=== PATIENT | female | born 1945 | race Caucasian/White ===

== ENCOUNTER → 2018-02-01 07:01 | Outpatient (CLI) | payer MEDICARE, OTHER, SELFPAY ==
[2018-02-01 10:20] LABS: Cholesterol 220 mg/dL (200); High Density Lipoprotein 70 mg/dL; Triglycerides 97 mg/dL; Very Low Density Lipoprotein 19 mg/dL (5-40)
== END ==
PROVIDERS: Family Provider Family Medicine; PCP Family Medicine; Visit Provider Family Medicine
DX: E78.00 Pure hypercholesterolemia, unspecified (principal)
CPT/HCPCS: 36415; 80061

== ENCOUNTER → 2018-08-23 06:25 | Outpatient (CLI) | payer MEDICARE, OTHER, SELFPAY ==
[2018-03-16 11:08] VITALS: BMI 22.2
[2018-08-23 07:42] LABS: Microalbumin,Random Urine 32.2 mg/L (NO RANGE EST.); Microalbumin:Creatinine Ratio 49.6 mg/g CRE (<30 mg/g CRE)
[2018-08-23 07:59] LABS: ALB/GLOB Ratio 1.3 RATIO (0.9-2.4); AST(SGOT) 38 U/L (15-37); Alanine Aminotransfer ALT/SGPT 45 U/L (13-56); Alkaline Phosphatase 91 U/L (45-117); Anion Gap 9 (5-15); BUN 19 mg/dL (7-18); BUN/Creat Ratio 15.1 RATIO (10-20); Calcium,Total 8.8 mg/dL (8.5-10.1); Chloride 106 mmol/L (98-107); Cholesterol 242 mg/dL (200); Creatinine, Serum 1.26 mg/dL (0.55-1.02); EST Glomerular Filtration Rate 44 mL/min (>60); Est Glom Filt Rate - Afr Amer 54 mL/min (>60); Glucose 103 mg/dL (74-106); High Density Lipoprotein 71 mg/dL; Potassium 4.5 mmol/L (3.5-5.1); Sodium Level 141 mmol/L (136-145); Thyroid Stim Hormone (TSH) 6.06 uIU/mL (0.358-3.74); Triglycerides 123 mg/dL; Very Low Density Lipoprotein 25 mg/dL (5-40)
--- OUTSIDE RECORDS SUMMARY | 2018-10-18 11:29 | XMS RPT_ITS ---
:1945 Author Organization OHIP Care Team Providers Name Role Phone Tatiana Xiao Attending Unavailable Daniel, Cesar Primary Care Unavailable Cesar Sanchez Attending Unavailable Daniel, Cesar Referring Unavailable Sanchez, Cesar Primary Care Unavailable Erick Anderson Attending Unavailable Sanchez, Cesar Referring Unavailable Daniel, Cesar Primary Care Unavailable Daniel, Cesar Attending Unavailable Sanchez, Cesar Referring Unavailable Sanchez, Cesar Primary Care Unavailable Kameron Game[employer] Consult[employer] Unavailable PROBLEMS PROBLEMS DATE TYPE CONDITION / CODE ATTENDING STATUS SOURCE 08/23/2018 Unknown I10 - Essential Daniel, Cesar Active [facility] ([facility]) [facility] hypertension / Hospital I10(ICD-10) Repository 02/01/2018 Unknown 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 mg/dL Normal UR CREAT 64.90 LAB L502.0500 NO RANGE EST. mg/L Normal 32.2 MICROALBUMIN ,UR LAB L502.0600 <30 mg/g CRE mg/g CRE High 49.6 MALB:CREAT Performed By: #### L502.0250 #### [facility] [address] [place], [address] COMPREHENSIVE METABOLIC Collected: 08/23/2018 Status: F Source: [facility] 6:30 AM [facility] REPOSITORY TYPE CODE TESTS RESULT OUT OF RANGE REFERENCE UNITS LAB L501.0100 74-106 mg/dL Normal GLU 103 Result Comment: Fasting Glucose result from 100 to 125 mg/dL suggests IMPAIRED HOMEOSTASIS per A.D.A. criteria. Please note revised GLUCOSE reference range effective 2017. LAB L501.1000 7-18 mg/dL High BUN 19 LAB L501.1100 0.55-1.02 mg/dL High CREAT,SERUM 1.26 Result Comment: The validity of the calculated GFR AND GFRAA in patients over 70 years has not been determined. Clinical correlation is essential. LAB L501.1110 >60 mL/min Low EST GFR 44 Result Comment: Non- GFR Calc LAB L501.1115 >60 mL/min Low EST GFR - AA 54 Result Comment: GFR Calc LAB L501.1300 10-20 RATIO Normal BUN/CRE 15.1 LAB L501.1500 6.4-8.2 g/dL T Normal PROT 7.0 LAB L501.1800 3.2-5.0 g/dL Normal ALB 4.0 LAB L501.1950 2.2-4.2 g/dL Normal GLOB 3.0 LAB L501.2000 0.9-2.4 RATIO Normal A/G 1.3 LAB L501.2200 8.5-10.1 mg/dL CA Normal 8.8 LAB L501.4100 15-37 U/L High AST 38 LAB L501.4305 45-117 U/L Normal ALK P 91 LAB L501.4405 13-56 U/L Normal ALT 45 LAB L501.4600 0.20-1.00 mg/dL T Normal BILI 0.50 LAB L501.5300 136-145 mmol/L NA Normal 141 LAB L501.5600 3.5-5.1 mmol/L K Normal 4.5 LAB L501.5900 98-107 mmol/L CL Normal 106 LAB L501.6100 21.0-32.0 mmol/L Normal CO2 26.0 LAB L501.6200 5-15 Normal GAP 9 Performed By: #### L500.4050, L500.4100, L501.9520 #### [facility] [address] [place], [place], [id number] LIPID PROFILE Collected: 08/23/2018 Status: F Source: [facility] 6:30 AM [facility] REPOSITORY TYPE CODE TESTS RESULT OUT OF RANGE REFERENCE UNITS LAB L501.4900 200 mg/dL High CHOL 242 Result Comment: <200 mg/dL Desirable 200-240 mg/dL Borderline >240 mg/dL High Risk LAB L501.5000 mg/dL Normal TRIG 123 Result Comment: The drugs N-Acetylcysteine and Metamizole may falsely depress this assay. Serum Triglycerides Reference Interval Normal <150 mg/dL Borderline high 150 - 199 mg/dL High 200 - 499 mg/dL Very High > or = 500 mg/dL LAB L501.6400 mg/dL Normal HDL 71 Result Comment: The drugs N-Acetylcysteine and Metamizole may falsely depress this assay. Reference Range HDL <40 mg/dL Low HDL Cholesterol HDL >or= 60 mg/dL High HDL Cholesterol LAB L501.6500 0-130 mg/dL High LDL 146 LAB L501.6600 5-40 mg/dL Normal VLDL 25 Performed By: #### L500.4050, L500.4100, L501.9520 #### [facility] [address] [place], [place], [id number] THYROID STIM HORMONE Collected: 08/23/2018 Status: F Source: ELOY (TSH) 6:30 AM [facility] REPOSITORY TYPE CODE TESTS RESULT OUT OF RANGE REFERENCE UNITS LAB L501.9520 0.358-3.74 uIU/mL High TSH 6.06 Performed By: #### L500.4050, L500.4100, L501.9520 #### [facility] [address] [place], [place], [id number] URGENT CARE VISIT Observed: 03/16/2018 Status: F Source: [facility] REPORT 12:03 PM [facility] REPOSITORY [facility] [place] [address] OFFICE VISIT Date of Service: 03/16/18 MR#: [id number] Acct: [id number] Name: BERRY BLUM Rep #: [id number] : 1945 Provider: Erick COOK Age/Sex: 72/F Location: [facility] Status: Signed Intake Vital Signs03/16/18 Height 5 ft 6 in 03/16/18 Weight: 138 lb 03/16/18 Body Mass Index (BMI) 22.2 03/16/18 Blood Pressure 118/72 Intake Visit Reasons: Cough 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 [Ecotrin] 81 mg PO DAILY@0800 05/27/16 [History Confirmed 03/16/18] Biotin 20,000 mcg PO DAILY 05/27/16 [History Confirmed 03/16/18] Calcium/D3/Mag Ox/Ag Service Manager/Arash/Zn [Caltrate+D3 Plus Mineral Minis] 1 ea PO DAILY 05/27/16 [History Confirmed 03/16/18] Cholecalciferol (VIT D3) [Vitamin D3] 1,000 unit PO DAILY 05/27/16 [History Confirmed 03/16/18] Flavoring Agent [Cinnamon] 3.7 ml MC DAILY 05/27/16 [History Confirmed 03/16/18] Metoprolol Tartrate 50 mg PO DAILY 05/27/16 [History Confirmed 03/16/18] Multivit-Min/Iron/Folic/Lutein [Centrum Silver Women Tablet] 1 ea PO DAILY 05/27/16 [History Confirmed 03/16/18] Tacoma-3 Fatty Acids [Tacoma-3] 1,000 mg PO DAILY 05/27/16 [History Confirmed 03/16/18] Ubidecarenone [Coq10] 200 mg PO DAILY 05/27/16 [History Confirmed 03/16/18] Vitamin B Complex/Folic Acid [Sm Vitamin B Complex Tablet] 0.4 mg PO DAILY 05/27/16 [History Confirmed 03/16/18] benzonatate 200 mg capsule 200 mg PO TID PRN #20 cap 03/16/18 [Rx Confirmed 03/16/18] [facility] Medical History Arthritis (Acute) History of cancer (Acute) neck/back pain (Acute) Hypertension (Chronic) Social History Smoking Status: Never smoker alcohol intake: current alcohol intake frequency: 0-2 drinks per day Alcohol type: wine HPI HPI Chief Complaint: Cough Details: BERRY BLUM, is a 72 F who presents to the office today for initial evaluation cough 3 days. Patient has no complaints fever, chills, sweats, rash, chest pain/shortness of breath. Patient is a non-smoker noting her had had similar symptoms 2 days ago which resolved without medical intervention for him. Patient notes no other associated symptoms and no other alleviating or aggravating factors. ROS Const Constitutional: No excessive sweating, abnormal sleep pattern, chills, fever(s), night sweats or body ache Eyes Eyes: No change in vision ENT ENT: No abnormal hearing, ear pain, ear discharge, ear pressure, hearing loss, post nasal drip or sinus pressure Resp Respiratory: Positive for cough; no chest congestion or shortness of breath Cardio Cardiology: No excessive sweating, chest pain at rest, chest pain with exertion, shortness of breath, dyspnea on exertion, irregular heart rhythm, generalized swelling or leg pain with exertion Gastro GI: No abdominal pain, change in stool character or change in bowel habits Musc Musculoskeletal: No joint pain, back pain or limited range of motion Skin Skin: No rash Neuro Neurology: No abnormal hearing, abnormal speech or abnormal movements Psych Psychiatric: No abnormal sleep pattern Endo Endocrine: No excessive sweating Exam Const General: cooperative, healthy appearing, no acute distress, comfortable Nutritional Appearance: average body habitus Orientation: alert, awake, oriented x3 HENMT Head: normal to inspection Ears: hearing grossly normal bilaterally, external ears normal, TM's normal bilaterally, EAC's normal Nose: external nose normal, nares normal, septum normal, no nasal discharge Face and sinus: normal facial exam, face symmetric, sinuses nontender Mouth: tongue normal, lip normal, oropharynx normal, oral mucosae normal Teeth and gingiva: dentition normal, gingiva normal Throat: uvula midline, tonsils normal, posterior oropharynx normal, no postnasal drainage Eyes General: appearance normal, both eyes and all related structures Neck Neck: normal visual inspection, full ROM, no lymphadenopathy, no meningeal signs, supple Neck mass: No Thyroid: thyroid normal Lymphatic: no lymphadenopathy noted Chest Chest palpation AND inspection: normal inspection of the chest Resp Effort AND Inspection: normal respiratory effort, able to speak in complete sentences, symmetric chest movement, no cough (No unsolicited cough appreciated during today's exam) Auscultation: Bilateral: Clear to Auscultation Cardio Palpation: normal PMI Rate: regular rate Rhythm: regular rhythm Heart Sounds: S1 normal, S2 normal, no gallops, no murmurs, no rubs Pulses: radial pulses present GI Inspection: normal to inspection Palpation: soft Skin General: no rashes or lesions noted Neuro General: alert, awake, oriented x3, gait normal Cognition: normal cognition Speech: speech normal Gait: normal gait Motor: muscle tone normal throughout Sensory Exam: no sensory deficits noted Psych Appearance: grossly normal Mental Status: mental status grossly normal Mood: congruent mood Affect: normal affect Speech and Movement: speech and movement normal Attitude: cooperative Thought Process: normal Thought Content: normal Judgment: judgment good Assessment AND Plan Problems 1. Bronchitis J40 Plan Benzonatate as needed as prescribed today. Clear fluids, rest, Tylenol as needed for symptomatic relief. Avoid smoke exposure. Follow-up with PCP in 5 7 days should symptoms not improved, sooner should symptoms worsen or any other concerns develop. Patient states acknowledging understanding all the above. This note was generated with [employer] dictation software. It may contain incorrect words, spelling, and punctuation that were not noted in checking the note before signing. Medications New: Coding Level of Care Code Off vis,est,level 3 Diagnoses Bronchitis J40 03/16/18 1203 <Electronically signed by Erick COOK> Date Erick COOK Cosigner Signature: Date (if applicable) CC: LIPID PROFILE Collected: 02/01/2018 Status: F Source: [facility] 7:06 AM [facility] REPOSITORY TYPE CODE TESTS RESULT OUT OF RANGE REFERENCE UNITS LAB L501.4900 200 mg/dL High CHOL 220 Result Comment: <200 mg/dL Desirable 200-240 mg/dL Borderline >240 mg/dL High Risk LAB L501.5000 mg/dL Normal TRIG 97 Result Comment: The drugs N-Acetylcysteine and Metamizole may falsely depress this assay. Serum Triglycerides Reference Interval Normal <150 mg/dL Borderline high 150 - 199 mg/dL High 200 - 499 mg/dL Very High > or = 500 mg/dL LAB L501.6400 mg/dL Normal HDL 70 Result Comment: The drugs N-Acetylcysteine and Metamizole may falsely depress this assay. Reference Range HDL <40 mg/dL Low HDL Cholesterol HDL >or= 60 mg/dL High HDL Cholesterol LAB L501.6500 0-130 mg/dL High LDL 131 LAB L501.6600 5-40 mg/dL Normal VLDL 19 Performed By: #### L500.4100 #### [facility] [address] [place], [address] LT BRST UNILAT KIRBY Observed: 10/12/2017 Status: F Source: [facility] ADD ON 8:23 AM [facility] REPOSITORY [facility] Services [address] [place] [address] Lt Brst Unilat Kirby Add On MR#: [id number] Acct: [id number] Name: BERRY BLUM Rep #: [id number] : 1945 F 72 From: Jaya Durand MD PCP: Cesar Sanchez MD Status: REG CLI Study: Lt Brst Unilat Kirby Add On Date of Exam: 10/12/17 Exam# [id number] Ordering Dr: Tatiana Xiao MD MAMMOGRAPHY - UNILATERAL SCREENING: LEFT BREAST REASON FOR EXAM: Female, 72 years old. Routine annual screening examination (unilateral). PERTINENT HISTORY: Personal history of breast cancer. Prior right mastectomy. TECHNIQUE: Digital unilateral breast kirby (3D mammographic acquisition) in the CC and MLO projections. 2-D mediolateral oblique (MLO) and craniocaudad (CC) views of both breasts were obtained. CAD: Full Field Digital Mammography with Computer Added Detection was performed. COMPARISON: Comparison is made with prior study dated September 23, 2016 and August 18, 2015. FINDINGS: Breast Composition: There are scattered areas of fibroglandular density. There are no dominant masses or suspicious calcifications. No other significant abnormalities are identified. There has been no significant change since the prior study. HPBI/Lt Brst Unilat Kirby Add On IMPRESSION: Stable unilateral screening mammogram. Yearly follow-up mammogram recommended. (A) ASSESSMENT CATEGORY: BIRADS Category 1: Negative. A letter regarding these results will be sent to the patient by the facility within 30 days. Approximately 10% of breast cancers are not detected by mammography. A normal mammogram should not delay biopsy of a clinically suspicious abnormality. [id number] Electronically Signed: Jaya Durand MD at 10:39 EST Tel [phone], Service support , CC: Tatiana Xiao MD; Cesar Sanchez MD Digital Asset Coordinator: Signed UNILABEL LT SCRN Observed: 10/12/2017 Status: F Source: [facility] W/BABITA 8:23 AM [facility] REPOSITORY [facility] Imaging Services [address] [place] [address] UNILAT LT SCRN W/CAD MR#: [id number] Acct: [id number] Name: BERRY BLUM Rep #: [id number] : 1945 F 72 From: Jaya Durand MD PCP: Cesar Sanchez MD Status: REG CLI Study: UNILAT LT SCRN W/CAD Date of Exam: 10/12/17 Exam# [id number] Ordering Dr: Tatiana Xiao MD MAMMOGRAPHY - UNILATERAL SCREENING: LEFT BREAST REASON FOR EXAM: Female, 72 years old. Routine annual screening examination (unilateral). PERTINENT HISTORY: Personal history of breast cancer. Prior right mastectomy. TECHNIQUE: Digital unilateral breast kirby (3D mammographic acquisition) in the CC and MLO projections. 2-D mediolateral oblique (MLO) and craniocaudad (CC) views of both breasts were obtained. CAD: Full Field Digital Mammography with Computer Added Detection was performed. COMPARISON: Comparison is made with prior study dated September 23, 2016 and August 18, 2015. FINDINGS: Breast Composition: There are scattered areas of fibroglandular density. There are no dominant masses or suspicious calcifications. No other significant abnormalities are identified. There has been no significant change since the prior study. [facility] SCRN W/CAD IMPRESSION: Stable unilateral screening mammogram. Yearly follow-up mammogram recommended. (A) ASSESSMENT CATEGORY: BIRADS Category 1: Negative. A letter regarding these results will be sent to the patient by the facility within 30 days. Approximately 10% of breast cancers are not detected by mammography. A normal mammogram should not delay biopsy of a clinically suspicious abnormality. [id number] Electronically Signed: Jaya Durand MD at 10:39 EST Tel [phone], Service support , CC: Tatiana Xiao MD; Cesar Sanchez MD Digital Asset Coordinator: Signed ALLERGIES ALLERGIES DATE TYPE / CODE NAME / CODE REACTION SEVERITY SOURCE 03/16/2018 Drug bupropion Hives [facility] [place] [facility] Allergy/416 HCl/[id number](R Hospital 616949(SNOM XNORM) Repository ED CT) ENCOUNTERS ENCOUNTERS ADMIT/DISCHARGE ACCOUNT ADMITTING ENCOUNTER LOCATION SOURCE NUMBER CLASS 08/23/2018 [id number] Ambulatory [place] [facility] ing:LAB Repository 03/16/2018/ [id number] Ambulatory BMSBuilding:B [place] [facility] 1 [place] Hospital Repository 02/01/2018 [id number] Ambulatory [place] 8 [facility] ing:MTLAB Repository 10/12/2017 [id number] Ambulatory [place] 0 [facility] ing:BI Repository PAYERS PAYERS ENCOUNTER GUARANTOR PAYER SUBSCRIBER SOURCE 08/23/2018 BERRY A Primary BERRY A [place] [id number] Insurance:MEDICARE WATSONDOB: Formerly [facility] SHIMA PART A BPolicy [place]: [id number] Repository [address]Rye: (330) Date:2018-08-23 [phone] () 08/23/2018 Secondary BERRY A [place] Insurance:HUMANA WATSONDOB: Formerly [facility] [id number] Hospital Number: Repository [id number] Date:[id number] [address] [place] [address]ZA: 08/23/2018 Tertiary NOT GIVENUNK [place] Insurance:SELF PAY [facility] Number: Effective Repository Date:2018-08-23 03/16/2018 BERRY A Primary BERRY A [place] [id number] Insurance:MEDICARE WATSONDOB: Formerly [facility] SHIMA PART A BPolicy Number: [id number] [id number] Repository [address]Gyr: (330) Date:2018-03-16 [phone] () 03/16/2018 Secondary BERRY A [place] Insurance:HUMANA WATSONDOB: [facility]ly [facility] [id number] Hospital Number: Repository [id number] Date:0577-22-08CT [address] [place] [id number]: 03/16/2018 Tertiary NOT GIVENUNK [place] Insurance:SELF PAY [facility] Number: Effective Repository Date:2018-03-16 02/01/2018 Berry A Primary Berry A [facility] [id number] Insurance:MEDICARE WatsonDOB: Community Shima PART A BPolicy Number: [id number] [id number] Repository [address]Nqr: Date:2018-02-01 ~33 0-2 (HP) 02/01/2018 Secondary Berry A [place] Insurance:HUMANA WatsonDOB: [facility]ly [facility] [id number] Hospital Number: Repository [id number] Date:[id number] [address] [address]AG: 02/01/2018 Tertiary NOT GIVENUNK [facility] Insurance:SELF PAY [facility] Number: Effective Repository Date:2018-02-01 10/12/2017 Berry A Primary Berry A [facility] [id number] Insurance:MEDICARE WatsonDOB: Community Shima PART A BPolicy Number: [id number] [id number] Repository [address]Nyd: Date:2017-09-06 ~33 0-2 (HP) 10/12/2017 Secondary Berry A [facility] Insurance:HUMANA WatsonDOB: [facility] [id number] Hospital Number: Repository [id number] Date:[id number] [address] [address]VA: 10/12/2017 Tertiary NOT GIVENUNK [facility] Insurance:SELF PAY [facility] Number: Effective Repository Date:2017-09-06
== END ==
PROVIDERS: Family Provider Family Medicine; PCP Family Medicine; Referring Provider Family Medicine; Visit Provider Family Medicine
DX: I10 Essential (primary) hypertension (principal); E78.00 Pure hypercholesterolemia, unspecified
CPT/HCPCS: 36415; 80053; 80061; 82043; 82570; 84443

== ENCOUNTER → 2018-10-26 09:19 | Outpatient (CLI) | payer MEDICARE, OTHER, SELFPAY ==
--- NOTE | 2018-10-26 09:24 | BI_ITS ---
MAMMOGRAPHY - UNILATERAL DIAGNOSTIC: LEFT BREAST REASON FOR EXAM: Female, 73 years old. Prior right mastectomy and reconstruction. PERTINENT HISTORY: Personal history of breast cancer. TECHNIQUE: Digital unilateral breast montse (3D mammographic acquisition) in the CC and MLO projections. 2-D mediolateral oblique (MLO) and craniocaudad (CC) views of both breasts were obtained. CAD: Full Field Digital Mammography with Computer Added Detection was performed. COMPARISON: Comparison is made with prior study dated October 12, 2017 and September 23, 2016. FINDINGS: Breast Composition: There are scattered areas of fibroglandular density. There are no dominant masses or suspicious calcifications. No other significant abnormalities are identified. There has been no significant change since the prior study. BI/UNILAT LT SCRN W/CAD IMPRESSION: Stable unilateral diagnostic mammogram. One year follow-up mammogram recommended. (A) ASSESSMENT CATEGORY: BIRADS Category 1: Negative. A letter regarding these results will be sent to the patient by the facility within 30 days. Approximately 10% of breast cancers are not detected by mammography. A normal mammogram should not delay biopsy of a clinically suspicious abnormality. Electronically Signed: Jaya Durand MD at 10:59 EST , Service support ,
--- NOTE | 2018-10-26 09:26 | BD_ITS ---
STUDY: DUAL ENERGY X-RAY ABSORPTIOMETRY / DXA REASON FOR EXAM: Female, 73 years old. The patient is postmenopausal. Loss of height. History of breast cancer. TECHNIQUE: Bone Mineral Density (BMD) measurements of lumbar spine and bilateral hips were obtained. COMPARISON: None. FINDINGS: Lumbar Spine (L1-L4): g/cm2 (1.526) / T-score (3.0) / Z-score (4.7) Findings are suggestive of normal bone density with a low fracture risk. Left Femur Total: g/cm2 (1.098) / T-score (0.7) / Z-score (2.3) Left Femoral Neck: g/cm2 (0.981) / T-score (-0.4) / Z-score (1.4) Right Femur Total: g/cm2 (1.115) / T-score (0.9) / Z-score (2.5) Right Femoral Neck: g/cm2 (1.0-4) / T-score (-0.1) / Z-score (1.7) BD/Dexa Bone Density Study IMPRESSION: The patient is considered normal as outlined below according to World [place] Organization (WHO) criteria with a low fracture risk. Reference Information: The T-score is the number of standard deviations above or below the standard which is normal for young adults at their peak bone mineral density. The World Health Organization (WHO) interprets the T-scores as follows: Above -1 Normal bone density Between -1 and -2.5 Osteopenia Equal to / or below -2.5 Osteoporosis As a practical clinical guideline, osteopenia may be graded as follows: Mild -1 through -1.5 Moderate -1.6 through -2.0 Severe -2.1 through -2.4 The Z-score is the number of standard deviations above or below age-matched controls. A Z-score of less than -1.5 would be considered abnormal. References: 1. NIH Osteoporosis and Related Bone Diseases http://www.osteo.org 2. International Society for Clinical Densitometry http://www.iscd.org 3. National Osteoporosis Foundation http://www.nof.org Electronically Signed: Jaya Durand MD at 15:37 EST , Service support ,
== END ==
PROVIDERS: Family Provider Family Medicine; PCP Family Medicine; Referring Provider Obstetrics & Gynecology; Visit Provider Obstetrics & Gynecology
DX: Z12.31 Encounter for screening mammogram for malignant neoplasm of breast (principal); Z13.820 Encounter for screening for osteoporosis; Z78.0 Asymptomatic menopausal state; Z85.3 Personal history of malignant neoplasm of breast
CPT/HCPCS: 77061; 77063; 77067; 77080; G0279

== ENCOUNTER → 2019-02-02 | Outpatient (CLI) | payer MEDICARE, OTHER, SELFPAY ==
[2019-02-02 08:08] LABS: ALB/GLOB Ratio 1.4 RATIO (0.9-2.4); AST(SGOT) 36 U/L (15-37); Alanine Aminotransfer ALT/SGPT 43 U/L (13-56); Albumin, Serum 3.9 g/dL (3.2-5.0); Alkaline Phosphatase 74 U/L (45-117); Anion Gap 6 (5-15); BUN 17 mg/dL (7-18); BUN/Creat Ratio 14.5 RATIO (10-20); Calcium,Total 8.5 mg/dL (8.5-10.1); Chloride 109 mmol/L (98-107); Cholesterol 241 mg/dL (200); Creatinine, Serum 1.17 mg/dL (0.55-1.02); EST Glomerular Filtration Rate 48 mL/min (>60); Est Glom Filt Rate - Afr Amer 58 mL/min (>60); Globulin 2.7 g/dL (2.2-4.2); Glucose 94 mg/dL (74-106); High Density Lipoprotein 65 mg/dL; Potassium 4.2 mmol/L (3.5-5.1); Protein, Total 6.6 g/dL (6.4-8.2); Sodium Level 142 mmol/L (136-145); T4 Free Direct 0.91 ng/dL (0.76-1.46); Thyroid Stim Hormone (TSH) 2.62 uIU/mL (0.358-3.74); Triglycerides 130 mg/dL; Very Low Density Lipoprotein 26 mg/dL (5-40)
== END | disposition home or self-care (01) ==
LOC: LAB 06:08
PROVIDERS: Family Provider Family Medicine; PCP Family Medicine; Referring Provider Family Medicine; Visit Provider Family Medicine
DX: I10 Essential (primary) hypertension (principal); R79.89 Other specified abnormal findings of blood chemistry; E78.5 Hyperlipidemia, unspecified; E03.9 Hypothyroidism, unspecified
CPT/HCPCS: 36415; 80053; 80061; 84439; 84443; 84481

== ENCOUNTER → 2019-06-05 13:45 | Outpatient (CLI) | payer MEDICARE, OTHER, SELFPAY ==
[2019-06-05 13:20] VITALS: BMI 25.4
--- NOTE | 2019-06-05 13:46 | CT_ITS ---
STUDY: LOW DOSE CT LUNG CANCER SCREENING REASON FOR EXAM: Female, 73 years old. Former smoker. Quit in 2005. 1 pack per day for 40 years. History of right breast carcinoma with mastectomy. RADIATION DOSAGE (If Supplied By Facility): CTDIvol = ( 1.70 ) mGy, DLP = ( 55.94 ) mGycm TECHNIQUE: No contrast was administered. Low dose technique was utilized (average mAS-38 and kVp 120). 1.25 mm axial source images with a slice interval of 1.25-mm were reconstructed in lung windows. 2.5 mm axial source images with a slice interval of 2.5-mm were reconstructed in lung windows. 5.0 mm axial source images with a slice interval of 5.0-mm were reconstructed in soft tissue windows. Nodule measured using lung windows on PACS and/or independent workstation with automated measurement of minimum and maximum diameter. Nodule measurement reported as average diameter rounded to the nearest whole number. Growth is defined as an increase ins size of greater than 1.5 mm. COMPARISON: None. Prior right mastectomy with right breast prosthesis. NODULES: No suspicious nodules seen. Emphysema: Emphysematous changes more prominent in the upper lobes. Findings suggestive scarring in the anterior aspect of the lingular segment of the left lower lobe. Aorta: Atherosclerotic calcification plaques. Coronary arteries: Coronary artery calcification. Mediastinal nodes: Unremarkable. Other chest and abdominal findings: Degenerative changes of the thoracic spine. CT/Low Dose CT Lung Screening IMPRESSION: Lung-RADS category 2 - Continue annual screening with LDCT in 12 months. IMPORTANT NOTES FOR USE: ACR Lung-RADS Version 1.0 Assessment Categories Release Date: January 21, 2014 Category: Coded 0-4 bases on nodule(s) with highest degree of suspicion. Negative screen is defined as categories 1 and 2; a positive screen is defined as categories 3 and 4. Category 3 and 4A nodules that are unchanged on interval CT should be coded as category 2, and individuals returned to screening in 12 months. Category 4X: Category 3 or 4 nodules with additional imaging findings that increase the suspicion of lung cancer, such as spiculation, GGN that doubles in size in 1 year, enlarged lymph notes, etc. Category Modifiers: S (significant finding unrelated to lung cancer) and C (prior history of treated lung cancer) may be added to the 0-4 Lung-RADS Electronically Signed: Jaya Durand, at 14:43 EDT , Service support ,
== END ==
PROVIDERS: Family Provider Family Medicine; PCP Family Medicine; Referring Provider Nurse Practitioner Family; Visit Provider Nurse Practitioner Family
DX: Z12.2 Encounter for screening for malignant neoplasm of respiratory organs (principal); Z87.891 Personal history of nicotine dependence
CPT/HCPCS: G0297

== ENCOUNTER → 2019-10-31 06:50 | Outpatient (CLI) | payer MEDICARE, OTHER, SELFPAY ==
[2019-06-05 13:20] VITALS: BMI 25.4
[2019-10-31 07:59] LABS: ALB/GLOB Ratio 1.4 RATIO (0.9-2.4); AST(SGOT) 23 U/L (15-37); Alanine Aminotransfer ALT/SGPT 34 U/L (13-56); Albumin, Serum 3.9 g/dL (3.2-5.0); Alkaline Phosphatase 68 U/L (45-117); Anion Gap 4 (5-15); BUN 16 mg/dL (7-18); BUN/Creat Ratio 13.1 RATIO (10-20); Calcium,Total 9.3 mg/dL (8.5-10.1); Chloride 107 mmol/L (98-107); Cholesterol 247 mg/dL (200); Creatinine, Serum 1.22 mg/dL (0.55-1.02); EST Glomerular Filtration Rate 46 mL/min (>60); Est Glom Filt Rate - Afr Amer 55 mL/min (>60); Globulin 2.7 g/dL (2.2-4.2); Glucose 90 mg/dL (74-106); High Density Lipoprotein 77 mg/dL; Potassium 3.9 mmol/L (3.5-5.1); Protein, Total 6.6 g/dL (6.4-8.2); Sodium Level 142 mmol/L (136-145); Triglycerides 192 mg/dL; Very Low Density Lipoprotein 38 mg/dL (5-40)
[2019-10-31 08:11] LABS: Microalbumin,Random Urine 29.1 mg/L (NO RANGE EST.); Microalbumin:Creatinine Ratio 43.2 mg/g CRE (<30 mg/g CRE)
== END ==
PROVIDERS: PCP Family Medicine; Referring Provider Family Medicine; Visit Provider Family Medicine
DX: I10 Essential (primary) hypertension (principal); E78.00 Pure hypercholesterolemia, unspecified
CPT/HCPCS: 36415; 80053; 80061; 82043; 82570

== ENCOUNTER → 2019-11-08 07:30 | Outpatient (CLI) | payer MEDICARE, OTHER, SELFPAY ==
[2019-06-05 13:20] VITALS: BMI 25.4
--- NOTE | 2019-11-08 07:34 | BI_ITS ---
MAMMOGRAPHY - UNILATERAL SCREENING: LEFT BREAST REASON FOR EXAM: Female, 74 years old. Routine annual screening examination (unilateral). PERTINENT HISTORY: Personal history of breast cancer. Prior right mastectomy and right breast reconstruction. TECHNIQUE: Digital unilateral breast waleska (3D mammographic acquisition) in the CC and MLO projections. 2-D mediolateral oblique (MLO) and craniocaudad (CC) views of both breasts were obtained. CAD: Full Field Digital Mammography with Computer Added Detection was performed. COMPARISON: Comparison is made with prior mammogram dated October 26, 2018 and October 12, 2017. FINDINGS: Breast Composition: There are scattered areas of fibroglandular density. There are no dominant masses or suspicious calcifications. Stable benign-appearing small left axillary lymph nodes. No other significant abnormalities are identified. There has been no significant change since the prior study. BI/SCREEN MAMM (CAD) W/WALESKA UNI L IMPRESSION: Stable unilateral screening mammogram. Yearly follow-up mammogram recommended. (A) ASSESSMENT CATEGORY: BIRADS Category 2: Benign. A letter regarding these results will be sent to the patient by the facility within 30 days. Approximately 10% of breast cancers are not detected by mammography. A normal mammogram should not delay biopsy of a clinically suspicious abnormality. [id number] Electronically Signed: Jaya Durand, at 8:51 EST , Service support ,
== END ==
PROVIDERS: PCP Family Medicine; Referring Provider Family Medicine; Visit Provider Family Medicine
DX: Z12.31 Encounter for screening mammogram for malignant neoplasm of breast (principal); Z85.3 Personal history of malignant neoplasm of breast
CPT/HCPCS: 77063; 77067

== ENCOUNTER → 2020-04-10 09:08 | Outpatient (CLI) | payer MEDICARE, OTHER, SELFPAY ==
[2019-06-05 13:20] VITALS: BMI 25.4
[2020-04-10 10:43] LABS: BUN 12 mg/dL (7-18); Creatinine, Serum 1.07 mg/dL (0.55-1.02); Glucose 98 mg/dL (74-106)
[2020-04-10 10:44] LABS: Anion Gap 6 (5-15); BUN/Creat Ratio 11.2 RATIO (10-20); Calcium,Total 9.1 mg/dL (8.5-10.1); Chloride 108 mmol/L (98-107); EST Glomerular Filtration Rate 53 mL/min (>60); Est Glom Filt Rate - Afr Amer 64 mL/min (>60); Potassium 4.6 mmol/L (3.5-5.1); Sodium Level 141 mmol/L (136-145)
[2020-04-10 13:28] LABS: Microalbumin,Random Urine 10.3 mg/L (NO RANGE EST.); Microalbumin:Creatinine Ratio 59.5 mg/g CRE (<30 mg/g CRE)
== END ==
PROVIDERS: PCP Family Medicine; Referring Provider Family Medicine; Visit Provider Family Medicine
DX: I10 Essential (primary) hypertension (principal)
CPT/HCPCS: 36415; 80048; 82043; 82570

== ENCOUNTER → 2020-06-05 06:02 | Outpatient (CLI) | payer MEDICARE, OTHER, SELFPAY ==
[2020-06-04 08:52] VITALS: BMI 25.2
[2020-06-05 08:22] LABS: AST(SGOT) 31 U/L (15-37); Alanine Aminotransfer ALT/SGPT 35 U/L (13-56); Albumin, Serum 3.8 g/dL (3.2-5.0); Alkaline Phosphatase 95 U/L (45-117); Bilirubin, Direct 0.15 mg/dL (0.00-0.30); Cholesterol 239 mg/dL (200); Globulin 2.8 g/dL (2.2-4.2); High Density Lipoprotein 58 mg/dL; Protein, Total 6.6 g/dL (6.4-8.2); Triglycerides 206 mg/dL; Very Low Density Lipoprotein 41 mg/dL (5-40)
== END ==
PROVIDERS: PCP Family Medicine; Referring Provider Internal Medicine Cardiovascular Disease; Visit Provider Internal Medicine Cardiovascular Disease
DX: E78.5 Hyperlipidemia, unspecified (principal); R07.89 Other chest pain
CPT/HCPCS: 36415; 80061; 80076

== ENCOUNTER → 2020-06-17 12:19 | Outpatient (CLI) | payer MEDICARE, OTHER, SELFPAY ==
[2019-06-05 13:20] VITALS: BMI 25.4
[2020-06-04 08:52] VITALS: BMI 25.2
--- NOTE | 2020-06-17 12:20 | CT_ITS ---
STUDY: LOW DOSE CT LUNG CANCER SCREENING REASON FOR EXAM: Female, 74 years old. LUNG CANCER SCREENING 40 PACK YEAR HISTORY RADIATION DOSAGE (If Supplied By Facility): CTDIvol = ( 3.02 ) mGy, DLP = ( 109.10 ) mGycm TECHNIQUE: No contrast was administered. Low dose technique was utilized (average mAS-38 and kVp 120). 1.25 mm axial source images with a slice interval of 1.25-mm were reconstructed in lung windows. 2.5 mm axial source images with a slice interval of 2.5-mm were reconstructed in lung windows. 5.0 mm axial source images with a slice interval of 5.0-mm were reconstructed in soft tissue windows. Nodule measured using lung windows on PACS and/or independent workstation with automated measurement of minimum and maximum diameter. Nodule measurement reported as average diameter rounded to the nearest whole number. Growth is defined as an increase ins size of greater than 1.5 mm. COMPARISON: Comparison is made with prior study dated 06/05/2019. Prior right mastectomy and breast prosthesis. NODULES: No suspicious nodules are seen. Emphysema: Stable emphysematous changes more prominent in the upper lobes. Mild scarring in the anterior aspect of the lingular segment of the left upper lobe. Aorta: Atherosclerotic plaque formation of the aortic arch. Coronary arteries: Coronary artery calcification. Heart: Unremarkable Pulmonary artery: Unremarkable Mediastinal nodes: Small mediastinal lymph nodes. Other chest and abdominal findings: CT/Low Dose CT Lung Screening IMPRESSION: Lung-RADS category 2 - Continue annual screening with LDCT in 12 months. IMPORTANT NOTES FOR USE: ACR Lung-RADS Version 1.0 Assessment Categories Release Date: January 21, 2014 Category: Coded 0-4 bases on nodule(s) with highest degree of suspicion. Negative screen is defined as categories 1 and 2; a positive screen is defined as categories 3 and 4. Category 3 and 4A nodules that are unchanged on interval CT should be coded as category 2, and individuals returned to screening in 12 months. Category 4X: Category 3 or 4 nodules with additional imaging findings that increase the suspicion of lung cancer, such as spiculation, GGN that doubles in size in 1 year, enlarged lymph notes, etc. Category Modifiers: S (significant finding unrelated to lung cancer) and C (prior history of treated lung cancer) may be added to the 0-4 Lung-RADS Electronically Signed: Jaya Durand, at 12:58 EDT , Service support ,
== END ==
PROVIDERS: PCP Family Medicine; Referring Provider Nurse Practitioner Family; Visit Provider Nurse Practitioner Family
DX: Z12.2 Encounter for screening for malignant neoplasm of respiratory organs (principal); Z87.891 Personal history of nicotine dependence
CPT/HCPCS: G0297

== ENCOUNTER → 2020-06-23 06:46 | Outpatient (CLI) | payer MEDICARE, OTHER, SELFPAY ==
[2020-06-04 08:52] VITALS: BMI 25.2
--- NOTE | 2020-06-23 06:47 | ECHOCS_ITS ---
Reason For Study: Murmur Procedure This was a 2D Doppler, Color Flow transthoracic echocardiogram. Contrast injection was performed. Exam performed in department. Left Ventricle Normal LV size. Left ventricular systolic function is normal. The estimated ejection fraction is 65 %. Stage 1 diastolic dysfunction. No regional wall motion abnormalities noted. Right Ventricle Normal RV size. Normal systolic function. Atria Normal left atrium. Normal right atrium. Mitral Valve Normal mitral valve. Mild (1+) mitral valve insufficiency. Tricuspid Valve Normal tricuspid valve. Mild (1+) tricuspid valve insufficiency. Pulmonary artery systolic pressure is 30 mmHg. Aortic Valve Trisinus/trileaflet aortic valve. Mild focal aortic valve calcification. Mild aortic stenosis. Pulmonic Valve Normal pulmonic valve. Great Vessels Calcified aortic root. The pulmonary artery is normal size. Normal inferior vena cava. Pericardium/Pleural No pericardial effusion. Medication Diluted definity 3ml given slow IV push to enhance endocardial definition. MMode/2D Measurements & Calculations LVIDd: 4.9 cm IVSd: 0.96 cm LVOT diam: 2.1 cm LVIDs: 2.9 cm LVPWd: 0.97 cm RVDd: 2.8 cm FS: 40.5 % LVOT area: 3.4 cm2 Ao root diam: 3.1 cm LAV(MOD-bp): 41.6 ml LA A4 area: 16.7 cm2 LAV(MOD-bp) Indexed: 23.7 ml/m2 LAV(MOD-sp2): 42.2 ml LAV(MOD-sp4): 38.5 ml LA dimension(2D): 4.4 cm RA A4 area: 11.7 cm2 Doppler Measurements & Calculations MV E max angel: 55.1 cm/sec Lat Peak E' Angel: 5.4 cm/sec Med Peak E' Angel: 2.8 cm/sec MV A max angel: 85.7 cm/sec E/E' lat: 10.3 E/E' med: 19.9 MV E/A: 0.64 Ao V2 max: 144.9 cm/sec LV V1 max: 78.5 cm/sec PA V2 max: 66.7 cm/sec Ao max P.4 mmHg LV V1 max P.5 mmHg Ao V2 mean: 104.4 cm/sec Ao mean P.8 mmHg Ao V2 VTI: 33.3 cm CINDY(V,D): 1.8 cm2 TR max angel: 254.1 cm/sec TR max P.8 mmHg Interpretation Summary Normal LV size. Left ventricular systolic function is normal. The estimated ejection fraction is 65 %. Stage 1 diastolic dysfunction. Contrast injection was performed. Ordering Physician: Kameron Gamez Referring Physician: Cesar Sanchez Performed By: Maya Logan, RDCS, RVT
--- NOTE | 2020-06-23 18:19 | STRESSREP ---
Stress Test Report Exercise myocardial perfusion stress test. 74-year-old lady with a history of incomplete right bundle branch block hypertension and hyperlipidemia. Stress protocol: Resting EKG demonstrates normal sinus rhythm with a rate of 55 bpm right bundle branch block is noted. Resting blood pressure is 114/70 mmHg. The patient exercised according to the regular Miguel protocol for a total duration of 9 minutes. The maximum heart rate attained was 141 bpm which was 96% of maximum predicted heart rate the maximum workload was 10.1 metabolic equivalents. At rest there were no ST or T wave changes noted to suggest ischemia. At peak exercise upsloping ST changes noted less than 1 mm. The above did not meet the criteria for ischemia. No clinical angina was noted the test was terminated due to the target heart rate being achieved as well as dyspnea. The peak blood pressure was 156/72 mmHg with a rate-pressure product of 21,600. Myocardial perfusion protocol. 10.9 mCi of technetium 99m sestamibi was injected at rest. The patient exercised according to regular Miguel protocol for 9 minutes at peak exercise 32.6 mCi of technetium 99m sestamibi was injected stress images were obtained stress and rest images were reconstructed and compared in the short axis vertical long horizontal long axis. Gated images were also obtained. Perfusion SPECT analysis: Review of the stress images demonstrate normal uptake of tracer noted in all areas of the myocardium the resting images similar demonstrate normal uptake of tracer noted in all areas of the myocardium. No areas of reversibility are noted suggest ischemia no previous infarct is noted. Gated SPECT analysis: The gated ejection fraction is noted to be 86%. Conclusion: Exercise myocardial perfusion stress test with no evidence of ischemia noted at a high workload. No clinical angina noted. Preserved ejection fraction.
== END ==
PROVIDERS: PCP Family Medicine; Referring Provider Internal Medicine Cardiovascular Disease; Visit Provider Internal Medicine Cardiovascular Disease
DX: R07.89 Other chest pain (principal)
CPT/HCPCS: 78452; 93017; 93306; A9500; Q9957; A4216; C8929

== ENCOUNTER → 2020-11-10 07:02 | Outpatient (CLI) | payer MEDICARE, OTHER, SELFPAY ==
[2020-06-04 08:52] VITALS: BMI 25.2
--- NOTE | 2020-11-10 07:05 | BI_ITS ---
MAMMOGRAPHY - UNILATERAL SCREENING: LEFT BREAST REASON FOR EXAM: Female, 75 years old. Routine annual screening examination (unilateral). PERTINENT HISTORY: Personal history of breast cancer. Prior right mastectomy. TECHNIQUE: Digital unilateral breast waleska (3D mammographic acquisition) in the CC and MLO projections. 2-D mediolateral oblique (MLO) and craniocaudad (CC) views of both breasts were obtained. CAD: Full Field Digital Mammography with Computer Added Detection was performed. COMPARISON: Comparison is made with prior study dated 11/08/2019 and 10/26/2018. FINDINGS: Breast Composition: There are scattered areas of fibroglandular density. There are no dominant masses or suspicious calcifications. Stable small benign-appearing left axillary lymph nodes. No other significant abnormalities are identified. There has been no significant change since the prior study. BI/SCREEN MAMM (CAD) W/WALESKA UNI L IMPRESSION: Stable unilateral screening mammogram. Yearly follow-up mammogram recommended. (A) ASSESSMENT CATEGORY: BIRADS Category 2: Benign. A letter regarding these results will be sent to the patient by the facility within 30 days. Approximately 10% of breast cancers are not detected by mammography. A normal mammogram should not delay biopsy of a clinically suspicious abnormality. [id number] Electronically Signed: Jaya Durand MD at 8:50 EST , Service support ,
== END ==
PROVIDERS: PCP Family Medicine; Referring Provider Student in an Organized Health Care Education/Training Program; Visit Provider Student in an Organized Health Care Education/Training Program
DX: Z12.31 Encounter for screening mammogram for malignant neoplasm of breast (principal); Z85.3 Personal history of malignant neoplasm of breast
CPT/HCPCS: 77063; 77067

== ENCOUNTER 2020-11-19 12:29 | Outpatient (RCR) | payer MEDICARE, OTHER, SELFPAY ==
[2020-06-04 08:52] VITALS: BMI 25.2
== END 2020-11-19 23:59 ==
LOC: IMMUN 12:29
PROVIDERS: PCP Family Medicine; Referring Provider Family Medicine; Visit Provider Family Medicine
DX: Z23 Encounter for immunization (principal)
CPT/HCPCS: 0011A; 0012A; 91301

== ENCOUNTER → 2021-05-12 06:34 | Outpatient (CLI) | payer MEDICARE, OTHER, SELFPAY ==
[2020-06-04 08:52] VITALS: BMI 25.2
[2021-05-12 07:50] LABS: Microalbumin,Random Urine 29.9 mg/L (NO RANGE EST.); Microalbumin:Creatinine Ratio 48.3 mg/g CRE (<30 mg/g CRE)
[2021-05-12 08:05] LABS: Anion Gap 7 (5-15); BUN 18 mg/dL (7-18); BUN/Creat Ratio 16.2 RATIO (10-20); Calcium,Total 8.9 mg/dL (8.5-10.1); Chloride 106 mmol/L (98-107); Cholesterol 263 mg/dL (200); Creatinine, Serum 1.11 mg/dL (0.55-1.02); EST Glomerular Filtration Rate 51 mL/min (>60); Est Glom Filt Rate - Afr Amer 62 mL/min (>60); Glucose 100 mg/dL (74-106); High Density Lipoprotein 66 mg/dL; Sodium Level 140 mmol/L (136-145); Thyroid Stim Hormone (TSH) 3.96 uIU/mL (0.358-3.74); Triglycerides 245 mg/dL; Very Low Density Lipoprotein 49 mg/dL (5-40)
== END ==
PROVIDERS: PCP Family Medicine; Referring Provider Family Medicine; Visit Provider Family Medicine
DX: E78.00 Pure hypercholesterolemia, unspecified (principal); I10 Essential (primary) hypertension; R79.89 Other specified abnormal findings of blood chemistry
CPT/HCPCS: 36415; 80048; 80061; 82043; 82570; 84439; 84443

== ENCOUNTER → 2021-07-22 07:07 | Outpatient (CLI) | payer MEDICARE, OTHER, SELFPAY ==
[2021-07-22 10:31] LABS: Cholesterol 235 mg/dL (200); Free T3 2.8 pg/mL (2.18-3.98); High Density Lipoprotein 61 mg/dL; T4 Free Direct 0.98 ng/dL (0.76-1.46); Thyroid Stim Hormone (TSH) 2.02 uIU/mL (0.358-3.74); Triglycerides 163 mg/dL; Very Low Density Lipoprotein 33 mg/dL (5-40)
== END ==
PROVIDERS: PCP Family Medicine; Referring Provider Family Medicine; Visit Provider Family Medicine
DX: E78.00 Pure hypercholesterolemia, unspecified (principal); R79.89 Other specified abnormal findings of blood chemistry
CPT/HCPCS: 36415; 80061; 84439; 84443; 84481

== ENCOUNTER 2021-11-12 08:16 | Outpatient (CLI) | payer MEDICARE, OTHER, SELFPAY ==
--- NOTE | 2021-11-12 08:17 | BI_ITS ---
MAMMOGRAPHY - UNILATERAL SCREENING: LEFT BREAST REASON FOR EXAM: Female, 76 years old. Routine annual screening examination (unilateral). PERTINENT HISTORY: Personal history of breast cancer. Prior right mastectomy with a reconstructive surgery. TECHNIQUE: Digital unilateral breast waleska (3D mammographic acquisition) in the CC and MLO projections. 2-D mediolateral oblique (MLO) and craniocaudad (CC) views of both breasts were obtained. CAD: Full Field Digital Mammography with Computer Added Detection was performed. COMPARISON: Comparison is made with prior study dated 11/10/2020 and 11/08/2019. FINDINGS: Breast Composition: There are scattered areas of fibroglandular density. There are no dominant masses or suspicious calcifications. Stable small benign-appearing left axillary lymph nodes. No other significant abnormalities are identified. There has been no significant change since the prior study. BI/SCREEN MAMM (CAD) W/WALESKA UNI L IMPRESSION: Stable unilateral screening mammogram. Yearly follow-up mammogram recommended. (A) ASSESSMENT CATEGORY: BIRADS Category 3: Probably Benign - Short-Interval Follow-up Suggested. A letter regarding these results will be sent to the patient by the facility within 30 days. Approximately 10% of breast cancers are not detected by mammography. A normal mammogram should not delay biopsy of a clinically suspicious abnormality. [id number] Electronically Signed: Jaya Durand MD at 9:54 EST ,
== END 2021-11-12 23:59 | disposition home or self-care (01) ==
LOC: OPBI 08:16
PROVIDERS: PCP Family Medicine; Referring Provider Nurse Practitioner Family; Visit Provider Nurse Practitioner Family
DX: Z12.31 Encounter for screening mammogram for malignant neoplasm of breast (principal); Z85.3 Personal history of malignant neoplasm of breast; Z90.11 Acquired absence of right breast and nipple
CPT/HCPCS: 77063; 77067

== ENCOUNTER → 2022-05-24 | Outpatient (CLI) | payer MEDICARE, OTHER, SELFPAY ==
[2022-05-24 10:18] LABS: Mucous, Urine 0 SEEN /hpf (<or=2+); Red Blood Cells-Urine 0 SEEN /hpf (0-5); Squamous Epithelial Cells - UA 0 SEEN /hpf (5-10)
[2022-05-24 12:24] LABS: Vitamin D,25 Hydroxy 108.4 ng/mL
[2022-05-24 12:26] LABS: Color, Urine Yellow (Yellow); Glucose, Dipstick Normal (Normal); Ketone-Dipstick Negative (Negative); Leukocyte Esterase-Dipstick 500 /ul (Negative); Nitrite-Dipstick Negative (Negative); Occult Blood-Urine Negative /ul (Negative); Protein-Dipstick Negative (Negative); Urine Bilirubin Dipstick Negative (Negative); Urine Clarity Clear (Clear); Urine Urobilinogen Normal (Normal)
[2022-05-24 12:31] LABS: ALB/GLOB Ratio 1.1 RATIO (0.9-2.4); Albumin, Serum 3.8 g/dL (3.2-5.0); BUN 17 mg/dL (7-18); BUN/Creat Ratio 18.1 RATIO (10-20); Creatinine, Serum 0.94 mg/dL (0.55-1.02); EST Glomerular Filtration Rate 62 mL/min (>60); Est Glom Filt Rate - Afr Amer 75 mL/min (>60); Globulin 3.4 g/dL (2.2-4.2); Glucose 94 mg/dL (74-106); Protein, Total 7.2 g/dL (6.4-8.2)
[2022-05-24 12:32] LABS: AST(SGOT) 29 U/L (15-37); Alanine Aminotransfer ALT/SGPT 30 U/L (13-56); Alkaline Phosphatase 99 U/L (45-117); Anion Gap 6 (5-15); Calcium,Total 9.3 mg/dL (8.5-10.1); Chloride 106 mmol/L (98-107); Cholesterol 256 mg/dL (200); High Density Lipoprotein 74 mg/dL; Potassium 4.4 mmol/L (3.5-5.1); Sodium Level 141 mmol/L (136-145); T4 Free Direct 1.19 ng/dL (0.76-1.46); Triglycerides 99 mg/dL; Very Low Density Lipoprotein 20 mg/dL (5-40)
[2022-05-24 12:33] LABS: Microalbumin,Random Urine 16.5 mg/L (NO RANGE EST.); Microalbumin:Creatinine Ratio 107.8 mg/g CRE (<30 mg/g CRE)
[2022-05-24 12:44] LABS: Bacteria 1+ /hpf (None Seen); White Blood Cells 50-100 SEEN /hpf (0-5)
== END | disposition home or self-care (01) ==
PROVIDERS: PCP Family Medicine; Referring Provider Family Medicine; Visit Provider Family Medicine
DX: N18.31 Chronic kidney disease, stage 3a (principal); E03.9 Hypothyroidism, unspecified; E78.00 Pure hypercholesterolemia, unspecified
CPT/HCPCS: 36415; 80053; 80061; 81001; 82043; 82306; 82570; 84439; 84443; 87077; 87086; 87088; 87186

== ENCOUNTER → 2022-11-15 | Outpatient (CLI) | payer MEDICARE, OTHER, SELFPAY ==
--- NOTE | 2022-11-15 09:04 | BI_ITS ---
MAMMOGRAPHY - UNILATERAL SCREENING: LEFT BREAST REASON FOR EXAM: Female, 77 years old. Routine annual screening examination (unilateral). PERTINENT HISTORY: Personal history of breast cancer. Prior right mastectomy. TECHNIQUE: Digital unilateral breast waleska (3D mammographic acquisition) in the CC and MLO projections. 2-D mediolateral oblique (MLO) and craniocaudad (CC) views of both breasts were obtained. CAD: Full Field Digital Mammography with Computer Added Detection was performed. COMPARISON: Comparison is made with prior study dated 11/12/2021 and 11/10/2020. FINDINGS: Breast Composition: There are scattered areas of fibroglandular density. There are no dominant masses or suspicious calcifications. No other significant abnormalities are identified. There has been no significant change since the prior study. BI/SCREEN MAMM (CAD) W/WALESKA UNI L IMPRESSION: Stable unilateral screening mammogram. Yearly follow-up mammogram recommended. (A) ASSESSMENT CATEGORY: BIRADS Category 1: Negative. A letter regarding these results will be sent to the patient by the facility within 30 days. Approximately 10% of breast cancers are not detected by mammography. A normal mammogram should not delay biopsy of a clinically suspicious abnormality. [id number] Electronically Signed: Jaya Durand MD at 13:09 EST ,
== END | disposition home or self-care (01) ==
LOC: OPBI 09:04
PROVIDERS: PCP Family Medicine; Referring Provider Family Medicine; Visit Provider Family Medicine
DX: Z12.31 Encounter for screening mammogram for malignant neoplasm of breast (principal)
CPT/HCPCS: 77063; 77067

== ENCOUNTER → 2023-06-27 | Outpatient (CLI) | payer MEDICARE, OTHER, SELFPAY ==
[2023-06-27 08:33] LABS: Absolute Lymphocyte Count 1.06 X10^3/uL (0.83-4.51); Absolute Neutrophil Count 3.7 X10^3/uL (2.0-7.7); Basophil# 0.03 X10^3/uL; Basophil% 0.5 % (0-1); Eosinophil# 0.26 X10^3/uL; Eosinophils% 4.6 % (0-5); Hematocrit 42.4 % (37-47); Hemoglobin 13.6 g/dL (12.0-15.0); Lymphocyte # 1.06 X10^3/ul (0.83-4.51); Lymphocyte % 18.9 % (19-41); Mean Corp Hgb Conc 32.1 g/dL (32-36); Mean Corpuscular Hgb 32.8 pg (27.0-32.0); Mean Corpuscular Volume 102.2 fL (81-99); Mean Platelet Vol. 9.4 fl (6.2-12.0); Monocyte# 0.51 X10^3/uL; Monocyte% 9.1 % (0-10); NRBC Flagged by Analyzer 0 % (0-5); Neutrophil # 3.74 X10^3/uL (2.7-7.7); Neutrophil % 66.7 % (47-70); Platelet Count 222 K/mm3 (150-450); RBC Distribution Width CV 12.3 % (11.6-14.6); RBC Distribution Width SD 46.5 fl (35.1-43.9); Red Blood Count 4.15 M/mm3 (4.2-5.4); White Blood Count 5.6 K/mm3 (4.4-11.0)
[2023-06-27 08:59] LABS: Microalbumin:Creatinine Ratio 193.3 mg/g CRE (<30 mg/g CRE)
[2023-06-27 09:18] LABS: ALB/GLOB Ratio 1.3 RATIO (0.9-2.4); AST(SGOT) 27 U/L (15-37); Alanine Aminotransfer ALT/SGPT 37 U/L (13-56); Albumin, Serum 3.7 g/dL (3.2-5.0); Alkaline Phosphatase 90 U/L (45-117); Anion Gap 6 (5-15); BUN 16 mg/dL (7-18); BUN/Creat Ratio 15.8 RATIO (10-20); Calcium,Total 8.3 mg/dL (8.5-10.1); Chloride 109 mmol/L (98-107); Creatinine, Serum 1.01 mg/dL (0.55-1.02); EST Glomerular Filtration Rate 56 mL/min (>60); Est Glom Filt Rate - Afr Amer 68 mL/min (>60); Globulin 2.8 g/dL (2.2-4.2); Glucose 102 mg/dL (74-106); Potassium 3.7 mmol/L (3.5-5.1); Protein, Total 6.5 g/dL (6.4-8.2); Sodium Level 141 mmol/L (136-145); Thyroid Stim Hormone (TSH) 4.01 uIU/mL (0.358-3.74)
== END | disposition home or self-care (01) ==
LOC: LAB 07:39
PROVIDERS: PCP Family Medicine; Referring Provider Family Medicine; Visit Provider Family Medicine
DX: I12.9 Hypertensive chronic kidney disease with stage 1 through stage 4 chronic kidney disease, or unspecified chronic kidney disease (principal); N18.2 Chronic kidney disease, stage 2 (mild); R79.89 Other specified abnormal findings of blood chemistry; E03.9 Hypothyroidism, unspecified
CPT/HCPCS: 36415; 80053; 82043; 82570; 84443; 85025

== ENCOUNTER → 2023-07-13 | Outpatient (CLI) | payer MEDICARE, OTHER, SELFPAY ==
--- NOTE | 2023-07-13 10:39 | ECHOCS_ITS ---
Reason For Study: AORTIC STENOSIS Procedure This was a 2D Doppler, Color Flow transthoracic echocardiogram. Contrast injection was performed. Exam performed in department. Left Ventricle Normal LV size. Left ventricular systolic function is normal. The estimated ejection fraction is 65 %. Stage 1 diastolic dysfunction. No regional wall motion abnormalities noted. Right Ventricle Normal RV size. Normal systolic function. Atria Normal left atrium. Normal right atrium. Tricuspid Valve Normal tricuspid valve. Aortic Valve Trisinus/trileaflet aortic valve. Mild focal aortic valve calcification. Peak aortic valve gradient 20 mmHg. Mean aortic valve gradient 12 mmHg. Pulmonic Valve The pulmonic valve is not well visualized. Great Vessels Normal aortic root. The pulmonary artery is normal size. Normal inferior vena cava. Pericardium/Pleural No pericardial effusion. Medication 22 gauge I.V. with prn adaptor inserted into left arm. Diluted definity 3ml given slow IV push to enhance endocardial definition. MMode/2D Measurements & Calculations LVIDd: 4.5 cm IVSd: 1.1 cm LVOT diam: 2.0 cm LVIDs: 2.7 cm LVPWd: 0.74 cm LVOT area: 3.2 cm2 RVDd: 2.8 cm FS: 40.6 % Ao root diam: 3.4 cm LAV(MOD-bp): 35.6 ml LVAd ap4: 23.7 cm2 LAV(MOD-bp) Indexed: 20.7 ml/m2 LVLd ap4: 7.0 cm LAV(MOD-sp2): 33.1 ml EDV(MOD-sp4): 65.1 ml LAV(MOD-sp4): 37.0 ml EDV(sp4-el): 67.9 ml LVAs ap4: 12.3 cm2 LVLs ap4: 5.5 cm ESV(MOD-sp4): 22.4 ml ESV(sp4-el): 23.3 ml EF(MOD-sp4): 65.5 % EF(sp4-el): 65.7 % LVAd ap2: 23.3 cm2 SV(MOD-sp4): 42.7 ml SV(MOD-sp2): 43.2 ml LVLd ap2: 7.3 cm EDV(MOD-sp2): 61.4 ml EDV(sp2-el): 63.1 ml LVAs ap2: 11.0 cm2 LVLs ap2: 5.4 cm ESV(MOD-sp2): 18.3 ml ESV(sp2-el): 18.9 ml EF(MOD-sp2): 70.2 % SV(sp4-el): 44.6 ml LA dimension(2D): 4.3 cm LA A4 area: 15.6 cm2 RA A4 area: 13.0 cm2 TAPSE: 1.9 cm Time Measurements MV dec time: 0.26 sec Doppler Measurements & Calculations MV E max angel: 68.9 cm/sec Lat Peak E' Angel: 7.2 cm/sec Med Peak E' Angel: 5.7 cm/sec MV A max angel: 106.0 cm/sec E/E' lat: 9.6 E/E' med: 12.1 MV E/A: 0.65 Ao V2 max: 221.4 cm/sec LV V1 max: 78.8 cm/sec MV dec slope: 267.7 cm/sec2 Ao max P.6 mmHg LV V1 max P.5 mmHg Ao V2 mean: 163.8 cm/sec LV V1 mean P.2 mmHg Ao mean P.7 mmHg LV V1 mean: 51.3 cm/sec Ao V2 VTI: 54.0 cm LV V1 VTI: 18.0 cm AV (velocity ratio): 0.33 CINDY(I,D): 1.1 cm2 CINDY(V,D): 1.1 cm2 SV(LVOT): 57.4 ml PA V2 max: 79.1 cm/sec PA max PG (full): 1.6 mmHg ECHO/Echo Complete W/ Contrast Interpretation Summary Normal LV size. Left ventricular systolic function is normal. The estimated ejection fraction is 65 %. Stage 1 diastolic dysfunction. Mild focal aortic valve calcification. Mean aortic valve gradient 12 mmHg. Ordering Physician: Cesar Sanchez Referring Physician: Cesar Sanchez Performed By: Linda Reese RDCS
== END | disposition home or self-care (01) ==
LOC: CVS 10:37
PROVIDERS: PCP Family Medicine; Referring Provider Family Medicine; Visit Provider Family Medicine
DX: I35.0 Nonrheumatic aortic (valve) stenosis (principal)
CPT/HCPCS: 93306; Q9957; A4216; C8929

== ENCOUNTER → 2024-02-15 | Outpatient (CLI) | payer MEDICARE, OTHER, SELFPAY ==
--- NOTE | 2024-02-15 07:42 | BI_ITS ---
MAMMOGRAPHY - UNILATERAL SCREENING: LEFT BREAST REASON FOR EXAM: Female, 78 years old. Routine annual screening examination (unilateral). PERTINENT HISTORY: Non-contributory. TECHNIQUE: Digital examination. Mediolateral oblique (MLO) and craniocaudad (CC) views of the breast were obtained. CAD: CAD was performed on this study. COMPARISON: 11/15/2022 FINDINGS: Breast Composition: There are scattered areas of fibroglandular density. There are no dominant masses or suspicious calcifications. No other significant abnormalities are identified. BI/SCREEN MAMM (CAD) W/WALESKA UNI L IMPRESSION: Stable left screening mammogram. ASSESSMENT CATEGORY: BIRADS Category 1: Negative. A letter regarding these results will be sent to the patient by the facility within 30 days. FOLLOW UP RECOMMENDATION: Yearly follow up mammogram recommended. (A) [id number] Approximately 10% of breast cancers are not detected by mammography. A normal mammogram should not delay biopsy of a clinically suspicious abnormality. [id number] Electronically Signed: Kennedy Reynoso MD at 9:51 EDT ,
== END | disposition home or self-care (01) ==
LOC: OPBI 07:41
PROVIDERS: PCP Family Medicine; Referring Provider Family Medicine; Visit Provider Family Medicine
DX: Z12.31 Encounter for screening mammogram for malignant neoplasm of breast (principal); Z85.3 Personal history of malignant neoplasm of breast
CPT/HCPCS: 77063; 77067

== ENCOUNTER 2024-03-09 16:47 | Emergency (ER) | payer MEDICARE, OTHER, SELFPAY ==
[2024-03-09 16:49] VITALS: BP 144/77; PULSE 61; RESP 18; TEMP 36.1; O2SAT 92; BMI 25.8
--- NOTE | 2024-03-09 16:59 | CT_ITS ---
We are attempting to reach an attending provider to discuss findings. An addendum with communication details will be sent when the communication is complete. INDICATION: trauma EXAMINATION: CT BRAIN - CT Head or Brain W/O Contrast Injection TECHNIQUE: Multiple axial images were obtained of the head without intravenous contrast. A radiation dose optimization technique was used for this scan. IV Contrast dosage and agent: None. COMPARISON: None FINDINGS: BRAIN PARENCHYMA: Right posterior parietal 3 mm subdural hematoma with minimal effacement of adjacent sulci. No midline shift. No evidence of acute infarct. No intracranial mass or mass effect. Mild periventricular and subcortical white matter hypodense chronic small vessel white matter ischemic change. There is preservation of the peace/white matter interface. Posterior fossa structures are unremarkable. Carotid and vertebral atherosclerosis. CSF SPACES: Cerebral volume appropriate for age. No hydrocephalus. Basal cisterns are patent. CALVARIUM, SKULL BASE, PARANASAL SINUSES AND MASTOID AIR CELLS: Large right parietal subcutaneous scalp hematoma spanning approximately 1.8 x 6.8 cm. Small left posterior lateral frontal temporal scalp hematoma and laceration. No evidence of calvarial fracture. Mild scattered paransal sinus mucoperisteal thickening. Mastoid air cells are clear. ORBITS: Both globes, extraocular muscles, optic nerves and retrobulbar fat appear unremarkable. ASPECTS Score for Acute Strokes: 10 CT/Brain/Head without Contrast IMPRESSION: Right parietal subdural hematoma 3 mm in thickness with minimal localized mass effect Right parietal superficial scalp hematoma without evidence of underlying fracture. Also left frontotemporal small scalp laceration and hematoma. Mild scattered sinus disease. Electronically Signed: Jigar Torres MD at 17:57 EDT ,
--- NOTE | 2024-03-09 16:59 | CT_ITS ---
INDICATION: trauma EXAMINATION: CT CERVICAL SPINE - CT Spine Cervical W/O Contrast Injection TECHNIQUE: Helically acquired images were obtained of the cervical spine. 2D reformatted images were reviewed. A radiation dose optimization technique was used for this scan. IV Contrast dosage and agent: None. COMPARISON: None. FINDINGS: VERTEBRAE: No fracture or acute compression deformity. No discrete lytic or blastic abnormality. Normal alignment. Normal craniocervical junction and cervicothoracic junction. Mid cervical anterolateral bridging osteophytes. Bulky C4-C5 posterior bridging osteophyte causing moderate spinal stenosis. Diffuse facet arthropathy most prominent left C3-C4 and right C4-C5 and C7-T1. DISCS and SPINAL CANAL: Mild diffuse disc height loss most prominent in the lower cervical spine with C5-C6 bulky posterior bridging osteophyte causing moderate spinal canal and neural foraminal stenosis and C6-C7 small posterior disc osteophyte complex causing mild spinal canal and neural foraminal narrowing.. No critical stenosis. NECK SOFT TISSUES: No prevertebral soft tissue swelling. There is no cervical adenopathy. LUNG APICES: Mild bilateral apical interstitial edema.. CT/Spine Cervical without Contras IMPRESSION: No evidence of acute cervical spinal fracture or spondylolisthesis. Moderate spondylosis with bulky posterior bridging osteophytes at C5-C6 causing up to moderate spinal canal and neural foraminal stenosis. Electronically Signed: Jigar Torres MD at 18:07 EDT ,
--- NOTE | 2024-03-09 17:03 | EDS_ITS ---
HPI History of Present Illness Chief Complaint: Syncope Informant: patient and EMS Narrative Narrative: Patient presents after a fall with head injury. EMS report states the patient had gotten up from a nap, taken a few steps, and then had a syncopal event falling to the floor. Patient does not remember what happened. She complains of a headache. She denies being on a blood thinner. [facility] Medical History Right bundle branch block (RBBB) GERD (gastroesophageal reflux disease) Cancer of right breast Hyperlipidemia Arthritis Essential (primary) hypertension Home Medications ?Medication ?Instructions ?Recorded ?Last Taken ?Type metoprolol tartrate 50 mg tablet 50 mg PO DAILY 05/27/16 05/27/16 History mksyojnd-bfqr-azac 8 mg-folic 400 1 ea PO DAILY 05/27/16 Unknown History mcg-K 50 mcg-lutein 300 mcg tablet omega-3 fatty acids 1,000 mg 1,000 mg PO DAILY 05/27/16 Unknown History capsule vitamin B complex-folic acid 0.4 0.4 mg PO DAILY 05/27/16 Unknown History mg tablet benzonatate 200 mg capsule 200 mg PO TID PRN cough #20 caps 03/16/18 Unknown Rx atorvastatin 40 mg tablet 40 mg PO QHS 06/03/20 Unknown History famotidine-Ca carb-mag hydrox 10 1 tab PO DAILY 06/03/20 Unknown History mg-800 mg-165 mg chewable tablet (Pepcid Complete) antiarthritic combination no.2 900 mg PO 06/04/20 Unknown History mg tablet (glucosamine-chondroitin) cholecalciferol (vitamin D3) 25 5,000 unit PO DAILY 06/10/21 Unknown History mcg (1,000 unit) tablet levothyroxine 25 mcg tablet 50 mcg PO DAILY 06/10/21 Unknown History Allergy/AdvReac Type Severity Reaction Status Date / Time bupropion HCl (From Zyban) Allergy Severe Hives Verified 03/09/24 16:49 bupropion (From Zyban) Allergy Hives Verified 03/09/24 16:49 shellfish derived Allergy hives Verified 03/09/24 16:49 acetaminophen (From Vicodin) AdvReac N/V Verified 03/09/24 16:49 hydrocodone (From Vicodin) AdvReac N/V Verified 03/09/24 16:49 hydromorphone AdvReac constipatio Verified 03/09/24 16:49 n Family History Brother , age 49 Cancer lung Surgical History History of breast reconstruction H/O section History of appendectomy History of mastectomy Social History Smoking Status: Former smoker quit date: 09/26/04 pack-years: 40 Tobacco: How many years used: 40 how long ago did patient quit smokin years ago second hand exposure: Yes alcohol intake: current alcohol intake frequency: 0-2 drinks per day Alcohol type: wine ROS ROS ED Constitutional Constitutional ED: Denies chills or fever(s) Eyes Eyes: Denies discharge from eye(s) ENT ENT ED: Denies discharge from eye(s), rhinorrhea or sore throat Cardiovascular Cardiovascular: Denies chest pain or palpitations Respiratory/Chest Respiratory/Chest: Denies cough or dyspnea Gastrointestinal Gastrointestinal: Denies abdominal pain, nausea or vomiting Musculoskeletal Musculoskeletal: Denies back pain, extremity pain or neck pain Integumentary Denies Abrasions or rash Neurologic Neurologic: Reports headache(s); Denies weakness Psychiatric Psychiatric: Denies anxiety or depression Allergic/Immunologic Allergic/Immunologic ED: Denies lip swelling or urticaria EXAM Physical Exam Const Vital Signs: 03/09/24 16:49 03/09/24 16:54 Temperature 96.9 F L Temperature Source Temporal Pulse Rate 61 Respiratory Rate 18 Respiratory Pattern Normal Blood Pressure 144/77 H Blood Pressure Mean 99 Pulse Ox 92 Oxygen Delivery Method Room Air Positive well nourished and well developed General Appearance ED: well developed HEENT Reports moist mucous membranes Eyes EOMs intact bilaterally Chest Wall inspection of chest normal and palpation of chest normal Resp normal respiratory effort and clear to auscultation bilaterally Cardio regular rate and regular rhythm GI non-tender Palpation: soft Extremity normal to inspection Neuro Neuro Narrative: Patient alert does not remember details of what happened. No focal neurologic deficit. Psych Mood & Affect: anxious and tearful MDM MDM MDM Narrative Medical decision making narrative: IV line established by EMS. Lab work will be sent. Patient sent for CT imaging of the head and C-spine. Lab Data Attestation: I reviewed the patient's lab results. Labs: Laboratory Results - last 24 hr 03/09/24 16:36 WBC 5.5 RBC 4.11 L Hgb 13.7 Hct 41.2 MCV 100.2 H MCH 33.3 H MCHC 33.3 RDW Std Deviation 46.7 H RDW Coeff of Toyin 12.5 Plt Count 228 MPV 9.3 Immature Gran % (Auto) 0.000 Neut % (Auto) 48.7 Lymph % (Auto) 31.5 [place] % (Auto) 14.3 H Eos % (Auto) 4.2 Baso % (Auto) 1.3 H Absolute Neuts (auto) 2.7 Absolute Lymphs (auto) 1.72 Nucleated RBC % 0 PT 14.2 INR 1.1 APTT 24.6 Sodium 142 Potassium 3.7 Chloride 107 Carbon Dioxide 22.0 Anion Gap 13 BUN 14 Creatinine 0.94 Estim Creat Clear Calc 48.54 Est GFR (MDRD) Af Amer 74 Est GFR (MDRD) Non-Af 61 BUN/Creatinine Ratio 14.8 Glucose 96 Calcium 9.1 Radiography Diagnostic Testing: Clinical Impression(s) from Imaging Studies Brain CT 03/09/24 16:59 IMPRESSION: Right parietal subdural hematoma 3 mm in thickness with minimal localized mass effect Right parietal superficial scalp hematoma without evidence of underlying fracture. Also left frontotemporal small scalp laceration and hematoma. Mild scattered sinus disease. Electronically Signed: Jigar Torres MD at 17:57 EDT Reading Location ID and State: [facility] / [place] Tel , Service support , Cervical Spine CT 03/09/24 16:59 IMPRESSION: No evidence of acute cervical spinal fracture or spondylolisthesis. Moderate spondylosis with bulky posterior bridging osteophytes at C5-C6 causing up to moderate spinal canal and neural foraminal stenosis. Electronically Signed: Jigar Torres MD at 18:07 EDT , Chest X-Ray 03/09/24 17:20 IMPRESSION: No radiographic evidence of acute cardiopulmonary disease. Electronically Signed: Jigar Torres MD at 17:58 EDT , EKG Initial EKG: Attestation: I personally reviewed and interpreted this EKG as follows: Interpretation: Sinus Rhythm (Sinus at 61 with right bundle branch block. No acute ischemia.) Treatment and Re-Evaluation :: CBC was a white count of 5.5 with a hemoglobin of 13.7. Chemistry studies unremarkable. Coags are normal. CT scan of the head reveals a right posterior parietal subdural hematoma 3 mm in thickness with minimal localized mass effect. Right parietal superficial scalp hematoma without evidence of underlying fracture is noted. There is also a left frontotemporal small scalp laceration and hematoma. CT the C-spine reveals no evidence of acute spinal fracture or spondylolisthesis. On repeat evaluation is now at bedside. He verifies that the patient had been napping in her chair. She stood up and looked at him, took a few steps, and then passed out falling backwards and striking her head. She does not remember any of the events. Patient is cleared from the c-collar. Test results are discussed with them. Patient will be transferred to a trauma center for further evaluation and observation. Discharge Plan Triage Chief Complaint: Syncope ED Provider: Alma Villanueva Dx/Rx/DC Orders Clinical Impression: Subdural hemorrhage, Hematoma of scalp, Fall, Syncope Prescriptions: No Action benzonatate 200 mg capsule 200 mg PO TID PRN (Reason: cough) Qty: 20 0RF glucosamine-chondroitin 900 mg tablet PO atorvastatin 40 mg tablet 40 mg PO QHS Pepcid Complete 10-800-165 mg tablet,chewable 1 tab PO DAILY levothyroxine 25 mcg tablet 50 mcg PO DAILY Patient Comments: TAKE 1 TABLET BY MOUTH DAILY omega-3 fatty acids 1,000 MG capsule 1,000 mg PO DAILY Patient Comments: supplement metoprolol tartrate 50 MG tablet 50 mg PO DAILY Patient Comments: heart/blood pressure vitamin B complex-folic acid 0.4 MG tablet 0.4 mg PO DAILY Patient Comments: supplement ulmmptxc-aik-jcar-FA-vit K-lut 1 EACH tablet 1 ea PO DAILY cholecalciferol (vitamin D3) 25 mcg (1,000 unit) tablet 5,000 unit PO DAILY Patient Comments: supplement Primary Care Provider: Cesar Sanchez Referrals: Cesar Sanchez MD [Primary Care Provider] - Print Language: Bermudian Disposition Disposition: Acute Care Hospital Discharge Location: [facility]
[2024-03-09 17:15] LABS: Absolute Lymphocyte Count 1.72 X10^3/uL (0.83-4.51); Absolute Neutrophil Count 2.7 X10^3/uL (2.0-7.7); Basophil# 0.07 X10^3/uL; Basophil% 1.3 % (0-1); Eosinophil# 0.23 X10^3/uL; Eosinophils% 4.2 % (0-5); Hematocrit 41.2 % (37-47); Hemoglobin 13.7 g/dL (12.0-15.0); Lymphocyte # 1.72 X10^3/ul (0.83-4.51); Lymphocyte % 31.5 % (19-41); Mean Corp Hgb Conc 33.3 g/dL (32-36); Mean Corpuscular Hgb 33.3 pg (27.0-32.0); Mean Corpuscular Volume 100.2 fL (81-99); Mean Platelet Vol. 9.3 fl (6.2-12.0); Monocyte# 0.78 X10^3/uL; Monocyte% 14.3 % (0-10); NRBC Flagged by Analyzer 0 % (0-5); Neutrophil # 2.66 X10^3/uL (2.7-7.7); Neutrophil % 48.7 % (47-70); Platelet Count 228 K/mm3 (150-450); RBC Distribution Width CV 12.5 % (11.6-14.6); RBC Distribution Width SD 46.7 fl (35.1-43.9); Red Blood Count 4.11 M/mm3 (4.2-5.4); White Blood Count 5.5 K/mm3 (4.4-11.0)
[2024-03-09] MEDS: Lidocaine 1% /Epi 1:100 (20ml) 20 ML Vial INFILT (17:20)
--- NOTE | 2024-03-09 17:20 | RAD_ITS ---
INDICATION: fall EXAMINATION/TECHNIQUE: X-RAY - XR Chest 1 View COMPARISON: None. FINDINGS: LINES/DEVICES: None. LUNGS: No consolidation, edema or effusion. No pneumothorax. MEDIASTINUM AND CARDIOVASCULAR STRUCTURES: Cardiac silhouette not enlarged. Aortic atherosclerosis. BONES AND SOFT TISSUES: Unremarkable. RAD/Chest 1 View (Portable) IMPRESSION: No radiographic evidence of acute cardiopulmonary disease. Electronically Signed: Jigar Torres MD at 17:58 EDT ,
[2024-03-09 17:25] LABS: International Normalized Ratio 1.1; Partial Thromboplast Time 24.6 Seconds (24.1-36.2); Prothrombin Time (Protime)PT. 14.2 SECONDS (11.7-14.9)
[2024-03-09 17:37] LABS: Anion Gap 13 (5-15); BUN 14 mg/dL (7-18); BUN/Creat Ratio 14.8 RATIO (10-20); Calcium,Total 9.1 mg/dL (8.5-10.1); Chloride 107 mmol/L (98-107); Creatinine, Serum 0.94 mg/dL (0.55-1.02); EST Glomerular Filtration Rate 61 mL/min (>60); Est Glom Filt Rate - Afr Amer 74 mL/min (>60); Estimated Creatinine Clearance 48.54 ml/min; Glucose 96 mg/dL (74-106); Potassium 3.7 mmol/L (3.5-5.1); Sodium Level 142 mmol/L (136-145)
--- NOTE | 2024-03-09 18:20 | EKG12_ITS ---
Test Reason : TRANSFER EKG Blood Pressure : / mmHG Vent. Rate : 061 BPM Atrial Rate : 061 BPM P-R Int : 182 ms QRS Dur : 120 ms QT Int : 452 ms P-R-T Axes : 010 059 039 degrees QTc Int : 455 ms Normal sinus rhythm Right bundle branch block Septal infarct . age undetermined Abnormal ECG Confirmed by ASHANTI GARVEY, KUSH ([id number]), restaurant expeditor JENNIFER AGUSTIN ([id number]) on 03/12/2024 9:46:37 AM Referred By: Confirmed By:KIANA BURRELL MD
--- NOTE | 2024-03-09 18:20 | NURSING ---
CALLED [facility] FOR TRANSFER.
[2024-03-09 18:45] VITALS: BP 152/78; PULSE 64; O2SAT 92
[2024-03-09 19:07] VITALS: BP 139/68; PULSE 64; RESP 20; TEMP 36.4; O2SAT 92
== END 2024-03-09 19:12 | disposition short-term general hospital (02) ==
PROVIDERS: Emergency Provider Emergency Medicine; PCP Family Medicine; Visit Provider Emergency Medicine
DX: I62.00 Nontraumatic subdural hemorrhage, unspecified (principal); Z87.891 Personal history of nicotine dependence; R55 Syncope and collapse; W18.30XA Fall on same level, unspecified, initial encounter; E78.5 Hyperlipidemia, unspecified; I10 Essential (primary) hypertension; Z79.899 Other long term (current) drug therapy; M19.90 Unspecified osteoarthritis, unspecified site; K21.9 Gastro-esophageal reflux disease without esophagitis; Z85.3 Personal history of malignant neoplasm of breast; Z90.49 Acquired absence of other specified parts of digestive tract; Z90.10 Acquired absence of unspecified breast and nipple
CPT/HCPCS: 70450; 71045; 72125; 80048; 85025; 85610; 85730; 93005; 99284; A4216

== ENCOUNTER → 2024-03-14 | Outpatient (CLI) | payer MEDICARE, OTHER, SELFPAY ==
[2024-03-14 08:38] LABS: ALB/GLOB Ratio 0.9 RATIO (0.9-2.4); AST(SGOT) 22 U/L (15-37); Alanine Aminotransfer ALT/SGPT 27 U/L (13-56); Albumin, Serum 3.3 g/dL (3.2-5.0); Alkaline Phosphatase 89 U/L (45-117); Anion Gap 3 (5-15); BUN 13 mg/dL (7-18); BUN/Creat Ratio 12.3 RATIO (10-20); Calcium,Total 9.1 mg/dL (8.5-10.1); Chloride 106 mmol/L (98-107); Cholesterol 225 mg/dL (200); Creatinine, Serum 1.06 mg/dL (0.55-1.02); EST Glomerular Filtration Rate 53 mL/min (>60); Est Glom Filt Rate - Afr Amer 64 mL/min (>60); Globulin 3.5 g/dL (2.2-4.2); Glucose 105 mg/dL (74-106); High Density Lipoprotein 62 mg/dL; Potassium 4.1 mmol/L (3.5-5.1); Protein, Total 6.8 g/dL (6.4-8.2); Sodium Level 137 mmol/L (136-145); T4 Free Direct 1.01 ng/dL (0.76-1.46); Thyroid Stim Hormone (TSH) 7.57 uIU/mL (0.358-3.74); Triglycerides 146 mg/dL; Very Low Density Lipoprotein 29 mg/dL (5-40)
[2024-03-14 08:50] LABS: Microalbumin,Random Urine 12.1 mg/L (NO RANGE EST.); Microalbumin:Creatinine Ratio 21.5 mg/g CRE (<30 mg/g CRE)
== END | disposition home or self-care (01) ==
LOC: LAB 07:17
PROVIDERS: PCP Family Medicine; Referring Provider Internal Medicine Cardiovascular Disease; Visit Provider Family Medicine
DX: I10 Essential (primary) hypertension (principal); E78.00 Pure hypercholesterolemia, unspecified; E03.9 Hypothyroidism, unspecified
CPT/HCPCS: 36415; 80053; 80061; 82043; 82570; 84439; 84443

== ENCOUNTER 2024-03-20 10:08 | Day surgery (SDC) | payer MEDICARE, OTHER, SELFPAY ==
[2024-03-19 10:33] VITALS: BMI 25.0
--- NOTE | 2024-03-20 12:18 | CL.IE_ITS ---
Patient: BERRY BLUM Study Date: 03/20/2024 Performing: Kameron Gamez MD : 1945 Age: 78 Gender: female PROCEDURES PERFORMED [id number])INSERTION OF LOOP RECORDER INDICATIONS Syncope PROCEDURE DETAILS The patient was brought to the Catheterization Lab in the postabsorptive nonsedated state. Informed consent was obtained prior to the procedure. Local anesthetic was given subcutaneously to the left subclavian region with Lidocaine 2%. Incision was made to the left upper chest. ICM Loop Recorder was inserted. Instrument, sponge, and needle counts were noted to be normal. The patient tolerated the procedure well. Estimated Blood Loss: < 10 mls IMPLANTED / EX-PLANTED DEVICES IMPLANTED DEVICE(S): ICM Loop Recorder - Physiological Chemist: [employer], Model # JOT DX , Serial # [id number] DEVICE PARAMETERS CONCLUSIONS / RECOMMENDATIONS Device Conclusions: Successful implantation of a patient activated loop recorder. Device Recommendations: Follow up with Primary Care Physician PROCEDURE MEDICATIONS Versed 1 mg IV Oxygen: 2 L/min via nasal cannula Antibiotic given in appropriate timeframe. Ancef 2 Gm IV @ 03/20/2024 11:59:08 Signed By Kameron Gamez MD On 03/20/2024 12:17:49 Kameron Gamez MD
== END 2024-03-20 13:20 | disposition home or self-care (01) ==
PROVIDERS: PCP Family Medicine; Visit Provider Internal Medicine Cardiovascular Disease
DX: Z45.09 Encounter for adjustment and management of other cardiac device (principal); R55 Syncope and collapse; I10 Essential (primary) hypertension; Z79.899 Other long term (current) drug therapy; Z79.890 Hormone replacement therapy; K21.9 Gastro-esophageal reflux disease without esophagitis; E78.5 Hyperlipidemia, unspecified; Z79.891 Long term (current) use of opiate analgesic; I45.10 Unspecified right bundle-branch block; I35.0 Nonrheumatic aortic (valve) stenosis
CPT/HCPCS: 33285; 99152; J7040

== ENCOUNTER → 2024-04-02 | Outpatient (CLI) | payer MEDICARE, OTHER, SELFPAY ==
--- NOTE | 2024-04-02 12:41 | ECHOCS_ITS ---
Reason For Study: SYNCOPE Procedure This was a 2D Doppler, Color Flow transthoracic echocardiogram. The study was technically difficult. Contrast injection was performed. Exam performed in department. Left Ventricle Normal LV size. Left ventricular systolic function is normal. The left ventricular ejection fraction is 55 %. Stage 1 diastolic dysfunction. No regional wall motion abnormalities noted. Right Ventricle Normal RV size. Normal systolic function. Atria Normal left atrium. Normal right atrium. Mitral Valve Normal mitral valve. Tricuspid Valve Normal tricuspid valve. Aortic Valve Mild focal aortic valve calcification. Peak aortic valve gradient 27 mmHg. Mean aortic valve gradient 17 mmHg. Mild aortic stenosis. Pulmonic Valve Normal pulmonic valve. Great Vessels Normal aortic root. The pulmonary artery is normal size. Normal inferior vena cava. Pericardium/Pleural No pericardial effusion. Medication 22 gauge I.V. with prn adaptor inserted into left arm. Diluted definity 2ml given slow IV push to enhance endocardial definition. MMode/2D Measurements & Calculations LVIDd: 4.3 cm IVSd: 1.2 cm LVOT diam: 2.0 cm LVIDs: 2.2 cm LVPWd: 0.94 cm RVDd: 3.8 cm FS: 48.2 % LVOT area: 3.2 cm2 Ao root diam: 3.2 cm LAV(MOD-bp): 37.1 ml LVAd ap4: 24.8 cm2 LAV(MOD-bp) Indexed: 21.4 ml/m2 LVLd ap4: 7.8 cm LAV(MOD-sp2): 41.5 ml EDV(MOD-sp4): 63.6 ml LAV(MOD-sp4): 31.7 ml EDV(sp4-el): 66.9 ml LVAs ap4: 15.5 cm2 LVLs ap4: 6.6 cm ESV(MOD-sp4): 30.0 ml ESV(sp4-el): 30.9 ml EF(MOD-sp4): 52.8 % EF(sp4-el): 53.7 % LVAd ap2: 23.2 cm2 SV(MOD-sp4): 33.6 ml SV(MOD-sp2): 38.7 ml LVLd ap2: 6.9 cm EDV(MOD-sp2): 62.9 ml EDV(sp2-el): 66.6 ml LVAs ap2: 13.2 cm2 LVLs ap2: 6.1 cm ESV(MOD-sp2): 24.2 ml ESV(sp2-el): 24.4 ml EF(MOD-sp2): 61.5 % SV(sp4-el): 35.9 ml LA dimension(2D): 4.1 cm LA A4 area: 14.0 cm2 RA A4 area: 10.4 cm2 TAPSE: 1.8 cm Time Measurements MV dec time: 0.26 sec Doppler Measurements & Calculations MV E max angel: 71.1 cm/sec Lat Peak E' Angel: 7.3 cm/sec Med Peak E' Angel: 6.3 cm/sec MV A max angel: 103.4 cm/sec E/E' lat: 9.7 E/E' med: 11.3 MV E/A: 0.69 Ao V2 max: 260.4 cm/sec LV V1 max: 105.3 cm/sec MV dec slope: 270.4 cm/sec2 Ao max P.1 mmHg LV V1 max P.4 mmHg Ao V2 mean: 199.7 cm/sec LV V1 mean P.8 mmHg Ao mean P.0 mmHg LV V1 mean: 81.4 cm/sec Ao V2 VTI: 59.3 cm LV V1 VTI: 22.8 cm AV (velocity ratio): 0.38 CINDY(I,D): 1.2 cm2 CINDY(V,D): 1.3 cm2 SV(LVOT): 73.2 ml PA V2 max: 76.9 cm/sec PA max PG (full): 0.89 mmHg ECHO/Echo Complete W/ Contrast Interpretation Summary Normal LV size. Left ventricular systolic function is normal. The left ventricular ejection fraction is 55 %. Stage 1 diastolic dysfunction. Contrast injection was performed. Ordering Physician: Kameron Gamez Referring Physician: Cesar Sanchez MD Performed By: Linda Daley RDCS
== END | disposition home or self-care (01) ==
LOC: CVS 12:38
PROVIDERS: PCP Family Medicine; Referring Provider Internal Medicine Cardiovascular Disease; Visit Provider Internal Medicine Cardiovascular Disease
DX: I35.0 Nonrheumatic aortic (valve) stenosis (principal)
CPT/HCPCS: 93306; Q9957; A4216; C8929

== ENCOUNTER → 2024-08-06 | Outpatient (CLI) | payer MEDICARE, OTHER, SELFPAY ==
[2024-08-06 10:12] LABS: Absolute Lymphocyte Count 1.24 X10^3/uL (0.83-4.51); Absolute Neutrophil Count 3.4 X10^3/uL (2.0-7.7); Basophil# 0.05 X10^3/uL; Basophil% 0.9 % (0-1); Eosinophil# 0.18 X10^3/uL; Eosinophils% 3.3 % (0-5); Hematocrit 44.6 % (37-47); Lymphocyte # 1.24 X10^3/ul (0.83-4.51); Lymphocyte % 22.9 % (19-41); Mean Corp Hgb Conc 31.4 g/dL (32-36); Mean Corpuscular Hgb 31.3 pg (27.0-32.0); Mean Corpuscular Volume 99.8 fL (81-99); Mean Platelet Vol. 9.8 fl (6.2-12.0); Monocyte# 0.56 X10^3/uL; Monocyte% 10.4 % (0-10); NRBC Flagged by Analyzer 0 % (0-5); Neutrophil # 3.35 X10^3/uL (2.7-7.7); Neutrophil % 61.9 % (47-70); Platelet Count 243 K/mm3 (150-450); RBC Distribution Width CV 12.8 % (11.6-14.6); RBC Distribution Width SD 47.2 fl (35.1-43.9); Red Blood Count 4.47 M/mm3 (4.2-5.4); White Blood Count 5.4 K/mm3 (4.4-11.0)
[2024-08-06 10:36] LABS: ALB/GLOB Ratio 1.1 RATIO (0.9-2.4); AST(SGOT) 31 U/L (15-37); Alanine Aminotransfer ALT/SGPT 41 U/L (13-56); Albumin, Serum 3.7 g/dL (3.2-5.0); Alkaline Phosphatase 91 U/L (45-117); Anion Gap 8 (5-15); BUN 16 mg/dL (7-18); BUN/Creat Ratio 15.2 RATIO (10-20); Calcium,Total 9.2 mg/dL (8.5-10.1); Chloride 105 mmol/L (98-107); Creatinine, Serum 1.05 mg/dL (0.55-1.02); EST Glomerular Filtration Rate 54 mL/min (>60); Est Glom Filt Rate - Afr Amer 65 mL/min (>60); Globulin 3.3 g/dL (2.2-4.2); Glucose 99 mg/dL (74-106); Potassium 4.1 mmol/L (3.5-5.1); Sodium Level 139 mmol/L (136-145); T4 Free Direct 0.96 ng/dL (0.76-1.46)
== END | disposition home or self-care (01) ==
LOC: MFPLAB 08:35
PROVIDERS: PCP Family Medicine; Visit Provider Family Medicine
DX: I12.9 Hypertensive chronic kidney disease with stage 1 through stage 4 chronic kidney disease, or unspecified chronic kidney disease (principal); N18.2 Chronic kidney disease, stage 2 (mild); E03.9 Hypothyroidism, unspecified
CPT/HCPCS: 36415; 80053; 84439; 84443; 85025

== ENCOUNTER → 2025-02-05 | Outpatient (CLI) | payer MEDICARE, OTHER, SELFPAY ==
[2025-02-05 07:30] LABS: Mucous, Urine 0 SEEN /hpf (<or=2+)
[2025-02-05 07:42] LABS: Color, Urine Yellow (Yellow); Glucose, Dipstick Normal (Normal); Ketone-Dipstick Negative (Negative); Leukocyte Esterase-Dipstick 500 /ul (Negative); Nitrite-Dipstick Positive (Negative); Occult Blood-Urine 50 /ul (Negative); Protein-Dipstick 30 mg/dl (Negative); Urine Bilirubin Dipstick Negative (Negative); Urine Clarity Cloudy (Clear); Urine Urobilinogen Normal (Normal); Urine pH 6.5 (5.0 - 8.0)
[2025-02-05 07:50] LABS: Bacteria 3+ /hpf (None Seen); Red Blood Cells-Urine 0-5 SEEN /hpf (0-5); Squamous Epithelial Cells - UA 0-5 SEEN /hpf (5-10); White Blood Cells 50-100 SEEN /hpf (0-5)
[2025-02-05 08:24] LABS: ALB/GLOB Ratio 1.8 RATIO (0.9-2.4); AST(SGOT) 27 U/L (<=31); Alanine Aminotransfer ALT/SGPT 23 U/L (<=34); Albumin, Serum 4.2 g/dL (3.4-4.8); Alkaline Phosphatase 80 U/L (35-104); Anion Gap 11 (5-15); BUN 17 mg/dL (4-19); BUN/Creat Ratio 15.8 RATIO (10-20); Calcium,Total 9.2 mg/dL (7.6-11.0); Carbon Dioxide 23.9 mmol/L (21.0-32.0); Chloride 106 mmol/L (98-108); Cholesterol 246 mg/dL (<=200); Creatinine, Serum 1.06 mg/dL (0.70-1.20); EST Glomerular Filtration Rate 53 (>60); Globulin 2.4 g/dL (2.2-4.2); Glucose 96 mg/dL (70-99); High Density Lipoprotein 65 mg/dL; Low Density Lipoprotein Calc. 156 mg/dL; Potassium 4.2 mmol/L (3.3-5.1); Protein, Total 6.6 g/dL (5.9-8.4); Sodium Level 141 mmol/L (133-145); Thyroid Stim Hormone (TSH) 0.902 uIU/mL (0.300-4.200); Total Bilirubin 0.72 mg/dL (0.00-1.30); Triglycerides 121 mg/dL; Very Low Density Lipoprotein 24 mg/dL (5-40); cholesterol:hdl ratio screen 3.76
[2025-02-05 08:45] LABS: Microalbumin,Random Urine 22.4 mg/L (NO RANGE EST.)
== END | disposition home or self-care (01) ==
LOC: LAB 06:19
PROVIDERS: PCP Family Medicine; Referring Provider Family Medicine; Visit Provider Family Medicine
DX: I10 Essential (primary) hypertension (principal); E03.9 Hypothyroidism, unspecified; E78.00 Pure hypercholesterolemia, unspecified; R82.71 Bacteriuria
CPT/HCPCS: 36415; 80053; 80061; 81001; 82043; 82570; 84443; 87077; 87086; 87088; 87186

== ENCOUNTER → 2025-02-15 | Outpatient (CLI) | payer MEDICARE, OTHER, SELFPAY ==
--- NOTE | 2025-02-15 08:16 | BI_ITS ---
EXAM: SCRN MAMM (CAD)W/WALESKA BILAT 02/15/2025 CLINICAL HISTORY: F, Age 79 y/o , SCREENING TECHNIQUE: Left screening digital breast tomosynthesis with 2D and 3D images. Computer aided detection. COMPARISON: Prior exam(s) dated 02/15/2024, 11/15/2022. FINDINGS: TISSUE DENSITY: The breast tissue is composed of scattered area of fibroglandular density. Left breast mammographic Findings: There is an irregular high density mass in the upper-outer left breast at middle depth. BI/SCRN MAMM (CAD)W/WALESKA BILAT IMPRESSION: The irregular mass in the upper outer left breast requires further evaluation. Recommend diagnostic ultrasound of the left breast and left axilla. Left Breast: BIRADS 0 Incomplete: Need additional imaging evaluation and/or pr ior mammograms for comparison.. OVERALL FINAL ASSESSMENT: BIRADS 0 Incomplete: Need additional imaging evaluati on and/or prior mammograms for comparison.. RECOMMENDATION: Ultrasound. A letter with findings and recommendations will be mailed to the patient. Reading Location: [id number]
== END | disposition home or self-care (01) ==
LOC: OPBI 08:15
PROVIDERS: PCP Family Medicine; Referring Provider Family Medicine; Visit Provider Family Medicine
DX: Z12.31 Encounter for screening mammogram for malignant neoplasm of breast (principal)
CPT/HCPCS: 77063; 77067

== ENCOUNTER → 2025-02-20 | Outpatient (CLI) | payer MEDICARE, OTHER, SELFPAY ==
--- NOTE | 2025-02-20 13:47 | US_ITS ---
PROCEDURE: BREAST COMPLETE UNILATERAL 02/20/2025 REASON FOR EXAM: 79-year-old female recalled for screening for a left breast mass on examination of 02/15/2025. Personal history of right breast cancer status post mastectomy in 1983 with reconstruction and implant. COMPARISON: 02/15/2025, 02/15/2024, 11/15/2022 TECHNIQUE: Targeted left breast ultrasound. FINDINGS: ULTRASOUND: Ultrasound was targeted to the left breast. Follow-up examination performed for the irregular left breast mass in the upper- outer quadrant on examination of 02/15/2025. On the present examination, there is an irregular hypoechoic mass in the left breast at 1 o'clock 6 cm from the nipple measuring 0.9 x 0.8 x 0.5 cm. There is vascular flow seen adjacent to the mass. The remainder of the left breast was imaged demonstrating no additional suspicious sonographic findings. There is no left axillary lymphadenopathy. US/Breast Complete Unilateral IMPRESSION: Suspicious left breast mass at 1 o'clock 6 cm from the nipple requires further evaluation. Recommend tissue sampling with ultrasound-guided core needle biopsy. BI-RADS 5: HIGHLY SUGGESTIVE OF MALIGNANCY. Reading Location: [id number]
== END | disposition home or self-care (01) ==
LOC: OPUS 13:45
PROVIDERS: PCP Family Medicine; Referring Provider Family Medicine; Visit Provider Family Medicine
DX: N63.21 Unspecified lump in the left breast, upper outer quadrant (principal)
CPT/HCPCS: 76641

== ENCOUNTER → 2025-03-06 | Outpatient (CLI) | payer MEDICARE, OTHER, SELFPAY ==
--- NOTE | 2025-03-06 15:15 | BRBX_PTH ---
PATIENT: BERRY BLUM LOC: [facility] U#:[id number] AGE/SX: 79/F ROOM: RE03/06/[address]: Dr. Rufina Godinez MD : 1945 BED: DIS: 03/06/2025 SPEC #: [id number] RECD: 03/06/25 16:01 STATUS: FAIZA REQ #: [id number] HARRISON: 03/06/25 15:[address]: Rufina Godinez DEPT: SURGICAL PATHOLOGY RECD BY: Herb Babcock ENTERED: 03/07/25 11:50 SP TYPE: BREAST BX OTHR DR: Dr. Cesar Sanchez MD Tissues: A - Left breast, NOS Procedures: Immunohistochemical Stains Surgery Specimen Level IV IHC Stain ADDITIONAL HEADER OPERATION: Left breast biopsy PRE-OP DIAGNOSIS: Left breast biopsy, BIRAD5 TISSUE SUBMITTED: A- Left breast mass tissue, 1o'clock, 6cm from nipple Ischemic Time: 1 minute Fixation Time: 28 hours, 15 minutes MICROSCOPIC DIAGNOSIS A. Breast, left, 1 o'clock, 6CMFN, core biopsy: * Invasive lobular carcinoma, Grade 2 (tubule 3, nuclear 2, mitosis 1). * At least 0.8 cm. * Focal LCIS (lobular carcinoma in situ). * ER: positive (100%, strong intensity) * [place]: negative * [id number]: pending, to be reported in an addendum. * Note: IHC for E-cadherin, CK5/6, and p40 support the histologic impression. MICROSCOPIC DESCRIPTION Slides are reviewed. All matched controls reacted appropriately. These tests were developed and their performance characteristics determined by [facility]. They may not have been cleared or approved by the U.S. Food and Drug Administration. The FDA has determined that such clearance or approval is not necessary.? The above immunohistochemical/dualISH?markers are ordered and reviewed by the Pathologist. GROSS DESCRIPTION A. Received in formalin labeled with the patient's name and date of . Designated as L breast biopsy are 2 pelaez tissue cores, 1.2 cm and 1.9 cm in length by 0.1 cm in diameter. Entirely submitted in 1 cassette. Cold ischemic time: 1 minute Formalin fixation time: 28 hours, 15 minutes [facility] 03/07/2025 CPT:[id number] ADDENDUM ADDENDUM ADDENDUM ADDENDUM ADDENDUM 03/15/2025 09:26 ADDENDUM 03/15/2025 09:26 ADDENDUM 03/15/2025 09:26 ADDENDUM 03/15/2025 09:26 ADDENDUM 03/15/2025 09:26 ADDENDUM 03/27/2025 08:48 This addendum is to report the results of the IHC for HER2: [id number]: equivocal (2+) [id number]: pending, to be reported in a subsequent addendum This addendum is added to incorporate an outside pathology consultation report. The case was examined at [facility] (#[id number]) and the following diagnosis was rendered. A. Left breast, 1o'clock, 6cm from nipple, core biopsy: Her2 Score: Negative HER2 SCORE REPORT - A1: HER2 SCORE: NEGATIVE HER2 / CEP17 RATIO: 0.8 HER2 COPY NUMBER / CELL: 1.9 Please see complete above mentioned consultation report in EMR
== END | disposition home or self-care (01) ==
LOC: LABSPEC 16:07
PROVIDERS: PCP Family Medicine; Referring Provider Surgery; Visit Provider Surgery
DX: N63.20 Unspecified lump in the left breast, unspecified quadrant (principal)

== ENCOUNTER 2025-03-18 10:26 | Day surgery (SDC) | payer MEDICARE, OTHER, SELFPAY ==
--- NOTE | 2025-02-28 13:33 | PCM.HP.BLA ---
History and Physical Date of Admission: 03/18/25 This is a pleasant 79-year-old lady who presents to the cardiac pharmaceutical laboratory technician for a loop recorder explant. She was previously seen for concerns of falling. This is the third episode of a significant fall with a head injury that she has had in a year. She was sitting down and got up and then appeared to be a little confused and had a significant fall. She actually injured her neck and her head she underwent a CAT scan which did not demonstrate any significant abnormality. As you know she does have a history of hypertension, mild aortic stenosis, with her last echocardiogram performed in June 2023 demonstrating ejection fraction of 65% and a mean aortic valve gradient of 12 mmHg. She also has a chronic right bundle branch block. She has complained of some dizziness when she gets up quickly from the seated position and as you know she has had a history of remote right breast mastectomy 1984. From a cardiac standpoint, the patient is doing well. She denies any palpitations, chest pain, pressure or heaviness. She denies SOB, Orthopnea, and PND. She does not have bleeding issues; no blood in urine, stool or nosebleeds. She denies any decrease in energy level, myalgias, or claudication. She does not have edema, or sudden weight gain. She denies dizziness, lightheadedness, syncopal or near syncopal episodes, and headaches. Intake Vital Signs See EMR Allergies See EMR Medications See EMR [facility] Medical History Laceration of left middle finger Status post placement of implantable loop recorder Syncope and collapse Chest tightness Non-rheumatic aortic stenosis Subdural hemorrhage Hematoma of scalp Fall Syncope Right bundle branch block (RBBB) GERD (gastroesophageal reflux disease) Cancer of right breast Hyperlipidemia Arthritis Essential (primary) hypertension Surgical History History of breast reconstruction H/O section History of appendectomy History of mastectomy Family History Brother , age 49 Cancer lung Social History Smoking Status: Former smoker quit date: 09/26/04 pack-years: 40 Tobacco: How many years used: 40 how long ago did patient quit smokin years ago second hand exposure: Yes alcohol intake: current alcohol intake frequency: 0-2 drinks per day Alcohol type: wine ROS Const Const: Negative for fatigue, weakness, fever(s), headache(s), chills, frequent falls, weight gain or weight loss Eyes Eyes: Negative for blind spots, loss of peripheral vision, transient loss of vision, blurry vision, change in vision, double vision, floaters or tunnel vision ENT ENT: Negative for headache(s), dizziness, Nosebleed/epistaxis, balance problems or neck pain Cardio Chest Pain: No Palpitations: No Edema: None Muscle aches with walking: None Resp Respiratory: Negative for SOB with activity, SOB at rest or SOB orthopnea\SOB lying down GI GI: Negative nausea, vomiting, heartburn, bloating, vomiting blood/hematemesis, bright, red blood in stools or black,tarry stools Musc Musc: Negative for muscle aches/ myalgia, muscle weakness, joint pain or balance problems Neuro Neuro: Negative for dizziness, lightheadedness, near syncope, syncope, orthostatic symptoms, frequent falls, headache(s), weakness, blurry vision or double vision Timoteo Hematologic/Lymphatic: Negative for easy bleeding or easy bruising Endo Endo: Negative for fatigue Cardiology Exam Const Appearance: cooperative, healthy appearing, no acute distress, well developed and well groomed Nutritional Appearance: average body habitus and well nourished Orientation: alert, awake and oriented x3 Head Head: normal to inspection, normocephalic and atraumatic Ears: hearing grossly normal bilaterally and external ears normal Nose: external nose normal and nares normal Face and Sinus: face symmetric Eyes General: appearance normal, both eyes and all related structures Eyelids: eyelids normal Conjunctivae: conjunctivae normal Pupils: PERRL, normal by confrontation and accommodation normal EOM: EOM intact bilaterally Neck Neck: normal visual inspection, trachea midline and no JVD JVD: +5 Carotids: normal carotid upstroke and bounding pulses Chest Chest inspection: normal inspection of the chest, symmetric chest movement and normal respiratory effort Auscultation: Bilateral: Clear to Auscultation Cardio Palpation: normal PMI Rate: regular rate Rhythm: regular rhythm Heart sounds: S1 normal, S2 normal, murmur and normal, physiologic split S2; Negative rub or gallop Murmur: Grade 2/6, soft and EMMANUEL loudest primary aortic area GI GI: normal to inspection and soft Neuro General: patient alert, patient awake, patient oriented x3, gait normal, moves all extremities and no focal sensory deficit Skin Skin: no rashes or lesions noted Extremities Pulses: Normal: Right Posterior Tibial Pulse, Left Posterior Tibial Pulse, Right Radial Pulse and Left Radial Pulse Lower Extremity Edema: None: Bilateral Musculoskel Musculoskeletal: No joint tenderness Psych Psychological: normal affect Supplemental Info Supplemental Information Echocardiogram 04/02/2024: Interpretation Summary Normal LV size. Left ventricular systolic function is normal. The left ventricular ejection fraction is 55 %. Stage 1 diastolic dysfunction. Contrast injection was performed. Echocardiogram 07/13/23 Interpretation Summary Normal LV size. Left ventricular systolic function is normal. The estimated ejection fraction is 65 %. Stage 1 diastolic dysfunction. Mild focal aortic valve calcification. Mean aortic valve gradient 12 mmHg. Echocardiogram 06/23/2020: Normal LV size. Left ventricular systolic function is normal. The estimated ejection fraction is 65 %. Stage 1 diastolic dysfunction. Contrast injection was performed. Stress Test 06/23/2020: Conclusion: Exercise myocardial perfusion stress test with no evidence of ischemia noted at a high workload. No clinical angina noted. Preserved ejection fraction. Assessment and Plan Assessment and Plan (1) Status post placement of implantable loop recorder: Status: Acute Comment: Pfeiffer ILR implanted [facility] on 03/20/24 Plan: Patient was recently diagnosed with breast cancer, and will be undergoing a mastectomy. She would like to have her loop recorder explanted prior to this.
[2025-03-15 09:14] VITALS: BMI 25.0
--- NOTE | 2025-05-06 09:45 | CL.IE_ITS ---
Patient: BERRY BLUM Study Date: 03/18/2025 Performing: Kameron Gamez MD : 1945 Age: 79 Gender: female PROCEDURES PERFORMED [id number])REMOVAL OF LOOP RECORDER INDICATIONS Syncope PROCEDURE DETAILS The patient was brought to the Catheterization Lab in the postabsorptive nonsedated state. Informed consent was obtained prior to the procedure. Local anesthetic was given subcutaneously to the left upper chest area with Lidocaine 2%. Incision was made to the left upper chest. ICM Loop Recorder was removed. Steri-strips applied to Lt chest area. The patient tolerated the procedure well. Estimated Blood Loss: 10 ml's IMPLANTED / EX-PLANTED DEVICES DEVICE PARAMETERS CONCLUSIONS / RECOMMENDATIONS Device Conclusions: Successful removal of a patient activated loop recorder. Device Recommendations: Follow up with Primary Care Physician PROCEDURE MEDICATIONS Versed 1 mg IV Antibiotic given in appropriate timeframe. Ancef 2 Gm IV @ 03/18/2025 12:43:48 Signed By Kameron Gamez MD On 03/18/2025 13:21:19 Kameron Gamez MD
== END 2025-03-18 14:20 | disposition home or self-care (01) ==
PROVIDERS: PCP Family Medicine; Referring Provider Internal Medicine Cardiovascular Disease; Visit Provider Internal Medicine Cardiovascular Disease
DX: Z45.09 Encounter for adjustment and management of other cardiac device (principal); R55 Syncope and collapse; I45.10 Unspecified right bundle-branch block; I10 Essential (primary) hypertension; R29.6 Repeated falls; Z79.899 Other long term (current) drug therapy; Z87.891 Personal history of nicotine dependence
CPT/HCPCS: 33286; 99152

== ENCOUNTER 2025-04-10 06:59 | Day surgery (SDC) | payer MEDICARE, OTHER, SELFPAY ==
--- NOTE | 2025-04-02 09:15 | EKG12_ITS ---
Test Reason : PREOP Blood Pressure : */* mmHG Vent. Rate : 58 BPM Atrial Rate : 58 BPM P-R Int : 194 ms QRS Dur : 114 ms QT Int : 450 ms P-R-T Axes : 17 74 49 degrees QTcB Int : 441 ms Sinus bradycardia Incomplete right bundle branch block Septal infarct (cited on or before 27-May-2016) Abnormal ECG Confirmed by ADDISON GARVEY, ABI ([id number]), science editor MEMO ROSE ([id number]) on 04/03/2025 7:12:04 AM Referred By: Rufina Godinez Confirmed By: ABI JAIME MD
--- NOTE | 2025-04-02 22:08 | PAT.ANE_ITS ---
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 When Was Last Pacemaker Check QUESTION #4 FULL TEXT: You/Your Family Experience fever (hyperthermia) with Anesthesia Last Oral Intake Last Oral intake: Last Oral Intake NPO since Meds taken in AM with sips of water? 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 Female Yes 03/27/25 14:44 HX of Motion Sickness Yes 03/27/25 14:44 HX of N/V After Surgery Yes 03/27/25 14:44 Non-Smoker Yes 03/27/25 14:44 Duration of Surgery greater Yes 03/27/25 14:44 than 60 minutes Number of Risk Factors 5 03/27/25 14:44 PONV Score Severe Risk 03/27/25 14:44 Height & Weight Height & Weight: Anesthesia: Height & Weight Height 5 ft 4 in 03/22/25 08:11 Respiratory Assessment Respiratory Assessment - concrete stone finishing supervisor: Respiratory Tract Infection Hx - concrete stone finishing supervisor Hx Respiratory Tract Infection No 03/27/25 14:44 STOP Sleep Apnea STOP Sleep Apnea - concrete stone finishing supervisor: STOP Sleep Apnea - concrete stone finishing supervisor Hx Hypertension Yes: CONTROLLED ON MED 03/27/25 14:44 Hx Sleep Apnea No 03/27/25 14:44 CPAP No 03/27/25 14:44 BIPAP Do you snore loudly (louder No 03/27/25 14:44 than talking or can be heard Do you often feel tired/ No 03/27/25 14:44 fatigued/ sleepy during daytime? Has anyone observed you stop No 03/27/25 14:44 breathing during sleep? STOP Results Negative 03/27/25 14:44 QUESTION #5 FULL TEXT : Do you snore loudly (louder than talking or can be heard through closed doors)? 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 Specify any problems Hx of Preganancy in last 3 No 03/27/25 14:44 Months Nurse Filling Out Transfusion VCHRISTIN 03/27/25 14:44 & Questions: Date: 03/27/25 03/27/25 14:44 Time: 14:50 03/27/25 14:44 Patient unable to answer at this time (ie. 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: /Reproductive Hx- concrete stone finishing supervisor Hx Now No 03/27/25 14:44 Gestational Age (in weeks): EDC: Hx Hx Para Hx Section SAB No 03/27/25 14:44 PFSH Medical History Wears hearing aid Wears glasses Post-menopausal Cancer Alcohol use Thyroid disease High cholesterol Injury of back Injury of head and neck Syncope Gastric reflux Former smoker History of echocardiogram History of stress test Cardiology follow-up encounter Laceration of left middle finger Status post placement of implantable loop recorder Syncope and collapse Syncope Fall Hematoma of scalp Subdural hemorrhage Non-rheumatic aortic stenosis Chest tightness Right bundle branch block (RBBB) GERD (gastroesophageal reflux disease) Cancer of right breast Hyperlipidemia Arthritis Essential (primary) hypertension Home Medications ?Medication ?Instructions ?Recorded ?Last Taken ?Type iiscwcmm-cqak-frnb 8 mg-folic 400 1 ea PO DAILY SUPPLE MENT 05/27/16 03/20/24 History mcg-K 50 mcg-lutein 300 mcg tablet benzonatate 200 mg capsule 200 mg PO TID PRN cough #20 caps 03/16/18 Unknown Rx atorvastatin 40 mg tablet 40 mg PO QHS CHOLESTEROL #90 tabs 07/12/24 Unknown Rx famotidine-Ca carb-mag hydrox 10 1 tab PO DAILY PRN in digestion 07/12/24 Unknown History mg-800 mg-165 mg chewable tablet (Pepcid Complete) metoprolol succinate 25 mg 25 mg PO DAILY BP #90 tabs 07/12/24 03/18/25 Rx tablet,extended release 24 hr (Toprol XL) melatonin 10 mg capsule 20 mg PO HS PRN insomnia 08/20 Unknown History levothyroxine 75 mcg tablet 75 mcg PO DAILY THYROID Unknown History Allergy/AdvReac Type Severity Reaction Status Date / Time bupropion HCl (From Zyban) Allergy Severe Hives Verified 03/28/25 09:52 red dye Allergy Mild Itching Verified 03/28/25 09:52 bupropion (From Zyban) Allergy Hives Verified 03/28/25 09:52 acetaminophen (From Vicodin) AdvReac N/V Verified 03/28/25 09:52 hydrocodone (From Vicodin) AdvReac N/V Verified 03/28/25 09:52 hydromorphone AdvReac constipatio Verified 03/28/25 09:52 n Family History Brother , age 49 Cancer lung Surgical History Hx of neck surgery History of breast reconstruction H/O section History of appendectomy History of mastectomy Social History Smoking Status: Former smoker quit date: 09/26/04 pack-years: 40 Tobacco: How many years used: 40 how long ago did patient quit smokin years ago second hand exposure: Yes alcohol intake: current alcohol intake frequency: 0-2 drinks per day Alcohol type: wine Audit: Pertinent Findings Pertinent Findings EKG Perinent findings: 03/09/2024. Normal sinus rhythm. Right bundle branch block. Septal infarct, age undetermined. Stress test pertinent findings: 06/23/2020 EF of 86%. No areas of reversibility noted to suggest ischemia. No previous infarct. Echo (EF%) pertinent findings: 04/02/24. EF of 55%. Mild aortic stenosis. Consult pertinent findings: 07/12/2024. Vincent THORPE. 1. Syncope?inactive-patient has a history of syncope. Denies any recent symptoms. 2. Nonrheumatic aortic stenosis?acute-mild on most recent echo 04/02/2024. Stable at this time. Continue to monitor. 3. Hypertension?chronic?controlled. 4. Loop recorder?implanted. Continue to monitor with regularly scheduled interrogations. Recommendation Anesthesia Recommendation Anesthesia recommendation: OPTIMIZED for anesthesia (Mild aortic stenosis. Avoid high heart rates and low blood pressure. Phenylephrine is drug of choice.)
[2025-04-10] VITALS (20 sets, daily range): BP systolic 127–172; BP diastolic 57–100; PULSE 55–87; RESP 12–17; TEMP 36.2–37.1; O2SAT 84–99; BMI 25.2; BMI 26.0
--- NOTE | 2025-04-10 07:17 | HP.PCM.SX_ITS ---
HPI - General HPI Narrative HPI from clinic, 07 March 2025: The patient is a 79-year-old female presenting with a suspicious lump in the left breast. Previous medical history reveals a mastectomy on the right breast due to cancer approximately 40 years ago, followed by reconstruction using silicone implants, which eventually ruptured. This rupture was confirmed much later through MRI after several attempts to receive a diagnosis. Currently, the patient has undergone a biopsy for a potential malignancy on the left side. She had a mammogram and ultrasound, and a biopsy was performed to determine the nature of the lump. The patient has opted for surgical management over chemotherapy or radiation if malignancy is confirmed, emphasizing her preference following her previous experiences with breast surgery. Attestation: Documentation on this patient encounter was supported using ambient scribe technology/ voice AI technology. The patient consented to recording for the purpose of documenting the encounter. Provider reviewed content of the generated note prior to signature. 13 March 2025: The patient is a 79-year-old female presenting with a suspicious lump in the left breast. Previous medical history reveals a mastectomy on the right breast due to cancer approximately 40 years ago, followed by reconstruction using silicone implants, which eventually ruptured. This rupture was confirmed much later through MRI after several attempts to receive a diagnosis. Currently, the patient has undergone a biopsy for a potential malignancy on the left side. She had a mammogram and ultrasound, and a biopsy was performed to determine the nature of the lump. The patient has opted for surgical management over chemotherapy or radiation if malignancy is confirmed, emphasizing her preference following her previous experiences with breast surgery. Side of Diagnosis: Left Prior Breast Surgery: R mastectomy (Skin Sparing) with submuscular silicone implant Bra Size: C Desired Bra Size: Same as right Attestation: Documentation on this patient encounter was supported using ambient scribe technology/ voice AI technology. The patient consented to recording for the purpose of documenting the encounter. Provider reviewed content of the generated note prior to signature. Current Encounter, 28 March 2025: Patient is here today for to further discuss breast reconstruction options and get more questions answered. The patient discussed the possibility of placing the implant above or below the muscle, with considerations for matching the right side, which is below the muscle. The benefits of submuscular placement include additional protection and less visibility of the implant's top, which can be camouflaged with fat grafting if necessary. Patient would like to have the tissue lockstitch waistline joiner placed above the muscle after our discussion. The surgical plan includes the possibility of using a tissue lockstitch waistline joiner initially, with the option to delay implant placement if the surgical site does not appear optimal post-mastectomy. The patient is informed about the potential need for multiple procedures, including the use of FlexHD to stabilize the implant and the process of expanding the tissue lockstitch waistline joiner with air initially, followed by fluid Current Encounter (DATE OF SURGERY H&P UPDATE): I saw and examined the patient this morning in pre-operative holding. We discussed risks and benefits of today's surgery and they would like to proceed. NO CHANGE in health history since last seen and evaluated. Ready to proceed with surgery. FORMERLY [facility], [facility] Medical History Wears hearing aid Wears glasses Post-menopausal Cancer Alcohol use Thyroid disease High cholesterol Injury of back Injury of head and neck Syncope Gastric reflux Former smoker History of echocardiogram History of stress test Cardiology follow-up encounter Laceration of left middle finger Status post placement of implantable loop recorder Syncope and collapse Syncope Fall Hematoma of scalp Subdural hemorrhage Non-rheumatic aortic stenosis Chest tightness Right bundle branch block (RBBB) GERD (gastroesophageal reflux disease) Cancer of right breast Hyperlipidemia Arthritis Essential (primary) hypertension Home Medications ?Medication ?Instructions ?Recorded ?Last Taken ?Type axghxjke-rjoc-[id number] 8 mg-folic 400 1 ea PO DAILY SUPPLE MENT 05/27/16 03/20/24 History mcg-K 50 mcg-lutein 300 mcg tablet benzonatate 200 mg capsule 200 mg PO TID PRN cough #20 caps 03/16/18 Unknown Rx atorvastatin 40 mg tablet 40 mg PO QHS CHOLESTEROL #90 tabs 07/12/24 Unknown Rx famotidine-Ca carb-mag hydrox 10 1 tab PO DAILY PRN in digestion 07/12/24 Unknown History mg-800 mg-165 mg chewable tablet (Pepcid Complete) metoprolol succinate 25 mg 25 mg PO DAILY BP #90 tabs 07/12/24 03/18/25 Rx tablet,extended release 24 hr (Toprol XL) melatonin 10 mg capsule 20 mg PO HS PRN insomnia 08/20 Unknown History levothyroxine 75 mcg tablet 75 mcg PO DAILY THYROID Unknown History Allergy/AdvReac Type Severity Reaction Status Date / Time bupropion HCl (From [employer]) Allergy Severe Hives Verified 03/28/25 09:52 red dye Allergy Mild Itching Verified 03/28/25 09:52 bupropion (From Zyban) Allergy Hives Verified 03/28/25 09:52 acetaminophen (From Vicodin) AdvReac N/V Verified 03/28/25 09:52 hydrocodone (From Vicodin) AdvReac N/V Verified 03/28/25 09:52 hydromorphone AdvReac constipatio Verified 03/28/25 09:52 n Family History Brother , age 49 Cancer lung Surgical History Hx of neck surgery History of breast reconstruction H/O section History of appendectomy History of mastectomy Social History Smoking Status: Former smoker quit date: 09/26/04 pack-years: 40 Tobacco: How many years used: 40 how long ago did patient quit smokin years ago second hand exposure: Yes alcohol intake: current alcohol intake frequency: 0-2 drinks per day Alcohol type: wine Physical Exam Narrative EXAM: A&O x3, NAD Breast Exam: Left breast with biopsy site in the lateral aspect Axillary Lymphadenopathy: No Scars: Mastectomy scar in the right breast (transverse). Implant is under the muscle on the right side (animation deformity). Note: measurements are in centimeters SN to NIPPLE:? L: 21? ? ?R: No nipple IMF to NIPPLE: ? ? ? L: 7 ? ? R: No nipple WIDTH: ? L: 14.5 ? ? R: 14.5 IMF is the same on both sides but there is significant asymmetry with the right implant sitting IN the chest wall and grade 2 ptosis on the left Assessment & Plan Assessment/Plan (1) Invasive lobular carcinoma of breast in female: (2) Left breast mass: PLAN: Plan This is a 79-year-old year-old female with invasive lobular carcinoma, left breast. The patient is a candidate for implant-based breast reconstruction with tissue lockstitch waistline joiner followed by exchange for silicone implant (patient desires silicone as she has a silicone on the other side) and possible use of acellular dermal matrix, use of acellular dermal matrix (ADM) is used as an off-label device and can potentially increase postoperative complications (discussed infection, seroma, failure to incorporate, and other ADM complications). Furthermore we discussed subpectoral placement of the tissue lockstitch waistline joiner to match the contralateral breast, but patient wants above muscle for pain considerations. Will plan for prepectoral. I talked her about multistage surgery with exchange of the tissue lockstitch waistline joiner once it is at the appropriate size for approximately 3 months. An extensive discussion was undertaken with the patient detailing the risks, luca efits and alternatives to implant-based breast reconstruction. We talked about surveillance of the implant and how she needs to have surveillance of the right side at some point (although does not feel ruptured on my exam, and she has normal grade 1 capsule). The effects of radiation on breast reconstruction, should that become a necessary part of her treatment, were discussed.? The patient verbalized understanding of these risks.? All questions were fully answered.?? Mrs. Abad was given supplemental information on breast reconstruction.? I have advised her to contact me at any time and/or return to see me with further questions she may have regarding breast reconstruction. Photographs have been taken and will be sent to the insurance company as necessary. The tissue lockstitch waistline joiner will initially be filled with air, followed by fluid expansion in subsequent visits to gradually prepare for the permanent implant. This phased approach is intended to minimize complications and ensure optimal outcomes. I talked to the patient extensively about the risks of surgery, including bleeding, infection, damage to surrounding structures, poor scaring, surgical site dehiscence and wound formation, need for wound care, need for repeat operations, implant infection/need for removal, fluid collections/infection risks from the off-label use of ADM (The use of FlexHD is planned to stabilize the implant and ensure proper positioning), failure to obtain the desired result, DVT/PE, and the risks of anesthesia including , including stroke (from low blood pressure/ischemia or clot). The benefits and alternatives of this surgery were also discussed. INTERVAL H&P PLAN, DATE OF SURGERY: We will proceed with surgery today. Discussed with patient and she would like to go prepectoral (not under the muscle). Plastic surgery will be available as needed for reconstruction (skin sparing mastectomy followed by tissue lockstitch waistline joiner placement, but PREPECTORAL with ADM wrap)
[2025-04-10] MEDS: Lactated Ringers 1,000 ML 15 ML IV (07:43)
--- NOTE | 2025-04-10 08:05 | NM_ITS ---
PROCEDURE: LYMPH NODE INJECTION ONLY 04/10/2025 REASON FOR EXAM: LEFT BREAST CANCER TECHNIQUE: LYMPH NODE INJECTION ONLY 555 uCi of Tilmanocept was injected subdermally 1 cm above the left nipple for sentinel node imaging. RADIOPHARMACEUTICAL DOSE: 555 uCi COMPARISON: None FINDINGS: None NM/Lymph Node Injection Only IMPRESSION: Successful injection of 555 uCi of Tilmanocept injected subdermally for sentine l node imaging. Reading Location: [place] [id number]
--- NOTE | 2025-04-10 08:41 | PCM.HP.BLA ---
History and Physical Date of Admission: 04/10/25 Date of Service: 03/22/25 MR#: [id number] Acct: [id number] Name: BERRY BLUM Rep #: [id number] : 1945 Provider: Dr. Rufina Godinez MD Age/Sex: 79/F Location: [facility] Status: Signed Intake Vital Signs 03/15/2509:19 03/18/2511:00 03/22/2508:11 Height 5 ft 4 in 5 ft 4 in 5 ft 4 in Weight: 145 lb BMI 24.9 BP 147/85 H Blood Pressure Location Rt brachial Position Sitting Respiration 18 Pulse 52 L Pulse Source Monitor Temp 97.6 F L Temp Source Temporal Pulse Oximetry (%) 98 Oxygen Delivery Method room air Intake Visit Reasons: DISCUSS MASECTOMY COMBO WITH DR PHILIP Chief Complaint: discuss masectomy combo with Dr. Philip Is patient in pain?: No Allergies bupropion HCl (From Zyban) Allergy (Severe, Verified 03/22/25 08:12) Hivesred dye Allergy (Mild, Verified 03/22/25 08:12) Itchingbupropion (From Zyban) Allergy (Verified 03/22/25 08:12) Hivesacetaminophen (From Vicodin) Adverse Reaction (Verified 03/22/25 08:12) N/Vhydrocodone (From Vicodin) Adverse Reaction (Verified 03/22/25 08:12) N/Vhydromorphone Adverse Reaction (Verified 03/22/25 08:12) constipation Medications ?Medication ?Instructions ?Recorded ?Confirmed ?Type kzhglmhe-uxba-joie 8 mg-folic 400 1 ea PO DAILY 05/27/16 03/22/25 History mcg-K 50 mcg-lutein 300 mcg tablet omega-3 fatty acids 1,000 mg 1,000 mg PO DAILY 05/27/16 03/22/25 History capsule benzonatate 200 mg capsule 200 mg PO TID PRN cough #20 caps 03/16/18 03/22/25 Rx antiarthritic combination no.2 900 mg PO 06/04/20 03/22/25 History mg tablet (glucosamine-chondroitin) atorvastatin 40 mg tablet 40 mg PO QHS #90 tabs 07/12/24 03/22/25 Rx famotidine-Ca carb-mag hydrox 10 1 tab PO DAILY PRN indigestion 07/12/24 03/22/25 History mg-800 mg-165 mg chewable tablet (Pepcid Complete) metoprolol succinate 25 mg 25 mg PO DAILY #90 tabs 07/12/24 03/22/25 Rx tablet,extended release 24 hr (Toprol XL) coconut oil 1,000 mg capsule mg PO 03/06/25 03/22/25 History levothyroxine 25 mcg tablet 75 mcg PO DAILY 03/06/25 03/22/25 History melatonin 10 mg capsule 10 mg PO HS PRN insomnia 03/06/25 03/22/25 History Have you fallen in the past year?: No PFSH Medical History Laceration of left middle finger Status post placement of implantable loop recorder Syncope and collapse Chest tightness Non-rheumatic aortic stenosis Subdural hemorrhage Hematoma of scalp Fall Syncope Right bundle branch block (RBBB) GERD (gastroesophageal reflux disease) Cancer of right breast Hyperlipidemia Arthritis Essential (primary) hypertension Surgical History History of breast reconstruction H/O section History of appendectomy History of mastectomy Family History Brother , age 49 Cancer lung Social History Smoking Status: Former smoker quit date: 09/26/04 pack-years: 40 Tobacco: How many years used: 40 how long ago did patient quit smokin years ago second hand exposure: Yes alcohol intake: current alcohol intake frequency: 0-2 drinks per day Alcohol type: wine HPI HPI HPI: 79-year-old female presents to discuss treatment for left invasive lobular carcinoma. Patient previously had right mastectomy due to breast cancer. Patient is interested in having mastectomy with reconstruction. Patient and markers were ER positive AL negative, HER2 equivocal FISH pending. Patient is already seeing Dr. Murrieta. ROS General General: Yes breast cancer; No weight change, appetite, fatigue, colon cancer or weakness HEENT HEENT: No difficulty swallowing, eye injury, eye surgery, swollen glands or hoarseness Endo Endocrine: No thyroid disease, diabetes mellitus, thyroid cancer, Hair loss, heat intolerance or cold intolerance Skin Skin: No rash or changing moles Breast Breast: No left breast lump, right breast lump, nipple discharge, breast pain, abnormal mammogram, abnormal US or breast enlargement Musc Musculoskeletal: No back problems, arthritis, rheumatoid arthritis, gout or joint pain Cardio Cardiovascular: No murmur, pacemaker, heart disease, atrial fibrillation, high blood pressure, heart attack, heart stent, palpitations, shortness of breath with exertion or chest pain Psych Psychiatric: No depression, anxiety or hearing voices Resp Respiratory: No shortness of breath, No sleep apnea, No cough, No COPD, No asthma, No emphysema and No wheezing Gastro Gastrointestinal: No abdominal pain, No nausea or vomiting, No diarrhea, No constipation, No blood in stool, Yes acid reflux, Yes hemorrhoids, No ulcers, No gallbladder problem and No black,tarry stools Timoteo Hematologic: No blood thinners, No blood disorders, No bleeding, No anemia and No blood clots Neuro Neurologic: No system reviewed and no additional complaints, except as documented, No as per HPI, No abnormal gait, No abnormal hearing, No abnormal movements, No abnormal speech, No behavioral changes, No burning sensations, No confusion, No convulsions, No disequilibrium, No dizziness, No localized weakness, No frequent falls, No headache(s), No lack of coordination, No loss of vision, No memory loss, No numbness, No other visual disturbances, No radicular pain, No restless legs, No sensory deficit, No syncope, No tingling, No tremor(s), No weakness and No other Exam Const General: cooperative, healthy appearing and no acute distress [facility] Head: normal to inspection Chest Other: Breast inspection: Right mastectomy incision well-healed, previous biopsy incision healing well ecchymosis resolving?incision with Steri-Strips from removal loop recorder?left breast Resp Effort & Inspection: normal respiratory effort Cardio Rate: regular rate GI Inspection: non-distended Palpation: soft Skin General: no rashes or lesions noted Neuro General: patient oriented x3 Extrem General: no clubbing, cyanosis or edema Psych Affect: normal affect Assessment and Plan Assessment and Plan (1) Invasive lobular carcinoma of breast in female: Status: Acute Comment: Left Plan I have given the patient options for initial surgical treatment. Options are the following: lumpectomy followed by radiation therapy vs. mastectomy vs. mastectomy followed by immediate reconstruction. I have described the procedures to the patient. I have described the advantages and disadvantages of the options, but I have told the patient that among the options, the survival rate for breast cancer is the same. I have told the patient that with all the surgeries that a sentinel lymph node biopsy is required. I have described the procedure of sentinel lymph node biopsy to the patient. I have told the patient that if the biopsy is positive for metastatic disease, then a full axillary lymph node dissection is typically required however due to your age would likely not perform full axillary lymph node dissection. Currently clinically she is negative in the axilla. I have told the patient that adjuvant chemotherapy will be required should the lymph nodes reveal metastatic disease. Also, a full lymph node dissection will increase the risk for lymphedema, especially if there are 4 or more lymph nodes positive for metastatic disease and radiation to the axilla is also required. I have told the patient the risks of surgery, including but not limited to: infection, bleeding, scar tissue, seroma and persistent seroma, lymph leak, injury to any blood vessels, injury to any nerves (particularly the long thoracic, the thoracodorsal, and the second intercostal brachial and the resultant sequelae), lymphedema, cosmetic deformity, dysesthesias, wound infections, further surgery (especially if margins are not clear), complications of anesthesia, etc. the patient understands. Planning for left mastectomy, reconstruction with Dr. Philip, sentinel lymph node biopsy with nuclear tracer and blue dye. I have answered all the patient?s questions at this point to her satisfaction and she has no further questions. Rufina Godinez M.D. Pager: [phone] [facility] [address] [place] [address], [address] [place] [address] Office: [phone] Coding Level of Care Code Off vis,est,level 4 Diagnoses Invasive lobular carcinoma of breast in female C50.919 Clinical Quality Measures Falls Risk Screening/Assistive Devices Have you fallen in the past year?: No 03/25/25 0845 <Electronically signed by Rufian Godinez MD> Date Rufina Godinez MD
--- NOTE | 2025-04-10 08:47 | PCM.PRE.AN2 ---
ASA Classification* ASA Classification ASA Classification: 2 Assessment & Plan Anesthesia* Anesthesia Assessment Anesthesia Assessment: Discussed sedation and/or anesthesia options, risks, benefits, and alternatives with patient/parents/legal guardian/POA. Questions invited. The patient/parents/legal guardian/POA seems to understand and agrees to proceed with anesthesia plan. Reviewed the physical assessment, medical history, allergy history and patient home medications list prior to surgery/procedure/anesthetic and documented any changes. Performed airway and anesthesia risk assessments. Anesthesia Type Anesthesia Type: General (discussed GA with ETT. Discussed possibility of injury to teeth, gums, lips, PONV, CA, CVA, post-op ventilation.) History Source History Obtained from:: Patient and Chart Anesthesia Focused Assessment* Temperature: 98 F Pulse Rate: 55 Blood Pressure: 135/57 Respiratory Rate: 16 Pulse Ox: 97 Oxygen Delivery Method: Room Air Airway Assessment Mouth opens: >3 cm Mallampati Score: II Teeth Condition: Intact Labs Anesthesia Preop lab: CBC WBC 5.4 K/mm3 (4.4-11.0) 08/06/24 08:35 08/06/24 RBC 4.47 M/mm3 (4.2-5.4) 08/06/24 08:35 08/06/24 Hgb 14.0 g/dL (12.0-15.0) 08/06/24 08:35 08/06/24 Hct 44.6 % (37-47) 08/06/24 08:35 08/06/24 Plt Count 243 K/mm3 (150-450) 08/06/24 08:35 08/06/24 CHEMISTRY Potassium 4.2 mmol/L (3.3-5.1) 02/05/25 06:30 02/05/25 Sodium 141 mmol/L (133-145) 02/05/25 06:30 02/05/25 BUN 17 mg/dL (4-19) 02/05/25 06:30 02/05/25 Creatinine 1.06 mg/dL (0.70-1.20) 02/05/25 06:30 02/05/25 Glucose 96 mg/dL (70-99) 02/05/25 06:30 02/05/25 TSH 0.902 uIU/mL (0.300-4.200) 02/05/25 06:30 02/05/25 COAG PT 14.2 SECONDS (11.7-14.9) 03/09/24 16:36 03/09/24 Pre-Assessment Diagnosis/Proposed Procedure Planned Operative Procedure(s): (L) Left Mastectomy w/SLN bx, blue dye & radiotracer - COMBO CASE WITH SISKA (L) LEFT BREAST TISSUE AIRBORNE SENSOR SPECIALIST PLACEMENT SUB MUSCULAR WITH ACELLULAR DERMAL MATRIX. 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 When Was Last Pacemaker Check QUESTION #4 FULL TEXT: You/Your Family Experience fever (hyperthermia) with Anesthesia Any additional information?: Yes Any Problems With Anesthesia: Yes (PONV) Cholinesterase deficiency: No You/your family experience fever (hyperthermia) with anesthesia: No Last Oral Intake Last Oral intake: Last Oral Intake NPO since 04:00 04/10/25 07:33 Meds taken in AM with sips of Yes 04/10/25 07:33 water? 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 Female Yes 03/27/25 14:44 HX of Motion Sickness Yes 03/27/25 14:44 HX of N/V After Surgery Yes 03/27/25 14:44 Non-Smoker Yes 03/27/25 14:44 Duration of Surgery greater Yes 03/27/25 14:44 than 60 minutes Number of Risk Factors 5 03/27/25 14:44 PONV Score Severe Risk 03/27/25 14:44 Height & Weight Height & Weight: Anesthesia: Height & Weight Height 5 ft 4 in 04/10/25 07:33 Weight: 66.678 kg 04/10/25 07:33 Body Mass Index (BMI) 25.2 04/10/25 07:33 Respiratory Assessment Respiratory Assessment - sweet goods machine operator: Respiratory Tract Infection Hx - sweet goods machine operator Hx Respiratory Tract Infection No 03/27/25 14:44 STOP Sleep Apnea STOP Sleep Apnea - sweet goods machine operator: STOP Sleep Apnea - sweet goods machine operator Hx Hypertension Yes: CONTROLLED ON MED 03/27/25 14:44 Hx Sleep Apnea No 03/27/25 14:44 CPAP No 03/27/25 14:44 BIPAP Do you snore loudly (louder No 03/27/25 14:44 than talking or can be heard Do you often feel tired/ No 03/27/25 14:44 fatigued/ sleepy during daytime? Has anyone observed you stop No 03/27/25 14:44 breathing during sleep? STOP Results Negative 03/27/25 14:44 QUESTION #5 FULL TEXT : Do you snore loudly (louder than talking or can be heard through closed doors)? 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 Specify any problems Hx of Preganancy in last 3 No 03/27/25 14:44 Months Nurse Filling Out Transfusion VCHRISTIN 03/27/25 14:44 & Questions: Date: 03/27/25 03/27/25 14:44 Time: 14:50 03/27/25 14:44 Patient unable to answer at this time (ie. confused, unrespo /Reproduction History /Reproductive History - sweet goods machine operator: /Reproductive Hx- sweet goods machine operator Hx Now No 03/27/25 14:44 Gestational Age (in weeks): EDC: Hx Hx Para Hx Section SAB No 03/27/25 14:44 Active Medications Active Medications: Current Medications Generic Name Dose Route Start Last Admin Trade Name Freq PRN Reason Stop Dose Admin Cefazolin Sodium 2 gm/ Sodium 110 mls @ 200 mls/hr 04/10/25 09:00 Chloride IV 04/10/25 09:32 INTRAOP ONE Lactated Ringer's 1,000 mls @ 15 mls/hr 04/10/25 07:15 04/10/25 07:43 IV 15 mls/hr .Q48H JOYCELYN Administration PFSH Medical History Wears hearing aid Wears glasses Post-menopausal Cancer Alcohol use Thyroid disease High cholesterol Injury of back Injury of head and neck Syncope Gastric reflux Former smoker History of echocardiogram History of stress test Cardiology follow-up encounter Laceration of left middle finger Status post placement of implantable loop recorder Syncope and collapse Syncope Fall Hematoma of scalp Subdural hemorrhage Non-rheumatic aortic stenosis Chest tightness Right bundle branch block (RBBB) GERD (gastroesophageal reflux disease) Cancer of right breast Hyperlipidemia Arthritis Essential (primary) hypertension Home Medications ?Medication ?Instructions ?Recorded ?Last Taken ?Type frfcvfir-gzao-rrko 8 mg-folic 400 1 ea PO DAILY SUPPLEMENT 05/27/16 03/20/24 History mcg-K 50 mcg-lutein 300 mcg tablet benzonatate 200 mg capsule 200 mg PO TID PRN cough #20 caps 03/16/18 04/03/25 Rx atorvastatin 40 mg tablet 40 mg PO QHS CHOLESTEROL #90 tabs 07/12/24 04/09/25 Rx famotidine-Ca carb-mag hydrox 10 1 tab PO DAILY PRN indigestion 07/12/24 04/08/25 History mg-800 mg-165 mg chewable tablet (Pepcid Complete) metoprolol succinate 25 mg 25 mg PO DAILY BP #90 tabs 07/12/24 04/10/25 04:00 Rx tablet,extended release 24 hr (Toprol XL) melatonin 10 mg capsule 20 mg PO HS PRN insomnia 03/06/25 Unknown History levothyroxine 75 mcg tablet 75 mcg PO DAILY THYROID 03/27/25 04/10/25 History cephalexin 500 mg capsule 500 mg PO Q8H 2 weeks #42 caps 04/10/25 Unknown Rx Allergy/AdvReac Type Severity Reaction Status Date / Time bupropion HCl (From Zyban) Allergy Severe Hives Verified 04/10/25 07:26 red dye Allergy Mild Itching Verified 04/10/25 07:26 bupropion (From Zyban) Allergy Hives Verified 04/10/25 07:26 hydrocodone (From Vicodin) AdvReac N/V Verified 04/10/25 07:26 hydromorphone AdvReac constipatio Verified 04/10/25 07:26 n Family History Brother , age 49 Cancer lung Surgical History Hx of neck surgery History of breast reconstruction H/O section History of appendectomy History of mastectomy Social History Smoking Status: Former smoker quit date: 09/26/04 pack-years: 40 Tobacco: How many years used: 40 how long ago did patient quit smokin years ago second hand exposure: Yes alcohol intake: current alcohol intake frequency: 0-2 drinks per day Alcohol type: wine Review of Systems (Anesthesia) ROS Narrative System reviewed and no additional complaints, except as documented. Physical Exam Const alert and oriented x3 HEENT dentition normal
--- NOTE | 2025-04-10 09:00 | BREAST_PTH ---
PATIENT: BERRY BLUM [place] [facility] [id number] AGE/SX: 79/F ROOM: RE04/10/[address]: Dr. Rufina Godinez MD : 1945 BED: DIS: 04/11/2025 SPEC #: [id number] RECD: 04/10/25 10:54 STATUS: FAIZA REZoë #: [id number] HARRISON: 04/10/25 09:[address]: Rufina Godinez DEPT: SURGICAL PATHOLOGY RECD BY: Herb Babcock ENTERED: 04/10/25 12:07 SP TYPE: BREAST OTHR DR: Dr. Cesar Sanchez MD Tissues: A - LYMPH NODE BIOPSY B - Left breast, NOS Procedures: Frozen Section (charge) Immunohistochemical Stains Surgery Specimen Level IV IHC Stain ADDITIONAL HEADER OPERATION: Left mastectomy with sentinel lymph node biopsy, blue dye and radiotracer PRE-OP DIAGNOSIS: Invasive lobular carcinoma of breast in female, left breast mass TISSUE SUBMITTED: A- Left sentinel lymph nodes, B- Left breast tissue *long stitch- middle lateral margin, short stitch- superior margin* FROZEN SECTION DIAGNOSIS A. Left breast, sentinel lymph nodes, biopsy: Atypical cells defer to permanent sections. MS/mr 04/10/2025 MICROSCOPIC DIAGNOSIS A. Lymph nodes, sentinel, left, biopsy: - Three sentinel lymph nodes negative for metastasis (0/3). - IHC for panKeratin supports the histologic impression. B. Breast, left, mastectomy: - Invasive lobular carcinoma Grade 2 (tubule 3, nuclear 2, mitosis 1), 0.9 cm, surgical margins free, pT1b,pN0. - Focal ductal carcinoma in situ (DCIS), low nuclear grade, surgical margins free. - ER: positive (100%, strong intensity) - SD: negative - [id number]: negative (score 0) - Biopsy site changes, focal organizing fat necrosis. SYNOPTIC REPORT FOR INVASIVE BREAST CARCINOMA Specimen (P=partial, M=mastectomy):?M Laterality (R=right, L=left):?L Focality (U=unifocal, M=multifocal):?U Tumor size (cm):?0.9 cm Histologic type:?invasive lobular Histologic grade:?2 ??? Tubule score (1-3):?3 ??? Nuclear score (1-3):?2 ??? Mitotic score (1-3):?1 Skin, nipple epidermis, skeletal muscle (I=involved, N=negative, NA=not applicable):?N Lymphovascular invasion (E=extensive, F=focal, N=not identified):?N Margins of main specimen (P=positive, N=negative):?N Distance to closest margin of main specimen (mm):?2.5 mm Designation of closest margin of main specimen:?superior Designation of other margins of main specimen </=1 mm:?NA Re-resection margin status (P=positive, N=negative, NA=not applicable):?NA ? DCIS (P=present, N=not identified):?P ?? Nuclear grade:?low ?? Comedo necrosis (P=present, N=not identified):?N ?? Extensive intraductal component (P=present, N=not identified):?N ?? Margins of main specimen (P=positive, N=negative):?N ?? Distance to closest margin of main specimen (mm):?4 mm ?? Designation of closest margin of main specimen:?superior ?? Designation of other margins of main specimen </=2 mm:?NA ?? Longest span </= 2 mm to margin of main specimen (mm):?NA ?? Re-resection margin status (P=positive, N=negative, NA=not applicable):?NA ? Regional lymph nodes: ?? Total number of lymph nodes:?3 ?? Number of sentinel lymph nodes:?3 ?? Number with macrometastases:?0 ?? Number with micrometastases:?0 ?? Number with isolated tumor cells:?0 ?? Size of largest lakshmi metastasis (mm):?NA ?? Size of extranodal extension (mm) (N=not identified):?NA ? Estrogen receptor:?positive (100%, strong intensity) Progesterone receptor:?negative HER2 IHC:?negative HER2 FISH:?NA Specimen in which ER/SD/HER2 performed:?[id number] pTNM:?pT1b pN0 Additional findings:?Biopsy site changes, focal organizing fat necrosis. Comment:?A radiograph of the breast specimen was performed to assist in the sectioning of the specimen and the image was reviewed and correlated with the histological findings. ? The above synoptic report complies, in slightly modified form, with the guidelines of the [employer] and the Association of Directors of Anatomic and Surgical Pathology for the reporting of cancer specimens MICROSCOPIC DESCRIPTION Slides are reviewed. GROSS DESCRIPTION A. Received fresh for frozen section diagnosis labeled with the patient's name and date of . Designated as left sentinel nodes frozen are 3 intact lymph nodes ranging from 0.4 x 0.3 x 0.3 cm to 1.7 x 0.7 x 2 smaller lymph nodes have blue dye discoloration. Each lymph node is sectioned and entirely submitted for frozen section diagnosis and subsequently cassettes A1-A3 for permanent sections. Frozen section diagnosis: Atypical cells defer to permanent sections. Dr. Placido Moreno at [facility] consulted via [employer]. Frozen section TAT: 27 minutes/ 3 FS = 9 minutes each. B. Received in formalin labeled with the patient's name and date of . Designated as left breast tissue is a 286 g mastectomy specimen measuring 16.5 x 14.4 x 6.5 cm (SI/ML/AP). The specimen is surfaced by a 7.6 x 2.4 cm pelaez skin ellipse. The skin is grossly unremarkable. There is a central nipple and areola, 1.0 cm and 2.8 cm, respectively. The nipple is not inverted. An axillary tail is not present. Muscle is not present on the posterior aspect. Blue dye is present throughout the specimen. There is a short suture designated as superior, and a long suture designated as middle lateral. The specimen is inked as follows: Superior: BlueInferior: Green Posterior: BlackMedial: YellowLateral: Wells The specimen is serially sectioned into 12 levels revealing a 0.9 x 0.9 x 0.7 cm pelaez-white indurated mass in slice #9, within the upper outer quadrant located approximately 6.0 cm from the nipple. A ribbon biopsy clip is present within the mass. The mass is located the following distances from:Superior: <0.3 cmInferior: 3.7 cmPosterior: 1.3 cmLateral: 1.4 cmMedial: >7.0 cmSkin: 3.3 cm No additional lesions are grossly identified. The remaining cut surfaces are fibrofatty (95% fatty, 5% fibrotic]. Ship Design Teacher sections are submitted as follows: B1: Nipple and areolaB2: Levels #3 and #4, upper inner quadrantB3: Levels #4 and #5, lower inner quadrantB4: Levels #9 and #11, lower outer quadrantB5: Level #9, mass to superiorB6: Level #9, mass to superior, posteriorB7: Level #9, mass with biopsy site, 2 superior, posteriorB8: Level #10, lateralB9: Level #11, upper outer quadrant Cold ischemic time <1 minuteFormalin fixation time: 31 hours, 50 minutes PR 04/11/2025 CPT:[id number]
[2025-04-10] MEDS: 0.9% Normal Saline (Pres. free 10 ML Vial (10:14)
--- NOTE | 2025-04-10 11:42 | OP.PCM_ITS ---
Oncology: Sorin Requirements . Oncology surgical intervention performed: [place] Node Biopsy for Breast Cancer performed [place] Node Bx - Breast Cancer: Synoptic Portion: Element Response Options Operation performed with curative intent. Yes Tracer(s) used to identify sentinel nodes in the upfront surgery (non- neoadjuvant) setting (select all that apply). Dye; Radioactive tracer Tracer(s) used to identify sentinel nodes in the neoadjuvant setting (select all that apply).N/A All nodes (colored or non-colored) present at the end of a dye-filled lymphatic channel were removed. Yes All significantly radioactive nodes were removed. Yes All palpably suspicious nodes were removed. N/A Biopsy-proven positive nodes marked with clips prior to chemotherapy were identified and removed. N/A. Operative Report (Standard) Operative Information Date of Procedure: 04/10/25 Pre-Operative Diagnosis: Invasive lobular carcinoma left breast Post-Operative Diagnosis: Same Surgery/Procedure Performed: Left skin sparing mastectomy, sentinel lymph node biopsy Lymphoseek and methylene blue administrative program specialist: Yes Glass Cutter: Damion Soler Tasks completed by assistant professor sculpture: Opening & closing and Retracting Type of Anesthesia: General/Supplemental RN Documented Start/Stop Times: Operation Date: 04/10/25 09:00 Case Time Into Pre-Op 04/10/25 07:02 Out of Pre-Op 04/10/25 09:55 Anesthesia Start 04/10/25 09:56 Into Room 04/10/25 09:56 Procedure Start 04/10/25 10:29 Procedure End 04/10/25 13:36 Anesthesia End 04/10/25 13:48 Out of Room 04/10/25 13:48 Into Recovery 04/10/25 13:50 Procedure Start Time: 10:29 Procedure Stop Time: 11:50 (My portion of the surgery) Select all DRAINS/GRAFTS/IMPLANTS that apply: Drains Drain details: Please see Dr. Philip's operative report Special Medications: Ancef 2 g IV x 1 Estimated Blood Loss: 10 cc Specimen collected: Yes Description of specimen(s) removed: Left axillary sentinel nodes, left mastectomy Description of surgery: In AC the breast tissue was injected with Lymphoseek. 30 minutes later the patient was taken to the operating room and general anesthesia was induced. 6 cc of methylene blue blue dye was injected in the 4 quadrants periareolar along with 10 cc of normal saline. This was massaged gently for 5 minutes. The left breast and axilla were prepped and draped in usual sterile fashion. A timeout was completed verifying correct patient, procedure, site, positioning, special equipment prior to beginning procedure. Handheld gamma probe was used to identify the location of the hottest spot in the axilla. Prior to the incision, the counts were 25. The incision was made a nd the hot and blue nodes were identified. The probe was placed in contact with the node in the 10 count was 1604 and 1838. The bed of the node measured 20 counts. No additional blue or hot nodes were detected. Frozen stated there were some atypical cells present but unable to tell more on frozen. Skin sparing incision was made that encompassed the nipple areolar complex transversely across the breast. Flaps are raised in the avascular plane between the flap and the breast tissue from the clavicle superiorly, the sternum medially, the anterior rectus sheath inferiorly, and posterolateral border of the pectoralis major muscle laterally. Hemostasis was achieved in the flaps. Next, the breast tissue and underlying pectoralis fascia were excised from the pectoralis major muscle, progressing from medial to laterally. At the lateral border of the pectoralis major muscle, the breast tissue was swung laterally and the lateral pedicle identified with the breast tissue gave way to the fat of the axilla. The lateral pedicle was incised and the specimen removed and oriented for pathology. The wound was irrigated and hemostasis was achieved. The axillary incision was closed with interrupted 3-0 Vicryl to the simultaneously followed by a subcuticular layer of 4-0 Monocryl and Dermabond. Please see Dr. Philip's operative report for the reminder of the procedure. Surgical Findings: Benton lymph node frozen showed some atypical cells unable to delineate further on frozen Complications Complications: No
--- NOTE | 2025-04-10 13:58 | PCM.POST.ANE ---
Anesthesia: Postop Eval I Current Vital Signs Temperature: 97.6 F Pulse Rate: 69 Blood Pressure: 163/90 Respiratory Rate: 16 Pulse Ox: 96 Oxygen Delivery Method: Nasal Cannula Oxygen Flow Rate (L/min): 4 Assessment Airway patent: Yes Spontaneous unlabored respirations: Yes Mental status: Awake and Calm nausea: No Vomiting: No Anesthesia Complication: No Fluid Hydration Crystalloid volume administer (ml): 1,200 Total IV fluid infused: 1,200 Progress Note Anesthesia document: Postop Eval 1 completed: Yes
--- NOTE | 2025-04-10 15:21 | SUR.PHASEI ---
family update via legal administrative secretary, 20 minutes ago
--- NOTE | 2025-04-10 16:04 | POSTOPAN2_ITS ---
Anesthesia Postop Eval I Sum Postop Eval Completion status Anesthesia document: Postop Eval 1 completed: Yes Anesthesia Postop Eval I Summary Anesthesia Postop Eval I Summary: Anesthesia Postop Eval I: Assessment Summary Airway patent Yes 04/10/25 13:59 [email or web address] Spontaneous unlabored Yes 04/10/25 13:59 [email or web address] respirations Mental status Awake,Calm 04/10/25 13:59 [email or web address] nausea No 04/10/25 13:59 [email or web address] Vomiting No 04/10/25 13:59 [email or web address] Anesthesia Postop Eval I: Fluid Summary Crystalloid volume administer 1,200 04/10/25 13:59 [email or web address] (ml) Colloids volume administered ( ml) Blood Product volume administered (ml) Total IV fluid infused 1,200 04/10/25 13:59 [email or web address] Anesthesia Postop Eval I: Summary Notes Anesthesia Complication No 04/10/25 13:59 [email or web address] Anesthesia Complication Comment: Post-operative progress note Anesthesia: Postop Eval II Evaluation Mental status: Awake and Calm Pain Level: 3 nausea: No Vomiting: No Complications Anesthesia Complication: No
--- NOTE | 2025-04-10 16:04 | PCM.POSTANE2 ---
Anesthesia Postop Eval I Sum Postop Eval Completion status Anesthesia document: Postop Eval 1 completed: Yes Anesthesia Postop Eval I Summary Anesthesia Postop Eval I Summary: Anesthesia Postop Eval I: Assessment Summary Airway patent Yes 04/10/25 13:59 [email or web address] Spontaneous unlabored Yes 04/10/25 13:59 [email or web address] [email or web address] respirations Mental status Awake,Calm 04/10/25 13:59 [email or web address] [email or web address] nausea No 04/10/25 13:59 [email or web address] [email or web address] Vomiting No 04/10/25 13:59 [email or web address] Anesthesia Postop Eval I: Fluid Summary Crystalloid volume administer 1,200 04/10/25 13:59 [email or web address] (ml) Colloids volume administered ( ml) Blood Product volume administered (ml) Total IV fluid infused 1,200 04/10/25 13:59 [email or web address] Anesthesia Postop Eval I: Summary Notes Anesthesia Complication No 04/10/25 13:59 [email or web address] Anesthesia Complication Comment: Post-operative progress note Anesthesia: Postop Eval II Evaluation Mental status: Awake and Calm Pain Level: 3 nausea: No Vomiting: No Complications Anesthesia Complication: No
--- NOTE | 2025-04-10 16:27 | OP.PCM_ITS ---
Operative Report (Standard) Operative Information Date of Procedure: 04/10/25 Pre-Operative Diagnosis: Left breast cancer Post-Operative Diagnosis: Same Surgery/Procedure Performed: 1) Intraoperative assessment of mastectomy flaps with SPY (CPT: 95340) 2) Prepectoral placement of left breast tissue analyst geochemical prospecting with acellular dermal matrix (CPT: 98248) 3) Use of acellular dermal matrix (Flex HD) to reinforce/stabilize tissue analyst geochemical prospecting in the breast pocket (CPT: 95942) loan officer assistant: Yes Data Management Engineer: Damion Soler Tasks completed by occupational therapist assistant: Retracting Type of Anesthesia: General RN Documented Start/Stop Times: Operation Date: 04/10/25 09:00 Case Time Into Pre-Op 04/10/25 07:02 Out of Pre-Op 04/10/25 09:55 Anesthesia Start 04/10/25 09:56 Into Room 04/10/25 09:56 Procedure Start 04/10/25 10:29 Procedure End 04/10/25 13:36 Anesthesia End 04/10/25 13:48 Out of Room 04/10/25 13:48 Into Recovery 04/10/25 13:50 Out of Recovery 04/10/25 16:05 Procedure Start Time: 01:00 Procedure Stop Time: 13:36 Select all DRAINS/GRAFTS/IMPLANTS that apply: Drains (2 drains) Drain details: one 19 Filipino and one 15 Filipino Miguel A drain tunneled out medially and laterally , Tissue (Acellular dermal matrix) Tissue details: Flex HD pliable PRE-L-21 x 24 cm, expiration 01/01/2028, serial #[id number], products code [id number] and Implanted device (Tissue analyst geochemical prospecting) Implanted device details: [place] CPX 4+ s mooth medium height, 13.5 cm base width, 550 cc (inflated with 150 cc of air). Lot [id number], serial #[id number], expiration date June. Estimated Blood Loss: 20 cc Specimen collected: No Description of surgery: Indications: Patient is a delightful 79-year-old female with left breast cancer here for skin sparing mastectomy. Discussed risks, benefits, and alternatives, to reconstruction and she elected to proceed with reconstruction using ADM and tissue analyst geochemical prospecting. Procedure details: Patient was correctly identified in preoperative holding and I marked the IMF and the breast mound. She was taken back to the operating room where the mastectomy portion of the procedure was performed by Dr. Godinez. Please see her separate dictation for her portion of the case. The notes were apparently clinically negative (sentinel nodes), and there was no plan for axillary dissection. Plastic surgery was called in the room. The breast cavity was irrigated with Irrisept and the chest wall was reprepped and draped with new drapes. A timeout was performed. Hemostasis was obtained with Bovie electrocautery and the left breast pocket. We then injected 3 cc of indocyanine green and the flaps were assessed with fluorescence angiography using the SPY machine. There was a small area on the inferior flap immediately adjacent to the mastectomy incision that measured approximately 1 x 4 cm which was excised full-thickness with a curved Gross scissor as there was concern that this area had poor perfusion. Otherwise the rest of the mastectomy flaps had excellent perfusion and were of adequate thickness. Attention was then turned to reconstruction with a tissue analyst geochemical prospecting. The tissue analyst geochemical prospecting was wrapped with the above-noted ADM circumferentially (edges of the ADM were sutured together with 3-0 Vicryl suture) and washed with Irrisept. The breast cavity was then irrigated again and washed with Irrisept. With new gloves the tissue analyst geochemical prospecting and ADM were placed in the left breast pocket in the prepectoral plane. The medial 9:00 and inferior 6:00 suture tabs were then sutured to the chest wall with 2-0 PDS. We are happy with the placement at this point. The tissue analyst geochemical prospecting was further reinforced with suturing the ADM medially to the chest with interrupted PDS sutures in a 12:00 suture with an interrupted PDS suture to stabilize the tissue analyst geochemical prospecting and ADM in place. Two drains were then placed, one 15 Filipino drain medially and one 19 Filipino drain laterally. 3-0 Vicryl deep sutures were then placed to approximate the soft tissues over the implant followed by 3-0 Monocryl deep dermal sutures and 3-0 Monocryl running subcuticular sutures. Prineo tape was applied. The drains were holding suction at the end of the case. Patient tolerated the procedure well. Counts were correct at the end of the case. She was awakened and taken to the PACU in stable condition. Surgical Findings: Healthy mastectomy flaps except for very small portion (1 x 4 cm) of the inferior mastectomy flap immediately adjacent to the incision site which was excised full-thickness. Complications Complications: No Admit VTE Documentation VTE Mechan Device Prophylaxis: SCD's
[2025-04-10] MEDS: Lactated Ringers 1,000 ML 80 ML IV (16:45)
[2025-04-10] MEDS: Cefazolin 2 GM in 0.9% Normal Saline (100mL Bag) 100 ML IV ×2 (18:21→23:46)
[2025-04-11] VITALS (18 sets, daily range): BP systolic 133–157; BP diastolic 77–90; PULSE 82–95; RESP 17–19; TEMP 36.8–36.9; O2SAT 84–98
[2025-04-11] MEDS: Lactated Ringers 1,000 ML 80 ML IV (01:23)
[2025-04-11] MEDS: Cefazolin 2 GM in 0.9% Normal Saline (100mL Bag) 100 ML IV ×2 (05:31→14:43)
[2025-04-11 05:58] LABS: Hematocrit 37.8 % (37-47); Hemoglobin 12.4 g/dL (12.0-15.0); Immature Granulocytes Count 0.020 X10^3/uL (0.0-0.0); Mean Corp Hgb Conc 32.8 g/dL (32-36); Mean Corpuscular Volume 99.5 fL (81-99); Mean Platelet Vol. 9.5 fl (6.2-12.0); NRBC Flagged by Analyzer 0 % (0-5); Platelet Count 199 K/mm3 (150-450); RBC Distribution Width CV 13.0 % (11.6-14.6); RBC Distribution Width SD 46.8 fl (35.1-43.9); Red Blood Count 3.80 M/mm3 (4.2-5.4); White Blood Count 7.4 K/mm3 (4.4-11.0)
--- NOTE | 2025-04-11 06:42 | PN.SURG_ITS ---
Subjective Subjective Patient evaluated resting comfortably in bed. She denies any nausea, vomiting. She notes minimal amount of incisional discomfort. She denies wearing oxygen at home. She notes this happened previously following another surgery. Objective Data Objective Data Vital Signs: Vital Signs Temp Pulse Resp BP Pulse Ox O2 Del Method O2 Flow Rate 98.2 F 95 18 142/90 H 97 Nasal Cannula 3 04/11/25 05:19 04/11/25 05:19 04/11/25 05:19 04/11/25 05:19 04/11/25 06:07 04/11/25 06:07 04/11/25 06:07 Oxygen Flow Rate (L/min) 3 Oxygen Delivery Method Nasal Cannula Weight: 151 lb 14.368 oz Body Mass Index (BMI) 26.0 Intake & Output: Intake and Output for Last 24 Hours 04/09/25 04/10/25 04/11/25 23:59 23:59 23:59 Intake Total 365.5 / 365.5 910.67 / 910.67 Output Total 200 / 200 40 / 40 Balance 165.5 / 165.5 870.67 / 870.67 Lab / Micro Data 04/11/25 05:40 Labs: Laboratory Results - last 24 hr 04/11/25 05:40: WBC 7.4, RBC 3.80 L, Hgb 12.4, Hct 37.8, MCV 99.5 H, MCH 32.6 H, MCHC 32.8, RDW Std Deviation 46.8 H, RDW Coeff of Toyin 13.0, Plt Count 199, MPV 9.5, Immature Gran % (Auto) 0.300, Neut % (Auto) 73.3 H, Lymph % (Auto) 18.0 L, [place] % (Auto) 7.3, Eos % (Auto) 0.8, Baso % (Auto) 0.3, Absolute Neuts (auto) 5.4, Absolute Lymphs (auto) 1.33, Nucleated RBC % 0 Radiography Diagnostic Testing: Radiology Impression [place] Node 04/10/25 08:05 IMPRESSION: Successful injection of 555 uCi of Tilmanocept injected subdermally for sentinel node imaging. [facility] Chest Chest Narrative: Left chest- incision c/d/i. No erythema or infection noted. FADIA drains intact. Post-operative bra in place. Assessment & Plan Assessment/Plan (1) Invasive lobular carcinoma of breast in female: PLAN: I am following this patient in conjunction with Dr. Godinez. She will independently evaluate this patient. Discussed home-going instructions with the patient No lifting greater than 5 pounds Nursing will demonstrate drain care prior to discharge Continue to wean patient off of oxygen Ordered oxycodone to try inpatient. Will plan to send home on a small prescription if tolerate. Patient will follow-up with Dr. Godinez next Tuesday at 2:30pm Plan for discharge later today Charges/Coding Visit Charges Inpatient E&M: 94555 Subs Hosp L1 (post-op; no charge)
--- NOTE | 2025-04-11 06:47 | PCM.PN.SRG ---
Subjective Subjective Pain controlled. Desaturation overnight while sleeping but able to do 1500 with IS this morning on rounds. Objective Data Objective Data Vital Signs: Vital Signs Temp Pulse Resp BP Pulse Ox O2 Del Method O2 Flow Rate 98.2 F 95 18 142/90 H 97 Nasal Cannula 3 04/11/25 05:19 04/11/25 05:19 04/11/25 05:19 04/11/25 05:19 04/11/25 06:07 04/11/25 06:07 04/11/25 06:07 Oxygen Flow Rate (L/min) 3 Oxygen Delivery Method Nasal Cannula Weight: 151 lb 14.368 oz Body Mass Index (BMI) 26.0 Intake & Output: Intake and Output for Last 24 Hours 04/09/25 04/10/25 04/11/25 23:59 23:59 23:59 Intake Total 365.5 / 365.5 1210.67 / 1210.67 Output Total 200 / 200 40 / 40 Balance 165.5 / 165.5 1170.67 / 1170.67 Lab / Micro Data 04/11/25 05:40 Labs: Laboratory Results - last 24 hr 04/11/25 05:40: WBC 7.4, RBC 3.80 L, Hgb 12.4, Hct 37.8, MCV 99.5 H, MCH 32.6 H, MCHC 32.8, RDW Std Deviation 46.8 H, RDW Coeff of Toyin 13.0, Plt Count 199, MPV 9.5, Immature Gran % (Auto) 0.300, Neut % (Auto) 73.3 H, Lymph % (Auto) 18.0 L, [place] % (Auto) 7.3, Eos % (Auto) 0.8, Baso % (Auto) 0.3, Absolute Neuts (auto) 5.4, Absolute Lymphs (auto) 1.33, Nucleated RBC % 0 Radiography Diagnostic Testing: Radiology Impression [place] Node 04/10/25 08:05 IMPRESSION: Successful injection of 555 uCi of Tilmanocept injected subdermally for sentinel node imaging. Reading Location: [facility] Physical Exam Narrative CHEST: LEFT: No bleeding, mastectomy flaps healthy/viable. Drains SS. No hematoma. Const alert and oriented x3 General Appearance: cooperative Resp normal respiratory effort Resp Narrative: 1500 on IS Extremity normal to inspection Extremity Narrative: SCDs on and activated Assessment & Plan Assessment/Plan (1) Invasive lobular carcinoma of breast in female: PLAN: Expected course Drain care teaching before discharge (discussed with nursing) F/u with me on , 18 April 2025 Antibiotics while drains in place (I ordered 2 weeks of Keflex) Charges/Coding Procedures Integumentary [id number]: [id number] Global Visit
--- NOTE | 2025-04-11 07:21 | DCINST_ITS ---
Discharge Instructions DC O2, CPAP, BIPAP needs Home O2 Discharge instructions: No Dressing / Incision Discharge Activity: May Not Drive (5 days) and May Shower Lifting Restrictions: No lifting greater than 5 pounds Dressing / Incision Call your doctor if your incision/area has: Continuous Slow Oozing, Sudden Increased Bleeding, Increased Pain/ Swelling, Increased Redness, Foul Smelling Discharge and Swelling at the incision site Call your doctor if you observe: Fever of 101 or Higher Suture Line Care: Avoid Pulling/Pushing and Avoid Pinching/Bending Cleanse incision/area with: Soap & Water Follow Up Care Please Follow Up With: Rufina Godinez MD When: April 17 at 2:30 pm. Contact our office at [phone], option #4 for a nurse Test Results: Test results from this visit will be discussed in further detail at your follow- up appointment, if applicable. Discharge Plan Admission Primary Reason for Your Visit: S/p left breast mastectomy with sentinel lymph biopsy and skin sparing Attending Provider: Rufina Godinez Primary Care Provider: Cesar Sanchez Consulting Providers: Giacomo Philip Instructions Additional Instructions / Restrictions: Breast tissue occupational hygienist placement Instructions for My Care at Home or Healthcare Facility The following instructions will help you know what to expect in the days following surgery. These are general instructions. Your surgeon and therapist may give you special instructions, which vary to some degree based on your specific procedure -- follow those as directed. Do not, however, hesitate to call if you have any questions or concerns. Splint Care/Dressing Care/Wound Care * Dressings - You may have a dressing over the operative site. * If the dressing feels too tight after you get home, it is ok to gently pull on the dressing to stretch it out/loosen it. * Do not put pressure over the breast incision site. Wear a loose bra with padding, no rubbing on the incision * Avoid smoking or other tobacco products. Smoking tobacco impairs wound healing and increases the risks of post-operative complications. * Tape over your incisions (if present) will fall off on its own ? Activities * For the first 4 weeks after surgery, try to balance your activity, allowing time for rest. * Avoid lifting, pushing, or pulling anything over 5 pounds. * Do not drive or operate heavy machinery within 24 hrs of surgery or while taking narcotic pain medication.? Pain Control/Medications * If you received an anesthetic block, your hand or arm may be numb for several hours. You will be discharged to home with medications, including an oral pain medication (analgesic). Rest and elevation are still one of the most important factors for pain control. Take your pain medication as needed, but do not wait for the pain to become out of control. * For severe pain, you may take prescription pain medication as directed, but please note that this may also contain Tylenol (e.g. Percocet). Do not take more than 4000mg of Tylenol (acetaminophen) from all sources daily.? * Pain medication may cause some lethargy, nausea, and or constipation. You should not drive/operate dangerous machinery while taking these medications. If these or other symptoms become significantly problematic, please your surgeon's office. * If prescribed oral antibiotics (Keflex, Clindamycin, or others), please take prescription for full duration as instructed. You should not have any pills remaining once completed (refills are written for your convenience should the course need to be extended, but generally they are not required). Diet (what I can eat): Resume normal diet Follow up * You will be seen (most likely) 1 to 2 weeks after surgery depending on the procedure. Follow-up appointment reminders:? (A list of any scheduled appointments is at the end of this document)? At your earliest convenience, please call [phone] to confirm/schedule a follow-up appointment with me in clinic. When to call your surgeon: * If any signs of surgical site infection develop: redness, pus, pain, increased swelling or foul odor at the incision site, fever, cold and clammy skin, or confusion. * Consistent temperature above 101?F (38.3?C). * The affected area gets swollen or much more painful. * You have excessive bleeding from surgical site (soaking through). If you experience difficulty breathing and/or shortness of breath, seek immediate medical attention. If experiencing any of the above complications or if you have any questions, call [phone] Drain Care:? A drain has been placed during surgery in order to prevent the accumulation of fluids beneath your skin. The drain decreases the chance of infection and helps in the healing process. The nursing staff will instruct you and your family on the care and recording of drainage. ? * You may shower with them. Let soap and water run down over drains, rinse and pat dry with clean towel. Reinforce with gauze or ABD pad around drain site if leaking occurs around the drain; this is not unusual.?Hold drains in your hand or attach to lanyard (or string) around your neck with safety pin so they do not hang from your body (the tension on your skin may cause them to be pulled out) while your are showering. * The drains are attached to you with suture. If your drain(s) falls out accidentally, place a clean piece of gauze over the drain site with tape and discard your drain.? * If your drain bulb loses suction or your drain has migrated out from the drain site, do not attempt to push the drain back into your skin. Cover the area with dry gauze. You may be asked by your surgeon to place a piece of semi occlusive dressing (tegaderm) over the drain site to keep the site clean and drain in place until you are seen in the office.? * When you are wearing clothes, attach drains to your clothes in a place where there is minimal/no tension on the insertion site to your skin.? * You should empty the drainage and record the output at least 2 times per day, or when the drainage fills the bulb almost longterm. Please keep daily amounts of drainage separate for each drain for a 24-hour period (for example drain #1 put out 40 mL for 24 hours).? * Strip your drains daily as shown to you by your nurse prior to discharge to avoid them from becoming clogged:? * Wash your hands. * Strip tubing three times a day (more often if there are a lot of blood clots). * Grasp tubing close to body with one hand and pull toward body. With other hand grasp tubing below the first hand. Using an alcohol swab, pinch tubing tightly, sliding fingers down tubing, away from body. * Repeat 2 or 3 times. Be sure drainage is flowing into bulbs. * Measure the drainage in the bulb by either using the calibrations on the bulb or by emptying the Bulb into small measuring container 3 times a day (more often if there is a lot of drainage or they feel heavy) Open small lid on top of bulb. Pour drainage into container. Squeeze bulb and hold while replacing small lid. Bulb should be collapsed to be effective. Pin bulb to clothing so the weight will not pull on the insertion site. * Measure drainage and record amount each time you empty the bulbs. Hold container at eye level to read the numbers on the side of the container. Read the numbers in the ml column. Record amount of drainage on chart. * Record your drain output daily and bring this record with you to your next follow up appointment. Drains will typically be removed in the clinic when output is less than 30 mL/24 hours per drain over 2 consecutive days. For drain removal appointment, please call your doctors office directly to schedule.? Location: Drain #1 Drain #2 Drain #3 Drain #4 AM Noon PM AM Noon PM AM Noon PM AM Noon PM Date: Total (daily) AM Noon PM AM Noon PM AM Noon PM AM Noon PM Date: Total (daily) AM Noon PM AM Noon PM AM Noon PM AM Noon PM Date: Total (daily) AM Noon PM AM Noon PM AM Noon PM AM Noon PM Date: Total (daily) AM Noon PM AM Noon PM AM Noon PM AM Noon PM Date: Total (daily) AM Noon PM AM Noon PM AM Noon PM AM Noon PM Date: Total (daily) AM Noon PM AM Noon PM AM Noon PM AM Noon PM Date: Total (daily) AM Noon PM AM Noon PM AM Noon PM AM Noon PM Date: Total (daily) AM Noon PM AM Noon PM AM Noon PM AM Noon PM Date: Total (daily) 0 AM Noon PM AM Noon PM AM Noon PM AM Noon PM Date: Total (daily) AM Noon PM AM Noon PM AM Noon PM AM Noon PM Date: Total (daily) AM Noon PM AM Noon PM AM Noon PM AM Noon PM Date: Total (daily) AM Noon PM AM Noon PM AM Noon PM AM Noon PM Date: Total (daily) AM Noon PM AM Noon PM AM Noon PM AM Noon PM Date: Total (daily) AM Noon PM AM Noon PM AM Noon PM AM Noon PM Date: Total (daily) Discharge Orders/Prescriptions Prescriptions: New cephalexin 500 mg capsule 500 mg PO Q8H 14 Days Qty: 42 0RF acetaminophen 325 mg Tablet 650 mg PO Q6H PRN PRN (Reason: Pain Score 1-10) Qty: 0 0RF oxycodone 5 mg Tablet 5 mg PO Q6H PRN PRN (Reason: Pain Score 1-10) 3 Days Qty: 10 0RF docusate sodium [Colace] 100 mg capsule 100 mg PO BID Qty: 10 0RF Continued benzonatate 200 mg capsule 200 mg PO TID PRN (Reason: cough) Qty: 20 0RF Pepcid Complete 10-800-165 mg tablet,chewable 1 tab PO DAILY PRN (Reason: indigestion) metoprolol succinate [Toprol XL] 25 mg tablet extended release 24 hr 25 mg PO DAILY Qty: 90 3RF atorvastatin 40 mg tablet 40 mg PO QHS Qty: 90 3RF melatonin 10 mg capsule 20 mg PO HS PRN (Reason: insomnia) [id number]-[id number]-[id number]-FA-vit K-lut 1 EACH tablet 1 ea PO DAILY levothyroxine 75 mcg tablet 75 mcg PO DAILY Other Ambulatory Orders: 12 Lead EKG (Routine) Timeframe: [id number] Location: None Selected Ordered By: Dr. Rufina Godinez Referrals / Follow Up: Cesar Sanchez MD [Primary Care Provider] - Rufina Godinez MD [Med Staff - Active Staff] - 04/17/25 2:30 pm Disposition Disposition (needs filled in before D/C Order can be placed): Home, Self Care
[2025-04-11] MEDS: Metoprolol(XL)Succ 25 MG Tablet PO (08:32)
[2025-04-11] MEDS: 0.9% Normal Saline (250mL Bag) 250 ML 15 ML IV (14:52)
--- NOTE | 2025-04-11 14:54 | CASEMGMT ---
Addendum entered by Reinier Bear 04/11/25 15:32: Pt has a pulse ox @ home. She is aware to wear O2 @ 2 L/M @ rest and 4 L/M w/exertion. Pt denies having any discharge concerns/needs. She is aware to f/u with PCP in 1 week re: O2 and aware of change w/ f/u appt w/Dr Godinez. Cristopher Rowe liaison, in room at this time and will go over further home O2 instructions. Original Note: ASHLEY MO NOTE: Pt to be discharged home today. Home O2 amb testing has been completed and pt qualifies for home O2. Script obtained from [facility]. ASHLEY MO to room. Pt sitting on edge of bed. She is aware she will need home O2. Discussed DME companies and she chose [employer]. Script sent to [facility] via [employer]. Elena SIERRA RN, CM
--- NOTE | 2025-04-11 15:35 | CASEMGMT ---
Met with patient to complete LORA form. LORA form and its content were verbally explained and patient's questions were answered to the best of my ability.? Patient voiced understanding and signed LORA form.? Patient provided a copy of signed LORA form and original placed in patient's chart.? Patient had no further questions. Lizzette Levin, Discharge Planning Asst
== END 2025-04-11 17:00 | disposition home or self-care (01) ==
LOC: SDC 07:00 → AC 07:00 → SDC 13:57 → MS3 04-11 06:40
PROVIDERS: Surgery Plastic and Reconstructive Surgery; PCP Family Medicine; Referring Provider Surgery; Visit Provider Surgery
PROC: (CPT 19307; principal; 2025-04-10 08:40)
PROC: (CPT 15777; 2025-04-10 08:40)
DX: C50.412 Malignant neoplasm of upper-outer quadrant of left female breast (principal); I10 Essential (primary) hypertension; Z17.0 Estrogen receptor positive status [ER+]; Z90.11 Acquired absence of right breast and nipple; Z79.899 Other long term (current) drug therapy; Z87.891 Personal history of nicotine dependence
CPT/HCPCS: 15777; 15860; 19357; 19303; 38525; 38792; 85025; 88305; 88331; 88341; 88342; 93005; 94668; A4648; A9520; J2405

== ENCOUNTER → 2025-04-19 | Outpatient (CLI) | payer MEDICARE, OTHER, SELFPAY ==
[2025-04-19 09:58] LABS: Hematocrit 40.7 % (37-47); Hemoglobin 13.1 g/dL (12.0-15.0); Immature Granulocytes Count 0.020 X10^3/uL (0.0-0.0); Mean Corp Hgb Conc 32.2 g/dL (32-36); Mean Corpuscular Volume 102.5 fL (81-99); Mean Platelet Vol. 9.4 fl (6.2-12.0); NRBC Flagged by Analyzer 0 % (0-5); Platelet Count 261 K/mm3 (150-450); RBC Distribution Width CV 12.9 % (11.6-14.6); RBC Distribution Width SD 49.1 fl (35.1-43.9); Red Blood Count 3.97 M/mm3 (4.2-5.4); White Blood Count 5.8 K/mm3 (4.4-11.0)
[2025-04-19 13:37] LABS: AST(SGOT) 26 U/L (<=31); Alanine Aminotransfer ALT/SGPT 18 U/L (<=34); Albumin, Serum 4.0 g/dL (3.4-4.8); Alkaline Phosphatase 86 U/L (35-104); Anion Gap 10 (5-15); BUN 17 mg/dL (4-19); BUN/Creat Ratio 15.3 RATIO (10-20); Calcium,Total 9.1 mg/dL (7.6-11.0); Carbon Dioxide 25.9 mmol/L (21.0-32.0); Chloride 106 mmol/L (98-108); Globulin 2.5 g/dL (2.2-4.2); Glucose 99 mg/dL (70-99); Potassium 4.5 mmol/L (3.3-5.1)
[2025-04-19 13:59] LABS: Free T3 2.3 pg/mL (2.18-3.98)
== END | disposition home or self-care (01) ==
LOC: MFPLAB 09:16
PROVIDERS: PCP Family Medicine; Referring Provider Family Medicine; Visit Provider Family Medicine
DX: E03.9 Hypothyroidism, unspecified (principal); M79.89 Other specified soft tissue disorders
CPT/HCPCS: 36415; 80053; 84439; 84443; 84481; 85025

== ENCOUNTER 2025-04-23 08:40 | Outpatient (CLI) | payer MEDICARE, OTHER, SELFPAY ==
[2025-04-23 10:39] LABS: Vitamin B12 693 pg/mL (180-914)
--- OUTSIDE RECORDS SUMMARY | 2025-04-23 10:59 | XMS RPT_ITS | CCD ---
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 Aria Sanchez Primary Care Provider Dr. Kameron Gamez Attending Provider Aria Sanchez MD Primary Care Provider [phone] RADHA MOSLEY Referring Unavailable ARIA SANCHEZ Primary Care Unavailable ARIA SANCHEZ Primary Care Unavailable ARIS MARIN Referring Unavailable RADHA MOSLEY Attending Unavailable ARIA SANCHEZ Primary Care Unavailable ARIS MARIN Referring Unavailable RADHA MOSLEY Attending Unavailable ARIA SANCHEZ Primary Care Unavailable Dr. Aria Sanchez MD Primary Care Provider Dr. Kameron Gamze MD Attending Provider Dr. Aria Sanchez MD Attending Provider [phone] Aria Sanchez MD Referring Provider [phone] Kamilah Barrow Referring Provider Unavailable Kamilah Barrow Other Provider Unavailable Dr. Rufina Godinez MD Attending Provider Dr. Rufina Godinez MD Referring Provider Dr. Giacomo Philip MD Attending Provider Dr. Kameron Gamez MD Referring Provider Dr. Giacomo Philip MD Other Provider Dr. Rufina Godinez MD Other Provider Dr. Rufina Godinez MD Admit Provider Yajaira Landrum PA-C Attending Provider Dr. Shelli Piper MD Attending Provider Theo GARVEY, Dr. Godwin Referring Provider Sanchez, Aria Primary Care Unavailable Franco, [place] Attending Unavailable Robotham, Rufina Referring Unavailable Robotham, Rufina Attending Unavailable Sanchez, Aria Primary Care Unavailable Sanchez, Aria Primary Care Unavailable Sanchez, Aria Attending Unavailable Sanchez, Aria Primary Care Unavailable Sanchez, Aria Referring Unavailable Erick Anderson Attending Unavailable Siska, Giacomo Attending Unavailable Robotham, Rufina Referring Unavailable Robotham, Rufina Consulting Unavailable Sanchez, Aria Primary Care Unavailable Robotham, Rufina Referring Unavailable Robotham, Rufina Consulting Unavailable Robotham, Rufina Attending Unavailable Sanchez, Aria Primary Care Unavailable Siska, Giacomo Attending Unavailable Sanchez, Aria Referring Unavailable Sanchez, Aria Primary Care Unavailable Siska, Giacomo Attending Unavailable Sanchez, Aria Referring Unavailable Sanchez, Aria Primary Care Unavailable Sanchez, Aria Primary Care Unavailable Sanchez, Aria Referring Unavailable Sanchez, Aria Attending Unavailable Sanchez, Aria Referring Unavailable Sanchez, Aria Attending Unavailable Sanchez, Aria Primary Care Unavailable Sanchez, Aria Attending Unavailable Sanchez, Aria Referring Unavailable Sanchez, Aria Primary Care Unavailable Siska, Giacomo Attending Unavailable Sanchez, Aria Referring Unavailable Sanchez, Aria Primary Care Unavailable Sanchez, Aria Primary Care Unavailable Sanchez, Aria Referring Unavailable Vincent BRITTON, Alka Attending Unavailable Siska, Giacomo Attending Unavailable Siska, Giacomo Consulting Unavailable Robotham, Rufina Referring Unavailable Robotham, Rufina Admitting Unavailable Sanchez, Aria Primary Care Unavailable Robotham, Rufina Consulting Unavailable Yajaira Monet Attending Unavailable Kamilah Barrow Consulting Unavailable Kamilah Barrow Referring Unavailable Franco, Kameron Attending Unavailable Sanchez, Aria Primary Care Unavailable Sanchez, Aria Primary Care Unavailable Tato Venegas Referring Unavailable Franco, [place] Attending Unavailable Sanchez, Aria Primary Care Unavailable Franco, Kameron Attending Unavailable Siska, Giacomo Consulting Unavailable Robotham, Rufina Referring Unavailable Robotham, Rufina Admitting Unavailable Robotham, Rufina Attending Unavailable Sanchez, Aria Primary Care Unavailable Siska, Giacomo Attending Unavailable Sanchez, Aria Primary Care Unavailable Sanchez, Aria Referring Unavailable Sanchez, Aria Primary Care Unavailable Franco, Kameron Attending Unavailable Robotham, Rufina Attending Unavailable Sanchez, Aria Primary Care Unavailable Sanchez, Aria Referring Unavailable Franco, [place] Attending Unavailable Franco, [place] Referring Unavailable Sanchez, Aria Primary Care Unavailable Sanchez, Aria Primary Care Unavailable Franco, Kameron Attending Unavailable Rufina Godinez Attending Unavailable Sanchez, Aria Referring Unavailable Sanchez, Aria Primary Care Unavailable Sanchez, Aria Primary Care Unavailable Sanchez, Aria Referring Unavailable Sanchez, Aria Attending Unavailable Sanchez, Aria Primary Care Unavailable Franco, [place] Attending Unavailable Sanchez, Aria Primary Care Unavailable Rico Martinez Attending Unavailable Sanchez, Aria Referring Unavailable Allergies Allergy Classification Reported Allergen(s) Allergy Type Date of Onset Reaction(s) Facility (14 sources) Acetaminophen Drug Allergy 06-10-20 N/V [facility] (17 sources) buPROPion; Translations: [bupropion HCl] Drug Allergy 06-10-20 [facility] Comment on above: [facility] (16 sources) buPROPion Drug Allergy 06-10-20 [facility] (16 sources) HYDROcodone Drug Allergy 06-10-20 N/V [facility] (16 sources) HYDROmorphone Drug Allergy 06-10-20 Drug-induced constipation with proper administration [facility] (3 sources) Shellfish Allergy to substance 06-10-20 [facility] (7 sources) buPROPion; Translations: [BUPROPION (SMOKING DETER)] Drug Allergy 05-25-20 05 [facility] (18 sources) Contrast media; Translations: [RED DYE] Propensity to adverse reactions 05-25-20 05 Itching [facility] Work Phone: (7 sources) hydroCHLOROthiaz shaila; Translations: [HYDROCHLOROTHIA ZIDE] Drug Allergy 11-07-19 09 [facility] Work Phone: (4 sources) Shellfish; Translations: [SHELLFISH] Food Allergy 10-03-19 08 [facility] (1 source) Acetaminophen Drug Allergy 03-28-20 25 [facility] (1 source) buPROPion Drug Allergy 04-10-20 25 [facility] (1 source) HYDROcodone Drug Allergy 04-10-20 25 [facility] (1 source) HYDROmorphone Drug Allergy 04-10-20 [facility] Medications Current Medications Medication Drug Class(es) Dates Sig (Normalized) Sig (Original) acetaminophen 325 mg oral tablet (5 sources) Start: 04-11-2025 take 2 tablets by mouth every six hours as needed for pain Acetaminophen 325 mg Tablet Active 650 mg PO EVERY 6 HOURS NEEDED as needed for Pain Score 1-10 0 0 April 11, 2025 12:00am Start: 03-12-2024 End: 04-12-2024 take 3 tablets by mouth four times daily acetaminophen (TYLENOL) 325 mg tablet Take 3 tablets by mouth four times daily. 0 03/12/2024 04/12/2024 Discontinued atorvastatin 40 mg oral tablet (20 sources) HMG-CoA Reductase Inhibitor Start: 06-03-2020 End: 07-12-2024 take 1 tablet by mouth at bedtime Atorvastatin 40 mg tablet Active 40 mg PO AT BEDTIME 90 3 July 12, 2024 11:45am CHOLESTEROL benzonatate 200 mg oral capsule (20 sources) Non-narcotic Antitussive Start: 03-16-2018 take 1 capsule by mouth three times daily as needed for cough Benzonatate 200 mg capsule Active 200 mg PO THREE TIMES A DAY as needed for cough 20 0 March 16, 2018 12:00am calcium carbonate 800 mg / famotidine 10 mg / magnesium hydroxide 165 mg chewable tablet (20 sources) Histamine-2 Receptor Antagonist Start: 06-03-2020 End: 07-12-2024 Famotidine-Ca Carb-Mag Hydrox (Pepcid Complete) 10-800-165 mg tablet,chewable Active 1 {tbl} PO DAILY as needed for indigestion July 12, 2024 11:44am CENTRUM SILVER TAB (5 sources) Start: 07-07-2005 CENTRUM SILVER TAB Take one(1) tablet daily. 0 07/07/2005 Active cephalexin 500 mg oral capsule (2 sources) Cephalosporin Antibacterial Start: 04-10-2025 take 1 capsule by mouth every eight hours Cephalexin 500 mg capsule Active 500 mg PO Q8H 42 14 0 April 10, 2025 12:00am docusate sodium 100 mg oral capsule (2 sources) Start: 04-11-2025 take 1 capsule by mouth twice daily Docusate Sodium (Colace) 100 mg capsule Active 100 mg PO TWICE A DAY 10 0 April 11, 2025 12:00am famotidine/Ca carb/mag hydrox (PEPCID COMPLETE ORAL) (5 sources) take 1 tablet by mouth at bedtime as needed for gastroesophageal reflux disease famotidine/Ca carb/mag hydrox (PEPCID COMPLETE ORAL) Take 1 tablet by mouth at bedtime as needed (heartburn). 0 Active KRILL OIL ORAL (5 sources) take 1 capsule by mouth once daily at bedtime KRILL OIL ORAL Take 1 capsule by mouth daily at bedtime. 0 Active levothyroxine sodium 0.075 mg oral tablet (20 sources) l-Thyroxine Start: 03-27-2025 take 1 tablet by mouth once daily Levothyroxine 75 mcg tablet Active 75 ug PO DAILY March 27, 2025 12:00am THYROID Start: 03-06-2025 End: 03-27-2025 take 3 tablets by mouth once daily Levothyroxine 25 mcg tablet Discontinued 75 ug PO DAILY March 06, 2025 2:57pm March 27, 2025 2:24pm Start: 06-10-2021 End: 03-06-2025 take 2 tablets by mouth once daily Levothyroxine 25 mcg tablet Discontinued 50 ug PO DAILY June 10, 2021 11:06am March 06, 2025 2:57pm Start: 06-10-2021 take 50 ug by mouth once daily Levothyroxine Active 50 MCG PO DAILY June 10, 2021 11:06am Start: 06-03-2020 End: 06-10-2021 take 1 tablet by mouth once daily Levothyroxine 25 mcg tablet Discontinued 25 ug PO DAILY June 03, 2020 12:00am June 10, 2021 11:07am take 1 capsule by mo ut once daily before breakfast levothyroxine 25 mcg cap Take 25 mcg by mouth daily before breakfast. 0 Active melatonin 10 mg oral capsule (20 sources) Start: 03-06-2025 take 2 capsules by mouth at bedtime as needed Melatonin 10 mg capsule Active 20 mg PO BEDTIME as needed for insomnia March 06, 2025 12:00am Start: 03-06-2025 take 1 capsule by mo uth at bedtime as needed Melatonin 10 mg capsule Active 10 mg PO BEDTIME as needed for insomnia March 06, 2025 12:00am Start: 06-03-2020 End: 06-10-2021 Melatonin 5 mg capsule Disco ntinued mg PO June 03, 2020 12:00am June 10, 2021 11:07am Start: 06-03-2020 End: 06-10-2021 Melatonin Discontinued MG PO June 03, 2020 12:00am June 10, 2021 11:07am MELATONIN ORAL T sadie by mouth. 0 Active 24 hr metoprolol succinate 25 mg extended release oral tablet (20 sources) beta-Adrenergic Ana Start: 03-14-2024 End: 07-12-2024 take 1 tablet by mouth once daily Metoprolol Succinate (Toprol Xl) 25 mg tablet extended release 24 hr Active 25 mg PO DAILY 90 July 12, 2024 11:45am BP Start: 05-27-2016 End: 03-14-2024 take 1 tablet by mouth once daily Metoprolol Tartrate 50 MG tablet Discontinued 50 mg PO DAILY May 27, 2016 12:00am March 14, 2024 2:23pm Start: 12-07-2011 End: 03-14-2024 take 1 tablet by mouth once daily Metoprolol Succinate 50 mg tablet extended release 24 hr Discontinued 50 mg PO daily March 14, 2024 12:00am March 14, 2024 3:13pm Wocbnnsi-Bts-Idey-Fa-Lutein (2 sources) Start: 05-27-2016 Qymydtol-Gcn-M vyb-Gc-Rlmlzn Active 1 EACH PO DAILY May 26, 2016 11:00pm Start: 05-27-2016 Lusnaqad-Web-V lmb-Ux-Lsxcwz Active 1 EACH PO DAILY May 27, 2016 12:00am Wsphdbrc-Blq-Itdn-Fa-Vit K-Lut (1 source) Start: 05-27-2016 Msapxwvl-Vyr-Wkqn-Fa-Vit K-Lut Active 1 EACH PO DAILY May 27, 2016 12:00am Ujkmtbkl-Nnc-Lmhh-Fa-Vit K-Lut 1 EACH tablet (13 sources) Start: 05-27-2016 take 1 tablet by mouth once daily Dxaofvhr-Yzv-Ephv-Fa-Vit K-Lut 1 EACH tablet Active 1 NMA PO DAILY May 27, 2016 12:00am SUPPLEMENT Start: 05-27-2016 take 1 tablet by shaneka th once daily Dnvnvwkl-Uyq-Yqon-Fa-Vit K-Lut 1 EACH tablet Active 1 NMA PO DAILY May 27, 2016 12:00am Rowley-3 Fatty Acids (3 sources) Start: 05-27-2016 take 1000 mg by mout h once daily Rowley-3 Fatty Acids Active 1000 MG PO DAILY May 26, 2016 11:00pm Start: 05-27-2016 take 1000 mg by mouth once gi ly Rowley-3 Fatty Acids Active 1000 MG PO DAILY May 27, 2016 12:00am traMADol hydrochloride 50 mg oral tablet (2 sources) Opioid Agonist Start: 04-11-2025 take 1 tablet by mouth every eight hours as needed for pain Tramadol 50 mg tablet Active 50 mg PO Q8H as needed for pain 10 3 0 April 11, 2025 12:00am Vitamin B Complex-Folic Acid (3 sources) Start: 05-27-2016 take 0.4 mg by mouth once daily Vitamin B Complex-Folic Acid Active 0.4 MG PO DAILY May 26, 2016 11:00pm Start: 05-27-2016 take 0.4 mg by mouth once daily Vitamin B Complex-Folic Acid Active 0.4 MG PO DAILY May 27, 2016 12:00am Completed/Discontinued Medications Medication Drug Class(es) Dates Sig (Normalized) Sig (Original) Antiarthritic Combination No.2 (Glucosamine-Chondroi tin) 900 mg tablet (16 sources) Start: 06-04-2020 End: 03-27-2025 Antiarthritic Combination No.2 (Glucosamine-Chondro itin) 900 mg tablet Discontinued mg PO June 04, 2020 12:00am March 27, 2025 2:26pm Start: 06-04-2020 Antiarthritic Combination No.2 (Glucosamine-Chondroitin) 900 mg tablet Active mg PO June 04, 2020 12:00am Start: 06-04-2020 Antiarthritic Combination No.2 (Glucosamine-Chondroitin) 900 mg tablet Active MG PO June 03, 2020 11:00pm Start: 06-04-2020 Antiarthritic Combination No.2 (Glucosamine-Chondroitin) 900 mg tablet Active MG PO June 04, 2020 12:00am aspirin 81 mg delayed release oral tablet (16 sources) Platelet Aggregation Inhibitor, Nonsteroidal Anti-inflammatory Drug Start: 05-27-2016 End: 06-03-2020 take 1 tablet by mouth once daily Aspirin 81 MG tablet Discontinued 81 mg PO DAILY@0800 May 27, 2016 12:00am June 03, 2020 8:50pm biotin 10 mg oral capsule (16 sources) Start: 05-27-2016 End: 06-05-2019 take 2 capsules by mouth once daily Biotin 10,000 MCG capsule Discontinued 46359 ug PO DAILY May 27, 2016 12:00am June 05, 2019 1:08pm Start: 05-27-2016 End: 06-05-2019 take 83966 ug by mouth once daily Biotin Discontinued 71729 MCG PO DAILY May 27, 2016 12:00am June 05, 2019 1:08pm Ca Carb-D3-Mag Qi-Azu-Shil-Z n (3 sources) Start: 05-27-2016 End: 06-05-2019 Ca Carb-D3-Mag Hw-Iqq-Urmy-Z n Discontinued 1 EACH PO DAILY May 26, 2016 11:00pm June 05, 2019 12:08pm Start: 05-27-2016 End: 06-05-2019 Ca Carb-D3-Mag Lj-Lpb-Buvm-Z n Discontinued 1 EACH PO DAILY May 27, 2016 12:00am June 05, 2019 1:08pm Ca Carb-D3-Mag Br-Sbm-Jdic-Zn 1 EACH tablet (13 sources) Start: 05-27-2016 End: 06-05-2019 take 1 tablet by mouth once daily Ca Carb-D3-Mag Xd-Akr-Ejcb-Zn 1 EACH tablet Discontinued 1 NMA PO DAILY May 27, 2016 12:00am June 05, 2019 1:08pm calcium carbonate 1500 mg / cholecalciferol 200 unt oral tablet (3 sources) Vitamin D Start: 05-13-2010 End: 04-12-2024 calcium carbonate/vitamin d3(CALCIUM 600 + D(3) 600 MG (1,500)-200 UNIT TAB) Take one(1) tablet twice daily. 0 05/13/2010 04/12/2024 Discontinued cartilage/collagen II/hyaluron (MOVE FREE ULTRA ORAL) (3 sources) End: 04-12-2024 take 1 capsule by mouth once daily cartilage/collagen II/hyaluron (MOVE FREE ULTRA ORAL) Take 1 capsule by mouth once daily. 0 04/12/2024 Discontinued take 1 capsule by mouth once gi ly cartilage/collagen II/hyaluron (MOVE FREE ULTRA ORAL) Take 1 capsule by mouth once daily. 0 Active cholecalciferol 0.025 mg oral tablet (20 sources) Vitamin D Start: 06-10-2021 End: 03-14-2024 take 1 tablet by mouth once daily Cholecalciferol (Vitamin D3) 25 mcg (1,000 unit) tablet Discontinued 5000 U PO DAILY June 10, 2021 11:06am March 14, 2024 2:24pm Start: 05-27-2016 End: 06-10-2021 take 1 tablet by mouth once daily Cholecalciferol (Vitamin D3) 1,000 UNIT tablet Discontinued 1000 U PO DAILY May 27, 2016 12:00am June 10, 2021 11:07am coconut oil 1000 mg oral capsule (10 sources) Start: 03-06-2025 End: 03-27-2025 Coconut Oil 1,000 mg capsule Discontinued mg PO March 06, 2025 12:00am March 27, 2025 2:26pm estradiol 0.1 mg/ml vaginal cream (3 sources) Estrogen Start: 10-29-2011 End: 04-12-2024 estradiol (ESTRACE) 0.01 % (0.1 mg/g) VAGINAL vaginal cream Indications: Postmenopausal atrophic vaginitis Use 1 g vaginally. at bedtime 1-3times weekly 3 Tube 3 10/29/2011 04/12/2024 Discontinued Flavoring Agent (Bulk) (3 sources) Start: 05-27-2016 End: 06-05-2019 Flavoring Agent (Bulk) Discontinued 3.7 ML MC DAILY May 26, 2016 11:00pm June 05, 2019 12:09pm Start: 05-27-2016 End: 06-05-2019 Flavoring Agent (Bulk) Disco ntinued 3.7 ML MC DAILY May 27, 2016 12:00am June 05, 2019 1:09pm Flavoring Agent (Bulk) 3.7 ML oil (13 sources) Start: 05-27-2016 End: 06-05-2019 Flavoring Agent (Bulk) 3.7 ML oil Discontinued 3.7 mL MC DAILY May 27, 2016 12:00am June 05, 2019 1:09pm levETIRAcetam 500 mg oral tablet (3 sources) Start: 03-12-2024 End: 04-12-2024 take 1 tablet by mouth twice daily levETIRAcetam (KEPPRA) 500 mg tablet Take 1 tablet by mouth two times a day for 8 doses. 8 tablet 0 03/12/2024 04/12/2024 Discontinued Rowley-3 Fatty Acids 1,000 MG capsule (13 sources) Start: 05-27-2016 End: 03-27-2025 take 1 capsule by mouth once daily Rowley-3 Fatty Acids 1,000 MG capsule Discontinued 1000 mg PO DAILY May 27, 2016 12:00am March 27, 2025 2:27pm Start: 05-27-2016 take 1 capsule by [facility] once daily Rowley-3 Fatty Acids 1,000 MG capsule Active 1000 mg PO DAILY May 27, 2016 12:00am Prevagen (16 sources) Start: 06-04-2020 End: 06-10-2021 Prevagen Discontinued PO GI LY 0 June 04, 2020 12:00am June 10, 2021 11:07am Start: 06-04-2020 End: 06-10-2021 Prevagen Discontinued PO GI LY June 03, 2020 11:00pm June 10, 2021 10:07am Start: 06-04-2020 End: 06-10-2021 Prevagen Discontinued PO GI LY June 04, 2020 12:00am June 10, 2021 11:07am rosuvastatin calcium 40 mg oral tablet (19 sources) HMG-CoA Reductase Inhibitor Start: 09-02-2014 End: 06-03-2020 take 2 tablets by mouth once daily Rosuvastatin 40 MG tablet Discontinued 80 mg PO DAILY September 02, 2014 1:00am June 03, 2020 8:49pm Start: 09-02-2014 End: 06-03-2020 take 80 mg by mouth once daily Rosuvastatin Discontinu ed 80 MG PO DAILY September 02, 2014 1:00am June 03, 2020 8:49pm Start: 12-07-2011 End: 04-12-2024 take 1 tablet by mouth once daily rosuvastatin (CRESTOR) 20 mg ORAL tablet Indications: Other and unspecified hyperlipidemia Take 1 tablet by mouth once daily. 0 12/07/2011 04/12/2024 Discontinued ubidecarenone 50 mg chewable tablet (16 sources) Start: 05-27-2016 End: 06-05-2019 take 10 tablets by mouth once daily Coenzyme Q10 50 MG tablet,chewable Discontinued 200 mg PO DAILY May 27, 2016 12:00am June 05, 2019 1:08pm Vitamin B Complex (3 sources) Start: 05-13-2010 End: 04-12-2024 vitamin b complex(B COMPLEX 1 TAB) Take one(1) tablet daily. 0 05/13/2010 04/12/2024 Discontinued Start: 05-13-2010 vitamin b comp louisa(B COMPLEX 1 TAB) Take one(1) tablet daily. 0 05/13/2010 Active Vitamin B Complex-Folic Acid 0.4 MG tablet (13 sources) Start: 05-27-2016 End: 03-14-2024 take 1 tablet by mouth once daily Vitamin B Complex-Folic Acid 0.4 MG tablet Discontinued 0.4 mg PO DAILY May 27, 2016 12:00am March 14, 2024 2:24pm Problems Active Problems Problem Classification Problem Date Documented Da te Episodic/Chronic Acquired foot deformities (5 sources) Acquired hallux malleus; Translations: [Other hammer toe(s) (acquired), unspecified foot] Onset: 09-10-2008 09-10-2008 Chronic Acute cerebrovascular disease (20 sources) Hematoma of subdural space of neuraxis; Translations: [Subdural hematoma] Onset: 03-09-2024 03-11-2024 Chronic Anxiety disorders (5 sources) Generalized anxiety disorder; Translations: [Generalized anxiety disorder] 06-10-2009 Chronic Cancer of breast (20 sources) Malignant tumor of breast ; Translations: [Malignant neoplasm of unspecified site of right female breast] Onset: 09-26-1983 06-04-2020 Chronic Comment on above: 1985 mastectomy Left Chronic obstructive pulmonary disease and bronchiectasis (16 sources) Bronchitis; Translations: [Bronchitis, not specified as acute or chronic] 06-03-2020 Episodic Conduction disorders (17 sources) Right bundle branch block; Translations: [Unspecified right bundle-branch block] Onset: 03-25-2025 06-03-2020 Chronic Disorders of lipid metabolism (20 sources) Hyperlipidemia; Translations: [Hyperlipidemia, unspecified] 06-03-2020 Chronic E Codes: Fall (18 sources) Fall; Translations: [Unspecified fall, initial encounter] Onset: 03-11-2024 03-11-2024 Episodic E Codes: Fall (1 source) Fall Onset: 03-09-2024 Essential hypertension (20 sources) Essential hypertension; Translations: [Essential (primary) hypertension] Onset: 02-08-2025 Resolved: 11-07-2008 06-03-2020 Chronic Comment on above: CONTROLLED ON MED Heart valve disorders (20 sources) Aortic stenosis, non-rheumatic ; Translations: [Nonrheumatic aortic (valve) stenosis] 06-10-2021 Chronic Hypertension with complications and secondary hypertension (1 source) Hypertensive chronic kidney disease with stage 1 through stage 4 chronic kidney disease, or unspecified chronic kidney disease; Translations: [Hypertensive chronic kidney disease with stage 1 through stage 4 chronic kidney disease, or unspecified chronic kidney disease] Onset: 09-03-2024 Chronic Nonmalignant breast conditions (20 sources) Breast lump; Translations: [Unspecified lump in the left breast, unspecified quadrant] Onset: 02-26-2025 03-07-2025 Episodic Nonspecific chest pain (20 sources) Tight chest; Translations: [Other chest pain] 06-04-2020 Episodic Open wounds of extremities (13 sources) Laceration of left middle finger; Translations: [Laceration without foreign body of left middle finger without damage to nail, initial encounter] 05-01-2024 Episodic Other bone disease and musculoskeletal deformities (16 sources) Somatic dysfunction of rib; Translations: [Segmental and somatic dysfunction of rib cage] 06-03-2020 Episodic Other circulatory disease (20 sources) History of cardiovascular surgery; Translations: [Presence of other cardiac implants and grafts] 03-21-2024 Chronic Comment on above: Pfeiffer ILR implanted [facility] on 03/20/24 Pfeiffer ILR implanted [facility] on 03/20/24, REMOVED 03/18/2025 Other circulatory disease (1 source) Presence of other cardiac implants and grafts; Translations: [Presence of other cardiac implants and grafts] Onset: 03-07-2025 Chronic Other connective tissue disease (1 source) Other specified soft tissue disorders; Translations: [Other specified soft tissue disorders] Onset: 04-19-2025 Episodic Other screening for suspected conditions (not mental disorders or infectious disease) (6 sources) Liver function tests abnormal; Translations: [Abnormal results of liver function studies] Onset: 02-19-2025 Resolved: 11-07-2008 11-07-2008 Episodic Residual codes; unclassified (10 sources) Insomnia; Translations: [Insomnia, unspecified] Onset: 06-10-2009 06-10-2009 Episodic Superficial injury; contusion (13 sources) Hematoma of scalp; Translations: [Contusion of scalp, initial encounter] 03-17-2024 Episodic Syncope (20 sources) Syncope; Translations: [Syncope and collapse] 03-17-2024 Episodic Thyroid disorders (5 sources) Hypothyroidism; Translations: [Hypothyroidism, unspecified] Onset: 03-28-2024 03-28-2024 Chronic Unclassified (1 source) SDH (subdural hematoma) (HCC); Translations: [SDH (subdural hematoma) (HCC)] Onset: 04-09-2024 Urinary tract infections (5 sources) Acute cystitis; Translations: [Acute cystitis without hematuria] Onset: 03-11-2024 03-11-2024 Episodic Past or Other Problems Problem Classification Problem Date Documented Date Episodic/Chronic Diabetes mellitus without complication (5 sources) Impaired fasting glycemia; Translations: [Impaired fasting glucose] Onset: 06-10-2009 06-10-2009 Episodic Other congenital anomalies (5 sources) Congenital anomaly of skin; Translations: [Other specified congenital malformations of skin] Onset: 09-10-2008 Resolved: 06-10-2009 06-10-2009 Chronic Other lower respiratory disease (5 sources) Respiratory auscultation finding; Translations: [Unspecified abnormalities of breathing] Onset: 06-14-2009 06-14-2009 Episodic Results Test Name Value Interpretation Reference Range Facility CBC W/Diff, Automatedon 03-27 Absolute Lymph 1.19 X10 3/uL Normal 0.83-4.51 [facility] Comment on above: Order Comment: Order Date: 04/19/25Order Info: [id number] - CBCD Performed By: #### L [id number], [id number], [id number], [id number], [id number] ####[facility] [id number] [facility], [address] Absolute Neut 3.7 X10 3/uL Normal 2.0-7.7 [facility] Comment on above: Order Comment: Order Date: 04/19/25Order Info: [id number] - CBCD Performed By: #### L [id number], [id number], [id number], [id number], [id number] ####[facility] [facility] [address] [place], [address] Basophils/100 WBC (Bld) 0.9 % Normal 0-1 [facility] Comment on above: Order Comment: Order Date: 04/19/25Order Info: 0184-1 - CBCD Performed By: #### L 501.27725, L501.9520, L506.0400, L500.4050, L100.0100 ####[facility] [address] [place], [address] Eosinophils/100 WBC (Bld) 2.8 % Normal 0-5 [facility] Comment on above: Order Comment: Order Date: 04/19/25Order Info: 0184-1 - CBCD Performed By: #### L 501.64234, L501.9520, L506.0400, L500.4050, L100.0100 ####[facility] [address] [place], [address] Erythrocyte distribution width (RBC) [Ratio] 12.9 % Normal 11.6-14.6 [facility] Comment on above: Order Comment: Order Date: 04/19/25Order Info: 0184-1 - CBCD Performed By: #### L 501.14280, L501.9520, L506.0400, L500.4050, L100.0100 ####[facility] [address] [place], [address] Hematocrit (Bld) [Volume fraction] 40.7 % Normal 37-47 [facility] Comment on above: Order Comment: Order Date: 04/19/25Order Info: 0184-1 - CBCD Performed By: #### L 501.80710, L501.9520, L506.0400, L500.4050, L100.0100 ####[facility] [address] [place], [address] Hemoglobin (Bld) [Mass/Vol] 13.1 g/dL Normal 12.0-15.0 [facility] Comment on above: Order Comment: Order Date: 04/19/25Order Info: 0184-1 - CBCD Performed By: #### L 501.54733, L501.9520, L506.0400, L500.4050, L100.0100 ####[facility] [address] [place], [address] IG% 0.300 Normal 0.0-0.9 [facility] Comment on above: Order Comment: Order Date: 04/19/25Order Info: 0184-1 - CBCD Result Comment: IG% - Immature Granulocytes (promyelocytes, myelocytes and metamyelocytes) > 1% indicates that a LEFT SHIFT is Present. Performed By: #### L 501.33260, L501.9520, L506.0400, L500.4050, L100.0100 ####[facility] [address] [place], [address] Lymphocytes/100 WBC (Bld) 20.6 % Normal 19-41 [facility] Comment on above: Order Comment: Order Date: 04/19/25Order Info: 0184- - CBCD Performed By: #### L 501.71824, L501.9520, L506.0400, L500.4050, L100.0100 ####[facility] [address] [place], [address] MCH (RBC) [Entitic mass] 33.0 pg High 27.0-32.0 [facility] Comment on above: Order Comment: Order Date: 04/19/25Order Info: 0184-1 - CBCD Performed By: #### L 501.36008, L501.9520, L506.0400, L500.4050, L100.0100 ####[facility] [address] [place], [address] MCHC (RBC) [Mass/Vol] 32.2 g/dL Normal 32-36 [facility] Comment on above: Order Comment: Order Date: 04/19/25Order Info: 0184-1 - CBCD Performed By: #### L 501.02030, L501.9520, L506.0400, L500.4050, L100.0100 ####[facility] [address] [place], [address] MCV (RBC) [Entitic vol] 102.5 fL High 81-99 [facility] Comment on above: Order Comment: Order Date: 04/19/25Order Info: 0184-1 - CBCD Performed By: #### L 501.26903, L501.9520, L506.0400, L500.4050, L100.0100 ####[facility] [address] [place], [address] Monocytes/100 WBC (Bld) 11.6 % High 0-10 [facility] Comment on above: Order Comment: Order Date: 04/19/25Order Info: 018- - CBCD Performed By: #### L 501.42200, L501.9520, L506.0400, L500.4050, L100.0100 ####[facility] [address] [place], [address] Neutrophils/100 WBC (Bld) 63.8 % Normal 47-70 [facility] Comment on above: Order Comment: Order Date: 04/19/25Order Info: 018- - CBCD Performed By: #### L 501.32369, L501.9520, L506.0400, L500.4050, L100.0100 ####[facility] [address] [place], [address] Nucleated RBC (Bld) [#/Vol] 0 10*3/uL Normal 0-5 [facility] Comment on above: Order Comment: Order Date: 04/19/25Order Info: 018-1 - CBCD Performed By: #### L 501.02141, L501.9520, L506.0400, L500.4050, L100.0100 ####[facility] [address] [place], [address] Platelet mean volume (Bld) [Entitic vol] 9.4 fL Normal 6.2-12.0 [facility] Comment on above: Order Comment: Order Date: 04/19/25Order Info: 0184-1 - CBCD Performed By: #### L 501.74534, L501.9520, L506.0400, L500.4050, L100.0100 ####[facility] [address] [place], [address] Platelets (Bld) [#/Vol] 261 10*3/uL Normal 150-450 [facility] Comment on above: Order Comment: Order Date: 04/19/25Order Info: 018- - CBCD Performed By: #### L 501.20245, L501.9520, L506.0400, L500.4050, L100.0100 ####[facility] [address] [place], [address] RBC (Bld) [#/Vol] 3.97 10*6/uL Low 4.2-5.4 [facility] Comment on above: Order Comment: Order Date: 04/19/25Order Info: 0184- - CBCD Performed By: #### L 501.24515, L501.9520, L506.0400, L500.4050, L100.0100 ####[facility] [address] [place], [address] RDW SD 49.1 fl High 35.1-43.9 [facility] Comment on above: Order Comment: Order Date: 04/19/25Order Info: 0184-1 - CBCD Performed By: #### L 501.04436, L501.9520, L506.0400, L500.4050, L100.0100 ####[facility] [address] [place], [address] WBC (Bld) [#/Vol] 5.8 10*3/uL Normal 4.4-11.0 [facility] Comment on above: Order Comment: Order Date: 04/19/25Order Info: 0184-1 - CBCD Performed By: #### L 501.23701, L501.9520, L506.0400, L500.4050, L100.0100 ####[facility] [address] [place], [address] Comprehensive Metabolic Prof ilon 04-19-2025 Albumin [Mass/Vol] 4.0 g/dL Normal 3.4-4.8 [facility] Comment on above: Order Comment: Order Date: 04/19/25Order Info: 0786-1 - CMPOrder Info: 3051-0 - C6IUacqx Info: 3016-3 - TSHOrder Info: 3024-7 - T4F Performed By: #### L 501.64751, L501.9520, L506.0400, L500.4050, L100.0100 ####[facility] [address] [place], [address] Albumin/Globulin [Mass ratio] 1.6 {ratio} Normal 0.9-2.4 [facility] Comment on above: Order Comment: Order Date: 04/19/25Order Info: 0786-1 - CMPOrder Info: 3051-0 - E8JRavkj Info: 3016-3 - TSHOrder Info: 3024-7 - T4F Performed By: #### L 501.73554, L501.9520, L506.0400, L500.4050, L100.0100 ####[facility] [address] [place], [address] ALK PHOS 86 U/L Normal 35-104 [facility] Comment on above: Order Comment: Order Date: 04/19/25Order Info: 0786-1 - CMPOrder Info: 3051-0 - R0ZWcynp Info: 3016-3 - TSHOrder Info: 3024-7 - T4F Performed By: #### L 501.63998, L501.9520, L506.0400, L500.4050, L100.0100 ####[facility] [address] [place], [address] ALT [Catalytic activity/Vol] 18 U/L Normal <=34 [facility] Comment on above: Order Comment: Order Date: 04/19/25Order Info: 0786-1 - CMPOrder Info: 3051-0 - U8EGjegh Info: 3016-3 - TSHOrder Info: 3024-7 - T4F Performed By: #### L 501.48961, L501.9520, L506.0400, L500.4050, L100.0100 ####[facility] [address] [place], [address] AST [Catalytic activity/Vol] 26 U/L Normal <=31 [facility] Comment on above: Order Comment: Order Date: 04/19/25Order Info: 0786-1 - CMPOrder Info: 3051-0 - J4VHotme Info: 3016-3 - TSHOrder Info: 3024-7 - T4F Performed By: #### L 501.04465, L501.9520, L506.0400, L500.4050, L100.0100 ####[facility] [address] [place], [address] Bilirubin [Mass/Vol] 0.51 mg/dL Normal 0.00-1.30 [facility] Comment on above: Order Comment: Order Date: 04/19/25Order Info: 0786-1 - CMPOrder Info: 3051-0 - Y5HQdyku Info: 3016-3 - TSHOrder Info: 3024-7 - T4F Performed By: #### L 501.48283, L501.9520, L506.0400, L500.4050, L100.0100 ####[facility] [address] [place], [address] BUN/CRE 15.3 RATIO Normal 10-20 [facility] Comment on above: Order Comment: Order Date: 04/19/25Order Info: 0786-1 - CMPOrder Info: 3051-0 - W1CVxxbu Info: 3016-3 - TSHOrder Info: 3024-7 - T4F Performed By: #### L 501.40168, L501.9520, L506.0400, L500.4050, L100.0100 ####[facility] [address] [place], [address] Calcium [Mass/Vol] 9.1 mg/dL Normal 7.6-11.0 [facility] Comment on above: Order Comment: Order Date: 04/19/25Order Info: 86-1 - CMPOrder Info: 3050-0 - R8QStqlw Info: 3016-3 - TSHOrder Info: 3024-7 - T4F Performed By: #### L 501.85397, L501.9520, L506.0400, L500.4050, L100.0100 ####[facility] [address] [place], [address] Chloride [Moles/Vol] 106 mmol/L Normal 98-108 [facility] Comment on above: Order Comment: Order Date: 04/19/25Order Info: 785-1 - CMPOrder Info: 0 - Q4DTpjhn Info: 63 - TSHOrder Info: 3024-7 - T4F Performed By: #### L 501.44424, L501.9520, L506.0400, L500.4050, L100.0100 ####[facility] [address] [place], [address] CO2 [Moles/Vol] 25.9 mmol/L Normal 21.0-32.0 [facility] Comment on above: Order Comment: Order Date: 04/19/25Order Info: 0786-1 - CMPOrder Info: 3051-0 - J6FWizcx Info: 3016-3 - TSHOrder Info: 3024-7 - T4F Performed By: #### L 501.38921, L501.9520, L506.0400, L500.4050, L100.0100 ####[facility] [address] [place], [address] Creatinine [Mass/Vol] 1.09 mg/dL Normal 0.70-1.20 [facility] Comment on above: Order Comment: Order Date: 04/19/25Order Info: 0786-1 - CMPOrder Info: 3051-0 - L1IBrrzx Info: 3016-3 - TSHOrder Info: 3024-7 - T4F Performed By: #### L 501.17616, L501.9520, L506.0400, L500.4050, L100.0100 ####[facility] [address] [place], [address] GAP 10 Normal 5-15 [facility] Comment on above: Order Comment: Order Date: 04/19/25Order Info: 07 - CMPOrder Info: 0 - J1SEhvac Info: 63 - TSHOrder Info: 30247 - T4F Performed By: #### L 501.33278, L501.9520, L506.0400, L500.4050, L100.0100 ####[facility] [address] [place], [address] GFR/1.73 sq M.predicted among non-blacks MDRD (S/P/Bld) [Vol rate/Area] 52 mL/min/{1.73_m2} Low >60 [facility] Comment on above: Order Comment: Order Date: 04/19/25Order Info: 0786-1 - CMPOrder Info: 3051-0 - V2RGzoqr Info: 3016-3 - TSHOrder Info: 3024-7 - T4F Result Comment: mL/m in/1.73m2 CKD-EPI Creatinine Equation (2020) Performed By: #### L 501.90440, L501.9520, L506.0400, L500.4050, L100.0100 ####[facility] [address] [place], [address] Globulin (S) [Mass/Vol] 2.5 g/dL Normal 2.2-4.2 [facility] Comment on above: Order Comment: Order Date: 04/19/25Order Info: 0786-1 - CMPOrder Info: 3051-0 - W8ECopdp Info: 3016-3 - TSHOrder Info: 3024-7 - T4F Performed By: #### L 501.75871, L501.9520, L506.0400, L500.4050, L100.0100 ####[facility] [address] [place], [address] Glucose [Mass/Vol] 99 mg/dL Normal 70-99 [facility] Comment on above: Order Comment: Order Date: 04/19/25Order Info: 86-1 - CMPOrder Info: 3051-0 - X8HItqsf Info: 3016-3 - TSHOrder Info: 3024-7 - T4F Performed By: #### L 501.44307, L501.9520, L506.0400, L500.4050, L100.0100 ####[facility] [address] [place], [address] Potassium [Moles/Vol] 4.5 mmol/L Normal 3.3-5.1 [facility] Comment on above: Order Comment: Order Date: 04/19/25Order Info: 0786-1 - CMPOrder Info: 3051-0 - P1NTjexx Info: 3016-3 - TSHOrder Info: 3024-7 - T4F Performed By: #### L 501.27697, L501.9520, L506.0400, L500.4050, L100.0100 ####[facility] [address] [place], [address] Sodium [Moles/Vol] 142 mmol/L Normal 133-145 [facility] Comment on above: Order Comment: Order Date: 04/19/25Order Info: 0786-1 - CMPOrder Info: 3051-0 - S2TPfkwa Info: 3016-3 - TSHOrder Info: 3024-7 - T4F Performed By: #### L 501.43516, L501.9520, L506.0400, L500.4050, L100.0100 ####[facility] [address] [place], [address] T PROT 6.5 g/dL Normal 5.9-8.4 [facility] Comment on above: Order Comment: Order Date: 04/19/25Order Info: 0786-1 - CMPOrder Info: 3051-0 - R9VEmpvm Info: 3016-3 - TSHOrder Info: 3024-7 - T4F Performed By: #### L 501.42855, L501.9520, L506.0400, L500.4050, L100.0100 ####[facility] [address] [place], [address] Urea nitrogen [Mass/Vol] 17 mg/dL Normal 4-19 [facility] Comment on above: Order Comment: Order Date: 04/19/25Order Info: 785-1 - CMPOrder Info: 3051-0 - V8LSavtp Info: 3016-3 - TSHOrder Info: 3024-7 - T4F Performed By: #### L 501.45764, L501.9520, L506.0400, L500.4050, L100.0100 ####[facility] [address] [place], [address] Free T3on 04-19-2025 Free T3 [Mass/Vol] 2.3 pg/mL Normal 2.18-3.98 [facility] Comment on above: Order Comment: Order Date: 04/19/25Order Info: 0786-1 - CMPOrder Info: 3051-0 - B6KWbyni Info: 3016-3 - TSHOrder Info: 3024-7 - T4F Performed By: #### L 501.82911, L501.9520, L506.0400, L500.4050, L100.0100 ####[facility] [address] [place], [place], [address] T4 Free Directon 04-19-2025 T4 FREE DIRECT 1.50 ng/dL High 0.76-1.46 [facility] Comment on above: Order Comment: Order Date: 04/19/25Order Info: 0786-1 - CMPOrder Info: 3051-0 - S2TBlimw Info: 3016-3 - TSHOrder Info: 3024-7 - T4F Performed By: #### L 501.24284, L501.9520, L506.0400, L500.4050, L100.0100 ####[facility] [address] [place], [place], [address] Thyroid Stim Hormone (TSH)on 04-19-2025 TSH 1.450 uIU/mL Normal 0.300-4.200 [facility] Comment on above: Order Comment: Order Date: 04/19/25Order Info: 0786-1 - CMPOrder Info: 3051-0 - H1CFzdud Info: 3016-3 - TSHOrder Info: 3024-7 - T4F Performed By: #### L 501.67958, L501.9520, L506.0400, L500.4050, L100.0100 ####[facility] [address] [place], [place], [address] Plastic Surgery Visit Report on 04-18-2025 Plastic Surgery Visit Report [facility] Plastic Reconstructive Surgery [address] [place] [address] OFFICE VISIT Date of Service: 04/18/25 MR#: [id number] Acct: [id number] Name: BERRY ABAD JOVANA Rep #: [id number] : 1945 Provider: Dr. Giacomo Philip MD Age/Sex: 79/F Location: [facility] Status: Signed Intake Vital Signs 04/10/25 16:39 Height 5 ft 4 in Intake Visit Reasons: POST OP Chief Complaint: post op Accompanied by: Is patient in pain?: No Allergies bupropion HCl (From Zyban) Allergy (Severe, Verified 04/10/25 07:26) Hives red dye Allergy (Mild, Verified 04/10/25 07:26) Itching bupropion (From Zyban) Allergy (Verified 04/10/25 07:26) Hives hydrocodone (From Vicodin) Adverse Reaction (Verified 04/10/25 07:26) N/V hydromorphone Adverse Reaction (Verified 04/10/25 07:26) constipation Medications ???Medication ???Instructions ???Recorded ???Confirmed ???Type ogclqufu-cyjc-ossb 8 mg-folic 400 1 ea PO DAILY SUPPLEMENT 05/27/16 04/18/25 History mcg-K 50 mcg-lutein 300 mcg tablet benzonatate 200 mg capsule 200 mg PO TID PRN cough #20 caps 0 03/16/18 04/18/25 Rx atorvastatin 40 mg tablet 40 mg PO QHS CHOLESTEROL #90 tabs 07/12/24 04/18/25 Rx famotidine-Ca carb-mag hydrox 10 1 tab PO DAILY PRN indigestion 04/18/25 History mg-800 mg-165 mg chewable tablet (Pepcid Complete) metoprolol succinate 25 mg 25 mg PO DAILY BP #90 tabs 4 04/18/25 Rx tablet,extended release 24 hr (Toprol XL) melatonin 10 mg capsule 20 mg PO HS PRN insomnia 03/06/25 04/18/25 History levothyroxine 75 mcg tablet 75 mcg PO DAILY THYROID 03/27/25 0 04/18/25 History cephalexin 500 mg capsule 500 mg PO Q8H 2 weeks #42 caps 04/18/25 Rx acetaminophen 325 mg tablet 650 mg (2 x 325 mg) PO Q6H PRN PRN 04/11/25 04/18/25 Rx Pain Score 1-10 #0 tabs docusate sodium 100 mg capsule 100 mg PO BID #10 caps 04/11/25 Rx (Colace) tramadol 50 mg tablet 50 mg PO Q8H PRN pain 3 days #10 0 04/11/25 04/18/25 Rx tabs Have you fallen in the past year?: No Nurse's Note: pt here for post op, pt is concerned with swelling in legs/feet since surgery Subjective Details: Operative Information Date of Procedure: 04/10/25 Pre-Operative Diagnosis: Left breast cancer Post-Operative Diagnosis: Same Surgery/Procedure Performed: 1) Intraoperative assessment of mastectomy flaps with SPY (CPT: 75142) 2) Prepectoral placement of left breast tissue mechanical estimator with acellular dermal matrix (CPT: 55920) 3) Use of acellular dermal matrix (Flex HD) to reinforce/stabilize tissue mechanical estimator in the breast pocket (CPT: 24086) Current encounter, 18 April 2025: Patient doing well overall. She has taken excellent care of the drains. Medial drain ready for removal today. No fevers chills or drainage. She has also been taking her antibiotic. Pain contr olled. Objective Details: Female head transfer clerk present during my exam Left breast mound examined Jewel Diameter Gauger in correct place, no lateral displacement. Skin flaps are warm and viable, no signs of tissue necrosis or loss. Minimal bruising. Drains are serous. Coding Level of Care Code Global Post Op Diagnoses Status post mastectomy Z90.10 [facility] Medical History Wears hearing aid Wears glasses Post-menopausal Cancer Alcohol use Thyroid disease High cholesterol Injury of back Injury of head and neck Syncope Gastric reflux Former smoker History of echocardiogram History of stress test Cardiology follow-up encounter Laceration of left middle finger Status post placement of implantable loop recorder Syncope and collapse Syncope Fall Hematoma of scalp Subdural hemorrhage Non-rheumatic aortic stenosis Chest tightness Right bundle branch block (RBBB) GERD (gastroesophageal reflux disease) Cancer of right breast Hyperlipidemia Arthritis Essential (primary) hypertension Surgical History Hx of neck surgery History of breast reconstruction H/O section History of appendectomy History of mastectomy Family History Brother , age 49 Cancer lung Social History Smoking Status: Former smoker quit date: 09/26/04 pack-years: 40 Tobacco: How many years used: 40 how long ago did patient quit smokin years ago second hand exposure: Yes alcohol intake: current alcohol intake frequency: 0-2 drinks per day Alcohol type: wine Assessment and Plan (No Qualifiers) Assessment and Plan (1) Status post mastectomy: Status: Acute Plan: Patient currently with left breast [place] CPX 4+ (more content not included)... Normal [facility] Absolute lymphocyte countOrd ered By: [facility] on 04-11-2025 Lymphocytes Auto (Unsp spec) [#/Vol] 1.33 10*3/uL 0.83-4.51 [facility] Absolute neutrophil countOrd ered By: [facility] on 04-11-2025 Neutrophils (Bld) [#/Vol] 5.4 10*3/uL 2.0-7.7 [facility] Automated lymphocyte count a s percentage of total leukocytesOrdered By: [facility] on 04-11-2025 Lymphocytes/100 WBC Auto (Unsp spec) 18.0 % Low 19-41 [facility] Basophil percentageOrdered B y: [facility] on 04-11-2025 Basophils/100 WBC (Bld) 0.3 % 0-1 [facility] CBC W/Diff, Automatedon 03-26 Absolute Lymph 1.33 X10 3/uL Normal 0.83-4.51 [facility] Comment on above: Performed By: #### L 100.0100 ####[facility] [address] [place], [address] Absolute Neut 5.4 X10 3/uL Normal 2.0-7.7 [facility] Comment on above: Performed By: #### L 100.0100 ####[facility] [address] [place], [address] Basophils/100 WBC (Bld) 0.3 % Normal 0-1 [facility] Comment on above: Performed By: #### L 100.0100 ####[facility] [address] [place], [address] Eosinophils/100 WBC (Bld) 0.8 % Normal 0-5 [facility] Comment on above: Performed By: #### L 100.0100 ####[facility] [address] [place], [address] Erythrocyte distribution width (RBC) [Ratio] 13.0 % Normal 11.6-14.6 [facility] Comment on above: Performed By: #### L 100.0100 ####[facility] [address] [place], [address] Hematocrit (Bld) [Volume fraction] 37.8 % Normal 37-47 [facility] Comment on above: Performed By: #### L 100.0100 ####[facility] [address] [place], [address] Hemoglobin (Bld) [Mass/Vol] 12.4 g/dL Normal 12.0-15.0 [facility] Comment on above: Performed By: #### L 100.0100 ####[facility] [address] [place], [address] IG% 0.300 Normal 0.0-0.9 [facility] Comment on above: Result Comment: IG% - Immature Granulocytes (promyelocytes, myelocytes and metamyelocytes) > 1% indicates that a LEFT SHIFT is Present. Performed By: #### L 100.0100 ####[facility] [address] [place], [address] Lymphocytes/100 WBC (Bld) 18.0 % Low 19-41 [facility] Comment on above: Performed By: #### L 100.0100 ####[facility] [address] [place], [address] MCH (RBC) [Entitic mass] 32.6 pg High 27.0-32.0 [facility] Comment on above: Performed By: #### L 100.0100 ####[facility] [address] [place], [address] MCHC (RBC) [Mass/Vol] 32.8 g/dL Normal 32-36 [facility] Comment on above: Performed By: #### L 100.0100 ####[facility] [address] [place], [address] MCV (RBC) [Entitic vol] 99.5 fL High 81-99 [facility] Comment on above: Performed By: #### L 100.0100 ####[facility] [address] [place], [address] Monocytes/100 WBC (Bld) 7.3 % Normal 0-10 [facility] Comment on above: Performed By: #### L 100.0100 ####[facility] [address] [place], [address] Neutrophils/100 WBC (Bld) 73.3 % High 47-70 [facility] Comment on above: Performed By: #### L 100.0100 ####[facility] [address] [place], [address] Nucleated RBC (Bld) [#/Vol] 0 10*3/uL Normal 0-5 [facility] Comment on above: Performed By: #### L 100.0100 ####[facility] [address] [place], [address] Platelet mean volume (Bld) [Entitic vol] 9.5 fL Normal 6.2-12.0 [facility] Comment on above: Performed By: #### L 100.0100 ####[facility] [address] [place], [address] Platelets (Bld) [#/Vol] 199 10*3/uL Normal 150-450 [facility] Comment on above: Performed By: #### L 100.0100 ####[facility] [address] [place], [address] RBC (Bld) [#/Vol] 3.80 10*6/uL Low 4.2-5.4 [facility] Comment on above: Performed By: #### L 100.0100 ####[facility] [address] [place], [address] RDW SD 46.8 fl High 35.1-43.9 [facility] Comment on above: Performed By: #### L 100.0100 ####[facility] [address] [place], [address] WBC (Bld) [#/Vol] 7.4 10*3/uL Normal 4.4-11.0 [facility] Comment on above: Performed By: #### L 100.0100 ####[facility] [id number] [place], [address] Discharge Instructionon 03-26 Discharge Instruction [facility] Medical Records Department [address] [place] [address] Instructions for Home/Discharge Instructions 04/11/25 0721 MR#: [id number] Acct: [id number] Name: BERRY ABAD JOVANA Rep #: [id number] : 1945 79 From: Yajaira COOK PA-C PCP: Dr. Aria Sanchez MD [place] [facility] Inst[place] DC O2, CPAP, BIPAP needs Home O2 Discharge instructions: No Dressing / Incision Discharge Activity: May Not Drive (5 days) and May Shower Lifting Restrictions: No lifting greater than 5 pounds Dressing / Incision Call your doctor if your incision/area has: Continuous Slow Oozing, Sudden Increased Bleeding, Increased Pain/ Swelling, Increased Redness, Foul Smelling Discharge and Swelling at the incision site Call your doctor if you observe: Fever of 101 or Higher Suture Line Care: Avoid Pulling/Pushing and Avoid Pinching/Bending Cleanse incision/area with: Soap Water Follow Up Care Please Follow Up With: Rufina Godinez MD When: April 17 at 2:30 pm. Contact our office at [phone], option #4 for a nurse Test Results: Test results from this visit will be discussed in further detail at your follow-up appointment, if applicable. Discharge Plan Admission Primary Reason for Your Visit: S/p left breast mastectomy with sentinel lymph biopsy and skin sparing Attending Provider: Rufina Godinez Primary Care Provider: Aria Sanchez Consulting Providers: Giacomo Philip Instructions Additional Instructions / Restrictions: Breast tissue mechanical estimator placement Instructions for My Care at Home or Healthcare Facility The following instructions will help you know what to expect in the days following surgery. These are general instructions. Your surgeon and therapist may give you special instructions, which vary to some degree based on your specific procedure -- follow those as directed. Do not, however, hesitate to call if you have any questions or concerns. Splint Care/Dressing Care/Wound Care * Dressings - You may have a dressing over the operative site. * If the dressing feels too tight after you get home, it is ok to gently pull on the dressing to stretch it out/loosen it. * Do not put pressure over the breast incision site. Wear a loose bra with padding, no rubbing on the incision * Avoid smoking or other tobacco products. Smoking tobacco impairs wound healing and increases the risks of post-operative complications. * Tape over your incisions (if present) will fall off on its own ??? Activities * For the first 4 weeks after surgery, try to balance your activity, allowing time for rest. * Avoid lifting, pushing, or pulling anything over 5 pounds. * Do not drive or operate heavy machinery within 24 hrs of surgery or while taking narcotic pain medication.??? Pain Control/Medications * If you received an anesthetic block, your hand or arm may be numb for several hours. You will be discharged to home with medications, including an oral pain medication (analgesic). Rest and elevation are still one of the most important factors for pain control. Take your pain medication as needed, but do not wait for the pain to become out of control. * For severe pain, you may take prescription pain medication as directed, but please note that this may also contain Tylenol (e.g. Percocet). Do not take more than 4000mg of Tylenol (acetaminophen) from all sources daily.??? * Pain medication may cause some lethargy, nausea, and or constipation. You should not drive/operate dangerous machinery while taking these medications. If these or other symptoms become significantly problematic, please your surgeon's office. * If prescribed oral antibiotics (Keflex, Clindamycin, or others), please take prescription for full duration as instructed. You should not have any pills remaining once completed (refills are written for your convenience should the course need to be extended, but generally they are not required). Diet (what I can eat): Resume normal diet Follow up * You will be seen (most likely) 1 to 2 weeks after surgery depending on the procedure. Follow-up appointment reminders:??? (A list of any scheduled appointments is at the end of this document)??? At your earliest convenience, please call [phone] to confirm/schedule a follow-up appointment with me in clinic. When to call your surgeon: * If any signs of surgical site infection develop: redness, pus, pain, increased swelling or foul odor at the incision site, fever, cold and clammy skin, or confusion. * Consistent temperature above 101???F (38.3???C). * The affected area gets swollen or much more painful. * You have excessive bleeding from surgical site (soaking through). If you experience difficulty breathing and/or shortness of breath, seek immediate medical attention. If experiencing any of the above complic (more content not included)... Normal [facility] Eosinophil percentageOrdered By: [facility] on 04-11-2025 Eosinophils/100 WBC (Bld) 0.8 % 0-5 [facility] Erythrocyte distribution wid th ratioOrdered By: [facility] 04-11-2025 Erythrocyte distribution width (RBC) [Ratio] 13.0 % 11.6-14.6 [facility] Erythrocyte distribution wid th standard deviationOrdered By: [facility] 04-11-2025 Erythrocyte distribution width (RBC) [Ratio] 46.8 fl High 35.1-43.9 [facility] Hematocrit Auto (Bld) [Volum e fraction]Ordered By: [facility] 04-11-2025 Hematocrit (Bld) [Volume fraction] 37.8 % 37-47 [facility] Hemoglobin measurementOrdere d By: [facility] on 04-11-2025 Hemoglobin (Bld) [Mass/Vol] 12.4 g/dL 12.0-15.0 [facility] Immature granulocytes/100 WB C Auto (Bld)Ordered By: [facility] 04-11-2025 Immature granulocytes/100 WBC (Bld) 0.300 % 0.0-0.9 [facility] Comment on above: IG% - Immature Granu locytes (promyelocytes, myelocytes and metamyelocytes) > 1% indicates that a LEFT SHIFT is Present. MCV (mean corpuscular volume ) determinationOrdered By: Rufina Godinez on 04-11-2025 MCV (RBC) [Entitic vol] 99.5 fL High 81-99 [facility] Mean corpuscular hemoglobin (MCH) determinationOrdered By: Rufina Godinez on 04-11-2025 MCH (RBC) [Entitic mass] 32.6 pg High 27.0-32.0 [facility] Mean corpuscular hemoglobin concentration (MCHC) determinationOrdered By: Rufinadionne Godinez on 04-11-2025 MCHC (RBC) [Mass/Vol] 32.8 g/dL 32-36 [facility] Mean platelet volume determi nationOrdered By: Rufina Godinez on 04-11-2025 Platelet mean volume (Bld) [Entitic vol] 9.5 fL 6.2-12.0 [facility] Monocyte percentageOrdered B y: Rufina Godinez on 04-11-2025 Monocytes/100 WBC (Bld) 7.3 % 0-10 [facility] Neutrophil percentageOrdered By: Rufinadionne Godinez on 04-11-2025 Neutrophils/100 WBC (Bld) 73.3 % High 47-70 [facility] Nucleated red blood cell per centageOrdered By: Rufinadionne Godinez on 04-11-2025 Nucleated RBC/100 WBC (Bld) [Ratio] 0 % 0-5 [facility] Platelet countOrdered By: Gurinder Godinez on 04-11-2025 Platelets (Bld) [#/Vol] 199 10*3/uL 150-450 [facility] RBC Auto (Bld) [#/Vol]Ordere d By: Rufina Godinez on 04-11-2025 RBC (Bld) [#/Vol] 3.80 10*6/uL Low 4.2-5.4 [facility] White blood cell (WBC) count Ordered By: Rufina Godinez on 04-11-2025 WBC (Bld) [#/Vol] 7.4 10*3/uL 4.4-11.0 [facility] Frozen Section (charge)on Frozen Section (charge) ----- -------- Patient Age/Sex Location Account Attending Physician -------- BERRY ABAD 79/F [facility] [id number]. Rufina Godinez MD -------- Specimen: [id number] Received: 04/10/25 Status: FAIZA Hatfield Num: [id number] Spec Type: BREAST Subm Dr: Dr. Rufina Godinez MD HEADER OPERATION: Left mastectomy with sentinel lymph node biopsy, blue dye and radiotracer PRE-OP DIAGNOSIS: Invasive lobular carcinoma of breast in female, left breast mass TISSUE SUBMITTED: A- Left sentinel lymph nodes, B- Left breast tissue *long stitch- middle lateral margin, short stitch- superior margin* -------- FROZEN SECTION DIAGNOSIS A. Left breast, sentinel lymph nodes, biopsy: Atypical cells defer to permanent sections. MS/mr 04/10/2025 MICROSCOPIC DIAGNOSIS A. Lymph nodes, sentinel, left, biopsy: - Three sentinel lymph nodes negative for metastasis (0/3). - IHC for panKeratin supports the histologic impression. B. Breast, left, mastectomy: - Invasive lobular carcinoma Grade 2 (tubule 3, nuclear 2, mitosis 1), 0.9 cm, surgical margins free, pT1b,pN0. - Focal ductal carcinoma in situ (DCIS), low nuclear grade, surgical margins free. - ER: positive (100%, strong intensity) - NV: negative - GMU4APU: negative (score 0) - Biopsy site changes, focal organizing fat necrosis. SYNOPTIC REPORT FOR INVASIVE BREAST CARCINOMA Specimen (P=partial, M=mastectomy):???M Laterality (R=right, L=left):???L Focality (U=unifocal, M=multifocal):???U Tumor size (cm):???0.9 cm Histologic type:???invasive lobular Histologic grade:???2 ? Tubule score (1-3):???3 ? Nuclear score (1-3):???2 ? Mitotic score (1-3):???1 Skin, nipple epidermis, skeletal muscle (I=involved, N=negative, NA=not applicable):???N Lymphovascular invasion (E=extensive, F=focal, N=not identified):???N Margins of main specimen (P=positive, N=negative):???N Distance to closest margin of main specimen (mm):???2.5 mm Designation of closest margin of main specimen:???superior Designation of other margins of main specimen Re-resection margin status (P=positive, N=negative, NA=not applicable):???NA ??? DCIS (P=present, N=not identified):???P -------- Patient Age/Sex Location Account Attending Physician -------- BERRY ABAD 79/F [facility] [id number]. Rufina Godinez MD -------- ? Nuclear grade:???low ? Comedo necrosis (P=present, N=not identified):???N ? Extensive intraductal component (P=present, N=not identified):???N ? Margins of main specimen (P=positive, N=negative):???N ? Distance to closest margin of main specimen (mm):???4 mm ? Designation of closest margin of main specimen:???superior ? Designation of other margins of main specimen ? Longest span ? Re-resection margin status (P=positive, N=negative, NA=not applicable):???NA ??? Regional lymph nodes: ? Total number of lymph nodes:???3 ? Number of sentinel lymph nodes:???3 ? Number with macrometastases:???0 ? Number with micrometastases:???0 ? Number with isolated tumor cells:???0 ? Size of largest lakshmi metastasis (mm):???NA ? Size of extranodal extension (mm) (N=not identified):???NA ??? Estrogen receptor:???positive (100%, strong intensity) Progesterone receptor:???negative HER2 IHC:???negative HER2 FISH:???NA Specimen in which ER/NV/HER2 performed:???[id number] pTNM:???pT1b pN0 Additional findings:???Biopsy site changes, focal organizing fat necrosis. Comment:???A radiograph of the breast specimen was performed to assist in the sectioning of the specimen and the image was reviewed and correlated with the histological findings. ??? The above synoptic report complies, in slightly modified form, with the guidelines of the [employer] and the Association of Directors of Anatomic and Surgical Pathology for the reporting of cancer specimens MICROSCOPIC DESCRIPTION Slides are reviewed. GROSS DESCRIPTION A. Received fresh for frozen section diagnosis labeled with the patient's name and date of . Designated as left sentinel nodes frozen are 3 intact lymph nodes ranging from 0.4 x 0.3 x 0.3 cm to 1.7 x 0.7 x 2 smaller lymph nodes have blue dye discoloration. Each lymph node is sectioned and entirely submitted for frozen secti (more content not included)... Normal [facility] Comment on above: Performed By: #### P FSC ####[facility] [id number] [place], [place], [address] H AND P Exam - Surgicalon H&P Exam - Surgical [facility] Medical Records Department [address] [place] [address] H P Exam - Surgical 04/10/25 0717 MR#: [id number] Acct: [id number] Name: ABADBERRY JOVANA Rep #: [id number] : 1945 79 From: Giacomo Philip MD PCP: Dr. Aria Sanchez MD Status:[place] [facility] [place]: [place] [address] HPI - General HPI Narrative HPI from clinic, 07 March 2025: The patient is a 79-year-old female presenting with a suspicious lump in the left breast. Previous medical history reveals a mastectomy on the right breast due to cancer approximately 40 years ago, followed by reconstruction using silicone implants, which eventually ruptured. This rupture was confirmed much later through MRI after several attempts to receive a diagnosis. Currently, the patient has undergone a biopsy for a potential malignancy on the left side. She had a mammogram and ultrasound, and a biopsy was performed to determine the nature of the lump. The patient has opted for surgical management over chemotherapy or radiation if malignancy is confirmed, emphasizing her preference following her previous experiences with breast surgery. Attestation: Documentation on this patient encounter was supported using ambient scribe technology/ voice AI technology. The patient consented to recording for the purpose of documenting the encounter. Provider reviewed content of the generated note prior to signature. 13 March 2025: The patient is a 79-year-old female presenting with a suspicious lump in the left breast. Previous medical history reveals a mastectomy on the right breast due to cancer approximately 40 years ago, followed by reconstruction using silicone implants, which eventually ruptured. This rupture was confirmed much later through MRI after several attempts to receive a diagnosis. Currently, the patient has undergone a biopsy for a potential malignancy on the left side. She had a mammogram and ultrasound, and a biopsy was performed to determine the nature of the lump. The patient has opted for surgical management over chemotherapy or radiation if malignancy is confirmed, emphasizing her preference following her previous experiences with breast surgery. Side of Diagnosis: Left Prior Breast Surgery: R mastectomy (Skin Sparing) with submuscular silicone implant Bra Size: C Desired Bra Size: Same as right Attestation: Documentation on this patient encounter was supported using ambient scribe technology/ voice AI technology. The patient consented to recording for the purpose of documenting the encounter. Provider reviewed content of the generated note prior to signature. Current Encounter, 28 March 2025: Patient is here today for to further discuss breast reconstruction options and get more questions answered. The patient discussed the possibility of placing the implant above or below the muscle, with considerations for matching the right side, which is below the muscle. The benefits of submuscular placement include additional protection and less visibility of the implant's top, which can be camouflaged with fat grafting if necessary. Patient would like to have the tissue mechanical estimator placed above the muscle after our discussion. The surgical plan includes the possibility of using a tissue mechanical estimator initially, with the option to delay implant placement if the surgical site does not appear optimal post-mastectomy. The patient is informed about the potential need for multiple procedures, including the use of FlexHD to stabilize the implant and the process of expanding the tissue mechanical estimator with air initially, followed by fluid Current Encounter (DATE OF SURGERY H P UPDATE): I saw and examined the patient this morning in pre- operative holding. We discussed risks and benefits of today's surgery and they would like to proceed. NO CHANGE in health history since last seen and evaluated. Ready to proceed with surgery. [facility] Medical History Wears hearing aid Wears glasses Post-menopausal Cancer Alcohol use Thyroid disease High cholesterol Injury of back Injury of head and neck Syncope Gastric reflux Former smoker History of echocardiogram History of stress test Cardiology follow-up encounter Laceration of left middle finger Status post placement of implantable loop recorder Syncope and collapse Syncope Fall Hematoma of scalp Subdural hemorrhage Non-rheumatic aortic stenosis Chest tightness Right bundle branch block (RBBB) GERD (gastroesophageal reflux disease) Cancer of right breast Hyperlipidemia Arthritis Essential (primary) hypertension Home Medications ???Medication ???Instructions ???Recorded ???Last Taken ???Type wartxbcs-enyv-nwxc 8 mg-folic 400 1 ea PO DAILY SUPPLEMENT 05/27/16 03/20/24 History mcg-K 50 mcg-lutein 300 mcg tablet benzonatate 200 mg c (more content not included)... Normal [facility] Lymph Node Injection Onlyon 04-10-2025 Lymph Node Injection Only [facility] Imaging Services [address] [place] [address] Lymph Node Injection Only MR#: [id number] Acct: [id number] Name: BERRY ABAD JOVANA Rep #: [id number] : 1945 F 79 From: Jaya gunn MD PCP: Dr. Aria Sanchez MD Status: [facility] Study: Lymph Node Injection Only Date of Exam: Exam# [id number] Ordering Dr: Yajaira Landrum PROCEDURE: LYMPH NODE INJECTION ONLY 04/10/2025 REASON FOR EXAM: LEFT BREAST CANCER TECHNIQUE: LYMPH NODE INJECTION ONLY 555 uCi of Tilmanocept was injected subdermally 1 cm above the left nipple for sentinel node imaging. RADIOPHARMACEUTICAL DOSE: 555 uCi COMPARISON: None FINDINGS: None NM/Lymph Node Injection Only IMPRESSION: Successful injection of 555 uCi of Tilmanocept injected subdermally for sentinel node imaging. Reading Location: [place] [address] CC: BERTIN Landrum; Dr. Aria Sanchez MD; Dr. Rufina Godinez MD Industrial Machine Assembler: Signed [facility] MR/POSTOP.[facility] 04-10-2025 MR/POSTOP.[facility] Medical Records Department [address] [place] [address] Anesthesia Postop Eval I 04/10/25 1358 MR#: [id number] Acct: [id number] Name: BERRY ABAD JOVANA Rep #: [id number] : 1945 79 From: Aranza Cabrera CRNA PCP: Dr. Aria Sanchez MD Status:ADM GORDY Y Race: C [place] [facility] [id number] Anesthesia: Postop Eval I Current Vital Signs Temperature: 97.6 F Pulse Rate: 69 Blood Pressure: 163/90 Respiratory Rate: 16 Pulse Ox: 96 Oxygen Delivery Method: Nasal Cannula Oxygen Flow Rate (L/min): 4 Assessment Airway patent: Yes Spontaneous unlabored respirations: Yes Mental status: Awake and Calm nausea: No Vomiting: No Anesthesia Complication: No Fluid Hydration Crystalloid volume administer (ml): 1,200 Total IV fluid infused: 1,200 Progress Note Anesthesia document: Postop Eval 1 completed: Yes 04/10/25 1359 Date Aranza Cabrera DIRECTOR OF BUSINESS SYSTEMS Cosigner Signature: Date CC: Signed Normal [facility] MR/GVMNQVEL0yo 04-10-2025 MR/POSTOPAN2 [facility] Medical Records Department [address] [place] [address] Anesthesia Postop Eval II 04/10/25 1604 MR#: [id number] Acct: [id number] Name: BERRY ABAD JOVANA Rep #: [id number] : 1945 79 From: Rafita Rios MD PCP: Dr. Aria Sanchez MD Status:ADM GORDY Y Race: C Location: [place] [address] Anesthesia Postop Eval I Sum Postop Eval Completion status Anesthesia document: Postop Eval 1 completed: Yes Anesthesia Postop Eval I Summary Anesthesia Postop Eval I Summary: Anesthesia Postop Eval I: Assessment Summary Airway patent Yes 04/10/25 13:59 DIRECTOR OF BUSINESS SYSTEMS.JDEF Spontaneous unlabored Yes 04/10/25 13:59 DIRECTOR OF BUSINESS SYSTEMS.JDEF respirations Mental status Awake,Calm 04/10/25 13:59 DIRECTOR OF BUSINESS SYSTEMS.JDEF nausea No 04/10/25 13:59 DIRECTOR OF BUSINESS SYSTEMS.JDEF Vomiting No 04/10/25 13:59 DIRECTOR OF BUSINESS SYSTEMS.JDEF Anesthesia Postop Eval I: Fluid Summary Crystalloid volume administer 1,200 04/10/25 13:59 DIRECTOR OF BUSINESS SYSTEMS.JDEF (ml) Colloids volume administered ( ml) Blood Product volume administered (ml) Total IV fluid infused 1,200 04/10/25 13:59 DIRECTOR OF BUSINESS SYSTEMS.JDEF Anesthesia Postop Eval I: Summary Notes Anesthesia Complication No 04/10/25 13:59 DIRECTOR OF BUSINESS SYSTEMS.JDEF Anesthesia Complication Comment: Post-operative progress note Anesthesia: Postop Eval II Evaluation Mental status: Awake and Calm Pain Level: 3 nausea: No Vomiting: No Complications Anesthesia Complication: No 04/10/25 160 Date Rafita Rios MD Cosigner Signature: Date CC: Signed Normal [facility] Operative Reporton Operative Report [facility] Medical Records Department [address] [place] [address] Operative Report 04/10/25 1627 MR#: [id number] Acct: [id number] Name: BERRY ABAD JOVANA Rep #: [id number] : 1945 79 From: Giacomo Philip MD PCP: Dr. Aria Sanchez MD Status:ADM GORDY Location: [place] [address] Operative Report (Standard) Operative Information Date of Procedure: 04/10/25 Pre-Operative Diagnosis: Left breast cancer Post-Operative Diagnosis: Same Surgery/Procedure Performed: 1) Intraoperative assessment of mastectomy flaps with SPY (CPT: 01611) 2) Prepectoral placement of left breast tissue mechanical estimator with acellular dermal matrix (CPT: 65633) 3) Use of acellular dermal matrix (Flex HD) to reinforce/stabilize tissue mechanical estimator in the breast pocket (CPT: 88389) post manager: Yes [employer] Cable Tool Operator: Damion Soler Tasks completed by speech pathologist assistant: Retracting Type of Anesthesia: General RN Documented Start/Stop Times: Operation Date: 04/10/25 09:00 Case Time Into Pre-Op 04/10/25 07:02 Out of Pre-Op 04/10/25 09:55 Anesthesia Start 04/10/25 09:56 Into Room 04/10/25 09:56 Procedure Start 04/10/25 10:29 Procedure End 04/10/25 13:36 Anesthesia End 04/10/25 13:48 Out of Room 04/10/25 13:48 Into Recovery 04/10/25 13:50 Out of Recovery 04/10/25 16:05 Procedure Start Time: 01:00 Procedure Stop Time: 13:36 Select all DRAINS/GRAFTS/IMPLANT S that apply: Drains (2 drains) Drain details: one 19 Malian and one 15 Malian Miguel A drain tunneled out medially and laterally , Tissue (Acellular dermal matrix) Tissue details: Flex HD pliable PRE-L-21 x 24 cm, expiration 01/01/2028, serial #[id number], products code [id number] and Implanted device (Tissue mechanical estimator) Implanted device details: [place] CPX 4+ smooth medium height, 13.5 cm base width, 550 cc (inflated with 150 cc of air). Lot [id number], serial #[id number], expiration date June. Estimated Blood Loss: 20 cc Specimen collected: No Description of surgery: Indications: Patient is a delightful 79-year-old female with left breast cancer here for skin sparing mastectomy. Discussed risks, benefits, and alternatives, to reconstruction and she elected to proceed with reconstruction using ADM and tissue mechanical estimator. Procedure details: Patient was correctly identified in preoperative holding and I marked the IMF and the breast mound. She was taken back to the operating room where the mastectomy portion of the procedure was performed by Dr. Godinez. Please see her separate dictation for her portion of the case. The notes were apparently clinically negative (sentinel nodes), and there was no plan for axillary dissection. Plastic surgery was called in the room. The breast cavity was irrigated with Irrisept and the chest wall was reprepped and draped with new drapes. A timeout was performed. Hemostasis was obtained with Bovie electrocautery and the left breast pocket. We then injected 3 cc of indocyanine green and the flaps were assessed with fluorescence angiography using the SPY machine. There was a small area on the inferior flap immediately adjacent to the mastectomy incision that measured approximately 1 x 4 cm which was excised full-thickness with a curved Gross scissor as there was concern that this area had poor perfusion. Otherwise the rest of the mastectomy flaps had excellent perfusion and were of adequate thickness. Attention was then turned to reconstruction with a tissue mechanical estimator. The tissue mechanical estimator was wrapped with the above-noted ADM circumferentially (edges of the ADM were sutured together with 3-0 Vicryl suture) and washed with Irrisept. The breast cavity was then irrigated again and washed with Irrisept. With new gloves the tissue mechanical estimator and ADM were placed in the left breast pocket in the prepectoral plane. The medial 9:00 and inferior 6:00 suture tabs were then sutured to the chest wall with 2-0 PDS. We are happy with the placement at this point. The tissue mechanical estimator was further reinforced with suturing the ADM medially to the chest with interrupted PDS sutures in a 12:00 suture with an interrupted PDS suture to stabilize the tissue mechanical estimator and ADM in place. Two drains were then placed, one 15 Malian drain medially and one 19 Malian drain laterally. 3-0 Vicryl deep sutures were then placed to approximate the soft tissues over the implant followed by 3- 0 Monocryl deep dermal sutures and 3-0 Monocryl running subcuticular sutures. Prineo tape was applied. The drains were holding suction at the end of the case. Patient tolerated the procedure well. Counts were correct at the end of the case. She was awakened and taken to the PACU in stable condition. Surgical Findings: Healthy mastectomy flaps except for very small portion (1 x 4 cm) of the inferior mastectomy flap immediately adjacent to the incision site which was excised full-thick (more content not included)... Normal [facility] Operative Report [facility] Medical Records Department [address] [place] [address] Operative Report 04/10/25 1142 MR#: [id number] Acct: [id number] Name: BERRY ABAD JOVANA Rep #: [id number] : 1945 79 From: Rufina Godinez MD PCP: Dr. Aria Sanchez MD Status:ADM GORDY [place] [facility] [id number] Oncology: Sorin Requirements . Oncology surgical intervention performed: Hayward Node Biopsy for Breast Cancer performed Hayward Node Bx - Breast Cancer: Synoptic Portion: Element Response Options Operation performed with curative intent. Yes Tracer(s) used to identify sentinel nodes in the upfront surgery (non-neoadjuvant) setting (select all that apply). Dye; Radioactive tracer Tracer(s) used to identify sentinel nodes in the neoadjuvant setting (select all that apply).N/A All nodes (colored or non-colored) present at the end of a dye-filled lymphatic channel were removed. Yes All significantly radioactive nodes were removed. Yes All palpably suspicious nodes were removed. N/A Biopsy-proven positive nodes marked with clips prior to chemotherapy were identified and removed. N/A. Operative Report (Standard) Operative Information Date of Procedure: 04/10/25 Pre-Operative Diagnosis: Invasive lobular carcinoma left breast Post-Operative Diagnosis: Same Surgery/Procedure Performed: Left skin sparing mastectomy, sentinel lymph node biopsy Lymphoseek and methylene blue post manager: Yes [employer] Tool Operator: Damion Soler Tasks completed by speech pathologist assistant: Opening closing and Retracting Type of Anesthesia: General/Supplemental RN Documented Start/Stop Times: Operation Date: 04/10/25 09:00 Case Time Into Pre-Op 04/10/25 07:02 Out of Pre-Op 04/10/25 09:55 Anesthesia Start 04/10/25 09:56 Into Room 04/10/25 09:56 Procedure Start 04/10/25 10:29 Procedure End 04/10/25 13:36 Anesthesia End 04/10/25 13:48 Out of Room 04/10/25 13:48 Into Recovery 04/10/25 13:50 Procedure Start Time: 10:29 Procedure Stop Time: 11:50 (My portion of the surgery) Select all DRAINS/GRAFTS/IMPLANT S that apply: Drains Drain details: Please see Dr. Philip's operative report Special Medications: Ancef 2 g IV x 1 Estimated Blood Loss: 10 cc Specimen collected: Yes Description of specimen(s) removed: Left axillary sentinel nodes, left mastectomy Description of surgery: In AC the breast tissue was injected with Lymphoseek. 30 minutes later the patient was taken to the operating room and general anesthesia was induced. 6 cc of methylene blue blue dye was injected in the 4 quadrants periareolar along with 10 cc of normal saline. This was massaged gently for 5 minutes. The left breast and axilla were prepped and draped in usual sterile fashion. A timeout was completed verifying correct patient, procedure, site, positioning, special equipment prior to beginning procedure. Handheld gamma probe was used to identify the location of the hottest spot in the axilla. Prior to the incision, the counts were 25. The incision was made and the hot and blue nodes were identified. The probe was placed in contact with the node in the 10 count was 1604 and 1838. The bed of the node measured 20 counts. No additional blue or hot nodes were detected. Frozen stated there were some atypical cells present but unable to tell more on frozen. Skin sparing incision was made that encompassed the nipple areolar complex transversely across the breast. Flaps are raised in the avascular plane between the flap and the breast tissue from the clavicle superiorly, the sternum medially, the anterior rectus sheath inferiorly, and posterolateral border of the pectoralis major muscle laterally. Hemostasis was achieved in the flaps. Next, the breast tissue and underlying pectoralis fascia were excised from the pectoralis major muscle, progressing from medial to laterally. At the lateral border of the pectoralis major muscle, the breast tissue was swung laterally and the lateral pedicle identified with the breast tissue gave way to the fat of the axilla. The lateral pedicle was incised and the specimen removed and oriented for pathology. The wound was irrigated and hemostasis was achieved. The axillary incision was closed with interrupted 3-0 Vicryl to the simultaneously followed by a subcuticular layer of 4-0 Monocryl and Dermabond. Please see Dr. Philip's operative report for the reminder of the procedure. Surgical Findings: Hayward lymph node frozen showed some atypical cells unable to delineate further on frozen Complications Complications: No 04/10/25 1428 Cosigner Signature (if applicable): CC: Dr. Aria Sanchez MD; Dr. Giacomo Philip MD; Dr. Rufina Godinez MD Signed Normal [facility] Electrocardiogram reportOrde red By: Kameron Gamez on 04-03-2025 EKG study [facility] Cardiovascular Services [address] [place] [address] 12 Lead EKG 04/02/25 0921 MR#: [id number] Acct: [id number] Name: BERRY ABAD JOVANA Rep #:[id number] : 1945 79 From: Kameron Gamez MD Attending Dr: Dr. Rufina Godinez MD Status: PRE SDC Ordering Dr: Rufina Godinez MD Date: 04/02/25 [place] [facility] [place] F C Admitted: Test Reason : PREOP Blood Pressure : */* mmHG Vent. Rate : 58 BPM Atrial Rate : 58 BPM P-R Int : 194 ms QRS Dur : 114 ms QT Int : 450 ms P-R-T Axes : 17 74 49 degrees QTcB Int : 441 ms Sinus bradycardia Incomplete right bundle branch block Septal infarct (cited on or before 27-May-2016) Abnormal ECG Confirmed by KAMERON GAMEZ MD ([id number]), order editor MEMO ROSE ([id number]) on 04/03/2025 7:12:04 AM Referred By: Rufina Godinez Confirmed By: KAMERON GAMEZ MD 04/03/25711 Date _ Kameron Gamez MD CC: Dr. Aria Sanchez MD; Dr. Rufina Godinez MD ~ Signed [facility] Work Phone: 12 Lead EKGon 04-02-2025 12 Lead EKG [facility] Cardiovascular Services [address] [place] [address] 12 Lead EKG 04/02/25 09 MR#: [id number] Acct: [id number] Name: BERRY ABAD JOVANA Rep #: [id number] : 1945 79 From: Kameron Gamez MD Attending Dr: Dr. Rufina Goidnez MD Status: P RE SDC Ordering Dr: Rufina Godinez MD Date: 04/02/25 [place] [facility] [place] F C Admitted: Test Reason : PREOP Blood Pressure : */* mmHG Vent. Rate : 58 BPM Atrial Rate : 58 BPM P-R Int : 194 ms QRS Dur : 114 ms QT Int : 450 ms P-R-T Axes : 17 74 49 degrees QTcB Int : 441 ms Sinus bradycardia Incomplete right bundle branch block Septal infarct (cited on or before 27-May-2016) Abnormal ECG Confirmed by FRANCO GARVEY, KAMERON ([id number]), order editor MEMO ROSE ([id number]) on 04/03/2025 7:12:04 AM Referred By: Rufina Godinez Confirmed By: KAMERON GAMEZ MD 04/03/25711 Date Kameron Gamez MD CC: Dr. Aria Sanchez MD; Dr. Rufina Godinez MD Signed [facility] MR/PATDelfina 04-02-2025 MR/PAT.[facility] Medical Records Department [address] [facility] [place] [address] PAT - Anesthesia 04/02/252207 MR#: [id number] Acct: [id number] Name: BERRY ABAD Rep #: [id number] : 1945 79 From: Tato Venegas MD PCP: Dr. Aria Sanchez MD Status:PRE [facility] [place] Race: C [place] [facility] [place]-Assessment Diagnosis/Proposed Procedure Planned Operative Procedure(s): (L) Left Mastectomy w/SLN bx, blue dye radiotracer - COMBO CASE WITH SISKA (L) LEFT BREAST TISSUE PV INSTALLER TECH PLACEMENT SUB MUSCULAR WITH ACELLULAR DERMAL MATRIX. 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 When Was Last Pacemaker Check QUESTION #4 FULL TEXT: You/Your Family Experience fever (hyperthermia) with Anesthesia Last Oral Intake Last Oral intake: Last Oral Intake NPO since Meds taken in AM with sips of water? Meds patient instructed to take am of surgery PONV PONV - collective bargaining specialist: PONV - collective bargaining specialist Female Yes 03/27/25 14:44 HX of Motion Sickness Yes 03/27/25 14:44 HX of N/V After Surgery Yes 03/27/25 14:44 Non-Smoker Yes 03/27/25 14:44 Duration of Surgery greater Yes 03/27/25 14:44 than 60 minutes Number of Risk Factors 5 03/27/25 14:44 PONV Score Severe Risk 03/27/25 14:44 Height Weight Height Weight: Anesthesia: Height Weight Height 5 ft 4 in 03/22/25 08:11 Respiratory Assessment Respiratory Assessment - collective bargaining specialist: Respiratory Tract Infection Hx - collective bargaining specialist Hx Respiratory Tract Infection No 03/27/25 14:44 STOP Sleep Apnea STOP Sleep Apnea - collective bargaining specialist: STOP Sleep Apnea - collective bargaining specialist Hx Hypertension Yes: CONTROLLED ON MED 03/27/25 14:44 Hx Sleep Apnea No 03/27/25 14:44 CPAP No 03/27/25 14:44 BIPAP Do you snore loudly (louder No 03/27/25 14:44 than talking or can be heard Do you often feel tired/ No 03/27/25 14:44 fatigued/ sleepy during daytime? Has anyone observed you stop No 03/27/25 14:44 breathing during sleep? STOP Results Negative 03/27/25 14:44 QUESTION #5 FULL TEXT : Do you snore loudly (louder than talking or can be heard through closed doors)? Tobacco Use History Tobacco Use History - collective bargaining specialist: Tobacco Use History - collective bargaining specialist Tobacco Use Smoking Status Former smoker 03/27/25 14:44 Hx Tobacco Use No 03/27/25 14:44 Years Smoking Packs Smoked per Day Smoking Cessation Date was No - quit smoking greater 03/27/25 14:44 within the last 15 years than 15 years ago Hx Smoking Cessation Date Hx Smoking Cessation No 03/27/25 14:44 Counseling Hematologic Medial History Hematologic Hx - collective bargaining specialist: Hematologic Medical Hx - funder Hx of Blood Transfusion No 03/27/25 14:44 Hx of Transfusion in last 3 No 03/27/25 14:44 Months Date of Last Transfusion (if within last 3 months) Ever experience any problems No 03/27/25 14:44 with transfusion(s)? Specify any problems Hx of Preganancy in last 3 No 03/27/25 14:44 Months Nurse Filling Out Transfusion VCHRISTIN 03/27/25 14:44 Questions: Date: 03/27/25 03/27/25 14:44 Time: 14:50 03/27/25 14:44 Patient unable to answer at this time (ie. confused, unrespo /Reproductio n History /Reproductiv e History - collective bargaining specialist: /Reproductiv e Hx- collective bargaining specialist Hx Now No 03/27/25 14:44 Gestational Age (in weeks): EDC: Hx Hx Para Hx Section SAB No 03/27/25 14:44 PFSH Medical History Wears hearing aid Wears glasses Post-menopausal Cancer Alcohol use Thyroid disease High cholesterol Injury of back Injury of head and neck Syncope Gastric reflux Former smoker History of echocardiogram History of stress test Cardiology follow-up encounter Laceration of left middle finger Status post placement of implantable loop recorder Syncope and collapse Syncope Fall Hematoma of scalp Subdural hemorrhage Non-rheumatic aortic stenosis Chest tightness Right bundle branch block (RBBB) GERD (gastroesophageal reflux disease) Cancer of right breast Hyperlipidemia Arthritis Essential (primary) hypertension Home Med (more content not included)... Normal [facility] Plastic Surgery Visit Report on 03-28-2025 Plastic Surgery Visit Report [facility] Plastic Reconstructive Surgery [address], [address] [place] [address] OFFICE VISIT Date of Service: 03/28/25 MR#: [id number] Acct: [id number] Name: BERRY ABAD Rep #: [id number] : 1945 Provider: Dr. Giacomo Philip MD Age/Sex: 79/F Location: [facility] Status: Signed Intake Vital Signs 03/18/25 11:00 03/22/25 08:11 03/28/25 09:53 Height 5 ft 4 in 5 ft 4 in Weight: 145 lb BMI 24.9 BP 147/85 H 123/79 H Blood Pressure Location Rt brachial Rt brachial Position Sitting Sitting Respiration 18 18 Pulse 52 L 86 Pulse Source Monitor Monitor Temp 97.6 F L Temp Source Temporal Pulse Oximetry (%) 98 90 Oxygen Delivery Method room air room air Intake Visit Reasons: FOLLOW UP Chief Complaint: Surgery questions Is patient in pain?: No Allergies bupropion HCl (From Zyban) Allergy (Severe, Verified 03/28/25 09:52) Hives red dye Allergy (Mild, Verified 03/28/25 09:52) Itching bupropion (From Zyban) Allergy (Verified 03/28/25 09:52) Hives acetaminophen (From Vicodin) Adverse Reaction (Verified 03/28/25 09:52) N/V hydrocodone (From Vicodin) Adverse Reaction (Verified 03/28/25 09:52) N/V hydromorphone Adverse Reaction (Verified 03/28/25 09:52) constipation Medications ???Medication ???Instructions ???Recorded ???Confirmed ???Type emhmrmze-wtgo-wpim 8 mg-folic 400 1 ea PO DAILY SUPPLEMENT 05/27/16 03/28/25 History mcg-K 50 mcg-lutein 300 mcg tablet benzonatate 200 mg capsule 200 mg PO TID PRN cough #20 caps 0 03/16/18 03/28/25 Rx atorvastatin 40 mg tablet 40 mg PO QHS CHOLESTEROL #90 tabs 07/12/24 03/28/25 Rx famotidine-Ca carb-mag hydrox 10 1 tab PO DAILY PRN indigestion 03/28/25 History mg-800 mg-165 mg chewable tablet (Pepcid Complete) metoprolol succinate 25 mg 25 mg PO DAILY BP #90 tabs 4 03/28/25 Rx tablet,extended release 24 hr (Toprol XL) melatonin 10 mg capsule 20 mg PO HS PRN insomnia 03/06/25 03/28/25 History levothyroxine 75 mcg tablet 75 mcg PO DAILY THYROID 03/27/25 0 03/28/25 History Have you fallen in the past year?: No PFSH Medical History Wears hearing aid Wears glasses Post-menopausal Cancer Alcohol use Thyroid disease High cholesterol Injury of back Injury of head and neck Syncope Gastric reflux Former smoker History of echocardiogram History of stress test Cardiology follow-up encounter Laceration of left middle finger Status post placement of implantable loop recorder Syncope and collapse Syncope Fall Hematoma of scalp Subdural hemorrhage Non-rheumatic aortic stenosis Chest tightness Right bundle branch block (RBBB) GERD (gastroesophageal reflux disease) Cancer of right breast Hyperlipidemia Arthritis Essential (primary) hypertension Surgical History Hx of neck surgery History of breast reconstruction H/O section History of appendectomy History of mastectomy Family History Brother , age 49 Cancer lung Social History Smoking Status: Former smoker quit date: 09/26/04 pack-years: 40 Tobacco: How many years used: 40 how long ago did patient quit smokin years ago second hand exposure: Yes alcohol intake: current alcohol intake frequency: 0-2 drinks per day Alcohol type: wine HPI FOLLOW UP Details: HPI from clinic, 07 March 2025: The patient is a 79-year-old female presenting with a suspicious lump in the left breast. Previous medical history reveals a mastectomy on the right breast due to cancer approximately 40 years ago, followed by reconstruction using silicone implants, which eventually ruptured. This rupture was confirmed much later through MRI after several attempts to receive a diagnosis. Currently, the patient has undergone a biopsy for a potential malignancy on the left side. She had a mammogram and ultrasound, and a biopsy was performed to determine the nature of the lump. The patient has opted for surgical management over chemotherapy or radiation if malignancy is confirmed, emphasizing her preference following her previous experiences with breast surgery. Attestation: Documentation on this patient encounter was supported using ambient scribe technology/ voice AI technology. The patient consented to recording for the purpose of documenting the encounter. Provider reviewed content of the generated note prior to signature. 13 March 2025: The patient is a 79-year-old female presenting with a suspicious lump in the left breast. Previous medical history reveals a mastectomy on the right breast due to cancer approximately 40 years (more content not included)... Normal [facility] Surgery Visit Reporton 03-22 Surgery Visit Report [facility] [address] [facility] [place] [address] OFFICE VISIT Date of Service: 03/22/25 MR#: [id number] Acct: [id number] Name: BERRY ABAD JOVANA Rep #: [id number] : 1945 Provider: Dr. Rufian valenzuela MD Age/Sex: 79/F Location: [facility] Status: Signed Intake Vital Signs 03/15/25 09:19 03/18/25 11:00 03/22/25 08:11 Height 5 ft 4 in 5 ft 4 in 5 ft 4 in Weight: 145 lb BMI 24.9 BP 147/85 H Blood Pressure Location Rt brachial Position Sitting Respiration 18 Pulse 52 L Pulse Source Monitor Temp 97.6 F L Temp Source Temporal Pulse Oximetry (%) 98 Oxygen Delivery Method room air Intake Visit Reasons: DISCUSS MASECTOMY COMBO WITH DR PHILIP Chief Complaint: discuss masectomy combo with Dr. Philip Is patient in pain?: No Allergies bupropion HCl (From Zyban) Allergy (Severe, Verified 03/22/25 08:12) Hives red dye Allergy (Mild, Verified 03/22/25 08:12) Itching bupropion (From Zyban) Allergy (Verified 03/22/25 08:12) Hives acetaminophen (From Vicodin) Adverse Reaction (Verified 03/22/25 08:12) N/V hydrocodone (From Vicodin) Adverse Reaction (Verified 03/22/25 08:12) N/V hydromorphone Adverse Reaction (Verified 03/22/25 08:12) constipation Medications ???Medication ???Instructions ???Recorded ???Confirmed ???Type bcwsjnbw-ddhm-hmga 8 mg-folic 400 1 ea PO DAILY 05/27/16 03/22/25 H istory mcg-K 50 mcg-lutein 300 mcg tablet omega-3 fatty acids 1,000 mg 1,000 mg PO DAILY 05/27/16 5 History capsule benzonatate 200 mg capsule 200 mg PO TID PRN cough #20 caps 0 03/16/18 03/22/25 Rx antiarthritic combination no.2 900 mg PO 06/04/20 03/22/25 History mg tablet (glucosamine-chondroi tin) atorvastatin 40 mg tablet 40 mg PO QHS #90 tabs 07/12/24 Rx famotidine-Ca carb-mag hydrox 10 1 tab PO DAILY PRN indigestion 03/22/25 History mg-800 mg-165 mg chewable tablet (Pepcid Complete) metoprolol succinate 25 mg 25 mg PO DAILY #90 tabs 07/12/24 0 03/22/25 Rx tablet,extended release 24 hr (Toprol XL) coconut oil 1,000 mg capsule mg PO 03/06/25 03/22/25 History levothyroxine 25 mcg tablet 75 mcg PO DAILY 03/06/25 03/22/25 History melatonin 10 mg capsule 10 mg PO HS PRN insomnia 03/06/25 03/22/25 History Have you fallen in the past year?: No PFSH Medical History Laceration of left middle finger Status post placement of implantable loop recorder Syncope and collapse Chest tightness Non-rheumatic aortic stenosis Subdural hemorrhage Hematoma of scalp Fall Syncope Right bundle branch block (RBBB) GERD (gastroesophageal reflux disease) Cancer of right breast Hyperlipidemia Arthritis Essential (primary) hypertension Surgical History History of breast reconstruction H/O section History of appendectomy History of mastectomy Family History Brother , age 49 Cancer lung Social History Smoking Status: Former smoker quit date: 09/26/04 pack-years: 40 Tobacco: How many years used: 40 how long ago did patient quit smokin years ago second hand exposure: Yes alcohol intake: current alcohol intake frequency: 0-2 drinks per day Alcohol type: wine HPI HPI HPI: 79-year-old female presents to discuss treatment for left invasive lobular carcinoma. Patient previously had right mastectomy due to breast cancer. Patient is interested in having mastectomy with reconstruction. Patient and markers were ER positive NV negative, HER2 equivocal FISH pending. Patient is already seeing Dr. Murrieta. ROS General General: Yes breast cancer; No weight change, appetite, fatigue, colon cancer or weakness HEENT HEENT: No difficulty swallowing, eye injury, eye surgery, swollen glands or hoarseness Endo Endocrine: No thyroid disease, diabetes mellitus, thyroid cancer, Hair loss, heat intolerance or cold intolerance Skin Skin: No rash or changing moles Breast Breast: No left breast lump, right breast lump, nipple discharge, breast pain, abnormal mammogram, abnormal US or breast enlargement Musc Musculoskeletal: No back problems, arthritis, rheumatoid arthritis, gout or joint pain Cardio Cardiovascular: No murmur, pacemaker, heart disease, atrial fibrillation, high blood pressure, heart attack, heart stent, palpitations, shortness of breath with exertion or chest pain Psych Psychiatric: No depression, anxiety or hearing voices Resp Respiratory: No shortness of breath, No sleep apnea, No cough, No COPD, No asthma, No emphysema and No wheezing Derek (more content not included)... Normal [facility] SURG PATH REQUESTon 03-18-20 Case Report Normal [facility] Comment on above: Result Comment: Surg ical Pathology Report Case: [id number] Authorizing Provider: Bertha Bo MD Collected: 03/18/2025 03:02 PM Ordering Location[facility] Received: 03/18/2025 03:03 PM [place] Pathologist: Apolinar Jack MD, PhD Specimen: SURG PATH, Outside Unstained Slides; HER2, FISH testing; Breast, Left, 1 O'clocks, 6 CMFN, Core Biopsy Performed By: #### S URGP #### [facility] (DEFAULT) [address] [address] Gross Description [facility] Comment on above: Result Comment: The following material(s) are received from [facility], [address] [place] [address], with an identifying surgical pathology report: 1 H&E slide(s) and 2 unstained slides marked A1, labeled [id number]. Material with be returned upon completion of review. Grosser for this case was: Guadalupe Nick Performed By: #### S URGP #### [facility] (DEFAULT) [address] [address] Microscopic Description Tissue was asses sed by a molecular pathologist to select areas for analysis and to correlate immunostaining with histology. No morphologic assessment was requested. [facility] Comment on above: Performed By: #### S URGP #### [facility] (DEFAULT) [address] [address] [address] [facility] Comment on above: Result Comment: Outs shaila Slides: [id number] (03/06/2025) A. Breast, Left, 1 o'clock, 6CMFN, Core Biopsy: HER2 FISH: Negative (see FISH report for details) at 0859 EDT Performed By: #### S URGP #### [facility] (DEFAULT) [address] [address] Professional Interpretation Performed at: [facility] Comment on above: Result Comment: [facility] For Immediate Release to Patient's [facility]? Yes [address] [facility] [address] [place], [place] [address] Performed By: #### S URGP #### [facility] (DEFAULT) [address] [address] Microalb:Creat Ratio,Random URon 03-15-2025 MALB:CREAT 32.0 mg/g CRE Normal [facility] Comment on above: Result Comment: AMENDED REPORT 03/15/25 9564 MALB:CREAT previously reported as: 320.0 mg/g CRE Performed By: #### L [id number] #### [facility] [address] [place], [place], [address] Plastic Surgery Visit Report on 03-13-2025 Plastic Surgery Visit Report [facility] Plastic Reconstructive Surgery [address] [place] [address] OFFICE VISIT Date of Service: 03/13/25 MR#: [id number] Acct: [id number] Name: BERRY ABAD Rep #: [id number] : 1945 Provider: Dr. Giacomo Philip MD Age/Sex: 79/F [facility] Status: Signed with Addenda ADDENDUM by Dr. Giacomo Philip MD on 03/13/25 at 1553 Assessment and Plan (No Qualifiers) Assessment and Plan (1) Left breast mass: Status: Acute Plan: Discussed risks of ALCL and squamous cell cancers from the breast implants. Also discussed risks of breast implant illness 03/13/25 1553 Date Giacomo Philip MD cc: * Signed Intake Vital Signs 03/06/25 14:56 03/13/25 14:32 Height 5 ft 4 in Weight: 148 lb BMI 25.4 BP 162/89 H 130/78 H Blood Pressure Location Lt brachial Lt brachial Position Sitting Sitting Respiration 16 18 Pulse 68 Pulse Source Monitor Pulse Oximetry (%) 97 Oxygen Delivery Method room air Intake Visit Reasons: FOLLOW UP Chief Complaint: L breast mass Is patient in pain?: No Allergies bupropion HCl (From Zyban) Allergy (Severe, Verified 03/13/25 14:31) Hives red dye Allergy (Mild, Verified 03/13/25 14:31) Itching bupropion (From Zyban) Allergy (Verified 03/13/25 14:31) Hives acetaminophen (From Vicodin) Adverse Reaction (Verified 03/13/25 14:31) N/V hydrocodone (From Vicodin) Adverse Reaction (Verified 03/13/25 14:31) N/V hydromorphone Adverse Reaction (Verified 03/13/25 14:31) constipation Medications ???Medication ???Instructions ???Recorded ???Confirmed ???Type vqphioei-mvur-rtdu 8 mg-folic 400 1 ea PO DAILY 05/27/16 03/13/25 H istory mcg-K 50 mcg-lutein 300 mcg tablet omega-3 fatty acids 1,000 mg 1,000 mg PO DAILY 05/27/16 5 History capsule benzonatate 200 mg capsule 200 mg PO TID PRN cough #20 caps 0 03/16/18 03/13/25 Rx antiarthritic combination no.2 900 mg PO 06/04/20 03/13/25 History mg tablet (glucosamine-chondroi tin) atorvastatin 40 mg tablet 40 mg PO QHS #90 tabs 07/12/24 Rx famotidine-Ca carb-mag hydrox 10 1 tab PO DAILY PRN 07/12/24 History mg-800 mg-165 mg chewable tablet (Pepcid Complete) metoprolol succinate 25 mg 25 mg PO DAILY #90 tabs 07/12/24 0 03/13/25 Rx tablet,extended release 24 hr (Toprol XL) coconut oil 1,000 mg capsule mg PO 03/06/25 03/13/25 History levothyroxine 25 mcg tablet 75 mcg PO DAILY 03/06/25 03/13/25 History melatonin 10 mg capsule 10 mg PO HS PRN 03/06/25 03/13/25 History Have you fallen in the past year?: No PFSH Medical History Laceration of left middle finger Status post placement of implantable loop recorder Syncope and collapse Chest tightness Non-rheumatic aortic stenosis Subdural hemorrhage Hematoma of scalp Fall Syncope Right bundle branch block (RBBB) GERD (gastroesophageal reflux disease) Cancer of right breast Hyperlipidemia Arthritis Essential (primary) hypertension Surgical History History of breast reconstruction H/O section History of appendectomy History of mastectomy Family History Brother , age 49 Cancer lung Social History Smoking Status: Former smoker quit date: 09/26/04 pack-years: 40 Tobacco: How many years used: 40 how long ago did patient quit smokin years ago second hand exposure: Yes alcohol intake: current alcohol intake frequency: 0-2 drinks per day Alcohol type: wine HPI FOLLOW UP Details: HPI from clinic, 07 March 2025: The patient is a 79-year-old female presenting with a suspicious lump in the left breast. Previous medical history reveals a mastectomy on the right breast due to cancer approximately 40 years ago, followed by reconstruction using silicone implants, which eventually ruptured. This rupture was confirmed much later through MRI after several attempts to receive a diagnosis. Currently, the patient has undergone a biopsy for a potential malignancy on the left side. She had a mammogram and ultrasound, and a biopsy was performed to determine the nature of the lump. The patient has opted for surgical management over chemotherapy or radiation if malignancy is confirmed, emphasizing her preference following her previous experiences with breast surgery. Attestation: Documentation on this patient encounter was supported using ambient scribe technology/ voice AI technology. The patient consented to recording for the purpose of documenting the encounter. Provider reviewed (more content not included)... Normal [facility] Plastic Surgery Visit Report on 03-07-2025 Plastic Surgery Visit Report [facility] Plastic Reconstructive Surgery [address] [facility], [address] [place] [address] OFFICE VISIT Date of Service: 03/07/25 MR#: [id number] Acct: [id number] Name: BERRY ABAD JOVANA Rep #: [id number] : 1945 Provider: Dr. Giacomo Philip MD Age/Sex: 79/F Location: [facility] Status: Signed Intake Vital Signs 07/12/24 11:30 03/06/25 14:56 Height 5 ft 4 in 5 ft 4 in Intake Visit Reasons: L BREAST MASS Chief Complaint: L breast mass Allergies bupropion HCl (From Zyban) Allergy (Severe, Verified 03/07/25 14:59) Hives red dye Allergy (Mild, Verified 03/07/25 14:59) Itching bupropion (From Zyban) Allergy (Verified 03/07/25 14:59) Hives acetaminophen (From Vicodin) Adverse Reaction (Verified 03/07/25 14:59) N/V hydrocodone (From Vicodin) Adverse Reaction (Verified 03/07/25 14:59) N/V hydromorphone Adverse Reaction (Verified 03/07/25 14:59) constipation Medications ???Medication ???Instructions ???Recorded ???Confirmed ???Type cwqcvrwy-sihl-dmnc 8 mg-folic 400 1 ea PO DAILY 05/27/16 03/07/25 H istory mcg-K 50 mcg-lutein 300 mcg tablet omega-3 fatty acids 1,000 mg 1,000 mg PO DAILY 05/27/16 5 History capsule benzonatate 200 mg capsule 200 mg PO TID PRN cough #20 caps 0 03/16/18 03/07/25 Rx antiarthritic combination no.2 900 mg PO 06/04/20 03/07/25 History mg tablet (glucosamine-chondroi tin) atorvastatin 40 mg tablet 40 mg PO QHS #90 tabs 07/12/2409/19 Rx famotidine-Ca carb-mag hydrox 10 1 tab PO DAILY PRN 07/12/24 History mg-800 mg-165 mg chewable tablet (Pepcid Complete) metoprolol succinate 25 mg 25 mg PO DAILY #90 tabs 07/12/24 0 03/07/25 Rx tablet,extended release 24 hr (Toprol XL) coconut oil 1,000 mg capsule mg PO 03/06/25 03/07/25 History levothyroxine 25 mcg tablet 75 mcg PO DAILY 03/06/25 03/07/25 History melatonin 10 mg capsule 10 mg PO HS PRN 03/06/25 03/07/25 History Have you fallen in the past year?: No PFSH Medical History Laceration of left middle finger Status post placement of implantable loop recorder Syncope and collapse Chest tightness Non-rheumatic aortic stenosis Subdural hemorrhage Hematoma of scalp Fall Syncope Right bundle branch block (RBBB) GERD (gastroesophageal reflux disease) Cancer of right breast Hyperlipidemia Arthritis Essential (primary) hypertension Surgical History History of breast reconstruction H/O section History of appendectomy History of mastectomy Family History Brother , age 49 Cancer lung Social History Smoking Status: Former smoker quit date: 09/26/04 pack-years: 40 Tobacco: How many years used: 40 how long ago did patient quit smokin years ago second hand exposure: Yes alcohol intake: current alcohol intake frequency: 0-2 drinks per day Alcohol type: wine HPI L BREAST MASS Details: The patient is a 79-year-old female presenting with a suspicious lump in the left breast. Previous medical history reveals a mastectomy on the right breast due to cancer approximately 40 years ago, followed by reconstruction using silicone implants, which eventually ruptured. This rupture was confirmed much later through MRI after several attempts to receive a diagnosis. Currently, the patient has undergone a biopsy for a potential malignancy on the left side. She had a mammogram and ultrasound, and a biopsy was performed to determine the nature of the lump. The patient has opted for surgical management over chemotherapy or radiation if malignancy is confirmed, emphasizing her preference following her previous experiences with breast surgery. Attestation: Documentation on this patient encounter was supported using ambient scribe technology/ voice AI technology. The patient consented to recording for the purpose of documenting the encounter. Shandra hadley reviewed content of the generated note prior to signature. ROS Details - Breast: Reports presence of suspicious lump in left breast. - Hematologic/Lymphatic : Denies history of bleeding or clotting disorders. General General: Yes good health; No fatigue, fever(s) or weight loss HENMT HENMT: Yes rhinitis Endo Endocrine: No thyroid disease, polydipsia, heat intolerance, cold intolerance, hepatitis or excessive urine Skin Skin: No Bleeding, bruising, changing moles or suspicious lesion Musc Musculoskeletal: Yes back pain; No joint pain, joint stiffness, muscle weakness, osteoarthritis or Muscle aches/ myalgia Neuro Neurological: No headache(s), No lightheadedness and No numbness Cardio Cardiovascular: No ches (more content not included)... Normal [facility] Surgery Visit Reporton 03-06 Surgery Visit Report [facility] [address] [place] [address] OFFICE VISIT Date of Service: 03/06/25 MR#: [id number] Acct: [id number] Name: BERRY ABAD Rep #: [id number] : 1945 Provider: Dr. Rufina valenzuela MD Age/Sex: 79/F Location: [facility] Status: Signed Intake Vital Signs 07/12/24 11:30 03/06/25 14:56 Height 5 ft 4 in 5 ft 4 in Weight: 148 lb BMI 25.4 BP 162/89 H Blood Pressure Location Lt brachial Position Sitting Respiration 16 Intake Visit Reasons: BIRADS 5 Chief Complaint: birads 5 left Consumer Safety Inspector Required: No Is patient in pain?: No Allergies bupropion HCl (From Zyban) Allergy (Severe, Verified 03/06/25 14:56) Hives red dye Allergy (Mild, Verified 03/06/25 14:58) Itching bupropion (From Zyban) Allergy (Verified 03/06/25 14:56) Hives acetaminophen (From Vicodin) Adverse Reaction (Verified 03/06/25 14:56) N/V hydrocodone (From Vicodin) Adverse Reaction (Verified 03/06/25 14:56) N/V hydromorphone Adverse Reaction (Verified 03/06/25 14:56) constipation Medications ???Medication ???Instructions ???Recorded ???Confirmed ???Type lgtxsyrq-pfhw-eztq 8 mg-folic 400 1 ea PO DAILY 05/27/16 03/06/25 H istory mcg-K 50 mcg-lutein 300 mcg tablet omega-3 fatty acids 1,000 mg 1,000 mg PO DAILY 05/27/16 5 History capsule benzonatate 200 mg capsule 200 mg PO TID PRN cough #20 caps 0 03/16/18 03/06/25 Rx antiarthritic combination no.2 900 mg PO 06/04/20 03/06/25 History mg tablet (glucosamine-chondroi tin) atorvastatin 40 mg tablet 40 mg PO QHS #90 tabs 07/12/2408/20 Rx famotidine-Ca carb-mag hydrox 10 1 tab PO DAILY PRN 07/12/24 History mg-800 mg-165 mg chewable tablet (Pepcid Complete) metoprolol succinate 25 mg 25 mg PO DAILY #90 tabs 07/12/24 0 03/06/25 Rx tablet,extended release 24 hr (Toprol XL) coconut oil 1,000 mg capsule mg PO 03/06/25 03/06/25 History levothyroxine 25 mcg tablet 75 mcg PO DAILY 03/06/25 03/06/25 History melatonin 10 mg capsule 10 mg PO HS PRN 03/06/25 03/06/25 History Have you fallen in the past year?: No PFSH Medical History Laceration of left middle finger Status post placement of implantable loop recorder Syncope and collapse Chest tightness Non-rheumatic aortic stenosis Subdural hemorrhage Hematoma of scalp Fall Syncope Right bundle branch block (RBBB) GERD (gastroesophageal reflux disease) Cancer of right breast Hyperlipidemia Arthritis Essential (primary) hypertension Surgical History History of breast reconstruction H/O section History of appendectomy History of mastectomy Family History Brother , age 49 Cancer lung Social History Smoking Status: Former smoker quit date: 09/26/04 pack-years: 40 Tobacco: How many years used: 40 how long ago did patient quit smokin years ago second hand exposure: Yes alcohol intake: current alcohol intake frequency: 0-2 drinks per day Alcohol type: wine HPI HPI HPI: 79-year-old female presents due to abnormal mammogram and ultrasound. Irregular hypoechoic mass left breast 1:00 6 cm from the nipple with vascular flow adjacent given a BI-RADS 5. Patient does have past past medical history for right breast cancer. Patient did undergo a mastectomy and reconstruction at that time patient also had a rupture of the implants and did have reconstruction again at [facility]. Patient denies any breast pain or lumps in her breast or trauma to her breast. Age at menses 13, age of of first child 19, no family history of breast cancer other than herself. Previous breast biopsies 1. ROS General General: Yes breast cancer; No weight change, appetite, fatigue, colon cancer or weakness HEENT HEENT: No difficulty swallowing, eye injury, eye surgery, swollen glands or hoarseness Endo Endocrine: No thyroid disease, diabetes mellitus, thyroid cancer, Hair loss, heat intolerance or cold intolerance Skin Skin: No rash or changing moles Breast Breast: No left breast lump, right breast lump, nipple discharge, breast pain, abnormal mammogram, abnormal US or breast enlargement Musc Musculoskeletal: No back problems, arthritis, rheumatoid arthritis, gout or joint pain Cardio Cardiovascular: No murmur, pacemaker, heart disease, atrial fibrillation, high blood pressure, heart attack, heart stent, palpitations, shortness of breath with exertion or chest pain Psych Psychiatric: No depression, anxiety or hearing voices Resp Respiratory: No shortness of breath, No sleep apnea, No cough, No COPD, No asthma, No (more content not included)... Normal [facility] Breast Complete Unilateralon 02-20-2025 Breast Complete Unilateral [facility] [address] [place] [address] Breast Complete Unilateral MR#: [id number] Acct: [id number] Name: BERRY ABAD JOVANA Rep #: [id number] : 1945 F 79 From: Allison Wilson MD PCP: Dr. Aria Sanchez MD Status: [facility] Study: Breast Complete Unilateral Date of Exam: 02/20 Exam# [id number] Ordering Dr: Aria Sanchez MD PROCEDURE: BREAST COMPLETE UNILATERAL 02/20/2025 REASON FOR EXAM: 79-year-old female recalled for screening for a left breast mass on examination of 02/15/2025. Personal history of right breast cancer status post mastectomy in 1983 with reconstruction and implant. COMPARISON: 02/15/2025, 02/15/2024, 11/15/2022 TECHNIQUE: Targeted left breast ultrasound. FINDINGS: ULTRASOUND: Ultrasound was targeted to the left breast. Follow-up examination performed for the irregular left breast mass in the upper-outer quadrant on examination of 02/15/2025. On the present examination, there is an irregular hypoechoic mass in the left breast at 1 o'clock 6 cm from the nipple measuring 0.9 x 0.8 x 0.5 cm. There is vascular flow seen adjacent to the mass. The remainder of the left breast was imaged demonstrating no additional suspicious sonographic findings. There is no left axillary lymphadenopathy. US/Breast Complete Unilateral IMPRESSION: Suspicious left breast mass at 1 o'clock 6 cm from the nipple requires further evaluation. Recommend tissue sampling with ultrasound-guided core needle biopsy. BI-RADS 5: HIGHLY SUGGESTIVE OF MALIGNANCY. Reading Location: [facility] CC: Dr. Aria Sanchez MD Industrial Machine Assembler: Signed Normal [facility] Breast imaging reportOrdered By: Allison Wilson on 02-15-2025 Study report [facility] Services [address] [place], [place] [address] SCRN MAMM (CAD)W/WALESKA BILAT MR#: [id number] Acct: [id number] Name: BERRY ABAD JOVANA Rep #: [id number] : 1945 F 79 From: Kirsten Wilson MD PCP: Dr. Aria Sanchez MD Status: REG [facility] Study:SCRN MAMM (CAD)W/WALESKA BILAT Date of Exa m: 02/15/25 Exam# [id number] Ordering Dr: Jaylon Sanchez MD EXAM: SCRN MAMM (CAD)W/WALESKA BILAT 02/15/2025 CLINICAL HISTORY: F, Age 79 y/o , SCREENING TECHNIQUE: Left screening digital breast tomosynthesis with 2D and 3D images. Computer aided detection. COMPARISON: Prior exam(s) dated 02/15/2024, 11/15/2022. FINDINGS: TISSUE DENSITY: The breast tissue is composed of scattered area of fibroglandular density. Left breast mammographic Findings: There is an irregular high density mass in the upper-outer left breast at middledepth. BI/SCRN MAMM (CAD)W/WALESKA BILAT IMPRESSION: The irregular mass in the upper outer left breast requires further evaluation. Recommend diagnostic ultrasound of the left breast and left axilla. Left Breast: BIRADS 0 Incomplete: Need additional imaging evaluation and/or prior mammograms for comparison.. OVERALL FINAL ASSESSMENT: BIRADS 0 Incomplete: Need additional imaging evaluation and/or prior mammograms for comparison.. RECOMMENDATION: Ultrasound. A letter with findings and recommendations will be mailed to the patient. Reading Location: [facility] CC: Dr. Aria Sanchez MD ~ Industrial Machine Assembler: Signed [facility] SCRN MAMM (CAD)W/WALESKA BILATo n 02-15-2025 SCRN MAMM (CAD)W/WALESKA BILAT [facility] Services [address] [place] [id number] SCRN MAMM (CAD)W/WALESKA BILAT MR#: [id number] Acct: [id number] Name: BERRY ABAD JOVANA Rep #: [id number] : 1945 F 79 From: Allison Wilson MD PCP: Dr. Aria Sanchez MD Status: REG [facility] Study: SCRN MAMM (CAD)W/WALESKA BILAT Date of Exam: 01/25 12/18 Exam# [id number] Ordering Dr: Aria Sanchez MD EXAM: SCRN MAMM (CAD)W/WALESKA BILAT 02/15/2025 CLINICAL HISTORY: F, Age 79 y/o , SCREENING TECHNIQUE: Left screening digital breast tomosynthesis with 2D and 3D images. Computer aided detection. COMPARISON: Prior exam(s) dated 02/15/2024, 11/15/2022. FINDINGS: TISSUE DENSITY: The breast tissue is composed of scattered area of fibroglandular density. Left breast mammographic Findings: There is an irregular high density mass in the upper-outer left breast at middle depth. BI/SCRN MAMM (CAD)W/WALESKA BILAT IMPRESSION: The irregular mass in the upper outer left breast requires further evaluation. Recommend diagnostic ultrasound of the left breast and left axilla. Left Breast: BIRADS 0 Incomplete: Need additional imaging evaluation and/or prior mammograms for comparison.. OVERALL FINAL ASSESSMENT: BIRADS 0 Incomplete: Need additional imaging evaluation and/or prior mammograms for comparison.. RECOMMENDATION: Ultrasound. A letter with findings and recommendations will be mailed to the patient. Reading Location: [facility] CC: Dr. Aria Sanchez MD Industrial Machine Assembler: Signed Normal [facility] Urine Cultureon 02-07-2025 [facility] Order Date: 02/04/25 Order Info: 630-4 - CUUR Urine Culture Urine Culture Urine Culture Escherichia coli [place] Count 80,000-100,000 Escherichia coli: REACTION Ampicillin Islt CLIFFORD <=2 Ampicillin+Sulbac Islt CLIFFORD <=2 S Cefepime Islt CLIFFORD <=0.12 S cefTRIAXone Islt CLIFFORD <=0.25 S Ciprofloxacin Islt CLIFFORD <=0.06 S B-Lactamase Extended Susc Islt NEG Gentamicin Islt CLIFFORD <=1 S levoFLOXacin Islt CLIFFORD <=0.12 S Meropenem Islt CLIFFORD <=0.25 S Pip+Tazo Islt CLIFFORD <=4 S TMP SMX Islt CLIFFORD <=20 S Normal [facility] Comment on above: Performed By: #### L 400.0001, M100.2200, L500.4100, L500.4050, L501.9520 ####[facility] [address] [place], [place], [address] Anion gap in Serum or Plasma Ordered By: Aria Sanchez on 02-05-2025 Anion gap [Moles/Vol] 11 mmol/L 02-07 [facility] BUN/creatinine ratioOrdered By: Aria Sanchez on 02-05-2025 Urea nitrogen/Creatinine [Mass ratio] 15.8 mg/mg 07-15 [facility] Bilirubin Test strip Ql (U)O rdered By: Aria Sanchez on 02-05-2025 Bilirubin Ql (U) Negative Negative [facility] Bilirubin, totalOrdered By: Aria Sanchez on 02-05-2025 Bilirubin [Mass/Vol] 0.72 mg/dL 0.00-1.30 [facility] Calculated very low density lipoprotein (VLDL) cholesterol measurementOrdered By: Aria Sanchez on 02-05-2025 Calculated very low density lipoprotein (VLDL) cholesterol measurement 24 mg/dL 5-40 [facility] Carbon dioxide, total [Moles /volume] in Central venous bloodOrdered By: Aria Sanchez on 02-05-2025 CO2 [Moles/Vol] 23.9 mmol/L 21.0-32.0 [facility] Chloride assayOrdered By: Jaylon Sanchez on 02-05-2025 Chloride [Moles/Vol] 106 mmol/L 98-108 [facility] Comprehensive Metabolic Prof ilon 02-05-2025 Albumin [Mass/Vol] 4.2 g/dL Normal 3.4-4.8 [facility] Comment on above: Order Comment: Order Date: 02/04/25 Order Info: [id number] - CMP Order Info: [id number] - LIPID Order Info: [id number] - TSH Performed By: #### L 400.0001, M100.2200, L500.4100, L500.4050, L501.9520 #### [facility] [address] [place], [address] Albumin/Globulin [Mass ratio] 1.8 {ratio} Normal 0.9-2.4 [facility] Comment on above: Order Comment: Order Date: 02/04/25 Order Info: [id number] - CMP Order Info: [id number] - LIPID Order Info: [id number] - TSH Performed By: #### L 400.0001, M100.2200, L500.4100, L500.4050, L501.9520 #### [facility] [address] [facility], [address] ALK PHOS 80 U/L Normal 35-104 [facility] Comment on above: Order Comment: Order Date: 02/04/25 Order Info: [id number] - CMP Order Info: [id number] - LIPID Order Info: [id number] - TSH Performed By: #### L 400.0001, M100.2200, L500.4100, L500.4050, L501.9520 #### [facility] [address] [place], [address] ALT [Catalytic activity/Vol] 23 U/L Normal <=34 [facility] Comment on above: Order Comment: Order Date: 02/04/25 Order Info: [id number]- - CMP Order Info: [id number] - LIPID Order Info: 3 - TSH Performed By: #### L 400.0001, M100.2200, L500.4100, L500.4050, L501.9520 #### [facility] [address] [place], [address] AST [Catalytic activity/Vol] 27 U/L Normal <=31 [facility] Comment on above: Order Comment: Order Date: 02/04/25 Order Info: 07 - CMP Order Info: [id number] - LIPID Order Info: [id number] - TSH Performed By: #### L 400.0001, M100.2200, L500.4100, L500.4050, L501.9520 #### [facility] [address] [place], [address] Bilirubin [Mass/Vol] 0.72 mg/dL Normal 0.00-1.30 [facility] Comment on above: Order Comment: Order Date: 02/04/25 Order Info: [id number] - CMP Order Info: [id number] - LIPID Order Info: [id number] - TSH Performed By: #### L 400.0001, M100.2200, L500.4100, L500.4050, L501.9520 #### [facility] [address] [place], [address] BUN/CRE 15.8 RATIO Normal 10-20 [facility] Comment on above: Order Comment: Order Date: 02/04/25 Order Info: [id number] - CMP Order Info: [id number] - LIPID Order Info: 3 - TSH Performed By: #### L 400.0001, M100.2200, L500.4100, L500.4050, L501.9520 #### [facility] [address] [place], [address] Calcium [Mass/Vol] 9.2 mg/dL Normal 7.6-11.0 [facility] Comment on above: Order Comment: Order Date: 02/04/25 Order Info: [id number] - CMP Order Info: - LIPID Order Info: 3 - TSH Performed By: #### L 400.0001, M100.2200, L500.4100, L500.4050, L501.9520 #### [facility] [address] [place], [address] Chloride [Moles/Vol] 106 mmol/L Normal 98-108 [facility] Comment on above: Order Comment: Order Date: 02/04/25 Order Info: [id number] - CMP Order Info: - LIPID Order Info: 3 - TSH Performed By: #### L 400.0001, M100.2200, L500.4100, L500.4050, [id number] #### [facility] [address] [place], [address] CO2 [Moles/Vol] 23.9 mmol/L Normal 21.0-32.0 [facility] Comment on above: Order Comment: Order Date: 02/04/25 Order Info: [id number] - CMP Order Info: [id number] - LIPID Order Info: 3 - TSH Performed By: #### L 400.0001, M100.2200, L500.4100, L500.4050, [id number] #### [facility] [address] [place], [address] Creatinine [Mass/Vol] 1.06 mg/dL Normal 0.70-1.20 [facility] Comment on above: Order Comment: Order Date: 02/04/25 Order Info: [id number] - CMP Order Info: - LIPID Order Info: [id number] - TSH Performed By: #### L 400.0001, M100.2200, L500.4100, L500.4050, [id number] #### [facility] [address] [place], [address] GAP 11 Normal 5-15 [facility] Comment on above: Order Comment: Order Date: 02/04/25 Order Info: [id number]- - CMP Order Info: - LIPID Order Info: [id number] - TSH Performed By: #### L 400.0001, M100.2200, L500.4100, L500.4050, [id number] #### [facility] [address] [place], [address] GFR/1.73 sq M.predicted among non-blacks MDRD (S/P/Bld) [Vol rate/Area] 53 mL/min/{1.73_m2} Low >60 [facility] Comment on above: Order Comment: Order Date: 02/04/25 Order Info: [id number] - CMP Order Info: - LIPID Order Info: 3 - TSH Result Comment: mL/m in/1.73m2 CKD-EPI Creatinine Equation (2020) Performed By: #### L 400.0001, M100.2200, L500.4100, L500.4050, [id number] #### [facility] [address] [place], [address] Globulin (S) [Mass/Vol] 2.4 g/dL Normal 2.2-4.2 [facility] Comment on above: Order Comment: Order Date: 02/04/25 Order Info: [id number] - CMP Order Info: [id number] - LIPID Order Info: [id number] - TSH Performed By: #### L 400.0001, M100.2200, L500.4100, L500.4050, [id number] #### [facility] [address] [place], [address] Glucose [Mass/Vol] 96 mg/dL Normal 70-99 [facility] Comment on above: Order Comment: Order Date: 02/04/25 Order Info: [id number]- - CMP Order Info: [id number] - LIPID Order Info: 3 - TSH Performed By: #### L 400.0001, M100.2200, L500.4100, L500.4050, [id number] #### [facility] [address] [place], [address] Potassium [Moles/Vol] 4.2 mmol/L Normal 3.3-5.1 [facility] Comment on above: Order Comment: Order Date: 02/04/25 Order Info: [id number] - CMP Order Info: [id number] - LIPID Order Info: [id number] - TSH Performed By: #### L 400.0001, M100.2200, L500.4100, L500.4050, [id number] #### [facility] [address] [place], [address] Sodium [Moles/Vol] 141 mmol/L Normal 133-145 [facility] Comment on above: Order Comment: Order Date: 02/04/25 Order Info: [id number] - CMP Order Info: [id number] - LIPID Order Info: [id number] - TSH Performed By: #### L 400.0001, M100.2200, L500.4100, L500.4050, [id number] #### [facility] [address] [place], [address] T PROT 6.6 g/dL Normal 5.9-8.4 [facility] Comment on above: Order Comment: Order Date: 02/04/25 Order Info: [id number]- - CMP Order Info: [id number] - LIPID Order Info: 3 - TSH Performed By: #### L 400.0001, M100.2200, L500.4100, L500.4050, [id number] #### [facility] [address] [place], [address] Urea nitrogen [Mass/Vol] 17 mg/dL Normal 4-19 [facility] Comment on above: Order Comment: Order Date: 02/04/25 Order Info: [id number] - CMP Order Info: [id number] - LIPID Order Info: [id number] - TSH Performed By: #### L 400.0001, M100.2200, L500.4100, L500.4050, [id number] #### [facility] [address] [place], [place], [address] Glomerular filtration rate ( GFR) estimation/1.73 sq m using serum, plasma, or whole bOrdered By: Aria Sanchez on 02-05-2025 GFR/1.73 sq M.predicted among non-blacks MDRD (S/P/Bld) [Vol rate/Area] 53 mL/min/{1.73_m2} Low >60 [facility] Comment on above: mL/min/1.73m2 CKD-EP I Creatinine Equation (2020) Ketones Test strip Ql (U)Ord ered By: Aria Sanchez on 02-05-2025 Ketones Ql (U) Negative Negative [facility] LDL calc ser/plasOrdered By: Aria Sanchez on 02-05-2025 Cholesterol in LDL [Mass/Vol] 156 mg/dL [facility] Comment on above: Qgsfrpjejh=964-309 m g/dL & Higher Inda=683 mg/dL or greater Laboratory - Chemistry and C hemistry - challengeOrdered By: Aria Sanchez on 02-05-2025 AST [Catalytic activity/Vol] 27 U/L <32 [facility] Lipid Profileon 02-05-2025 CHOL:HDL 3.76 Normal [facility] Comment on above: Order Comment: Order Date: 02/04/25 Order Info: [id number] - CMP Order Info: [id number] - LIPID Order Info: [id number] - TSH Performed By: #### L 400.0001, M100.2200, L500.4100, L500.4050, [id number] #### [facility] [address] [place], [place], [address] Cholesterol [Mass/Vol] 246 mg/dL High <=[address] [facility] Comment on above: Order Comment: Order Date: 02/04/25 Order Info: [id number]- - CMP Order Info: [id number] - LIPID Order Info: 3 - TSH Result Comment: Chol esterol level, Desirable <200 mg/dL Borderline high cholesterol 200-239 mg/dL High cholesterol >=240 mg/dL Recommendations of the NCEP Adult Treatment Panel for the following risk-cutoff thresholds for the [place] population. Performed By: #### L 400.0001, M100.2200, L500.4100, L500.4050, [id number] #### [facility] [address] [place], [address] Cholesterol in HDL [Mass/Vol] 65 mg/dL Normal [facility] Comment on above: Order Comment: Order Date: 02/04/25 Order Info: 0786 - CMP Order Info: [id number] - LIPID Order Info: [id number] - TSH Result Comment: Sandra onal Cholesterol Education Program (NCEP) guidelines: <40 mg/dL: Low HDL-cholesterol (major risk factor for CHD) >= 60 mg/dL: High HDL-cholesterol (negative risk factor for CHD) HDL-cholesterol is affected by a number of factors, e.g. smoking, exercise, hormones, sex and age. Performed By: #### L 400.0001, M100.2200, L500.4100, L500.4050, L501.9520 #### [facility] [address] [place], [place], [address] Cholesterol in LDL [Mass/Vol] 156 mg/dL Normal [facility] Comment on above: Order Comment: Order Date: 02/04/25 Order Info: [id number] - CMP Order Info: [id number] - LIPID Order Info: 3 - TSH Result Comment: Bord nabmfc=202-016 mg/dL Higher Zmpz=197 mg/dL or greater Performed By: #### L 400.0001, M100.2200, L500.4100, L500.4050, L501.9520 #### [facility] [address] [place], [address] Cholesterol in VLDL [Mass/Vol] 24 mg/dL Normal 5-40 [facility] Comment on above: Order Comment: Order Date: 02/04/25 Order Info: [id number] - CMP Order Info: [id number] - LIPID Order Info: [id number] - TSH Performed By: #### L 400.0001, M100.2200, L500.4100, L500.4050, [id number] #### [facility] [address] [place] [place], [address] Triglyceride [Mass/Vol] 121 mg/dL Normal [facility] Comment on above: Order Comment: Order Date: 02/04/25 Order Info: [id number] - CMP Order Info: [id number] - LIPID Order Info: [id number] - TSH Result Comment: The drugs N-Acetylcysteine and Metamizole may falsely depress this assay. Normal range: <150 mg/dL Borderline High: 150-199 mg/dL High: 200-499 mg/dL Very High: >500 mg/dL Performed By: #### L 400.0001, M100.2200, L500.4100, L500.4050, L501.9520 #### [facility] [address] [place] [place], [address] Microscopic analysis of urin e for red blood cells (RBC)Ordered By: Aria Sanchez on 02-05-2025 Microscopic analysis of urine for red blood cells (RBC) 0-5 SEEN /hpf 0-5 [facility] Mucus LM Ql (Urine sed)Order ed By: Aria Sanchez on 02-05-2025 Mucus Ql (Urine sed) 0 SEEN /hpf [facility] Nitrite Test strip Ql (U)Ord ered By: Aria Sanchez on 02-05-2025 Nitrite Ql (U) Positive High Negative [facility] Potassium measurement (mass/ volume)Ordered By: Aria Sanchez on 02-05-2025 Potassium (Unsp spec) [Mass/Vol] 4.2 mmol/L 3.3-5.1 [facility] Protein Test strip Ql (U)Ord ered By: Aria Sanchez on 02-05-2025 Protein Ql (U) 30 mg/dl High Negative [facility] Random urine creatinine moncho urement (mass/volume)Ordered By: Aria Sanchez on 02-05-2025 Creatinine Unsp time (U) [Mass/Vol] 70.00 mg/dL 28.00-217.00 [facility] Screening total cholesterol/ high density lipoprotein (HDL) cholesterol ratioOrdered By: Aria Sanchez on 02-05-2025 Cholesterol.total/Choles terol in HDL [Mass ratio] 3.76 {ratio} [facility] Serum creatinine measurement (mass/volume)Ordered By: Aria Sanchez on 02-05-2025 Creatinine [Mass/Vol] 1.06 mg/dL 0.70-1.20 [facility] Serum globulin measurementOr dered By: Aria Sanchez on 02-05-2025 Globulin (S) [Mass/Vol] 2.4 g/dL 2.2-4.2 [facility] Serum glucose measurement (m ass/volume)Ordered By: Aria Sanchez on 02-05-2025 Glucose [Mass/Vol] 96 mg/dL 70-99 [facility] Serum or plasma alanine kirby otransferase (ALT) measurementOrdered By: Aria Sanchez on 02-05-2025 ALT [Catalytic activity/Vol] 23 U/L <35 [facility] Serum or plasma albumin moncho urement (mass/volume)Ordered By: Aria Sanchez on 02-05-2025 Albumin [Mass/Vol] 4.2 g/dL 3.4-4.8 [facility] Serum or plasma albumin/glob ulin mass ratioOrdered By: Aria Sanchez on 02-05-2025 Albumin/Globulin [Mass ratio] 1.8 {ratio} 0.9-2.4 [facility] Serum or plasma alkaline sandie sphatase measurementOrdered By: Aria Sanchez on 02-05-2025 ALP [Catalytic activity/Vol] 80 U/L 35-104 [facility] Serum or plasma calcium moncho urement (mass/volume)Ordered By: Aria Sanchez on 02-05-2025 Calcium [Mass/Vol] 9.2 mg/dL 7.6-11.0 [facility] Serum or plasma cholesterol in HDL measurement (mass/volume)Ordered By: Aria Sanchez on 02-05-2025 Cholesterol in HDL [Mass/Vol] 65 mg/dL >40 [facility] Comment on above: National Cholesterol Education Program (NCEP) guidelines:<40 mg/dL: Low HDL-cholesterol (major risk factor for CHD)>= 60 mg/dL: High HDL-cholesterol (negative risk factor for CHD)HDL-cholesterol is affected by a number of factors, e.g. smoking, exercise, hormones, sex and age. Serum or plasma cholesterol measurement (mass/volume)Ordered By: Aria Sanchez on 02-05-2025 Cholesterol [Mass/Vol] 246 mg/dL High <[address] [facility] Comment on above: Cholesterol level, D esirable <200 mg/dLBorderline high cholesterol 200-239 mg/dLHigh cholesterol >=240 mg/dLRecommendations of the NCEP Adult Treatment Panel for the following risk-cutoff thresholds for the [place] population. Serum or plasma urea nitroge n measurement (mass/volume)Ordered By: Aria Sanchez on 02-05-2025 Urea nitrogen [Mass/Vol] 17 mg/dL 4-19 [facility] Sodium levelOrdered By: Aria Sanchez on 02-05-2025 Sodium [Moles/Vol] 141 mmol/L 133-145 [facility] Squamous epithelial cells de tection in urine sediment by light microscopyOrdered By: Aria Sanchez on 02-05-2025 Epithelial cells.squamous LM Ql (Urine sed) 0-5 SEEN /hpf 5-10 [facility] TSH DL <= 0.005 mIU/L QnOrde red By: Aria Sanchez on 02-05-2025 TSH Qn 0.902 uIU/mL 0.300-4.200 [facility] Thyroid Stim Hormone (TSH)on 02-05-2025 TSH 0.902 uIU/mL Normal 0.300-4.200 [facility] Comment on above: Order Comment: Order Date: 02/04/25Order Info: [id number] - CMPOrder Info: [id number] - LIPIDOrder Info: [id number] - TSH Performed By: #### L 400.0001, M100.2200, L500.4100, L500.4050, L501.9520 ####[facility] [address] [place], [address] Total proteinOrdered By: Maria T Sanchez on 02-05-2025 Protein [Mass/Vol] 6.6 g/dL 5.9-8.4 [facility] Triglycerides measurementOrd ered By: Aria Sanchez on 02-05-2025 Triglyceride [Mass/Vol] 121 mg/dL <199 [facility] Comment on above: The drugs N-Acetylcy steine and Metamizole may falsely depress this assay. Normal range: <150 mg/dLBorderline High: 150-199 mg/dLHigh: 200-499 mg/dLVery High: >500 mg/dL Urinalysis, Completeon 02-05 BACTERIA 3+ /hpf Normal None Seen [facility] Comment on above: Order Comment: Order Date: 02/04/25 Order Info: [id number] [facility] RN BURN TO SPECIFY Performed By: #### L 400.0001, M100.2200, L500.4100, L500.4050, L501.9520 #### [facility] [address] [place], [address] EPI,SQUAMOUS 0-5 SEEN Normal 5-10 [facility] Comment on above: Order Comment: Order Date: 02/04/25 Order Info: [id number] [facility] RN BURN TO SPECIFY Performed By: #### L 400.0001, M100.2200, L500.4100, L500.4050, L501.9520 #### [facility] [address] [place], [address] RBC 0-5 SEEN Normal 0-5 [facility] Comment on above: Order Comment: Order Date: 02/04/25 Order Info: [id number] [facility] RN BURN TO SPECIFY Performed By: #### L 400.0001, M100.2200, L500.4100, L500.4050, L501.9520 #### [facility] [address] [place], [address] WBC 50-100 SEEN Normal 0-5 [facility] Comment on above: Order Comment: Order Date: 02/04/25 Order Info: [id number] - [facility] RN BURN TO SPECIFY Performed By: #### L 400.0001, M100.2200, L500.4100, L500.4050, L501.9520 #### [facility] [address] [place], [address] Mucus Ql (Urine sed) 0 SEEN Normal [facility] Comment on above: Order Comment: Order Date: 02/04/25 Order Info: [id number] - UAC RN BURN TO SPECIFY Performed By: #### L 400.0001, M100.2200, L500.4100, L500.4050, L501.9520 #### [facility] [address] [place], [place], [address] Urine albumin measurement [facility] detection limit of 20 mg/L or less (mass/volume)Ordered By: Aria Sanchez on 02-05-2025 Albumin DL <= 20 mg/L (U) [Mass/Vol] 22.4 mg/L NO RANGE EST. [facility] Urine clarityOrdered By: Maria T Sanchez on 02-05-2025 Clarity (U) Cloudy Clear [facility] Urine color determinationOrd ered By: Aria Sanchez on 02-05-2025 Color (U) Yellow Yellow [facility] Urine cultureOrdered By: Maria T Sanchez on 02-05-2025 Bacteria identified Cx Nom (U) Escherichia coli Abnormal [facility] Urine glucose detectionOrder ed By: Aria Sanchez on 02-05-2025 Glucose Ql (U) Normal mg/dl Normal [facility] Urine leukocyte esterase det ection by dipstickOrdered By: Aria Sanchez on 02-05-2025 Leukocyte esterase Test strip Ql (U) 500 /ul High Negative [facility] Urine pHOrdered By: Aria rodriguez on 02-05-2025 pH (U) 6.5 [pH] 5.0 - 8.0 [facility] Urine sediment bacteria coun t by microscopy (number/high power field)Ordered By: Aria Sanchez on 02-05-2025 Bacteria LM.HPF (Urine sed) [#/Area] 3 /[HPF] None Seen [facility] Urine specific gravity measu rementOrdered By: Aria Sanchez on 02-05-2025 Specific gravity (U) [Rel density] 1.010 1.002-1.030 [facility] Urine urobilinogen measureme ntOrdered By: Aria Sanchez on 02-05-2025 Urobilinogen Ql (U) Normal mg/dl Normal [facility] White blood cell countOrdere d By: Aria Sanchez on 02-05-2025 White blood cell count 50-100 SEEN /hpf 0-5 [facility] CBC W/Diff, Automatedon 07-27 Absolute Lymph 1.24 X10 3/uL Normal 0.83-4.51 [facility] Comment on above: Performed By: #### L 500.4050, L506.0400, L100.0100, L501.9520 ####[facility] [address] [place], [address] Absolute Neut 3.4 X10 3/uL Normal 2.0-7.7 [facility] Comment on above: Performed By: #### L 500.4050, L506.0400, L100.0100, L501.9520 ####[facility] [address] [place], [address] Basophils/100 WBC (Bld) 0.9 % Normal 0-1 [facility] Comment on above: Performed By: #### L 500.4050, L506.0400, L100.0100, L501.9520 ####[facility] [address] [place], [address] Eosinophils/100 WBC (Bld) 3.3 % Normal 0-5 [facility] Comment on above: Performed By: #### L 500.4050, L506.0400, L100.0100, L501.9520 ####[facility] [address] [place], [address] Erythrocyte distribution width (RBC) [Ratio] 12.8 % Normal 11.6-14.6 [facility] Comment on above: Performed By: #### L 500.4050, L506.0400, L100.0100, L501.9520 ####[facility] [address] [place], [address] Hematocrit (Bld) [Volume fraction] 44.6 % Normal 37-47 [facility] Comment on above: Performed By: #### L 500.4050, L506.0400, L100.0100, L501.9520 ####[facility] [address] [place], [address] Hemoglobin (Bld) [Mass/Vol] 14.0 g/dL Normal 12.0-15.0 [facility] Comment on above: Performed By: #### L 500.4050, L506.0400, L100.0100, L501.9520 ####[facility] [address] [place], [address] IG% 0.600 Normal 0.0-0.9 [facility] Comment on above: Result Comment: IG% - Immature Granulocytes (promyelocytes, myelocytes and metamyelocytes) > 1% indicates that a LEFT SHIFT is Present. Performed By: #### L 500.4050, L506.0400, L100.0100, L501.9520 ####[facility] [address] [place], [address] Lymphocytes/100 WBC (Bld) 22.9 % Normal 19-41 [facility] Comment on above: Performed By: #### L 500.4050, L506.0400, L100.0100, L501.9520 ####[facility] [address] [place], [address] MCH (RBC) [Entitic mass] 31.3 pg Normal 27.0-32.0 [facility] Comment on above: Performed By: #### L 500.4050, L506.0400, L100.0100, L501.9520 ####[facility] [address] [place], [address] MCHC (RBC) [Mass/Vol] 31.4 g/dL Low 32-36 [facility] Comment on above: Performed By: #### L 500.4050, L506.0400, L100.0100, L501.9520 ####[facility] [address] [place], [address] MCV (RBC) [Entitic vol] 99.8 fL High 81-99 [facility] Comment on above: Performed By: #### L 500.4050, L506.0400, L100.0100, L501.9520 ####[facility] [address] [place], [address] Monocytes/100 WBC (Bld) 10.4 % High 0-10 [facility] Comment on above: Performed By: #### L 500.4050, L506.0400, L100.0100, L501.9520 ####[facility] [address] [place], [address] Neutrophils/100 WBC (Bld) 61.9 % Normal 47-70 [facility] Comment on above: Performed By: #### L 500.4050, L506.0400, L100.0100, [id number] ####[facility] [address] [place], [address] Nucleated RBC (Bld) [#/Vol] 0 10*3/uL Normal 0-5 [facility] Comment on above: Performed By: #### L 500.4050, L506.0400, L100.0100, L501.9520 ####[facility] [address] [place], [address] Platelet mean volume (Bld) [Entitic vol] 9.8 fL Normal 6.2-12.0 [facility] Comment on above: Performed By: #### L 500.4050, L506.0400, L100.0100, L501.9520 ####[facility] [address] [place], [address] Platelets (Bld) [#/Vol] 243 10*3/uL Normal 150-450 [facility] Comment on above: Performed By: #### L 500.4050, L506.0400, L100.0100, [id number] ####[facility] [address] [place], [address] RBC (Bld) [#/Vol] 4.47 10*6/uL Normal 4.2-5.4 [facility] Comment on above: Performed By: #### L 500.4050, L506.0400, L100.0100, [id number] ####[facility] [address] [place], [address] RDW SD 47.2 fl High 35.1-43.9 [facility] Comment on above: Performed By: #### L 500.4050, L506.0400, L100.0100, [id number] ####[facility] [address] [place], [address] WBC (Bld) [#/Vol] 5.4 10*3/uL Normal 4.4-11.0 [facility] Comment on above: Performed By: #### L 500.4050, L506.0400, L100.0100, L501.9520 ####[facility] [address] [place], [address] [facility] Albumin [Mass/Vol] 3.7 g/dL Normal 3.2-5.0 [facility] Comment on above: Performed By: #### L 500.4050, L506.0400, L100.0100, [id number] ####[facility] [address] [place], [address] Albumin/Globulin [Mass ratio] 1.1 {ratio} Normal 0.9-2.4 [facility] Comment on above: Performed By: #### L 500.4050, L506.0400, L100.0100, [id number] ####[facility] [address] [place], [address] ALK P 91 U/L Normal 45-117 [facility] Comment on above: Performed By: #### L 500.4050, L506.0400, L100.0100, [id number] ####[facility] [address] [place], [address] ALT [Catalytic activity/Vol] 41 U/L Normal 13-56 [facility] Comment on above: Performed By: #### L 500.4050, L506.0400, L100.0100, [id number] ####[facility] [address] [place], [address] AST [Catalytic activity/Vol] 31 U/L Normal 15-37 [facility] Comment on above: Performed By: #### L 500.4050, L506.0400, L100.0100, [id number] ####[facility] [address] [place], [address] Bilirubin [Mass/Vol] 1.00 mg/dL Normal 0.20-1.00 [facility] Comment on above: Result Comment: For patients on eltrombopag therapy, use of Dimension Winside TBIL is not recommended. Performed By: #### L 500.4050, L506.0400, L100.0100, [id number] ####[facility] [address] [place], [address] BUN/CRE 15.2 RATIO Normal 10-20 [facility] Comment on above: Performed By: #### L 500.4050, L506.0400, L100.0100, [id number] ####[facility] [address] [place], [address] CA,Total 9.2 mg/dL Normal 8.5-10.1 [facility] Comment on above: Performed By: #### L 500.4050, L506.0400, L100.0100, [id number] ####[facility] [address] [place], [address] Chloride [Moles/Vol] 105 mmol/L Normal 98-107 [facility] Comment on above: Performed By: #### L 500.4050, L506.0400, L100.0100, [id number] ####[facility] [address] [place], [address] CO2 [Moles/Vol] 26.0 mmol/L Normal 21.0-32.0 [facility] Comment on above: Performed By: #### L 500.4050, L506.0400, L100.0100, [id number] ####[facility] [address] [place], [address] Creatinine [Mass/Vol] 1.05 mg/dL High 0.55-1.02 [facility] Comment on above: Result Comment: The validity of the calculated GFR GFRAA in patients over 70 years has not been determined. Clinical correlation is essential. Performed By: #### L 500.4050, L506.0400, L100.0100, L501.9520 ####[facility] [address] [place], [address] EST GFR - AA 65 mL/min Normal >60 [facility] Comment on above: Result Comment: Afri can Beninese GFR Calc Performed By: #### L 500.4050, L506.0400, L100.0100, L501.9520 ####[facility] [address] [place], [address] GAP 8 Normal 5-15 [facility] Comment on above: Performed By: #### L 500.4050, L506.0400, L100.0100, L501.9520 ####[facility] [address] [place], [address] GFR/1.73 sq M.predicted among non-blacks MDRD (S/P/Bld) [Vol rate/Area] 54 mL/min/{1.73_m2} Low >60 [facility] Comment on above: Result Comment: Non- GFR Calc Performed By: #### L 500.4050, L506.0400, L100.0100, L501.9520 ####[facility] [address] [place], [address] Globulin (S) [Mass/Vol] 3.3 g/dL Normal 2.2-4.2 [facility] Comment on above: Performed By: #### L 500.4050, L506.0400, L100.0100, L501.9520 ####[facility] [address] [place], [address] Glucose [Mass/Vol] 99 mg/dL Normal 74-106 [facility] Comment on above: Performed By: #### L 500.4050, L506.0400, L100.0100, L501.9520 ####[facility] [address] [place], [address] Potassium [Moles/Vol] 4.1 mmol/L Normal 3.5-5.1 [facility] Comment on above: Performed By: #### L 500.4050, L506.0400, L100.0100, L501.9520 ####[facility] [address] [place], [address] Sodium [Moles/Vol] 139 mmol/L Normal 136-145 [facility] Comment on above: Performed By: #### L 500.4050, L506.0400, L100.0100, L501.9520 ####[facility] [address] [place], [address] T PROT 7.0 g/dL Normal 6.4-8.2 [facility] Comment on above: Performed By: #### L 500.4050, L506.0400, L100.0100, L501.9520 ####[facility] [address] [place], [address] Urea nitrogen [Mass/Vol] 16 mg/dL Normal 7-18 [facility] Comment on above: Performed By: #### L 500.4050, L506.0400, L100.0100, L501.9520 ####[facility] [address] [place], [address] T4 Free Directon 08-06-2024 T4 FREE DIRECT 0.96 ng/dL Normal 0.76-1.46 [facility] Comment on above: Performed By: #### L 500.4050, L506.0400, L100.0100, L501.9520 ####[facility] [address] [place], [address] Thyroid Stim Hormone (TSH)on 08-06-2024 TSH 1.840 uIU/mL Normal 0.358-3.740 [facility] Comment on above: Performed By: #### L 500.4050, L506.0400, L100.0100, L501.9520 ####[facility] [address] [place], [address] Cardiology Visit Reporton Cardiology Visit Report [facility] [address] [place] [address] OFFICE VISIT Date of Service: 07/12/24 MR#: [id number] Acct: [id number] Name: BERRY ABAD Rep #: [id number] : 1945 Provider: ILA Sanchez rts Age/Sex: 78/F Location: [facility] Status: Signed HPI HPI History of Present Illness Details: This is a pleasant 78-year-old lady that presents to the office today for a cardiovascular outpatient visit. She was last seen here over 3 years ago. Her major concern at this time is that her says that she has been having falls. This is the third episode of a significant fall with a head injury that she has had in a year. She was sitting down and got up and then appeared to be a little confused and had a significant fall. She actually injured her neck and her head she underwent a CAT scan which did not demonstrate any significant abnormality. As you know she does have a history of hypertension, mild aortic stenosis, with her last echocardiogram performed in June 2023 demonstrating ejection fraction of 65% and a mean aortic valve gradient of 12 mmHg. She also has a chronic right bundle branch block. She has complained of some dizziness when she gets up quickly from the seated position and as you know she has had a history of remote right breast mastectomy 1984. From a cardiac standpoint, the patient is doing well. She denies any palpitations, chest pain, pressure or heaviness. She denies SOB, Orthopnea, and PND. She does not have bleeding issues; no blood in urine, stool or nosebleeds. She denies any decrease in energy level, myalgias, or claudication. She does not have edema, or sudden weight gain. She denies dizziness, lightheadedness, syncopal or near syncopal episodes, and headaches. Intake Vital Signs 03/14/24 14:16 05/10/24 10:41 07/12/24 11:30 Height 5 ft 5 in 5 ft 4 in 5 ft 4 in Weight: 146 lb BMI 25.0 BP 119/71 Blood Pressure Location Lt brachial Position Sitting Respiration 18 Pulse 59 L Pulse Source Monitor Pulse Oximetry (%) 95 Intake Visit Reasons: 4 M FU Consumer Safety Inspector Required: No Is patient in pain?: No Allergies bupropion HCl (From Zyban) Allergy (Severe, Verified 07/12/24 11:44) Hives bupropion (From Zyban) Allergy (Verified 07/12/24 11:44) Hives acetaminophen (From Vicodin) Adverse Reaction (Verified 07/12/24 11:44) N/V hydrocodone (From Vicodin) Adverse Reaction (Verified 07/12/24 11:44) N/V hydromorphone Adverse Reaction (Verified 07/12/24 11:44) constipation Medications ???Medication ???Instructions ???Recorded ???Confirmed ???Type nejfpdip-sbxe-wffl 8 mg-folic 400 1 ea PO DAILY 05/27/16 07/12/24 History mcg-K 50 mcg-lutein 300 mcg tablet omega-3 fatty acids 1,000 mg 1,000 mg PO DAILY 05/27/16 07/12/24 History capsule benzonatate 200 mg capsule 200 mg PO TID PRN cough #20 caps 03/16/18 07/12/24 Rx antiarthritic combination no.2 900 mg PO 06/04/20 07/12/24 History mg tablet (glucosamine-chondroi tin) levothyroxine 25 mcg tablet 50 mcg PO DAILY 06/10/21 07/12/24 History atorvastatin 40 mg tablet 40 mg PO QHS #90 tabs 07/12/24 07/12/24 Rx famotidine-Ca carb-mag hydrox 10 1 tab PO DAILY PRN 07/12/24 07/12/24 History mg-800 mg-165 mg chewable tablet (Pepcid Complete) metoprolol succinate 25 mg 25 mg PO DAILY #90 tabs 07/12/24 07/12/24 Rx tablet,extended release 24 hr (Toprol XL) Have you fallen in the past year?: No PFSH Medical History Laceration of left middle finger Status post placement of implantable loop recorder Syncope and collapse Chest tightness Non-rheumatic aortic stenosis Subdural hemorrhage Hematoma of scalp Fall Syncope Right bundle branch block (RBBB) GERD (gastroesophageal reflux disease) Cancer of right breast Hyperlipidemia Arthritis Essential (primary) hypertension Surgical History History of breast reconstruction H/O section History of appendectomy History of mastectomy Family History Brother , age 49 Cancer lung Social History Smoking Status: Former smoker quit date: 09/26/04 pack-years: 40 Tobacco: How many years used: 40 how long ago did patient quit smokin years ago second hand exposure: Yes alcohol intake: current alcohol intake frequency: 0-2 drinks per day Alcohol type: wine ROS Const Const: Negative for fatigue, weakness, fever(s), headache(s), chills, frequent falls, weight gain or weight loss Eyes Eyes: Negative for blind spots, loss of peripheral vision, transient loss of vision, blurry vision, change in v (more content not included)... Normal [facility] Urgent Care Visit Reporton 0 05-10-2024 Urgent Care Visit Report [facility] [address], [address] [place] [address] OFFICE VISIT Date of Service: 05/10/24 MR#: [id number] Acct: [id number] Name: BERRY ABAD JOVANA Rep #: [id number] : 1945 Provider: JOEY Alvarado Age/Sex: 78/F Location: [facility] Status: Signed Intake Vital Signs 05/01/24 12:02 05/10/24 10:41 Height 5 ft 4 in 5 ft 4 in Weight: 145 lb BMI 24.9 BP 148/78 H Blood Pressure Location Lt brachial Position Sitting Respiration 16 Pulse 71 Pulse Source Monitor Temp 97.6 F L Temp Source Temporal Pulse Oximetry (%) 97 Oxygen Delivery Method room air Intake Visit Reasons: SUTURE REMOVAL Chief Complaint: LT MIDDLE FINGER LACERATION Allergies bupropion HCl (From Zyban) Allergy (Severe, Verified 05/01/24 12:04) Hives bupropion (From Zyban) Allergy (Verified 05/01/24 12:04) Hives acetaminophen (From Vicodin) Adverse Reaction (Verified 05/01/24 12:04) N/V hydrocodone (From Vicodin) Adverse Reaction (Verified 05/01/24 12:04) N/V hydromorphone Adverse Reaction (Verified 05/01/24 12:04) constipation Have you fallen in the past year?: No [facility] Medical History (Updated 05/01/24 @ 13:40 by Erick COOK, PA) Laceration of left middle finger Status post placement of implantable loop recorder Syncope and collapse Chest tightness Non-rheumatic aortic stenosis Subdural hemorrhage Hematoma of scalp Fall Syncope Right bundle branch block (RBBB) GERD (gastroesophageal reflux disease) Cancer of right breast Hyperlipidemia Arthritis Essential (primary) hypertension Surgical History History of breast reconstruction H/O section History of appendectomy History of mastectomy Family History Brother , age 49 Cancer lung Social History Smoking Status: Former smoker quit date: 09/26/04 pack-years: 40 Tobacco: How many years used: 40 how long ago did patient quit smokin years ago second hand exposure: Yes alcohol intake: current alcohol intake frequency: 0-2 drinks per day Alcohol type: wine HPI HPI Chief Complaint: LT MIDDLE FINGER LACERATION Details: BERRY ABAD, is a 78 F who presents to the office today for suture removal. Patient had sutures placed 9 days ago to the left middle finger with no complications. ROS Const Constitutional: No other (As above) Exam Const General: cooperative, healthy appearing and no acute distress Orientation: alert and awake Resp Effort Inspection: normal respiratory effort and able to speak in complete sentences Cardio Rate: regular rate Pulses: radial pulses present Skin General: no rashes or lesions noted Trauma: laceration (All sutures removed without complication.) Extrem General: normal to inspection Coding Level of Care Code Off vis,est,level 2 Diagnoses Laceration of left middle finger S61.213A Assessment and Plan Assessment and Plan (1) Laceration of left middle finger: Status: Acute Plan: Sutures removed without complication. Patient advised ongoing wound management. Advised of potential red flags and when appropriate to report to the ED. Patient verbalized understanding and agreement with all the above. Clinical Quality Measures Falls Risk Screening/Assistive Devices Have you fallen in the past year?: No 05/10/24 1145 Date Rico COOK Cosigner Signature: Date (if applicable) CC: Normal [facility] CT BRAIN WO IVCONon 05-07-[address] BRAIN WO IVCON * * *Final Report* * * DATE OF EXAM: May 07 2024 11:22AM [facility] 0504 - CT BRAIN WO IVCON / PROCEDURE REASON: Subdural hematoma (HCC) * * * * Physician Interpretation * * * * EXAMINATION: CT BRAIN WO IVCON CLINICAL HISTORY: Subdural hematoma TECHNIQUE: Serial axial images without IV contrast were obtained from the vertex to the foramen magnum. MQ: CTBWO_3 CT Radiation dose: Integrated Dose-Length Product (DLP) for this visit = 719 mGy*cm CT Dose Reduction Employed: Automated exposure control(AEC) and iterative recon COMPARISON: CT brain 04/07/2024. RESULT: Localizer images: No significant findings. Post-operative change: None. Acute change: No evidence of an acute infarct or other acute parenchymal process. Hemorrhage: No evidence of acute intracranial hemorrhage. Almost complete interval resolution of previously noted right convexity subdural hematoma other than minimal residual chronic subdural hematoma versus dural thickening measuring up to 3 mm along the right convexity, as seen on image 94 series 5. ECASS hemorrhagic transformation score: Not Applicable Mass Lesion / Mass Effect: There is no evidence of an intracranial mass or extraaxial fluid collection. No significant mass effect. Chronic change: Scattered patchy foci of low attenuation are present within supratentorial white matter which is a nonspecific finding but likely represents mild microvascular ischemia. Parenchyma: There is mild generalized volume loss. The brain parenchyma is otherwise within normal limits for age. Ventricles: Ventricular enlargement concordant with the degree of parenchymal volume loss. Paranasal sinuses and skull base: Atherosclerotic calcifications noted in the bilateral carotid siphons. The visualized paranasal sinuses are grossly clear. The skull base and imaged soft tissues are unremarkable. Small right parietal scalp infiltration again noted and unchanged. IMPRESSION: Almost complete interval resolution of the right convexity subdural hematoma with minimal residual as described. No significant mass effect. No new acute intracranial hemorrhage. Industrial Machine Assembler: [facility] Transcribe Date/Time: May 07 2024 11:46A Dictated by : KIRSTEN LUGO MD This examination was interpreted and the report reviewed and electronically signed by: KIRSTEN LUGO MD on May 07 2024 11:50AM EST [id number] Normal [facility] CT Head WO contraston 2023 IMPRESSION: Almost complete interval resolution of the right convexity subdural hematoma with minimal residual as described. No significant mass effect. No new acute intracranial hemorrhage. Industrial Machine Assembler: [facility] Transcribe Date/Time: May 07 2024 11:46A Dictated by : KIRSTEN LUGO MD This examination was interpreted and the report reviewed and electronically signed by: KIRSTEN LUGO MD on May 07 2024 11:50AM [facility] DIVISION OF RADIOLOGY * * *Final Report* * * DATE OF EXAM: May 07 2024 11:22AM [facility] 0504 - CT BRAIN WO IVCON / PROCEDURE REASON: Subdural hematoma (HCC) * * * * Physician Interpretation * * * * EXAMINATION: CT BRAIN WO IVCON CLINICAL HISTORY: Subdural hematoma TECHNIQUE: Serial axial images without IV contrast were obtained from the vertex to the foramen magnum. MQ: CTBWO_3 CT Radiation dose: Integrated Dose-Length Product (DLP) for this visit = 719 mGy*cm CT Dose Reduction Employed: Automated exposure control(AEC) and iterative recon COMPARISON: CT brain 04/07/2024. RESULT: Localizer images: No significant findings. Post-operative change: None. Acute change: No evidence of an acute infarct or other acute parenchymal process. Hemorrhage: No evidence of acute intracranial hemorrhage. Almost complete interval resolution of previously noted right convexity subdural hematoma other than minimal residual chronic subdural hematoma versus dural thickening measuring up to 3 mm along the right convexity, as seen on image 94 series 5. ECASS hemorrhagic transformation score: Not Applicable Mass Lesion / Mass Effect: There is no evidence of an intracranial mass or extraaxial fluid collection. No significant mass effect. Chronic change: Scattered patchy foci of low attenuation are present within supratentorial white matter which is a nonspecific finding but likely represents mild microvascular ischemia. Parenchyma: There is mild generalized volume loss. The brain parenchyma is otherwise within normal limits for age. Ventricles: Ventricular enlargement concordant with the degree of parenchymal volume loss. Paranasal sinuses and skull base: Atherosclerotic calcifications noted in the bilateral carotid siphons. The visualized paranasal sinuses are grossly clear. The skull base and imaged soft tissues are unremarkable. Small right parietal scalp infiltration again noted and unchanged. DIVISION OF RADIOLOGY Provider, [facility] - 05/07/2024 * * *Final Report* * * DATE OF EXAM: May 07 2024 11:22AM [facility] 0504 - CT BRAIN WO IVCON / PROCEDURE REASON: Subdural hematoma (HCC) * * * * Physician Interpretation * * * * EXAMINATION: CT BRAIN WO IVCON CLINICAL HISTORY: Subdural hematoma TECHNIQUE: Serial axial images without IV contrast were obtained from the vertex to the foramen magnum. MQ: CTBWO_3 CT Radiation dose: Integrated Dose-Length Product (DLP) for this visit = 719 mGy*cm CT Dose Reduction Employed: Automated exposure control(AEC) and iterative recon COMPARISON: CT brain 04/07/2024. RESULT: Localizer images: No significant findings. Post-operative change: None. Acute change: No evidence of an acute infarct or other acute parenchymal process. Hemorrhage: No evidence of acute intracranial hemorrhage. Almost complete interval resolution of previously noted right convexity subdural hematoma other than minimal residual chronic subdural hematoma versus dural thickening measuring up to 3 mm along the right convexity, as seen on image 94 series 5. ECASS hemorrhagic transformation score: Not Applicable Mass Lesion / Mass Effect: There is no evidence of an intracranial mass or extraaxial fluid collection. No significant mass effect. Chronic change: Scattered patchy foci of low attenuation are present within supratentorial white matter which is a nonspecific finding but likely represents mild microvascular ischemia. Parenchyma: There is mild generalized volume loss. The brain parenchyma is otherwise within normal limits for age. Ventricles: Ventricular enlargement concordant with the degree of parenchymal volume loss. Paranasal sinuses and skull base: Atherosclerotic calcifications noted in the bilateral carotid siphons. The visualized paranasal sinuses are grossly clear. The skull base and imaged soft tissues are unremarkable. Small right parietal scalp infiltration again noted and unchanged. IMPRESSION IMPRESSION: Almost complete interval resolution of the right convexity subdural hematoma with minimal residual as described. No significant mass effect. No new acute intracranial hemorrhage. Industrial Machine Assembler: [facility] Transcribe Date/Time: May 07 2024 11:46A Dictated by : KIRSTEN LUGO MD This examination was interpreted and the report reviewed and electronically signed by: KIRSTEN LUGO MD on May 07 2024 11:50AM EST [facility] Radiology Study observation (narrative) [place] ocasio [facility] CT Head WO contrastOrdered B y: [facility] Provider on 05-07-2024 [facility] Urgent Care Visit Reporton 0 05-01-2024 Urgent Care Visit Report [facility] [address], [address] [place] [address] OFFICE VISIT Date of Service: 05/01/24 MR#: [id number] Acct: [id number] Name: BERRY ABAD Rep #: [id number] : 1945 Provider: JOEY Schuler Age/Sex: 78/F Location: [facility] Status: Signed Intake Vital Signs 03/20/24 10:27 05/01/24 12:02 Height 5 ft 5 in 5 ft 4 in Weight: 150 lb 145 lb BMI 24.9 BP 148/78 H Blood Pressure Location Lt brachial Position Sitting Respiration 16 Pulse 71 Pulse Source Monitor Temp 97.6 F L Temp Source Temporal Pulse Oximetry (%) 97 Oxygen Delivery Method room air Intake Visit Reasons: L MIDDLE FINGER/LACERATION Chief Complaint: LT MIDDLE FINGER LACERATION Consumer Safety Inspector Required: No Accompanied by: Self Is patient in pain?: Yes Allergies bupropion HCl (From Zyban) Allergy (Severe, Verified 05/01/24 12:04) Hives bupropion (From Zyban) Allergy (Verified 05/01/24 12:04) Hives acetaminophen (From Vicodin) Adverse Reaction (Verified 05/01/24 12:04) N/V hydrocodone (From Vicodin) Adverse Reaction (Verified 05/01/24 12:04) N/V hydromorphone Adverse Reaction (Verified 05/01/24 12:04) constipation Medications ???Medication ???Instructions ???Recorded ???Confirmed ???Type oujqvrwu-tlcq-cqmu 8 mg-folic 400 1 ea PO DAILY 05/27/16 05/01/24 History mcg-K 50 mcg-lutein 300 mcg tablet omega-3 fatty acids 1,000 mg 1,000 mg PO DAILY 05/27/16 05/01/24 History capsule benzonatate 200 mg capsule 200 mg PO TID PRN cough #20 caps 03/16/18 05/01/24 Rx atorvastatin 40 mg tablet 40 mg PO QHS 06/03/20 05/01/24 History famotidine-Ca carb-mag hydrox 10 1 tab PO DAILY 06/03/20 05/01/24 History mg-800 mg-165 mg chewable tablet (Pepcid Complete) antiarthritic combination no.2 900 mg PO 06/04/20 05/01/24 History mg tablet (glucosamine-chondroi tin) levothyroxine 25 mcg tablet 50 mcg PO DAILY 06/10/21 05/01/24 History metoprolol succinate 25 mg 25 mg PO DAILY #90 tabs 03/14/24 05/01/24 Rx tablet,extended release 24 hr (Toprol XL) Have you fallen in the past year?: No PFS Medical History (Updated 05/01/24 @ 13:40 by Erick COOK, PA) Laceration of left middle finger Status post placement of implantable loop recorder Syncope and collapse Chest tightness Non-rheumatic aortic stenosis Subdural hemorrhage Hematoma of scalp Fall Syncope Right bundle branch block (RBBB) GERD (gastroesophageal reflux disease) Cancer of right breast Hyperlipidemia Arthritis Essential (primary) hypertension Surgical History History of breast reconstruction H/O section History of appendectomy History of mastectomy Family History Brother , age 49 Cancer lung Social History Smoking Status: Former smoker quit date: 09/26/04 pack-years: 40 Tobacco: How many years used: 40 how long ago did patient quit smokin years ago second hand exposure: Yes alcohol intake: current alcohol intake frequency: 0-2 drinks per day Alcohol type: wine HPI HPI Chief Complaint: LT MIDDLE FINGER LACERATION Details: BERRY ABAD, is a 78 F who presents to the office today for LMF [place] DP V shaped laceration of approximately 1.5 cm in length, states she cut with scissors in her kitchen while preparing food by accident. Event occurred immediately prior to arrival here at the clinic today. Qshjt-npow-sdsrjmen. H send C. Last Td 2021. Localized pressure has been applied since the time of the injury though persistent bleeding remains. No loss of sensation or strength or function at injury site or distal to. No other associated symptoms and no other alleviating/aggravati ng factors. ROS Const Constitutional: No other (As above) Exam Const General: cooperative, healthy appearing and no acute distress Orientation: alert and awake Resp Effort Inspection: normal respiratory effort and able to speak in complete sentences Cardio Rate: regular rate Pulses: radial pulses present Skin General: no rashes or lesions noted Trauma: laceration (LMF [place] DP V shaped laceration of 1.5 cm; see procedure) Neuro General: patient alert and patient awake Cognition: normal cognition Speech: speech normal Extrem General: normal to inspection Psych Appearance: grossly normal Mental Status: mental status grossly normal Mood: congruent mood Affect: normal affect Speech and Movement: speech and movement normal Attitude: cooperative Office Procedures Laceration Repair Procedure performed by: Erick Anderson Explained risks and benefits to parent: Yes Informed consent given: Yes Consent sign (more content not included)... Normal [facility] 04-12-2024 [facility] Office Visit ([facility]) BERRY ABAD ([id number]) 1945 F Date Time Provider Department 04/12/24 11:30 AM RADHA MOSLEY During your visit today, we recorded the following information about you: Pulse Respiration Blood pressure Weight 67/minute 16/minute 130/81 66.5 kg Height 1.651 m Radha Mosley APRN.CNP 04/12/2024 12:34 PM Signed NEUROSURGERY FOLLOW UP OFFICE NOTE Radha Mosley APRN.CNP Date of visit: April 12, 2024 Patient Name: Ms.Patricia Abad Date of : 1945 Current Age: [age] year old Sex: female MRN/E# [id number] Last Office Visit: Hospital follow-up CHIEF COMPLAINT: Patient presents with: Established Patient HPI: The patient presents for a hospital follow up with imaging (CT B) for evaluation. This is a 78-year-old female with a PMHx of HTN and breast CA who was seen for consult at [facility] on 03/09/[address] Bagley. She presented as a trauma transfer after a ground-level fall with imaging showing a right parietal SDH with no MLS. She denied any LOC but reported being amnesic to the event. No neurosurgical intervention was indicated. She was monitored in the ICU with frequent neurochecks and serial imaging. She was placed on a short course of Keppra. Once imaging stabilized no surgical intervention was ultimately warranted. Recommendation was to follow-up in [address] and to hold all blood thinning medications. Today she states she is doing well and denies any specific complaints or concerns. Following discharge from the hospital she was having episodes of numbness to the left middle finger and hand but this has resolved over the past 2 weeks. She presents for image review, evaluation and plan of care. SYMPTOMS: None PREVIOUS CONSERVATIVE TREATMENTS: Keppra -Short course PREVIOUS SURGERY: None SURGICAL RISK: Smoker: Former -quit 09/26/2001 Diabetic: No Anticoagulants / Antiplatelets: No Occupation: Retired PAIN EVALUATION No data found in the last 1 encounters. PAST MEDICAL HISTORY Diagnosis Date Essential hypertension, benign Generalized anxiety disorder Anxiety, Generalized Insomnia, unspecified Malignant neoplasm of breast (female), unspecified site 1983 Breast cancer, right breast Other and unspecified hyperlipidemia on Crestor PAST SURGICAL HISTORY Procedure Laterality Date APPENDECTOMY AGE 16 BREAST RECONSTRUCTION DELIVERY ONLY 1964, 1965, 1966 , low cervical COLONOSCOPY FLX DX W/COLLJ SPEC WHEN PFRMD 11/2004 Colonoscopy - repeat in 10 years. EXCISION GANGLION WRIST DORSAL/VOLAR PRIMARY right wrist MASTECTOMY 1988 RIGHT BREAST PAST SURGICAL HISTORY OF tumor removed buttock PAST SURGICAL HISTORY OF 11/27/08 reconstruction right breast - at [facility] - Dr. Henry Gandhi TONSILLECTOMY PRIMARY/SECONDARY FAMILY HISTORY Problem Relation Age of Onset Heart Father age 77 Heart Paternal Aunt CVA Cancer Brother LUNG (smoker) other (HYPERLIPIDEMIA [Other]) Mother Alzheimer's Disease Mother age 54 - age 77 COPD Sister ALLERGIES Allergen Reactions Hctz [Hydrochloroth* NOT ALLERGIC - but got hypokalemia enough to cause irregular heart rate (per Dr. Gamez) Red Dye Zyban [Bupropion (S* Current Outpatient Medications Medication Sig Dispense Refill atorvastatin (LIPITOR) 40 mg tablet Take 40 mg by mouth daily at bedtime. levothyroxine 25 mcg cap Take 25 mcg by mouth daily before breakfast. Benzonatate 200 mg capsule Take 200 mg by mouth as needed for cough. KRILL OIL ORAL Take 1 capsule by mouth daily at bedtime. famotidine/Ca carb/mag hydrox (PEPCID COMPLETE ORAL) Take 1 tablet by mouth at bedtime as needed (heartburn). MELATONIN ORAL Take by mouth. metoprolol succinate XL, long acting, (TOPROL XL) 50 mg ORAL 24 hr tablet Take 1 tablet by mouth once daily. 0 CENTRUM SILVER TAB Take one(1) tablet daily. 0 No current facility-administered medications for this visit. REVIEW OF SYSTEMS: Review of Systems Constitutional: Negative for chills, diaphoresis (Negative for night sweats.) and fever. HENT: Negative for ear discharge and rhinorrhea. Eyes: Negative for discharge. Respiratory: Negative for cough, shortness of breath and wheezing. Cardiovascular: Negative for chest pain, palpitations and leg swelling. Gastrointestinal: Negative for constipation, diarrhea, nausea and vomiting. Endocrine: Negative for cold intolerance and heat intolerance. Genitourinary: Negative for frequency. Negative for urinary incontinence and urinary retention. Musculoskeletal: Negative for back pain, joint swelling, myalgias and neck pain. Skin: Negative for rash (Negative for hives and skin lesions.). Allergic/Immunologic: Negative for environmental allergies and food allergies. Negative for contact allergy, seasonal allergies. Neurological: Negative for (more content not included)... Normal [facility] CT BRAIN WO IVCONon 04-09-20 CT BRAIN WO IVCON * * *Final Report* * * DATE OF EXAM: Apr 09 2024 10:19AM [facility] 0504 - CT BRAIN WO IVCON / PROCEDURE REASON: SDH (subdural hematoma) (HCC) * * * * Physician Interpretation * * * * EXAMINATION: CT BRAIN WO IVCON CLINICAL HISTORY: Subdural hematoma. TECHNIQUE: Serial axial images without IV contrast were obtained from the vertex to the foramen magnum. MQ: CTBWO_3 CT Radiation dose: Integrated Dose-Length Product (DLP) for this visit = 719 mGy*cm CT Dose Reduction Employed: Automated exposure control(AEC) and iterative recon COMPARISON: 03/11/2024 RESULT: Localizer images: None provided Post-operative change: None. Acute change: No evidence of recurrent acute intracranial process. Hemorrhage: No evidence of recurrent acute intracranial hemorrhage. ECASS hemorrhagic transformation score: Not Applicable Mass Lesion / Mass Effect: There has been interval decrease in attenuation, and extent and caliber of the small extra-axial fluid collection overlying the right cerebral convexity since the prior study suggesting partial interval resorption and evolution of the previously noted acute subdural hemorrhage. Currently, a small residual extra-axial fluid collection of CSF attenuation overlies the right frontal convexity suggesting small chronic subdural hematoma measuring approximately 5 mm in thickness. This residual fluid collection causes only mild mass effect on the underlying parenchyma and mild compression of the right lateral ventricle. Chronic change: Minimal patchy low-attenuation is noted in the supratentorial periventricular white matter which is nonspecific but likely represents minimal chronic microvascular ischemia in view of the patient's chronologic age. Parenchyma: There is no significant volume loss. The brain parenchyma is otherwise within normal limits for age. Ventricles: Residual mild compression of the right lateral ventricle. The lateral third and fourth ventricles are otherwise stable in size and configuration. Paranasal sinuses and skull base: Interval resolution of subcutaneous hemorrhage in the right parieto-occipital and left frontoparietal regions. No evidence of prior calvarial or skull base fracture. IMPRESSION: Interval evolution and reduction in size and extent of the acute subdural hemorrhage overlying the right cerebral convexity since 03/11/2024 with small residual chronic component overlying the right frontal convexity causing only mild mass effect on the underlying parenchyma as outlined above. 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 Transcribe Date/Time: Apr 09 2024 11:57A Dictated by : ANIBAL ROGEL MD This examination was interpreted and the report reviewed and electronically signed by: NAIBAL ROGEL MD on Apr 09 2024 12:04PM EST [id number] Normal [facility] CT Head WO contraston 2023 IMPRESSION: Interval evolution and reduction in size and extent of the acute subdural hemorrhage overlying the right cerebral convexity since 03/11/2024 with small residual chronic component overlying the right frontal convexity causing only mild mass effect on the underlying parenchyma as outlined above. Industrial Machine Assembler: ANGEL Transcribe Date/Time: Apr 09 2024 11:57A Dictated by : ANIBAL ROGEL MD This examination was interpreted and the report reviewed and electronically signed by: ANIBAL ROGEL MD on Apr 09 2024 12:04PM [facility] DIVISION OF RADIOLOGY * * *Final Report* * * DATE OF EXAM: Apr 09 2024 10:19AM [facility] 0504 - CT BRAIN WO IVCON / PROCEDURE REASON: SDH (subdural hematoma) (HCC) * * * * Physician Interpretation * * * * EXAMINATION: CT BRAIN WO IVCON CLINICAL HISTORY: Subdural hematoma. TECHNIQUE: Serial axial images without IV contrast were obtained from the vertex to the foramen magnum. MQ: CTBWO_3 CT Radiation dose: Integrated Dose-Length Product (DLP) for this visit = 719 mGy*cm CT Dose Reduction Employed: Automated exposure control(AEC) and iterative recon COMPARISON: 03/11/2024 RESULT: Localizer images: None provided Post-operative change: None. Acute change: No evidence of recurrent acute intracranial process. Hemorrhage: No evidence of recurrent acute intracranial hemorrhage. ECASS hemorrhagic transformation score: Not Applicable Mass Lesion / Mass Effect: There has been interval decrease in attenuation, and extent and caliber of the small extra-axial fluid collection overlying the right cerebral convexity since the prior study suggesting partial interval resorption and evolution of the previously noted acute subdural hemorrhage. Currently, a small residual extra-axial fluid collection of CSF attenuation overlies the right frontal convexity suggesting small chronic subdural hematoma measuring approximately 5 mm in thickness. This residual fluid collection causes only mild mass effect on the underlying parenchyma and mild compression of the right lateral ventricle. Chronic change: Minimal patchy low-attenuation is noted in the supratentorial periventricular white matter which is nonspecific but likely represents minimal chronic microvascular ischemia in view of the patient's chronologic age. Parenchyma: There is no significant volume loss. The brain parenchyma is otherwise within normal limits for age. Ventricles: Residual mild compression of the right lateral ventricle. The lateral third and fourth ventricles are otherwise stable in size and configuration. Paranasal sinuses and skull base: Interval resolution of subcutaneous hemorrhage in the right parieto-occipital and left frontoparietal regions. No evidence of prior calvarial or skull base fracture. DIVISION OF RADIOLOGY Provider, [facility] - 04/09/2024 * * *Final Report* * * DATE OF EXAM: Apr 09 2024 10:19AM [facility] 0504 - CT BRAIN WO IVCON / PROCEDURE REASON: SDH (subdural hematoma) (HCC) * * * * Physician Interpretation * * * * EXAMINATION: CT BRAIN WO IVCON CLINICAL HISTORY: Subdural hematoma. TECHNIQUE: Serial axial images without IV contrast were obtained from the vertex to the foramen magnum. MQ: CTBWO_3 CT Radiation dose: Integrated Dose-Length Product (DLP) for this visit = 719 mGy*cm CT Dose Reduction Employed: Automated exposure control(AEC) and iterative recon COMPARISON: 03/11/2024 RESULT: Localizer images: None provided Post-operative change: None. Acute change: No evidence of recurrent acute intracranial process. Hemorrhage: No evidence of recurrent acute intracranial hemorrhage. ECASS hemorrhagic transformation score: Not Applicable Mass Lesion / Mass Effect: There has been interval decrease in attenuation, and extent and caliber of the small extra-axial fluid collection overlying the right cerebral convexity since the prior study suggesting partial interval resorption and evolution of the previously noted acute subdural hemorrhage. Currently, a small residual extra-axial fluid collection of CSF attenuation overlies the right frontal convexity suggesting small chronic subdural hematoma measuring approximately 5 mm in thickness. This residual fluid collection causes only mild mass effect on the underlying parenchyma and mild compression of the right lateral ventricle. Chronic change: Minimal patchy low-attenuation is noted in the supratentorial periventricular white matter which is nonspecific but likely represents minimal chronic microvascular ischemia in view of the patient's chronologic age. Parenchyma: There is no significant volume loss. The brain parenchyma is otherwise within normal limits for age. Ventricles: Residual mild compression of the right lateral ventricle. The lateral third and fourth ventricles are otherwise stable in size and configuration. Paranasal sinuses and skull base: Interval resolution of subcutaneous hemorrhage in the right parieto-occipital and left frontoparietal regions. No evidence of prior calvarial or skull base fracture. IMPRESSION IMPRESSION: Interval evolution and reduction in size and extent of the acute subdural hemorrhage overlying the right cerebral convexity since 03/11/2024 with small residual chronic component overlying the right frontal convexity causing only mild mass effect on the underlying parenchyma as outlined above. Industrial Machine Assembler: ANGEL Transcribe Date/Time: Apr 09 2024 11:57A Dictated by : ANIBAL ROGEL MD This examination was interpreted and the report reviewed and electronically signed by: ANIBAL ROGEL MD on Apr 09 2024 12:04PM EST [facility] Radiology Study observation (narrative) [facility] Head WO contrastOrdered B y: [facility] Provider on 04-09-2024 [facility] Basic metabolic 2000 panelon 03-12-2024 Anion gap [Moles/Vol] 10 mmol/L Normal 8-15 [facility] Comment on above: Order Comment: Speci men Type: BLOOD SPECIMEN Ordering Facility: [facility] Address: [address] [place] [address] Performed By: #### 2 4321-2 #### [facility] CLIA [id number] [address] [place] [address] [place] Calcium [Mass/Vol] 8.7 mg/dL Normal 8.5-10.2 [facility] Comment on above: Order Comment: Speci men Type: BLOOD SPECIMEN Ordering Facility: [facility] Address: [address] [place] [address] Performed By: #### 2 4321-2 #### [facility] CLIA [id number] [address] [place] [address] [place] Chloride [Moles/Vol] 105 mmol/L Normal 98-107 [facility] Comment on above: Order Comment: Speci men Type: BLOOD SPECIMEN Ordering Facility: [facility] Address: [address] [place] [address] Performed By: #### 2 4321-2 #### [facility] CLIA [id number] [address] [place] [address] [place] CO2 [Moles/Vol] 25 mmol/L Normal 22-30 [facility] Comment on above: Order Comment: Speci men Type: BLOOD SPECIMEN Ordering Facility: [facility] Address: [address] [place] [address] Performed By: #### 2 4321-2 #### [facility] CLIA [id number] [address] STATES OF [facility] Creatinine [Mass/Vol] 0.85 mg/dL Normal 0.58-0.96 [facility] Comment on above: Order Comment: Bob pitt Type: BLOOD SPECIMEN Ordering Facility: [facility] Address: [address] [place] [address] Performed By: #### 2 4321-2 #### [facility] CLIA [id number] [address] Creatinine and Glomerular filtration rate.predicted panel (S/P/Bld) 70 mL/min/1.73m??? Normal >=60 [facility] Comment on above: Order Comment: Bob pitt Type: BLOOD SPECIMEN Ordering Facility: [facility] Address: [address] [place] [address] Result Comment: Nelia mated Glomerular Filtration Rate (eGFR) is calculated using the 2020 CKD-EPI creatinine equation. This equation utilizes serum creatinine, sex, and age as parameters. The creatinine assay has traceable calibration to isotope dilution-mass spectrometry. Refer to KDIGO guidelines for clinical interpretation. In patients with unstable renal function, e.g. those with acute kidney injury, the eGFR may not accurately reflect actual GFR. Performed By: #### 2 4321-2 #### [facility] CLIA [id number] [address] OF [facility] Glucose [Mass/Vol] 136 mg/dL High 74-99 [facility] Comment on above: Order Comment: Bob pitt Type: BLOOD SPECIMEN Ordering Facility: [facility] Address: [address] [place] [address] Result Comment: The [place] Diabetes Association (ADA) provides guidance for cutoff values for fasting glucose and random glucose. The ADA defines fasting as no caloric intake for at least 8 hours. Fasting plasma glucose results between 100 to 125 mg/dL indicate increased risk for diabetes (prediabetes). Fasting plasma glucose results greater than or equal to 126 mg/dL meet the criteria for diagnosis of diabetes. In the absence of unequivocal hyperglycemia, results should be confirmed by repeat testing. In a patient with classic symptoms of hyperglycemia or hyperglycemic crisis, random plasma glucose results greater than or equal to 200 mg/dL meet the criteria for diagnosis of diabetes. Reference: Standards of Medical Care in Diabetes 2016, [place] Diabetes Association. Diabetes Care. 2016.39(Suppl 1). Performed By: #### 2 4321-2 #### [facility] CLIA [id number] [address] Potassium [Moles/Vol] 4.1 mmol/L Normal 3.7-5.1 [facility] Comment on above: Order Comment: Nadinei men Type: BLOOD SPECIMEN Ordering Facility: [facility] Address: [address] [place] [address] Performed By: #### 2 4321-2 #### [facility] CLIA [id number] [address] Sodium [Moles/Vol] 140 mmol/L Normal 136-144 [facility] Comment on above: Order Comment: Bob pitt Type: BLOOD SPECIMEN Ordering Facility: [facility] Address: [address] [place] [address] Performed By: #### 2 4321-2 #### [facility] CLIA [id number] [address] Urea nitrogen [Mass/Vol] 10 mg/dL Normal 7-21 [facility] Comment on above: Order Comment: Nadinei men Type: BLOOD SPECIMEN Ordering Facility: [facility] Address: [address] [place] [address] Performed By: #### 2 4321-2 #### [facility] CLIA [id number] [address] OF [facility] CASE MANAGEMon 03-12-2024 CASE MANAGEM HNO ID: [id number] Author: ANNE TAYLOR LSW Service: ? Author Type: Bus Person Type: Care Mgt Progress Note Filed: 03/12/2024 12:25 Note Text: CARE MANAGEMENT PROGRESS NOTE SERVICE DATE: 03/12/2024 SERVICE TIME: 12:25 PM LOS: 2 days IMM Follow Up Copy Given: Yes Copy given to:: Patient Method: In Person Verbal confirmation SIGNATURE: NAINA Pagan PATIENT NAME: Berry Abad DATE: March 12, 2024 TIME: 12:25 PM PAGER/CONTACT #: [phone] [facility] CASE MGT INIT Sharifa 2023 CASE MGT INIT YUKO HNO ID: [id number] Author: ANNE TAYLOR LSW Service: ? Author Type: Bus Person Type: Care Mgt Initial Assessment Filed: 03/12/2024 12:25 Note Text: CARE MANAGEMENT: ASSESSMENT AND DISCHARGE PLAN SERVICE DATE: March 12, 2024 SERVICE TIME: 12:16 PM PCP: Aria Sanchez MD Primary Contact: Extended Emergency Contact Information Primary Emergency Contact: DAVIAN ABAD Address: [address] [place] [address] Relation: Spouse Admission Status: Inpatient Insurance Provider: MEDICARE A AND B Discharge Planning requested by: Per Department Practice Potential Transition Plans Home Advance Directives Current Advance Directive: Health Care Power of Hydro Station Supervisor In Chart: No Current Living Arrangements and Support Lives with: Spouse/significant other Type of Residence: Private Residence (House) Support: Family members, Spouse/significant other How do you manage to accomplish the following: Independent: Ambulation;Bathe/Show er;Dress;Meals/Meal Prep;Going to the bathroom;Medication Management;Transporta tion to appointments/communit y Current Services/Equipment Current Post-Acute Service(s): None Discharge Planning Patient Goal(s): Be able to go home, General wellness, Less pain [place] of Choice Explained: [place] of Choice Given: No Reason Not Given: No placements necessary Are you interested in bedside delivery of your medications? No Discharge Planning Participant(s): Patient Patient/Family Comments: Caregiver Assessment: Caregiver is ready, willing and able to meet the patient's needs as recommended by the inter-professional team: No Caregiver needed Transport at Discharge: Transportation Arrangements: Car Date of Trip: 03/12/24 Destination: Home Needs Prior to Discharge: Needs Prior to Discharge: None;Ready for Discharge Post-Acute Discharge Plan: Reviewed chart and met with the Pt at bedside. Pt is from home with spouse. She is independent at baseline. She does not use any DME and drives. Pt denies any involvement with any supports or services. +PCP, +RX, -DME PT/OT eval completed and Pt is home self care. She is at or near her baseline. Pt is in agreement that she is ready for dc. She is anticipated to dc home self care today. There are no dc concerns. Spouse to transport home. Trauma assessment completed (see below). Pt denies any psychosocial concerns. She denies any ETOH hx or current issues. She drinks 1-2 glasses of wine with dinner. She states she can go without but enjoys this with her dinner. Declined any need or desire for resources. TRAUMA ASSESSMENT- ALCOHOL USE HISTORY: 1. Consumption Screening Female 4 or more drinks in one session:No More than 1 drink per day:No More than 7 drinks per week:No 2. Have you ever felt you should cut down on your drinking? No 3. Have people annoyed you by criticizing your drinking? No 4. Have you ever felt bad or guilty about drinking? No 5. 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 No 6. CAGE Screening? Yes 7. If patient has a positive screen CAGE or Consumption, what is their total number of drinks per day? 1-2 glasses of wine with dinner most nights 8. Date of last alcohol use: 03/09/2024 ALCOHOL/DRUG HISTORY: Alcohol Has drinking/drug use affected your work performance? Not Applicable Has drinking/drug use caused you to miss work? Not Applicable Has drinking/drug use affected your relationships? No Has drinking/drug use affected your health? No Has drinking/drug use had legal consequences? No Do you have a history of substance abuse treatment? No MENTAL HEALTH HISTORY: Do you have a history of mental health issues? No Have you ever had any behavioral problems/anger management issues? No PSYCHOSOCIAL ASSESSMENT: Current living situation: lives with spouse Social supports: spouse and family Do you have a family history of alcohol/drug use? No Do you have a family history of mental health issues? No Significant childhood events (trauma, abuse, neglect)? No Current or past history of abuse/neglect? No Cultural beliefs related to alcohol/drug use? No Self care issues? No Difficulty communicating with others? No Financial difficulties? No Currently employed? No Student? No Past or present ? No PLAN/RECOMMENDATIONS: Patient Education: Blood alcohol level and/or toxicology screen upon admission Recommended/Reviewed Abstinence for the following: Motivation to seek treatment at this time: Low Barriers to seeking treatment: No barriers identified Treatment Referral: none Other Referrals: none Pt will dc home self care today. There are no transitional care needs at this time. Spouse to transport home. SIGNATURE: NAINA Pagan PATIENT NAME: Berry Aabd DATE: March 12, 2024 TIME: 12:16 PM CONTACT #: [phone] Normal [facility] CBC panel Auto (Bld)on 03-12 Erythrocyte distribution width (RBC) [Ratio] 12.9 % Normal 11.5-15.0 [facility] Comment on above: Order Comment: Speci yoandy Type: BLOOD SPECIMEN Ordering Facility: [facility] Address: [address] [place] [address] Performed By: #### 2 4321-2 #### [facility] CLIA [id number] [address] [place] [address] [place] [facility] Hematocrit (Bld) [Volume fraction] 36.3 % Normal 36.0-46.0 [facility] Comment on above: Order Comment: Bob pitt Type: BLOOD SPECIMEN Ordering Facility: [facility] Address: [address] [place] [address] Performed By: #### 2 4321-2 #### [facility] CLIA [id number] [address] [place] Hemoglobin (Bld) [Mass/Vol] 11.4 g/dL Low 11.5-15.5 [facility] Comment on above: Order Comment: Speci men Type: BLOOD SPECIMEN Ordering Facility: [facility] Address: [address] [place] [address] Performed By: #### 2 4321-2 #### [facility] CLIA [id number] [address] [place] MCH (RBC) [Entitic mass] 32.9 pg Normal 26.0-34.0 [facility] Comment on above: Order Comment: Speci men Type: BLOOD SPECIMEN Ordering Facility: [facility] Address: [address] [place] [address] Performed By: #### 2 4321-2 #### [facility] CLIA [id number] [address] MCHC (RBC) [Mass/Vol] 31.4 g/dL Normal 30.5-36.0 [facility] Comment on above: Order Comment: Speci men Type: BLOOD SPECIMEN Ordering Facility: [facility] Address: [address] [place] [address] Performed By: #### 2 4321-2 #### [facility] CLIA [id number] [address] MCV (RBC) [Entitic vol] 104.9 fL High 80.0-100.0 [facility] Comment on above: Order Comment: Speci men Type: BLOOD SPECIMEN Ordering Facility: [facility] Address: [address] [place] [address] Performed By: #### 2 4321-2 #### [facility] CLIA [id number] [address] Nucleated RBC (Bld) [#/Vol] 10*3/uL Normal <0.01 [facility] Comment on above: Order Comment: Speci men Type: BLOOD SPECIMEN Ordering Facility: [facility] Address: [address] [place] [address] Performed By: #### 2 4321-2 #### [facility] CLIA [id number] [address] Platelet mean volume (Bld) [Entitic vol] 9.6 fL Normal 9.0-12.7 [facility] Comment on above: Order Comment: Speci men Type: BLOOD SPECIMEN Ordering Facility: [facility] Address: [address] [place] [address] Performed By: #### 2 4321-2 #### [facility] CLIA [id number] [address] [place] Platelets (Bld) [#/Vol] 188 10*3/uL Normal 150-400 [facility] Comment on above: Order Comment: Speceric men Type: BLOOD SPECIMEN Ordering Facility: [facility] Address: [address] [place] [address] Performed By: #### 2 4321-2 #### [facility] CLIA [id number] [address] OF [facility] RBC (Bld) [#/Vol] 3.46 10*6/uL Low 3.90-5.20 [facility] Comment on above: Order Comment: Speci men Type: BLOOD SPECIMEN Ordering Facility: [facility] Address: [address] [place] [address] Performed By: #### 2 4321-2 #### [facility] CLIA [id number] [address] WBC (Bld) [#/Vol] 7.37 10*3/uL Normal 3.70-11.00 [facility] Comment on above: Order Comment: Nadinei men Type: BLOOD SPECIMEN Ordering Facility: [facility] Address: [address] [place] [address] Performed By: #### 2 4321-2 #### [facility] CLIA [id number] [address] CNDSon 03-12-2024 CNDS HNO ID: [id number] Author: CORINNE MENDOZA MD Service: General Surgery Author Type: Nurse Practitioner Type: Discharge Summary Filed: 03/12/2024 19:16 Note Text: Attestation signed by Corinne Mendoza MD at 03/12/2024 7:16 PM Attending Note I discussed with resident. The patient was not examined by the attending. I reviewed the resident's note. I agree with the resident's assessment and plan unless otherwise noted. Signature: Corinne Mendoza MD Date: 03/12/2024. Time: 7:16 PM DISCHARGE SUMMARY PATIENT NAME: Berry Abad Code Status: Full Code Highest Readmission Risk Score: 10 The 30 day readmissions risk score is derived from an internally validated risk model which evaluates patient level characteristics, utilization history, medication orders and lab results up until the day of discharge. Patients with a score of 40 or above are considered highest risk for readmission. Specific patient level drivers will be listed at the bottom of the summary. Admission Information Admission Information ADMIT DATE: 03/09/2024 DISCHARGE DATE: 03/12/2024 MY DOCTORS AND MEDICAL TEAM: My Main Hospital Doctor: John Bailey MD Primary Care Provider: Aria Sanchez MD My Medical Team Members: Treatment Team: Attending Provider: John Bailey MD MY CONDITION AT DISCHARGE: Stable REASON I WAS IN THE HOSPITAL: Evaluation and treatment of injuries sustained following a fall SUMMARY OF WHAT HAPPENED WHILE I WAS IN THE HOSPITAL: Berry Abad is a 78-year old female who presented to [place] ED following a ground level fall on 03/09/24. Patient reported felling dizzy and lightheaded before the incident. +Head strike, +loss of consciousness. Imaging obtained and showed: 1. Right parietal subdural hematoma 3 mm in thickness with minimal localized mass effect 2. Right parietal superficial scalp hematoma 3. Left frontotemporal small scalp laceration and hematoma Given the above findings, patient was transferred to [facility] for further trauma evaluation and admitted to the SICU for close neurologic monitoring. Neurosurgery was consulted. Repeat CT brain showed increased size of the right cerebral convexity SDH, measuring approximately [address] was obtained and showed stable appearance of brain. Neurosurgery recommended prophylactic Keppra x 7 days (end date: 03/16) and to hold Aspirin. Incidentally, patient with +UA for WBCs and leuks. Patient was initiated on empiric Ceftriaxone. UC showed E. Coli that was sensitive to Ceftriaxone. Patient received a 3-day course of antibiotics for acute uncomplicated cystitis. PT/OT evaluated patient and recommended home with self-care. On 03/12, patient was evaluated by trauma surgery and deemed medically stable to discharge home. Patient is to follow-up with neurosurgery in 1 month with repeat imaging. She is also to follow-up with the TBI clinic. OTHER PROBLEMS/DIAGNOSIS: Principal Problem: Subdural hematoma (HCC) Active Problems: Fall Acute cystitis without hematuria Resolved Problems: * No resolved hospital problems. * OPERATIONS PERFORMED WHILE IN THE HOSPITAL: None IMPORTANT TEST/PROCEDURES: No procedures performed TEST RESULTS NOT AVAILABLE AT THIS TIME: No pending results Discharge Disposition Discharge Disposition: Home With Self Care Activity When You Leave the Hospital May bathe and shower No prolonged bedrest, longer than 8 hours in a 24 hour period Diet Instructions Avoid Alcohol Drink 6 to 8 glasses of fluids per day Resume your pre-hospital diet For Pain When You Leave the Hospital Use acetaminophen (Tylenol) as recommended on the bottle Call Your Doctor If There is an unusual odor from the wound area You have a severe headache You have difficulty urinating or pain when urinating You have lightheadedness, fainting, or confusion You have pain and swelling in your legs, especially if it is only on one side and not the other You have pain with urination, cloudy urine or foul smelling urine You have persistent nausea/vomiting over 24 hours You have persistent or heavy bleeding You have redness, swelling, pus or drainage from the wound You have swollen glands or cold and clammy skin Your temperature is greater than 101F Follow Up Appointments Follow-Up Appointment Please obtain repeat CT brain prior to outpatient visit When: In 4 weeks Patient/Parents to call for appointment?: Scheduled Radha Mosley APRN.COLLEGE TUTOR [phone] [facility] [address] PCP Requested Referral Follow-Up Appointment When: In 2 weeks Patient/Parents to call for appointment?: Yes Aria Sanchez MD [phone] [facility] [address] [facility] [address] PCP Req (more content not included)... Normal [facility] 03-12-2024 CNPN Telephone (NTBIBA) BERRY ABAD ([id number]) 1945 F Date Time Provider Department 03/12/24 LINDY GRAYSON During your visit today, we recorded the following information about you: Anibal Marin 03/12/2024 2:53 PM Signed Called patient, left detailed message regarding possibly scheduling an eval with our tbi clinic. Awaiting callback. Anibal Marin 03/13/2024 11:06 AM Signed Patient called back. She declined to schedule with TBI. Allergies As of Date: 03/12/2024 Noted Allergy Reaction SHELLFISH 10/03/2007 4 - Hives Comments: Has had some shellfish with out any reaction. HCTZ (HYDROCHLOROTHIAZIDE) 11/07/2008 Comments: NOT ALLERGIC - but got hypokalemia enough to cause irregular heart rate (per Dr. Gamez) RED DYE 05/25/2005 ZYBAN (BUPROPION (SMOKING DETER)) 05/25/2005 Date Reviewed: 03/10/2024 Reviewed by: Martha Harmon, RN - Fully Assessed Reason for Visit: Appointment [186] Prescriptions as of 03/13/2024 - acetaminophen (TYLENOL) 325 mg tablet Take 3 tablets by mouth four times daily. - levETIRAcetam (KEPPRA) 500 mg tablet Take 1 tablet by mouth two times a day for 8 doses. - atorvastatin (LIPITOR) 40 mg tablet Take 40 mg by mouth daily at bedtime. - levothyroxine 25 mcg cap Take 25 mcg by mouth daily before breakfast. - Benzonatate 200 mg capsule Take 200 mg by mouth as needed for cough. - KRILL OIL ORAL Take 1 capsule by mouth daily at bedtime. - famotidine/Ca carb/mag hydrox (PEPCID COMPLETE ORAL) Take 1 tablet by mouth at bedtime as needed (heartburn). - cartilage/collagen II/hyaluron (MOVE FREE ULTRA ORAL) Take 1 capsule by mouth once daily. - MELATONIN ORAL Take by mouth. - rosuvastatin (CRESTOR) 20 mg ORAL tablet Take 1 tablet by mouth once daily. - metoprolol succinate XL, long acting, (TOPROL XL) 50 mg ORAL 24 hr tablet Take 1 tablet by mouth once daily. - estradiol (ESTRACE) 0.01 % (0.1 mg/g) VAGINAL vaginal cream Use 1 g vaginally. at bedtime 1-3times weekly - calcium carbonate/vitamin d3(CALCIUM 600 + D(3) 600 MG (1,500)-200 UNIT TAB) Take one(1) tablet twice daily. - vitamin b complex(B COMPLEX 1 TAB) Take one(1) tablet daily. - CENTRUM SILVER TAB Take one(1) tablet daily. 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 06/10/2009 OTHER HAMMER TOE [M20.40] 09/10/2008 Essential Hypertension, Benign [I10] Routine general medical examination at [facility]*06/10/2009 06/19/2012 Class: Chronic Routine gynecological examination [Z01.419] 06/10/2009 06/19/2012 Class: Chronic Insomnia [G47.00] 06/10/2009 Impaired Fasting Glucose [R73.01] 06/10/2009 Breathing Sounds, Abnormal [R06.9] 06/14/2009 Subdural hematoma (HCC) [S06.5XAA] 03/09/2024 Fall [W19.XXXA] 03/11/2024 Acute cystitis without hematuria [N30.00] 03/11/2024 Encounter Status:Closed by ANIBAL MARIN on 03/12/24 Normal [facility] THERAPY NTon 03-12-2024 THERAPY NT HNO ID: [id number] Author: JOHN BRUNER, SHANNON Service: Physical Therapy Author Type: Physical Therapist Type: Therapy (PT/OT/Speech/Resp) Filed: 03/12/2024 11:55 Note Text: Physical Therapy Evaluation Summary SERVICE DATE: 03/12/2024 SERVICE TIME: 1102 to 1117 ROOM: [id number] PT 6 Clicks Score: 22 DISCHARGE RECOMMENDATIONS Home Recommended Discharge Disposition Comments: No ongoing PT needs. Recommend home ASSESSMENT Response to Therapy Interventions: Good Participation in Activities Patient mobilizing safely. No impairments that require ongoing PT. PRECAUTIONS Fall Risk CURRENT HOSPITAL COURSE 78 y/o female presented to hospital on 03/09/2024 post fall at home. Transfer from [place] with R parietal subdural hematoma, R parietal superficial scalp hematoma, L frontotemporal laceration and hematoma. Pt with UTI and +ETOH. Relevant Past Medical History: HTN HOME LIVING Patient Lives With: Spouse Assistance Available: Part-Time Entry To Home: Stairs Number Of Stairs Into Home: 3 Number Of Stairs To Bed/Bath: 0 Tub/Shower Type: walk in shower Laundry: on main floor Equipment Owned: (none) PRIOR FUNCTIONAL LEVEL Within Functional Limits Pt reports that she was independent with functional mobility without use of device. Reports independence with ADls and IADls SUBJECTIVE willing to participate THERAPY DIAGNOSIS General symptoms and signs-other TREATMENT INTERVENTIONS Evaluation Skilled Treatment Time (minutes): 15 $ Evaluation-Low (84127) Billed Units: 1 unit TRAINING AND EDUCATION PROVIDED Benefits of In-Hospital Mobility THERAPEUTIC SKILLS USED Assessment of Tolerance Including Vitals Response to Activity, Cuing Verbal, Movement Facilitation FUNCTIONAL STATUS Bed Mobility Rolling: Independent Supine To Sit: Independent Sit to Supine: Independent Scooting: Independent Transfers Sit To Stand: Contact Guard Assistance Stand To Sit: Contact Guard Assistance Bed to Chair Gait Contact Guard Assistance Gait Device: None Gait Distance (feet): 400' Stairs Contact Guard Assistance Stairs Device: Rail Number of Stairs: 4 Range of Motion: WFL Strength: WFL PLAN PT Frequency: Discontinue Therapy Services Reasons Therapy Services Discontinued: No skilled needs, Independent in all functional mobility SIGNATURE: John Bruner PT PATIENT NAME: Berry Abad DATE: March 12, 2024 TIME: 11:55 AM Normal [facility] THERAPY NT HNO ID: [id number] Author: FARIHA SANTIAGO OTR/L Service: Occupational Therapy Author Type: Occupational Therapist Type: Therapy (PT/OT/Speech/Resp) Filed: 03/12/2024 11:59 Note Text: Occupational Therapy Evaluation Summary SERVICE DATE: 03/12/2024 SERVICE TIME: 1000 to 1033 ROOM: [id number] OT 6 Clicks Score: 19 DISCHARGE RECOMMENDATIONS Home Recommended Discharge Disposition Comments: Pt on track to reach OT goals by dc. Recommnending home with assist from family as needed. Anticipated Discharge Needs: Physical Assist at Home Physical Assist at Home for: Cleaning, Meals, Laundry, Transportation, Shopping Recommended Discharge Equipment: Shower Chair ASSESSMENT Response to Therapy Interventions: Good Participation in Activities, Low Activity Tolerance Ms. Abad was seen today for an occupational therapy evaluation. Pt AxOx3 throughout. Slightly impulsive with mild safety impairments. Provided handout and education on brain breaks. Appropriate for home going with assist from family as needed with IADls. PRECAUTIONS Fall Risk CURRENT HOSPITAL COURSE 78 y/o female presented to hospital on 03/09/2024 post fall at home. Transfer from [place] with R parietal subdural hematoma, R parietal superficial scalp hematoma, L frontotemporal laceration and hematoma. Pt with UTI and +ETOH. Relevant Past Medical History: HTN HOME LIVING Patient Lives With: Spouse Assistance Available: Part-Time Entry To Home: Stairs Number Of Stairs Into Home: 3 Number Of Stairs To Bed/Bath: 0 Tub/Shower Type: walk in shower Laundry: on main floor Equipment Owned: (none) PRIOR FUNCTIONAL LEVEL Within Functional Limits Pt reports that she was independent with functional mobility without use of device. Reports independence with ADls and IADls Baseline Cognition: Oriented to self, Oriented to place, Oriented to time, Oriented to situation SUBJECTIVE Pt pleasant and agreeable to OT evaluation COGNITION Orientation Deficits: (Axox3) Responsiveness: Awake, Alert Follows Commands: 2-step Commands, Cueing Needed Cueing to Follow Commands: Minimum Executive Function Deficits: Safety Awareness Clock Draw Test: 2-Normal (03/12/24) Word Recall: 2-recalled words (03/12/24) Mini Cog Score: 4 (03/12/24) Facilitated completion of the Mini-Cog during session. The Mini-Cog is a quick screening for early dementia detection. The assessment is made up of two portions including a 3-item word recall and a clock drawing portion. Scoring is based on the 3-word recall (3 points) and the accuracy of clock drawing (2 points). A total score of 3, 4, or 5 indicates lower likelihood of dementia but does not rule out some degree of cognitive impairment. Patient scored a 4/5 at this date. Following screening, occupational therapist reviewed assessment with patient. THERAPY DIAGNOSIS Reduced mobility-other, Decreased activities of daily living (ADL), Muscle Weakness (generalized), Unsteadiness on feet, General symptoms and signs-other, Signs and Symptoms Involving Cognitive Functions and Awareness TREATMENT INTERVENTIONS Evaluation, Self Nursing Home Management (05130) Timed Code Treatment (minutes): 18 Skilled Treatment Time (minutes): 33 $ Evaluation - Moderate (64300) Billed Units: 1 unit Self Nursing Home Management (08138) Treatment Minutes: 18 $ Self Nursing Home Management (04539) Billed Units: 1 unit TRAINING AND EDUCATION PROVIDED Activity Adaptation/Compensato ry Strategies, Assistive Device Use, Bed Mobility, Command Following, Energy Conservation, Functional Mobility Involving ADLs, Grooming Tasks, Insight into Deficits, Life Roles/Routines/Habits , Lower Extremity Dressing, Role of Occupational Therapy, Sitting Balance to Improve [place] with ADLs/Self-Care, Standing Balance to Improve [place] with ADLs/Self-Care, Transfer - Sit to Stand, Toileting , Upper Extremity Dressing, Upper Extremity Bathing THERAPEUTIC SKILLS USED Activity Dosing, Assessment of Tolerance Including Vitals Response to Activity, Cues for Sequencing/Proper Technique for Activity, Cuing Tactile, Cuing Verbal, Physical Assist, Therapeutic Use of Self FUNCTIONAL STATUS Activities of Daily Living Assist Level Additional Information Feeding Set Up Grooming Contact Guard Assistance Facilitated hair washing at sink side. Completed in sitting with head over sink due to slight dizziness. Education provided to pt on energy conservation and brain breaks to maximize ease and safety with ADLs. Extended time needed with ADLs. Bathing Upper Body Minimal Assistance Bathing Lower Body Minimal Assistance Dressing Upper Body Contact Guard Assistance Dressing Lower Body Minimal Assistance Facilitated education to pt on lower body dressing techniques to maximize ease, independence, and safety with ADL. Provided demonstration on figure-4 lower body dressing technique to maximize ease with dressing and prev (more content not included)... Normal [facility] ALLIED HEALTHon 03-11-2024 ALLIED HEALTH HNO ID: [id number] Author: LIEN RAMIRES RT(R) Service: Radiology Author Type: Technologist Type: Allied Health Filed: 03/11/2024 07:28 Note Text: Radiology Service Progress Note PATIENT NAME: Berry Abad DATE OF SERVICE: March 11, 2024 TIME: 7:28 AM PATIENT IDENTITY VERIFICATION COMPLETED USING TWO (2) IDENTIFIERS: Name and Date of confirmed by patient verbally and Name and Date of confirmed by identification band. FALL SCREENING: Has the patient had 2 falls in the last year or 1 fall with injury or currently using an Ambulatory Assistive Device (Walker, Cane, Wheelchair, Crutches, etc.)? Inpatient: Screened on floor PATIENT GENDER DATA: Female. status: : No status: NO. PATIENT RELEVANT IMPLANT DATA REVIEWED: Not Applicable PATIENT PRESENTS WITH AN IMPLANTABLE OR ATTACHED MEDICAL STAFF DIRECTOR: No RADIOLOGY DEPARTMENT: CT; Exam(s) Completed: Brain PERIPHERAL IV DATA: Not applicable SIGNED BY: RT Kaelyn(R) March 11, 2024 7:28 AM Normal [facility] Basic metabolic 2000 panelon 03-11-2024 Anion gap [Moles/Vol] 9 mmol/L Normal 8-15 [facility] Comment on above: Order Comment: Bob pitt Type: BLOOD SPECIMEN Ordering Facility: [facility] Address: [address] [place] [address] Performed By: #### 2 4321-2 #### [facility] CLIA [id number] 1 [place] [address] [place] Calcium [Mass/Vol] 8.7 mg/dL Normal 8.5-10.2 [facility] Comment on above: Order Comment: Bob pitt Type: BLOOD SPECIMEN Ordering Facility: [facility] Address: [address] [place] [address] Performed By: #### 2 4321-2 #### [facility] CLIA [id number] 1 [place] [address] [place] Chloride [Moles/Vol] 106 mmol/L Normal 98-107 [facility] Comment on above: Order Comment: Bob pitt Type: BLOOD SPECIMEN Ordering Facility: [facility] Address: [facility] [place] [address] Performed By: #### 2 4321-2 #### [facility] CLIA [id number] [address] [place] CO2 [Moles/Vol] 25 mmol/L Normal 22-30 [facility] Comment on above: Order Comment: Speci men Type: BLOOD SPECIMEN Ordering Facility: [facility] Address: [address] [place] [address] Performed By: #### 2 4321-2 #### [facility] CLIA [id number] [address] [place] Creatinine [Mass/Vol] 0.98 mg/dL High 0.58-0.96 [facility] Comment on above: Order Comment: Speci men Type: BLOOD SPECIMEN Ordering Facility: [facility] Address: [address] [place] [address] Performed By: #### 2 4321-2 #### [facility] CLIA [id number] [address] Creatinine and Glomerular filtration rate.predicted panel (S/P/Bld) 59 mL/min/1.73m??? Low >=60 [facility] Comment on above: Order Comment: Speci men Type: BLOOD SPECIMEN Ordering Facility: [facility] Address: [address] [place] [address] Result Comment: Nelia mated Glomerular Filtration Rate (eGFR) is calculated using the 2020 CKD-EPI creatinine equation. This equation utilizes serum creatinine, sex, and age as parameters. The creatinine assay has traceable calibration to isotope dilution-mass spectrometry. Refer to KDIGO guidelines for clinical interpretation. In patients with unstable renal function, e.g. those with acute kidney injury, the eGFR may not accurately reflect actual GFR. Performed By: #### 2 4321-2 #### [facility] CLIA [id number] [address] [place] Glucose [Mass/Vol] 116 mg/dL High 74-99 [facility] Comment on above: Order Comment: Speci men Type: BLOOD SPECIMEN Ordering Facility: [facility] Address: [address] [place] [address] Result Comment: The [place] Diabetes Association (ADA) provides guidance for cutoff values for fasting glucose and random glucose. The ADA defines fasting as no caloric intake for at least 8 hours. Fasting plasma glucose results between 100 to 125 mg/dL indicate increased risk for diabetes (prediabetes). Fasting plasma glucose results greater than or equal to 126 mg/dL meet the criteria for diagnosis of diabetes. In the absence of unequivocal hyperglycemia, results should be confirmed by repeat testing. In a patient with classic symptoms of hyperglycemia or hyperglycemic crisis, random plasma glucose results greater than or equal to 200 mg/dL meet the criteria for diagnosis of diabetes. Reference: Standards of Medical Care in Diabetes 2016, [place] [employer] Association. Diabetes Care. 2016.39(Suppl 1). Performed By: #### 2 4321-2 #### [facility] CLIA [id number] [address] [place] Potassium [Moles/Vol] 3.9 mmol/L Normal 3.7-5.1 [facility] Comment on above: Order Comment: Bob pitt Type: BLOOD SPECIMEN Ordering Facility: [facility] Address: [address] [place] [address] Performed By: #### 2 4321-2 #### [facility] CLIA [id number] [address] [place] [facility] Sodium [Moles/Vol] 140 mmol/L Normal 136-144 [facility] Comment on above: Order Comment: Bob pitt Type: BLOOD SPECIMEN Ordering Facility: [facility] Address: [address] [place] [address] Performed By: #### 2 4321-2 #### [facility] CLIA [id number] [address] [place] [facility] Urea nitrogen [Mass/Vol] 11 mg/dL Normal 7-21 [facility] Comment on above: Order Comment: Bob pitt Type: BLOOD SPECIMEN Ordering Facility: [facility] Address: [address] [place] [address] Performed By: #### 2 4321-2 #### [facility] CLIA [id number] [address] [place] CBC panel Auto (Bld)on 03-11 Erythrocyte distribution width (RBC) [Ratio] 12.7 % Normal 11.5-15.0 [facility] Comment on above: Order Comment: Speci men Type: BLOOD SPECIMEN Ordering Facility: [facility] Address: [address] [place] [address] Performed By: #### 2 4321-2 #### [facility] CLIA [id number] [address] OF [facility] Hematocrit (Bld) [Volume fraction] 36.1 % Normal 36.0-46.0 [facility] Comment on above: Order Comment: Speci men Type: BLOOD SPECIMEN Ordering Facility: [facility] Address: [address] [place] [address] Performed By: #### 2 4321-2 #### [facility] CLIA [id number] [address] OF [facility] Hemoglobin (Bld) [Mass/Vol] 11.8 g/dL Normal 11.5-15.5 [facility] Comment on above: Order Comment: Speci men Type: BLOOD SPECIMEN Ordering Facility: [facility] Address: [address] [place] [address] Performed By: #### 2 4321-2 #### [facility] CLIA [id number] [address] OF [facility] MCH (RBC) [Entitic mass] 33.8 pg Normal 26.0-34.0 [facility] Comment on above: Order Comment: Speci men Type: BLOOD SPECIMEN Ordering Facility: [facility] Address: [address] [place] [address] Performed By: #### 2 4321-2 #### [facility] CLIA [id number] [address] [place] MCHC (RBC) [Mass/Vol] 32.7 g/dL Normal 30.5-36.0 [facility] Comment on above: Order Comment: Speci men Type: BLOOD SPECIMEN Ordering Facility: [facility] Address: [address] [place] [address] Performed By: #### 2 4321-2 #### [facility] CLIA [id number] [address] OF [place] MCV (RBC) [Entitic vol] 103.4 fL High 80.0-100.0 [facility] Comment on above: Order Comment: Speci men Type: BLOOD SPECIMEN Ordering Facility: [facility] Address: [address] [place] [address] Performed By: #### 2 4321-2 #### [facility] CLIA [id number] [address] Nucleated RBC (Bld) [#/Vol] 10*3/uL Normal <0.01 [facility] Comment on above: Order Comment: Speci men Type: BLOOD SPECIMEN Ordering Facility: [facility] Address: [address] [place] [address] Performed By: #### 2 4321-2 #### [facility] CLIA [id number] [address] Platelet mean volume (Bld) [Entitic vol] 9.4 fL Normal 9.0-12.7 [facility] Comment on above: Order Comment: Speci men Type: BLOOD SPECIMEN Ordering Facility: [facility] Address: [address] [place] [address] Performed By: #### 2 4321-2 #### [facility] CLIA [id number] [address] Platelets (Bld) [#/Vol] 170 10*3/uL Normal 150-400 [facility] Comment on above: Order Comment: Speci men Type: BLOOD SPECIMEN Ordering Facility: [facility] Address: [address] [place] [address] Performed By: #### 2 4321-2 #### [facility] CLIA [id number] [address] RBC (Bld) [#/Vol] 3.49 10*6/uL Low 3.90-5.20 [facility] Comment on above: Order Comment: Speci men Type: BLOOD SPECIMEN Ordering Facility: [facility] Address: [facility] [place] [address] Performed By: #### 2 4321-2 #### [facility] CLIA [id number] [address] OF [facility] WBC (Bld) [#/Vol] 6.03 10*3/uL Normal 3.70-11.00 [facility] Comment on above: Order Comment: Speci men Type: BLOOD SPECIMEN Ordering Facility: [facility] Address: [address] [place] [id number] Performed By: #### 2 4321-2 #### [facility] CLIA [id number] [address] BRAIN WO IVCONon 03-11-[address] BRAIN WO IVCON * * *Final Report* * * DATE OF EXAM: Mar 11 2024 7:27AM [facility] 0504 - CT BRAIN WO IVCON / PROCEDURE REASON: Subdural hematoma * * * * Physician Interpretation * * * * EXAMINATION: CT BRAIN WO IVCON HISTORY: Subdural hematoma TECHNIQUE: CT head without contrast. M: [id number]_3 CT Dose-Length Product (DLP): 757 mGy*cm CT Dose Reduction Employed: Iterative recon COMPARISON: CT brain 03/10/2024 RESULT: No significant change in right cerebral convexity hyperdense subdural hematoma measuring 11-12 mm maximal thickness. Underlying right cerebral mass effect without significant midline shift. Stable remaining brain without new acute findings. Unchanged scalp hematomas in the right parietal and left frontotemporal regions. IMPRESSION: Similar right cerebral convexity subdural hematoma. Associated mass effect without midline shift. No new acute findings. 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 Transcribe Date/Time: Mar 11 2024 7:31A Dictated by : ABELINO CHAN MD This examination was interpreted and the report reviewed and electronically signed by: ABELINO CHAN MD on Mar 11 2024 7:38AM EST [id number] Normal [facility] NURSING PROGon 03-11-2024 NURSING PROG HNO ID: [id number] Author: MERRY SUTHERLAND RN Service: Nursing Author Type: Registered Nurse Type: Nursing Progress Note Filed: 03/11/2024 09:56 Note Text: This RN spot checked Pt's O2 and Pt was sitting at 86-87% on RA. Pt denied SOB and is comfortably resting. This RN placed Pt on 2L and Pt quickly recovered to 93%. Care plan continues. Normal [facility] THERAPY NTon 03-11-2024 THERAPY NT HNO ID: [id number] Author: MABEL BARR CCC-MELTER HELPER Service: Speech/Swallow Author Type: Speech Language Pathologist Type: Therapy (PT/OT/Speech/Resp) Filed: 03/11/2024 15:18 Note Text: Speech Therapy Speech Evaluation SERVICE DATE: 03/11/2024 SERVICE TIME: 1440 to 1500 ROOM: [place] [address] IMPRESSION: Functional communication without limitations in: Speech, Language, Cognition Recommended Discharge Disposition: Home Current Hospital Course: 03/09 CT brain with increased size of right cerebral convexity subdural hematoma measuring .9cm. Rehabilitation Precautions: Cognitive Linguistics Deficits Reason for Speech Therapy Consult: ground level fall, hit back of head Relevant Past Medical History: HTN Response to Therapy Interventions: Good Participation in activities Subjective: The patient is awake, talking in full sentences and able to participate. Current Status Oral Hygiene: Clear, moist oral cavity Dentition: Retains Natural Dentition Current Feeding Method: Oral Current Diet Textures: Thin Liquids IDDSI Level 0 Current Level Of Communication: Verbal Oral Motor Exam: Within Functional Limits Cognition Cognitive Status: Within Functional Limits For Current Session The Cognitive Log (Cog-Log) is designed to be a quick quantitative measure of cognition status for use at the bedside with rehabilitation inpatients. It is intended for individuals who have achieved consistent accurate orientation, such as measured by the Orientation Log (O-Log). The Cog-Log can be used to document cognitive progress on a daily basis. All items are scored from 0 to 3 for a total possible score of 30. 3 = correct spontaneous response 2 = correct upon logical cueing (e.g., That was yesterday, so today must be...) 1 = correct upon multiple choice or phonemic cueing 0 = incorrect despite cueing, inappropriate response, or unable to respond Stimulus Response/Score Date 3 Time 11/26 Name of Hospital 11/26 Repeat Address 11/26 20-1 11/26 Months Reversed 11/26 30 Seconds 11/26 [facility] 11/26 Go/No-Go 11/26 Address Recall 11/26 Total Speech/Voice/Language Speech Production: Within Functional Limits Expressive and Receptive Language: Auditory Comprehension Deficits: 1-Step Commands - (%): 100 2-Step Commands - (%): 100 Personal Yes/No Questions - (%): 100 Picture Identification - (%): 100 Simple Yes/No Questions - (%): 100 Verbal Expression Deficits: Answers ?wh? questions - (%): 100 Automatic Speech - (%): 100 Confrontational Naming - (%): 100 Conversational Speech - (%): 100 Expressing Basic Needs/Wants - (%): 100 Reading Comprehension Deficits: Sentence (%): 100 No further Speech Therapy indicated at this time Patient will be discontinued from speech therapy when no further skilled needs are identified in this setting. PLAN: ST Frequency: Discontinue Therapy Services Reasons Inpatient Therapy Services Discontinued: No skilled needs Plan of Care Developed with: Patient, Nurse TREATMENT INTERVENTIONS: Therapy Diagnosis: No Skilled Need Interventions Provided: Speech Language Eval (97290) $ Speech Language Eval (56757) Billed Units: 1 unit Training and Education Provided in: Cognitive Linguistic Strategies, Expressive Language Skills The following therapeutic skills were used:: Education on role of discipline / importance of activity, Verbal cuing, Instruction in self-monitoring / self-assessment Skilled Treatment Time (minutes): 20 Home Environment Prior Functional Level: Within Functional Limits Patient Lives With: Spouse Prior Swallowing Function/Diet Textures: Regular Consistency, Thin Liquids IDDSI Level 0 Please see discipline specific clinical documentation flowsheet for complete details for this therapy evaluation/treatment. SIGNATURE: Mabel Barr CCC-MELTER HELPER PATIENT NAME: Berry Abad DATE: March 11, 2024 TIME: 3:09 PM Normal [facility] 25(OH)D3 [facility] 2023 25-hydroxyvitamin D3 [Mass/Vol] 43.9 ng/mL Normal >=30.0 [facility] Comment on above: Order Comment: Speci men Type: BLOOD SPECIMENOrdering Facility: [facility] Address: [address] [place] [address] Result Comment: Clas sification of 25 [place] Vitamin D status: Deficiency: <= 20.0 ng/ml. Insufficiency: 21.0-29.0 ng/ml. Sufficiency: >= 30.0 ng/ml. Performed By: #### 1 989-3 ####[facility] [id number] [place] [address] [place] ALLIED HEALTHon 03-10-2024 ALLIED HEALTH HNO ID: [id number] Author: EMMY SAM RT(R) Service: Radiology Author Type: Technologist Type: Allied Health Filed: 03/10/2024 00:06 Note Text: Radiology Service Progress Note PATIENT NAME: Berry Abad DATE OF SERVICE: March 10, 2024 TIME: 12:05 AM PATIENT IDENTITY VERIFICATION COMPLETED USING TWO (2) IDENTIFIERS: Name and Date of confirmed by patient verbally and Name and Date of confirmed by identification band. FALL SCREENING: Has the patient had 2 falls in the last year or 1 fall with injury or currently using an Ambulatory Assistive Device (Walker, Cane, Wheelchair, Crutches, etc.)? Emergency Room Patient: Screened in ED PATIENT GENDER DATA: Female. status: : No status: NO. PATIENT RELEVANT IMPLANT DATA REVIEWED: Not Applicable PATIENT PRESENTS WITH AN IMPLANTABLE OR ATTACHED MEDICAL STAFF DIRECTOR: No RADIOLOGY DEPARTMENT: CT; Exam(s) Completed: Brain PERIPHERAL IV DATA: Not applicable SIGNED BY: RT Eva(R) March 10, 2024 12:05 AM Normal [facility] Basic metabolic 2000 panelon 03-10-2024 Anion gap [Moles/Vol] 10 mmol/L Normal 8-15 [facility] Comment on above: Order Comment: Speci men Type: BLOOD SPECIMENOrdering Facility: [facility] Address: [address] [place] [address] Performed By: #### 2 4321-2, 16242-6, 2777-1 ####[facility] [id number] [address] [place] Calcium [Mass/Vol] 8.5 mg/dL Normal 8.5-10.2 [facility] Comment on above: Order Comment: Speci men Type: BLOOD SPECIMENOrdering Facility: [facility] Address: [address] [place] [id number] Performed By: #### 2 4321-2, , 2776-09 ####[facility] [id number] [place] [address] [place] Chloride [Moles/Vol] 106 mmol/L Normal 98-107 [facility] Comment on above: Order Comment: Speci men Type: BLOOD SPECIMENOrdering Facility: [facility] Address: [address] [place] [address] Performed By: #### 2 4321-2, , 2776-09 ####[facility] [id number] [place] [id number] [place] CO2 [Moles/Vol] 24 mmol/L Normal 22-30 [facility] Comment on above: Order Comment: Speci men Type: BLOOD SPECIMENOrdering Facility: [facility] Address: [address] [place] [address] Performed By: #### 2 4321-2, , 2776-09 ####[facility] [id number] [place] [address] [place] Creatinine [Mass/Vol] 0.91 mg/dL Normal 0.58-0.96 [facility] Comment on above: Order Comment: Speci men Type: BLOOD SPECIMENOrdering Facility: [facility] Address: [address] [place] [address] Performed By: #### 2 4321-2, , 2776-09 ####[facility] [id number] [address] Creatinine and Glomerular filtration rate.predicted panel (S/P/Bld) 65 mL/min/1.73m??? Normal >=60 [facility] Comment on above: Order Comment: Speci men Type: BLOOD SPECIMENOrdering Facility: [facility] Address: [address] [place] [address] Result Comment: Nelia mated Glomerular Filtration Rate (eGFR) is calculated using the 2020 CKD-EPI creatinine equation. This equation utilizes serum creatinine, sex, and age as parameters. The creatinine assay has traceable calibration to isotope dilution-mass spectrometry. Refer to KDIGO guidelines for clinical interpretation. In patients with unstable renal function, e.g. those with acute kidney injury, the eGFR may not accurately reflect actual GFR. Performed By: #### 2 4321-2, , 2776-09 ####[facility]ORY[facility]IA [id number] [place] [address] [place] Glucose [Mass/Vol] 113 mg/dL High 74-99 [facility] Comment on above: Order Comment: Bob pitt Type: BLOOD SPECIMENOrdering Facility: [facility] Address: [address] [place] [address] Result Comment: The [place] Diabetes Association (ADA) provides guidance for cutoff values for fasting glucose and random glucose. The ADA defines fasting as no caloric intake for at least 8 hours. Fasting plasma glucose results between 100 to 125 mg/dL indicate increased risk for diabetes (prediabetes). Fasting plasma glucose results greater than or equal to 126 mg/dL meet the criteria for diagnosis of diabetes. In the absence of unequivocal hyperglycemia, results should be confirmed by repeat testing. In a patient with classic symptoms of hyperglycemia or hyperglycemic crisis, random plasma glucose results greater than or equal to 200 mg/dL meet the criteria for diagnosis of diabetes. Reference: Standards of Medical Care in Diabetes 2016, [place] Diabetes Association. Diabetes Care. 2016.39(Suppl 1). Performed By: #### 2 4321-2, , 2776-09 ####[facility]ORY[facility] [id number] [place] [address] [place] Potassium [Moles/Vol] 4.4 mmol/L Normal 3.7-5.1 [facility] Comment on above: Order Comment: Bob pitt Type: BLOOD SPECIMENOrdering Facility: [facility] Address: [address] [place] [address] Performed By: #### 2 4321-2, , 2776-09 ####[facility]ORYCLIA [id number] [place] [address] [place] Sodium [Moles/Vol] 140 mmol/L Normal 136-144 [facility] Comment on above: Order Comment: Speci men Type: BLOOD SPECIMENOrdering Facility: [facility] Address: [address] [place] [address] Performed By: #### 2 4321-2, , 2776-09 ####[facility]ORYCLIA [id number] [address] STATES OF [facility] Urea nitrogen [Mass/Vol] 12 mg/dL Normal 7-21 [facility] Comment on above: Order Comment: Speci men Type: BLOOD SPECIMENOrdering Facility: [facility] Address: [address] [place] [address] Performed By: #### 2 4321-2, , 2776-09 ####[facility]ORYCLIA [id number] [address] STATES OF [facility] CBC panel Auto (Bld)on 03-10 Erythrocyte distribution width (RBC) [Ratio] 12.9 % Normal 11.5-15.0 [facility] Comment on above: Order Comment: Speci men Type: BLOOD SPECIMEN Order[facility] Facility: [facility] Address: [address] [place] [address] Performed By: #### 2 4321-2 #### [facility] CLIA [id number] [address] STATES OF [facility] Hematocrit (Bld) [Volume fraction] 38.4 % Normal 36.0-46.0 [facility] Comment on above: Order Comment: Speci men Type: BLOOD SPECIMEN [facility]: [facility] Address: [address] [place] [address] Performed By: #### 2 4321-2 #### [facility] CLIA [id number] [address] STATES OF [facility] Hemoglobin (Bld) [Mass/Vol] 12.6 g/dL Normal 11.5-15.5 [facility] Comment on above: Order Comment: Speci men Type: BLOOD SPECIMEN [facility]: [facility] Address: [address] [place] [address] Performed By: #### 2 4321-2 #### [facility] CLIA [id number] [address] MCH (RBC) [Entitic mass] 33.2 pg Normal 26.0-34.0 [facility] Comment on above: Order Comment: Speci men Type: BLOOD SPECIMEN [facility] Address: [address] [place] [address] Performed By: #### 2 4321-2 #### [facility] CLIA [id number] [address] MCHC (RBC) [Mass/Vol] 32.8 g/dL Normal 30.5-36.0 [facility] Comment on above: Order Comment: Speci men Type: BLOOD SPECIMEN [facility]: [facility] Address: [address] [place] [address] Performed By: #### 2 4321-2 #### [facility] CLIA [id number] [address] MCV (RBC) [Entitic vol] 101.1 fL High 80.0-100.0 [facility] Comment on above: Order Comment: Speci men Type: BLOOD SPECIMEN [facility] Facility: [facility] Address: [address] [place] [address] Performed By: #### 2 4321-2 #### [facility] CLIA [id number] [address] Nucleated RBC (Bld) [#/Vol] 10*3/uL Normal <0.01 [facility] Comment on above: Order Comment: Speci men Type: BLOOD SPECIMEN [facility] Address: [address] [place] [address] Performed By: #### 2 4321-2 #### [facility] CLIA [id number] [address] [place] Platelet mean volume (Bld) [Entitic vol] 9.3 fL Normal 9.0-12.7 [facility] Comment on above: Order Comment: Speci men Type: BLOOD SPECIMEN [facility] Address: [address] [place] [address] Performed By: #### 2 4321-2 #### [facility] CLIA [id number] [address] Platelets (Bld) [#/Vol] 198 10*3/uL Normal 150-400 [facility] Comment on above: Order Comment: Speci men Type: BLOOD SPECIMEN [facility] Address: [address] [place] [address] Performed By: #### 2 4321-2 #### [facility] CLIA [id number] [address] RBC (Bld) [#/Vol] 3.80 10*6/uL Low 3.90-5.20 [facility] Comment on above: Order Comment: Speci men Type: BLOOD SPECIMEN [facility] Address: [address] [place] [address] Performed By: #### 2 4321-2 #### [facility] CLIA [id number] [address] WBC (Bld) [#/Vol] 6.56 10*3/uL Normal 3.70-11.00 [facility] Comment on above: Order Comment: Speci men Type: BLOOD SPECIMEN [facility] Address: [address] [place] [address] Performed By: #### 2 4321-2 #### [facility] CLIA [id number] [address] CONSULTon 03-10-2024 CONSULT HNO ID: [id number] Author: JOHN BAILEY MD Service: General Surgery Author Type: Resident Type: Consults Filed: 03/10/2024 10:47 Note Text: Attestation signed by John Bailey MD at 03/10/2024 10:47 AM (Updated) SURGICAL CRITICAL CARE STAFF: John Bailey MD I saw and evaluated this patient on March 10, 2024 . I have conducted an independent examination and verified the physical exam findings of the resident and or medical student as documented. Any corrections or additional notes were made as needed. I personally reviewed the laboratory results, and supervised subsequent laboratory order sets, and personally interpreted radiographic images. This was an aggregate 30 minute CRITICAL CARE encounter requiring my full attention to the evaluation and management of this critically ill patient. This time does NOT include that spent performing or supervising any procedures or teaching. DAILY ICU CHECKLIST: The following items were reviewed and are addressed in the plan of care above: *Need for Restraints. *Need for Zacarias Catheter. *Need for Central Access Devices. *Daily Sedation Holiday. *VTE Prophylaxis. *Plan of Care discussed with Patient/Family *Reviewed and or revised goals of care on rounds with patient and or patient retention representative. This included discussion relating to any of the following: code status, desire for life-sustaining treatments, palliative care, or any changes to medical proxy. John Bailey MD Departments of General Surgery Section of Trauma, Surgery Critical Care, and Acute Care Surgery Pager: [phone] March 10, 2024 Surgical Intensive Care Unit Consult Note SERVICE DATE: 03/10/2024 SERVICE TIME: 1:23 AM REASON FOR CONSULT: Subdural hematoma REQUESTING PHYSICIAN: Trauma team Subjective 78 year old female with past medical history of hypertension presented as a trauma transfer from [facility] following a ground-level fall. Patient states that her and her were watching TV this afternoon when she went to stand out of her chair and the next thing she remembers is being in an ambulance. Per her , as patient stood up she fell backwards striking her head. No postictal state. Patient has never had anything like this happen in the past. Denies any nausea vomiting or vision changes prior to the episode, no new bowel or bladder incontinence, history of seizures migraines or intracranial pathology. Patient is not on any blood thinners. At [place], patient underwent a CT scan of her head that was remarkable for a right parietal subdural hematoma measuring 3 mm with no midline shift as well as a right parietal superficial scalp hematoma and left frontal temporal small scalp abrasion. Patient also underwent a CT scan of her neck as well as chest and pelvics x-rays: All were negative for any traumatic pathology. She was seen by neurosurgery and a repeat CT head was done at midnight on 03/10. Compared to her prior CT, there appeared to be an increased size of the right cerebral convexity that now measured 0.9 cm still without midline shift. Due to the work for subdural hemorrhage, both trauma and SICU were consulted for management. FUNCTIONAL STATUS: Independent PAST MEDICAL HISTORY Diagnosis Date Essential hypertension, benign Generalized anxiety disorder Anxiety, Generalized Insomnia, unspecified Malignant neoplasm of breast (female), unspecified site 1983 Breast cancer, right breast Other and unspecified hyperlipidemia on Crestor PAST SURGICAL HISTORY Procedure Laterality Date APPENDECTOMY AGE 16 BREAST RECONSTRUCTION DELIVERY ONLY 1964, 1965, 1966 , low cervical COLONOSCOPY FLX DX W/COLLJ SPEC WHEN PFRMD 11/2004 Colonoscopy - repeat in 10 years. EXCISION GANGLION WRIST DORSAL/VOLAR PRIMARY right wrist MASTECTOMY 1988 RIGHT BREAST PAST SURGICAL HISTORY OF tumor removed buttock PAST SURGICAL HISTORY OF 11/27/08 reconstruction right breast - at [facility] - Dr. Henry Gandhi TONSILLECTOMY PRIMARY/SECONDARY FAMILY HISTORY Problem Relation Age of Onset Heart Father age 77 Heart Paternal Aunt CVA Cancer Brother LUNG (smoker) other (HYPERLIPIDEMIA [Other]) Mother Alzheimer's Disease Mother age 54 - age 77 COPD Sister Social History Tobacco Use Smoking status: Former Packs/day: 0.50 Years: 40.00 Additional pack years: 0.00 Total pack years: 20.00 Types: Cigarettes Quit date: 09/26/2001 Years since quittin.4 Smokeless tobacco: Never Substance Use Topics Alcohol use: Yes Comment: Occasionally Drug use: No (Not in a hospital admission) Current Facility-Administered Medications Medication Dose Route Frequency NaCl 0.9% iv flush bag 20 mL INTR (more content not included)... Normal [facility] CT BRAIN WO IVCONon 03-10-[address] BRAIN WO IVCON * * *Final Report* * * DATE OF EXAM: Mar 10 2024 6:04AM [facility] 0504 - CT BRAIN WO IVCON / PROCEDURE REASON: Subdural hematoma * * * * Physician Interpretation * * * * EXAMINATION: CT BRAIN WO IVCON CLINICAL HISTORY: Follow-up hemorrhage TECHNIQUE: Serial axial images without IV contrast were obtained from the vertex to the foramen magnum. MQ: CTBWO_3 CT Radiation dose: Integrated Dose-Length Product (DLP) for this visit = 833 mGy*cm CT Dose Reduction Employed: Iterative recon COMPARISON: 03/10/2024 RESULT: Localizer images: Post-operative change: None. Acute change: No evidence of an acute infarct or other acute parenchymal process. Hemorrhage: Unchanged size, appearance, and maximum transverse measurement of right convexity subdural hemorrhage again measuring approximately 1.2 cm on image 24 series 2 and 7 mm on image 14 series 2. Associated mass effect again with negligible midline shift is unchanged. Otherwise, no new hemorrhage that was not present on comparison Mass Lesion / Mass Effect: As discussed Chronic change: Unchanged Parenchyma: Similar appearance of generalized volume loss. The brain parenchyma is otherwise within normal limits for age. Ventricles: Ventricular enlargement concordant with the degree of parenchymal volume loss. Paranasal sinuses and skull base: The visualized paranasal sinuses are grossly clear. The skull base and imaged soft tissues are unremarkable. Extracranial scalp hemorrhage is also overall similar in appearance to comparison IMPRESSION: Unchanged size, appearance, and maximum transverse measurement of right convexity subdural hemorrhage with no new hemorrhage that was not present on comparison exam. Associated mass effect and negligible midline shift is also unchanged. 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 Transcribe Date/Time: Mar 10 2024 6:09A Dictated by : BRIGID WHITTEN MD This examination was interpreted and the report reviewed and electronically signed by: BRIGID WHITTEN MD on Mar 10 2024 6:14AM EST [id number] N Normal [facility] CT BRAIN WO IVCON * * *Final Report* * * DATE OF EXAM: Mar 10 2024 12:07AM [facility] 0504 - CT BRAIN WO IVCON / PROCEDURE REASON: Subdural hematoma * * * * Physician Interpretation * * * * EXAMINATION: CT BRAIN WO IVCON CLINICAL HISTORY: Subdural hematoma TECHNIQUE: Serial axial images without IV contrast were obtained from the vertex to the foramen magnum. MQ: CTBWO_3 CT Radiation dose: Integrated Dose-Length Product (DLP) for this visit = 811 mGy*cm CT Dose Reduction Employed: Iterative recon COMPARISON: 03/09/[address] RESULT: Localizer images: Unremarkable Post-operative change: None. Acute change: No evidence of an acute infarct or other acute parenchymal process. Hemorrhage: Interval increased thickness of the right cerebral convexity subdural hematoma, largest component measuring approximately 0.9 cm in maximal thickness, previously 2 mm. Slight increased sulcal effacement. Minimal effacement of the right lateral ventricle. No midline shift. Chronic change: None apparent. Parenchyma: There is no significant volume loss. The brain parenchyma is otherwise within normal limits for age. Ventricles: The ventricles are within normal limits of size and configuration for age. Paranasal sinuses and skull base: Increased size of the right temporal occipital and parietal scalp hematomas. No calvarial abnormality. IMPRESSION: When compared to the prior head CT, increased size of the right cerebral convexity subdural hematoma, now measuring approximately 0.9 cm in maximal thickness near the vertex. There is minimal effacement of underlying sulci and minimal effacement of the right lateral ventricle. No midline shift. The right scalp hematoma is similarly increased in size. URGENT RESULTS Acuity: Urgent Communication: Communicated with Dr Barber on 03/10/2024 12:49 AM via verbal communication. --END OF FINDING-- Industrial Machine Assembler: ANGEL Transcribe Date/Time: Mar 10 2024 12:44A Dictated by : HO CHONG MD This examination was interpreted and the report reviewed and electronically signed by: HO CHONG MD on Mar 10 2024 12:51AM EST [id number] N Normal [facility] Calcium.ionized [Moles/Vol]o n 03-10-2024 Calcium.ionized (BldV) [Mass/Vol] 1.12 mmol/L Normal 1.08-1.30 [facility] Comment on above: Order Comment: Speci men Type: BLOOD SPECIMEN Ordering Facility: [facility] Address: [address] [facility], [place] [address] Performed By: #### 2 4321-2 #### [facility] CLIA [id number] [address] Calcium.ionized adjusted to pH 7.4 (Bld) [Moles/Vol] 1.09 mmol/L Normal 1.08-1.30 [facility] Comment on above: Order Comment: Speci men Type: BLOOD SPECIMEN Ordering Facility: [facility] Address: [address] [place] [address] Performed By: #### 2 4321-2 #### [facility] CLIA [id number] [address] ED NOTEon 03-10-2024 ED NOTE HNO ID: [id number] Author: JOVANA MENDEZ RN Service: ? Author Type: Registered Nurse Type: ED Notes Filed: 03/10/2024 17:09 Note Text: Report called to RN. [facility] ED NOTE HNO ID: [id number] Author: JOVANA MENDEZ RN Service: ? Author Type: Registered Nurse Type: ED Notes Filed: 03/10/2024 17:09 Note Text: [facility] ED NOTE HNO ID: [id number] Author: RUFINA MARTINEZ Tech Service: Abstract Author Type: Senior Director Type: ED Notes Filed: 03/10/2024 16:30 Note Text: Pt assisted off the bedpan. Fresh linens applied to the bed. Call-light within reach. [facility] ED NOTE HNO ID: [id number] Author: RUFINA MARTINEZ Tech Service: Abstract Author Type: Senior Director Type: ED Notes Filed: 03/10/2024 16:13 Note Text: Pt assisted on bedpan. Pt states she will use the call-light when finished. [facility] ED NOTE HNO ID: [id number] Author: JOVANA MENDEZ RN Service: ? Author Type: Registered Nurse Type: ED Notes Filed: 03/10/2024 16:00 Note Text: Attempt x1, no answer from RN after 3 minutes on hold. [facility] ED NOTE HNO ID: [id number] Author: JOVANA MENDEZ, RN Service: ? Author Type: Registered Nurse Type: ED Notes Filed: 03/10/2024 12:15 Note Text: Pt able to swallow sips of water. Pt sat up and given pill cup, asked if she was sitting up enough pt replied yes. Pt took all 3 tylenol pills at once and only able to swallow one pill and coughed up the rest. Pt no longer coughing and states she does not feel anything is stuck in her throat. Dr. Spence at bedside and notified. [facility] ED NOTE HNO ID: [id number] Author: ZOILA MCKENNA RN Service: Emergency Medicine Author Type: Registered Nurse Type: ED Notes Filed: 03/10/2024 09:18 Note Text: Neuro surgery Longenecker at bedside at this time. Pt BP 95/36 (55). Discussed with neuro that this RN will be holding the metoprolol. [facility] ED NOTE HNO ID: [id number] Author: ZOILA MCKENNA RN Service: Emergency Medicine Author Type: Registered Nurse Type: ED Notes Filed: 03/10/2024 09:12 Note Text: Dr. Caputo messaged at this time concerning order for metoprolol, pt BP 106/46 (63). Awaiting response at this time. [facility] ED NOTE HNO ID: [id number] Author: ZOILA MCKENNA RN Service: Emergency Medicine Author Type: Registered Nurse Type: ED Notes Filed: 03/10/2024 07:27 Note Text: Dr. Caputo responded at this time that MAP of 66 is acceptable. This RN will continue to monitor pt. [facility] ED NOTE HNO ID: [id number] Author: ZOILA MCKENNA RN Service: Emergency Medicine Author Type: Registered Nurse Type: ED Notes Filed: 03/10/2024 07:15 Note Text: Dr. Caputo messaged at this time concerning pt drop in BP. Awaiting response at this time. [facility] ED NOTE HNO ID: [id number] Author: AUDELIA HEBERT RN Service: Emergency Medicine Author Type: Registered Nurse Type: ED Notes Filed: 03/10/2024 06:32 Note Text: Neuro surg notified about pt nausea that is new this morning. No new orders at this time. Normal [facility] ED NOTE HNO ID: [id number] Author: AUDELIA HEBERT RN Service: Emergency Medicine Author Type: Registered Nurse Type: ED Notes Filed: 03/10/2024 06:19 Note Text: On return to room pt crying stating she feels like she can not urinate and it hurts. Bladder scan 200cc. Pt vomited on CT table as well. No other neuro deficits noted. NICU paged Normal [facility] ED NOTE HNO ID: [id number] Author: AUDELIA HEBERT RN Service: Emergency Medicine Author Type: Registered Nurse Type: ED Notes Filed: 03/10/2024 02:32 Note Text: Per ICU pt okay to drink sips of water with pills Normal [facility] HISTORY PHYSICALon HISTORY PHYSICAL HNO ID: [id number] Author: RIKI SPENCE MD Service: General Surgery Author Type: Resident Type: H&P Filed: 03/28/2024 17:27 Note Text: Attestation signed by Riki Spence MD at 03/28/2024 5:27 PM Trauma Attending Note I have personally seen and evaluated this patient and participated in the epstein components of this encounter. I discussed the management of this case with the surgery resident team and independently confirmed the findings and plan of care as documented either attached or in their separate note from today. Any corrections or additional notes are made as needed. I evaluated the patient on March 10, 2024 and 1030 am. Assessment and Plan: Berry Abad is a 78 year old female evaluated following a Level 3 activation for ground level fall The patient was evaluated according to ATLS protocols. Injuries and diagnoses are notable for: GLF SDH Admit to ICU, SICU consult, Neurosurgery consult, Keppra, interval CT head, serial exams. Syncope evaluation- EKG, troponin, possible ECHO and/or carotid eval. Will need PT/OT evaluation. Resume statin HTN- metoprolol Hypothyroidism, continue synthroid. Riki Spence MD Delayed entry TRAUMA SURGERY HANDP [facility] ARRIVAL DATE: 03/09/2024 ARRIVAL TIME: Evening CATEGORY: Level 3 consult INJURY DATE: 03/09/2024 INJURY TIME: Afternoon Subjective 78 year old female with past medical history of hypertension presented as a trauma transfer from [facility] following a ground-level fall. Patient states that her and her were watching TV this afternoon when she went to stand out of her chair and the next thing she remembers is being in an ambulance. Per her , as patient stood up she fell backwards striking her head. No postictal state. Patient has never had anything like this happen in the past. Denies any nausea vomiting or vision changes prior to the episode, no new bowel or bladder incontinence, history of seizures migraines or intracranial pathology. Patient is not on any blood thinners. At [place], patient underwent a CT scan of her head that was remarkable for a right parietal subdural hematoma measuring 3 mm with no midline shift as well as a right parietal superficial scalp hematoma and left frontal temporal small scalp abrasion. Patient also underwent a CT scan of her neck as well as chest and pelvics x-rays: All were negative for any traumatic pathology. She was seen by neurosurgery and a repeat CT head was done at midnight on 03/10. Compared to her prior CT, there appeared to be an increased size of the right cerebral convexity that now measured 0.9 cm still without midline shift. Due to the work for subdural hemorrhage, both trauma and SICU were consulted for management HPI/CHIEF COMPLAINT: Ground-level fall BRIEF DESCRIPTION OF INJURIES: Right-sided subdural hematoma, bilateral small superficial scalp hematomas, left scalp abrasion LAST FLUIDS/MEAL: N/A CODE STATUS: Not discussed ALLERGIES Allergen Reactions Shellfish Hives Has had some shellfish with out any reaction. Hctz [Hydrochloroth* NOT ALLERGIC - but got hypokalemia enough to cause irregular heart rate (per Dr. Gamez) Red Dye Zyban [Bupropion (S* (Not in a hospital admission) DATE OF LAST TETANUS: N/A Immunization History Administered Date(s) Administered COVID-19 original vaccine, full dose, monovalent (MODERNA) 11/19/2020 12/17/2020 08/02/2021 12/28/2021 COVID-19 vaccine, age 12+ yr, 2022- season (MODERNA) 09/07/2023 COVID-19 vaccine, age 12+ yr, bivalent (MODERNA) 06/16/2022 TD Adult 06/30/2007 influenza vaccine, unspecified formulation 07/27/2007 PAST MEDICAL HISTORY Diagnosis Date Essential hypertension, benign Generalized anxiety disorder Anxiety, Generalized Insomnia, unspecified Malignant neoplasm of breast (female), unspecified site 1983 Breast cancer, right breast Other and unspecified hyperlipidemia on Crestor PAST SURGICAL HISTORY Procedure Laterality Date APPENDECTOMY AGE 16 BREAST RECONSTRUCTION DELIVERY ONLY 1964, 1965, 1966 , low cervical COLONOSCOPY FLX DX W/COLLJ SPEC WHEN PFRMD 11/2004 Colonoscopy - repeat in 10 years. EXCISION GANGLION WRIST DORSAL/VOLAR PRIMARY right wrist MASTECTOMY 1988 RIGHT BREAST PAST SURGICAL HISTORY OF tumor removed buttock PAST SURGICAL HISTORY OF 11/27/08 reconstruction right breast - at [facility] - Dr. Henry Gandhi TONSILLECTOMY PRIMARY/SECONDARY Social History Tobacco Use Smoking status: Former Packs/day: 0.50 Years: 40.00 Additional pack years: 0.00 Total pack years: 20.00 Types: Cigarettes Quit date: 09/26/2001 Years since quittin.4 Smokeless tobacco: Never Substance Use Topics Alcohol use: Yes (more content not included)... Normal [facility] Magnesium SerPl-mCncon 03-10 Magnesium [Mass/Vol] 2.1 mg/dL Normal 1.7-2.3 [facility] Comment on above: Order Comment: Speci men Type: BLOOD SPECIMENOrdering Facility: [facility] Address: [address] [place] [address] Performed By: #### 2 4321-1, 25784-9, 2776-09 ####[facility] [id number] [place] [address] [place] Phosphate SerPl-mCncon 03-10 Phosphate [Mass/Vol] 3.4 mg/dL Normal 2.7-4.8 [facility] Comment on above: Order Comment: Speci men Type: BLOOD SPECIMENOrdering Facility: [facility] Address: [address] [place] [address] Performed By: #### 2 4321-2, 23152-3, 27703-26 ####[facility] [id number] [address] OF [place] STAPHYLOCOCCUS AUREUS AND MR SA SCREEN, PCR, NASALon 03-10-2024 S. aureus and MRSA panel KARLI+probe (Nose) Not detected Normal Not Detected [facility] Comment on above: Order Comment: Speci men Type: SWABOrdering Facility: [facility] Address: [address] [place] [address] Performed By: #### S APCR ####[facility] [id number] [address] [place] TOXICOLOGY SCREEN, ROUTINE U RINEon 03-10-2024 Amphetamines Confirm (U) [Mass/Vol] Negative Normal Negative [facility] Comment on above: Order Comment: Speci men Type: URINE SPECIMENOrdering Facility: [facility] Address: [address] [place] [address] Result Comment: Cuto ff threshold at 1000 ng/mL. Performed By: #### U TOX2 ####[facility] [id number] [address] [place] BARBITURATES, URINE Negative Normal Negative [facility] Comment on above: Order Comment: Speci men Type: URINE SPECIMENOrdering Facility: [facility] Address: [address] [place] [address] Result Comment: Cuto ff threshold at 200 ng/mL. Performed By: #### U TOX2 ####[facility] [id number] [place] [address] [place] BENZODIAZEPINES, UR Negative Normal Negative [facility] Comment on above: Order Comment: Speci men Type: URINE SPECIMENOrdering Facility: [facility] Address: [address] [place] [address] Result Comment: Cuto ff threshold at 200 ng/mL. Performed By: #### U TOX2 ####[facility]IA [id number] [address] [place] Cannabinoids Screen Ql (U) Negative Normal Negative [facility] Comment on above: Order Comment: Speci men Type: URINE SPECIMENOrdering Facility: [facility] Address: [address] [place] [address] Result Comment: Cuto ff threshold at 50 ng/mL. Performed By: #### U TOX2 ####[facility] [id number] [address] [place] Cocaine Ql (U) Negative Normal Negative [facility] Comment on above: Order Comment: Speci men Type: URINE SPECIMENOrdering Facility: [facility] Address: [address] [place] [address] Result Comment: Cuto ff threshold at 300 ng/mL. Performed By: #### U TOX2 ####[facility] [id number] [place] [address] [place] Ethanol (U) [Mass/Vol] 77 mg/dL High <11 [facility] Comment on above: Order Comment: Speci men Type: URINE SPECIMENOrdering Facility: [facility] Address: [address] [place] [address] Performed By: #### U TOX2 ####[facility]ORYCLIA [id number] [place] [address] [facility] [place] Opiates Screen Ql (U) Negative Normal Negative [facility] Comment on above: Order Comment: Speci men Type: URINE SPECIMENOrdering Facility: [facility] Address: [address] [place] [address] Result Comment: Cuto ff threshold at 300 ng/mL. Performed By: #### U TOX2 ####[facility]ORY[facility]IA [id number] [address] oxyCODONE cutoff Screen (U) [Mass/Vol] Negative Normal Negative [facility] Comment on above: Order Comment: Speci men Type: URINE SPECIMENOrdering Facility: [facility] Address: [address] [place] [address] Result Comment: Cuto ff threshold at 100 ng/mL. Performed By: #### U TOX2 ####[facility] [id number] [address] Phencyclidine Ql (U) Negative Normal Negative [facility] Comment on above: Order Comment: Speci men Type: URINE SPECIMENOrdering Facility: [facility] Address: [address] [place] [address] Result Comment: Cuto ff threshold at 25 ng/mL. Performed By: #### U TOX2 ####[facility]ORYCLIA [id number] [address] ALLIED HEALTHon 03-09-2024 ALLIED HEALTH HNO ID: [id number] Author: LAMONT CURTIS Tech Service: Radiology Author Type: Senior Director Type: Allied Health Filed: 03/09/2024 22:07 Note Text: Radiology Service Progress Note PATIENT NAME: Berry Abad DATE OF SERVICE: March 09, 2024 TIME: 10:07 PM PATIENT IDENTITY VERIFICATION COMPLETED USING TWO (2) IDENTIFIERS: Name and Date of confirmed by patient verbally and Name and Date of confirmed by identification band. FALL SCREENING: Has the patient had 2 falls in the last year or 1 fall with injury or currently using an Ambulatory Assistive Device (Walker, Cane, Wheelchair, Crutches, etc.)? Emergency Room Patient: Screened in ED PATIENT GENDER DATA: Female. status: : No status: NO. PATIENT RELEVANT IMPLANT DATA REVIEWED: Not Applicable PATIENT PRESENTS WITH AN IMPLANTABLE OR ATTACHED MEDICAL STAFF DIRECTOR: No RADIOLOGY DEPARTMENT: CT; Exam(s) Completed: Brain PERIPHERAL IV DATA: Not applicable SIGNED BY: Melissa Ramirez March 09, 2024 10:07 PM Normal [facility] CBC panel Auto (Bld)on 03-09 Erythrocyte distribution width (RBC) [Ratio] 12.6 % Normal 11.5-15.0 [facility] Comment on above: Order Comment: Speci men Type: BLOOD SPECIMEN [facility] Facility: [facility] Address: [address] [place] [address] Performed By: #### 2 4321-2 #### [facility] CLIA [id number] [address] STATES OF [facility] Hematocrit (Bld) [Volume fraction] 42.3 % Normal 36.0-46.0 [facility] Comment on above: Order Comment: Speci men Type: BLOOD SPECIMEN Ordering Facility: [facility] Address: [address] [place] [address] Performed By: #### 2 4321-2 #### [facility] CLIA [id number] [address] OF [facility] Hemoglobin (Bld) [Mass/Vol] 14.1 g/dL Normal 11.5-15.5 [facility] Comment on above: Order Comment: Speci men Type: BLOOD SPECIMEN Ordering Facility: [facility] Address: [address] [place] [address] Performed By: #### 2 4321-2 #### [facility] CLIA [id number] [address] STATES OF [facility] MCH (RBC) [Entitic mass] 33.7 pg Normal 26.0-34.0 [facility] Comment on above: Order Comment: Speci men Type: BLOOD SPECIMEN [facility] Address: [address] [place] [address] Performed By: #### 2 4321-2 #### [facility] CLIA [id number] [address] [place] MCHC (RBC) [Mass/Vol] 33.3 g/dL Normal 30.5-36.0 [facility] Comment on above: Order Comment: Speci men Type: BLOOD SPECIMEN Order[facility] Address: [address] [place], [place] [address] Performed By: #### 2 4321-2 #### [facility] CLIA [id number] [address] MCV (RBC) [Entitic vol] 101.0 fL High 80.0-100.0 [facility] Comment on above: Order Comment: Speci men Type: BLOOD SPECIMEN [facility] Facility: [facility] Address: [address] [place] [address] Performed By: #### 2 4321-2 #### [facility] CLIA [id number] [address] Nucleated RBC (Bld) [#/Vol] 10*3/uL Normal <0.01 [facility] Comment on above: Order Comment: Speci men Type: BLOOD SPECIMEN [facility] Address: [address] [place] [address] Performed By: #### 2 4321-2 #### [facility] CLIA [id number] [address] Platelet mean volume (Bld) [Entitic vol] 9.9 fL Normal 9.0-12.7 [facility] Comment on above: Order Comment: Speci men Type: BLOOD SPECIMEN Order[facility] Facility: [facility] Address: [address] [place] [address] Performed By: #### 2 4321-2 #### [facility] CLIA [id number] [address] Platelets (Bld) [#/Vol] 245 10*3/uL Normal 150-400 [facility] Comment on above: Order Comment: Speci men Type: BLOOD SPECIMEN [facility] Address: [address] [place] [address] Performed By: #### 2 4321-2 #### [facility] CLIA [id number] [address] [place] RBC (Bld) [#/Vol] 4.19 10*6/uL Normal 3.90-5.20 [facility] Comment on above: Order Comment: Speci men Type: BLOOD SPECIMEN [facility]: [facility] Address: [address] [place] [address] Performed By: #### 2 4321-2 #### [facility] CLIA [id number] [address] WBC (Bld) [#/Vol] 10.54 10*3/uL Normal 3.70-11.00 [facility] Comment on above: Order Comment: Speci men Type: BLOOD SPECIMEN [facility] Address: [address] [place] [address] Performed By: #### 2 4321-2 #### [facility] CLIA [id number] [address] CONFIRM BLOOD TYPEon 024 ABO O Normal [facility] Comment on above: Order Comment: Speci men Type: BLOOD SPECIMEN [facility] Address: [address] [place] [address] Performed By: #### C ONABO #### [facility] CLIA [id number] [address] Rh Nom (Bld) Positive Normal [facility] Comment on above: Order Comment: Speci men Type: BLOOD SPECIMEN [facility] Address: [address] [place] [address] Performed By: #### C ONABO #### [facility] CLIA [id number] [address] [place] [address] CONSULTon 03-09-2024 CONSULT HNO ID: [id number] Author: NANNETTE DE LEON PA-C Service: Neurosurgery Author Type: Physician Manual Equipment Mechanic Type: Consults Filed: 03/09/2024 20:50 Note Text: Attestation signed by Monty Bagley MD at 03/09/2024 9:06 PM HANDP reviewed, and I agree with the above. 78F with a R parietal SDH after a fall. Large scalp hematoma / laceration s/p repair. Keppra x7 days. Repeat CT brain later tonight for stability. No neurosurgical intervention anticipated at this time. Monty Bagley MD CONSULT: NEUROSURGERY SERVICE SERVICE DATE: 03/09/2024 SERVICE TIME: 2016 REASON FOR CONSULT: Trauma, Right parietal SDH REQUESTING PHYSICIAN: Dr. Silva PRIMARY CARE PHYSICIAN: No primary care provider on file. Consultation requested by Dr. Silva for an opinion regarding SDH. My final recommendations will be communicated back to the requesting physician by way of shared Medical record or letter to requesting physician via US mail. Trauma Level: 3 Mechanism: Fall I was present at the bedside for in-person evaluation of the patient at 2020, being contacted at 2012 HISTORY OF PRESENT ILLNESS: Subjective Ms. Abad is a 78 year old female with PMHx significant for HTN, who presents for trauma transfer from [facility] after GLF, found to have right parietal SDH with no MLS. Per report given by ER patient did not lose consciousness after witnessed GLF by . Per patient, she reports being amnesic to events when she started to nap in living room chair when was watching TV to when she was in ambulance. Currently reports right posterior headache. Denies N/V, numbness/tingling, weakness, changes in vision/hearing, new episodes of bowel/bladder incontinence, fever/chills, hx of seizures/migraines, chest pain/SOB, and abdominal pain. Antiplatelet/Anticoag ulants: No Past Medical History: PAST MEDICAL HISTORY Diagnosis Date Essential hypertension, benign Generalized anxiety disorder Anxiety, Generalized Insomnia, unspecified Malignant neoplasm of breast (female), unspecified site 1984 Breast cancer, right breast Other and unspecified hyperlipidemia on Crestor Past Surgical History: PAST SURGICAL HISTORY Procedure Laterality Date APPENDECTOMY AGE 16 BREAST RECONSTRUCTION DELIVERY ONLY 1965, 1966, 1966 , low cervical COLONOSCOPY FLX DX W/COLLJ SPEC WHEN PFRMD 11/2004 Colonoscopy - repeat in 10 years. EXCISION GANGLION WRIST DORSAL/VOLAR PRIMARY right wrist MASTECTOMY 1988 RIGHT BREAST PAST SURGICAL HISTORY OF tumor removed buttock PAST SURGICAL HISTORY OF 11/27/08 reconstruction right breast - at [facility] - Dr. Henry Gandhi TONSILLECTOMY PRIMARY/SECONDARY Family History: FAMILY HISTORY Problem Relation Age of Onset Heart Father age 77 Heart Paternal Aunt CVA Cancer Brother LUNG (smoker) other (HYPERLIPIDEMIA [Other]) Mother Alzheimer's Disease Mother age 54 - age 77 COPD Sister Social History: Social History Tobacco Use Smoking status: Former Packs/day: 0.50 Years: 40.00 Additional pack years: 0.00 Total pack years: 20.00 Types: Cigarettes Quit date: 09/26/2001 Years since quittin.4 Smokeless tobacco: Never Substance Use Topics Alcohol use: Yes Comment: Occasionally Drug use: No COMPLETE REVIEW OF SYSTEMS: Constitutional: Denies fatigue, fever/chills Eyes: Denies vision changes, diplopia, pain Ears: Denies hearing changes, tinnitus, vertigo Cardiovascular: Denies chest pain, palpitations Respiratory: Denies cough, wheezing, dyspnea GI: Denies dysphagia, gastric reflux, nausea, vomiting, change in bowel or bladder habits : Denies incontinence, urinary infections Musculoskeletal: Denies joint pain, muscle pain, limitation of movement, stiffness, weakness Integumentary: Denies rashes, color changes in skin or nails Neurological: See HPI Psychiatric: Denies anxiety, depression, suicidal ideation, hallucinations Endocrine: Denies heat/cold intolerance, polyuria, polyphagia, polydipsia, diaphoresis Heme/Lymph: Denies easy bruising or bleeding, history of blood transfusions and reactions Allergy/Immune: Denies fatigue, fever/chills, malaise, night sweats, recent weight changes Objective MEDS: (Not in a hospital admission) No current facility-administered medications for this encounter. Allergies As of Date: 03/09/2024 Allergen Noted Reaction SHELLFISH 10/03/2007 Hives HCTZ [HYDROCHLOROTHIAZIDE] 11/07/2008 RED DYE 05/25/2005 ZYBAN [BUPROPION (SMOKING DETER)] 05/25/2005 Fully Assessed 06/19/2012 ALLERGIES: ALLERGIES Allergen Reactions Shellfish Hives Has had some shellfish with out any reaction. Hctz [Hydrochloroth* NOT ALLERGIC - but got hypokalemia enough to cause irregular he (more content not included)... Normal [facility] Comprehensive metabolic 2000 panelon 03-09-2024 Albumin [Mass/Vol] 4.3 g/dL Normal 3.9-4.9 [facility] Comment on above: Order Comment: Speci men Type: BLOOD SPECIMENOrdering Facility: [facility] Address: [address] [place] [address] Performed By: #### 2 4323-8, 3040-3 ####[facility]ORATORYCLIA [id number] [place] [address] [place] ALP [Catalytic activity/Vol] 86 U/L Normal 34-123 [facility] Comment on above: Order Comment: Speci men Type: BLOOD SPECIMENOrdering Facility: [facility] Address: [address] [place] [address] Performed By: #### 2 4323-8, 3040-3 ####[facility]ORATORYCLIA [id number] [place] [address] [place] ALT With P-5'-P [Catalytic activity/Vol] 28 U/L Normal 7-38 [facility] Comment on above: Order Comment: Speci men Type: BLOOD SPECIMENOrdering Facility: [facility] Address: [address] [place] [address] Performed By: #### 2 4323-8, 3040-3 ####[facility]ATORYCLIA [id number] [place] [address] [place] Anion gap [Moles/Vol] 11 mmol/L Normal 8-15 [facility] Comment on above: Order Comment: Speci men Type: BLOOD SPECIMENOrdering Facility: [facility] Address: [address] [place] [address] Performed By: #### 2 4323-8, 3040-3 ####[facility]ORATORYCLIA [id number] [place] [address] [place] AST With P-5'-P [Catalytic activity/Vol] 33 U/L Normal 13-35 [facility] Comment on above: Order Comment: Speci men Type: BLOOD SPECIMENOrdering Facility: [facility] Address: [address] [place] [address] Performed By: #### 2 4323-8, 3040-3 ####[facility]ORATORYCLIA [id number] [place] [address] [place] Bilirubin [Mass/Vol] 0.4 mg/dL Normal 0.2-1.3 [facility] Comment on above: Order Comment: Speci men Type: BLOOD SPECIMENOrdering Facility: [facility] Address: [address] [place] [address] Performed By: #### 2 4323-8, 0-3 ####[facility]ATORYCLIA [id number] [place] [address] [place] Calcium [Mass/Vol] 9.1 mg/dL Normal 8.5-10.2 [facility] Comment on above: Order Comment: Speci men Type: BLOOD SPECIMENOrdering Facility: [facility] Address: [address] [place] [address] Performed By: #### 2 4323-8, 3040-3 ####[facility]ORATORYCLIA [id number] [place] [address] [place] Chloride [Moles/Vol] 104 mmol/L Normal 98-107 [facility] Comment on above: Order Comment: Speci men Type: BLOOD SPECIMENOrdering Facility: [facility] Address: [address] [place] [address] Performed By: #### 2 4323-8, 3040-3 ####[facility]ATORYCLIA [id number] [place] [address] [place] CO2 [Moles/Vol] 24 mmol/L Normal 22-30 [facility] Comment on above: Order Comment: Speci men Type: BLOOD SPECIMENOrdering Facility: [facility] Address: [address] [place] [address] Performed By: #### 2 4323-8, 3040-3 ####[facility]IA [id number] [place] [id number] [place] [facility] Creatinine [Mass/Vol] 0.94 mg/dL Normal 0.58-0.96 [facility] Comment on above: Order Comment: Speci men Type: BLOOD SPECIMENOrdering Facility: [facility] Address: [address] [place] [address] Performed By: #### 2 4323-8, 3040-3 ####[facility] LABORATORYCLIA [id number] [place] [id number] [facility] Creatinine and Glomerular filtration rate.predicted panel (S/P/Bld) 62 mL/min/1.73m??? Normal >=60 [facility] Comment on above: Order Comment: Speci men Type: BLOOD SPECIMENOrdering Facility: [facility] Address: [address] [place] [address] Result Comment: Nelia mated Glomerular Filtration Rate (eGFR) is calculated using the 2020 CKD-EPI creatinine equation. This equation utilizes serum creatinine, sex, and age as parameters. The creatinine assay has traceable calibration to isotope dilution-mass spectrometry. Refer to KDIGO guidelines for clinical interpretation. In patients with unstable renal function, e.g. those with acute kidney injury, the eGFR may not accurately reflect actual GFR. Performed By: #### 2 4323-8, 3040-3 ####[facility] [id number] [place] [id number] [place] Glucose [Mass/Vol] 99 mg/dL Normal 74-99 [facility] Comment on above: Order Comment: Speci men Type: BLOOD SPECIMENOrdering Facility: [facility] Address: [address] [place] [address] Result Comment: The [place] Diabetes Association (ADA) provides guidance for cutoff values for fasting glucose and random glucose. The ADA defines fasting as no caloric intake for at least 8 hours. Fasting plasma glucose results between 100 to 125 mg/dL indicate increased risk for diabetes (prediabetes). Fasting plasma glucose results greater than or equal to 126 mg/dL meet the criteria for diagnosis of diabetes. In the absence of unequivocal hyperglycemia, results should be confirmed by repeat testing. In a patient with classic symptoms of hyperglycemia or hyperglycemic crisis, random plasma glucose results greater than or equal to 200 mg/dL meet the criteria for diagnosis of diabetes. Reference: Standards of Medical Care in Diabetes 2016, [place] [employer]. Diabetes Care. 2016.39(Suppl 1). Performed By: #### 2 4323-8, 0-3 ####[facility] LABORATORYCLIA [id number] [place] [address] [place] Potassium [Moles/Vol] 4.2 mmol/L Normal 3.7-5.1 [facility] Comment on above: Order Comment: Nadinei men Type: BLOOD SPECIMENOrdering Facility: [facility] Address: [address] [place] [address] Performed By: #### 2 43238, 3039-3 ####[facility]ORATORYCLIA [id number] [place] [address] [place] Protein [Mass/Vol] 6.5 g/dL Normal 6.3-8.0 [facility] Comment on above: Order Comment: Nadinei men Type: BLOOD SPECIMENOrdering Facility: [facility] Address: [address] [place] [address] Performed By: #### 2 4323-8, 0-3 ####[facility]ORATORYCLIA [id number] [place] [address] [place] Sodium [Moles/Vol] 139 mmol/L Normal 136-144 [facility] Comment on above: Order Comment: Speci men Type: BLOOD SPECIMENOrdering Facility: [facility] Address: [address] [place] [address] Performed By: #### 2 4323-8, 0-3 ####[facility]ORATORYCLIA [id number] [place] [address] [place] Urea nitrogen [Mass/Vol] 11 mg/dL Normal 7-21 [facility] Comment on above: Order Comment: Speci men Type: BLOOD SPECIMENOrdering Facility: [facility] Address: [address] [place] [address] Performed By: #### 2 4323-8, 3040-3 ####[facility]ORATORYCLIA [id number] [place] [address] [place] ECG COMPLETEon 03-09-2024 ECG COMPLETE Ventricular Rate : 6 4 BPM Atrial Rate : 64 BPM P-R Interval : 212 ms QRS Duration : 114 ms Q-T Interval : 452 ms QTC Calculation(Bazett) : 466 ms Calculated P [place] : 41 degrees Calculated R [place] : 40 degrees Calculated T [place] : 25 degrees SINUS RHYTHM WITH 1ST DEGREE A-V BLOCK LOW VOLTAGE QRS INCOMPLETE RIGHT BUNDLE BRANCH BLOCK SEPTAL INFARCT , AGE UNDETERMINED ST & T WAVE ABNORMALITY, CONSIDER ANTERIOR ISCHEMIA ABNORMAL ECG NO PREVIOUS ECGS AVAILABLE Confirmed by MD LAUREN ERICK ([id number]) on 10/28/2024 5:29:35 AM NAME : BERRY ABAD PID : [id number] : 1945 Gender : Female Race : ORD : [id number] Procedure Date : Mar 09 2024 21:32:39 Edit Date : Oct 28 2024 05:29:36 Diagnosis: SINUS RHYTHM WITH 1ST DEGREE A-V BLOCK LOW VOLTAGE QRS INCOMPLETE RIGHT BUNDLE BRANCH BLOCK SEPTAL INFARCT , AGE UNDETERMINED ST & T WAVE ABNORMALITY, CONSIDER ANTERIOR ISCHEMIA ABNORMAL ECG NO PREVIOUS ECGS AVAILABLE Confirmed by MD LAUREN ERICK ([id number]) on 10/28/2024 5:29:35 AM Test Reason : Chest Pain Location : 4 : [facility] EM Overread By : MD LAUREN ERICK Edited By : MD LAUREN ERICK Referred By : , Acquired by : SHIN TORRES [facility] ED NOTEon 03-09-2024 ED NOTE HNO ID: [id number] Author: AUDELIA HEBERT RN Service: Emergency Medicine Author Type: Registered Nurse Type: ED Notes Filed: 03/09/2024 21:26 Note Text: CT notified patient is ready for scans. Normal [facility] ED NOTE HNO ID: [id number] Author: AUDELIA HEBERT RN Service: Emergency Medicine Author Type: Registered Nurse Type: ED Notes Filed: 03/09/2024 21:24 Note Text: Pt 88% on RA. Pt placed on 2LNC. ER Resident made aware Normal [facility] ED NOTE HNO ID: [id number] Author: AUDELIA HEBERT RN Service: Emergency Medicine Author Type: Registered Nurse Type: ED Notes Filed: 03/09/2024 21:21 Note Text: Pt asking for pain medication. ER Resident made aware Normal [facility] ED NOTE HNO ID: [id number] Author: AUDELIA HEBERT RN Service: Emergency Medicine Author Type: Registered Nurse Type: ED Notes Filed: 03/09/2024 21:01 Note Text: Guaze and kerlex dressing placed on pt head Normal [facility] ED NOTE HNO ID: [id number] Author: AUDELIA HEBERT RN Service: Emergency Medicine Author Type: Registered Nurse Type: ED Notes Filed: 03/09/2024 20:24 Note Text: Neuro surg at bedside Normal [facility] ED PROV NOTEon 03-09-2024 ED PROV NOTE HNO ID: [id number] Author: ZOILA SILVA DO Service: Emergency Medicine Author Type: Physician Type: ED Provider Notes Filed: 03/09/2024 20:37 Note Text: TEACHING ATTESTATION: I personally saw and examined the patient. I reviewed the resident?s note. I agree with the resident?s assessment and plan unless otherwise noted. A 78-year-old female transferred from [facility] secondary to a fall after having a syncopal episode at home and fell back and struck her head. Patient was transferred to [facility] secondary to a subdural hemorrhage. Patient is awake and talking. She states she may have fell asleep in the chair and got up to to the kitchen and passed out in the kitchen. She did strike her head on cabinets. She presents with hematoma and abrasion to the left parietal scalp. No definite laceration. Patient also has hematoma to the right posterior occipital region. No active bleeding from the right posterior occipital wound. No focal neurologic deficits. We will add labs to evaluate for syncope as well as EKG if these were not done at [place]. Both trauma and neurosurgery will evaluate. Patient seen with Dr. Barber, physician, please see her note for full history and physical exam. I agree with the above without significant change. ZOILA SHEIKH 03/09/242036 Normal [facility] ED PROV NOTE HNO ID: [id number] Author: ZOILA SILVA DO Service: Emergency Medicine Author Type: Physician Type: ED Provider Notes Filed: 03/27/2024 07:36 Note Text: ED Provider Note Patient Name: Berry Abad : 1945 SERVICE DATE: 03/09/24 History Patient presents with: Fall: Transfer from [facility] for subdural hematoma after a witnessed fall by her . Pt stood and then fell and hit head with +LOC. No blood thinners. Lac on back of head. C spine cleared at [facility]. Pt does not remember incident but is A/Ox4 on arrival. 78-year-old female presents to the emergency department via EMS as transfer from [facility] for evaluation of subdural hematoma. Patient had a witnessed fall earlier today which was ground-level. She did hit her head with LOC. States that she felt dizzy and lightheaded before this episode. Patient is not currently on blood thinners. Does take daily aspirin but did not take it today. Initially had a small abrasion in the back of her head. Her C-spine was cleared at [facility]. Upon arrival, patient complains of a headache but denies dizziness, lightheadedness, palpitations, shortness of breath, chest pain, abdominal pain. She is alert and oriented in the emergency department. Of note, patient not currently on blood thinners. PAST MEDICAL HISTORY Diagnosis Date Essential hypertension, benign Generalized anxiety disorder Anxiety, Generalized Insomnia, unspecified Malignant neoplasm of breast (female), unspecified site 1983 Breast cancer, right breast Other and unspecified hyperlipidemia on Crestor PAST SURGICAL HISTORY Procedure Laterality Date APPENDECTOMY AGE 16 BREAST RECONSTRUCTION DELIVERY ONLY 1965, 1966, 1966 , low cervical COLONOSCOPY FLX DX W/COLLJ SPEC WHEN PFRMD 11/2004 Colonoscopy - repeat in 10 years. EXCISION GANGLION WRIST DORSAL/VOLAR PRIMARY right wrist MASTECTOMY 1988 RIGHT BREAST PAST SURGICAL HISTORY OF tumor removed buttock PAST SURGICAL HISTORY OF 11/27/08 reconstruction right breast - at [facility] - Dr. Henry Gandhi TONSILLECTOMY PRIMARY/SECONDARY FAMILY HISTORY Problem Relation Age of Onset Heart Father age 77 Heart Paternal Aunt CVA Cancer Brother LUNG (smoker) other (HYPERLIPIDEMIA [Other]) Mother Alzheimer's Disease Mother age 54 - age 77 COPD Sister Social History Tobacco Use Smoking status: Former Packs/day: 0.50 Years: 40.00 Additional pack years: 0.00 Total pack years: 20.00 Types: Cigarettes Quit date: 09/26/2001 Years since quittin.4 Smokeless tobacco: Never Substance and Sexual Activity Alcohol use: Yes Comment: Occasionally Drug use: No Sexual activity: Yes Partners: Male Comment: Postmenopausal ALLERGIES Allergen Reactions Shellfish Hives Has had some shellfish with out any reaction. Hctz [Hydrochloroth* NOT ALLERGIC - but got hypokalemia enough to cause irregular heart rate (per Dr. Gamez) Red Dye Zyban [Bupropion (S* Review of Systems Eyes: Negative for visual disturbance. Respiratory: Negative for chest tightness and shortness of breath. Cardiovascular: Negative for chest pain and palpitations. Gastrointestinal: Negative for abdominal pain, nausea and vomiting. Neurological: Positive for headaches. Negative for dizziness and light-headedness. All other systems reviewed and are negative. Physical Exam Vitals [03/09/242009] BP Pulse Temp Temp src Resp SpO2 Weight Height 160/80 66 36.9 ?C (98.5 ?F) Oral 20 (!) 92 % 73.3 kg (161 lb 11.2 oz) -- Physical Exam Vitals and nursing note reviewed. HENT: Head: Comments: Abrasion noted to the occipital region of the head. Mouth/Throat: Mouth: Mucous membranes are moist. Pharynx: Oropharynx is clear. Eyes: Extraocular Movements: Extraocular movements intact. Conjunctiva/sclera: Conjunctivae normal. Pupils: Pupils are equal, round, and reactive to light. Cardiovascular: Rate and Rhythm: Normal rate and regular rhythm. Pulses: Normal pulses. Heart sounds: Normal heart sounds. Pulmonary: Effort: Pulmonary effort is normal. Breath sounds: Normal breath sounds. Abdominal: General: Abdomen is flat. Bowel sounds are normal. Palpations: Abdomen is soft. Tenderness: There is no abdominal tenderness. Musculoskeletal: General: No swelling. Skin: General: Skin is warm and dry. Capillary Refill: Capillary refill takes less than 2 seconds. Neurological: Mental Status: She is alert and oriented to person, place, and time. Cranial Nerves: No cranial nerve deficit. Sensory: No sensory deficit. Motor: No weakness. Coordination: Coordination normal. Gait: Gait normal. Deep Tendon Reflexes: Reflexes normal. Diagnostic Testing ED Labs Ordered and Reviewed - No data to display Procedures ED Course / Clinical Impression Clinical Impressions as of 03/10/24 0054 Subdural hematoma (HCC) MDM / Dis (more content not included)... Normal [facility] Ethanol SerPl-mCncon 024 Ethanol [Mass/Vol] 61 mg/dL High <11 [facility] Comment on above: Order Comment: Bob pitt Type: BLOOD SPECIMEN [facility] Address: [address] [place] [address] Performed By: #### 2 4321-2 #### [employer] [facility] CLIA [id number] [address] [place] [address] [place] HIGH SENSITIVITY TROPONIN T (INITIAL)on 03-09-2024 Troponin T.cardiac High sensitivity method [Mass/Vol] 7 ng/L Normal <12 [facility] Comment on above: Order Comment: Bob pitt Type: BLOOD SPECIMEN [facility] Address: [address] [place] [address] Result Comment: When assessing risk for acute coronary syndromes: In patients undergoing blood draw greater than or equal to 2 hours from symptom onset, with history of very low to moderate risk and non-ischemic ECG, an initial hs-Troponin T less than 12 ng/L AND a 1 hour delta hs-Troponin T less than 3 ng/L should be considered very low risk for 30 day MACE. Performed By: #### 2 4321-2 #### [facility] CLIA [id number] [address] [place] [address] [place] HIGH SENSITIVITY TROPONIN T (SECOND)on 03-09-2024 Troponin T.cardiac High sensitivity method [Mass/Vol] 8 ng/L Normal <12 [facility] Comment on above: Order Comment: Bob pitt Type: BLOOD SPECIMEN [facility] Address: [address] [place] [address] Result Comment: When assessing risk for acute coronary syndromes: In patients undergoing blood draw greater than or equal to 2 hours from symptom onset, with history of very low to moderate risk and non-ischemic ECG, an initial hs-Troponin T less than 12 ng/L AND a 1 hour delta hs-Troponin T less than 3 ng/L should be considered very low risk for 30 day MACE. Performed By: #### 2 4321-2 #### [facility] CLIA [id number] [address] STATES OF [facility] Lipase SerPl-cCncon 03-09-20 24 Lipase [Catalytic activity/Vol] 43 U/L Normal 16-61 [facility] Comment on above: Order Comment: Bob pitt Type: BLOOD SPECIMENOrdering Facility: [facility] Address: [address] [place] [address] Performed By: #### 2 4323-8, 3040-3 ####[facility]ORATORYCLIA [id number] [address] OF [facility] PT panel Coag (PPP)on 2023 INR Coag (PPP) [Relative time] 1.0 {INR} Normal 0.9-1.3 [facility] Comment on above: Order Comment: Bob pitt Type: BLOOD SPECIMENOrdering Facility: [facility] Address: [address] [place] [address] Result Comment: Brandy min K Antagonist (VKA) Therapeutic Range: INR 2 to 3 (Target INR of 2.5) Note: For patients treated with VKA drugs, such as warfarin, the [place] [employer] 2012 Guideline recommends a therapeutic INR range of 2 to 3 (target INR of 2.5). This recommendation includes high-risk patients with antiphospholipid syndrome with previous arterial or venous thromboembolism, current-generation mechanical or bioprosthetic aortic heart valve replacement. Note: Patients with mechanical aortic valve replacement and additional risk factors for thromboembolic events (atrial fibrillation, previous thromboembolism, LV dysfunction, hypercoagulable conditions) or an older generation mechanical AVR (i.e., ball in-Cage) or any mechanical MVR should have a INR therapeutic range of 2.5 to 3.5 (target INR of 3). Sarai LARSEN, et al. Chest 2012, 141:7S-47S Lizy RA, et al. JACC 2017, 70: 252-289 Performed By: #### 3 4528-0, 41065-1 ####[facility]ORYCLIA [id number] [address] PT Coag (PPP) [Time] 10.3 s Normal 9.7-13.0 [facility] Comment on above: Order Comment: Speci men Type: BLOOD SPECIMENOrdering Facility: [facility] Address: [address] [place] [address] Performed By: #### 3 4528-0, 75280-8 ####[facility]ORY[facility] [id number] [address] TYPE + SCREENon 03-09-2024 ABO O Normal [facility] Comment on above: Order Comment: Speci men Type: BLOOD SPECIMEN [facility] Address: [address] [place] [address] Performed By: #### T SCR #### [facility] CLIA [id number] [address] HISTORICAL AB SCR STATUS Negative [facility] Comment on above: Order Comment: Speci men Type: BLOOD SPECIMEN [facility] Address: [address] [place] [address] Performed By: #### T SCR #### [facility] CLIA [id number] [address] Rh Nom (Bld) Positive Normal [facility] Comment on above: Order Comment: Speci men Type: BLOOD SPECIMEN [facility] Address: [address] [place] [address] Performed By: #### T SCR #### [facility] CLIA [id number] [address] TYPE AND SCREEN EXPIRATION 03/12/2024 23:59 Normal [facility] Comment on above: Order Comment: Speci men Type: BLOOD SPECIMEN [facility] Address: [address] [place] [address] Performed By: #### T SCR #### [facility] CLIA [id number] 1 [place] [address] [place] Urinalysis complete pnl Uron 03-09-2024 Urinalysis complete panel (U) COLOR: Light Yellow CLARITY: Turbid GLUCOSE, URINE: Negative BILIRUBIN, URINE: Negative KETONES, URINE: Negative SPECIFIC GRAVITY, UR: 1.007 HEMOGLOBIN/BLOOD, UR: Negative PH, URINE: 6.0 PROTEIN, URINE: Negative UROBILINOGEN: Normal NITRITES: Negative LEUKEST: 500 Roxanne/uL WBC, URINE: >25 /HPF RBC, URINE: 3-5 /HPF BACTERIA: Moderate NON-SQUAMOUS EPITHELIAL CELLS: Few ORGANISM ID: 1 >=100,000 CFU/ml Escherichia coli ORGANISM ID: 2 <10,000 CFU/ml Proteus species Insignificant colony count. No further workup. ORGANISM ID: 1 (ESCHERICHIA COLI) ------ ANTIBIOTIC INTERPRETATION CLIFFORD STATUS REFERENCE RANGE ------ Ampicillin S <=4 F Susceptible <=8 , Intermediate >8 , Resistant >16 Cefazolin S 2 F Susceptible 0-16 , Intermediate <0 or >16 , Resistant >16 For uncomplicated urinary tract infections, cefazolin results can be used to predict susceptibility or resistance to cephalexin. Ceftriaxone S <=1 F Susceptible <=1 , Intermediate >1 , Resistant >=4 Cefepime S <=1 F Susceptible <=2 , Susceptible-Dose Dependent >2 , Resistant >=16 Ertapenem S <=0.25 F Susceptible <=0.5 , Intermediate >.5 , Resistant >1 Meropenem S <=0.5 F Susceptible <=1 , Intermediate >1 , Resistant >2 Aztreonam S <=2 F Susceptible <=4 , Intermediate >4 , Resistant >=16 Ampicillin/Sulbact S 2 F Piperacillin/Tazobac S <=2 F Gentamicin S <=2 F Susceptible <=4 , Intermediate >4 , Resistant >8 Trimeth sulfameth S <=0.5 F Ciprofloxacin S <=0.25 F Susceptible <0.5 , Intermediate >=.5 , Resistant >=1 Nitrofurantoin S <=16 F Susceptible <=32 , Intermediate >32 , Resistant >64 Abnormal [facility] Comment on above: Order Comment: Speci men Type: URINE SPECIMENOrdering Facility: [facility] Address: [address] [place] [address] Performed By: #### 2 4356-8 ####[facility] LABORATORYCLIA [id number] [place], [place] [id number] [place] [address] [place] XR CHEST 1V FRONTALon 2023 XR CHEST 1V FRONTAL * * *Final Report* * * DATE OF EXAM: Mar 09 2024 9:22PM [id number] - XR CHEST 1V FRONTAL / PROCEDURE REASON: Other * * * * Physician Interpretation * * * * EXAMINATION: CHEST RADIOGRAPH (SINGLE VIEW AP OR PA) CLINICAL HISTORY: Other, trauma MQ: [id number] Comparison: Chest x-ray 06/14/2009 RESULT: Lines, tubes, and devices: None. Lungs and pleura: No consolidation. No pleural effusion or pneumothorax. Cardiomediastinal silhouette: Stable cardiomediastinal silhouette. Other: No displaced fracture. IMPRESSION: No acute radiographic abnormality. 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 Transcribe Date/Time: Mar 09 2024 9:50P Dictated by : PEMA TRACEY MD This examination was interpreted and the report reviewed and electronically signed by: PEMA TRACEY MD on Mar 09 2024 9:50PM EST [id number] N Normal [facility] XR PELVIS 1V APon 03-09-2024 XR PELVIS 1V AP * * *Final Report* * * DATE OF EXAM: Mar 09 2024 9:20PM [id number] - XR PELVIS 1V AP / PROCEDURE REASON: Pelvic trauma * * * * Physician Interpretation * * * * EXAMINATION: XR PELVIS 1V AP CLINICAL HISTORY: Pelvic trauma Technique: XR PELVIS 1V AP -- 1 views on 2 images Comparison: None RESULT: There is no acute fracture or malalignment. The pelvic ring is intact. The included bowel gas pattern is unremarkable. IMPRESSION: No acute abnormality. 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 Transcribe Date/Time: Mar 09 2024 9:48P Dictated by : PEMA TRACEY MD This examination was interpreted and the report reviewed and electronically signed by: PEMA TRACEY MD on Mar 09 2024 9:49PM EST [id number] N Normal [facility] aPTT PPPon 03-09-2024 aPTT Coag (PPP) [Time] 26.0 s Normal 23.0-32.4 [facility] Comment on above: Order Comment: Speci men Type: BLOOD SPECIMEN [facility] Address: [address] [place] [address] Performed By: #### 2 4321-2 #### [facility] CLIA [id number] [address] STATES OF [facility] Absolute lymphocyte countOrd ered By: Aria Sanchez on 06-27-2023 Lymphocytes Auto (Unsp spec) [#/Vol] 1.06 10*3/uL 0.83-4.51 [facility] Basophil percentageOrdered B y: Ariaaba Sanchez on 06-27-2023 Basophils/100 WBC (Bld) 0.5 % 0-1 [facility] Bilirubin [Mass/Vol] 0.70 mg/dL 0.20-1.00 [facility] Comment on above: For patients on eltr ombopag therapy, use of Dimension Winside TBIL is not recommended. Chloride [Moles/Vol] 109 mmol/L 98-107 [facility] Eosinophils/100 WBC (Bld) 4.6 % 0-5 [facility] Glucose [Mass/Vol] 102 mg/dL 74-106 [facility] Comment on above: Fasting Glucose resu lt from 100 to 125 mg/dL suggests IMPAIRED HOMEOSTASIS per A.D.A. criteria. Neutrophils (Bld) [#/Vol] 3.7 10*3/uL 2.0-7.7 [facility] Neutrophils/100 WBC (Bld) 66.7 % 47-70 [facility] Potassium [Moles/Vol] 3.7 mmol/L 3.5-5.1 [facility] Protein [Mass/Vol] 6.5 g/dL 6.4-8.2 [facility] Sodium [Moles/Vol] 141 mmol/L 136-145 [facility] WBC (Bld) [#/Vol] 5.6 10*3/uL 4.4-11.0 [facility] Blood erythrocytes count (nu mber/volume)Ordered By: Aria Sanchez on 06-27-2023 RBC (Bld) [#/Vol] 4.15 10*6/uL 4.2-5.4 [facility] Blood hemoglobin measurement (mass/volume)Ordered By: Aria Sanchez on 06-27-2023 Hemoglobin (Bld) [Mass/Vol] 13.6 g/dL 12.0-15.0 [facility] Blood lymphocytes/100 leukoc ytesOrdered By: Aria Sanchez on 06-27-2023 Lymphocytes/100 WBC (Bld) 18.9 % 19-41 [facility] Blood monocytes/100 leukocyt esOrdered By: Aria Sanchez on 06-27-2023 Monocytes/100 WBC (Bld) 9.1 % 0-10 [facility] Blood platelet mean volumeOr dered By: Aria Sanchez on 06-27-2023 Platelet mean volume (Bld) [Entitic vol] 9.4 fL 6.2-12.0 [facility] Determination of erythrocyte mean corpuscular volume (MCV)Ordered By: Aria Sanchez on 06-27-2023 MCV (RBC) [Entitic vol] 102.2 fL 81-99 [facility] Hematocrit Auto (Bld) [Volum e fraction]Ordered By: Aria Sanchez on 06-27-2023 Hematocrit (Bld) [Volume fraction] 42.4 % 37-47 [facility] Laboratory - Chemistry and C hemistry - challengeOrdered By: Aria Sanchez on 06-27-2023 ALP [Catalytic activity/Vol] 90 U/L 45-117 [facility] ALT [Catalytic activity/Vol] 37 U/L 13-56 [facility] CO2 [Moles/Vol] 26.0 mmol/L 21.0-32.0 [facility] Globulin (S) [Mass/Vol] 2.8 g/dL 2.2-4.2 [facility] Urea nitrogen/Creatinine [Mass ratio] 15.8 mg/mg 10-20 [facility] - Hematology and Cell countsOrdered By: Aria Sanchez on 06-27-2023 Erythrocyte distribution width (RBC) [Entitic vol] 46.5 fL 35.1-43.9 [facility] Erythrocyte distribution width (RBC) [Ratio] 12.3 % 11.6-14.6 [facility] Immature granulocytes/100 WBC (Bld) 0.200 % 0.0-0.9 [facility] Comment on above: IG% - Immature Granu locytes (promyelocytes, myelocytes and metamyelocytes) > 1% indicates that a LEFT SHIFT is Present. MCH (RBC) [Entitic mass] 32.8 pg 27.0-32.0 [facility] Nucleated RBC/100 WBC (Bld) [Ratio] 0 % 0-5 [facility] MCHC Auto (RBC) [Mass/Vol]Or dered By: Aria Sanchez on 06-27-2023 MCHC (RBC) [Mass/Vol] 32.1 g/dL 32-36 [facility] No Panel InformationOrdered By: Aria Sanchez on 06-27-2023 Estimated GFR (MDRD) Amer 68 mL/min >60 [facility] Comment on above: GFR Calc Estimated GFR (MDRD) Non-Af Amer 56 mL/min >60 [facility] Comment on above: Non- GFR Calc Thyroid Stimulating Hormone (TSH) 4.01 uIU/mL 0.358-3.74 [facility] Urine Microalbumin/Creatinine Ratio 193.3 mg/g CRE <30 [facility] Platelets bldOrdered By: Maria T Sanchez on 06-27-2023 Platelets (Bld) [#/Vol] 222 10*3/uL 150-450 [facility] Serum or plasma albumin moncho urement (mass/volume)Ordered By: Aria Sanchez on 06-27-2023 Albumin [Mass/Vol] 3.7 g/dL 3.2-5.0 [facility] Serum or plasma albumin/glob ulin mass ratioOrdered By: Aria Sanchez on 06-27-2023 Albumin/Globulin [Mass ratio] 1.3 {ratio} 0.9-2.4 [facility] Serum or plasma calcium moncho urement (mass/volume)Ordered By: Aria Sanchez on 06-27-2023 Calcium [Mass/Vol] 8.3 mg/dL 8.5-10.1 [facility] Serum or plasma creatinine m easurement (mass/volume)Ordered By: Aria Sanchez on 06-27-2023 Creatinine [Mass/Vol] 1.01 mg/dL 0.55-1.02 [facility] Comment on above: The validity of the calculated GFR & GFRAA in patients over 70 years has not been determined. Clinical correlation is essential. Serum or plasma urea nitroge n measurement (mass/volume)Ordered By: Aria Sanchez on 06-27-2023 Urea nitrogen [Mass/Vol] 16 mg/dL 7-18 [facility] Thin prep Papanicolaou smear with manual screeningOrdered By: Aria Sanchez on 06-27-2023 Thin prep Papanicolaou smear with manual screening 27 U/L 15-37 [facility] Thin prep Papanicolaou smear with manual screening 6 5-15 [facility] Thin prep Papanicolaou smear with manual screening 150.0 mg/L NO RANGE EST. [facility] Urine creatinine measurement (mass/volume)Ordered By: Aria Sanchez on 06-27-2023 Creatinine (U) [Mass/Vol] 77.60 mg/dL NO RANGE EST. [facility] Basophil percentageon 2021 Basophil percentage 50-100 SEEN /hpf 0-5 [facility] Work Phone: Bilirubin [Mass/Vol] 0.60 mg/dL 0.20-1.00 [facility] Work Phone: Comment on above: For patients on eltr ombopag therapy, use of Dimension Winside TBIL is not recommended. Chloride [Moles/Vol] 106 mmol/L 98-107 [facility] Work Phone: Cholesterol [Mass/Vol] 256 mg/dL <200 [facility] Work Phone: Comment on above: <200 mg/dL Desirable 200-240 mg/dL Borderline >240 mg/dL High Risk Glucose [Mass/Vol] 94 mg/dL 74-106 [facility] Work Phone: Potassium [Moles/Vol] 4.4 mmol/L 3.5-5.1 [facility] Work Phone: Protein [Mass/Vol] 7.2 g/dL 6.4-8.2 [facility] Work Phone: Sodium [Moles/Vol] 141 mmol/L 136-145 [facility] Work Phone: Triglyceride [Mass/Vol] 99 mg/dL <199 [facility] Work Phone: Comment on above: The drugs N-Acetylcy steine and Metamizole may falsely depress this assay.Serum Triglycerides Reference Interval Normal <150 mg/dL Borderline high 150 - 199 mg/dL High 200 - 499 mg/dL Very High > or = 500 mg/dL Bilirubin Test strip Ql (U)o n 05-24-2022 Bilirubin Ql (U) Negative Negative [facility] Work Phone: Ketones Test strip Ql (U)on 05-24-2022 Ketones Ql (U) Negative Negative [facility] Work Phone: Laboratory - Chemistry and C hemistry - challengeon 05-24-2022 ALP [Catalytic activity/Vol] 99 U/L 45-117 [facility] Work Phone: ALT [Catalytic activity/Vol] 30 U/L 13-56 [facility] Work Phone: CO2 [Moles/Vol] 29.0 mmol/L 21.0-32.0 [facility] Work Phone: Free T4 [Mass/Vol] 1.19 ng/dL 0.76-1.46 [facility] Work Phone: Globulin (S) [Mass/Vol] 3.4 g/dL 2.2-4.2 [facility] Work Phone: Urea nitrogen/Creatinine [Mass ratio] 18.1 mg/mg 10-20 [facility] Work Phone: Mucus LM Ql (Urine sed)on Mucus Ql (Urine sed) 0 SEEN /hpf [facility] Work Phone: Nitrite Test strip Ql (U)on 05-24-2022 Nitrite Ql (U) Negative Negative [facility] Work Phone: No Panel Informationon 05-24 Estimated GFR (MDRD) Amer 75 mL/min >60 [facility] Work Phone: Comment on above: GFR Calc Estimated GFR (MDRD) Non-Af Amer 62 mL/min >60 [facility] Work Phone: Comment on above: Non- GFR Calc Thyroid Stimulating Hormone (TSH) 1.50 uIU/mL 0.358-3.74 [facility] Work Phone: Urine Microalbumin/Creatinine Ratio 107.8 mg/g CRE <30 [facility] Work Phone: Vitamin D 25-Hydroxy 108.4 ng/mL [facility] Work Phone: Comment on above: Vitamin D 25(OH) Sta tus Range Deficiency <20 ng/mL (50nmol/L) Insufficiency 20 - 30 ng/mL (50 - 75 nmol/L) Sufficiency 30 - 100 ng/mL (75 - 250 nmol/L) Toxicity >100 ng/mL (>250 nmol/L)Evidence suggests that patients undergoing fluorescein dye angiography can retain small amounts of fluorescein in the body for up to 48 to 72 hours post-treatment. In the cases of patients with renal insufficiency, retention could be much longer. Samples containing fluorescein can produce falsely elevated values when tested with the [employer] Wattioaur Vitamin D assay. With fluorescein interference, observed Vitamin D values can be as high as >150 ng/mL (>375 nmol/L). Samples should be resubmitted post fluorescein clearance to ensure there is no interference with Vitamin D test results. Protein Test strip Ql (U)on 05-24-2022 Protein Ql (U) Negative Negative [facility] Work Phone: Serum or plasma albumin moncho urement (mass/volume)on 05-24-2022 Albumin [Mass/Vol] 3.8 g/dL 3.2-5.0 [facility] Work Phone: Serum or plasma albumin/glob ulin mass ratioon 05-24-2022 Albumin/Globulin [Mass ratio] 1.1 {ratio} 0.9-2.4 [facility] Work Phone: Serum or plasma calcium moncho urement (mass/volume)on 05-24-2022 Calcium [Mass/Vol] 9.3 mg/dL 8.5-10.1 [facility] Work Phone: Serum or plasma cholesterol in HDL measurement (mass/volume)on 05-24-2022 Cholesterol in HDL [Mass/Vol] 74 mg/dL >40 [facility] Work Phone: Comment on above: The drugs N-Acetylcy steine and Metamizole may falsely depress this assay. Reference Range HDL <40 mg/dL Low HDL Cholesterol HDL >or= 60 mg/dL High HDL Cholesterol Serum or plasma cholesterol in VLDL measurement (mass/volume)on 05-24-2022 Cholesterol in VLDL [Mass/Vol] 20 mg/dL 5-40 [facility] Work Phone: Serum or plasma creatinine m easurement (mass/volume)on 05-24-2022 Creatinine [Mass/Vol] 0.94 mg/dL 0.55-1.02 [facility] Work Phone: Comment on above: The validity of the calculated GFR & GFRAA in patients over 70 years has not been determined. Clinical correlation is essential. Serum or plasma low density lipoprotein (LDL) cholesterol measurement (mass/volume)on 05-24-2022 Cholesterol in LDL [Mass/Vol] 162 mg/dL 0-130 [facility] Work Phone: Serum or plasma urea nitroge n measurement (mass/volume)on 05-24-2022 Urea nitrogen [Mass/Vol] 17 mg/dL 7-18 [facility] Work Phone: Squamous epithelial cells de tection in urine sediment by light microscopyon 05-24-2022 Epithelial cells.squamous LM Ql (Urine sed) 0 SEEN /hpf 5-10 [facility] Work Phone: Thin prep Papanicolaou smear with manual screeningon 05-24-2022 Thin prep Papanicolaou smear with manual screening 29 U/L 15-37 [facility] Work Phone: Thin prep Papanicolaou smear with manual screening 6 5-15 [facility] Work Phone: Thin prep Papanicolaou smear with manual screening 16.5 mg/L NO RANGE EST. [facility] Work Phone: Urine blood detectionon 04-27 RBC Ql (U) Negative Negative [facility] Work Phone: RBC Ql (U) 0 SEEN /hpf 0-5 [facility] Work Phone: Urine clarityon 05-24-2022 Clarity (U) Clear Clear [facility] Work Phone: Urine color determinationon 05-24-2022 Color (U) Yellow Yellow [facility] Work Phone: Urine creatinine measurement (mass/volume)on 05-24-2022 Creatinine (U) [Mass/Vol] 15.30 mg/dL NO RANGE EST. [facility] Work Phone: Urine glucose detectionon Glucose Ql (U) Normal mg/dl Normal [facility] Work Phone: Urine leukocyte esterase det ection by dipstickon 05-24-2022 Leukocyte esterase Test strip Ql (U) 500 /ul Negative [facility] Work Phone: Urine pHon 05-24-2022 pH (U) 6.0 [pH] 5.0 - 8.0 [facility] Work Phone: Urine sediment bacteria coun t by microscopy (number/high power field)on 05-24-2022 Bacteria LM.HPF (Urine sed) [#/Area] 1 /[HPF] None Seen [facility] Work Phone: Urine specific gravity measu rementon 05-24-2022 Specific gravity (U) [Rel density] 1.010 1.002-1.030 [facility] Work Phone: Urobilinogen Auto test strip Ql (U)on 05-24-2022 Urobilinogen Ql (U) Normal mg/dl Normal [facility] Work Phone: Culture, urine Bacteria identified Cx Nom (U) Escherichia coli [facility] Work Phone: Vital Signs Date Time Vital Sign Value Performing Clinician Faci lity 04-11-2025 14:53-0400 Body temperature 98.2 [degF] Dr. Aria Sanchez MD Work Phone: [facility] 04-11-2025 14:53-0400 Diastolic blood pressure 85 mm[Hg] Dr. Aria Sanchez MD Work Phone: [facility] 04-11-2025 14:53-0400 Heart rate 82 /min Dr. Aria Sanchez MD Work Phone: [facility] 04-11-2025 14:53-0400 Inhaled oxygen flow rate 2 L/min Dr. Aria Sanchez MD Work Phone: [facility] 04-11-2025 14:53-0400 Respiratory rate 19 /min Dr. Aria Sanchez MD Work Phone: [facility] 04-11-2025 14:53-0400 SaO2% (BldA) [Mass fraction] 91 % Dr. Aria Sanchez MD Work Phone: [facility] 04-11-2025 14:53-0400 Systolic blood pressure 157 mm[Hg] Dr. Aria Sanchez MD Work Phone: [facility] 04-10-2025 16:39-0400 Body height 162.[address] Aria Sanchez MD Work Phone: 5(741)[phone] [place] [address] 04-10-2025 16:39-0400 Body mass index (BMI) [Ratio] 26 kg/m2 Dr. Aria Sanchez MD Work Phone: 1(350)385-957276 [address] 04-10-2025 16:39-0400 Body weight 68.[address] Aria Sanchez MD Work Phone: 2(996)[phone] [place] [address] 03-28-2025 09:53-0400 Diastolic blood pressure 79 mm[Hg] Dr. Aria Sanchez MD Work Phone: 6(455)475-906152 [place] [address] 03-28-2025 09:53-0400 Heart rate 86 /min Dr. Aria Sanchez MD Work Phone: 2(568)329-295652 [place] [address] 03-28-2025 09:53-0400 Respiratory rate 18 /min Dr. Aria Sanchez MD Work Phone: 3(729)[phone] [place] [address] 03-28-2025 09:53-0400 SaO2% (BldA) [Mass fraction] 90 % Dr. Aria Sanchez MD Work Phone: 2(237)[phone] [place] [address] 03-28-2025 09:53-0400 Systolic blood pressure 123 mm[Hg] Dr. Aria Sanchez MD Work Phone: 9(007)879-643576 [address] 03-22-2025 08:11-0400 Body height 162.[address] Aria Sanchez MD Work Phone: 7(185)751-091076 [address] 03-22-2025 08:11-0400 Body mass index (BMI) [Ratio] 24.9 kg/m2 Dr. Aria Sanchez MD Work Phone: 4(980)908-179076 [address] 03-22-2025 08:11-0400 Body temperature 97.6 [degF] Dr. Aria Sanchez MD Work Phone: 3(115)[phone] [address] 03-22-2025 08:11-0400 Body weight 65.[address] Aria Sanchez MD Work Phone: 1(438)[phone] [place] [address] 03-22-2025 08:11-0400 Diastolic blood pressure 85 mm[Hg] Dr. Aria Sanchez MD Work Phone: 0(416)925-954247 [place] [address] 03-22-2025 08:11-0400 Heart rate 52 /min Dr. Aria Sanchez MD Work Phone: 7(415)[phone] [place] [address] 03-22-2025 08:11-0400 Respiratory rate 18 /min Dr. Aria Sanchez MD Work Phone: 7(157)866-345952 [place] [address] 03-22-2025 08:11-0400 SaO2% (BldA) [Mass fraction] 98 % Dr. Aria Sanchez MD Work Phone: 4(879)[phone] [place] [address] 03-22-2025 08:11-0400 Systolic blood pressure 147 mm[Hg] Dr. Aria Sanchez MD Work Phone: 3(561)[phone] [place] [address] 03-18-2025 11:00-0400 Body height 162.[address] Aria Sanchez MD Work Phone: 2(047)[phone] [place] [address] 03-18-2025 11:00-0400 Body weight 66.[address] Aria Sanchez MD Work Phone: 4(752)[phone] [place] [address] 03-15-2025 09:14-0400 Body mass index (BMI) [Ratio] 25 kg/m2 Dr. Aria Sanchez MD Work Phone: 3(119)[phone] [place] [address] 03-13-2025 14:32-0400 Diastolic blood pressure 78 mm[Hg] Dr. Aria Sanchez MD Work Phone: 1(846)[phone] [place] [address] 03-13-2025 14:32-0400 Heart rate 68 /min Dr. Aria Sanchez MD Work Phone: 8(485)[phone] [place] [address] 03-13-2025 14:32-0400 Respiratory rate 18 /min Dr. Aria Sanchez MD Work Phone: 1(935)[phone] [place] [address] 03-13-2025 14:32-0400 SaO2% (BldA) [Mass fraction] 97 % Dr. Aria Sanchez MD Work Phone: 9(156)[phone] [place] [address] 03-13-2025 14:32-0400 Systolic blood pressure 130 mm[Hg] Dr. Aria Sanchez MD Work Phone: [facility] 03-06-2025 14:56-0400 Body height 162.[address] Aria Sanchez MD Work Phone: [facility] 03-06-2025 14:56-0400 Body mass index (BMI) [Ratio] 25.4 kg/m2 Dr. Aria Sanchez MD Work Phone: [facility] 03-06-2025 14:56-0400 Body weight 67.[address] Aria Sanchez MD Work Phone: [facility] 03-06-2025 14:56-0400 Diastolic blood pressure 89 mm[Hg] Dr. Aria Sanchez MD Work Phone: [facility] 03-06-2025 14:56-0400 Respiratory rate 16 /min Dr. Aria Sanchez MD Work Phone: [facility] 03-06-2025 14:56-0400 Systolic blood pressure 162 mm[Hg] Dr. Aria Sanchez MD Work Phone: [facility] 04-12-2024 11:52-0400 Body height 165.1 cm Radha Fegatelli [employer] Work Phone: [facility] 04-12-2024 11:52-0400 Body mass index (BMI) [Ratio] 24.4 kg/m2 Radha Fegatelli [employer] Work Phone: [facility] 04-12-2024 11:52-0400 Body weight 66.5 kg Radha Fegatelli [employer] Work Phone: [facility] 04-12-2024 11:52-0400 Diastolic blood pressure 81 mm[Hg] Radha Fegatelli [employer] Work Phone: [facility] 04-12-2024 11:52-0400 Heart rate 67 /min Radha Fegatelli [employer] Work Phone: [facility] 07-18-2024 11:52-0400 Respiratory rate 16 /min Radha Nguyenariel [employer] Work Phone: [facility] 04-12-2024 11:52-0400 SaO2% (BldA) [Mass fraction] 96 % Radha Mosley [employer] Work Phone: [facility] 04-12-2024 11:52-0400 Systolic blood pressure 130 mm[Hg] Radha Nguyenariel [employer] Work Phone: [facility] Encounters Encounter Date Encounter Type Care Provider Facility Start: 04-19-2025 ambulatory Aria La Motte Facility:[facility] Start: 04-18-2025 End: 04-18-[address] Giacomo Philip MD -[facility] Work Phone: Start: 04-18-2025 End: 04-18-[address] Aria Sanchez MD Work Phone: -[facility] Start: 04-11-2025 Non-patient / Non-visit Dr. Giacomo landry MD -[facility] Start: 04-10-2025 ambulatory Giacomo Philip Facility:[facility] Start: 04-10-2025 ambulatory Rufina Decker y:VEE Start: 04-10-2025 Non-patient / Non-visit Dr. Gurinder Godinez MD -[facility] Start: 04-10-2025 Non-patient / Non-visit Dr. Giacomo landry MD -[facility] Start: 04-10-2025 End: 04-11-2025 Admission to same day surgery center Dr. Rufina Godinez MD -[facility] Start: 04-10-2025 End: 04-11-[address] Aria Sanchez MD Work Phone: [facility] Start: 04-02-2025 End: 04-02-2025 ambulatory Aria Sanchez Facility:[facility] Start: 04-02-2025 End: 04-02-2025 Non-patient / Non-visit Dr. Kameron Gamez MD -[facility] roup Work Phone: Start: 03-28-2025 End: 03-28-[address] Giacomo Philip MD -[facility] Work Phone: Start: 03-28-2025 End: 03-28-[address] Aria Sanchez MD Work Phone: -[facility] Start: 03-26-2025 Non-patient / Non-visit Dr. Shelli young MD -[facility] Work Phone: Start: 03-22-2025 End: 03-22-[address] Rufina Godinez MD -[facility] Work Phone: Start: 03-22-2025 End: 03-22-[address] Aria Sanchez MD Work Phone: [facility] Work Phone: Start: 03-18-2025 End: 03-18-2025 Admission to same day surgery center Dr. Kameron Gamez MD -Certified Nutritionist/Special Procedures Work Phone: Start: 03-18-2025 End: 03-18-[address] Aria Sanchez MD Work Phone: [facility] Work Phone: Start: 03-13-2025 End: 03-13-[address] Aria Sanchez MD Work Phone: [facility] Work Phone: Start: 03-13-2025 End: 03-13-[address] Giacomo Philip MD -[facility] Work Phone: Start: 03-07-2025 End: 03-07-[address] Giacomo Philip MD -[facility] Work Phone: Start: 03-07-2025 End: 03-07-[address] Aria Sanchez MD Work Phone: [facility] Work Phone: Start: 03-06-2025 End: 03-06-[address] Aria Sanchez MD Work Phone: [facility] Work Phone: Start: 03-06-2025 End: 03-06-[address] Rufina Godinez MD -Laboratory Specimen Work Phone: Start: 03-06-2025 End: 03-06-[address] Rufina Godinez MD -[facility] Work Phone: Start: 03-06-2025 End: 03-06-[address] Aria Sanchez MD Work Phone: [facility] Work Phone: Start: 03-06-2025 End: 03-06-2025 ambulatory Rufina Godinez Facility:[facility] Start: 03-01-2025 End: 03-01-[address] Aria Sanchez MD Work Phone: -[facility] Start: 03-01-2025 End: 03-01-[address] Kameron Gamez MD -[facility] Work Phone: Start: 02-28-2025 ambulatory [facility] Facility: [facility] Start: 02-28-2025 Non-patient / Non-visit Dr. Kell GARVEY -[facility] Start: 02-20-2025 End: 02-20-[address] Aria Sanchez MD Work Phone: [facility] Work Phone: Start: 02-20-2025 End: 02-20-[address] Aria Sanchez MD -[facility] Work Phone: Start: 02-20-2025 End: 02-20-2025 ambulatory Aria Sanchez Facility:[facility] Start: 02-15-2025 End: 02-15-[address] Aria Sanchez MD Work Phone: [facility] Work Phone: Start: 02-15-2025 End: 02-15-[address] Aria Sanchez MD -Outpatient Breast Imaging Work Phone: Start: 02-15-2025 End: 02-15-2025 ambulatory Aria Sanchez Facility:[facility] Start: 02-05-2025 End: 02-05-[address] Aria Sanchez MD Work Phone: [facility] Work Phone: Start: 02-05-2025 End: 02-05-[address] Aria Sanchez MD -Laboratory Work Phone: Start: 02-05-2025 End: 02-05-2025 ambulatory Aria Sanchez Facility:[facility] Start: 12-19-2024 End: 12-19-2024 ambulatory Aria Sanchez Facility[place] Start: 12-19-2024 End: 12-19-[address] Kameron Gamez MD -[facility] Work Phone: Start: 09-20-2024 End: 09-20-2024 ambulatory Aria Sanchez Facility:[facility] Start: 08-06-2024 End: 08-06-2024 ambulatory Aria Sanchez Facility:[facility] Start: 07-12-2024 End: 07-12-2024 ambulatory Aria Sanchez Facility:[facility] Start: 06-22-2024 End: 06-22-2024 ambulatory Aria Sanchez Facility:[facility] Start: 05-21-2024 End: 05-21-2024 ambulatory Aria Sanchez Facility:[facility] Start: 05-10-2024 End: 05-10-2024 ambulatory RADHA MOSLEY [place] [place] Start: 05-10-2024 End: 05-10-2024 Patient encounter procedure Radha Mosley [employer] Work Phone: [facility] Comment on above: Subdural hematoma (H CC) (Primary Dx) Start: 05-10-2024 End: 05-10-2024 Telemedicine consultation with patient Radha Crumsukhdeep [employer]OTELLON.COLLEGE TUTOR Work Phone: [facility] Start: 05-10-2024 End: 05-10-2024 ambulatory Aria Sanchez Facility:[facility] Start: 05-07-2024 End: 05-07-2024 [facility] Start: 05-07-2024 End: 05-07-2024 Subsequent hospital visit by physician [facility] Wstr (I-Stat) Work Phone: [facility] Comment on above: Subdural hematoma (H CC) [S06.5XAA] Start: 05-01-2024 End: 05-01-2024 ambulatory Aria Sanchez Facility:[facility] Start: 04-12-2024 End: 04-12-2024 Patient encounter procedure Radha Mosley ABENA Work Phone: [facility] Comment on above: Subdural hematoma (H CC) (Primary Dx) Start: 04-12-2024 End: 04-12-2024 [facility] [place] Start: 04-09-2024 End: 04-09-2024 ambulatory ARIA SANCHEZ Facility:[facility] Start: 04-09-2024 End: 04-09-2024 Subsequent hospital visit by physician [facility] (I-Stat) Work Phone: [facility] Comment on above: SDH (subdural hemato ma) (HCC) [S06.5XAA] Start: 03-12-2024 Telephone encounter Lindy bauer PhD Work Phone: Neurology Comment on above: Appointment Start: 03-09-2024 Emergency department patient visit RADHAMAYTE MOSLEY Facility:[facility] Start: 07-13-2023 Non-patient / Non-visit Dr. Jaylon Sanchez Work Phone: [facility] Start: 07-13-2023 End: 07-13-[address] Aria Sanchez Work Phone: [facility] Work Phone: Start: 07-13-2023 End: 07-13-[address] Aria Sanchez Work Phone: [facility]-Cardiovascular Services Work Phone: Start: 06-27-2023 End: 06-27-[address] Aria Sanchez Work Phone: [facility]-Laboratory Work Phone: Start: 11-15-2022 End: 11-15-2022 ambulatory [facility] Work Phone: Start: 11-15-2022 End: 11-15-2022 Patient encounter procedure [facility]-Outpatient Breast Imaging Start: 05-24-2022 End: 05-24-2022 ambulatory [facility] Work Phone: Start: 05-24-2022 End: 05-24-2022 Patient encounter procedure [facility]-Laboratory, [place] Start: 06-10-2009 End: 06-19-2012 Patient encounter status Lindy Grayson PhD Work Phone: [facility] Procedures Date Procedure Procedure Detail Performing Clinician Start: 04-10-2025 Insertion of prosthe sis for breast Dr. Aria Sanchez MD Work Phone: Start: 04-10-[address] Aria Sanchez MD Work Phone: Start: 04-10-2025 Radionuclide sentine l lymph node study Dr. Aria Sanchez MD Work Phone: Start: 02-15-2025 Screening mammography eJd Sanchez MD Work Phone: Start: 02-05-[address] Aria Sanchez MD Work Phone: Start: 02-05-2025 Urine microalbumin/creatinine ratio measurement Dr. Aria Sanchez MD Work Phone: Comment on above: Previous reported re sult: 320.0 mg/g CREEdited by: SHYLA on 03/15/25:0950 AMENDED REPORT 03/15/25 0950 MALB:CREAT previously reported as: 320.0 mg/g CRE Start: 02-05-2025 Urnls dip stick/tabl et reagent auto microscopy Dr. Aria Sanchez MD Work Phone: Start: 05-07-2024 Ct head/brain w/o co ntrast material Radha Mosley [employer] Work Phone: Start: 04-09-2024 Ct head/brain w/o co ntrast material Aris Marin [employer]LE[employer]OR Work Phone: Start: 03-09-2024 Antibody screen RADHA KWONG Comment on above: Order Comment: Speci men Type: BLOOD SPECIMEN Ordering Facility: [facility] Address: [address] [place] [address] Performed By: #### T SCR #### [facility] CLIA [id number] [address] Start: 11-15-2022 Screening mammograph y of left breast Urine culture Plan of Treatment Date Care Activity Detail Author Start: 10-28-2032 Urine microalbumin profile DTaP,Tdap,Td Vaccine (2 - Td or Tdap) [facility] Start: 03-12-2027 Diabetes Screening Diabetes Screening [facility] Start: 04-11-2025 Patient discharge [facility] Start: 04-11-2025 Referral to service [facility] Start: 04-10-2025 End: 04-10-2025 Following clinical pathway protocol [facility] Start: 04-10-2025 Oxygen therapy [facility] Start: 04-10-2025 Catheterization of vein [facility] Start: 04-10-2025 Consultation [facility] Start: 04-10-2025 Incentive spirometry [facility] Start: 04-10-2025 Maintenance of drainage tube [facility] Start: 04-10-2025 Measuring intake and output [facility] Start: 04-10-2025 Notification of physician [facility] Start: 04-10-2025 Vital signs measurements [facility] Start: 04-10-2025 [facility] Start: 04-10-2025 Ambulation without limitation [facility] Start: 04-10-2025 Admission procedure [facility] Start: 03-19-2025 Patient discharge [facility] Start: 05-27-2024 Influenza vaccination Influenza Vaccine (#1) [facility] Start: 05-10-2024 End: 05-10-2024 Patient encounter procedure 05/10/2024 3:30 PM EDT [facility] [address] [place] [id number] Radha Mosley, [employer]OR [address] [place] [address] phone visit call [phone] CT 05/07 [facility] Comment on above: phone visit call [phone] CT 05/07 Start: 05-07-2024 End: 05-07-2024 Patient encounter procedure 05/07/2024 11:00 AM EDT Appointment [facility] [address] [place], [place] [id number] CT BRAIN WO IVCON [facility] Comment on above: CT BRAIN WO IVCON Start: 04-12-2024 End: 04-12-2024 Patient encounter procedure [facility] Comment on above: 4 week hosp f/u SDH - 4 week hosp f/ u Start: 04-09-2024 End: 04-09-2024 Patient encounter procedure 04/09/2024 10:00 AM EDT Appointment [facility] [address] [place] [address] SDH (subdural hematoma) (HCC) [S06.5XAA] [facility] Comment on above: SDH (subdural hematoma) (HCC) [S06.5XAA] Start: 01-07-2024 Covid-19 Vaccine ( season) Covid-19 Vaccine () [facility] Start: 09-26-2023 Advance Directive Discussion Advance Directive Discussion [facility] Start: 09-26-2023 Behavioral Health Screening Behavioral Health Screening [facility] Start: 1963 Annual PCP Team Chronic Disease Visit Annual PCP Team Chronic Disease Visit [facility] Start: 1963 BP Controlled (<130/80) BP Controlled (<130/80) [facility] Start: 1963 Depression Screening Depression Screening [facility] End: 05-12-2025 CT Head WO contrast CT BRAIN WO IVCON Radiology Routine Subdural hematoma (HCC) 1 Occurrences starting 04/12/2024 until 05/12/2025 [facility] Work Phone: Comment on above: 1 Occurrences starting 04/12/2024 until 05/12/2025 Electrocardiographic procedure [facility] Patient referral [facility] Work Phone: Immunizations Immunization Date Immunization Notes Care Provider Fa cility 06-11-2023 influenza virus vaccine, unspecified formulation Ct (I-Stat) Work Phone: [facility] 12-17-2020 Covid (Moderna) [facility] 11-19-2020 Covid (Moderna) [facility] 07-27-2007 influenza virus vaccine, unspecified formulation Lindy Grayson PhD Work Phone: [facility] Work Phone: 06-30-2007 tetanus and diphther ia toxoids, adsorbed, preservative free, for adult use (2 Lf of tetanus toxoid and 2 Lf of diphtheria toxoid) Lindy Grayson PhD Work Phone: [facility] Work Phone: Payers Date Payer Category Payer Self-pay [id number] 2021 Unknown MMO MMO MEDICARE SUPPLEMENT [id number] 2021-Present [phone] [address] [place] [address] Indemnity [id number] 2021 Unknown [id number] 2019 Medicare [id number] 2015 Private Health Insurance [id number] 2010 Medicare MEDICARE MEDICAR E A AND B [id number] 2010-Present [phone] [facility] [address] [place] [address] Medicare [id number] 2010 Medicare [id number] Unknown [id number] 2.16.840.1.311465.3.579.2. 462 Unknown [id number] 2.16.840.1.109141.3.579.2. 462 Unknown [id number] 2.16.840.1.900132.3.579.2. 462 Unknown [id number] 2.16.840.1.495813.3.579.2. 462 Unknown [id number] 2.16.840.1.617763.3.579.2. 462 Unknown [id number] 2.16.840.1.747870.3.579.2. 462 Unknown [id number] 2.16.840.1.185701.3.579.2. 462 Unknown [id number] 2.16.840.1.149126.3.579.2. 462 Unknown [id number] 2.16.840.1.019970.3.579.2. 462 Unknown [id number] 2.16.840.1.018583.3.579.2. 462 Unknown [id number] 2.16.840.1.119085.3.579.2. 462 Unknown [id number] 2.16.840.1.313676.3.579.2. 462 Unknown [id number] 2.16.840.1.704546.3.579.2. 462 Unknown [id number] 2.16.840.1.225829.3.579.2. 462 Unknown [id number] 2.16.840.1.878617.3.579.2. 462 Unknown [id number] 2.16.840.1.679055.3.579.2. 462 Unknown [id number] 2.16.840.1.468190.3.579.2. 462 Unknown [id number] 2.16.840.1.093952.3.579.2. 462 Unknown [id number] 2.16.840.1.307162.3.579.2. 462 Unknown [id number] 2.16.840.1.278525.3.579.2. 462 Unknown [id number] 2.16.840.1.082131.3.579.2. 462 Unknown [id number] 2.16840.1.117321.3.579.2. 462 Unknown [id number] 2.840.1.193636.3.579.2. 462 Unknown [id number] 2.16840.1.150955.3.579.2. 462 Unknown [id number] 2.16.840.1.049911.3.579.2. 462 Unknown [id number] 2.16.840.1.180362.3.579.2. 462 Unknown [id number] 2.16840.1.881015.3.579.2. 462 Unknown [id number] 2.16840.1.593475.3.579.2. 462 Unknown [id number] 2.16840.1.601264.3.579.2. 462 Unknown [id number] 2.840.1.533690.3.579.2. 462 Social History Date Type Detail Facility Start: 06-10-2021 End: 06-10-2021 Tobacco smoking status LAIS Unknown if ever smoked [facility] Start: 1945 Sex Assigned At Female [facility] Start: 06-19-2012 End: 07-02-2025 Tobacco smoking status NHIS Ex-smoker [facility] Work Phone: End: 09-26-2001 History of tobacco use Current smoker [facility] End: 09-26-2001 History of tobacco use Cigarette Smoker [facility] Start: 06-19-2012 End: 03-10-2024 Cigarettes smoked current (pack per day) - Reported 0.5 [facility] Start: 06-19-2012 End: 04-12-2024 Tobacco use and exposure Smokeless tobacco non-user [facility] Start: 05-10-2022 End: 05-10-2024 Alcohol intake Current drinker of alcohol (finding) [facility] Start: 03-10-2024 End: 03-12-2024 [facility] xaitmentities [facility] Has the [employer], or water [employer] threatened to shut off services in your home in past 12Mo No [facility] (I/We) worried whemichael er (my/our) food would run out before (I/we) got money to buy more. Never true [facility] In the past 12 month s, has lack of transportation kept you from medical appointments or from getting medications? No [facility] Start: 1945 Sex Assigned At Not on file [facility] NEGATED: Highlighted row Not [facility] Medical Equipment Procedure Code Equipment Code Equipment Origin al Text Equipment Identifier Dates Modified radical mastectomy with axillary lymph node dissection SUTURE,LIGA CLIP MED [id number] FDA Start: 04-10-2025 Modified radical mastectomy with axillary lymph node dissection SUTURE,LIGA CLIP SM LT-100 FDA Start: 04-10-2025 Modified radical mastectomy with axillary lymph node dissection SUTURE,LIGA CLIP SM LT-100 FDA Start: 04-10-2025 ([id number]) Implantable card iac monitor ()[id number] FDA Start: 03-20-2024 550cc tisue expa nder ([id number]) FDA Start: 04-10-2025 flex hd ([id number]) FDA Start: 04-10-2025 Goals Date Patient Goal Desired Activity /State Functional Status Date Assessment Result Facility 04-11-2025 Functional status Chair [facility] Work Phone: Mental Status Date Assessment Result Facility 04-11-2025 Cognitive function Level Of Cons ciousness Awake;Alert;Appropriate;Follow s Commands [facility] Work Phone: 04-10-2025 Cognitive function Voice/Name [facility] Work Phone: Clinical Notes 03-10-2024 to 04-11-2025 Note Date & Type Note Facility 04-11-2025 Discharge summary Note Date/Time April 11, 2025 2:56pm [facility] Medical Records Department [address] [place] [address] Instructions for Home/Discharge Instructions 04/11/25 0721 MR#: [id number] Acct: [id number] Name: BERRY ABAD Rep #:[id number] : 1945 79 From: Yajaira COOK PA-C PCP: Dr. Aria Sanchez MD Status:REG WYC Discharge Instructions DC O2, CPAP, BIPAP needs Home O2 Discharge instructions: No Dressing / Incision Discharge Activity: May Not Drive (5 days) and May Shower Lifting Restrictions: No lifting greater than 5 pounds Dressing / Incision Call your doctor if your incision/area has: Continuous Slow Oozing, Sudden Increased Bleeding, Increased Pain/ Swelling, Increased Redness, Foul Smelling Discharge and Swelling at the incision site Call your doctor if you observe: Fever of 101 or Higher Suture Line Care: Avoid Pulling/Pushing and Avoid Pinching/Bending Cleanse incision/area with: Soap & Water Follow Up Care Please Follow Up With: Rufina Godinez MD When: April 17 at 2:30 pm. Contact our office at [phone], option #4 for a nurse Test Results: Test results from this visit will be discussed in further detail at your follow-up appointment, if applicable. Discharge Plan Admission Primary Reason for Your Visit: S/p left breast mastectomy with sentinel lymph biopsy and skin sparing Attending Provider: Rufina Godinez Primary Care Provider: Aria Sanchez Consulting Providers: Giacomo Philip Instructions Additional Instructions / Restrictions: Breast tissue mechanical estimator placement Instructions for My Care at Home or Healthcare Facility The following instructions will help you know what to expect in the days following surgery. These are general instructions. Your surgeon and therapist may give you special instructions, which vary to some degree based on your specific procedure -- follow those as directed. Do not, however, hesitate to call if you have any questions or concerns. Splint Care/Dressing Care/Wound Care * Dressings - You may have a dressing over the operative site. * If the dressing feels too tight after you get home, it is ok to gently pull on the dressing to stretch it out/loosen it. * Do not put pressure over the breast incision site. Wear a loose bra with pa dding, no rubbing on the incision * Avoid smoking or other tobacco products. Smoking tobacco impairs wound healing and increases the risks of post-operative complications. * Tape over your incisions (if present) will fall off on its own ? Activities * For the first 4 weeks after surgery, try to balance your activity, allowing time for rest. * Avoid lifting, pushing, or pulling anything over 5 pounds. * Do not drive or operate heavy machinery within 24 hrs of surgery or while taking narcotic pain medication.? Pain Control/Medications * If you received an anesthetic block, your hand or arm may be numb for several hours. You will be discharged to home with medications, including an oral pain medication (analgesic). Rest and elevation are still one of the most important factors for pain control. Take your pain medication as needed, but do not wait for the pain to become out of control. * For severe pain, you may take prescription pain medication as directed, but please note that this may also contain Tylenol (e.g. Percocet). Do not take more than 4000mg of Tylenol (acetaminophen) from all sources daily.? * Pain medication may cause some lethargy, nausea, and or constipation. You should not drive/operate dangerous machinery while taking these medications. If these or other symptoms become significantly problematic, please your surgeon's office. * If prescribed oral antibiotics (Keflex, Clindamycin, or others), please take prescription for full duration as instructed. You should not have any pills remaining once completed (refills are written for your convenience should the course need to be extended, but generally they are not required). Diet (what I can eat): Resume normal diet Follow up * You will be seen (most likely) 1 to 2 weeks after surgery depending on the procedure. Follow-up appointment reminders:? (A list of any scheduled appointments is at the end of this document)? At your earliest convenience, please call [phone] to confirm/schedule a follow-up appointment with me in clinic. When to call your surgeon: * If any signs of surgical site infection develop: redness, pus, pain, increased swelling or foul odor at the incision site, fever, cold and clammy skin, or confusion. * Consistent temperature above 101?F (38.3?C). * The affected area gets swollen or much more painful. * You have excessive bleeding from surgical site (soaking through). If you experience difficulty breathing and/or shortness of breath, seek immediate medical attention. If experiencing any of the above complications or if you have any questions, call [phone] Drain Care:? A drain has been placed during surgery in order to prevent the accumulation of fluids beneath your skin. The drain decreases the chance of infection and helps in the healing process. The nursing staff will instruct you and your family on the care and recording of drainage. ? * You may shower with them. Let soap and water run down over drains, rinse and pat dry with clean towel. Reinforce with gauze or ABD pad around drain site if leaking occurs around the drain; this is not unusual.?Hold drains in your hand or attach to lanyard (or string) around your neck with safety pin so they do not hang from your body (the tension on your skin may cause them to be pulled out) while your are showering. * The drains are attached to you with suture. If your drain(s) falls out accidentally, place a clean piece of gauze over the drain site with tape and discard your drain.? * If your drain bulb loses suction or your drain has migrated out from the drain site, do not attempt to push the drain back into your skin. Cover the area with dry gauze. You may be asked by your surgeon to place a piece of semi occlusive dressing (tegaderm) over the drain site to keep the site clean and drain in place until you are seen in the office.? * When you are wearing clothes, attach drains to your clothes in a place where there is minimal/no tension on the insertion site to your skin.? * You should empty the drainage and record the output at least 2 times per day, or when the drainage fills the bulb almost intermediate. Please keep daily amounts of drainage separate for each drain for a 24-hour period (for example drain #1 put out 40 mL for 24 hours).? * Strip your drains daily as shown to you by your nurse prior to discharge to avoid them from becoming clogged:? * Wash your hands. * Strip tubing three times a day (more often if there are a lot of blood clots). * Grasp tubing close to body with one hand and pull toward body. With other hand grasp tubing below the first hand. Using an alcohol swab, pinch tubing tightly, sliding fingers down tubing, away from body. * Repeat 2 or 3 times. Be sure drainage is flowing into bulbs. * Measure the drainage in the bulb by either using the calibrations on the bulb or by emptying the Bulb into small measuring container 3 times a day (more often if there is a lot of drainage or they feel heavy) Open small lid on top of bulb. Pour drainage into container. Squeeze bulb and hold while replacing small lid. Bulb should be collapsed to be effective. Pin bulb to clothing so the weight will not pull on the insertion site. * Measure drainage and record amount each time you empty the bulbs. Hold container at eye level to read the numbers on the side of the container. Read the numbers in the ml column. Record amount of drainage on chart. * Record your drain output daily and bring this record with you to your next follow up appointment. Drains will typically be removed in the clinic when output is less than 30 mL/24 hours per drain over 2 consecutive days. For drain removal appointment, please call your doctors office directly to schedule.? Location: Drain #1 Drain #2 Drain #3 Drain #4 AM Noon PM AM Noon PM AM Noon PM AM Noon PM Date: Total (daily) AM Noon PM AM Noon PM AM Noon PM AM Noon PM Date: Total (daily) AM Noon PM AM Noon PM AM Noon PM AM Noon PM Date: Total (daily) AM Noon PM AM Noon PM AM Noon PM AM Noon PM Date: Total (daily) AM Noon PM AM Noon PM AM Noon PM AM Noon PM Date: Total (daily) 0 AM Noon PM AM Noon PM AM Noon PM AM Noon PM Date: Total (daily) AM Noon PM AM Noon PM AM Noon PM AM Noon PM Date: Total (daily) AM Noon PM AM Noon PM AM Noon PM AM Noon PM Date: Total (daily) AM Noon PM AM Noon PM AM Noon PM AM Noon PM Date: Total (daily) AM Noon PM AM Noon PM AM Noon PM AM Noon PM Date: Total (daily) AM Noon PM AM Noon PM AM Noon PM AM Noon PM Date: Total (daily) AM Noon PM AM Noon PM AM Noon PM AM Noon PM Date: Total (daily) AM Noon PM AM Noon PM AM Noon PM AM Noon PM Date: Total (daily) AM Noon PM AM Noon PM AM Noon PM AM Noon PM Date: Total (daily) AM Noon PM AM Noon PM AM Noon PM AM Noon PM Date: Total (daily) Discharge Orders/Prescriptions Prescriptions: New cephalexin 500 mg capsule 500 mg PO Q8H 14 Days Qty: 42 0RF acetaminophen 325 mg Tablet 650 mg PO Q6H PRN PRN (Reason: Pain Score 1-10) Qty: 0 0RF oxycodone 5 mg Tablet 5 mg PO Q6H PRN PRN (Reason: Pain Score 1-10) 3 Days Qty: 10 0RF docusate sodium [Colace] 100 mg capsule 100 mg PO BID Qty: 10 0RF Continued benzonatate 200 mg capsule 200 mg PO TID PRN (Reason: cough) Qty: 20 0RF Pepcid Complete 10-800-165 mg tablet,chewable 1 tab PO DAILY PRN (Reason: indigestion) metoprolol succinate [Toprol XL] 25 mg tablet extended release 24 hr 25 mg PO DAILY Qty: 90 3RF atorvastatin 40 mg tablet 40 mg PO QHS Qty: 90 3RF melatonin 10 mg capsule 20 mg PO HS PRN (Reason: insomnia) flhkvfye-ijn-lcws-FA-vit K-lut 1 EACH tablet 1 ea PO DAILY levothyroxine 75 mcg tablet 75 mcg PO DAILY Other Ambulatory Orders: 12 Lead EKG (Routine) Timeframe: 20250402 Location: None Selected Ordered By: Dr. Rufina Godinez Referrals / Follow Up: Aria Sanchez MD [Primary Care Provider] - Rufina Godinez MD [Med Staff - Active Staff] - 04/17/25 2:30 pm Disposition Disposition (needs filled in before D/C Order can be placed): Home, Self Care 04/11/25 07<Electronically signed by Yajaira COOK PA-C>Yajaira COOK PA-C CC: Dr. Aria Sanchez MD; Dr. Giacomo Philip MD ~ Signed ADDENDUM by BERTIN Landrum on 04/11/[address] Godinez's appointment changed to follow-up in 2 weeks on April 24 at 1:30 pm. Please contact our office to reschedule if you are unable to attend this appointment or need to change the date. Our office number is [phone], option #2 to schedule/change an appointment or option #4 to speak to a nurse. 04/11/25 0746<Electronically signed by Yajaira COOK PA-C>Yajaira Landrum PA-C cc: Dr. Aria Sanchez MD; Dr. Giacomo Philip MD ~* Signed ADDENDUM by BERTIN Landrum on 04/11/25 at 1455 Patient qualifies for home oxygen. She completed walking and resting home oxygenqualification and was unable to maintain an oxygen level of 90% or above on roomair. Patient was 93% on 2 liters of oxygen at rest. She was 94% on 4 liters of oxygen with ambulation. Patient will be discharged on home oxygen. Appropriate documentation and testing have been completed. Patient will need to follow-up with her PCP within 1 week to be evaluated prior to discontinuation of her oxygen. 04/11/251454<Electronically signed by Yajaira COOK PA-C>Yajaira Landrum PA-C cc: Dr. Aria Sanchez MD; Dr. Giacomo Philip MD ~* Signed [facility] Work Phone: 1(128) 669-748707-17-2025 Progress note Author Yajaira Landrum [facility] Note Date/Time April 11, 2025 2:55 pm [facility] Medical Records Department [address] [place] [address] Progress Note - Surgery 04/11/25 0642 MR#: [id number] Acct: [id number] Name: BERRY ABAD Rep #:[id number] : 1945 79 From: Yajaira COOK PA-C PCP: Dr. Aria Sanchez MD [place] [facility] [place] MS3 CB054-9 Subjective Subjective Patient evaluated resting comfortably in bed. She denies any nausea, vomiting. She notes minimal amount of incisional discomfort. She denies wearing oxygen at home. She notes this happened previously following another surgery. Objective Data Objective Data Vital Signs: Vital Signs Temp Pulse Resp BP Pulse Ox O2 Del Method O2 Flow Rate 98.2 F 95 18 142/90 H 97 Nasal Cannula 3 04/11/25 05:19 04/11/25 05:19 04/11/25 05:19 04/11/25 05:19 04/11/25 06:07 04/11/25 06:07 04/11/25 06:07 Oxygen Flow Rate (L/min) 3 Oxygen Delivery Method Nasal Cannula Weight: 151 lb 14.368 oz Body Mass Index (BMI) 26.0 Intake & Output: Intake and Output for Last 24 Hours 04/09/25 04/10/25 04/11/25 23:59 23:59 23:59 Intake Total 365.5 / 365.5 910.67 / 910.67 Output Total 200 / 200 40 / 40 Balance 165.5 / 165.5 870.67 / 870.67 Lab / Micro Data 04/11/25 05:40 Labs: Laboratory Results - last 24 hr 04/11/25 05:40: WBC 7.4, RBC 3.80 L, Hgb 12.4, Hct 37.8, MCV 99.5 H, MCH 32.6 H,MCHC 32.8, RDW Std Deviation 46.8 H, RDW Coeff of Toyin 13.0, Plt Count 199, MPV 9.5, Immature Gran % (Auto) 0.300, Neut % (Auto) 73.3 H, Lymph % (Auto) 18.0 L, Ware % (Auto) 7.3, Eos % (Auto) 0.8, Baso % (Auto) 0.3, Absolute Neuts (auto) 5.4, Absolute Lymphs (auto) 1.33, Nucleated RBC % 0 Radiography Diagnostic Testing: Radiology Impression [place] Node 04/10/25 08:05 IMPRESSION: Successful injection of 555 uCi of Tilmanocept injected subdermally for sentinelnode imaging. Reading Location: [facility] Physical Exam Chest Chest Narrative: Left chest- incision c/d/i. No erythema or infection noted. FADIA drains intact. Post-operative bra in place. Assessment & Plan Assessment/Plan (1) Invasive lobular carcinoma of breast in female: PLAN: I am following this patient in conjunction with Dr. Godinez. She will independently evaluate this patient. Discussed home-going instructions with the patient No lifting greater than 5 pounds Nursing will demonstrate drain care prior to discharge Continue to wean patient off of oxygen Ordered oxycodone to try inpatient. Will plan to send home on a small prescription if tolerate. Patient will follow-up with Dr. Godinez next Tuesday at 2:30pm Plan for discharge later today Charges/Coding Visit Charges Inpatient E&M: 50982 Subs Hosp L1 (post-op; no charge) 04/11/25716 <Electronically signed by Yajaira COOK PA-C> Cosigner Signature (if applicable): CC: ~ Signed ADDENDUM by BERTIN Landrum on 04/11/25 at 1454 Addendum Patient qualifies for home oxygen. She completed walking and resting home oxygenqualification and was unable to maintain an oxygen level of 90% or above on roomair. Patient was 93% on 2 liters of oxygen at rest. She was 94% on 4 liters of oxygen with ambulation. Patient will be discharged on home oxygen. Appropriate documentation and testing have been completed. Patient will need to follow-up with her PCP within 1 week to be evaluated prior to discontinuation of her oxygen. 04/11/25 1454<Electronically signed by Yajaira COOK PA-C> Cosigner Signature (if applicable): cc: ~* Signed [facility] Work Phone: 1(369) 770-160107-17-2025 Discharge summary [facility] Medical Records Department [address] [place] [address] Instructions for Home/Discharge Instructions 04/11/25720 MR#: [id number] Acct: [id number] Name: BERRY ABAD Rep #:[id number] : 1945 79 From: Yajaira COOK PA-C PCP: Dr. Aria Sanchez MD Status:REG [facility] Discharge Instructions DC O2, CPAP, BIPAP needs Home O2 Discharge instructions: No Dressing / Incision Discharge Activity: May Not Drive (5 days) and May Shower Lifting Restrictions: No lifting greater than 5 pounds Dressing / Incision Call your doctor if your incision/area has: Continuous Slow Oozing, Sudden Increased Bleeding, Increased Pain/ Swelling, Increased Redness, Foul Smelling Discharge and Swelling at the incision site Call your doctor if you observe: Fever of 101 or Higher Suture Line Care: Avoid Pulling/Pushing and Avoid Pinching/Bending Cleanse incision/area with: Soap & Water Follow Up Care Please Follow Up With: Rufina Godinez MD When: April 17 at 2:30 pm. Contact our office at [phone], option #4 for a nurse Test Results: Test results from this visit will be discussed in further detail at your follow- up appointment, if applicable. Discharge Plan Admission Primary Reason for Your Visit: S/p left breast mastectomy with sentinel lymph biopsy and skin sparing Attending Provider: Rufina Godinez Primary Care Provider: Aria Sanchez Consulting Providers: Giacomo Philip Instructions Additional Instructions / Restrictions: Breast tissue mechanical estimator placement Instructions for My Care at Home or Healthcare Facility The following instructions will help you know what to expect in the days following surgery. These are general instructions. Your surgeon and therapist may give you special instructions, which vary tosome degree based on your specific procedure -- follow those as directed. Do not, however, hesitateto call if you have any questions or concerns. Splint Care/Dressing Care/Wound Care * Dressings - You may have a dressing over the operative site. * If the dressing feels too tight after you get home, it is ok to gently pull on the dressing to stretch it out/loosen it. * Do not put pressure over the breast incision site. Wear a loose bra with pa dding, no rubbing on the incision * Avoid smoking or other tobacco products. Smoking tobacco impairs wound healing and increases the risks of post-operative complications. * Tape over your incisions (if present) will fall off on its own ? Activities * For the first 4 weeks after surgery, try to balance your activity, allowing time for rest. * Avoid lifting, pushing, or pulling anything over 5 pounds. * Do not drive or operate heavy machinery within 24 hrs of surgery or while taking narcotic pain medication.? Pain Control/Medications * If you received an anesthetic block, your hand or arm may be numb for several hours. You will be discharged to home with medications, including an oral pain medication (analgesic). Rest and elevation are still one of the most important factors for pain control. Take your pain medication as needed, but do not wait for the pain to become out of control. * For severe pain, you may take prescription pain medication as directed, but please note that thismay also contain Tylenol (e.g. Percocet). Do not take more than 4000mg of Tylenol (acetaminophen) from all sources daily.? * Pain medication may cause some lethargy, nausea, and or constipation. You should not drive/operate dangerous machinery while taking these medications. If these or other symptoms become significantly problematic, please your surgeon's office. * If prescribed oral antibiotics (Keflex, Clindamycin, or others), please take prescription for full duration as instructed. You should not have any pills remaining once completed (refills are written for your convenience should the course need to be extended, but generally they are not required). Diet (what I can eat): Resume normal diet Follow up * You will be seen (most likely) 1 to 2 weeks after surgery depending on the procedure. Follow-up appointment reminders:? (A list of any scheduled appointments is at the end of this document)? At your earliest convenience, please call [phone] to confirm/schedule a follow-up appointment with me in clinic. When to call your surgeon: * If any signs of surgical site infection develop: redness, pus, pain, increased swelling or foul odor at the incision site, fever, cold and clammy skin, or confusion. * Consistent temperature above 101?F (38.3?C). * The affected area gets swollen or much more painful. * You have excessive bleeding from surgical site (soaking through). If you experience difficulty breathing and/or shortness of breath, seek immediate medical attention. If experiencing any of the above complications or if you have any questions, call [phone] Drain Care:? A drain has been placed during surgery in order to prevent the accumulation of fluids beneath your skin. The drain decreases the chance of infection and helps in the healing process. The nursing staff will instruct you and your family on the care and recording of drainage. ? * You may shower with them. Let soap and water run down over drains, rinse and pat dry with clean towel. Reinforce with gauze or ABD pad around drain site if leaking occurs around the drain; this is not unusual.?Hold drains in your hand or attach to lanyard (or string) around your neck with safety pin so they do not hang from your body (the tension on your skin may cause them to be pulled out) while your are showering. * The drains are attached to you with suture. If your drain(s) falls out accidentally, place a clean piece of gauze over the drain site with tape and discard your drain.? * If your drain bulb loses suction or your drain has migrated out from the drain site, do not attempt to push the drain back into your skin. Cover the area with dry gauze. You may be asked by your surgeon to place a piece of semi occlusive dressing (tegaderm) over the drain site to keep the site clean and drain in place until you are seen in the office.? * When you are wearing clothes, attach drains to your clothes in a place where there is minimal/no tension on the insertion site to your skin.? * You should empty the drainage and record the output at least 2 times per day, or when the drainage fills the bulb almost intermediate. Please keep daily amounts of drainage separate for each drain for i21-dckc period (for example drain #1 put out 40 mL for 24 hours).? * Strip your drains daily as shown to you by your nurse prior to discharge to avoid them from becoming clogged:? * Wash your hands. * Strip tubing three times a day (more often if there are a lot of blood clots). * Grasp tubing close to body with one hand and pull toward body. With other hand grasp tubing belowthe first hand. Using an alcohol swab, pinch tubing tightly, sliding fingers down tubing, away frombody. * Repeat 2 or 3 times. Be sure drainage is flowing into bulbs. * Measure the drainage in the bulb by either using the calibrations on the bulb or by emptying the Bulb into small measuring container 3 times a day (more often if there is a lot of drainage or they feel heavy) Open small lid on top of bulb. Pour drainage into container. Squeeze bulb and hold whilereplacing small lid. Bulb should be collapsed to be effective. Pin bulb to clothing so the weight wi ll not pull on the insertion site. * Measure drainage and record amount each time you empty the bulbs. Hold container at eye level to read the numbers on the side of the container. Read the numbers in the ml column. Record amount of drainage on chart. * Record your drain output daily and bring this record with you to your next follow up appointment.Drains will typically be removed in the clinic when output is less than 30 mL/24 hours per drain over 2 consecutive days. For drain removal appointment, please call your doctors office directly to schedule.? Location: Drain #1 Drain #2 Drain #3 Drain #4 AM Noon PM AM Noon PM AM Noon PM AM Noon PM Date: Total (daily) AM Noon PM AM Noon PM AM Noon PM AM Noon PM Date: Total (daily) AM Noon PM AM Noon PM AM Noon PM AM Noon PM Date: Total (daily) AM Noon PM AM Noon PM AM Noon PM AM Noon PM Date: Total (daily) AM Noon PM AM Noon PM AM Noon PM AM Noon PM Date: Total (daily) 0 AM Noon PM AM Noon PM AM Noon PM AM Noon PM Date: Total (daily) AM Noon PM AM Noon PM AM Noon PM AM Noon PM Date: Total (daily) AM Noon PM AM Noon PM AM Noon PM AM Noon PM Date: Total (daily) AM Noon PM AM Noon PM AM Noon PM AM Noon PM Date: Total (daily) AM Noon PM AM Noon PM AM Noon PM AM Noon PM Date: Total (daily) AM Noon PM AM Noon PM AM Noon PM AM Noon PM Date: Total (daily) AM Noon PM AM Noon PM AM Noon PM AM Noon PM Date: Total (daily) AM Noon PM AM Noon PM AM Noon PM AM Noon PM Date: Total (daily) AM Noon PM AM Noon PM AM Noon PM AM Noon PM Date: Total (daily) AM Noon PM AM Noon PM AM Noon PM AM Noon PM Date: Total (daily) Discharge Orders/Prescriptions Prescriptions: New cephalexin 500 mg capsule 500 mg PO Q8H 14 Days Qty: 42 0RF acetaminophen 325 mg Tablet 650 mg PO Q6H PRN PRN (Reason: Pain Score 1-10) Qty: 0 0RF oxycodone 5 mg Tablet 5 mg PO Q6H PRN PRN (Reason: Pain Score 1-10) 3 Days Qty: 10 0RF docusate sodium [Colace] 100 mg capsule 100 mg PO BID Qty: 10 0RF Continued benzonatate 200 mg capsule 200 mg PO TID PRN (Reason: cough) Qty: 20 0RF Pepcid Complete 10-800-165 mg tablet,chewable 1 tab PO DAILY PRN (Reason: indigestion) metoprolol succinate [Toprol XL] 25 mg tablet extended release 24 hr 25 mg PO DAILY Qty: 90 3RF atorvastatin 40 mg tablet 40 mg PO QHS Qty: 90 3RF melatonin 10 mg capsule 20 mg PO HS PRN (Reason: insomnia) offlqrxf-cme-nmxo-FA-vit K-lut 1 EACH tablet 1 ea PO DAILY levothyroxine 75 mcg tablet 75 mcg PO DAILY Other Ambulatory Orders: 12 Lead EKG (Routine) Timeframe: 20250402 Location: None Selected Ordered By: Dr. Rufina Godinez Referrals / Follow Up: Aria Sanchez MD [Primary Care Provider] - Rufina Godinez MD [Med Staff - Active Staff] - 04/17/25 2:30 pm Disposition Disposition (needs filled in before D/C Order can be placed): Home, Self Care 04/11/25 0723Yajaira COOK PA-C CC: Dr. Aria Sanchez MD; Dr. Giacomo Philip MD ~ Signed ADDENDUM by BERTIN Landrum on 04/11/[address] Godinez's appointment changed to follow-up in 2 weeks on April 24 at 1:30 pm. Please contact our office to reschedule if you are unable to attend this appointment or need to change the date. Our office number is [phone], option #2 to schedule/change an appointment or option #4 to speak to a nurse. 04/11/25 0746Yajaira Landrum PA-C cc: Dr. Aria Sanchez MD; Dr. Giacomo Philip MD ~* Signed ADDENDUM by BERTIN Landrum on 04/11/25 at 1455 Patient qualifies for home oxygen. She completed walking and resting home oxygenqualification and was unable to maintain an oxygen level of 90% or above on roomair. Patient was 93% on 2 liters of oxygen at rest. She was 94% on 4 liters of oxygen with ambulation. Patient will be discharged on home oxygen. Appropriate documentation and testing have been completed. Patient will need to follow-up with her PCP within 1 week to be evaluated prior to discontinuation of her oxygen. 04/11/25 1455Yajaira Landrum PA-C cc: Dr. Aria Sanchez MD; Dr. Giacomo Philip MD ~* Signed [facility]07-17-2025 Progress note [facility] Medical Records Department [address] [place] [address] Progress Note - Surgery 04/11/25 0642 MR#: [id number] Acct: [id number] Name: BERRY ABAD Rep #:[id number] : 1945 79 From: Yajaira COOK PA-C PCP: Dr. Aria Sanchez MD Status:[facility] [place] [facility] [id number] Subjective Subjective Patient evaluated resting comfortably in bed. She denies any nausea, vomiting. She notes minimal amount of incisional discomfort. She denies wearing oxygen at home. She notes this happened previouslyfollowing another surgery. Objective Data Objective Data Vital Signs: Vital Signs Temp Pulse Resp BP Pulse Ox O2 Del Method O2 Flow Rate 98.2 F 95 18 142/90 H 97 Nasal Cannula 3 04/11/25 05:19 04/11/25 05:19 04/11/25 05:19 04/11/25 05:19 04/11/25 06:07 04/11/25 06:07 04/11/25 06:07 Oxygen Flow Rate (L/min) 3 Oxygen Delivery Method Nasal Cannula Weight: 151 lb 14.368 oz Body Mass Index (BMI) 26.0 Intake & Output: Intake and Output for Last 24 Hours 04/09/25 04/10/25 04/11/25 23:59 23:59 23:59 Intake Total 365.5 / 365.5 910.67 / 910.67 Output Total 200 / 200 40 / 40 Balance 165.5 / 165.5 870.67 / 870.67 Lab / Micro Data 04/11/25 05:40 Labs: Laboratory Results - last 24 hr 04/11/25 05:40: WBC 7.4, RBC 3.80 L, Hgb 12.4, Hct 37.8, MCV 99.5 H, MCH 32.6 H,MCHC 32.8, RDW Std Deviation 46.8 H, RDW Coeff of Toyin 13.0, Plt Count 199, MPV 9.5, Immature Gran % (Auto) 0.300, Neut % (Auto) 73.3 H, Lymph % (Auto) 18.0 L, Ware % (Auto) 7.3, Eos % (Auto) 0.8, Baso % (Auto) 0.3, Absolute Neuts (auto) 5.4, Absolute Lymphs (auto) 1.33, Nucleated RBC % 0 Radiography Diagnostic Testing: Radiology Impression [place] Node 04/10/25 08:05 IMPRESSION: Successful injection of 555 uCi of Tilmanocept injected subdermally for sentinelnode imaging. Reading Location: [place] [address] Physical Exam Chest Chest Narrative: Left chest- incision c/d/i. No erythema or infection noted. FADIA drains intact. Post-operative bra inplace. Assessment & Plan Assessment/Plan (1) Invasive lobular carcinoma of breast in female: PLAN: I am following this patient in conjunction with Dr. Godinez. She will independently evaluatethis patient. Discussed home-going instructions with the patient No lifting greater than 5 pounds Nursing will demonstrate drain care prior to discharge Continue to wean patient off of oxygen Ordered oxycodone to try inpatient. Will plan to send home on a small prescription if tolerate. Patient will follow-up with Dr. Godinez next Tuesday at 2:30pm Plan for discharge later today Charges/Coding Visit Charges Inpatient E&M: 01406 Subs Hosp L1 (post-op; no charge) 04/11/25 0717 Cosigner Signature (if applicable): CC: ~ Signed ADDENDUM by BERTIN Landrum on 04/11/25 at 1454 Addendum Patient qualifies for home oxygen. She completed walking and resting home oxygenqualification and was unable to maintain an oxygen level of 90% or above on roomair. Patient was 93% on 2 liters of oxygen at rest. She was 94% on 4 liters of oxygen with ambulation. Patient will be discharged on home oxygen. Appropriate documentation and testing have been completed. Patient will need to follow-up with her PCP within 1 week to be evaluated prior to discontinuation of her oxygen. 04/11/25 1454 Cosigner Signature (if applicable): cc: ~* Signed [facility]07-17-2025 Progress note Author Giacomo Philip [facility] Note Date/Time April 11, 2025 6:50 am [facility] Medical Records Department [address] [place] [address] Progress Note - Surgery 04/11/25 0647 MR#: [id number] Acct: [id number] Name: BERRY ABAD JOVANA Rep #:[id number] : 1945 79 From: Giacomo Philip MD PCP: Dr. Aria Sanchez MD Status:ADM GORDY Location: [place] [address] Subjective Subjective Pain controlled. Desaturation overnight while sleeping but able to do 1500 with IS this morning on rounds. Objective Data Objective Data Vital Signs: Vital Signs Temp Pulse Resp BP Pulse Ox O2 Del Method O2 Flow Rate 98.2 F 95 18 142/90 H 97 Nasal Cannula 3 04/11/25 05:19 04/11/25 05:19 04/11/25 05:19 04/11/25 05:19 04/11/25 06:07 04/11/25 06:07 04/11/25 06:07 Oxygen Flow Rate (L/min) 3 Oxygen Delivery Method Nasal Cannula Weight: 151 lb 14.368 oz Body Mass Index (BMI) 26.0 Intake & Output: Intake and Output for Last 24 Hours 04/09/25 04/10/25 04/11/25 23:59 23:59 23:59 Intake Total 365.5 / 365.5 1210.67 / 1210.67 Output Total 200 / 200 40 / 40 Balance 165.5 / 165.5 1170.67 / 1170.67 Lab / Micro Data 04/11/25 05:40 Labs: Laboratory Results - last 24 hr 04/11/25 05:40: WBC 7.4, RBC 3.80 L, Hgb 12.4, Hct 37.8, MCV 99.5 H, MCH 32.6 H,MCHC 32.8, RDW Std Deviation 46.8 H, RDW Coeff of Toyin 13.0, Plt Count 199, MPV 9.5, Immature Gran % (Auto) 0.300, Neut % (Auto) 73.3 H, Lymph % (Auto) 18.0 L, Ware % (Auto) 7.3, Eos % (Auto) 0.8, Baso % (Auto) 0.3, Absolute Neuts (auto) 5.4, Absolute Lymphs (auto) 1.33, Nucleated RBC % 0 Radiography Diagnostic Testing: Radiology Impression Hayward Node 04/10/25 08:05 IMPRESSION: Successful injection of 555 uCi of Tilmanocept injected subdermally for sentinelnode imaging. Reading Location: [facility] Physical Exam Narrative CHEST: LEFT: No bleeding, mastectomy flaps healthy/viable. Drains SS. No hematoma. Const alert and oriented x3 General Appearance: cooperative Resp normal respiratory effort Resp Narrative: 1500 on IS Extremity normal to inspection Extremity Narrative: SCDs on and activated Assessment & Plan Assessment/Plan (1) Invasive lobular carcinoma of breast in female: PLAN: Expected course Drain care teaching before discharge (discussed with nursing) F/u with me on , 18 April 2025 Antibiotics while drains in place (I ordered 2 weeks of Keflex) Charges/Coding Procedures Integumentary 111xxx-113xx: 72318 Global Visit 04/11/25 0650 <Electronically signed by Giacomo Philip MD> Cosigner Signature (if applicable): CC: ~ Signed [facility] Work Phone: 1(347) 893-831607-17-2025 Progress note [facility] Medical Records Department [address] [place] [address] Progress Note - Surgery 04/11/25 0647 MR#: [id number] Acct: [id number] Name: ABADBERRY JOVANA Rep #:[id number] : 1945 79 From: Giacomo Philip MD PCP: Dr. Aria Sanchez MD Status:ADM GORDY Location: [place]3 [id number] Subjective Subjective Pain controlled. Desaturation overnight while sleeping but able to do 1500 with IS this morning on rounds. Objective Data Objective Data Vital Signs: Vital Signs Temp Pulse Resp BP Pulse Ox O2 Del Method O2 Flow Rate 98.2 F 95 18 142/90 H 97 Nasal Cannula 3 04/11/25 05:19 04/11/25 05:19 04/11/25 05:19 04/11/25 05:19 04/11/25 06:07 04/11/25 06:07 04/11/25 06:07 Oxygen Flow Rate (L/min) 3 Oxygen Delivery Method Nasal Cannula Weight: 151 lb 14.368 oz Body Mass Index (BMI) 26.0 Intake & Output: Intake and Output for Last 24 Hours 04/09/25 04/10/25 04/11/25 23:59 23:59 23:59 Intake Total 365.5 / 365.5 1210.67 / 1210.67 Output Total 200 / 200 40 / 40 Balance 165.5 / 165.5 1170.67 / 1170.67 Lab / Micro Data 04/11/25 05:40 Labs: Laboratory Results - last 24 hr 04/11/25 05:40: WBC 7.4, RBC 3.80 L, Hgb 12.4, Hct 37.8, MCV 99.5 H, MCH 32.6 H,MCHC 32.8, RDW Std Deviation 46.8 H, RDW Coeff of Toyin 13.0, Plt Count 199, MPV 9.5, Immature Gran % (Auto) 0.300, Neut % (Auto) 73.3 H, Lymph % (Auto) 18.0 L, Ware % (Auto) 7.3, Eos % (Auto) 0.8, Baso % (Auto) 0.3, Absolute Neuts (auto) 5.4, Absolute Lymphs (auto) 1.33, Nucleated RBC % 0 Radiography Diagnostic Testing: Radiology Impression Hayward Node 04/10/25 08:05 IMPRESSION: Successful injection of 555 uCi of Tilmanocept injected subdermally for sentinelnode imaging. Reading Location: [place] [address] Physical Exam Narrative CHEST: LEFT: No bleeding, mastectomy flaps healthy/viable. Drains SS. No hematoma. Const alert and oriented x3 General Appearance: cooperative Resp normal respiratory effort Resp Narrative: 1500 on IS Extremity normal to inspection Extremity Narrative: SCDs on and activated Assessment & Plan Assessment/Plan (1) Invasive lobular carcinoma of breast in female: PLAN: Expected course Drain care teaching before discharge (discussed with nursing) F/u with me on , 18 April 2025 Antibiotics while drains in place (I ordered 2 weeks of Keflex) Charges/Coding Procedures Integumentary 111xxx-113xx: 29003 Global Visit 04/11/25 0650 Cosigner Signature (if applicable): CC: ~ Signed [facility]07-16-2025 Consult note Author Rafita Rios [facility] Note Date/Time April 10, 2025 4:04 pm [facility] Medical Records Department [address] [place] [address] Anesthesia Postop Eval II 04/10/25 1604 MR#: [id number] Acct: [id number] Name: BERRY ABAD JOVANA Rep #:[id number] : 1945 79 From: Rafita Rios MD PCP: Dr. Aria Sanchez MD Status:ADM GORDY Y Race: C [place] [facility] [place] Anesthesia Postop Eval I Sum Postop Eval Completion status Anesthesia document: Postop Eval 1 completed: Yes Anesthesia Postop Eval I Summary Anesthesia Postop Eval I Summary: Anesthesia Postop Eval I: Assessment Summary Airway patent Yes 04/10/25 13:59 DIRECTOR OF BUSINESS SYSTEMS.JDEF Spontaneous unlabored Yes 04/10/25 13:59 DIRECTOR OF BUSINESS SYSTEMS.JDEF respirations Mental status Awake,Calm 04/10/25 13:59 DIRECTOR OF BUSINESS SYSTEMS.JDEF nausea No 04/10/25 13:59 DIRECTOR OF BUSINESS SYSTEMS.JDEF Vomiting No 04/10/25 13:59 DIRECTOR OF BUSINESS SYSTEMS.JDEF Anesthesia Postop Eval I: Fluid Summary Crystalloid volume administer 1,200 04/10/25 13:59 DIRECTOR OF BUSINESS SYSTEMS.JDEF (ml) Colloids volume administered ( ml) Blood Product volume administered (ml) Total IV fluid infused 1,200 04/10/25 13:59 DIRECTOR OF BUSINESS SYSTEMS.JDEF Anesthesia Postop Eval I: Summary Notes Anesthesia Complication No 04/10/25 13:59 DIRECTOR OF BUSINESS SYSTEMS.JDEF Anesthesia Complication Comment: Post-operative progress note Anesthesia: Postop Eval II Evaluation Mental status: Awake and Calm Pain Level: 3 nausea: No Vomiting: No Complications Anesthesia Complication: No 04/10/25 1604 <Electronically signed by Rafita Orourke D> Date _ Rafita Rios MD Cosigner Signature: Date CC: ~ Signed [facility] Work Phone: 1(868) 584-443107-16-2025 Procedure note [facility] Medical Records Department [address] [place] [address] Operative Report 04/10/25 1627 MR#: [id number] Acct: [id number] Name: BERRY ABAD JOVANA Rep #:[id number] : 1945 79 From: Giacomo Philip MD PCP: Dr. Aria Sanchez MD Status:ADM GORDY Location: [place] [address] Operative Report (Standard) Operative Information Date of Procedure: 04/10/25 Pre-Operative Diagnosis: Left breast cancer Post-Operative Diagnosis: Same Surgery/Procedure Performed: 1) Intraoperative assessment of mastectomy flaps with SPY (CPT: 14668) 2) Prepectoral placement of left breast tissue mechanical estimator with acellular dermal matrix (CPT: 79739) 3) Use of acellular dermal matrix (Flex HD) to reinforce/stabilize tissue mechanical estimator in the breast pocket (CPT: 65407) post manager: Yes [employer] Tool Operator: Damion Soler Tasks completed by speech pathologist assistant: Retracting Type of Anesthesia: General RN Documented Start/Stop Times: Operation Date: 04/10/25 09:00 Case Time Into Pre-Op 04/10/25 07:02 Out of Pre-Op 04/10/25 09:55 Anesthesia Start 04/10/25 09:56 Into Room 04/10/25 09:56 Procedure Start 04/10/25 10:29 Procedure End 04/10/25 13:36 Anesthesia End 04/10/25 13:48 Out of Room 04/10/25 13:48 Into Recovery 04/10/25 13:50 Out of Recovery 04/10/25 16:05 Procedure Start Time: 01:00 Procedure Stop Time: 13:36 Select all DRAINS/GRAFTS/IMPLANTS that apply: Drains (2 drains) Drain details: one 19 Malian and one 15 Malian Miguel A drain tunneled out medially and laterally , Tissue (Acellular dermal matrix) Tissue details: Flex HD pliable PRE-L-21 x 24 cm, expiration 01/01/2028, serial #[id number], products code [id number] and Implanted device (Tissue mechanical estimator) Implanted device details: [place] CPX 4+ smooth medium height, 13.5 cm base width, 550 cc (inflated with 150 cc of air). Lot [id number], serial #[id number], expirationdate June. Estimated Blood Loss: 20 cc Specimen collected: No Description of surgery: Indications: Patient is a delightful 79-year-old female with left breast cancer here for skinsparing mastectomy.Discussed risks, benefits, and alternatives, to reconstruction and she elected to proceed with reconstruction using ADM and tissue mechanical estimator. Procedure details: Patient was correctly identified in preoperative holding and I marked the IMF and the breast mound.She was taken back to the operating room where the mastectomy portion of the procedure was performed by Dr. Godinez. Please see her separate dictation for her portion of the case. The notes were apparently clinically negative (sentinel nodes), and there was no plan for axillary dissection. Plasticsurgery was called in the room. The breast cavity was irrigated with Irrisept and the chest wall was reprepped and draped with new drapes. A timeout was performed. Hemostasis was obtained with Bovie e lectrocautery and the left breast pocket. We then injected 3 cc of indocyaninegreen and the flaps were assessed with fluorescence angiography using the SPY machine. There was a small area on the inferior flap immediately adjacent to the mastectomy incision that measured approximately 1 x 4 cm which was excised full-thickness with a curved Gross scissor as there was concern that this area had poor perfusion. Otherwise the rest of the mastectomy flaps had excellent perfusion and were of adequate thickness. Attention was then turned to reconstruction with a tissue mechanical estimator. The tissue mechanical estimator was wrappedwith the above-noted ADM circumferentially (edges of the ADM were sutured together with 3-0 Vicryl suture) and washed with Irrisept. The breast cavity was then irrigated again and washed with Irrisept. With new gloves the tissue mechanical estimator and ADM were placed in the left breast pocket in the prepectoral plane. The medial 9:00 and inferior 6:00 suture tabs were then sutured to the chest wall with 2-0 PDS. We are happy with the placement at thispoint. The tissue mechanical estimator was further reinforced withsuturing the ADM medially to the chest with interrupted PDS sutures in a 12:00 suture with an interrupted PDS suture to stabilize the tissue mechanical estimator and ADM in place. Two drains were then placed, one 15 Malian drain medially and one 19 Malian drain laterally. 3-0 Vicryl deep sutures were then placed to approximate the softtissues over the implant followed by 3-0 Monocryl deep dermal sutures and 3- 0 Monocryl running subcuticular sutures. Prineo tape was applied. The drains were holding suction at the end of the case. Patient tolerated the procedure well. Countswere correct at the end of the case. She was awakened and taken to the PACU in stable condition. Surgical Findings: Healthy mastectomy flaps except for very small portion (1 x 4 cm) of the inferior mastectomy flap immediately adjacent to the incision site which was excised full-thickness. Complications Complications: No Admit VTE Documentation VTE Mechan Device Prophylaxis: SCD's 04/10/256 Cosigner Signature (if applicable): CC: Dr. Aria Sanchez MD; Dr. Giacomo Philip MD; Dr. Rufina Godinez MD~ Signed [facility]07-16-2025 Consult note [facility] Medical Records Department [address] [place] [address] Anesthesia Postop Eval II 04/10/25 1604 MR#: [id number] Acct: [id number] Name: BERRY ABAD JOVANA Rep #:[id number] : 1945 79 From: Rafita Rios MD PCP: Dr. Aria Sanchez MD Status:ADM GORDY Y Race: C Location: [place] MS[facility] -1 Anesthesia Postop Eval I Sum Postop Eval Completion status Anesthesia document: Postop Eval 1 completed: Yes Anesthesia Postop Eval I Summary Anesthesia Postop Eval I Summary: Anesthesia Postop Eval I: Assessment Summary Airway patent Yes 04/10/25 13:59 DIRECTOR OF BUSINESS SYSTEMS.JDEF Spontaneous unlabored Yes 04/10/25 13:59 DIRECTOR OF BUSINESS SYSTEMS.JDEF respirations Mental status Awake,Calm 04/10/25 13:59 DIRECTOR OF BUSINESS SYSTEMS.JDEF nausea No 04/10/25 13:59 DIRECTOR OF BUSINESS SYSTEMS.JDEF Vomiting No 04/10/25 13:59 DIRECTOR OF BUSINESS SYSTEMS.JDEF Anesthesia Postop Eval I: Fluid Summary Crystalloid volume administer 1,200 04/10/25 13:59 DIRECTOR OF BUSINESS SYSTEMS.JDEF (ml) Colloids volume administered ( ml) Blood Product volume administered (ml) Total IV fluid infused 1,200 04/10/25 13:59 DIRECTOR OF BUSINESS SYSTEMS.JDEF Anesthesia Postop Eval I: Summary Notes Anesthesia Complication No 04/10/25 13:59 DIRECTOR OF BUSINESS SYSTEMS.JDEF Anesthesia Complication Comment: Post-operative progress note Anesthesia: Postop Eval II Evaluation Mental status: Awake and Calm Pain Level: 3 nausea: No Vomiting: No Complications Anesthesia Complication: No 04/10/25 1604 D> Date _ Rafita Rios MD Cosigner Signature: Date CC: ~ Signed [facility]07-16-2025 Consult note Author Aranza Cabrera [facility] Note Date/Time April 10, 2025 1:59 pm [facility] Medical Records Department [address] [place] [address] Anesthesia Postop Eval I 04/10/25 1358 MR#: [id number] Acct: [id number] Name: BERRY ABAD Rep #:[id number] : 1945 79 From: Aranza Cabrera CRNA PCP: Dr. Aria Sanchez MD Status:ADM GORDY Y Race: C Location: [place] [address] - Anesthesia: Postop Eval I Current Vital Signs Temperature: 97.6 F Pulse Rate: 69 Blood Pressure: 163/90 Respiratory Rate: 16 Pulse Ox: 96 Oxygen Delivery Method: Nasal Cannula Oxygen Flow Rate (L/min): 4 Assessment Airway patent: Yes Spontaneous unlabored respirations: Yes Mental status: Awake and Calm nausea: No Vomiting: No Anesthesia Complication: No Fluid Hydration Crystalloid volume administer (ml): 1,200 Total IV fluid infused: 1,200 Progress Note Anesthesia document: Postop Eval 1 completed: Yes 04/10/25 1359 <Electronically signed by Aranza weinstein CRNA> Date _ Aranza Cabrera DIRECTOR OF BUSINESS SYSTEMS Cosigner Signature: Date CC: ~ Signed [facility] Work Phone: 1(758) 626-120207-16-2025 Procedure note [facility] Medical Records Department [address] [place] [address] Operative Report 04/10/25 1142 MR#: [id number] Acct: [id number] Name: BERRY ABAD JOVANA Rep #:[id number] : 1945 79 From: Rufina Godinez MD PCP: Dr. Aria Sanchez MD Status:ADM GORDY Location: [address] Oncology: Sorin Requirements . Oncology surgical intervention performed: Hayward Node Biopsy for Breast Cancerperformed Hayward Node Bx - Breast Cancer: Synoptic Portion: Element Response Options Operation performed with curative intent. Yes Tracer(s) used to identify sentinel nodes in the upfront surgery (non- neoadjuvant) setting (select all that apply). Dye; Radioactive tracer Tracer(s) used to identify sentinel nodes in the neoadjuvant setting (select allthat apply).N/A All nodes (colored or non-colored) present at the end of a dye-filled lymphatic channel were removed. Yes All significantly radioactive nodes were removed. Yes All palpably suspicious nodes were removed. N/A Biopsy-proven positive nodes marked with clips prior to chemotherapy were identified and removed. N/A. Operative Report (Standard) Operative Information Date of Procedure: 04/10/25 Pre-Operative Diagnosis: Invasive lobular carcinoma left breast Post-Operative Diagnosis: Same Surgery/Procedure Performed: Left skin sparing mastectomy, sentinel lymph node biopsy Lymphoseek and methylene blue post manager: Yes [employer] Tool Operator: Damion Soler Tasks completed by speech pathologist assistant: Opening & closing and Retracting Type of Anesthesia: General/Supplemental RN Documented Start/Stop Times: Operation Date: 04/10/25 09:00 Case Time Into Pre-Op 04/10/25 07:02 Out of Pre-Op 04/10/25 09:55 Anesthesia Start 04/10/25 09:56 Into Room 04/10/25 09:56 Procedure Start 04/10/25 10:29 Procedure End 04/10/25 13:36 Anesthesia End 04/10/25 13:48 Out of Room 04/10/25 13:48 Into Recovery 04/10/25 13:50 Procedure Start Time: 10:29 Procedure Stop Time: 11:50 (My portion of the surgery) Select all DRAINS/GRAFTS/IMPLANTS that apply: Drains Drain details: Please see Dr. Philip's operative report Special Medications: Ancef 2 g IV x 1 Estimated Blood Loss: 10 cc Specimen collected: Yes Description of specimen(s) removed: Left axillary sentinel nodes, left mastectomy Description of surgery: In AC the breast tissue was injected with Lymphoseek. 30 minutes later the patient was taken to theoperating room and general anesthesia was induced. 6 cc of methylene blue blue dye was injected in the 4 quadrants periareolar along with 10 cc of normal saline. This was massaged gently for 5 minutes. Theleft breast and axilla were prepped and draped in usual sterile fashion. A timeout was completed verifying correct patient, procedure, site, positioning, special equipment prior to beginning procedure. Handheld gamma probe was used to identify the location of the hottest spot in the axilla. Prior to the incision, the counts were 25. The incision was made and the hot and blue nodes were identified. The probe was placed in contact with the node in the 10 count was 1604 and 1838. The bed of the nodemeasured 20 counts. No additional blue or hot nodes were detected. Frozen stated there were some aty pical cells present but unable to tell more on frozen. Skin sparing incision was made that encompassed the nipple areolar complex transversely across the breast. Flaps are raised in the avascular plane betweenthe flap and the breast tissue from the clavicle superiorly, the sternum medially, the anterior rectus sheath inferiorly, and posterolateral border of the pectoralis major muscle laterally. Hemostasis was achieved in the flaps. Next, the breast tissue and underlying pectoralis fascia were excised from the pectoralis major muscle, progressing from medial to laterally. At the lateral border of the pectoralis major muscle, the breast tissue wasswung laterally andthe lateral pedicle identified with the breast tissue gave way to the fat of theaxilla. The lateral pedicle was incised and the specimen removed and oriented for pathology. The wound was irrigated and hemostasis was achieved. The axillary incision was closed with interrupted 3-0 Vicryl to the simultaneously followed by a subcuticular layer of 4-0 Monocryl and Dermabond. Please see Dr. Philip's operative report for the reminder of the procedure. Surgical Findings: Hayward lymph node frozen showed some atypical cells unable to delineate further on frozen Complications Complications: No 04/10/25 1428 Cosigner Signature (if applicable): CC: Dr. Aria Sanchez MD; Dr. Giacomo Philip MD; Dr. Rufina Godinez MD~ Signed [facility]07-16-2025 Consult note [facility] Medical Records Department [address] [place] [address] Anesthesia Postop Eval I 04/10/25 1358 MR#: [id number] Acct: [id number] Name: BERRY ABAD JOVANA Rep #:[id number] : 1945 79 From: Aranza Cabrera DIRECTOR OF BUSINESS SYSTEMS PCP: Dr. Aria Sanchez MD Status:ADM GORDY Y Race: C Location: [place] [address] Anesthesia: Postop Eval I Current Vital Signs Temperature: 97.6 F Pulse Rate: 69 Blood Pressure: 163/90 Respiratory Rate: 16 Pulse Ox: 96 Oxygen Delivery Method: Nasal Cannula Oxygen Flow Rate (L/min): 4 Assessment Airway patent: Yes Spontaneous unlabored respirations: Yes Mental status: Awake and Calm nausea: No Vomiting: No Anesthesia Complication: No Fluid Hydration Crystalloid volume administer (ml): 1,200 Total IV fluid infused: 1,200 Progress Note Anesthesia document: Postop Eval 1 completed: Yes 04/10/[address] DIRECTOR OF BUSINESS SYSTEMS> Date _ Aranza DeForeest DIRECTOR OF BUSINESS SYSTEMS Cosigner Signature: Date CC: ~ Signed [facility]07-16-2025 Consult note Author Rafita Rios [facility] Note Date/Time April 10, 2025 8:51 am [facility] Medical Records Department [address] [place] [address] Pre-Anesthesia Evaluation 04/10/25 0847 MR#: [id number] Acct: [id number] Name: BERRY ABAD JOVANA Rep #:[id number] : 1945 79 From: Rafita Rios MD PCP: Dr. Aria Sanchez MD Status:[facility] Y Race: C Location: [place] [address] ASA Classification* ASA Classification ASA Classification: 2 Assessment & Plan Anesthesia* Anesthesia Assessment Anesthesia Assessment: Discussed sedation and/or anesthesia options, risks, benefits, and alternatives with patient/parents/legal guardian/POA. Questions invited. The patient/parents/legal guardian/POA seems to understand and agrees to proceedwith anesthesia plan. Reviewed the physical assessment, medical history, allergy history and patient home medications list prior to surgery/procedure/anesthetic and documented any changes. Performed airway and anesthesia risk assessments. Anesthesia Type Anesthesia Type: General (discussed GA with ETT. Discussed possibility of injuryto teeth, gums, lips, PONV, IA, CVA, post-op ventilation.) History Source History Obtained from:: Patient and Chart Anesthesia Focused Assessment* Temperature: 98 F Pulse Rate: 55 Blood Pressure: 135/57 Respiratory Rate: 16 Pulse Ox: 97 Oxygen Delivery Method: Room Air Airway Assessment Mouth opens: >3 cm Mallampati Score: II Teeth Condition: Intact Labs Anesthesia Preop lab: CBC WBC 5.4 K/mm3 (4.4-11.0) 08/06/24 08:35 08/06/24 RBC 4.47 M/mm3 (4.2-5.4) 08/06/24 08:35 08/06/24 Hgb 14.0 g/dL (12.0-15.0) 08/06/24 08:35 08/06/24 Hct 44.6 % (37-47) 08/06/24 08:35 08/06/24 Plt Count 243 K/mm3 (150-450) 08/06/24 08:35 08/06/24 CHEMISTRY Potassium 4.2 mmol/L (3.3-5.1) 02/05/25 06:30 02/05/25 Sodium 141 mmol/L (133-145) 02/05/25 06:30 02/05/25 BUN 17 mg/dL (4-19) 02/05/25 06:30 02/05/25 Creatinine 1.06 mg/dL (0.70-1.20) 02/05/25 06:30 02/05/25 Glucose 96 mg/dL (70-99) 02/05/25 06:30 02/05/25 TSH 0.902 uIU/mL (0.300-4.200) 02/05/25 06:30 01/24 12/18 COAG PT 14.2 SECONDS (11.7-14.9) 03/09/24 16:36 Pre-Assessment Diagnosis/Proposed Procedure Planned Operative Procedure(s): (L) Left Mastectomy w/SLN bx, blue dye & radiotracer - COMBO CASE WITH SISKA (L) LEFT BREAST TISSUE PV INSTALLER TECH PLACEMENT SUB MUSCULAR WITH ACELLULAR DERMAL MATRIX. 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 When Was Last Pacemaker Check QUESTION #4 FULL TEXT: You/Your Family Experience fever (hyperthermia) with Anesthesia Any additional information?: Yes Any Problems With Anesthesia: Yes (PONV) Cholinesterase deficiency: No You/your family experience fever (hyperthermia) with anesthesia: No Last Oral Intake Last Oral intake: Last Oral Intake NPO since 04:00 04/10/25 07:33 Meds taken in AM with sips of Yes 04/10/25 07:33 water? Meds patient instructed to see mar 04/10/25 07:33 take am of surgery PONV PONV - collective bargaining specialist: PONV - collective bargaining specialist Female Yes 03/27/25 14:44 HX of Motion Sickness Yes 03/27/25 14:44 HX of N/V After Surgery Yes 03/27/25 14:44 Non-Smoker Yes 03/27/25 14:44 Duration of Surgery greater Yes 03/27/25 14:44 than 60 minutes Number of Risk Factors 5 03/27/25 14:44 PONV Score Severe Risk 03/27/25 14:44 Height & Weight Height & Weight: Anesthesia: Height & Weight Height 5 ft 4 in 04/10/25 07:33 Weight: 66.678 kg 04/10/25 07:33 Body Mass Index (BMI) 25.2 04/10/25 07:33 Respiratory Assessment Respiratory Assessment - collective bargaining specialist: Respiratory Tract Infection Hx - collective bargaining specialist Hx Respiratory Tract Infection No 03/27/25 14:44 STOP Sleep Apnea STOP Sleep Apnea - collective bargaining specialist: STOP Sleep Apnea - collective bargaining specialist Hx Hypertension Yes: CONTROLLED ON MED 03/27/25 14:44 Hx Sleep Apnea No 03/27/25 14:44 CPAP No 03/27/25 14:44 BIPAP Do you snore loudly (louder No 03/27/25 14:44 than talking or can be heard Do you often feel tired/ No 03/27/25 14:44 fatigued/ sleepy during daytime? Has anyone observed you stop No 03/27/25 14:44 breathing during sleep? STOP Results Negative 03/27/25 14:44 QUESTION #5 FULL TEXT : Do you snore loudly (louder than talking or can be heard through closed doors)? Tobacco Use History Tobacco Use History - collective bargaining specialist: Tobacco Use History - collective bargaining specialist Tobacco Use Smoking Status Former smoker 03/27/25 14:44 Hx Tobacco Use No 03/27/25 14:44 Years Smoking Packs Smoked per Day Smoking Cessation Date was No - quit smoking greater 03/27/25 14:44 within the last 15 years than 15 years ago Hx Smoking Cessation Date Hx Smoking Cessation No 03/27/25 14:44 Counseling Hematologic Medial History Hematologic Hx - collective bargaining specialist: Hematologic Medical Hx - funder Hx of Blood Transfusion No 03/27/25 14:44 Hx of Transfusion in last 3 No 03/27/25 14:44 Months Date of Last Transfusion (if within last 3 months) Ever experience any problems No 03/27/25 14:44 with transfusion(s)? Specify any problems Hx of Preganancy in last 3 No 03/27/25 14:44 Months Nurse Filling Out Transfusion VCHRISTIN 03/27/25 14:44 & Questions: Date: 03/27/25 03/27/25 14:44 Time: 14:50 03/27/25 14:44 Patient unable to answer at this time (ie. 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 Hx Now No 03/27/25 14:44 Gestational Age (in weeks): EDC: Hx Hx Para Hx Section SAB No 03/27/25 14:44 Active Medications Active Medications: Current Medications Generic Name Dose Route Start Last Admin Trade Name Freq PRN Reason Stop Dose Admin Cefazolin Sodium 2 gm/ Sodium 110 mls @ 200 mls/hr 04/10/25 09:00 Chloride IV 04/10/25 09:32 INTRAOP ONE Lactated Ringer's 1,000 mls @ 15 mls/hr 04/10/25 07:15 04/10/25 07:43 IV 15 mls/hr .Q48H JOYCELYN Administration PFSH Medical History Wears hearing aid Wears glasses Post-menopausal Cancer Alcohol use Thyroid disease High cholesterol Injury of back Injury of head and neck Syncope Gastric reflux Former smoker History of echocardiogram History of stress test Cardiology follow-up encounter Laceration of left middle finger Status post placement of implantable loop recorder Syncope and collapse Syncope Fall Hematoma of scalp Subdural hemorrhage Non-rheumatic aortic stenosis Chest tightness Right bundle branch block (RBBB) GERD (gastroesophageal reflux disease) Cancer of right breast Hyperlipidemia Arthritis Essential (primary) hypertension Home Medications ?Medication ?Instructions ?Recorded ?Last Taken ?Type ywksaurx-lpvw-kxvr 8 mg-folic 400 1 ea PO DAILY SUPPLE MENT 05/27/16 03/20/24 History mcg-K 50 mcg-lutein 300 mcg tablet benzonatate 200 mg capsule 200 mg PO TID PRN cough #20 caps 03/16/18 04/03/25 Rx atorvastatin 40 mg tablet 40 mg PO QHS CHOLESTEROL #90 tabs 07/12/24 04/09/25 Rx famotidine-Ca carb-mag hydrox 10 1 tab PO DAILY PRN in digestion 07/12/24 04/08/25 History mg-800 mg-165 mg chewable tablet (Pepcid Complete) metoprolol succinate 25 mg 25 mg PO DAILY BP #90 tabs 07/12/24 04/10/25 04:00 Rx tablet,extended release 24 hr (Toprol XL) melatonin 10 mg capsule 20 mg PO HS PRN insomnia 08/20 Unknown History levothyroxine 75 mcg tablet 75 mcg PO DAILY THYROID 04/10/25 History cephalexin 500 mg capsule 500 mg PO Q8H 2 weeks #42 ca ps 04/10/25 Unknown Rx Allergy/AdvReac Type Severity Reaction Status Date / Time bupropion HCl (From Zyban) Allergy Severe Hives Verified 04/10/25 07:26 red dye Allergy Mild Itching Verified 04/10/25 07:26 bupropion (From Zyban) Allergy Hives Verified 04/10/25 07:26 hydrocodone (From Vicodin) AdvReac N/V Verified 04/10/25 07:26 hydromorphone AdvReac constipatio Verified 04/10/25 07:26 n Family History Brother , age 49 Cancer lung Surgical History Hx of neck surgery History of breast reconstruction H/O section History of appendectomy History of mastectomy Social History Smoking Status: Former smoker quit date: 09/26/04 pack-years: 40 Tobacco: How many years used: 40 how long ago did patient quit smokin years ago second hand exposure: Yes alcohol intake: current alcohol intake frequency: 0-2 drinks per day Alcohol type: wine Review of Systems (Anesthesia) ROS Narrative System reviewed and no additional complaints, except as documented. Physical Exam Const alert and oriented x3 HEENT dentition normal 04/10/25 0851 <Electronically signed by Rafita Orourke D> Date _ Rafita Rios MD Cosigner Signature: Date CC: ~ Signed [facility] Work Phone: 1(283) 283-339907-16-2025 History and physical note Author [facility] Note Date/Time April 10, 2025 8:41 am [facility] Medical Records Department [address] [place] [id number] History & Physical Exam 04/10/25 0841 MR#: [id number] Acct: [id number] Name: BERRY ABAD JOVANA Rep #:[id number] : 1945 79 From: Rufina Godinez MD PCP: Dr. Aria Sanchez MD Status:[facility] Location: [place] [address] History and Physical Date of Admission: 04/10/25 Date of Service: 03/22/25 MR#: [id number] Acct: [id number] Name: BERRY ABAD JOVANA Rep #: [id number] : 1945 Provider: Dr. Rufina Godinez MD Age/Sex: 79/F Location: [facility] Status: Signed Intake Vital Signs 03/15/2509:19 03/18/2511:00 03/22/2508:11 Height 5 ft 4 in 5 ft 4 in 5 ft 4 in Weight: 145 lb BMI 24.9 BP 147/85 H Blood Pressure Location Rt brachial Position Sitting Respiration 18 Pulse 52 L Pulse Source Monitor Temp 97.6 F L Temp Source Temporal Pulse Oximetry (%) 98 Oxygen Delivery Method room air Intake Visit Reasons: DISCUSS MASECTOMY COMBO WITH DR PHILIP Chief Complaint: discuss masectomy combo with Dr. Philip Is patient in pain?: No Allergies bupropion HCl (From Zyban) Allergy (Severe, Verified 03/22/25 08:12) Hivesred dye Allergy (Mild, Verified 03/22/25 08:12) Itchingbupropion (From Zyban) Allergy (Verified 03/22/25 08:12) Hivesacetaminophen (From Vicodin) Adverse Reaction (Verified 03/22/25 08:12) N/Vhydrocodone (From Vicodin) Adverse Reaction (Verified 03/22/25 08:12) N/Vhydromorphone Adverse Reaction (Verified 03/22/25 08:12) constipation Medications ?Medication ?Instructions ?Recorded ?Confirmed ?Type pteqjutt-wxha-dygf 8 mg-folic 400 1 ea PO DAILY 05/27/16 03/22/25 History mcg-K 50 mcg-lutein 300 mcg tablet omega-3 fatty acids 1,000 mg 1,000 mg PO DAILY 05/27/16 03/22/25 Hist ory capsule benzonatate 200 mg capsule 200 mg PO TID PRN cough #20 caps 8 03/22/25 Rx antiarthritic combination no.2 900 mg PO 06/04/20 03/22/25 History mg tablet (glucosamine-chondroitin) atorvastatin 40 mg tablet 40 mg PO QHS #90 tabs 07/12/24 03/22/25 Rx famotidine-Ca carb-mag hydrox 10 1 tab PO DAILY PRN indigestion 07/12/24 03/22/25 History mg-800 mg-165 mg chewable tablet (Pepcid Complete) metoprolol succinate 25 mg 25 mg PO DAILY #90 tabs 10/17/24 06/27/2 5 Rx tablet,extended release 24 hr (Toprol XL) coconut oil 1,000 mg capsule mg PO 03/06/25 03/22/25 History levothyroxine 25 mcg tablet 75 mcg PO DAILY 03/06/25 03/22/25 Histor y melatonin 10 mg capsule 10 mg PO HS PRN insomnia 03/06/25 History Have you fallen in the past year?: No PFSH Medical History Laceration of left middle finger Status post placement of implantable loop recorder Syncope and collapse Chest tightness Non-rheumatic aortic stenosis Subdural hemorrhage Hematoma of scalp Fall Syncope Right bundle branch block (RBBB) GERD (gastroesophageal reflux disease) Cancer of right breast Hyperlipidemia Arthritis Essential (primary) hypertension Surgical History History of breast reconstruction H/O section History of appendectomy History of mastectomy Family History Brother , age 49 Cancer lung Social History Smoking Status: Former smoker quit date: 09/26/04 pack-years: 40 Tobacco: How many years used: 40 how long ago did patient quit smokin years ago second hand exposure: Yes alcohol intake: current alcohol intake frequency: 0-2 drinks per day Alcohol type: wine HPI HPI HPI: 79-year-old female presents to discuss treatment for left invasive lobular carcinoma. Patient previously had right mastectomy due to breast cancer. Patient is interested in having mastectomy with reconstruction. Patient and markers were ER positive NV negative, HER2 equivocal FISH pending. Patient is already seeing Dr. Murrieta. ROS General General: Yes breast cancer; No weight change, appetite, fatigue, colon cancer or weakness HEENT HEENT: No difficulty swallowing, eye injury, eye surgery, swollen glands or hoarseness Endo Endocrine: No thyroid disease, diabetes mellitus, thyroid cancer, Hair loss, heat intolerance or cold intolerance Skin Skin: No rash or changing moles Breast Breast: No left breast lump, right breast lump, nipple discharge, breast pain, abnormal mammogram, abnormal US or breast enlargement Musc Musculoskeletal: No back problems, arthritis, rheumatoid arthritis, gout or joint pain Cardio Cardiovascular: No murmur, pacemaker, heart disease, atrial fibrillation, high blood pressure, heart attack, heart stent, palpitations, shortness of breath with exertion or chest pain Psych Psychiatric: No depression, anxiety or hearing voices Resp Respiratory: No shortness of breath, No sleep apnea, No cough, No COPD, No asthma, No emphysema and No wheezing Gastro Gastrointestinal: No abdominal pain, No nausea or vomiting, No diarrhea, No constipation, No blood in stool, Yes acid reflux, Yes hemorrhoids, No ulcers, Nogallbladder problem and No black,tarry stools Timoteo Hematologic: No blood thinners, No blood disorders, No bleeding, No anemia and No blood clots Neuro Neurologic: No system reviewed and no additional complaints, except as documented, No as per HPI, No abnormal gait, No abnormal hearing, No abnormal movements, No abnormal speech, No behavioral changes, No burning sensations, No confusion, No convulsions, No disequilibrium, No dizziness, No localized weakness, No frequent falls, No headache(s), No lack of coordination, No loss ofvision, No memory loss, No numbness, No other visual disturbances, No radicular pain, No restless legs, No sensory deficit, No syncope, No tingling, No tremor(s), No weakness and No other Exam Const General: cooperative, healthy appearing and no acute distress [facility] Head: normal to inspection Chest Other: Breast inspection: Right mastectomy incision well-healed, previous biopsy incision healing well ecchymosis resolving?incision with Steri-Strips from removal loop recorder?left breast Resp Effort & Inspection: normal respiratory effort Cardio Rate: regular rate GI Inspection: non-distended Palpation: soft Skin General: no rashes or lesions noted Neuro General: patient oriented x3 Extrem General: no clubbing, cyanosis or edema Psych Affect: normal affect Assessment and Plan Assessment and Plan (1) Invasive lobular carcinoma of breast in female: Status: Acute Comment: Left Plan I have given the patient options for initial surgical treatment. Options are thefollowing: lumpectomy followed by radiation therapy vs. mastectomy vs. mastectomy followed by immediate reconstruction. I have described the proceduresto the patient. I have described the advantages and disadvantages of the options, but I have told the patient that among the options, the survival rate for breast cancer is the same. I have told the patient that with all the surgeries that a sentinel lymph node biopsy is required. I have described the procedure of sentinel lymph node biopsyto the patient. I have told the patient that if the biopsy is positive for metastatic disease, then a full axillary lymph node dissection is typically required however due to your age would likely not perform full axillary lymph node dissection. Currently clinically she is negative in the axilla. I have told the patient that adjuvant chemotherapy will be required should the lymph nodes reveal metastatic disease. Also, a full lymph node dissection will increase the risk for lymphedema, especially if there are 4 or more lymph nodes positive for metastatic disease and radiation to the axilla is also required. I have told the patient the risks of surgery, including but not limited to: infection, bleeding, scar tissue, seroma and persistent seroma, lymph leak, injury to any blood vessels, injury to any nerves (particularly the long thoracic, the thoracodorsal, and the second intercostal brachial and the resultant sequelae), lymphedema, cosmetic deformity, dysesthesias, wound infections, further surgery (especially if margins are not clear), complicationsof anesthesia, etc. the patient understands. Planning for left mastectomy, reconstruction with Dr. Philip, sentinel lymph nodebiopsy with nuclear tracer and blue dye. I have answered all the patient?s questions at this point to her satisfaction and she has no further questions. Rufina Godinez M.D. Pager: [phone] [facility] [address] [place] [address], [address] [place] [address] Office: [phone] Coding Level of Care Code Off vis,est,level 4 Diagnoses Invasive lobular carcinoma of breast in female C50.919 Clinical Quality Measures Falls Risk Screening/Assistive Devices Have you fallen in the past year?: No 03/25/25 0845 <Electronically signed by Rufina Godinez MD> Date Rufina Godinez MD 04/10/25 0841 <Electronically signed by Rufina Godinez MD> Cosigner Signature (if applicable): CC: Dr. Aria Sanchez MD; Dr. Rufina Godinez MD~ Signed ADDENDUM by Dr. Rufina Godinez MD on 04/10/25 at 0841 Addendum I have examined the patient and the H&P has been reviewed. There are no clinicalchanges since date of exam. 04/10/25 0841<Electronically signed by Rufina Godinez MD> Cosigner Signature (if applicable): cc: Dr. Aria Sanchez MD; Dr. Rufina Godinez MD ~* Signed [facility] Work Phone: 1(827) 358-268807-16-2025 History and physical note Author Giacomo Philip [facility] Note Date/Time April 10, 2025 7:26 am [facility] Medical Records Department [address] [place] [address] H&P Exam - Surgical 04/10/25 0717 MR#: [id number] Acct: [id number] Name: BERRY ABAD JOVANA Rep #:[id number] : 1945 79 From: Giacomo Philip MD PCP: Dr. Aria Sanchez MD Status:[facility] Location: [place] [address] HPI - General HPI Narrative HPI from clinic, 07 March 2025: The patient is a 79-year-old female presenting with a suspicious lump in the left breast. Previous medical history reveals a mastectomy on the right breast due to cancer approximately 40 years ago, followed by reconstruction using silicone implants, which eventually ruptured. This rupture was confirmed much later through MRI after several attempts to receive a diagnosis. Currently, the patient has undergone a biopsy for a potential malignancy on the left side. She had a mammogram and ultrasound, and a biopsy was performed to determine the nature of the lump. The patient has opted for surgical management over chemotherapy or radiation if malignancy is confirmed, emphasizing her preference following her previous experiences with breast surgery. Attestation: Documentation on this patient encounter was supported using ambient scribe technology/ voice AI technology. The patient consented to recording for the purpose of documenting the encounter. Provider reviewed content of the generatednote prior to signature. 13 March 2025: The patient is a 79-year-old female presenting with a suspicious lump in the left breast. Previous medical history reveals a mastectomy on the right breast due to cancer approximately 40 years ago, followed by reconstruction using silicone implants, which eventually ruptured. This rupture was confirmed much later through MRI after several attempts to receive a diagnosis. Currently, the patient has undergone a biopsy for a potential malignancy on the left side. She had a mammogram and ultrasound, and a biopsy was performed to determine the nature of the lump. The patient has opted for surgical management over chemotherapy or radiation if malignancy is confirmed, emphasizing her preference following her previous experiences with breast surgery. Side of Diagnosis: Left Prior Breast Surgery: R mastectomy (Skin Sparing) with submuscular silicone implant Bra Size: C Desired Bra Size: Same as right Attestation: Documentation on this patient encounter was supported using ambient scribe technology/ voice AI technology. The patient consented to recording for the purpose of documenting the encounter. Provider reviewed content of the generatednote prior to signature. Current Encounter, 28 March 2025: Patient is here today for to further discuss breast reconstruction options and get more questions answered. The patient discussed the possibility of placing the implant above or below the muscle, with considerations for matching the right side, which is below the muscle. The benefits of submuscular placement include additional protection and less visibility of the implant's top, which can be camouflaged with fat graftingif necessary. Patient would like to have the tissue mechanical estimator placed above the muscle after ourdiscussion. The surgical plan includes the possibility of using a tissue mechanical estimator initially,with the option to delay implant placement if the surgical site does not appear optimal post-mastectomy. The patient is informed about the potential need for multiple procedures, including the use of FlexHD to stabilize the implant and the process of expanding the tissue mechanical estimator with air initially, followed by fluid Current Encounter (DATE OF SURGERY H&P UPDATE): I saw and examined the patient this morning in pre-operative holding. We discussed risks and benefits of today's surgery and they would like to proceed. NO CHANGE in health history since last seen and evaluated. Ready to proceed with surgery. [facility] Medical History Wears hearing aid Wears glasses Post-menopausal Cancer Alcohol use Thyroid disease High cholesterol Injury of back Injury of head and neck Syncope Gastric reflux Former smoker History of echocardiogram History of stress test Cardiology follow-up encounter Laceration of left middle finger Status post placement of implantable loop recorder Syncope and collapse Syncope Fall Hematoma of scalp Subdural hemorrhage Non-rheumatic aortic stenosis Chest tightness Right bundle branch block (RBBB) GERD (gastroesophageal reflux disease) Cancer of right breast Hyperlipidemia Arthritis Essential (primary) hypertension Home Medications ?Medication ?Instructions ?Recorded ?Last Taken ?Type gevcdsnu-csqd-czhn 8 mg-folic 400 1 ea PO DAILY SUPPLE MENT 05/27/16 03/20/24 History mcg-K 50 mcg-lutein 300 mcg tablet benzonatate 200 mg capsule 200 mg PO TID PRN cough #20 caps 03/16/18 Unknown Rx atorvastatin 40 mg tablet 40 mg PO QHS CHOLESTEROL #90 tabs 07/12/24 Unknown Rx famotidine-Ca carb-mag hydrox 10 1 tab PO DAILY PRN in digestion 07/12/24 Unknown History mg-800 mg-165 mg chewable tablet (Pepcid Complete) metoprolol succinate 25 mg 25 mg PO DAILY BP #90 tabs 07/12/24 03/18/25 Rx tablet,extended release 24 hr (Toprol XL) melatonin 10 mg capsule 20 mg PO HS PRN insomnia 08/20 Unknown History levothyroxine 75 mcg tablet 75 mcg PO DAILY THYROID Unknown History Allergy/AdvReac Type Severity Reaction Status Date / Time bupropion HCl (From Zyban) Allergy Severe Hives Verified 03/28/25 09:52 red dye Allergy Mild Itching Verified 03/28/25 09:52 bupropion (From Zyban) Allergy Hives Verified 03/28/25 09:52 acetaminophen (From Vicodin) AdvReac N/V Verified 03/28/25 09:52 hydrocodone (From Vicodin) AdvReac N/V Verified 03/28/25 09:52 hydromorphone AdvReac constipatio Verified 03/28/25 09:52 n Family History Brother , age 49 Cancer lung Surgical History Hx of neck surgery History of breast reconstruction H/O section History of appendectomy History of mastectomy Social History Smoking Status: Former smoker quit date: 09/26/04 pack-years: 40 Tobacco: How many years used: 40 how long ago did patient quit smokin years ago second hand exposure: Yes alcohol intake: current alcohol intake frequency: 0-2 drinks per day Alcohol type: wine Physical Exam Narrative EXAM: A&O x3, NAD Breast Exam: Left breast with biopsy site in the lateral aspect Axillary Lymphadenopathy: No Scars: Mastectomy scar in the right breast (transverse). Implant is under the muscle on the right side (animation deformity). Note: measurements are in centimeters SN to NIPPLE:? L: 21? ? ?R: No nipple IMF to NIPPLE: ? ? ? L: 7 ? ? R: No nipple WIDTH: ? L: 14.5 ? ? R: 14.5 IMF is the same on both sides but there is significant asymmetry with the right implant sitting IN the chest wall and grade 2 ptosis on the left Assessment & Plan Assessment/Plan (1) Invasive lobular carcinoma of breast in female: (2) Left breast mass: PLAN: Plan This is a 79-year-old year-old female with invasive lobular carcinoma, left breast. The patient is a candidate for implant-based breast reconstruction with tissue mechanical estimator followed by exchange for silicone implant (patient desires silicone asshe has a silicone on the other side) and possible use of acellular dermal matrix, use of acellular dermal matrix (ADM) is used as an off-label device and can potentially increase postoperative complications (discussed infection, seroma, failure to incorporate, and other ADM complications). Furthermore we discussed subpectoral placement of the tissue mechanical estimator to match the contralateral breast, but patient wants above muscle for pain considerations. Will plan for prepectoral. I talked her about multistage surgery with exchange of the tissue mechanical estimator once it is at the appropriate size for approximately 3 months. An extensive discussion was undertaken with the patient detailing the risks, benefits and alternatives to implant-based breast reconstruction. We talked about surveillance of the implant and how she needs to have surveillance of the right side at some point (although does not feel ruptured on my exam, and she has normal grade 1 capsule). The effects of radiation on breast reconstruction, should that become a necessary part of her treatment, were discussed.? The patient verbalized understanding of these risks.? All questions were fully answered.?? Mrs. Abad was given supplemental information on breast reconstruction.? I haveadvised her to contact me at any time and/or return to see me with further questions she may have regarding breast reconstruction. Photographs have been taken and will be sent to the insurance company as necessary. The tissue mechanical estimator will initially be filled with air, followed by fluid expansion in subsequent visits to gradually prepare for the permanent implant. This phased approach is intended to minimize complications and ensure optimal outcomes. I talked to the patient extensively about the risks of surgery, including bleeding, infection, damage to surrounding structures, poor scaring, surgical site dehiscence and wound formation, need for wound care, need for repeat operations, implant infection/need for removal, fluid collections/infection risks from the off-label use of ADM (The use of FlexHD is planned to stabilize the implant and ensure proper positioning), failure to obtain the desired result,DVT/PE, and the risks of anesthesia including , including stroke (from low blood pressure/ischemia or clot). The benefits and alternatives of this surgery were also discussed. INTERVAL H&P PLAN, DATE OF SURGERY: We will proceed with surgery today. Discussed with patient and she would like to go prepectoral (not under the muscle). Plastic surgery will be available as needed for reconstruction (skin sparing mastectomy followed by tissue mechanical estimator placement, but PREPECTORAL with ADM wrap) 04/10/25 0726 <Electronically signed by Giacomo Philip MD> Cosigner Signature (if applicable): CC: Dr. Aria Sanchez MD; Dr. Giacomo Philip MD~ Signed [facility] Work Phone: [phone] Nuclear medicine Diagnostic study note [facility] Imaging Services [address] [place], [place] [id number] Lymph Node Injection Only MR#: [id number] Acct: [id number] Name: BERRY ABAD Rep #: [id number] : 1945 F 79 From: Beltran Durand MD PCP: Dr. Aria Sanchez MD Status: [facility] Study:Lymph Node Injection Only Date of Exam: 04/10/25 Exam# [id number] Ordering Dr: Yajaira Landrum PA-C PROCEDURE: LYMPH NODE INJECTION ONLY 04/10/2025 REASON FOR EXAM: LEFT BREAST CANCER TECHNIQUE: LYMPH NODE INJECTION ONLY 555 uCi of Tilmanocept was injected subdermally 1 cm above the left nipple for sentinel node imaging. RADIOPHARMACEUTICAL DOSE: 555 uCi COMPARISON: None FINDINGS: None NM/Lymph Node Injection Only IMPRESSION: Successful injection of 555 uCi of Tilmanocept injected subdermally for sentinelnode imaging. Reading Location: [facility] CC: BERTIN Landrum; Dr. Aria Sanchez MD; Dr. 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 Aria Sanchez MD Status:REG SDC Y Race: C Location: [place] [address] ASA Classification* ASA Classification ASA Classification: 2 Assessment & Plan Anesthesia* Anesthesia Assessment Anesthesia Assessment: Discussed sedation and/or anesthesia options, risks, benefits, and alternatives with patient/parents/legal guardian/POA. Questions invited. The patient/parents/legal guardian/POA seems to understand and agrees to proceedwith anesthesia plan. Reviewed the physical assessment, medical history, allergy history and patient home medications list prior to surgery/procedure/anesthetic and documented any changes. Performed airway and anesthesia risk assessments. Anesthesia Type Anesthesia Type: General (discussed GA with ETT. Discussed possibility of injuryto teeth, gums, lips, PONV, IA, CVA, post-op ventilation.) History Source History Obtained from:: Patient and Chart Anesthesia Focused Assessment* Temperature: 98 F Pulse Rate: 55 Blood Pressure: 135/57 Respiratory Rate: 16 Pulse Ox: 97 Oxygen Delivery Method: Room Air Airway Assessment Mouth opens: >3 cm Mallampati Score: II Teeth Condition: Intact Labs Anesthesia Preop lab: CBC WBC 5.4 K/mm3 (4.4-11.0) 08/06/24 08:35 08/06/24 RBC 4.47 M/mm3 (4.2-5.4) 08/06/24 08:35 08/06/24 Hgb 14.0 g/dL (12.0-15.0) 08/06/24 08:35 08/06/24 Hct 44.6 % (37-47) 08/06/24 08:35 08/06/24 Plt Count 243 K/mm3 (150-450) 08/06/24 08:35 08/06/24 CHEMISTRY Potassium 4.2 mmol/L (3.3-5.1) 02/05/25 06:30 02/05/25 Sodium 141 mmol/L (133-145) 02/05/25 06:30 02/05/25 BUN 17 mg/dL (4-19) 02/05/25 06:30 02/05/25 Creatinine 1.06 mg/dL (0.70-1.20) 02/05/25 06:30 02/05/25 Glucose 96 mg/dL (70-99) 02/05/25 06:30 02/05/25 TSH 0.902 uIU/mL (0.300-4.200) 02/05/25 06:30 01/24 12/18 COAG PT 14.2 SECONDS (11.7-14.9) 03/09/24 16:36 Pre-Assessment Diagnosis/Proposed Procedure Planned Operative Procedure(s): (L) Left Mastectomy w/SLN bx, blue dye & radiotracer - COMBO CASE WITH SISKA (L) LEFT BREAST TISSUE PV INSTALLER TECH PLACEMENT SUB MUSCULAR WITH ACELLULAR DERMAL MATRIX. 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 When Was Last Pacemaker Check QUESTION #4 FULL TEXT: You/Your Family Experience fever (hyperthermia) with Anesthesia Any additional information?: Yes Any Problems With Anesthesia: Yes (PONV) Cholinesterase deficiency: No You/your family experience fever (hyperthermia) with anesthesia: No Last Oral Intake Last Oral intake: Last Oral Intake NPO since 04:00 04/10/25 07:33 Meds taken in AM with sips of Yes 04/10/25 07:33 water? Meds patient instructed to see 04/10/25 07:33 take am of surgery PONV PONV - collective bargaining specialist: PONV - collective bargaining specialist Female Yes 03/27/25 14:44 HX of Motion Sickness Yes 03/27/25 14:44 HX of N/V After Surgery Yes 03/27/25 14:44 Non-Smoker Yes 03/27/25 14:44 Duration of Surgery greater Yes 03/27/25 14:44 than 60 minutes Number of Risk Factors 5 03/27/25 14:44 PONV Score Severe Risk 03/27/25 14:44 Height & Weight Height & Weight: Anesthesia: Height & Weight Height 5 ft 4 in 04/10/25 07:33 Weight: 66.678 kg 04/10/25 07:33 Body Mass Index (BMI) 25.2 04/10/25 07:33 Respiratory Assessment Respiratory Assessment - collective bargaining specialist: Respiratory Tract Infection Hx - collective bargaining specialist Hx Respiratory Tract Infection No 03/27/25 14:44 STOP Sleep Apnea STOP Sleep Apnea - collective bargaining specialist: STOP Sleep Apnea - collective bargaining specialist Hx Hypertension Yes: CONTROLLED ON MED 03/27/25 14:44 Hx Sleep Apnea No 03/27/25 14:44 CPAP No 03/27/25 14:44 BIPAP Do you snore loudly (louder No 03/27/25 14:44 than talking or can be heard Do you often feel tired/ No 03/27/25 14:44 fatigued/ sleepy during daytime? Has anyone observed you stop No 03/27/25 14:44 breathing during sleep? STOP Results Negative 03/27/25 14:44 QUESTION #5 FULL TEXT : Do you snore loudly (louder than talking or can be heard through closeddoors)? Tobacco Use History Tobacco Use History - collective bargaining specialist: Tobacco Use History - collective bargaining specialist Tobacco Use Smoking Status Former smoker 03/27/25 14:44 Hx Tobacco Use No 03/27/25 14:44 Years Smoking Packs Smoked per Day Smoking Cessation Date was No - quit smoking greater 03/27/25 14:44 within the last 15 years than 15 years ago Hx Smoking Cessation Date Hx Smoking Cessation No 03/27/25 14:44 Counseling Hematologic Medial History Hematologic Hx - collective bargaining specialist: Hematologic Medical Hx - funder Hx of Blood Transfusion No 03/27/25 14:44 Hx of Transfusion in last 3 No 03/27/25 14:44 Months Date of Last Transfusion (if within last 3 months) Ever experience any problems No 03/27/25 14:44 with transfusion(s)? Specify any problems Hx of Preganancy in last 3 No 03/27/25 14:44 Months Nurse Filling Out Transfusion VCHRISTIN 03/27/25 14:44 & Questions: Date: 03/27/25 03/27/25 14:44 Time: 14:50 03/27/25 14:44 Patient unable to answer at this time (ie. 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 Hx Now No 03/27/25 14:44 Gestational Age (in weeks): EDC: Hx Hx Para Hx Section SAB No 03/27/25 14:44 Active Medications Active Medications: Current Medications Generic Name Dose Route Start Last Admin Trade Name Freq PRN Reason Stop Dose Admin Cefazolin Sodium 2 gm/ Sodium 110 mls @ 200 mls/hr 04/10/25 09:00 Chloride IV 04/10/25 09:32 INTRAOP ONE Lactated Ringer's 1,000 mls @ 15 mls/hr 04/10/25 07:15 04/10/25 07:43 IV 15 mls/hr .Q48H JOYCELYN Administration PFSH Medical History Wears hearing aid Wears glasses Post-menopausal Cancer Alcohol use Thyroid disease High cholesterol Injury of back Injury of head and neck Syncope Gastric reflux Former smoker History of echocardiogram History of stress test Cardiology follow-up encounter Laceration of left middle finger Status post placement of implantable loop recorder Syncope and collapse Syncope Fall Hematoma of scalp Subdural hemorrhage Non-rheumatic aortic stenosis Chest tightness Right bundle branch block (RBBB) GERD (gastroesophageal reflux disease) Cancer of right breast Hyperlipidemia Arthritis Essential (primary) hypertension Home Medications ?Medication ?Instructions ?Recorded ?Last Taken ?Type irgtwysa-zrbm-ocln 8 mg-folic 400 1 ea PO DAILY SUPPLE MENT 05/27/16 03/20/24 History mcg-K 50 mcg-lutein 300 mcg tablet benzonatate 200 mg capsule 200 mg PO TID PRN cough #20 caps 03/16/18 04/03/25 Rx atorvastatin 40 mg tablet 40 mg PO QHS CHOLESTEROL #90 tabs 07/12/24 04/09/25 Rx famotidine-Ca carb-mag hydrox 10 1 tab PO DAILY PRN in digestion 07/12/24 04/08/25 History mg-800 mg-165 mg chewable tablet (Pepcid Complete) metoprolol succinate 25 mg 25 mg PO DAILY BP #90 tabs 07/12/24 04/10/25 04:00 Rx tablet,extended release 24 hr (Toprol XL) melatonin 10 mg capsule 20 mg PO HS PRN insomnia 08/20 Unknown History levothyroxine 75 mcg tablet 75 mcg PO DAILY THYROID 04/10/25 History cephalexin 500 mg capsule 500 mg PO Q8H 2 weeks #42 ca ps 04/10/25 Unknown Rx Allergy/AdvReac Type Severity Reaction Status Date / Time bupropion HCl (From Zyban) Allergy Severe Hives Verified 04/10/25 07:26 red dye Allergy Mild Itching Verified 04/10/25 07:26 bupropion (From Zyban) Allergy Hives Verified 04/10/25 07:26 hydrocodone (From Vicodin) AdvReac N/V Verified 04/10/25 07:26 hydromorphone AdvReac constipatio Verified 04/10/25 07:26 n Family History Brother , age 49 Cancer lung Surgical History Hx of neck surgery History of breast reconstruction H/O section History of appendectomy History of mastectomy Social History Smoking Status: Former smoker quit date: 09/26/04 pack-years: 40 Tobacco: How many years used: 40 how long ago did patient quit smokin years ago second hand exposure: Yes alcohol intake: current alcohol intake frequency: 0-2 drinks per day Alcohol type: wine Review of Systems (Anesthesia) ROS Narrative System reviewed and no additional complaints, except as documented. Physical Exam Const alert and oriented x3 HEENT dentition normal 04/10/25 0851 D> Date _ Rafita Rios MD Cosigner Signature: Date CC: ~ Signed [facility]07-16-2025 History and physical note [facility] Medical Records Department [address] [place] [address] History & Physical Exam 04/10/25 0841 MR#: [id number] Acct: [id number] Name: BERRY ABAD JOVANA Rep #:[id number] : 1945 79 From: Rufina Godinez MD PCP: Dr. Aria Sanchez MD Status:[facility] Location: [place] [address] History and Physical Date of Admission: 04/10/25 Date of Service: 03/22/25 MR#: [id number] Acct: [id number] Name: BERRY ABAD JOVANA Rep #: [id number] : 1945 Provider: Dr. Rufina Godinez MD Age/Sex: 79/F Location: [facility] Status: Signed Intake Vital Signs 03/15/2509:19 03/18/2511:00 03/22/2508:11 Height 5 ft 4 in 5 ft 4 in 5 ft 4 in Weight: 145 lb BMI 24.9 BP 147/85 H Blood Pressure Location Rt brachial Position Sitting Respiration 18 Pulse 52 L Pulse Source Monitor Temp 97.6 F L Temp Source Temporal Pulse Oximetry (%) 98 Oxygen Delivery Method room air Intake Visit Reasons: DISCUSS MASECTOMY COMBO WITH DR PHILIP Chief Complaint: discuss masectomy combo with Dr. Philip Is patient in pain?: No Allergies bupropion HCl (From Zyban) Allergy (Severe, Verified 03/22/25 08:12) Hivesred dye Allergy (Mild, Verified 03/22/25 08:12) Itchingbupropion (From Zyban) Allergy (Verified 03/22/25 08:12) Hivesacetaminophen (From Vicodin) Adverse Reaction (Verified 03/22/25 08:12) N/Vhydrocodone (From Vicodin) Adverse Reaction (Verified 03/22/25 08:12) N/Vhydromorphone Adverse Reaction (Verified 03/22/25 08:12) constipation Medications ?Medication ?Instructions ?Recorded ?Confirmed ?Type qclcsife-rdgn-ueky 8 mg-folic 400 1 ea PO DAILY 05/27/16 03/22/25 History mcg-K 50 mcg-lutein 300 mcg tablet omega-3 fatty acids 1,000 mg 1,000 mg PO DAILY 05/27/16 03/22/25 Hist ory capsule benzonatate 200 mg capsule 200 mg PO TID PRN cough #20 caps 8 03/22/25 Rx antiarthritic combination no.2 900 mg PO 06/04/20 03/22/25 History mg tablet (glucosamine-chondroitin) atorvastatin 40 mg tablet 40 mg PO QHS #90 tabs 07/12/24 03/22/25 Rx famotidine-Ca carb-mag hydrox 10 1 tab PO DAILY PRN indigestion 07/12/24 03/22/25 History mg-800 mg-165 mg chewable tablet (Pepcid Complete) metoprolol succinate 25 mg 25 mg PO DAILY #90 tabs 07/12/24 5 Rx tablet,extended release 24 hr (Toprol XL) coconut oil 1,000 mg capsule mg PO 03/06/25 03/22/25 History levothyroxine 25 mcg tablet 75 mcg PO DAILY 03/06/25 03/22/25 Histor y melatonin 10 mg capsule 10 mg PO HS PRN insomnia 03/06/25 History Have you fallen in the past year?: No PFSH Medical History Laceration of left middle finger Status post placement of implantable loop recorder Syncope and collapse Chest tightness Non-rheumatic aortic stenosis Subdural hemorrhage Hematoma of scalp Fall Syncope Right bundle branch block (RBBB) GERD (gastroesophageal reflux disease) Cancer of right breast Hyperlipidemia Arthritis Essential (primary) hypertension Surgical History History of breast reconstruction H/O section History of appendectomy History of mastectomy Family History Brother , age 49 Cancer lung Social History Smoking Status: Former smoker quit date: 09/26/04 pack-years: 40 Tobacco: How many years used: 40 how long ago did patient quit smokin years ago second hand exposure: Yes alcohol intake: current alcohol intake frequency: 0-2 drinks per day Alcohol type: wine HPI HPI HPI: 79-year-old female presents to discuss treatment for left invasive lobular carcinoma. Patient previously had right mastectomy due to breast cancer. Patient is interested in having mastectomy with reconstruction. Patient and markers were ER positive NV negative, HER2 equivocal FISH pending. Patient is already seeing Dr. Murrieta. ROS General General: Yes breast cancer; No weight change, appetite, fatigue, colon cancer or weakness HEENT HEENT: No difficulty swallowing, eye injury, eye surgery, swollen glands or hoarseness Endo Endocrine: No thyroid disease, diabetes mellitus, thyroid cancer, Hair loss, heat intolerance or cold intolerance Skin Skin: No rash or changing moles Breast Breast: No left breast lump, right breast lump, nipple discharge, breast pain, abnormal mammogram, abnormal US or breast enlargement Musc Musculoskeletal: No back problems, arthritis, rheumatoid arthritis, gout or joint pain Cardio Cardiovascular: No murmur, pacemaker, heart disease, atrial fibrillation, high blood pressure, heart attack, heart stent, palpitations, shortness of breath with exertion or chest pain Psych Psychiatric: No depression, anxiety or hearing voices Resp Respiratory: No shortness of breath, No sleep apnea, No cough, No COPD, No asthma, No emphysema andNo wheezing Gastro Gastrointestinal: No abdominal pain, No nausea or vomiting, No diarrhea, No constipation, No blood in stool, Yes acid reflux, Yes hemorrhoids, No ulcers, Nogallbladder problem and No black,tarry stools Timoteo Hematologic: No blood thinners, No blood disorders, No bleeding, No anemia and No blood clots Neuro Neurologic: No system reviewed and no additional complaints, except as documented, No as per HPI, No abnormal gait, No abnormal hearing, No abnormal movements, No abnormal speech, No behavioral changes, No burning sensations, No confusion, No convulsions, No disequilibrium, No dizziness, No localized weakness, No frequent falls, No headache(s), No lack of coordination, No loss ofvision, No memoryloss, No numbness, No other visual disturbances, No radicular pain, No restless legs, No sensory deficit, No syncope, No tingling, No tremor(s), No weakness and No other Exam Const General: cooperative, healthy appearing and no acute distress [facility] Head: normal to inspection Chest Other: Breast inspection: Right mastectomy incision well-healed, previous biopsy incision healing well ecchymosis resolving?incision with Steri-Strips from removal loop recorder?left breast Resp Effort & Inspection: normal respiratory effort Cardio Rate: regular rate GI Inspection: non-distended Palpation: soft Skin General: no rashes or lesions noted Neuro General: patient oriented x3 Extrem General: no clubbing, cyanosis or edema Psych Affect: normal affect Assessment and Plan Assessment and Plan (1) Invasive lobular carcinoma of breast in female: Status: Acute Comment: Left Plan I have given the patient options for initial surgical treatment. Options are thefollowing: lumpectomy followed by radiation therapy vs. mastectomy vs. mastectomy followed by immediate reconstruction.I have described the proceduresto the patient. I have described the advantages and disadvantages of the options, but I have told the patient that among the options, the survival rate for breast cancer is the same. I have told the patient that with all the surgeries that a sentinel lymph node biopsy is required. I have described the procedure of sentinel lymph node biopsyto the patient. I have told the patient that if the biopsy is positive for metastatic disease, then a full axillary lymph node dissection istypically required however due to your age would likely not perform full axillary lymph node dissection. Currently clinically she is negative in the axilla. I have told the patient that adjuvant chemotherapy will be required should the lymph nodes reveal metastatic disease. Also, a full lymph node dissection will increase the risk for lymphedema, especially if there are 4 or more lymph nodes positive for metastatic disease and radiation to the axilla is also required. I have told the patient the risks of surgery, including but not limited to: infection, bleeding, scar tissue, seroma and persistent seroma, lymph leak, injury to any blood vessels, injury to any nerves (particularly the long thoracic, the thoracodorsal, and the second intercostal brachial and the resultant sequelae), lymphedema, cosmetic deformity, dysesthesias, wound infections, further surgery (especially if margins are not clear), complicationsof anesthesia, etc. the patient understands. Planning for left mastectomy, reconstruction with Dr. Philip, sentinel lymph nodebiopsy with nucleartracer and blue dye. I have answered all the patient?s questions at this point to her satisfaction and she has no further questions. Rufina Godinez M.D. Pager: [phone] [facility] [address] [place] [address], [address] [place] [address] Office: [phone] Coding Level of Care Code Off vis,est,level 4 Diagnoses Invasive lobular carcinoma of breast in female C50.919 Clinical Quality Measures Falls Risk Screening/Assistive Devices Have you fallen in the past year?: No 03/25/2545 Date Rufina Godinez MD 04/10/25 0841 Cosigner Signature (if applicable): CC: Dr. Aria Sanchez MD; Dr. Rufina Godinez MD~ Signed ADDENDUM by Dr. Rufina Godinez MD on 04/10/25 at 0841 Addendum I have examined the patient and the H&P has been reviewed. There are no clinicalchanges since date of exam. 04/10/25 0841 Cosigner Signature (if applicable): cc: Dr. Aria Sanchez MD; Dr. Rufina Godinez MD ~* Signed [facility]07-16-2025 [facility] Medical Records Department [address] [place] [id number] History Physical Exam 04/10/25 0841 MR#: [id number] Acct: [id number] Name: BERRY ABAD JOVANA Rep #: [id number] : 1945 79 From: Rufina Godinez MD PCP: Dr. Aria Sanchez MD Status:[facility] Location: [place] [address] History and Physical Date of Admission: 04/10/25 Date of Service: 03/22/25 MR#: [id number] Acct: [id number] Name: BERRY ABAD JOVANA Rep #: [id number] : 1945 Provider: Dr. Rufina Godinez MD Age/Sex: 79/F Location: [facility] Status: Signed Intake Vital Signs 03/15/2509:19 03/18/2511:00 03/22/2508:11 Height 5 ft 4 in 5 ft 4 in 5 ft 4 in Weight: 145 lb BMI 24.9 BP 147/85 H Blood Pressure Location Rt brachial Position Sitting Respiration 18 Pulse 52 L Pulse Source Monitor Temp 97.6 F L Temp Source Temporal Pulse Oximetry (%) 98 Oxygen Delivery Method room air Intake Visit Reasons: DISCUSS MASECTOMY COMBO WITH DR PHILIP Chief Complaint: discuss masectomy combo with Dr. Philip Is patient in pain?: No Allergies bupropion HCl (From Zyban) Allergy (Severe, Verified 03/22/25 08:12) Hivesred dye Allergy (Mild, Verified 03/22/25 08:12) Itchingbupropion (From Zyban) Allergy (Verified 03/22/25 08:12) Hivesacetaminophen (From Vicodin) Adverse Reaction (Verified 03/22/25 08:12) N/Vhydrocodone (From Vicodin) Adverse Reaction (Verified 03/22/25 08:12) N/Vhydromorphone Adverse Reaction (Verified 03/22/25 08:12) constipation Medications ???Medication ???Instructions ???Recorded ???Confirmed ???Type ppxcilld-svyf-iccv 8 mg-folic 400 1 ea PO DAILY 05/27/16 03/22/25 History mcg-K 50 mcg-lutein 300 mcg tablet omega-3 fatty acids 1,000 mg 1,000 mg PO DAILY 05/27/16 03/22/25 History capsule benzonatate 200 mg capsule 200 mg PO TID PRN cough #20 caps 03/16/18 03/22/25 Rx antiarthritic combination no.2 900 mg PO 06/04/20 03/22/25 History mg tablet (glucosamine-chondroitin) atorvastatin 40 mg tablet 40 mg PO QHS #90 tabs 07/12/24 03/22/25 Rx famotidine-Ca carb-mag hydrox 10 1 tab PO DAILY PRN indigestion 07/12/24 03/22/25 H istory mg-800 mg-165 mg chewable tablet (Pepcid Complete) metoprolol succinate 25 mg 25 mg PO DAILY #90 tabs 07/12/24 03/22/25 Rx tablet,extended release 24 hr (Toprol XL) coconut oil 1,000 mg capsule mg PO 03/06/25 03/22/25 History levothyroxine 25 mcg tablet 75 mcg PO DAILY 03/06/25 03/22/25 History melatonin 10 mg capsule 10 mg PO HS PRN insomnia 03/06/25 03/22/25 History Have you fallen in the past year?: No PFSH Medical History Laceration of left middle finger Status post placement of implantable loop recorder Syncope and collapse Chest tightness Non-rheumatic aortic stenosis Subdural hemorrhage Hematoma of scalp Fall Syncope Right bundle branch block (RBBB) GERD (gastroesophageal reflux disease) Cancer of right breast Hyperlipidemia Arthritis Essential (primary) hypertension Surgical History History of breast reconstruction H/O section History of appendectomy History of mastectomy Family History Brother , age 49 Cancer lung Social History Smoking Status: Former smoker quit date: 09/26/04 pack-years: 40 Tobacco: How many years used: 40 how long ago did patient quit smokin years ago second hand exposure: Yes alcohol intake: current alcohol intake frequency: 0-2 drinks per day Alcohol type: wine HPI HPI HPI: 79-year-old female presents to discuss treatment for left invasive lobular carcinoma. Patient previously had right mastectomy due to breast cancer. Patient is interested in having mastectomy with reconstruction. Patient and markers were ER positive NV negative, HER2 equivocal FISH pending. Patient is already seeing Dr. Murrieta. ROS General General: Yes breast cancer; No weight change, appetite, fatigue, colon cancer or weakness HEENT HEENT: No difficulty swallowing, eye injury, eye surgery, swollen glands or hoarseness Endo Endocrine: No thyroid disease, diabetes mellitus, thyroid cancer, Hair loss, heat intolerance or cold intolerance Skin Skin: No rash or changing moles Breast Breast: No left breast lump, right breast lump, nipple discharge, breast pain, abnormal mammogram, abnormal US or breast enlargement Musc Musculoskeletal: No back problems, arthritis, rheumatoid arthritis, gout or joint pain Cardio Cardiovascu (more content not included)...[facility]07-16-2025 History and physical note [facility] Medical Records Department [address] [place] [id number] H&P Exam - Surgical 04/10/25 0717 MR#: [id number] Acct: [id number] Name: BERRY ABAD JOVANA Rep #:[id number] : 1945 79 From: Giacomo Philip MD PCP: Dr. Aria Sanchez MD Status:[facility] Location: [place] [address] HPI - General HPI Narrative HPI from clinic, 07 March 2025: The patient is a 79-year-old female presenting with a suspicious lump in the left breast. Previous medical history reveals a mastectomy on the right breast due to cancer approximately 40 years ago, followed by reconstruction using silicone implants, which eventually ruptured. This rupture was confirmed much later through MRI after several attempts to receive a diagnosis. Currently, the patient has undergone a biopsy for a potential malignancy on the left side. She had a mammogram and ultrasound, and a biopsy was performed to determine the nature of the lump. The patient has opted for surgical management over chemotherapy or radiation if malignancy is confirmed, emphasizing her preference following her previous experiences with breast surgery. Attestation: Documentation on this patient encounter was supported using ambient scribe technology/ voice AI technology. The patient consented to recording for the purpose of documenting the encounter. Provider reviewed content of the generatednote prior to signature. 13 March 2025: The patient is a 79-year-old female presenting with a suspicious lump in the left breast. Previous medical history reveals a mastectomy on the right breast due to cancer approximately 40 years ago, followed by reconstruction using silicone implants, which eventually ruptured. This rupture was confirmed much later through MRI after several attempts to receive a diagnosis. Currently, the patient has undergone a biopsy for a potential malignancy on the left side. She had a mammogram and ultrasound, and a biopsy was performed to determine the nature of the lump. The patient has opted for surgical management over chemotherapy or radiation if malignancy is confirmed, emphasizing her preference following her previous experiences with breast surgery. Side of Diagnosis: Left Prior Breast Surgery: R mastectomy (Skin Sparing) with submuscular silicone implant Bra Size: C Desired Bra Size: Same as right Attestation: Documentation on this patient encounter was supported using ambient scribe technology/ voice AI technology. The patient consented to recording for the purpose of documenting the encounter. Provider reviewed content of the generatednote prior to signature. Current Encounter, 28 March 2025: Patient is here today for to further discuss breast reconstruction options and get more questions answered. The patient discussed the possibility of placing the implant above or below the muscle, with considerations for matching the right side, which is below the muscle. The benefits of submuscular placement include additional protection and less visibility of the implant's top, which can be camouflaged with fat graftingif necessary. Patient would like to have the tissue mechanical estimator placed above the muscle after ourdiscussion. The surgical plan includes the possibility of using a tissue mechanical estimator initially,with the option to delay implant placement if the surgical site does not appear optimal post-mastectomy. The patient isinformed about the potential need for multiple procedures, including the use of FlexHD to stabilizethe implant and the process of expanding the tissue mechanical estimator with air initially, followed by fluid Current Encounter (DATE OF SURGERY H&P UPDATE): I saw and examined the patient this morning in pre-operative holding. We discussed risks and benefits of today's surgery and they would like to proceed. NO CHANGE in health history since last seen and evaluated. Ready to proceed with surgery. [facility] Medical History Wears hearing aid Wears glasses Post-menopausal Cancer Alcohol use Thyroid disease High cholesterol Injury of back Injury of head and neck Syncope Gastric reflux Former smoker History of echocardiogram History of stress test Cardiology follow-up encounter Laceration of left middle finger Status post placement of implantable loop recorder Syncope and collapse Syncope Fall Hematoma of scalp Subdural hemorrhage Non-rheumatic aortic stenosis Chest tightness Right bundle branch block (RBBB) GERD (gastroesophageal reflux disease) Cancer of right breast Hyperlipidemia Arthritis Essential (primary) hypertension Home Medications ?Medication ?Instructions ?Recorded ?Last Taken ?Type [id number] 8 mg-folic 400 1 ea PO DAILY SUPPLE MENT 05/27/16 03/20/24 History mcg-K 50 mcg-lutein 300 mcg tablet benzonatate 200 mg capsule 200 mg PO TID PRN cough #20 caps 03/16/18 Unknown Rx atorvastatin 40 mg tablet 40 mg PO QHS CHOLESTEROL #90 tabs 07/12/24 Unknown Rx famotidine-Ca carb-mag hydrox 10 1 tab PO DAILY PRN in digestion 07/12/24 Unknown History mg-800 mg-165 mg chewable tablet (Pepcid Complete) metoprolol succinate 25 mg 25 mg PO DAILY BP #90 tabs 07/12/24 03/18/25 Rx tablet,extended release 24 hr (Toprol XL) melatonin 10 mg capsule 20 mg PO HS PRN insomnia 08/20 Unknown History levothyroxine 75 mcg tablet 75 mcg PO DAILY THYROID Unknown History Allergy/AdvReac Type Severity Reaction Status Date / Time bupropion HCl (From Zyban) Allergy Severe Hives Verified 03/28/25 09:52 red dye Allergy Mild Itching Verified 03/28/25 09:52 bupropion (From Zyban) Allergy Hives Verified 03/28/25 09:52 acetaminophen (From Vicodin) AdvReac N/V Verified 03/28/25 09:52 hydrocodone (From Vicodin) AdvReac N/V Verified 03/28/25 09:52 hydromorphone AdvReac constipatio Verified 03/28/25 09:52 n Family History Brother , age 49 Cancer lung Surgical History Hx of neck surgery History of breast reconstruction H/O section History of appendectomy History of mastectomy Social History Smoking Status: Former smoker quit date: 09/26/04 pack-years: 40 Tobacco: How many years used: 40 how long ago did patient quit smokin years ago second hand exposure: Yes alcohol intake: current alcohol intake frequency: 0-2 drinks per day Alcohol type: wine Physical Exam Narrative EXAM: A&O x3, NAD Breast Exam: Left breast with biopsy site in the lateral aspect Axillary Lymphadenopathy: No Scars: Mastectomy scar in the right breast (transverse). Implant is under the muscle on the right side (animation deformity). Note: measurements are in centimeters SN to NIPPLE:? L: 21? ? ?R: No nipple IMF to NIPPLE: ? ? ? L: 7 ? ? R: No nipple WIDTH: ? L: 14.5 ? ? R: 14.5 IMF is the same on both sides but there is significant asymmetry with the right implant sitting IN the chest wall and grade 2 ptosis on the left Assessment & Plan Assessment/Plan (1) Invasive lobular carcinoma of breast in female: (2) Left breast mass: PLAN: Plan This is a 79-year-old year-old female with invasive lobular carcinoma, left breast. The patient is a candidate for implant-based breast reconstruction with tissue mechanical estimator followed byexchange for silicone implant (patient desires silicone asshe has a silicone on the other side) andpossible use of acellular dermal matrix, use of acellular dermal matrix (ADM) is used as an off-label device and can potentially increase postoperative complications (discussed infection, seroma, failure to incorporate, and other ADM complications). Furthermore we discussed subpectoral placement of the tissue mechanical estimator to match the contralateral breast, but patient wants above muscle for pain considerations. Will plan for prepectoral. I talked her about multistage surgery with exchange of the tissue mechanical estimator once it is at the appropriate size for approximately 3 months. An extensive discussion was undertaken with the patient detailing the risks, benefits and alternatives to implant-based breast reconstruction. We talked about surveillance of the implant and how she needs to have surveillance of the right side at some point (although does not feel ruptured on my exam, and she has normal grade 1 capsule). The effects of radiation on breast reconstruction, should that become a necessary part of her treatment, were discussed.? The patient verbalized understanding of these risks.? All questions were fully answered.?? Mrs. Abad was given supplemental information on breast reconstruction.? I haveadvised her to contact me at any time and/or return to see me with further questions she may have regarding breast reconstruction. Photographs have been taken and will be sent to the insurance company as necessary. The tissue mechanical estimator will initially be filled with air, followed by fluid expansion in subsequent visits to gradually prepare for the permanent implant. This phased approach is intended to minimize complications and ensure optimal outcomes. I talked to the patient extensively about the risks of surgery, including bleeding, infection, damage to surrounding structures, poor scaring, surgical site dehiscence and wound formation, need for wound care, need for repeat operations, implant infection/need for removal, fluid collections/infection risks from the off-label use of ADM (The use of FlexHD is planned to stabilize the implant and ensure proper positioning), failure to obtain the desired result,DVT/PE, and the risks of anesthesia including , including stroke (from low blood pressure/ischemia or clot). The benefits and alternatives of this surgery were also discussed. INTERVAL H&P PLAN, DATE OF SURGERY: We will proceed with surgery today. Discussed with patient and she would like to go prepectoral (not under the muscle). Plastic surgery will be available as needed for reconstruction (skin sparing mastectomy followed bytissue mechanical estimator placement, but PREPECTORAL with ADM wrap) 04/10/25 9244 Cosigner Signature (if applicable): CC: Dr. Aria Sanchez MD; Dr. Giacomo Philip MD~ Signed [facility]07-08-2025 Hospital Discharge instructionsAmbulatory Orders* 12 Lead EKG [[facility]] Time Frame: 04/02/25, Location: None Selected Additional Instructions Breast tissue mechanical estimator placement Instructions for My Care at Home or Healthcare Facility The following instructions will help you know what to expect in the days following surgery. These are general instructions. Your surgeon and therapist may give you special instructions, which vary to some degree based on your specific procedure -- follow those as directed. Do not, however, hesitate to call if you have any questions or concerns. Splint Care/Dressing Care/Wound Care Dressings - You may have a dressing over the operative site. If the dressing feels too tight after you get home, it is ok to gently pull on the dressing to stretch it out/loosen it. Do not put pressure over the breast incision site. Wear a loose bra with padding, no rubbing on the incision Avoid smoking or other tobacco products. Smoking tobacco impairs wound healing and increases the risks of post-operative complications. Tape over your incisions (if present) will fall off on its own Activities For the first 4 weeks after surgery, try to balance your activity, allowing time for rest. Avoid lifting, pushing, or pulling anything over [address] or operate heavy machinery within 24 hrs of surgery or while taking narcotic pain medication. Pain Control/Medications If you received an anesthetic block, your hand or arm may be numb for several hours. You will be discharged to home with medications, including an oral pain medication (analgesic). Rest and elevation are still one of the most important factors for pain control. Take your pain medication as needed, but do not wait for the pain to become out of control. For severe pain, you may take prescription pain medication as directed, but please note that this may also contain Tylenol (e.g. Percocet). Do not take more than 4000mg of Tylenol (acetaminophen) from all sources daily. Pain medication may cause some lethargy, nausea, and or constipation. You should not drive/operate dangerous machinery while taking these medications. If these or other symptoms become significantly problematic, please your surgeon's office. If prescribed oral antibiotics (Keflex, Clindamycin, or others), please take prescription for full duration as instructed. You should not have any pills remaining once completed (refills are written for your convenience should the course need to be extended, but generally they are not required). Diet (what I can eat): Resume normal diet Follow up You will be seen (most likely) 1 to 2 weeks after surgery depending on the procedure. Follow-up appointment reminders: (A list of any scheduled appointments is at the end of this document) At your earliest convenience, please call [phone] to confirm/schedule a follow-up appointment with me in clinic. When to call your surgeon: If any signs of surgical site infection develop: redness, pus, pain, increased swelling or foul odor at the incision site, fever, cold and clammy skin, or confusion. Consistent temperature above 101 F (38.3 C). The affected area gets swollen or much more painful. You have excessive bleeding from surgical site (soaking through). If you experience difficulty breathing and/or shortness of breath, seek immediate medical attention. If experiencing any of the above complications or if you have any questions, call [phone] Drain Care: A drain has been placed during surgery in order to prevent the accumulation of fluids beneath your skin. The drain decreases the chance of infection and helps in the healing process. The nursing staff will instruct you and your family on the care and recording of drainage. You may shower with them. Let soap and water run down over drains, rinse and pat dry with clean towel. Reinforce with gauze or ABD pad around drain site if leaking occurs around the drain; this is not unusual. Hold drains in your hand or attach to lanyard (or string) around your neck with safety pin so they do not hang from your body (the tension on your skin may cause them to be pulled out) while your are showering. The drains are attached to you with suture. If your drain(s) falls out accidentally, place a clean piece of gauze over the drain site with tape and discard your drain. If your drain bulb loses suction or your drain has migrated out from the drain site, do not attempt to push the drain back into your skin. Cover the area with dry gauze. You may be asked by your surgeon to place a piece of semi occlusive dressing (tegaderm) over the drain site to keep the site clean and drain in place until you are seen in the office. When you are wearing clothes, attach drains to your clothes in a place where there is minimal/no tension on the insertion site to your skin. You should empty the drainage and record the output at least 2 times per day, or when the drainage fills the bulb almost intermediate. Please keep daily amounts of drainage separate for each drain for a 24-hour period (for example drain #1 put out 40 mL for 24 hours). Strip your drains daily as shown to you by your nurse prior to discharge to avoid them from becoming clogged: Wash your hands. Strip tubing three times a day (more often if there are a lot of blood clots). Grasp tubing close to body with one hand and pull toward body. With other hand grasp tubing below the first hand. Using an alcohol swab, pinch tubing tightly, sliding fingers down tubing, away from body. Repeat 2 or 3 times. Be sure drainage is flowing into bulbs. Measure the drainage in the bulb by either using the calibrations on the bulb or by emptying the Bulb into small measuring container 3 times a day (more often if there is a lot of drainage or they feel heavy) Open small lid on top of bulb. Pour drainage into container. Squeeze bulb and hold while replacing small lid. Bulb should be collapsed to be effective. Pin bulb to clothing so the weight will not pull on the insertion site. Measure drainage and record amount each time you empty the bulbs. Hold container at eye level to read the numbers on the side of the container. Read the numbers in the ml column. Record amount of drainage on chart. Record your drain output daily and bring this record with you to your next follow up appointment. Drains will typically be removed in the clinic when output is less than 30 mL/24 hours per drain over 2 consecutive days. For drain removal appointment, please call your doctors office directly to schedule. Location: Drain #1 Drain #2 Drain #3 Drain #4 AM Noon PM AM Noon PM AM Noon PM AM Noon PM Date: Total (daily) AM Noon PM AM Noon PM AM Noon PM AM Noon PM Date: Total (daily) AM Noon PM AM Noon PM AM Noon PM AM Noon PM Date: Total (daily) AM Noon PM AM Noon PM AM Noon PM AM Noon PM Date: Total (daily) AM Noon PM AM Noon PM AM Noon PM AM Noon PM Date: Total (daily) AM Noon PM AM Noon PM AM Noon PM AM Noon PM Date: Total (daily) AM Noon PM AM Noon PM AM Noon PM AM Noon PM Date: Total (daily) AM Noon PM AM Noon PM AM Noon PM AM Noon PM Date: Total (daily) AM Noon PM AM Noon PM AM Noon PM AM Noon PM Date: Total (daily) AM Noon PM AM Noon PM AM Noon PM AM Noon PM Date: Total (daily) AM Noon PM AM Noon PM AM Noon PM AM Noon PM Date: Total (daily) AM Noon PM AM Noon PM AM Noon PM AM Noon PM Date: Total (daily) AM Noon PM AM Noon PM AM Noon PM AM Noon PM Date: Total (daily) AM Noon PM AM Noon PM AM Noon PM AM Noon PM Date: Total (daily) AM Noon PM AM Noon PM AM Noon PM AM Noon PM Date: Total (daily) [facility] Work Phone: 1(344) 124-782806-23-2025 NoteRequest received from Bertha Bo MD of count includes the [facility], [facility] for HER2, FISH testing on the unstained slides received from [facility]. Pre-Op Diagnosis: left breast biopsy, BIRAD5.[facility] HospitalComment on above:Performed By: #### SURGP #### [facility] (DEFAULT) [address] [place] [address] [id number] Evaluation note* Diagnosis Onset Date Resolution Status Admit Date Left breast mass acute February 2:35pm Status post placement of implantable loop recorder chronic February 242024 2:35pm [facility] Work Phone: 1(864) 389-145206-11-2025 Evaluation note* Diagnosis Onset Date Resolution Status Admit Date Left breast mass acute February 2:35pm Status post placement of implantable loop recorder chronic February 242024 2:35pm Left breast mass acute February 2:10pm [facility] Work Phone: 1(576) 443-850206-11-2025 Evaluation note* Diagnosis Onset Date Resolution Status Admit Date Left breast mass acute February 2:35pm Status post placement of implantable loop recorder chronic February 242024 2:35pm Left breast mass acute February 2:10pm Left breast mass acute February 2:11pm [facility] Work Phone: 1(185) 543-142206-11-2025 Evaluation note* Diagnosis Onset Date Resolution Status Admit Date Left breast mass acute February 2:35pm Status post placement of implantable loop recorder chronic February 242024 2:35pm Left breast mass acute February 2:10pm Left breast mass acute February 2:11pm Invasive lobular carcinoma o f breast in female acute March 22, 2025 8:07am [facility] Work Phone: [phone]) [phone] Evaluation note* Diagnosis Onset Date Resolution Status Admit Date Left breast mass acute February 2:35pm Status post placement of implantable loop recorder chronic February 242024 2:35pm Left breast mass acute February 2:10pm Left breast mass acute February 2:11pm Invasive lobular carcinoma o f breast in female acute March 22, 2025 8:07am Invasive lobular carcinoma o f breast in female acute March 28, 2025 9:22am Left breast mass acute March 9:22am Invasive lobular carcinoma o f breast in female acute April 10, 2025 6:59am Left breast mass acute March 6:59am [facility] Work Phone: 1(548) 739-343806-08-2025 History and physical note Author Kameron Gamez [facility] Note Date/Time March 03, 2025 6:23a m [facility] Medical Records Department [address] [place] [id number] History & Physical Exam 02/28/25 1333 MR#: [id number] Acct: [id number] Name: BERRY ABAD JOVANA Rep #:[id number] : 1945 79 From: Kameron Gamez MD PCP: Dr. Aria Sanchez MD [place] [facility] [place] [facility] History and Physical Date of Admission: 03/18/25 This is a pleasant 79-year-old lady who presents to the cardiac labor relations manager for a loop recorder explant. She was previously seen for concerns of falling. This is the third episode of a significant fall with a head injury that she has had in [facility]. She was sitting down and got up and then appeared to be a little confusedand had a significant fall. She actually injured her neck and her head she underwent a CAT scan which did not demonstrate any significant abnormality. As you know she does have a history of hypertension, mild aortic stenosis, with herlast echocardiogram performed in June 2023 demonstrating ejection fraction of65% and a mean aortic valve gradient of 12 mmHg. She also has a chronic right bundle branch block. She has complained of some dizziness when she gets up quickly from the seated position and as you know she has had a history of remoteright breast mastectomy 1984. From a cardiac standpoint, the patient is doing well. She denies any palpitations, chest pain, pressure or heaviness. She denies SOB, Orthopnea, and PND. She does not have bleeding issues; no blood in urine, stool or nosebleeds. She denies any decrease in energy level, myalgias, or claudication. She does not have edema, or sudden weight gain. She denies dizziness, lightheadedness, syncopal or near syncopal episodes, and headaches. Intake Vital Signs See EMR Allergies See EMR Medications See EMR [facility] Medical History Laceration of left middle finger Status post placement of implantable loop recorder Syncope and collapse Chest tightness Non-rheumatic aortic stenosis Subdural hemorrhage Hematoma of scalp Fall Syncope Right bundle branch block (RBBB) GERD (gastroesophageal reflux disease) Cancer of right breast Hyperlipidemia Arthritis Essential (primary) hypertension Surgical History History of breast reconstruction H/O section History of appendectomy History of mastectomy Family History Brother , age 49 Cancer lung Social History Smoking Status: Former smoker quit date: 09/26/04 pack-years: 40 Tobacco: How many years used: 40 how long ago did patient quit smokin years ago second hand exposure: Yes alcohol intake: current alcohol intake frequency: 0-2 drinks per day Alcohol type: wine ROS Const Const: Negative for fatigue, weakness, fever(s), headache(s), chills, frequent falls, weight gain or weight loss Eyes Eyes: Negative for blind spots, loss of peripheral vision, transient loss of vision, blurry vision, change in vision, double vision, floaters or tunnel vision ENT ENT: Negative for headache(s), dizziness, Nosebleed/epistaxis, balance problems or neck pain Cardio Chest Pain: No Palpitations: No Edema: None Muscle aches with walking: None Resp Respiratory: Negative for SOB with activity, SOB at rest or SOB orthopneaundefinedSOB lying down GI GI: Negative nausea, vomiting, heartburn, bloating, vomiting blood/hematemesis, bright, red blood in stools or black,tarry stools Musc Musc: Negative for muscle aches/ myalgia, muscle weakness, joint pain or balanceproblems Neuro Neuro: Negative for dizziness, lightheadedness, near syncope, syncope, orthostatic symptoms, frequent falls, headache(s), weakness, blurry vision or double vision Timoteo Hematologic/Lymphatic: Negative for easy bleeding or easy bruising Endo Endo: Negative for fatigue Cardiology Exam Const Appearance: cooperative, healthy appearing, no acute distress, well developed and well groomed Nutritional Appearance: average body habitus and well nourished Orientation: alert, awake and oriented x3 Head Head: normal to inspection, normocephalic and atraumatic Ears: hearing grossly normal bilaterally and external ears normal Nose: external nose normal and nares normal Face and Sinus: face symmetric Eyes General: appearance normal, both eyes and all related structures Eyelids: eyelids normal Conjunctivae: conjunctivae normal Pupils: PERRL, normal by confrontation and accommodation normal EOM: EOM intact bilaterally Neck Neck: normal visual inspection, trachea midline and no JVD JVD: +5 Carotids: normal carotid upstroke and bounding pulses Chest Chest inspection: normal inspection of the chest, symmetric chest movement and normal respiratory effort Auscultation: Bilateral: Clear to Auscultation Cardio Palpation: normal PMI Rate: regular rate Rhythm: regular rhythm Heart sounds: S1 normal, S2 normal, murmur and normal, physiologic split S2; Negative rub or gallop Murmur: Grade 2/6, soft and EMMANUEL loudest primary aortic area GI GI: normal to inspection and soft Neuro General: patient alert, patient awake, patient oriented x3, gait normal, moves all extremities and no focal sensory deficit Skin Skin: no rashes or lesions noted Extremities Pulses: Normal: Right Posterior Tibial Pulse, Left Posterior Tibial Pulse, RightRadial Pulse and Left Radial Pulse Lower Extremity Edema: None: Bilateral Musculoskel Musculoskeletal: No joint tenderness Psych Psychological: normal affect Supplemental Info Supplemental Information Echocardiogram 04/02/2024: Interpretation Summary Normal LV size. Left ventricular systolic function is normal. The left ventricular ejection fraction is 55 %. Stage 1 diastolic dysfunction. Contrast injection was performed. Echocardiogram 07/13/23 Interpretation Summary Normal LV size. Left ventricular systolic function is normal. The estimated ejection fraction is 65 %. Stage 1 diastolic dysfunction. Mild focal aortic valve calcification. Mean aortic valve gradient 12 mmHg. Echocardiogram 06/23/2020: Normal LV size. Left ventricular systolic function is normal. The estimated ejection fraction is 65 %. Stage 1 diastolic dysfunction. Contrast injection was performed. Stress Test 06/23/2020: Conclusion: Exercise myocardial perfusion stress test with no evidence of ischemia noted at a high workload. No clinical angina noted. Preserved ejection fraction. Assessment and Plan Assessment and Plan (1) Status post placement of implantable loop recorder: Status: Acute Comment: Pfeiffer ILR implanted [facility] on 03/20/24 Plan: Patient was recently diagnosed with breast cancer, and will be undergoing a mastectomy. She would like to have her loop recorder explanted prior to this. 03/03/25 0623 <Electronically signed by Kameron Gamez MD> Cosigner Signature (if applicable): 02/28/25 1337 <Electronically signed by Alka THORPE> CC: ILA Kaur; Dr. Kameron Gamez MD; Dr. Aria Sanchez MD~ Signed [facility] Work Phone: [phone] [phone] History and physical note [facility] Medical Records Department [address] [place] [address] History & Physical Exam 02/28/25 1333 MR#: [id number] Acct: [id number] Name: BERRY ABAD JOVANA Rep #:[id number] : 1945 79 From: Kameron Gamez MD PCP: Dr. Aria Sanchez MD [place] [facility] [place] [facility] History and Physical Date of Admission: 03/18/25 This is a pleasant 79-year-old lady who presents to the cardiac labor relations manager for a loop recorder explant. She was previously seen for concerns of falling. This is the third episode of a significant fall with a head injury that she has had in [facility]. She was sitting down and got up and then appeared to be a little confusedand had a significant fall. She actually injured her neck and her head she underwent a CAT scan which did not demonstrate any significant abnormality. As you know she does have a history of hypertension, mild aortic stenosis, with herlast echocardiogram performed in June 2023 demonstrating ejection fraction of65% and a mean aortic valve gradient of 12 mmHg. She also has a chronic right bundle branch block. She has complained of some dizziness when she gets up quickly from the seated position and as you know she has had a history of remoteright breast mastectomy 1984. From a cardiac standpoint, the patient is doing well. She denies any palpitations, chest pain, pressure or heaviness. She denies SOB, Orthopnea, and PND. She does not have bleeding issues; no blood in urine, stool or nosebleeds. She denies any decrease in energy level, myalgias, or claudication. She does not have edema, or sudden weight gain. She denies dizziness, lightheadedness, syncopal or near syncopal episodes, and headaches. Intake Vital Signs See EMR Allergies See EMR Medications See EMR [facility] Medical History Laceration of left middle finger Status post placement of implantable loop recorder Syncope and collapse Chest tightness Non-rheumatic aortic stenosis Subdural hemorrhage Hematoma of scalp Fall Syncope Right bundle branch block (RBBB) GERD (gastroesophageal reflux disease) Cancer of right breast Hyperlipidemia Arthritis Essential (primary) hypertension Surgical History History of breast reconstruction H/O section History of appendectomy History of mastectomy Family History Brother , age 49 Cancer lung Social History Smoking Status: Former smoker quit date: 09/26/04 pack-years: 40 Tobacco: How many years used: 40 how long ago did patient quit smokin years ago second hand exposure: Yes alcohol intake: current alcohol intake frequency: 0-2 drinks per day Alcohol type: wine ROS Const Const: Negative for fatigue, weakness, fever(s), headache(s), chills, frequent falls, weight gain or weight loss Eyes Eyes: Negative for blind spots, loss of peripheral vision, transient loss of vision, blurry vision,change in vision, double vision, floaters or tunnel vision ENT ENT: Negative for headache(s), dizziness, Nosebleed/epistaxis, balance problems or neck pain Cardio Chest Pain: No Palpitations: No Edema: None Muscle aches with walking: None Resp Respiratory: Negative for SOB with activity, SOB at rest or SOB orthopneaundefinedSOB lying down GI GI: Negative nausea, vomiting, heartburn, bloating, vomiting blood/hematemesis, bright, red blood in stools or black,tarry stools Musc Musc: Negative for muscle aches/ myalgia, muscle weakness, joint pain or balanceproblems Neuro Neuro: Negative for dizziness, lightheadedness, near syncope, syncope, orthostatic symptoms, frequent falls, headache(s), weakness, blurry vision or double vision Timoteo Hematologic/Lymphatic: Negative for easy bleeding or easy bruising Endo Endo: Negative for fatigue Cardiology Exam Const Appearance: cooperative, healthy appearing, no acute distress, well developed and well groomed Nutritional Appearance: average body habitus and well nourished Orientation: alert, awake and oriented x3 Head Head: normal to inspection, normocephalic and atraumatic Ears: hearing grossly normal bilaterally and external ears normal Nose: external nose normal and nares normal Face and Sinus: face symmetric Eyes General: appearance normal, both eyes and all related structures Eyelids: eyelids normal Conjunctivae: conjunctivae normal Pupils: PERRL, normal by confrontation and accommodation normal EOM: EOM intact bilaterally Neck Neck: normal visual inspection, trachea midline and no JVD JVD: +5 Carotids: normal carotid upstroke and bounding pulses Chest Chest inspection: normal inspection of the chest, symmetric chest movement and normal respiratory effort Auscultation: Bilateral: Clear to Auscultation Cardio Palpation: normal PMI Rate: regular rate Rhythm: regular rhythm Heart sounds: S1 normal, S2 normal, murmur and normal, physiologic split S2; Negative rub or gallop Murmur: Grade 2/6, soft and EMMANUEL loudest primary aortic area GI GI: normal to inspection and soft Neuro General: patient alert, patient awake, patient oriented x3, gait normal, moves all extremities and no focal sensory deficit Skin Skin: no rashes or lesions noted Extremities Pulses: Normal: Right Posterior Tibial Pulse, Left Posterior Tibial Pulse, RightRadial Pulse and Left Radial Pulse Lower Extremity Edema: None: Bilateral Musculoskel Musculoskeletal: No joint tenderness Psych Psychological: normal affect Supplemental Info Supplemental Information Echocardiogram 04/02/2024: Interpretation Summary Normal LV size. Left ventricular systolic function is normal. The left ventricular ejection fraction is 55 %. Stage 1 diastolic dysfunction. Contrast injection was performed. Echocardiogram 07/13/23 Interpretation Summary Normal LV size. Left ventricular systolic function is normal. The estimated ejection fraction is 65 %. Stage 1 diastolic dysfunction. Mild focal aortic valve calcification. Mean aortic valve gradient 12 mmHg. Echocardiogram 06/23/2020: Normal LV size. Left ventricular systolic function is normal. The estimated ejection fraction is 65 %. Stage 1 diastolic dysfunction. Contrast injection was performed. Stress Test 06/23/2020: Conclusion: Exercise myocardial perfusion stress test with no evidence of ischemia noted at a high workload. No clinical angina noted. Preserved ejection fraction. Assessment and Plan Assessment and Plan (1) Status post placement of implantable loop recorder: Status: Acute Comment: Margarette MARTINEZ implanted [facility] on 03/20/24 Plan: Patient was recently diagnosed with breast cancer, and will be undergoing a mastectomy. She would like to have her loop recorder explanted prior to this. 03/03/25622 Cosigner Signature (if applicable): 02/28/25 1337 CC: ILA Kaur; Dr. Kameron Gamez MD; Dr. Aria Sanchez MD~ Signed [facility]06-05-2025 [facility] Medical Records Department [address] [place] [address] History Physical Exam 02/28/25 1333 MR#: [id number] Acct: [id number] Name: BERRY ABAD JOVANA Rep #: [id number] : 1945 79 From: Kameron Gamez MD PCP: Dr. Aria Sanchez MD [place] [facility] [facility] History and Physical Date of Admission: 03/18/25 This is a pleasant 79-year-old lady who presents to the cardiac labor relations manager for a loop recorder explant. She was previously seen for concerns of falling. This is the third episode of a significant fall with a head injury that she has had in a year. She was sitting down and got up and then appeared to be a little confused and had a significant fall. She actually injured her neck and her head she underwent a CAT scan which did not demonstrate any significant abnormality. As you know she does have a history of hypertension, mild aortic stenosis, with her last echocardiogram performed in June 2023 demonstrating ejection fraction of 65% and a mean aortic valve gradient of 12 mmHg. She also has a chronic right bundle branch block. She has complained of some dizziness when she gets up quickly from the seated position and as you know she has had a history of remote right breast mastectomy 1984. From a cardiac standpoint, the patient is doing well. She denies any palpitations, chest pain, pressure or heaviness. She denies SOB, Orthopnea, and PND. She does not have bleeding issues; no blood in urine, stool or nosebleeds. She denies any decrease in energy level, myalgias, or claudication. She does not have edema, or sudden weight gain. She denies dizziness, lightheadedness, syncopal or near syncopal episodes, and headaches. Intake Vital Signs See EMR Allergies See EMR Medications See EMR [facility] Medical History Laceration of left middle finger Status post placement of implantable loop recorder Syncope and collapse Chest tightness Non-rheumatic aortic stenosis Subdural hemorrhage Hematoma of scalp Fall Syncope Right bundle branch block (RBBB) GERD (gastroesophageal reflux disease) Cancer of right breast Hyperlipidemia Arthritis Essential (primary) hypertension Surgical History History of breast reconstruction H/O section History of appendectomy History of mastectomy Family History Brother , age 49 Cancer lung Social History Smoking Status: Former smoker quit date: 09/26/04 pack-years: 40 Tobacco: How many years used: 40 how long ago did patient quit smokin years ago second hand exposure: Yes alcohol intake: current alcohol intake frequency: 0-2 drinks per day Alcohol type: wine ROS Const Const: Negative for fatigue, weakness, fever(s), headache(s), chills, frequent falls, weight gain or weight loss Eyes Eyes: Negative for blind spots, loss of peripheral vision, transient loss of vision, blurry vision, change in vision, double vision, floaters or tunnel vision ENT ENT: Negative for headache(s), dizziness, Nosebleed/epistaxis, balance problems or neck pain Cardio Chest Pain: No Palpitations: No Edema: None Muscle aches with walking: None Resp Respiratory: Negative for SOB with activity, SOB at rest or SOB orthopnea SOB lying down GI GI: Negative nausea, vomiting, heartburn, bloating, vomiting blood/hematemesis, bright, red blood in stools or black,tarry stools Musc Musc: Negative for muscle aches/ myalgia, muscle weakness, joint pain or balance problems Neuro Neuro: Negative for dizziness, lightheadedness, near syncope, syncope, orthostatic symptoms, frequent falls, headache(s), weakness, blurry vision or double vision Timoteo Hematologic/Lymphatic: Negative for easy bleeding or easy bruising Endo Endo: Negative for fatigue Cardiology Exam Const Appearance: cooperative, healthy appearing, no acute distress, well developed and well groomed Nutritional Appearance: average body habitus and well nourished Orientation: alert, awake and oriented x3 Head Head: normal to inspection, normocephalic and atraumatic Ears: hearing grossly normal bilaterally and external ears normal Nose: external nose normal and nares normal Face and Sinus: face symmetric Eyes General: appearance normal, both eyes and all related structures Eyelids: eyelids normal Conjunctivae: conjunctivae normal Pupils: PERRL, normal by confrontation and accommodation normal EOM: EOM intact bilaterally Neck Neck: normal visual inspection, trachea midline and no JVD JVD: +5 Carotids: normal carotid upstroke and bounding pulses Chest Chest inspection: normal inspection of the chest, symmetric chest movement and normal respiratory effort Auscultation: Bilateral: Clear to Auscultation Cardio Palpation: normal PMI Rate: regular rate Rhythm: regular rhythm Heart sounds: S1 normal, S2 normal, murmur and normal, physiol (more content not included)...[facility]05-28-2025 Radiology Diagnostic study note [facility] Imaging Services [address] [place] [address] [phone] Breast Complete Unilateral MR#: [id number] Acct: [id number] Name: BERRY ABAD JOVANA Rep #: [id number] : 1945 F 79 From: Kirsten Wilson MD PCP: Dr. Aria Sanchez MD Status: REG CLI Study:Breast Complete Unilateral Date of Exam : 02/20/25 Exam# [id number] Ordering Dr: Jaylon Sanchez MD PROCEDURE: BREAST COMPLETE UNILATERAL 02/20/2025 REASON FOR EXAM: 79-year-old female recalled for screening for a left breast mass on examination of 02/15/2025. Personal history of right breast cancer status post mastectomy in 1983 with reconstruction and implant. COMPARISON: 02/15/2025, 02/15/2024, 11/15/2022 TECHNIQUE: Targeted left breast ultrasound. FINDINGS: ULTRASOUND: Ultrasound was targeted to the left breast. Follow-up examination performed for the irregular left breast mass in the upper- outer quadrant on examination of 02/15/2025. On the present examination, there is an irregular hypoechoic mass in the left breast at 1 o'clock 6 cmfrom the nipple measuring 0.9 x 0.8 x 0.5 cm. There is vascular flow seen adjacent to the mass. The remainder of the left breast was imaged demonstrating no additional suspicious sonographic findings. There is no left axillary lymphadenopathy. US/Breast Complete Unilateral IMPRESSION: Suspicious left breast mass at 1 o'clock 6 cm from the nipple requires further evaluation. Recommend tissue sampling with ultrasound-guided core needle biopsy. BI-RADS 5: HIGHLY SUGGESTIVE OF MALIGNANCY. Reading Location: [id number] CC: Dr. Aria Sanchez MD ~ Industrial Machine Assembler: Signed [facility]08-15-2024 History of Present illness Narrative* Radha Mosley APRN.CNP - 05/10/2024 3:30 PM EDT NEUROSURGERY TELEPHONE VISIT PROGRESS NOTE Radha Mosley APRN.MAGDALENA This is a telephone encounter initiated for an established patient, parent or guardian not originating from a related Evaluation & Management service provided within the previous 7 days nor leading to an Evaluation & Management service or procedure within the next 24 hours or soonest available appointment. Date of visit: May 10, 2024 Patient Name: Ms.Patricia Abad Date of : 1945 Current Age: [age] year old MRN/E# [id number] Last Office Visit: 04/12/2024 Ms.Patricia Abad has consented to this telephone encounter. PERSONS PRESENT: patient CHIEF COMPLAINT: Patient presents with: Follow Up HPI: The patient presents via telephone for a follow up with imaging (CT B) for evaluation. This is a 78-year-old female with a PMHx of HTN and breast CA who was seen for consult at [facility] on 03/09/[address] Bagley. She presented as a trauma transfer after a ground-level fall with imaging showing a right parietal SDH with no MLS. She denied any LOC but reported being amnesic to the event. No neurosurgical intervention was indicated. She was monitored in the ICU with frequent neurochecks and serialimaging. She was placed on a short course of Keppra. Once imaging stabilized no surgical intervention was ultimately warranted. Recommendation was to follow-up in [address] and to hold all blood thinning medications. She was last seen in the office on 04/12/2024 and reported that she was overall doing well. She denied any specific complaints or concerns since discharge. She did report symptoms of numbness to the left middle finger and hand following her return to home had resolved by her office visit. Neurologically she was intact on exam without focal deficit. CT was reviewed and compared to previous scans and showed evolution with reduction in size of the right cerebral convexity subdural hemorrhage. Therewas no evidence of acute hemorrhage noted. Given this finding she was advised to continue to hold all blood thinning medications and follow-up in 3 to 4 weeks with a repeat CT prompting her visit today. Since last visit she states she is overall doing well and denies any specific complaints or concerns. She states that she is neurologically back at her baseline. She presents via telephone for image review, evaluation and plan of care. PREVIOUS SURGERY: None SURGICAL RISK: Smoker: Former -quit 09/26/2001 Diabetic: No Anticoagulants / Antiplatelets: No Occupation: Retired Current Outpatient Medications Medication Sig Dispense Refill atorvastatin (LIPITOR) 40 mg tablet Take 40 mg by mouth daily at bedtime. levothyroxine 25 mcg cap Take 25 mcg by mouth daily before breakfast. Benzonatate 200 mg capsule Take 200 mg by mouth as needed for cough. KRILL OIL ORAL Take 1 capsule by mouth daily at bedtime. famotidine/Ca carb/mag hydrox (PEPCID COMPLETE ORAL) Take 1 tablet by mouth at bedtime as needed (heartburn). MELATONIN ORAL Take by mouth. metoprolol succinate XL, long acting, (TOPROL XL) 50 mg ORAL 24 hr tablet Take 1 tablet by mouth once daily. 0 CENTRUM SILVER TAB Take one(1) tablet daily. 0 No current facility-administered medications for this visit. REVIEW OF SYSTEMS: Review of Systems Constitutional: Negative for chills, diaphoresis (Negative for night sweats.) and fever. HENT: Negative for ear discharge and rhinorrhea. Eyes: Negative for discharge. Respiratory: Negative for cough, shortness of breath and wheezing. Cardiovascular: Negative for chest pain, palpitations and leg swelling. Gastrointestinal: Negative for constipation, diarrhea, nausea and vomiting. Endocrine: Negative for cold intolerance and heat intolerance. Genitourinary: Negative for frequency. Negative for urinary incontinence and urinary retention. Musculoskeletal: Negative for back pain, joint swelling, myalgias and neck pain. Skin: Negative for rash (Negative for hives and skin lesions.). Allergic/Immunologic: Negative for environmental allergies and food allergies. Negative for contact allergy, seasonal allergies. Neurological: Negative for dizziness, seizures, syncope, weakness, light- headedness, numbness (Negative for numbness in extremities.) and headaches. Hematological: Does not bruise/bleed easily. Psychiatric/Behavioral: The patient is not nervous/anxious. Negative for depression. IMAGING: CT Brain WO IVCON performed on 05/07/2024 demonstrates: IMPRESSION: Almost complete interval resolution of the right convexity subdural hematoma with minimal residual as described. No significant mass effect. No new acute intracranial hemorrhage. ASSESSMENT/PLAN: (S06.5XAA) Subdural hematoma (HCC) (primary encounter diagnosis) Comment: Spoke to the patient via telephone. She has a follow-up with a repeat CT B. She reports that she is overall doing well and denies any specific complaints or concerns. She states that she is back to her baseline and is participating in her normal ADLs. I reviewed her CT and compared to prior scans. I discussed that there is almost complete resolution of the right convexity subdural hematoma per the radiology report with minimal residual. I discussed that I am not impressed with this small residual region and that no further imaging is necessary. She is asymptomatic and not taking any blood thinning medications. I discussed that she should follow-up with me either in person or via telephone in 3 months for a routine evaluation. In the interim should she develop any new or concerning issues I told her to please feel free to contact the office and if indicated she should present tothe ED for further evaluation. All of her questions and concerns were addressed in detail. Plan: 3-month follow-up AZEEM Tan Neurosurgery Nurse Practitioner [facility] FOLLOW UP: Return in about 3 months (around 08/10/2024) for Routine visit. I have communicated my name and active licensure. The patient's identity and physical location wereverified at the time of this visit. Either the patient or their legal retention representative has been informed of the risks and benefits of -- and alternatives to -- treatment through a remote evaluation andconsents to proceed with the evaluation remotely. Time spent: 5-10 minutes Please Note: This note has been partially generated using [employer], a speech recognition software program, and may contain errors including punctuation, grammar, spelling, gender, and inappropriate words or phrases that pertain to the system. documented in this encounterAshtabula General Hospital08-15-[facility]24 NoteHNO ID: [id number] Author: RADHA MOSLEY APRN.CNP Service: ? Author Type: Nurse Practitioner Type: Progress Notes Filed: 05/10/2024 15:50 Note Text: NEUROSURGERY TELEPHONE VISIT PROGRESS NOTE Radha Mosley APRN.CNP This is a telephone encounter initiated for an established patient, parent or guardian not originating from a related Evaluation AND Management service provided within the previous 7 days nor leading to an Evaluation AND Management service or procedure within the next 24 hours or soonest available appointment. Date of visit: May 10, 2024 Patient Name: Ms.Patricia Abad Date of : 1945 Current Age: [age] year old MRN/E# [id number] Last Office Visit: 04/12/2024 Ms.Patricia Abad has consented to this telephone encounter. PERSONS PRESENT: patient CHIEF COMPLAINT: Patient presents with: Follow Up HPI: The patient presents via telephone for a follow up with imaging (CT B) for evaluation. This is a 78-year-old female with a PMHx of HTN and breast CA who was seen for consult at [facility] on 03/09/[address] Bagley. She presented as a trauma transfer after a ground-level fall with imaging showing a right parietal SDH with no MLS. She denied any LOC but reported being amnesic to the event. No neurosurgical intervention was indicated. She was monitored in the ICU with frequent neurochecks and serial imaging. She was placed on a short course of Keppra. Once imaging stabilized no surgical intervention was ultimately warranted. Recommendation was to follow-up in [address] and to hold all blood thinning medications. She was last seen in the office on 04/12/2024 and reported that she was overall doing well. She denied any specific complaints or concerns since discharge. She did report symptoms of numbness to the left middle finger and hand following her return to home had resolved by her office visit. Neurologically she was intact on exam without focal deficit. CT was reviewed and compared to previous scans and showed evolution with reduction in size of the right cerebral convexity subdural hemorrhage. There was no evidence of acute hemorrhage noted. Given this finding she was advised to continue to hold all blood thinning medications and follow-up in 3 to 4 weeks with a repeat CT prompting her visit today. Since last visit she states she is overall doing well and denies any specific complaints or concerns. She states that she is neurologically back at her baseline. She presents via telephone for image review, evaluation and plan of care. PREVIOUS SURGERY: None SURGICAL RISK: Smoker: Former -quit 09/26/2001 Diabetic: No Anticoagulants / Antiplatelets: No Occupation: Retired Current Outpatient Medications Medication Sig Dispense Refill atorvastatin (LIPITOR) 40 mg tablet Take 40 mg by mouth daily at bedtime. levothyroxine 25 mcg cap Take 25 mcg by mouth daily before breakfast. Benzonatate 200 mg capsule Take 200 mg by mouth as needed for cough. KRILL OIL ORAL Take 1 capsule by mouth daily at bedtime. famotidine/Ca carb/mag hydrox (PEPCID COMPLETE ORAL) Take 1 tablet by mouth at bedtime as needed (heartburn). MELATONIN ORAL Take by mouth. metoprolol succinate XL, long acting, (TOPROL XL) 50 mg ORAL 24 hr tablet Take 1 tablet by mouth once daily. 0 CENTRUM SILVER TAB Take one(1) tablet daily. 0 No current facility-administered medications for this visit. REVIEW OF SYSTEMS: Review of Systems Constitutional: Negative for chills, diaphoresis (Negative for night sweats.) and fever. HENT: Negative for ear discharge and rhinorrhea. Eyes: Negative for discharge. Respiratory: Negative for cough, shortness of breath and wheezing. Cardiovascular: Negative for chest pain, palpitations and leg swelling. Gastrointestinal: Negative for constipation, diarrhea, nausea and vomiting. Endocrine: Negative for cold intolerance and heat intolerance. Genitourinary: Negative for frequency. Negative for urinary incontinence and urinary retention. Musculoskeletal: Negative for back pain, joint swelling, myalgias and neck pain. Skin: Negative for rash (Negative for hives and skin lesions.). Allergic/Immunologic: Negative for environmental allergies and food allergies. Negative for contact allergy, seasonal allergies. Neurological: Negative for dizziness, seizures, syncope, weakness, light-headedness, numbness (Negative for numbness in extremities.) and headaches. Hematological: Does not bruise/bleed easily. Psychiatric/Behavioral: The patient is not nervous/anxious. Negative for depression. IMAGING: CT Brain WO IVCON performed on 05/07/2024 demonstrates: IMPRESSION: Almost complete interval resolution of the right convexity subdural hematoma with minimal residual as described. No significant mass effect. No new acute intracranial hemorrhage. ASSESSMENT/PLAN: (S06.5XAA) Subdural hematoma (HCC) (primary encounter diagnosis) (more content not included)...[facility]08-12-2024 History of Present illness Narrative* Alyse Denny RT(R) - 05/07/2024 11:00 AM EDT Radiology Service Progress Note PATIENT NAME: Berry Abad DATE OF SERVICE: May 07, 2024 TIME: 2:00 PM PATIENT IDENTITY VERIFICATION COMPLETED USING TWO (2) IDENTIFIERS: Name and Date of confirmedby patient verbally. FALL SCREENING: Has the patient had 2 falls in the last year or 1 fall with injury or currently using an Ambulatory Assistive Device (Walker, Cane, Wheelchair, Crutches, etc.)? No PATIENT GENDER DATA: Female. status: : No status: NO. PATIENT RELEVANT IMPLANT DATA REVIEWED: Yes PATIENT PRESENTS WITH AN IMPLANTABLE OR ATTACHED MEDICAL STAFF DIRECTOR: No RADIOLOGY DEPARTMENT: CT; Exam(s) Completed: Brain PERIPHERAL IV DATA: Not applicable SIGNED BY: RT Nick(Elisa) May 07, 2024 2:00 PM documented in this encounterAshtabula [facility] Hospital08-12-2024 NoteHNO ID: [id number] Author: ALYSE DENNY RT(Elisa) Service: ? Author Type: Senior Director Type: Progress Notes Filed: 05/07/2024 14:00 Note Text: Radiology Service Progress Note PATIENT NAME: Berry Abad DATE OF SERVICE: May 07, 2024 TIME: 2:00 PM PATIENT IDENTITY VERIFICATION COMPLETED USING TWO (2) IDENTIFIERS: Name and Date of confirmed by patient verbally. FALL SCREENING: Has the patient had 2 falls in the last year or 1 fall with injury or currently using an Ambulatory Assistive Device (Walker, Cane, Wheelchair, Crutches, etc.)? No PATIENT GENDER DATA: Female. status: : No status: NO. PATIENT RELEVANT IMPLANT DATA REVIEWED: Yes PATIENT PRESENTS WITH AN IMPLANTABLE OR ATTACHED MEDICAL STAFF DIRECTOR: No RADIOLOGY DEPARTMENT: CT; Exam(s) Completed: Brain PERIPHERAL IV DATA: Not applicable SIGNED BY: RT Nick(R) May 07, 2024 2:00 [facility]07-18-2024 History of Present illness Narrative* Radha Mosley APRN.CNP - 04/12/2024 11:30 AM EDT NEUROSURGERY FOLLOW UP OFFICE NOTE Radha Mosley APRN.CNP Date of visit: April 12, 2024 Patient Name: Ms.Patricia Abad Date of : 1945 Current Age: [age] year old Sex: female MRN/E# [id number] Last Office Visit: Hospital follow-up CHIEF COMPLAINT: Patient presents with: Established Patient HPI: The patient presents for a hospital follow up with imaging (CT B) for evaluation. This is a 78-year-old female with a PMHx of HTN and breast CA who was seen for consult at [facility] on 03/09/[address] Bagley. She presented as a trauma transfer after a ground-level fall with imaging showing a right parietal SDH with no MLS. She denied any LOC but reported being amnesic to the event. No neurosurgical intervention was indicated. She was monitored in the ICU with frequent neurochecks and serial imaging. She was placed on a short course of Keppra. Once imaging stabilized no surgical intervention was ultimately warranted. Recommendation was to follow-up in [address] and to hold all blood thinning medications. Today she states she is doing well and denies any specific complaints or concerns. Following discharge from the hospital she was having episodes of numbness to the left middle finger and hand but this has resolved over the past 2 weeks. She presents for image review, evaluation and plan of care. SYMPTOMS: None PREVIOUS CONSERVATIVE TREATMENTS: Keppra -Short course PREVIOUS SURGERY: None SURGICAL RISK: Smoker: Former -quit 09/26/2001 Diabetic: No Anticoagulants / Antiplatelets: No Occupation: Retired PAIN EVALUATION No data found in the last 1 encounters. PAST MEDICAL HISTORY Diagnosis Date Essential hypertension, benign Generalized anxiety disorder Anxiety, Generalized Insomnia, unspecified Malignant neoplasm of breast (female), unspecified site 1983 Breast cancer, right breast Other and unspecified hyperlipidemia on Crestor PAST SURGICAL HISTORY Procedure Laterality Date APPENDECTOMY AGE 16 BREAST RECONSTRUCTION DELIVERY ONLY 1964, 1965, 1966 , low cervical COLONOSCOPY FLX DX W/COLLJ SPEC WHEN PFRMD 11/2004 Colonoscopy - repeat in 10 years. EXCISION GANGLION WRIST DORSAL/VOLAR PRIMARY right wrist MASTECTOMY 1988 RIGHT BREAST PAST SURGICAL HISTORY OF tumor removed buttock PAST SURGICAL HISTORY OF 11/27/08 reconstruction right breast - at [facility] - Dr. Henry Gandhi TONSILLECTOMY PRIMARY/SECONDARY <AGE 12 FAMILY HISTORY Problem Relation Age of Onset Heart Father age 77 Heart Paternal Aunt CVA Cancer Brother LUNG (smoker) other (HYPERLIPIDEMIA [Other]) Mother Alzheimer's Disease Mother age 54 - age 77 COPD Sister ALLERGIES Allergen Reactions Hctz [Hydrochloroth* NOT ALLERGIC - but got hypokalemia enough to cause irregular heart rate (per Dr. Gamez) Red Dye Zyban [Bupropion (S* Current Outpatient Medications Medication Sig Dispense Refill atorvastatin (LIPITOR) 40 mg tablet Take 40 mg by mouth daily at bedtime. levothyroxine 25 mcg cap Take 25 mcg by mouth daily before breakfast. Benzonatate 200 mg capsule Take 200 mg by mouth as needed for cough. KRILL OIL ORAL Take 1 capsule by mouth daily at bedtime. famotidine/Ca carb/mag hydrox (PEPCID COMPLETE ORAL) Take 1 tablet by mouth at bedtime as needed (heartburn). MELATONIN ORAL Take by mouth. metoprolol succinate XL, long acting, (TOPROL XL) 50 mg ORAL 24 hr tablet Take 1 tablet by mouth once daily. 0 CENTRUM SILVER TAB Take one(1) tablet daily. 0 No current facility-administered medications for this visit. REVIEW OF SYSTEMS: Review of Systems Constitutional: Negative for chills, diaphoresis (Negative for night sweats.) and fever. HENT: Negative for ear discharge and rhinorrhea. Eyes: Negative for discharge. Respiratory: Negative for cough, shortness of breath and wheezing. Cardiovascular: Negative for chest pain, palpitations and leg swelling. Gastrointestinal: Negative for constipation, diarrhea, nausea and vomiting. Endocrine: Negative for cold intolerance and heat intolerance. Genitourinary: Negative for frequency. Negative for urinary incontinence and urinary retention. Musculoskeletal: Negative for back pain, joint swelling, myalgias and neck pain. Skin: Negative for rash (Negative for hives and skin lesions.). Allergic/Immunologic: Negative for environmental allergies and food allergies. Negative for contact allergy, seasonal allergies. Neurological: Negative for dizziness, seizures, syncope, weakness, light- headedness, numbness (Negative for numbness in extremities.) and headaches. Hematological: Does not bruise/bleed easily. Psychiatric/Behavioral: The patient is not nervous/anxious. Negative for depression. OBJECTIVE: BP 130/81 Pulse 67 Resp 16 Ht 5' 5 (1.65m) Wt 146 lb 9.7 oz (66.5kg) SpO2 96% BMI 24.40 kg/(m^2). PHYSICAL EXAM: Mental State : Alert, memory function unremarkable. Attention span and concentration normal for patient's age. Speech normal, no receptive or expressive speech deficit. Recent and remote memory normal. Orientation : Oriented to person, place and time. Higher Cortical Function : Intact speech and language. Spontaneous speech and comprehension normal.Fund of knowledge intact for pt level of education. Cranial Nerves : II: No visual field cut no blurring, Makes and sustains eye contact III, IV, : Normal, no double vision or drooping. Pupils equal and reactive to light. Extraocularmuscles intact. No nystagmus V: Normal sensation on the face, normal jaw movements VII: No paresis on either side VIII: No gross hearing deficit IX: Good and equal shoulder shrugs XII: Tongue midline, no fasciculations Sensory: SILT. Normal Sensation in upper and lower extremities and trunk to touch and noxious stimuli. Motor: Normal muscle tone and bulk. No tremor or uncontrollable movements. No spasticity or tremor. Strength: Upper Extremities : R L Deltoid 5/5 5/5 Biceps 5/5 5/5 Triceps 5/5 5/5 Wrist Ext 5/5 5/5 Wrist Flx 5/5 5/5 Hand Int 5/5 5/5 Lower Extremities : Hip Flexors 5/5 5/5 Hip Extensors 5/5 5/5 Hip Abductors 5/5 5/5 Straight leg Neg Neg Ankle dorsiflex 5/5 5/5 Ankle Plantar 5/5 5/5 Reflexes : Biceps 2+ 2+ Triceps 2+ 2+ Wrist 2+ 2+ Patellar 2+ 2+ Achilles 2+ 2+ Cerebellar Function : Normal finger to nose. Normal rapid alternating movements. No ataxia. Negative Romberg. Gait and Station: Normal gait. No assistive device usage. Pulmonary: Lungs without cough, audible wheeze. Respirations unlabored. Cardiac: Regular rate and rhythm. No murmer, gallop or rub. DATA REVIEW: IMAGING STUDIES: CT Brain WO IVCON performed on 04/09/2024 demonstrates: IMPRESSION: Interval evolution and reduction in size and extent of the acute subdural hemorrhage overlying the right cerebral convexity since 03/11/2024 with small residual chronic component overlying the right frontal convexity causing only mild mass effect on the underlying parenchyma as outlined above. Personal review of medical records: I reviewed with the patient, history, physical exam, the imagesand the chart. ASSESSMENT/PLAN: (S06.5XAA) Subdural hematoma (HCC) (primary encounter diagnosis) Comment: The patient presents with her for a hospital follow-up with CT B for evaluation. She was seen after a fall in which she sustained a right parietal SDH. No surgical intervention was indicated. Today she states she is overall doing well and denies any specific complaints or concerns.Neurologically she is intact on exam without focal deficit. CT was reviewed and compared to prior scans. This shows evolution with reduction in size of the right cerebral convexity subdural hemorrhage. There is no evidence of acute hemorrhage noted. Given this finding I told her to continue to holdall blood thinning medications and follow-up in 3 to [address] In the interim should she develop any new or concerning issues she should contact the office or present to the emergency department for further evaluation. All of their questions and concerns were addressed in detail Plan: CT BRAIN WO IVCON AZEEM Tan Neurosurgery Nurse Practitioner [facility] FOLLOW UP: Return in about 3 weeks (around 05/03/2024) for review of imaging and plan of care. Please Note: This note has been partially generated using [employer], a speech recognition software program, and may contain errors including punctuation, grammar, spelling, gender, and inappropriate words or phrases that pertain to the system. documented in this encounterAshtabula General Hospital07-18-2024 NoteHNO ID: [id number] Author: RADHA MOSLEY APRN.CNP Service: ? Author Type: Nurse Practitioner Type: Progress Notes Filed: 04/12/2024 12:34 Note Text: NEUROSURGERY FOLLOW UP OFFICE NOTE Radha Mosley APRN.CNP Date of visit: April 12, 2024 Patient Name: Ms.Patricia Abad Date of : 1945 Current Age: [age] year old Sex: female MRN/E# [id number] Last Office Visit: Hospital follow-up CHIEF COMPLAINT: Patient presents with: Established Patient HPI: The patient presents for a hospital follow up with imaging (CT B) for evaluation. This is a 78-year-old female with a PMHx of HTN and breast CA who was seen for consult at [facility] on 03/09/[address] Bagley. She presented as a trauma transfer after a ground-level fall with imaging showing a right parietal SDH with no MLS. She denied any LOC but reported being amnesic to the event. No neurosurgical intervention was indicated. She was monitored in the ICU with frequent neurochecks and serial imaging. She was placed on a short course of Keppra. Once imaging stabilized no surgical intervention was ultimately warranted. Recommendation was to follow-up in [address] and to hold all blood thinning medications. Today she states she is doing well and denies any specific complaints or concerns. Following discharge from the hospital she was having episodes of numbness to the left middle finger and hand but this has resolved over the past 2 weeks. She presents for image review, evaluation and plan of care. SYMPTOMS: None PREVIOUS CONSERVATIVE TREATMENTS: Keppra -Short course PREVIOUS SURGERY: None SURGICAL RISK: Smoker: Former -quit 09/26/2001 Diabetic: No Anticoagulants / Antiplatelets: No Occupation: Retired PAIN EVALUATION No data found in the last 1 encounters. PAST MEDICAL HISTORY Diagnosis Date Essential hypertension, benign Generalized anxiety disorder Anxiety, Generalized Insomnia, unspecified Malignant neoplasm of breast (female), unspecified site 1983 Breast cancer, right breast Other and unspecified hyperlipidemia on Crestor PAST SURGICAL HISTORY Procedure Laterality Date APPENDECTOMY AGE 16 BREAST RECONSTRUCTION DELIVERY ONLY 1964, 1965, 1966 , low cervical COLONOSCOPY FLX DX W/COLLJ SPEC WHEN PFRMD 11/2004 Colonoscopy - repeat in 10 years. EXCISION GANGLION WRIST DORSAL/VOLAR PRIMARY right wrist MASTECTOMY 1988 RIGHT BREAST PAST SURGICAL HISTORY OF tumor removed buttock PAST SURGICAL HISTORY OF 11/27/08 reconstruction right breast - at [facility] - Dr. Henry Gandhi TONSILLECTOMY PRIMARY/SECONDARY FAMILY HISTORY Problem Relation Age of Onset Heart Father age 77 Heart Paternal Aunt CVA Cancer Brother LUNG (smoker) other (HYPERLIPIDEMIA [Other]) Mother Alzheimer's Disease Mother age 54 - age 77 COPD Sister ALLERGIES Allergen Reactions Hctz [Hydrochloroth* NOT ALLERGIC - but got hypokalemia enough to cause irregular heart rate (per Dr. Gamez) Red Dye Zyban [Bupropion (S* Current Outpatient Medications Medication Sig Dispense Refill atorvastatin (LIPITOR) 40 mg tablet Take 40 mg by mouth daily at bedtime. levothyroxine 25 mcg cap Take 25 mcg by mouth daily before breakfast. Benzonatate 200 mg capsule Take 200 mg by mouth as needed for cough. KRILL OIL ORAL Take 1 capsule by mouth daily at bedtime. famotidine/Ca carb/mag hydrox (PEPCID COMPLETE ORAL) Take 1 tablet by mouth at bedtime as needed (heartburn). MELATONIN ORAL Take by mouth. metoprolol succinate XL, long acting, (TOPROL XL) 50 mg ORAL 24 hr tablet Take 1 tablet by mouth once daily. 0 CENTRUM SILVER TAB Take one(1) tablet daily. 0 No current facility-administered medications for this visit. REVIEW OF SYSTEMS: Review of Systems Constitutional: Negative for chills, diaphoresis (Negative for night sweats.) and fever. HENT: Negative for ear discharge and rhinorrhea. Eyes: Negative for discharge. Respiratory: Negative for cough, shortness of breath and wheezing. Cardiovascular: Negative for chest pain, palpitations and leg swelling. Gastrointestinal: Negative for constipation, diarrhea, nausea and vomiting. Endocrine: Negative for cold intolerance and heat intolerance. Genitourinary: Negative for frequency. Negative for urinary incontinence and urinary retention. Musculoskeletal: Negative for back pain, joint swelling, myalgias and neck pain. Skin: Negative for rash (Negative for hives and skin lesions.). Allergic/Immunologic: Negative for environmental allergies and food allergies. Negative for contact allergy, seasonal allergies. Neurological: Negative for dizziness, seizures, syncope, weakness, light-headedness, numbness (Negative for numbness in extremities.) and headaches. Hematological: Does not bruise/bleed easily. Psychiatric/Behavioral: The patient is not nervous/anxious. Negative for depression. OBJECTIVE: BP 130/ (more content not included)...[facility]07-15-2024 History of Present illness Narrative* Alyse Denny RT(R) - 04/09/2024 10:00 AM EDT Radiology Service Progress Note PATIENT NAME: Berry Abad DATE OF SERVICE: April 09, 2024 TIME: 4:05 PM PATIENT IDENTITY VERIFICATION COMPLETED USING TWO (2) IDENTIFIERS: Name and Date of confirmedby patient verbally. FALL SCREENING: Has the patient had 2 falls in the last year or 1 fall with injury or currently using an Ambulatory Assistive Device (Walker, Cane, Wheelchair, Crutches, etc.)? No PATIENT GENDER DATA: Female. status: : No status: NO. PATIENT RELEVANT IMPLANT DATA REVIEWED: Yes PATIENT PRESENTS WITH AN IMPLANTABLE OR ATTACHED MEDICAL STAFF DIRECTOR: No RADIOLOGY DEPARTMENT: CT; Exam(s) Completed: Brain PERIPHERAL IV DATA: Not applicable SIGNED BY: RT Nick(Elisa) April 09, 2024 4:05 PM documented in this encounterAshtabula General Hospital07-15-2024 NoteHNO ID: [id number] Author: ALYSE DENNY RT(R) Service: ? Author Type: Senior Director Type: Progress Notes Filed: 04/09/2024 16:05 Note Text: Radiology Service Progress Note PATIENT NAME: Berry Abad DATE OF SERVICE: April 09, 2024 TIME: 4:05 PM PATIENT IDENTITY VERIFICATION COMPLETED USING TWO (2) IDENTIFIERS: Name and Date of confirmed by patient verbally. FALL SCREENING: Has the patient had 2 falls in the last year or 1 fall with injury or currently using an Ambulatory Assistive Device (Walker, Cane, Wheelchair, Crutches, etc.)? No PATIENT GENDER DATA: Female. status: : No status: NO. PATIENT RELEVANT IMPLANT DATA REVIEWED: Yes PATIENT PRESENTS WITH AN IMPLANTABLE OR ATTACHED MEDICAL STAFF DIRECTOR: No RADIOLOGY DEPARTMENT: CT; Exam(s) Completed: Brain PERIPHERAL IV DATA: Not applicable SIGNED BY: RT Nick(R) April 09, 2024 4:05 [facility]06-17-2024 Miscellaneous Notes* Telephone Encounter - Anibal Marin - 03/12/2024 2:53 PM EDT Called patient, left detailed message regarding possibly scheduling an eval with our [facility] clinic. Awaiting callback. documented in this encounterAshtabula General Hospital06-17-2024 Telephone encounter Note * Telephone Encounter - Anibal Marin - 03/12/2024 2:53 PM EDT Called patient, left detailed message regarding possibly scheduling an eval with our [facility] clinic. Awaiting callback. [facility] Work Phone: [phone]) 529-279706-17-2024 NoteHNO ID: [id number] Author: YANDEL CRUZ, Research Coordinator Service: ? Author Type: Research Type: Progress Notes Filed: 03/12/2024 14:48 Note Text: Summary: IRB#[id number]: Traumatic Brain Injury Patient Registry - Consent Discussion Study #[id number]: Traumatic Brain Injury Patient Registry PI: John Raman MD Visit: Consent Visit Date: March 12, 2024 Patient Name: Berry Aabd Date of : 1945 MRN/E #: [id number] Patient approached for consideration for #[id number]: Traumatic Brain Injury Patient Registry. Eligibility confirmed by PI. Study explained/reviewed with patient. Study related follow-up requirements were discussed. Risks, benefits, alternatives, personnel, and costs of the study explained/reviewed. Patient provided informed consent for review. All the patient's study related questions were answered The patient verbalized understanding of the study, and stated that she was not interested in participating in the study at this time. Yandel Cruz, Research Coordinator Pager # [phone] [facility]06-16-2024 NoteHNO ID: [id number] Author: ARIS MARIN APRN.COLLEGE TUTOR Service: Neurosurgery Author Type: Nurse Practitioner Type: Progress Notes Filed: 03/11/2024 11:14 Note Text: Neurosurgery Progress Note SERVICE DATE: 03/11/2024 SUBJECTIVE: NAEON. Joy BRUNO/n/v OBJECTIVE: Vitals: Temp (24hrs), Av.7 ?C (98 ?F), Min:36.5 ?C (97.7 ?F), Max:36.8 ?C (98.3 ?F) BP 125/72 Pulse 84 Temp 36.5 ?C (97.7 ?F) (Oral) Resp 18 Ht 165.1 cm (5' 5) Wt 60.3 kg (132 lb 15 oz) SpO2 88% BMI 22.12 kg/m? O2 Therapy: Room Air IANDO: Date 03/10/24699 - 03/11/2465803/11/24699 - 03/12/24 0659 Shift 9511-6629 2420-2174 7019-0679 24 Hour Total 5992-3202 9020-7850 7479-8587 24 Hour Total INTAKE PO 240 240 PO 240 240 IV 50 50 Volume (mL) (cefTRIAXone iv piggyback 1 g in dextrose (iso-osmotic) 50 mL (ROCEPHIN)) 50 50 Shift Total 50 50 240 240 OUTPUT Urine 250 250 Void (ml) 250 250 Urine Not Saved. 2 x 2 x Shift Total 250 250 Weight (kg) 73.3 60.3 60.3 60.3 60.3 60.3 60.3 60.3 Medications: Current Facility-Administered Medications Medication Dose Route Frequency oxyCODONE IR 2.5-5 mg tab(s) (ROXICODONE) 2.5-5 mg ORAL q 6 H PRN levothyroxine 25 mcg tab(s) (SYNTHROID) 25 mcg ORAL DAILY (6 AM) metoprolol succinate ER 50 mg tab(s) (TOPROL XL) 50 mg ORAL DAILY ondansetron 4 mg tab(s) (ZOFRAN) 4 mg ORAL q 6 H PRN Or ondansetron (PF) 4 mg injection (ZOFRAN) 4 mg INTRAVENOUS q 6 H PRN acetaminophen 975 mg tab(s) (TYLENOL) 975 mg ORAL QID cefTRIAXone iv piggyback 1 g in dextrose (iso-osmotic) 50 mL (ROCEPHIN) 1 g INTRAVENOUS q 24 H NaCl 0.9% iv flush bag 20 mL INTRAVENOUS PRN levETIRAcetam 500 mg tab(s) (KEPPRA) 500 mg ORAL BID Labs: Recent Labs 03/11/24 0417 03/10/24 0432 03/09/24 2100 NA 140 140 139 K 3.9 4.4 4.2 CHLOR 106 106 104 CO2 25 24 24 BUN 11 12 11 CREAT 0.98* 0.91 0.94 GLUC 116* 113* 99 ANION 9 10 11 CA 8.7 8.5 9.1 MG -- 2.1 -- P -- 3.4 -- ALB -- -- 4.3 AST -- -- 33 ALT -- -- 28 ALKPHOS -- -- 86 TBILI -- -- 0.4 WBC 6.03 6.56 10.54 HB 11.8 12.6 14.1 HCT 36.1 38.4 42.3 PLT 170 198 245 INR -- -- 1.0 Imaging: CT BRAIN WO 03/11/2024 7:40 AM - Radiology, Oru In Impression IMPRESSION: Similar right cerebral convexity subdural hematoma. Associated mass effect without midline shift. No new acute findings. Exam: GENERAL: No distress, Alert NEURO: GCS 15 speech clear, fluent. Strength 5/5 all extremities. No FD no drift. HEENT: normocephalic LUNGS: Unlabored breathing CARDIAC: Regular rate and rhythm as above ABDOMEN: Soft, non-tender, non-distended EXTREMITIES: ESPINOZA, No deformities, No edema SKIN: Skin color, texture, turgor normal, No rashes or lesions ASSESSMENT AND PLAN: Active Hospital Problems Diagnosis Date Noted Subdural hematoma (HCC) 03/09/2024 Berry Abad is a 78 year old female syncopal fall found to have R parietal SDH - Neuro as above - CTH stable - 2wk follow up requested - D/c instructions placed - hold all OAC/antiplatelets Neurosurgery will sign off at this time. Please call with questions or concerns. Portions of text from this note were copied. All relevant information was reviewed and updated accordingly on 03/11/2024 SIGNATURE: Aris Marin APRN.CNP PATIENT NAME: Berry Abad DATE: March 11, 2024 TIME: 9:11 AM Pager: [phone] NoteHNO ID: [id number] Author: BC ANN APRN.CNP Service: General Surgery Author Type: Nurse Practitioner Type: Progress Notes Filed: 03/11/2024 15:47 Note Text: Trauma Surgery Progress Note SERVICE DATE: 03/11/2024 Trauma Service Pager: For questions or concerns Mon-Fri 6a-5p please page [phone]. After 5pm and on Weekends and Holidays, please page [phone] if in ICU or [phone] if on RNF. SUBJECTIVE: NAEON. Patient reports mild headache. UTI symptoms improved from yesterday. Awaiting PT/OT evals. OBJECTIVE: Vitals: Temp (24hrs), Av.7 ?C (98 ?F), Min:36.5 ?C (97.7 ?F), Max:36.8 ?C (98.3 ?F) BP 125/72 Pulse 84 Temp 36.5 ?C (97.7 ?F) (Oral) Resp 18 Ht 165.1 cm (5' 5) Wt 60.3 kg (132 lb 15 oz) SpO2 88% BMI 22.12 kg/m? O2 Therapy: Room Air IANDO: Date 03/10/24 0700 - 06/16/24 0659 03/11/24 07 - 03/12/24 0659 Shift [id number] 2468-9689 5019-7285 24 Hour Total [id number] 1929-4893 9775-1205 24 Hour Total INTAKE IV 50 50 Volume (mL) (cefTRIAXone iv piggyback 1 g in dextrose (iso-osmotic) 50 mL (ROCEPHIN)) 50 50 Shift Total 50 50 OUTPUT Urine 250 250 Void (ml) 250 250 Urine Not Saved. 2 x 2 x Shift Total 250 250 Weight (kg) 73.3 60.3 60.3 60.3 60.3 60.3 60.3 60.3 MEDICATIONS: Current Facility-Administered Medications Medication Dose Route Frequency oxyCODONE IR 2.5-5 mg tab(s) (ROXICODONE) 2.5-5 mg ORAL q 6 H PRN levothyroxine 25 mcg tab(s) (SYNTHROID) 25 mcg ORAL DAILY (6 AM) metoprolol succinate ER 50 mg tab(s) (TOPROL XL) 50 mg ORAL DAILY ondansetron 4 mg tab(s) (ZOFRAN) 4 mg ORAL q 6 H PRN Or ondansetron (PF) 4 mg injection (ZOFRAN) 4 mg INTRAVENOUS q 6 H PRN acetaminophen 975 mg tab(s) (TYLENOL) 975 mg ORAL QID cefTRIAXone iv piggyback 1 g in dextrose (iso-osmotic) 50 mL (ROCEPHIN) 1 g INTRAVENOUS q 24 H NaCl 0.9% iv flush bag 20 mL INTRAVENOUS PRN levETIRAcetam 500 mg tab(s) (KEPPRA) 500 mg ORAL BID Labs: Recent Labs 03/11/24 0417 03/10/24 0432 03/09/24 2100 NA 140 140 139 K 3.9 4.4 4.2 CHLOR 106 106 104 CO2 24 24 BUN 11 12 11 CREAT 0.98* 0.91 0.94 GLUC 116* 113* 99 ANION 9 10 11 CA 8.7 8.5 9.1 MG -- 2.1 -- P -- 3.4 -- ALB -- -- 4.3 AST -- -- 33 ALT -- -- 28 ALKPHOS -- -- 86 TBILI -- -- 0.4 WBC 6.03 6.56 10.54 HB 11.8 12.6 14.1 HCT 36.1 38.4 42.3 PLT 170 198 245 INR -- -- 1.0 PHYSICAL EXAM: Genl: Appears age appropriate. No acute distress. Resting comfortably. Head/Face: Normocephalic. Atraumatic. Eyes: EOMI. Sclera not icteric, not injected Resp: Lung sounds are clear bilat. No wheezes. No rales. Breathing is non-labored on RA @91%. CVS: RRR as above; 2+ pulses at RA, DP, PT bilat. GI: Abdomen is soft, non-tender, not distended. Bowel sounds normoactive. No peritonitis. MSK: Extremities without clubbing, cyanosis, edema. Normal ROM x 4. Skin: Warm and dry. Not jaundiced. Neuro: AANDOx3. Strength and sensation normal. ESPINOZA. GCS15. Psych: Normal mood. Normal affect. Appropriate insight into current situation. ASSESSMENT AND PLAN: Assessment Active Hospital Problems Diagnosis Date Noted Subdural hematoma (HCC) 03/09/2024 Fall 03/11/2024 Assessment: 78 year old female s/p GLF, transferred from [place] ED Imaging performed: CT HN, CXR/PXR (03/09) @ [place] CT brain x2 (03/10) CT brain (03/11) Traumatic Injuries: Right parietal subdural hematoma 3mm in thickness with minimal localized mass effect Right parietal superficial scalp hematoma without evidence of underlying fracture Left frontotemporal small scalp laceration and hematoma Operations/Procedures: 1. None Care Plan: SDH Neurosurgery consulted Non-op management Hold ASA (did not take day of trauma, no need for reversal) Keppra 500mg BID x7d UTI Symptomatic with dysuria Empiric rocephin Urine culture pending +ETOH Social work consult Continue home medications Current diet order: DIET REGULAR Pain regimen: Scheduled tylenol; prn oxycodone Bowel regimen: n/a Labs: As above PPX: DVT: Hold DVT ppx; SCDs, mobilize Ulcer: n/a Vit D level if > 65 yo: WNL Consulted Services: SICU Neurosurgery PT/OT MELTER HELPER Dispo Planning: PT/OT recs pending. Case management following. Incidentals: None Follow Up Needs: KAVON - Dr. Bagley in 2 weeks Staff Trauma Surgeon: Dr. Spence SIGNATURE: Bc Ann APRN.CNP PATIENT NAME: Berry Abad DATE: 03/11/2024 TIME: 3:46 PM Pager: see below Trauma Service Pager: For questions or concerns Mon-Fri 6a-5p please page [phone]. After 5pm and on Weekends and Holidays, please page [phone] if in ICU or [phone] if on RNF.[facility]06-15-2024 NoteHNO ID: [id number] Author: MONTY BAGLEY MD Service: Neurosurgery Author Type: Physician Type: Progress Notes Filed: 03/10/2024 09:37 Note Text: NS progress note - Feeling better this morning, mild headache, nausea CT shows some redistribution of R SDH along the convexity, moderate sized subgaleal and scalp hematoma Neurologically intact on exam Plan: - OK for floor from my standpoint - repeat CT brain tomorrow AM - plan for CT brain in 2 weeks in the office, hold all AP/AC until then - keppra x7 days - no plans for neurosurgical intervention Monty Bagley [facility]06-15-2024 NoteHNO ID: [id number] Author: NANNETTE DE LEON PA-C Service: Neurosurgery Author Type: Physician Manual Equipment Mechanic Type: Plan of Care Filed: 03/10/2024 00:19 Note Text: Neurosurgery Plan of Care Note: CTH demonstrates interval worsening of right convexity SDH, still without MLS. Final read pending Still no acute intervention indicated. Will order repeat 6 hour scan. Nannette De Leon PA-C Department of Neurosurgery Pager: [phone] [employer] Pager: [phone] March 10, 2024 12:17 [facility] noteNo assessment information availableWBluff[facility] Work Phone: Evaluation note* Diagnosis SDH (subdural hematoma) (HCC) Subdural hemorrhage documented in this encounter [facility] note* Diagnosis Subdural hematoma (HCC)- Primary Subdural hemorrhage documented in this encounter [facility] note* Diagnosis Subdural hematoma (HCC) Subdural hemorrhage documented in this encounter [facility] note* Diagnosis Subdural hematoma (HCC)- Primary [facility]dural [facility]No reason for referral information availableWBluffton Hospital Work Phone: Advance Directives No Advanced Directives Records Found Advance Directive Response Recorded Date/ Time Advance Directives Yes May 5:40pm Living Will Yes May 27 016 5:40pm Power of Hydro Station Supervisor Yes May 27, 2016 5:40pm Advance Directive Response Recorded Date/ Time Advance Directives Yes May 4:40pm Living Will Yes May 27 016 4:40pm Power of Hydro Station Supervisor Yes May 27, 2016 4:40pm Date Activated Date Inactivated Comments 03/10/2024 1:24 AM 03/12/2024 9:22 PM Question Answer Comments Full Code Order Discussed With: Patient Date Activated Date Inactivated Comments 03/10/2024 1:24 AM 03/12/2024 9:22 PM Question Answer Comments Full Code Order Discussed With: Patient Advance Directive Response Recorded Date/ Time Advance Directives Yes May 10, 2024 10:41am Advance Directive Response Recorded Date/ Time Advance Directives on File Yes March 18, 2025 11:00am Living Will Yes March 18, 2025 11:00am Do you have a Healthcare Power of Hydro Station Supervisor? Yes March 18, 2025 11:00am Name of Medical Power of Hydro Station Supervisor Davian Abad March 18, 2025 11:00am Advance Directives Yes March 18 11:00am Advance Directive Response Recorded Date/ Time Advance Directives on File Yes March 18, 2025 11:00am Living Will Yes March 18, 2025 11:00am Do you have a Healthcare Power of Hydro Station Supervisor? Yes March 18, 2025 11:00am Name of Medical Power of Hydro Station Supervisor Davian Abad March 18, 2025 11:00am Advance Directives Yes March 18 11:00am Do you have a Healthcare Power of Hydro Station Supervisor? Yes April 10, 2025 4:38pm Chief Complaint and Reason for Visit Chief Complaint SCREENING Chief Complaint EORDERS Nonrheumatic aortic (valve) stenosis Chief Complaint Admit Date Pacer Check Remote December 19, 2024 10: 34pm Chief Complaint Admit Date Pacer Check Remote December 19, 2024 10: 34pm SCREENING February 15, 2025 8:15a m Chief Complaint Admit Date Pacer Check Remote December 19, 2024 10: 34pm SCREENING February 15, 2025 8:15a m R92.8 ABN MAMM February 20, 2025 1:45p m ILR REMOVAL February 28, 2025 1:33p m BIRADS 5 March 06, 2025 2:35 pm Chief Complaint Admit Date Pacer Check Remote December 19, 2024 10: 34pm SCREENING February 15, 2025 8:15a m R92.8 ABN MAMM February 20, 2025 1:45p m ILR REMOVAL February 28, 2025 1:33p m BIRADS 5 March 06, 2025 2:35 pm L BREAST BIOPSY March 06, 2025 4:05 pm L BREAST MASS March 07, 2025 2:10 pm Reason for Visit Admit Date Left breast mass March 06, 2025 2:35 pm Status post placement of implantable loo p recorder March 06, 2025 2:35pm Reason for Visit Admit Date Left breast mass March 06, 2025 2:35 pm Status post placement of implantable loo p recorder March 06, 2025 2:35pm Left breast mass March 07, 2025 2:10 pm Chief Complaint Admit Date Pacer Check Remote December 19, 2024 10: 34pm SCREENING February 15, 2025 8:15a m R92.8 ABN MAMM February 20, 2025 1:45p m Chief Complaint Admit Date Pacer Check Remote December 19, 2024 10: 34pm SCREENING February 15, 2025 8:15a m R92.8 ABN MAMM February 20, 2025 1:45p m ILR REMOVAL February 28, 2025 1:33p m BIRADS 5 March 06, 2025 2:35 pm L BREAST BIOPSY March 06, 2025 4:05 pm L BREAST MASS March 07, 2025 2:10 pm FOLLOW UP March 13, 2025 2:11 pm Chief Complaint Admit Date Pacer Check Remote December 19, 2024 10: 34pm SCREENING February 15, 2025 8:15a m R92.8 ABN MAMM February 20, 2025 1:45p m ILR REMOVAL February 28, 2025 1:33p m BIRADS 5 March 06, 2025 2:35 pm L BREAST BIOPSY March 06, 2025 4:05 pm L BREAST MASS March 07, 2025 2:10 pm FOLLOW UP March 13, 2025 2:11 pm ILR REMOVAL March 18, 2025 10:2 6am Reason for Visit Admit Date Left breast mass March 06, 2025 2:35 pm Status post placement of implantable loo p recorder March 06, 2025 2:35pm Left breast mass March 07, 2025 2:10 pm Left breast mass March 13, 2025 2:11 pm Chief Complaint Admit Date Pacer Check Remote December 19, 2024 10: 34pm SCREENING February 15, 2025 8:15a m R92.8 ABN MAMM February 20, 2025 1:45p m ILR REMOVAL February 28, 2025 1:33p m BIRADS 5 March 06, 2025 2:35 pm L BREAST BIOPSY March 06, 2025 4:05 pm L BREAST MASS March 07, 2025 2:10 pm FOLLOW UP March 13, 2025 2:11 pm ILR REMOVAL March 18, 2025 10:2 6am DISCUSS MASECTOMY COMBO WITH DR KELLY Ray ne 2024 8:07am Chief Complaint Admit Date Pacer Check Remote December 19, 2024 10: 34pm SCREENING February 15, 2025 8:15a m R92.8 ABN MAMM February 20, 2025 1:45p m ILR REMOVAL February 28, 2025 1:33p m Pacer Check Remote March 01, 2025 1:50p m BIRADS 5 March 06, 2025 2:35 pm L BREAST BIOPSY March 06, 2025 4:05 pm L BREAST MASS March 07, 2025 2:10 pm FOLLOW UP March 13, 2025 2:11 pm ILR REMOVAL March 18, 2025 10:2 6am DISCUSS MASECTOMY COMBO WITH DR KELLY Ray ne 2024 8:07am FOLLOW UP March 28, 2025 9:22a m Reason for Visit Admit Date Left breast mass March 06, 2025 2:35 pm Status post placement of implantable loo p recorder March 06, 2025 2:35pm Left breast mass March 07, 2025 2:10 pm Left breast mass March 13, 2025 2:11 pm Invasive lobular carcinoma of breast in female March 22, 2025 8:07am Chief Complaint Admit Date Pacer Check Remote December 19, 2024 10: 34pm SCREENING February 15, 2025 8:15a m R92.8 ABN MAMM February 20, 2025 1:45p m ILR REMOVAL February 28, 2025 1:33p m Pacer Check Remote March 01, 2025 1:50p m BIRADS 5 March 06, 2025 2:35 pm L BREAST BIOPSY March 06, 2025 4:05 pm L BREAST MASS March 07, 2025 2:10 pm FOLLOW UP March 13, 2025 2:11 pm ILR REMOVAL March 18, 2025 10:2 6am DISCUSS MASECTOMY COMBO WITH DR KELLY Ray 2024 8:07am FOLLOW UP March 28, 2025 9:22a m Left Mastectomy w/SLN bx, blue dye & rad iotracer April 10, 2025 6:59am Left Mastectomy w/SLN bx, blue dye & rad iotracer April 10, 2025 7:17am Left Mastectomy w/SLN bx, blue dye & rad iotracer April 10, 2025 8:41am Left Mastectomy w/SLN bx, blue dye & rad iotracer April 11, 2025 6:42am Left Mastectomy w/SLN bx, blue dye & rad iotracer April 11, 2025 6:47am Reason for Visit Admit Date Left breast mass March 06, 2025 2:35 pm Status post placement of implantable loo p recorder March 06, 2025 2:35pm Left breast mass March 07, 2025 2:10 pm Left breast mass March 13, 2025 2:11 pm Invasive lobular carcinoma of breast in female March 22, 2025 8:07am Invasive lobular carcinoma of breast in female March 28, 2025 9:22am Left breast mass March 28, 2025 9:22a m Invasive lobular carcinoma of breast in female April 10, 2025 6:59am Left breast mass April 10, 2025 6:59 am Chief Complaint Admit Date Pacer Check Remote December 19, 2024 10: 34pm SCREENING February 15, 2025 8:15a m R92.8 ABN MAMM February 20, 2025 1:45p m ILR REMOVAL February 28, 2025 1:33p m Pacer Check Remote March 01, 2025 1:50p m BIRADS 5 March 06, 2025 2:35 pm L BREAST BIOPSY March 06, 2025 4:05 pm L BREAST MASS March 07, 2025 2:10 pm FOLLOW UP March 13, 2025 2:11 pm ILR REMOVAL March 18, 2025 10:2 6am DISCUSS MASECTOMY COMBO WITH DR KELLY Ray ne 2024 8:07am FOLLOW UP March 28, 2025 9:22a m PREOP April 02, 2025 9:21a m Left Mastectomy w/SLN bx, blue dye & rad iotracer April 10, 2025 6:59am Left Mastectomy w/SLN bx, blue dye & rad iotracer April 10, 2025 7:17am Left Mastectomy w/SLN bx, blue dye & rad iotracer April 10, 2025 8:41am Left Mastectomy w/SLN bx, blue dye & rad iotracer April 11, 2025 6:42am Left Mastectomy w/SLN bx, blue dye & rad iotracer April 11, 2025 6:47am POST OP April 18, 2025 10:1 4am Reason for Referral Specialty Diagnoses / Procedures Referred By Contac t Referred To Contact CT IMAGING Diagnoses SDH (subdural hematoma) (HCC) Procedures CT BRAIN WO IVCON CT HEAD/BRAIN W/O CONTRAST MATERIAL Aris Marin, [employer] [address] [place] [address] [place] [address] Referral ID Status Reason Start Date Expiration Date V isits Requested Visits Authorized [id number] Closed Auto-Generate d Referral 03/10/2024 04/09/2025 1 1 Specialty Diagnoses / Procedures Referred By Contac t Referred To Contact CT IMAGING Diagnoses Subdural hematoma (HCC) Procedures CT BRAIN WO IVCON CT HEAD/BRAIN W/O CONTRAST MATERIAL Radha Mosley, [employer] [address] [place] [address] [place] [address] Referral ID Status Reason Start Date Expiration Date Visits Requested Visits Authorized [id number] Authorized Auto-Generat ed Referral 04/12/2024 05/12/2025 1 1 Referral ID Status Reason Start Date Expiration Date V isits Requested Visits Authorized [id number] Closed Auto-Generate d Referral 04/12/2024 05/12/2025 1 1 Summary Purpose Family History No Family History Records Found Additional Source Comments Goals (unrecognized section and content) Goals may be documented in a n alternate sectionGoals may be documented in an alternate sectionGoals may be documented in an alternate sectionGoals may be documented in an alternate sectionGoals may be documented in an alternate sectionGoals may be documented in an alternate sectionGoals may be documented in an alternate sectionGoals may be documented in an alternate sectionGoals may be documented in an alternate sectionGoals may be documented in an alternate sectionGoals may be documented in an alternate sectionGoals may be documented in an alternate sectionGoals may be documented in an alternate sectionGoals may be documented in an alternate section Care Teams (unrecognized sec tion and content) Team Status: Active Member Role Status Dates Dr. Aria Sanchez MD Family Provider Active Dr. Aria Sanchez MD Primary Care Provider Active Team Status: Inactive Member Role Status Dates Dr. Aria Sanchez MD Primary Care Provide r, Attending Provider, Referring Provider Active Team Status: Active Member Role Status Dates Dr. Aria Sanchez MD Primary Care Provider Active Dr. 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 Medicine 03/12/24 Team Status: Active Member Role Status Dates Dr. Aria Sanchez MD Primary Care Provider Active Team Status: Inactive Member Role Status Dates Dr. Aria Sanchez MD Primary Care Provider Active Start: December 19, 2024 End: December 19, 2024 Dr. Kameron Gamez MD Attending Provider Active S tart: December 19, 2024 End: December 19, 2024 Team Status: Inactive Member Role Status Dates Dr. Aria Sanchez MD Primary Care Provider Active Start: February 05, 2025 End: February 05, 2025 Dr. Aria Sanchez MD Attending Provider Active St art: February 05, 2025 End: February 05, 2025 Dr. Aria Sanchez MD Referring Provider Active St art: February 05, 2025 End: February 05, 2025 Team Status: Inactive Member Role Status Dates Dr. Aria Sanchez MD Primary Care Provider Active Start: February 15, 2025 End: February 15, 2025 Dr. Aria Sanchez MD Attending Provider Active St art: February 15, 2025 End: February 15, 2025 Dr. Aria Sanchez MD Referring Provider Active St art: February 15, 2025 End: February 15, 2025 Team Status: Inactive Member Role Status Dates Dr. Aria Sanchez MD Primary Care Provider Active Start: February 20, 2025 End: February 20, 2025 Dr. Aria Sanchez MD Attending Provider Active St art: February 20, 2025 End: February 20, 2025 Dr. Aria Sanchez MD Referring Provider Active St art: February 20, 2025 End: February 20, 2025 Team Status: Active Member Role Status Dates Dr. Aria Sanchez MD Primary Care Provider Active Start: February 28, 2025 Kamilah Barrow Referring Provider Active Start: 2024 Kamilah Barrow Other Provider Active Start: February 28, 2025 Dr. Kameron Gamez MD Attending Provider Active S tart: February 28, 2025 Team Status: Inactive Member Role Status Dates Dr. Aria Sanchez MD Primary Care Provider Active Start: March 06, 2025 End: March 06, 2025 Dr. Aria Sanchez MD Referring Provider Active St art: March 06, 2025 End: March 06, 2025 Dr. Rufina Godinez MD Attending Provider Active Start: March 06, 2025 End: March 06, 2025 Team Status: Active Member Role Status Dates Dr. Aria Sanchez MD Primary Care Provider Active Start: March 06, 2025 Dr. Rufina Godinez MD Attending Provider Active Start: March 06, 2025 Dr. Rufina Godinez MD Referring Provider Active Start: March 06, 2025 Team Status: Inactive Member Role Status Dates Dr. Aria Sanchez MD Primary Care Provider Active Start: March 07, 2025 End: March 07, 2025 Dr. Aria Sanchez MD Referring Provider Active St art: March 07, 2025 End: March 07, 2025 Dr. Giacomo Philip MD Attending Provider Active Start: March 07, 2025 End: March 07, 2025 Team Status: Inactive Member Role Status Dates Dr. Aria Sanchez MD Primary Care Provider Active Start: March 06, 2025 End: March 06, 2025 Dr. Rufina Godinez MD Attending Provider Active Start: March 06, 2025 End: March 06, 2025 Dr. Rufina Godinez MD Referring Provider Active Start: March 06, 2025 End: March 06, 2025 Team Status: Inactive Member Role Status Dates Dr. Aria Sanchez MD Primary Care Provider Active Start: March 13, 2025 End: March 13, 2025 Dr. Aria Sanchez MD Referring Provider Active St art: March 13, 2025 End: March 13, 2025 Dr. Giacomo Philip MD Attending Provider Active Start: March 13, 2025 End: March 13, 2025 Team Status: Inactive Member Role Status Dates Dr. Aria Sanchez MD Primary Care Provider Active Start: March 18, 2025 End: March 18, 2025 Dr. Kameron Gamez MD Attending Provider Active S tart: March 18, 2025 End: March 18, 2025 Dr. Kameron Gamez MD Referring Provider Active S tart: March 18, 2025 End: March 18, 2025 Team Status: Inactive Member Role Status Dates Dr. Aria Sanchez MD Primary Care Provider Active Start: March 22, 2025 End: March 22, 2025 Dr. Aria Sanchez MD Referring Provider Active St art: March 22, 2025 End: March 22, 2025 Dr. Rufina Godinez MD Attending Provider Active Start: March 22, 2025 End: March 22, 2025 Team Status: Active Member Role/Relationship Status Dates Dr. Aria Sanchez MD Primary Care Provider Active Team Status: Inactive Member Role/Relationship Status Dates Dr. Aria Sanchez MD Primary Care Provider Active Start: December 19, 2024 End: December 19, 2024 Dr. Kameron Gamez MD Attending Provider Active S tart: December 19, 2024 End: December 19, 2024 Team Status: Inactive Member Role/Relationship Status Dates Dr. Aria Sanchez MD Primary Care Provider Active Start: February 05, 2025 End: February 05, 2025 Dr. Aria Sanchez MD Attending Provider Active St art: February 05, 2025 End: February 05, 2025 Dr. Aria Sanchez MD Referring Provider Active St art: February 05, 2025 End: February 05, 2025 Team Status: Inactive Member Role/Relationship Status Dates Dr. Aria Sanchez MD Primary Care Provider Active Start: February 15, 2025 End: February 15, 2025 Dr. Aria Sanchez MD Attending Provider Active St art: February 15, 2025 End: February 15, 2025 Dr. Aria Sanchez MD Referring Provider Active St art: February 15, 2025 End: February 15, 2025 Team Status: Inactive Member Role/Relationship Status Dates Dr. Aria Sanchez MD Primary Care Provider Active Start: February 20, 2025 End: February 20, 2025 Dr. Aria Sanchez MD Attending Provider Active St art: February 20, 2025 End: February 20, 2025 Dr. Aria Sanchez MD Referring Provider Active St art: February 20, 2025 End: February 20, 2025 Team Status: Active Member Role/Relationship Status Dates Dr. Aria Sanchez MD Primary Care Provider Active Start: February 28, 2025 Kamilah Barrow Referring Provider Active Start: 2024 Kamilah Barrow Other Provider Active Start: February 28, 2025 Dr. Kameron Gamez MD Attending Provider Active S tart: February 28, 2025 Team Status: Active Member Role/Relationship Status Dates Dr. Aria Sanchez MD Primary Care Provider Active Start: March 01, 2025 Dr. Kameron Gamez MD Attending Provider Active S tart: March 01, 2025 Team Status: Inactive Member Role/Relationship Status Dates Dr. Aria Sanchez MD Primary Care Provider Active Start: March 06, 2025 End: March 06, 2025 Dr. Aria Sanchez MD Referring Provider Active St art: March 06, 2025 End: March 06, 2025 Dr. Rufina Godinez MD Attending Provider Active Start: March 06, 2025 End: March 06, 2025 Team Status: Inactive Member Role/Relationship Status Dates Dr. Aria Sanchez MD Primary Care Provider Active Start: March 06, 2025 End: March 06, 2025 Dr. Rufina Godinez MD Attending Provider Active Start: March 06, 2025 End: March 06, 2025 Dr. Rufina Godinez MD Referring Provider Active Start: March 06, 2025 End: March 06, 2025 Team Status: Inactive Member Role/Relationship Status Dates Dr. Aria Sanchez MD Primary Care Provider Active Start: March 07, 2025 End: March 07, 2025 Dr. Aria Sanchez MD Referring Provider Active St art: March 07, 2025 End: March 07, 2025 Dr. Giacomo Philip MD Attending Provider Active Start: March 07, 2025 End: March 07, 2025 Team Status: Inactive Member Role/Relationship Status Dates Dr. Aria Sanchez MD Primary Care Provider Active Start: March 13, 2025 End: March 13, 2025 Dr. Aria Sanchez MD Referring Provider Active St art: March 13, 2025 End: March 13, 2025 Dr. Giacomo Philip MD Attending Provider Active Start: March 13, 2025 End: March 13, 2025 Team Status: Inactive Member Role/Relationship Status Dates Dr. Aria Sanchez MD Primary Care Provider Active Start: March 18, 2025 End: March 18, 2025 Dr. Kameron Gamez MD Attending Provider Active S tart: March 18, 2025 End: March 18, 2025 Dr. Kameron Gamez MD Referring Provider Active S tart: March 18, 2025 End: March 18, 2025 Team Status: Inactive Member Role/Relationship Status Dates Dr. Aria Sanchez MD Primary Care Provider Active Start: March 22, 2025 End: March 22, 2025 Dr. Aria Sanchez MD Referring Provider Active St art: March 22, 2025 End: March 22, 2025 Dr. Rufina Godinez MD Attending Provider Active Start: March 22, 2025 End: March 22, 2025 Team Status: Inactive Member Role/Relationship Status Dates Dr. Aria Sanchez MD Primary Care Provider Active Start: March 28, 2025 End: March 28, 2025 Dr. Aria Sanchez MD Referring Provider Active St art: March 28, 2025 End: March 28, 2025 Dr. Giacomo Philip MD Attending Provider Active Start: March 28, 2025 End: March 28, 2025 Team Status: Inactive Member Role/Relationship Status Dates Dr. Aria Sanchez MD Primary Care Provider Active Start: March 01, 2025 End: March 01, 2025 Dr. Kameron Gamez MD Attending Provider Active S tart: March 01, 2025 End: March 01, 2025 Team Status: Inactive Member Role/Relationship Status Dates Dr. Aria Sanchez MD Primary Care Provider Active Start: April 10, 2025 End: April 11, 2025 Dr. Rufina Godinez MD Attending Provider Active Start: April 10, 2025 End: April 11, 2025 Dr. Rufina Godinez MD Referring Provider Active Start: April 10, 2025 End: April 11, 2025 Dr. Giacomo Philip MD Other Provider Active Star t: April 10, 2025 End: April 11, 2025 Team Status: Active Member Role/Relationship Status Dates Dr. Aria Sanchez MD Primary Care Provider Active Start: April 10, 2025 Dr. Rufina Godinez MD Referring Provider Active Start: April 10, 2025 Dr. Rufina Godinez MD Other Provider Active S tart: April 10, 2025 Dr. Giacomo Philip MD Attending Provider Active Start: April 10, 2025 Team Status: Active Member Role/Relationship Status Dates Dr. Aria Sanchez MD Primary Care Provider Active Start: April 10, 2025 Dr. Rufina Godinez MD Attending Provider Active Start: April 10, 2025 Dr. Rufina Godinez MD Referring Provider Active Start: April 10, 2025 Dr. Rufina Godinez MD Other Provider Active S tart: April 10, 2025 Team Status: Active Member Role/Relationship Status Dates Dr. Aria Sanchez MD Primary Care Provider Active Start: April 11, 2025 Dr. Rufina Godinez MD Admit Provider Active S tart: April 11, 2025 Dr. Rufina Godinez MD Referring Provider Active Start: April 11, 2025 Dr. Rufina Godinez MD Other Provider Active S tart: April 11, 2025 Dr. Giacomo Philip MD Other Provider Active Star t: April 11, 2025 Yajaira COOK PA-C Attending Provider Active Start: April 11, 2025 Team Status: Active Member Role/Relationship Status Dates Dr. Aria Sanchez MD Primary Care Provider Active Start: April 11, 2025 Dr. Rufina Godinez MD Admit Provider Active S tart: April 11, 2025 Dr. Rufina Godinez MD Referring Provider Active Start: April 11, 2025 Dr. Rufina Godinez MD Other Provider Active S tart: April 11, 2025 Dr. Giacomo Philip MD Attending Provider Active Start: April 11, 2025 Dr. Giacomo Philip MD Other Provider Active Star t: April 11, 2025 Team Status: Inactive Member Role/Relationship Status Dates Dr. Aria Sanchez MD Primary Care Provider Active Start: March 26, 2025 Dr. Shelli Piper MD Attending Provider Active Start: March 26, 2025 Team Status: Inactive Member Role/Relationship Status Dates Dr. Aria Sanchez MD Primary Care Provider Active Start: March 28, 2025 End: March 28, 2025 Dr. Aria Sanchez MD Referring Provider Active St art: March 28, 2025 End: March 28, 2025 Dr. Giacomo Philip MD Attending Provider Active Start: March 28, 2025 End: March 28, 2025 Team Status: Active Member Role/Relationship Status Dates Dr. Aria Sanchez MD Primary Care Provider Active Start: April 02, 2025 End: April 02, 2025 Dr. Kameron Gamez MD Attending Provider Active S tart: April 02, 2025 End: April 02, 2025 Dr. Tato Venegas MD Referring Provider Active Start: April 02, 2025 End: April 02, 2025 Team Status: Inactive Member Role/Relationship Status Dates Dr. Aria Sanchez MD Primary Care Provider Active Start: April 10, 2025 End: April 11, 2025 Dr. Rufina Godinez MD Attending Provider Active Start: April 10, 2025 End: April 11, 2025 Dr. Rufina Godinez MD Referring Provider Active Start: April 10, 2025 End: April 11, 2025 Dr. Giacomo Philip MD Other Provider Active Star t: April 10, 2025 End: April 11, 2025 Team Status: Active Member Role/Relationship Status Dates Dr. Aria Sanchez MD Primary Care Provider Active Start: April 10, 2025 Dr. Rufina Godinez MD Referring Provider Active Start: April 10, 2025 Dr. Rufina Godinez MD Other Provider Active S tart: April 10, 2025 Dr. Giacomo Philip MD Attending Provider Active Start: April 10, 2025 Team Status: Active Member Role/Relationship Status Dates Dr. Aria Sanchez MD Primary Care Provider Active Start: April 10, 2025 Dr. Rufina Godinez MD Attending Provider Active Start: April 10, 2025 Dr. Rufina Godinez MD Referring Provider Active Start: April 10, 2025 Dr. Rufina Godinez MD Other Provider Active S tart: April 10, 2025 Team Status: Active Member Role/Relationship Status Dates Dr. Aria Sanchez MD Primary Care Provider Active Start: April 11, 2025 Dr. Rufina Godinez MD Admit Provider Active S tart: April 11, 2025 Dr. Rufina Godinez MD Referring Provider Active Start: April 11, 2025 Dr. Rufina Godinez MD Other Provider Active S tart: April 11, 2025 Dr. Giacomo Philip MD Other Provider Active Star t: April 11, 2025 Yajaira COOK PA-C Attending Provider Active Start: April 11, 2025 Team Status: Active Member Role/Relationship Status Dates Dr. Aria Sanchez MD Primary Care Provider Active Start: April 11, 2025 Dr. Rufina Godinez MD Admit Provider Active S tart: April 11, 2025 Dr. Rufina Godinez MD Referring Provider Active Start: April 11, 2025 Dr. Rufina Godinez MD Other Provider Active S tart: April 11, 2025 Dr. Giacomo Philip MD Attending Provider Active Start: April 11, 2025 Dr. Giacomo Philip MD Other Provider Active Star t: April 11, 2025 Team Status: Inactive Member Role/Relationship Status Dates Dr. Aria Sanchez MD Primary Care Provider Active Start: April 18, 2025 End: April 18, 2025 Dr. Aria Sanchez MD Referring Provider Active St art: April 18, 2025 End: April 18, 2025 Dr. Giacomo Philip MD Attending Provider Active Start: April 18, 2025 End: April 18, 2025 Source Comments (unrecognize d section and content) In the event this informatio n is protected by the Federal Confidentiality of Alcohol and Drug Abuse Patient Records regulations: The Federal rules restrict any use of the information to criminally investigate or prosecute any alcohol or drug abuse patient.[facility] the event this information is protected by the Federal Confidentiality of Alcohol and Drug Abuse Patient Records regulations: The Federal rules restrict any use of the information to criminally investigate or prosecute any alcohol or drug abuse patient.[facility] the event this information is protected by the Federal Confidentiality of Alcohol and Drug Abuse Patient Records regulations: The Federal rules restrict any use of the information to criminally investigate or prosecute any alcohol or drug abuse patient.[facility] the event this information is protected by the Federal Confidentiality of Alcohol and Drug Abuse Patient Records regulations: The Federal rules restrict any use of the information to criminally investigate or prosecute any alcohol or drug abuse patient.[facility] the event this information is protected by the Federal Confidentiality of Alcohol and Drug Abuse Patient Records regulations: The Federal rules restrict any use of the information to criminally investigate or prosecute any alcohol or drug abuse patient.[facility] Reason for Visit (unrecogniz ed section and content) Reason Comments Appointment Reason Comments Radiology CT Specialty Diagnoses / Procedures Referred By Kate t Referred To Contact CT IMAGING Diagnoses SDH (subdural hematoma) (HCC) Procedures CT BRAIN WO IVCON CT HEAD/BRAIN W/O CONTRAST MATERIAL Aris Marin APRN.COLLEGE TUTOR [id number] [place] [address] Referral ID Status Reason Start Date Expiration Date V isits Requested Visits Authorized [id number] Closed Auto-Generate d Referral 03/10/2024 04/09/2025 1 1 Reason Comments Established Patient Specialty Diagnoses / Procedures Referred By Contac t Referred To Contact CT IMAGING Diagnoses Subdural hematoma (HCC) Procedures CT BRAIN WO IVCON CT HEAD/BRAIN W/O CONTRAST MATERIAL Radha Mosley, PORCELAIN WAXER.COLLEGE TUTOR [address] [address] [place] [address] Referral ID Status Reason Start Date Expiration Date V isits Requested Visits Authorized [id number] Closed Auto-Generate d Referral 04/12/2024 05/12/2025 1 1 Reason Comments Follow Up INFORMATION SOURCE (unrecogn ized section and content) DATE CREATED AUTHOR 05/08/2024 [facility] DATE CREATED AUTHOR AUTHOR'S ORGANIZ ATION 10/29/2024 [facility] DATE CREATED AUTHOR AUTHOR'S ORGANIZ ATION 03/29/2025 [facility] DATE CREATED AUTHOR AUTHOR'S ORGANIZ ATION 04/21/2025 [facility] FOR RECORDS PERTAINING TO PATIENTS WHO ARE OR HAVE BEEN ENROLLED IN A CHEMICAL DEPENDENCY/SUBSTANCEABUSE PROGRAM, SOME INFORMATION MAY BE OMITTED. This clinical summary was aggregated from multiple sources. Caution should be exercised in using it in the provision of clinical care. This summary normalizes information from multiple sources, and as a consequence, information in this document may materially change the coding, format and clinical context of patient data. In addition, data may be omitted in some cases. CLINICAL DECISIONS SHOULD BE BASED ON THE PRIMARY CLINICAL RECORDS. [employer] provides no warranty or guarantee of the accuracy or completeness of information in this document.
[2025-04-23 11:12] LABS: FOLATES,SERUM (FOLIC ACID) > 40.00 ng/mL (4.60-34.80)
== END 2025-04-23 23:59 | disposition home or self-care (01) ==
LOC: MFPLAB 08:41
PROVIDERS: PCP Family Medicine; Referring Provider Family Medicine; Visit Provider Family Medicine
DX: D75.89 Other specified diseases of blood and blood-forming organs (principal)
CPT/HCPCS: 36415; 82607; 82746

== ENCOUNTER → 2025-05-21 | Outpatient (CLI) | payer MEDICARE, OTHER, SELFPAY ==
--- NOTE | 2025-05-21 13:09 | BD_ITS ---
PROCEDURE: DEXA BONE DENSITY STUDY 05/21/2025 REASON FOR EXAM: SCREENING F, age 79 y/o . Postmenopausal. TECHNIQUE: DEXA BONE DENSITY STUDY COMPARISON: Prior study dated October 26, 2018. FINDINGS: BMD and T-SCORES Lumbar spine: 1.393 g/cm2, T-score 3.1 Levels: L1 through L4 Change from prior: Loss of 2.2%. Left femoral neck: 0.904 g/cm2, T-score 0.5 Femoral neck comparison data not recommended for monitoring change. Left total hip: 0.994 g/cm2, T-score 0.4 Change from prior: Loss of 3.4%. Right femoral neck: 0.918 g/cm2, T-score 0.6 Femoral neck comparison data not recommended for monitoring change. Right total hip: 0.988 g/cm2, T-score 0.4 Change from prior: Loss of 5.5%. The World Health Organization has defined the following categories based on bone density: Normal bone density: T-score equal to or greater than -1.0 Osteopenia: T-score between -1.0 and -2.5 Osteoporosis: T-score equal to or less than -2.5 FRAX (or Comparable) Fracture Risk Assessment: 10 Year Probability of Fracture: Major Osteoporotic Fracture: 7.9% Hip Fracture: 0.8% (Note: FRAX is not to be reported in setting of normal range bone density, osteoporosis on DEXA, known history of osteoporosis, prior osteoporotic hip or vertebral fracture, or for any patient undergoing pharmacological treatment for bone loss.) The National Osteoporosis Foundation (NOF) recommends pharmacological treatment for patients with a FRAX 10-year risk of 3% or higher for a hip fracture, or 20% or higher for a major osteoporotic fracture, to prevent osteoporosis and reduce fracture risk. The patient does not meet the pharmacological treatment recommendations for prevention of osteoporosis. BD/Dexa Bone Density Study IMPRESSION: NORMAL T-SCORES. Recommend follow-up as clinically warranted. Reading Location: [id number]
== END | disposition home or self-care (01) ==
LOC: OPBD 13:07
PROVIDERS: PCP Family Medicine; Referring Provider Internal Medicine Hematology & Oncology; Visit Provider Internal Medicine Hematology & Oncology
DX: Z78.0 Asymptomatic menopausal state (principal); C50.911 Malignant neoplasm of unspecified site of right female breast
CPT/HCPCS: 77080

== ENCOUNTER → 2025-07-01 | Outpatient (CLI) | payer MEDICARE, OTHER, SELFPAY ==
--- NOTE | 2025-07-01 13:34 | US_ITS ---
PROCEDURE: BREAST LIMITED UNILATERAL 07/01/2025 REASON FOR EXAM: F, Age 79 y/o , R/O IMPLANT RUPTURE. History of right breast cancer. She had a right mastectomy 1983 with reconstruction and implant. COMPARISON: Mammogram study dated 02/20/2025. TECHNIQUE: Procedure Code: USBRSTLIMIT Modality: US Procedure: BREAST LIMITED UNILATERAL FINDINGS: There are multiple, parallel, linear echoes within the implants interior. These lines are thin and appear at various levels. These lines are discontinuous and do not reach the implants outer boundary on the images submitted for review. This "stepladder sign" is an indication of an intracapsular silicone rupture. US/Breast Limited Unilateral IMPRESSION: There appears to be an intracapsular silicone rupture of the implant. This cou ld be confirmed with breast MRI if the patient is considering having the implant removed. BI-RADS 2: BENIGN RECOMMENDATION: OTHER surgical consultation Reading Location: [id number]
== END | disposition home or self-care (01) ==
PROVIDERS: PCP Family Medicine; Referring Provider Surgery Plastic and Reconstructive Surgery; Visit Provider Surgery Plastic and Reconstructive Surgery
DX: C50.911 Malignant neoplasm of unspecified site of right female breast (principal)
CPT/HCPCS: 76642

== ENCOUNTER 2025-07-30 09:48 | Observation (INO) | payer MEDICARE, OTHER, SELFPAY ==
--- NOTE | 2025-07-16 17:21 | PAT.ANESEVAL ---
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 When Was Last Pacemaker Check QUESTION #4 FULL TEXT: You/Your Family Experience fever (hyperthermia) with Anesthesia Last Oral Intake Last Oral intake: Last Oral Intake NPO since Meds taken in AM with sips of water? Meds patient instructed to take am of surgery PONV PONV - flight deck officer: PONV - flight deck officer Female Yes 07/16/25 09:19 HX of Motion Sickness No 07/16/25 09:19 HX of N/V After Surgery Yes 07/16/25 09:19 Non-Smoker Yes 07/16/25 09:19 Duration of Surgery greater Yes 07/16/25 09:19 than 60 minutes Number of Risk Factors 4 07/16/25 09:19 PONV Score Severe Risk 07/16/25 09:19 Height & Weight Height & Weight: Anesthesia: Height & Weight Height 5 ft 4 in 05/28/25 14:01 Respiratory Assessment Respiratory Assessment - flight deck officer: Respiratory Tract Infection Hx - flight deck officer Hx Respiratory Tract Infection No 07/16/25 09:19 STOP Sleep Apnea STOP Sleep Apnea - flight deck officer: STOP Sleep Apnea - flight deck officer Hx Hypertension Yes: CONTROLLED ON MED 07/16/25 09:19 Hx Sleep Apnea No 07/16/25 09:19 CPAP No 07/16/25 09:19 BIPAP Do you snore loudly (louder No 07/16/25 09:19 than talking or can be heard Do you often feel tired/ No 07/16/25 09:19 fatigued/ sleepy during daytime? Has anyone observed you stop No 07/16/25 09:19 breathing during sleep? STOP Results Negative 07/16/25 09:19 QUESTION #5 FULL TEXT : Do you snore loudly (louder than talking or can be heard through closed doors)? 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 Specify any problems Hx of Preganancy in last 3 No 07/16/25 09:19 Months Nurse Filling Out Transfusion [id number] 07/16/25 09:19 & Questions: Date: 07/16/25 07/16/25 09:19 Time: :07/16/25 09:19 Patient unable to answer at this time (ie. confused, unrespo /Reproduction History /Reproductive History - flight deck officer: /Reproductive Hx- flight deck officer Hx Now No 07/16/25 09:19 Gestational Age (in weeks): EDC: Hx Hx Para Hx Section SAB No 07/16/25 09:19 [facility] Medical History (Updated 07/16/25 @ 09:34 by Audie Aviles) Encounter for education Wears hearing aid Wears glasses Post-menopausal Cancer Alcohol use Thyroid disease High cholesterol Injury of back Injury of head and neck Syncope Gastric reflux Former smoker History of echocardiogram History of stress test Cardiology follow-up encounter Laceration of left middle finger Status post placement of implantable loop recorder Syncope and collapse Syncope Fall Hematoma of scalp Subdural hemorrhage Non-rheumatic aortic stenosis Chest tightness Right bundle branch block (RBBB) GERD (gastroesophageal reflux disease) Cancer of right breast Hyperlipidemia Arthritis Essential (primary) hypertension Home Medications ?Medication ?Instructions ?Recorded ?Last Taken ?Type iovivafq-[id number] 8 mg-folic 400 1 ea PO DAILY SUPPLEMENT 05/27/16 03/20/24 History mcg-K 50 mcg-lutein 300 mcg tablet atorvastatin 40 mg tablet 40 mg PO QHS CHOLESTEROL #90 tabs 07/12/24 04/09/25 Rx famotidine-Ca carb-mag hydrox 10 1 tab PO DAILY PRN indigestion 07/12/24 04/08/25 History mg-800 mg-165 mg chewable tablet (Pepcid Complete) metoprolol succinate 25 mg 25 mg PO DAILY BP #90 tabs 07/12/24 04/10/25 04:00 Rx tablet,extended release 24 hr (Toprol XL) levothyroxine 75 mcg tablet 75 mcg PO DAILY THYROID 03/27/25 04/10/25 History lactobacillus combination no.9 4 4,000 mmu cells PO QDAY 05/16/25 Unknown History billion cell capsule (Adult 50 Plus Probiotic) Allergy/AdvReac Type Severity Reaction Status Date / Time bupropion HCl (From Zyban) Allergy Severe Hives Verified 07/16/25 09:17 red dye Allergy Mild Itching Verified 07/16/25 09:17 bupropion (From Zyban) Allergy Hives Verified 07/16/25 09:17 hydrocodone (From Vicodin) AdvReac N/V Verified 07/16/25 09:17 hydromorphone AdvReac constipatio Verified 07/16/25 09:17 n Family History Brother , age 49 Cancer lung Father Heart disease Mother Dementia Surgical History History of left mastectomy Hx of neck surgery History of breast reconstruction H/O section History of appendectomy History of mastectomy Social History Smoking Status: Former smoker quit date: 09/26/04 pack-years: 40 Tobacco: How many years used: 40 how long ago did patient quit smokin years ago second hand exposure: Yes alcohol intake: current alcohol intake frequency: 0-2 drinks per day Alcohol type: wine Audit: Pertinent Findings Pertinent Findings EKG Perinent findings: April 02, 2025. Sinus bradycardia at 58 bpm. Incomplete right bundle branch block. Septal infarct (cited on or before May 27, 2016) Stress test pertinent findings: 06/23/2020. EF of 86%. No areas of reversibility are noted to suggest ischemia. No previous infarct. Echo (EF%) pertinent findings: 04/02/2024. EF of 55%. Mild aortic stenosis. Consult pertinent findings: 07/12/2024. Vincent THORPE. 1. Syncope-patient underwent loop recorder placement for further assessment. Denies any recent symptoms or events. 2. Nonrheumatic aortic stenosis-stenosis is mild on most recent echo. Stable at this time. Continue to monitor. 3. Akkgrjrdzebt-lreh-[id number]. Continue current medical therapy. 4. Right bundle branch block-chronic. 5. Status post placement implantable loop recorder-most recent interrogation from 06/22/2024 demonstrated normal sinus rhythm. No symptomatic episodes were triggered. Continue to monitor. Additional pertinent findings: 06/22/2024. Loop recorder. Normal sinus rhythm. No symptomatic or automatic episodes were triggered. Recommendation Anesthesia Recommendation Anesthesia recommendation: OPTIMIZED for anesthesia (Patient has mild aortic stenosis. Avoid increased heart rates and decrease blood pressure. Phenylephrine is drug of choice.)
[2025-07-30] VITALS (16 sets, daily range): BP systolic 102–139; BP diastolic 52–90; PULSE 60–80; RESP 14–16; TEMP 36.1–36.8; O2SAT 92–100; BMI 24.9; BMI 24.5
--- OUTSIDE RECORDS SUMMARY | 2025-07-30 05:55 | XMS RPT_ITS | CCD ---
Author Organization [facility] CliniSyma Care Team Providers Care Radar Signal Processing Engineer Name Role Phone Dr. Aria Sanchez Primary [...] Sanchez MD Primary Care Provider Dr. Kameron Gamez MD Attending Provider Dr. Aria Sanchez MD [...] Provider Theo GARVEY, Dr. Godwin Referring Provider Daniel GARVEY, Dr. Guerrero Primary Care Provider Franco GRAVEY, Dr. Melo Attending Provider Veronique GARVEY, Dr. Marques Attending Provider Howard GARVEY, Dr. Connelly Attending Provider Howard GARVEY, Dr. Connelly Referring Provider Daniel GARVEY, Dr. Guerrero Primary Care Provider Mega CONTROL AREA OPERATOR-C, Ayla Attending Provider Daniel GARVEY, Dr. Guerrero Primary Care Physician Kamilah Barrow Nurse Practitioner Unavailable Franco GARVEY, Dr. Melo Attending Physician Daniel GARVEY, Dr. Guerrero Referring Provider Gretchen GARVEY, Dr. Almaraz Attending Physician Cedrick GARVEY, Dr. Gooden Attending Physician Dr. Shelli Piper MD Attending Physician Cedrick GAVREY, Dr. Gooden Nurse Practitioner Gretchen GARVEY, Dr. Almaraz Nurse Practitioner Gretchen GARVEY, Dr. Almaraz Admitting Physician Yajaira Landrum PA-C Attending Physician Dr. Aria Sanchez MD Attending Physician Howard GARVEY, Dr. Connelly Attending Physician Daniel GARVEY, Dr. Guerrero Primary Care Physician Mega CONTROL AREA OPERATOR-C, Ayla Attending Physician Godwin Lawrence Referring Unavailable Godwin Lawrence Attending Unavailable Daniel VSC, Aria Primary Care Unavailable Kameron Gamez Attending Unavailable Kameron Gamez Referring Unavailable Daniel, Aria Primary Care Unavailable Daniel, Aria Primary Care Unavailable Giacomo Philip Attending Unavailable Daniel, Aria Referring Unavailable Giacomo Philip Attending Unavailable Robotham, Rufina Admitting Unavailable Robotham, Rufina Referring Unavailable Sanchez, Aria Primary Care Unavailable Siska, Giacomo Consulting Unavailable Robotham, Rufina Consulting Unavailable Kancherla, Tato Referring Unavailable Franco, Kameron Attending Unavailable Sanchez, Aria Primary Care Unavailable Franco Kameron Attending Unavailable Sanchez, Aria Primary Care Unavailable Robotham, Rufina Attending Unavailable Robotham, Rufina Admitting Unavailable Robotham, Rufina Referring Unavailable Sanchez, Aria Primary Care Unavailable Siska, Giacoom Consulting Unavailable Siska, Giacomo Attending Unavailable Sanchez, Aria Primary Care Unavailable Sanchez, Aria Referring Unavailable Siska, Giacomo Attending Unavailable Sanchez, Aria Primary Care Unavailable Sanchez, Aria Referring Unavailable Siska, Giacomo Attending Unavailable Sanchez, Aria Referring Unavailable Sanchez, Aria Primary Care Unavailable Siska Giacomo Attending Unavailable Sanchez, Aria Referring Unavailable Sanchez, Aria Primary Care Unavailable Mega CONTROL AREA OPERATORAyla Attending Unavailable Sanchez, Aria Referring Unavailable Sanchez, Aria Primary Care Unavailable Siska Giacomo Attending Unavailable Sanchez, Aria Referring Unavailable Franco [place] Attending Unavailable Sanchez, Aria Primary Care Unavailable Sanchez, Aria Primary Care Unavailable Sanchez, Aria Attending Unavailable Sanchez, Aria Referring Unavailable Sanchez, Aria Primary Care Unavailable Siska Giacomo Attending Unavailable Siska, Giacomo Referring Unavailable Isckarus, Mansour Referring Unavailable Sanchez, Aria Primary Care Unavailable Isckarus, Mansour Attending Unavailable Sanchez, Aria Primary Care Unavailable Siska Giacomo Attending Unavailable Kancherla, Tato Consulting Unavailable Siska, Giacomo Referring Unavailable Robotham, Rufina Referring Unavailable Robotham, Rufina Attending Unavailable Sanchez, Aria Primary Care Unavailable Robotham, Rufina Consulting Unavailable Robotham, Rufina Referring Unavailable Robotham, Rufina Attending Unavailable Sanchez, Aria Primary Care Unavailable Yajaira Monet Attending Unavailable Robotham, Rufina Consulting Unavailable Robotham, Rufina Referring Unavailable Sanchez, Aria Primary Care Unavailable Siska, Giacomo Attending Unavailable Kamilah Barrow Referring Unavailable FrancoKameron church Attending Unavailable Kamilah Barrow Consulting Unavailable Sanchez, Aria Primary Care Unavailable Siska Giacomo Attending Unavailable Sanchez, Raia Primary Care Unavailable Sanchez, Aria Referring Unavailable Isckarus, Mansour Attending Unavailable Robotham, Rufina Referring Unavailable Siska, Giacomo Attending Unavailable Robotham, Rufina Attending Unavailable Sanchez, Aria Primary Care Unavailable Sanchez, Aria Referring Unavailable Siska Giacomo Attending Unavailable Siska, Giacomo Attending Unavailable Sanchez, Aria Referring Unavailable Siska, Giacomo Attending Unavailable Sanchez, Aria Primary Care Unavailable Sanchez, Aria Referring Unavailable RobotRufina valenzuela Attending Unavailable Sanchez, Aria Primary Care Unavailable Sanchez, Aria Referring Unavailable Kameron Gamez Attending Unavailable Sanchez, Aria Primary Care Unavailable Siska, Giacomo Attending Unavailable Sanchez, Aria Primary Care Unavailable Sanchez, Aria Referring Unavailable Siska, Giacomo Attending Unavailable Sanchez, Aria Primary Care Unavailable Sanchez, Aria Referring Unavailable RobothamRufina Attending Unavailable Sanchez, Aria Primary Care Unavailable Sanchez, Aria Referring Unavailable Sanchez, Aria Primary Care Unavailable Sanchez, Aria Referring Unavailable Sanchez, Aria Attending Unavailable Sanchez, Aria Primary Care Unavailable Sanchez, Aria Referring Unavailable Sanchez, Aria Attending Unavailable Sanchez, Aria Primary Care Unavailable Sanchez, Aria Referring Unavailable Sanchez, Aria Attending Unavailable Sanchez, Aria Primary Care Unavailable Sancehz, Aria Attending Unavailable Sanchez, Aria Primary Care Unavailable Sanchez, Aria Referring Unavailable Sanchez, Aria Attending Unavailable Allergies Allergy Classification Reported Allergen(s) Allergy Type Date of Onset Reaction(s) Facility (14 sources) Acetaminophen Drug Allergy 06-10-20 N/V [facility] (20 sources) buPROPion; Translations: [bupropion HCl] Drug Allergy 06-10-20 [facility] Comment on above: [facility] (20 sources) buPROPion Drug Allergy 06-10-20 [facility] (20 sources) HYDROcodone Drug Allergy 06-10-20 N/V [facility] (20 sources) HYDROmorphone Drug Allergy 06-10-20 21 Drug-induced constipation with proper administration [facility] (3 sources) Shellfish Allergy to substance 06-10-20 21 [facility] (7 sources) buPROPion; Translations: [BUPROPION (SMOKING DETER)] Drug Allergy 05-25-20 05 [facility] (20 sources) Contrast media; Translations: [RED DYE] Propensity to adverse reactions 05-25-20 05 Itching [facility] Work Phone: (7 sources) hydroCHLOROthiaz shaila; Translations: [HYDROCHLOROTHIA ZIDE] Drug Allergy 11-07-19 09 [facility] Work Phone: (4 sources) Shellfish; Translations: [SHELLFISH] Food Allergy 10-03-19 08 [facility] (1 source) Acetaminophen Drug Allergy 03-28-20 [facility] Repository (1 source) buPROPion Drug Allergy 07-23-20 [facility] (1 source) HYDROcodone Drug Allergy 07-23-20 [facility] (1 source) HYDROmorphone Drug Allergy 07-23-20 [facility] Repository Medications Current Medications Medication Drug Class(es) Dates Sig (Normalized) Sig (Original) acetaminophen 325 mg oral tablet (18 sources) Start: 04-11-2025 take 2 tablets by mouth every six hours as needed for pain Start: 03-12-2024 End: 04-12-2024 take 3 tablets by mouth four times daily acetaminophen (TYLENOL) 325 mg tablet Take 3 tablets by mouth four times daily. 0 03/12/2024 04/12/2024 Discontinued atorvastatin 40 mg oral tablet (20 sources) HMG-CoA Reductase Inhibitor Start: 06-03-2020 End: 07-12-2024 take 1 tablet by mouth at bedtime calcium carbonate 800 mg / famotidine 10 mg / magnesium hydroxide 165 mg chewable tablet (20 sources) Histamine-2 Receptor Antagonist Start: 06-03-2020 End: 07-12-2024 CENTRUM SILVER TAB (5 sources) Start: 07-07-2005 CENTRUM SILVER TAB Take one(1) tablet daily. 0 07/07/2005 Active docusate sodium 100 mg oral capsule (15 sources) Start: 04-11-2025 take 1 capsule by mouth twice daily famotidine/Ca carb/mag hydrox (PEPCID COMPLETE ORAL) (5 [...] by mouth daily at bedtime. 0 Active Lactobacillus Combination No.9 (Adult 50 Plus Probiotic) 4 billion cell capsule (6 sources) Start: 05-16-2025 take 4 capsules by mouth once daily Start: 05-16-2025 take 4 capsules by m outh once daily Lactobacillus Combination No.9 (Adult 50 Plus Probiotic) 4 billion cell capsule Active 4000 NMA PO daily May 16, 2025 12:00am administer with a meal levothyroxine sodium 0.075 m g oral tablet (20 sources) l-Thyroxine Start: 03-27-2025 take 1 tablet by shaneka once daily Start: 03-06-2025 End: 03-27-2025 take 3 tablets [...] 2021 11:07am take 1 capsule by mo [facility] once daily before breakfast levothyroxine 25 mcg cap Take 25 mcg by mouth daily before breakfast. 0 Active 24 hr metoprolol succinate 25 mg extended release oral tablet (20 sources) beta-Adrenergic Ana Start: 03-14-2024 End: 07-12-2024 take 1 tablet by mouth once daily Start: 05-27-2016 End: 03-14-2024 take 1 tablet by mouth once daily Metoprolol Tartrate 50 MG tablet Discontinued 50 mg PO DAILY May 27, 2016 12:00am March 14, 2024 2:23pm Start: 12-07-2011 End: 03-14-2024 take 1 tablet by mouth once daily Metoprolol Succinate 50 mg tablet extended release 24 hr Discontinued 50 mg PO daily March 14, 2024 12:00am March 14, 2024 3:13pm Obdbwdnd-Nyp-Bqpf-Fa-Lutein (2 sources) Start: 05-27-2016 Sixqbvxi-Juy-I iqj-Rr-Nvgcqs Active 1 EACH PO DAILY May 26, 2016 11:00pm Start: 05-27-2016 Wxudgvvl-Gnm-G fhr-Fv-Lzzumw Active 1 EACH PO DAILY May 27, 2016 12:00am Wbijidrt-Oif-Ykta-Fa-Vit K-Lut (1 source) Start: 05-27-2016 Hnrmpcjd-Hix-Hbwe-Fa-Vit K-Lut Active 1 EACH PO DAILY May 27, 2016 12:00am Nftqawzt-Hqy-Amrc-Fa-Vit K-Lut 1 EACH tablet (20 sources) Start: 05-27-2016 take 1 tablet by mouth once daily Start: 05-27-2016 take 1 tablet by shaneka th once daily Tgohkemp-Nen-Zxce-Fa-Vit K-Lut 1 EACH tablet Active 1 NMA PO DAILY May 27, 2016 12:00am SUPPLEMENT Start: 05-27-2016 take 1 tablet by shaneka th once daily Riikkwgk-Kgr-Gwgp-Fa-Vit K-Lut 1 EACH tablet Active 1 NMA PO DAILY May 27, 2016 12:00am Ely-3 Fatty Acids (3 sources) Start: 05-27-2016 take 1000 mg by mout h once daily Ely-3 Fatty Acids Active 1000 MG PO DAILY May 26, 2016 11:00pm Start: 05-27-2016 take 1000 mg by mouth once gi ly Ely-3 Fatty Acids Active 1000 MG PO DAILY May 27, 2016 12:00am Vitamin B Complex-Folic Acid (3 sources) [...] Combination No.2 (Glucosamine-Chondroi tin) 900 mg tablet (20 sources) Start: 06-04-2020 End: 03-27-2025 Antiarthritic Combination [...] aspirin 81 mg delayed release oral tablet (20 sources) Platelet Aggregation Inhibitor, Nonsteroidal Anti-inflammatory Drug Start: 05-27-2016 End: 06-03-2020 take 1 tablet by mouth once daily Aspirin 81 MG tablet Discontinued 81 mg PO DAILY@0800 May 27, 2016 12:00am June 03, 2020 8:50pm benzonatate 200 mg oral capsule (20 sources) Non-narcotic Antitussive Start: 03-16-2018 End: 05-28-2025 take 1 capsule by mouth three times daily as needed for cough Benzonatate 200 mg capsule Discontinued 200 mg PO THREE TIMES A DAY as needed for cough 20 0 March 16, 2018 12:00am May 28, 2025 2:29pm biotin 10 mg oral capsule (20 sources) Start: 05-27-2016 End: 06-05-2019 take 2 capsules by mouth once daily Biotin 10,000 MCG capsule Discontinued 01205 ug PO DAILY May 27, 2016 12:00am June 05, 2019 1:08pm Start: 05-27-2016 End: 06-05-2019 take 81035 ug by mouth once daily Biotin Discontinued 23865 MCG PO DAILY May 27, 2016 12:00am June 05, 2019 1:08pm Ca Carb-D3-Mag Jo-Zdf-Xnyt-Z n (3 sources) Start: 05-27-2016 End: 06-05-2019 Ca Carb-D3-Mag Pd-Lsm-Mzec-Z n Discontinued 1 EACH PO DAILY May 26, 2016 11:00pm June 05, 2019 12:08pm Start: 05-27-2016 End: 06-05-2019 Ca Carb-D3-Mag Jb-Byn-Swsq-Z n Discontinued 1 EACH PO DAILY May 27, 2016 12:00am June 05, 2019 1:08pm Ca Carb-D3-Mag No-Azu-Zmls-Zn 1 EACH tablet (20 sources) Start: 05-27-2016 End: 06-05-2019 take 1 tablet by mouth once daily Ca Carb-D3-Mag Mi-Tvi-Dska-Zn 1 EACH tablet Discontinued 1 NMA PO [...] capsule by mouth once daily. 0 Active cephalexin 500 mg oral capsule (20 sources) Cephalosporin Antibacterial Start: 04-10-2025 End: 05-08-2025 take 1 capsule by mouth every eight hours Cephalexin 500 mg capsule Discontinued 500 mg PO Q8H 21 7 0 April 24, 2025 12:00am April 30, 2025 12:00am May 01, 2025 12:07am cholecalciferol 0.025 mg oral tablet (20 sources) [...] 11:07am coconut oil 1000 mg oral capsule (20 sources) Start: 03-06-2025 End: 03-27-2025 Coconut Oil 1,000 mg capsule Discontinued mg PO March 06, 2025 12:00am March 27, 2025 2:26pm doxycycline hyclate 100 mg oral capsule (8 sources) Tetracycline-cl ass Drug Start: 05-02-2025 End: 05-07-2025 take 1 capsule by mouth twice daily Doxycycline Hyclate 100 mg capsule Discontinued 100 mg PO TWICE A DAY 10 5 0 May 02, 2025 12:00am May 06, 2025 12:00am May 07, 2025 12:08am estradiol 0.1 mg/ml vaginal cream (3 sources) [...] 1:09pm Flavoring Agent (Bulk) 3.7 ML oil (20 sources) Start: 05-27-2016 End: 06-05-2019 Flavoring Agent [...] doses. 8 tablet 0 03/12/2024 04/12/2024 Discontinued melatonin 10 mg oral capsule (20 sources) Start: 03-06-2025 End: 05-28-2025 take 2 capsules by mouth at bedtime as needed Melatonin 10 mg capsule Discontinued 20 mg PO BEDTIME as needed for insomnia March 06, 2025 12:00am May 28, 2025 2:30pm Start: 03-06-2025 take 1 capsule by mo [facility] at bedtime as needed Melatonin 10 mg capsule Active 10 mg PO BEDTIME as needed for insomnia March 06, 2025 12:00am Start: 06-03-2020 End: 09-15-2021 Melatonin 5 mg capsule Disco ntinued mg PO June 03, 2020 12:00am June 10, 2021 11:07am Start: 06-03-2020 End: 06-10-2021 Melatonin Discontinued MG PO June 03, 2020 12:00am June 10, 2021 11:07am MELATONIN ORAL T sadie by mouth. 0 Active Ely-3 Fatty Acids 1,000 MG capsule (20 sources) Start: 05-27-2016 End: 03-27-2025 take 1 capsule by mouth once daily Ely-3 Fatty Acids 1,000 MG capsule Discontinued 1000 mg PO DAILY May 27, 2016 12:00am March 27, 2025 2:27pm Start: 05-27-2016 take 1 capsule by mo ut once daily Ely-3 Fatty Acids 1,000 MG capsule Active 1000 mg PO DAILY May 27, 2016 12:00am Prevagen (20 sources) Start: 06-04-2020 End: 06-10-2021 Prevagen Discontinued PO GI LY 0 June 04, 2020 12:00am June 10, 2021 11:07am Start: 06-04-2020 End: 06-10-2021 Prevagen Discontinued PO GI LY June 03, 2020 11:00pm June 10, 2021 10:07am Start: 06-04-2020 End: 06-10-2021 Prevagen Discontinued PO GI LY June 04, 2020 12:00am June 10, 2021 11:07am rosuvastatin calcium 40 mg oral tablet (20 sources) HMG-CoA Reductase Inhibitor Start: 09-02-2014 End: [...] mouth once daily. 0 12/07/2011 04/12/2024 Discontinued traMADol hydrochloride 50 mg oral tablet (15 sources) Opioid Agonist Start: 04-11-2025 End: 05-16-2025 take 1 tablet by mouth every eight hours as needed for pain Tramadol 50 mg tablet Discontinued 50 mg PO Q8H as needed for pain 10 3 0 April 11, 2025 12:00am May 16, 2025 9:27am ubidecarenone 50 mg chewable tablet (20 sources) Start: 05-27-2016 End: 06-05-2019 take 10 [...] Vitamin B Complex-Folic Acid 0.4 MG tablet (20 sources) Start: 05-27-2016 End: 03-14-2024 take 1 [...] Translations: [Subdural hematoma] Onset: 03-09-2024 03-11-2024 Chronic Administrative/social admission (7 sources) Patient encounter status; Translations: [Counseling, unspecified] Onset: 05-28-2025 05-28-2025 Episodic Anxiety disorders (5 sources) Generalized anxiety disorder; Translations: [Generalized anxiety disorder] 06-10-2009 Chronic Cancer of breast (20 sources) Malignant tumor of breast ; Translations: [Malignant neoplasm of unspecified site of right female breast] Onset: 09-26-1983 06-04-2020 Chronic Comment on above: 1985 mastectomy Left Chronic obstructive pulmonary disease and bronchiectasis (20 sources) Bronchitis; Translations: [Bronchitis, not specified as acute or chronic] 06-03-2020 Episodic Conduction disorders (20 sources) Right bundle branch block; Translations: [Unspecified right bundle-branch block] Onset: 03-25-2025 06-03-2020 Chronic Disorders of lipid metabolism (20 sources) Hyperlipidemia; Translations: [Hyperlipidemia, unspecified] 06-03-2020 Chronic E Codes: Fall (20 sources) Fall; Translations: [Unspecified fall, initial encounter] [...] pain] 06-04-2020 Episodic Open wounds of extremities (20 sources) Laceration of left middle finger; Translations: [Laceration without foreign body of left middle finger without damage to nail, initial encounter] 05-01-2024 Episodic Other bone disease and musculoskeletal deformities (20 sources) Somatic dysfunction of rib; Translations: [Segmental [...] cardiac implants and grafts] Onset: 03-07-2025 Chronic Residual codes; unclassified (10 sources) Insomnia; Translations: [Insomnia, unspecified] Onset: 06-10-2009 06-10-2009 Episodic Residual codes; unclassified (1 source) Acquired absence of unspecified breast and nipple; Translations: [Acquired absence of unspecified breast and nipple] Onset: 05-28-2025 Episodic Residual codes; unclassified (1 source) Asymptomatic menopausal state; Translations: [Asymptomatic menopausal state] Onset: 05-29-2025 Episodic Superficial injury; contusion (20 sources) Hematoma of scalp; Translations: [Contusion of [...] abnormalities of breathing] Onset: 06-14-2009 06-14-2009 Episodic Other screening for suspected conditions (not mental disorders or infectious disease) (6 sources) Liver function tests abnormal; Translations: [Abnormal results of liver function studies] Onset: 02-19-2025 Resolved: 11-07-2008 11-07-2008 Episodic Results Test Name Value Interpretation Reference Range Facility Plastic Surgery Visit Report on 07-23-2025 Plastic Surgery Visit Report Normal [facility] Plastic Surgery Visit Report Normal [facility] Plastic Surgery Visit Report on 07-18-2025 Plastic Surgery Visit Report Normal [facility] Thyroid Stim Hormone (TSH)on 07-18-2025 TSH 1.750 uIU/mL Normal 0.300-4.200 [facility] Comment on above: Performed By: #### L [id number] ####[facility] [address] [place], [place], [address] MR/PAT.ANEon 07-16-2025 MR/PAT.ANE Normal [facility] Breast Limited Unilateralon 07-01-2025 Breast Limited Unilateral Normal [facility] Plastic Surgery Visit Report on 06-20-2025 Plastic Surgery Visit Report Normal [facility] Oncology Visit Reporton Oncology Visit Report Normal [facility] Plastic Surgery Visit Report on 05-28-2025 Plastic Surgery Visit Report Normal [facility] Plastic Surgery Visit Report on 05-24-2025 Plastic Surgery Visit Report Normal [facility] Bone density reportOrdered B y: Jaya Durand on 05-23-2025 Study report Skeletal system DXA [facility] Imaging Services [address] [place], [place] [address] Dexa Bone Density Study MR#: [id number] Acct: [id number] Name: BERRY ABAD JOVANA Rep #: [id number] : 1945 F 79 From: Beltran Durand MD PCP: Dr. Aria Sanchez MD Status: REG CLI Study:Dexa Bone Density Study Date of Exam: 05/21/25 Exam# [id number] Ordering Dr: Godwin Lawrence MD PROCEDURE: DEXA BONE DENSITY STUDY 05/21/2025 REASON FOR EXAM: SCREENING F, age 79 y/o . Postmenopausal. TECHNIQUE: DEXA BONE DENSITY STUDY COMPARISON: Prior study dated October 26, 2018. FINDINGS: BMD and T-SCORES Lumbar spine: 1.393 g/cm2, T-score 3.1 Levels: L1 through L4 Change from prior: Loss of 2.2%. Left femoral neck: 0.904 g/cm2, T-score 0.5 Femoral neck comparison data not recommended for monitoring change. Left total hip: 0.994 g/cm2, T-score 0.4 Change from prior: Loss of 3.4%. Right femoral neck: 0.918 g/cm2, T-score 0.6 Femoral neck comparison data not recommended for monitoring change. Right total hip: 0.988 g/cm2, T-score 0.4 Change from prior: Loss of 5.5%. The World Health Organization has defined the following categories based on bonedensity: Normal bone density: T-score equal to or greater than -1.0 Osteopenia: T-score between -1.0 and -2.5 Osteoporosis: T-score equal to or less than -2.5 FRAX (or Comparable) Fracture Risk Assessment: 10 Year Probability of Fracture: Major Osteoporotic Fracture: 7.9% Hip Fracture: 0.8% (Note: FRAX is not to be reported in setting of normal range bone density, osteoporosis on DEXA, known history of osteoporosis, prior osteoporotic hip or vertebral fracture, or for any patient undergoing pharmacological treatment for bone loss.) The National Osteoporosis Foundation (NOF) recommends pharmacological treatment for patients with a FRAX 10-year risk of 3% or higher for a hip fracture, or 20% or higher for a major osteoporotic fracture, to prevent osteoporosis and reduce fracture risk. The patient does not meet the pharmacological treatment recommendations for prevention of osteoporosis. BD/Dexa Bone Density Study IMPRESSION: NORMAL T-SCORES. Recommend follow-up as clinically warranted. Reading Location: [id number] CC: Dr. Aria Sanchez MD; Dr. Godwin Lawrence MD ~ 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Signed [facility] Dexa Bone Density Studyon Dexa Bone Density Study Normal [facility] Absolute lymphocyte countOrd ered By: Godwin Lawrence on 05-16-2025 Lymphocytes Auto (Unsp spec) [#/Vol] 1.14 10*3/uL 0.83-4.51 [facility] Absolute neutrophil countOrd ered By: Godwin Lawrence on 05-16-2025 Neutrophils (Bld) [#/Vol] 2.8 10*3/uL 2.0-7.7 [facility] Anion gap in Serum or Plasma Ordered By: Sheamerle Lawrence on 05-16-2025 Anion gap [Moles/Vol] 11 mmol/L 5-15 [facility] Automated lymphocyte count a s percentage of total leukocytesOrdered By: Sheamerle Lawrence on 05-16-2025 Lymphocytes/100 WBC Auto (Unsp spec) 23.9 % 19-41 [facility] BUN/creatinine ratioOrdered By: [facility] on 05-16-2025 Urea nitrogen/Creatinine [Mass ratio] 10.4 mg/mg 10-20 [facility] Basophil percentageOrdered B y: Godwin Lawrence on 05-16-2025 Basophils/100 WBC (Bld) 0.8 % 0-1 [facility] Bilirubin, totalOrdered By: [facility] on 05-16-2025 Bilirubin [Mass/Vol] 0.50 mg/dL 0.00-1.30 [facility] CBC W/Diff, Automatedon 04-27 Absolute Lymph 1.14 X10 3/uL Normal 0.83-4.51 [facility] Comment on above: Performed By: #### L [id number], [id number], L100.0100 ####[facility] [address] [place], [address] Absolute Neut 2.8 X10 3/uL Normal 2.0-7.7 [facility] Comment on above: Performed By: #### L [id number], [id number], [id number] ####[facility] [address] [place], [address] Basophils/100 WBC (Bld) 0.8 % Normal 0-1 [facility] Comment on above: Performed By: #### L [id number], [id number], [id number] ####[facility] [address] [place], [address] Eosinophils/100 WBC (Bld) 4.8 % Normal 0-5 [facility] Comment on above: Performed By: #### L [id number], [id number], [id number] ####[facility] [address] [place], [address] Erythrocyte distribution width (RBC) [Ratio] 12.0 % Normal 11.6-14.6 [facility] Comment on above: Performed By: #### L [id number], [id number], [id number] ####[facility] [address] [place], [address] Hematocrit (Bld) [Volume fraction] 42.8 % Normal 37-47 [facility] Comment on above: Performed By: #### L [id number], [id number], [id number] ####[facility] [address] [place], [address] Hemoglobin (Bld) [Mass/Vol] 14.3 g/dL Normal 12.0-15.0 [facility] Comment on above: Performed By: #### L 900.0098, L500.4050, L100.0100 ####[facility] [address] [place], [address] IG% 0.200 Normal 0.0-0.9 [facility] Comment on above: Result Comment: IG% - Immature Granulocytes (promyelocytes, myelocytes andmetamyelocytes) > 1% indicates that a LEFT SHIFT is Present. Performed By: #### L 900.0098, L500.4050, L100.0100 ####[facility] [address] [place], [address] Lymphocytes/100 WBC (Bld) 23.9 % Normal 19-41 [facility] Comment on above: Performed By: #### L 900.0098, L500.4050, L100.0100 ####[facility] [address] [place], [address] MCH (RBC) [Entitic mass] 33.2 pg High 27.0-32.0 [facility] Comment on above: Performed By: #### L 900.0098, L500.4050, L100.0100 ####[facility] [address] [place], [address] MCHC (RBC) [Mass/Vol] 33.4 g/dL Normal 32-36 [facility] Comment on above: Performed By: #### L 900.0098, L500.4050, L100.0100 ####[facility] [address] [place], [address] MCV (RBC) [Entitic vol] 99.3 fL High 81-99 [facility] Comment on above: Performed By: #### L 900.0098, L500.4050, L100.0100 ####[facility] [address] [place], [address] Monocytes/100 WBC (Bld) 12.2 % High 0-10 [facility] Comment on above: Performed By: #### L 900.0098, L500.4050, L100.0100 ####[facility] [address] [place], [address] Neutrophils/100 WBC (Bld) 58.1 % Normal 47-70 [facility] Comment on above: Performed By: #### L 900.0098, L500.4050, L100.0100 ####[facility] [address] [place], [address] Nucleated RBC (Bld) [#/Vol] 0 10*3/uL Normal 0-5 [facility] Comment on above: Performed By: #### L 900.0098, L500.4050, L100.0100 ####[facility] [address] [place], [address] Platelet mean volume (Bld) [Entitic vol] 9.2 fL Normal 6.2-12.0 [facility] Comment on above: Performed By: #### L 900.0098, L500.4050, L100.0100 ####[facility] [address] [place], [address] Platelets (Bld) [#/Vol] 237 10*3/uL Normal 150-450 [facility] Comment on above: Performed By: #### L 900.0098, L500.4050, L100.0100 ####[facility] [address] [place], [address] RBC (Bld) [#/Vol] 4.31 10*6/uL Normal 4.2-5.4 [facility] Comment on above: Performed By: #### L 900.0098, L500.4050, L100.0100 ####[facility] [address] [place], [address] RDW SD 44.1 fl High 35.1-43.9 [facility] Comment on above: Performed By: #### L 900.0098, L500.4050, L100.0100 ####[facility] [address] [place], [address] WBC (Bld) [#/Vol] 4.8 10*3/uL Normal 4.4-11.0 [facility] Comment on above: Performed By: #### L 900.0098, L500.4050, L100.0100 ####[facility] [address] [place], [address] Carbon dioxide, total [Moles /volume] in Central venous bloodOrdered By: Godwin Lawrence on 05-16-2025 CO2 [Moles/Vol] 25.7 mmol/L 21.0-32.0 [facility] Chloride assayOrdered By: Geronimo Lawrence on 05-16-2025 Chloride [Moles/Vol] 99 mmol/L 98-108 [facility] Comprehensive Metabolic Prof ilon 05-16-2025 Albumin [Mass/Vol] 4.4 g/dL Normal 3.4-4.8 [facility] Comment on above: Performed By: #### L 900.0098, L500.4050, L100.0100 ####[facility] [address] [place], [address] Albumin/Globulin [Mass ratio] 1.7 {ratio} Normal 0.9-2.4 [facility] Comment on above: Performed By: #### L 900.0098, L500.4050, L100.0100 ####[facility] [address] [place], [address] ALK PHOS 93 U/L Normal 35-104 [facility] Comment on above: Performed By: #### L 900.0098, L500.4050, L100.0100 ####[facility] [address] [place], [address] ALT [Catalytic activity/Vol] 20 U/L Normal <=34 [facility] Comment on above: Performed By: #### L 900.0098, L500.4050, L100.0100 ####[facility] [address] [place], [address] AST [Catalytic activity/Vol] 38 U/L High <=31 [facility] Comment on above: Performed By: #### L 900.0098, L500.4050, L100.0100 ####[facility] [address] [place], [address] Bilirubin [Mass/Vol] 0.50 mg/dL Normal 0.00-1.30 [facility] Comment on above: Performed By: #### L 900.0098, L500.4050, L100.0100 ####[facility] [address] [place], [address] BUN/CRE 10.4 RATIO Normal 10-20 [facility] Comment on above: Performed By: #### L 900.0098, L500.4050, L100.0100 ####[facility] [address] [place], [address] Calcium [Mass/Vol] 9.6 mg/dL Normal 7.6-11.0 [facility] Comment on above: Performed By: #### L 900.0098, L500.4050, L100.0100 ####[facility] [address] [place], [address] Chloride [Moles/Vol] 99 mmol/L Normal 98-108 [facility] Comment on above: Performed By: #### L 900.0098, L500.4050, L100.0100 ####[facility] [address] [place], [address] CO2 [Moles/Vol] 25.7 mmol/L Normal 21.0-32.0 [facility] Comment on above: Performed By: #### L 900.0098, L500.4050, L100.0100 ####[facility] [address] [place], [address] Creatinine [Mass/Vol] 1.06 mg/dL Normal 0.70-1.20 [facility] Comment on above: Performed By: #### L 900.0098, L500.4050, L100.0100 ####[facility] [address] [place], [address] GAP 11 Normal 5-15 [facility] Comment on above: Performed By: #### L 900.0098, L500.4050, L100.0100 ####[facility] [address] [place], [address] GFR/1.73 sq M.predicted among non-blacks MDRD (S/P/Bld) [Vol rate/Area] 53 mL/min/{1.73_m2} Low >60 [facility] Comment on above: Result Comment: mL/m in/1.73m2 CKD-EPI Creatinine Equation (2020) Performed By: #### L 900.0098, L500.4050, L100.0100 ####[facility] [address] [place], [address] Globulin (S) [Mass/Vol] 2.6 g/dL Normal 2.2-4.2 [facility] Comment on above: Performed By: #### L 900.0098, L500.4050, L100.0100 ####[facility] [address] [place], [address] Glucose [Mass/Vol] 110 mg/dL High 70-99 [facility] Comment on above: Performed By: #### L 900.0098, L500.4050, L100.0100 ####[facility] [address] [place], [address] Potassium [Moles/Vol] 4.5 mmol/L Normal 3.3-5.1 [facility] Comment on above: Performed By: #### L 900.0098, L500.4050, L100.0100 ####[facility] [address] [place], [address] Sodium [Moles/Vol] 137 mmol/L Normal 133-145 [facility] Comment on above: Performed By: #### L 900.0098, L500.4050, L100.0100 ####[facility] [address] [place], [address] T PROT 7.0 g/dL Normal 5.9-8.4 [facility] Comment on above: Performed By: #### L 900.0098, L500.4050, L100.0100 ####[facility] [address] [place], [address] Urea nitrogen [Mass/Vol] 11 mg/dL Normal 4-19 [facility] Comment on above: Performed By: #### L 900.0098, L500.4050, L100.0100 ####[facility] [address] [place], [place], [id number] Eosinophil percentageOrdered By: [facility] on 05-16-2025 Eosinophils/100 WBC (Bld) 4.8 % 0-5 [facility] Erythrocyte distribution wid th ratioOrdered By: [facility] Howard on 05-16-2025 Erythrocyte distribution width (RBC) [Ratio] 12.0 % 11.6-14.6 [facility] Erythrocyte distribution wid th standard deviationOrdered By: [facility] on 05-16-2025 Erythrocyte distribution width (RBC) [Ratio] 44.1 fl High 35.1-43.9 [facility] Glomerular filtration rate ( GFR) estimation/1.73 sq m using serum, plasma, or whole bOrdered By: [facility] on 05-16-2025 GFR/1.73 sq M.predicted among non-blacks MDRD (S/P/Bld) [Vol rate/Area] 53 mL/min/{1.73_m2} Low >60 [facility] Comment on above: mL/min/1.73m2 CKD-EP I Creatinine Equation (2020) Hematocrit Auto (Bld) [Volum e fraction]Ordered By: [facility] Howard on 05-16-2025 Hematocrit (Bld) [Volume fraction] 42.8 % 37-47 [facility] Hemoglobin measurementOrdere d By: Godwin Lawrence on 05-16-2025 Hemoglobin (Bld) [Mass/Vol] 14.3 g/dL 12.0-15.0 [facility] Immature granulocytes/100 WB C Auto (Bld)Ordered By: Godwin Lawrence on 05-16-2025 Immature granulocytes/100 WBC (Bld) 0.200 % 0.0-0.9 [facility] Comment on above: IG% - Immature Granu locytes (promyelocytes, myelocytes and metamyelocytes) > 1% indicates that a LEFT SHIFT is Present. Laboratory - Chemistry and C hemistry - challengeOrdered By: Godwin Lawrence on 05-16-2025 AST [Catalytic activity/Vol] 38 U/L High <32 [facility] MCV (mean corpuscular volume ) determinationOrdered By: Godwin Lawrence on 05-16-2025 MCV (RBC) [Entitic vol] 99.3 fL High 81-99 [facility] Mean corpuscular hemoglobin (MCH) determinationOrdered By: Godwin Lawrence on 05-16-2025 MCH (RBC) [Entitic mass] 33.2 pg High 27.0-32.0 [facility] Mean corpuscular hemoglobin concentration (MCHC) determinationOrdered By: Godwin Lawrence on 05-16-2025 MCHC (RBC) [Mass/Vol] 33.4 g/dL 32-36 [facility] Mean platelet volume determi nationOrdered By: Godwin Lawrence on 05-16-2025 Platelet mean volume (Bld) [Entitic vol] 9.2 fL 6.2-12.0 [facility] Monocyte percentageOrdered B y: Godwin Lawrence on 05-16-2025 Monocytes/100 WBC (Bld) 12.2 % High 0-10 [facility] NATERAon 05-16-2025 NATURA SEE SCANNED REPORT Normal [facility] Comment on above: Performed By: #### L 900.0098, L500.4050, L100.0100 ####[facility] [address] [place], [address] Neutrophil percentageOrdered By: Godwin Lawrence on 05-16-2025 Neutrophils/100 WBC (Bld) 58.1 % 47-70 [facility] Nucleated red blood cell per centageOrdered By: Godwin Lawrence on 05-16-2025 Nucleated RBC/100 WBC (Bld) [Ratio] 0 % 0-5 [facility] Oncology Visit Reporton 04-27 Oncology Visit Report Normal [facility] Plastic Surgery Visit Report on 05-16-2025 Plastic Surgery Visit Report Normal [facility] Platelet countOrdered By: Geronimo Lawrence on 05-16-2025 Platelets (Bld) [#/Vol] 237 10*3/uL 150-450 [facility] Potassium measurement (mass/ volume)Ordered By: Godwin Lawrence on 05-16-2025 Potassium (Unsp spec) [Mass/Vol] 4.5 mmol/L 3.3-5.1 [facility] RBC Auto (Bld) [#/Vol]Ordere d By: Godwin Lawrence on 05-16-2025 RBC (Bld) [#/Vol] 4.31 10*6/uL 4.2-5.4 [facility] Serum creatinine measurement (mass/volume)Ordered By: Godwin Lawrence on 05-16-2025 Creatinine [Mass/Vol] 1.06 mg/dL 0.70-1.20 [facility] Serum globulin measurementOr dered By: Godwin Lawrence on 05-16-2025 Globulin (S) [Mass/Vol] 2.6 g/dL 2.2-4.2 [facility] Serum glucose measurement (m ass/volume)Ordered By: Godwin Lawrence on 05-16-2025 Glucose [Mass/Vol] 110 mg/dL High 70-99 [facility] Serum or plasma alanine kirby otransferase (ALT) measurementOrdered By: Godwin Lawrence on 05-16-2025 ALT [Catalytic activity/Vol] 20 U/L <35 [facility] Serum or plasma albumin moncho urement (mass/volume)Ordered By: Godwin Lawrence on 05-16-2025 Albumin [Mass/Vol] 4.4 g/dL 3.4-4.8 [facility] Serum or plasma albumin/glob ulin mass ratioOrdered By: Godwin Lawrence on 05-16-2025 Albumin/Globulin [Mass ratio] 1.7 {ratio} 0.9-2.4 [facility] Serum or plasma alkaline sandie sphatase measurementOrdered By: Godwin Lawrence on 05-16-2025 ALP [Catalytic activity/Vol] 93 U/L 35-104 [facility] Serum or plasma calcium moncho urement (mass/volume)Ordered By: Godwin Lawrence on 05-16-2025 Calcium [Mass/Vol] 9.6 mg/dL 7.6-11.0 [facility] Serum or plasma urea nitroge n measurement (mass/volume)Ordered By: Godwin Howard on 05-16-2025 Urea nitrogen [Mass/Vol] 11 mg/dL 4-19 [facility] Sodium levelOrdered By: Shea bloom Howard on 05-16-2025 Sodium [Moles/Vol] 137 mmol/L 133-145 [facility] Total proteinOrdered By: Brady willett Howard on 05-16-2025 Protein [Mass/Vol] 7.0 g/dL 5.9-8.4 [facility] White blood cell (WBC) count Ordered By: Sheamerle Lawrence on 05-16-2025 WBC (Bld) [#/Vol] 4.8 10*3/uL 4.4-11.0 [facility] Plastic Surgery Visit Report on 05-08-2025 Plastic Surgery Visit Report Normal [facility] TXT:Device Implant / Explant on 05-06-2025 TXT:Device Implant / Explant Normal [facility] Plastic Surgery Visit Report on 05-02-2025 Plastic Surgery Visit Report Normal [facility] Plastic Surgery Visit Report on 04-26-2025 Plastic Surgery Visit Report Normal [facility] Surgery Visit Reporton 04-24 Surgery Visit Report Normal [facility] Folate [Moles/volume] in Ser um or PlasmaOrdered By: Aria Sanchez on 04-23-2025 Folate [Moles/Vol] > 40.00 ng/mL High 4.60-34.80 [facility] Folates,Serum (Folic Acid)on 04-23-2025 FOLATES,SERUM > 40.00 High 4.60-34.80 [facility] Comment on above: Order Comment: Y Performed By: #### L 503.0106, L506.0200 ####[facility] [address] [place], [place], [address] Vitamin B12on 04-23-2025 Cobalamin (Vitamin B12) [Mass/Vol] 693 pg/mL Normal 180-914 [facility] Comment on above: Performed By: #### L 503.0106, L506.0200 ####[facility] [address] [place], [place], [address] Vitamin B12 ser/plasOrdered By: Aria Sanchez on 04-23-2025 Cobalamin (Vitamin B12) [Mass/Vol] 693 pg/mL 180-914 [facility] Absolute lymphocyte countOrd ered By: Aria Sanchez on 04-19-2025 Lymphocytes Auto (Unsp spec) [#/Vol] 1.19 10*3/uL 0.83-4.51 [facility] Absolute neutrophil countOrd ered By: Aria Sanchez on 04-19-2025 Neutrophils (Bld) [#/Vol] 3.7 10*3/uL 2.0-7.7 [facility] Anion gap in Serum or Plasma Ordered By: Aria Sanchez on 04-19-2025 Anion gap [Moles/Vol] 10 mmol/L 5- [facility] Automated lymphocyte count a s percentage of total leukocytesOrdered By: Aria Sanchez on 04-19-2025 Lymphocytes/100 WBC Auto (Unsp spec) 20.6 % - [facility] BUN/creatinine ratioOrdered By: Aria Sanchez on 04-19-2025 Urea nitrogen/Creatinine [Mass ratio] 15.3 mg/mg 10- [facility] Basophil percentageOrdered B y: Aria Sanchez on 04-19-2025 Basophils/100 WBC (Bld) 0.9 % 0-1 [facility] Bilirubin, totalOrdered By: Aria Sanchez on 04-19-2025 Bilirubin [Mass/Vol] 0.51 mg/dL 0.00-1.30 [facility] CBC W/Diff, Automatedon 03-27 Absolute Lymph 1.19 X10 3/uL Normal 0.83-4.51 [facility] Comment on above: Order Comment: Order Date: 04/19/25Order Info: 0184-1 - CBCD Performed By: #### L 501.07750, L501.9520, L506.0400, L500.4050, L100.0100 ####[facility] [address] [place], [place], [address] Absolute Neut 3.7 X10 3/uL Normal 2.0-7.7 [facility] Comment on above: Order Comment: Order Date: 04/19/25Order Info: 0184-1 - CBCD Performed By: #### L 501.77781, L501.9520, L506.0400, L500.4050, L100.0100 ####[facility] [address] [place], [address] Basophils/100 WBC (Bld) 0.9 % Normal 0-1 [facility] Comment on above: Order Comment: Order Date: 04/19/25Order Info: 0184-1 - CBCD Performed By: #### L 501.33378, L501.9520, L506.0400, L500.4050, L100.0100 ####[facility] [address] [place], [address] Eosinophils/100 WBC (Bld) 2.8 % Normal 0-5 [facility] Comment on above: Order Comment: Order Date: 04/19/25Order Info: 0184-1 - CBCD Performed By: #### L 501.11305, L501.9520, L506.0400, L500.4050, L100.0100 ####[facility] [address] [place], [address] Erythrocyte distribution width (RBC) [Ratio] 12.9 % Normal 11.6-14.6 [facility] Comment on above: Order Comment: Order Date: 04/19/25Order Info: 0184-1 - CBCD Performed By: #### L 501.56951, L501.9520, L506.0400, L500.4050, L100.0100 ####[facility] [address] [place], [address] Hematocrit (Bld) [Volume fraction] 40.7 % Normal 37-47 [facility] Comment on above: Order Comment: Order Date: 04/19/25Order Info: 0184-1 - CBCD Performed By: #### L 501.58925, L501.9520, L506.0400, L500.4050, L100.0100 ####[facility] [address] [place], [address] Hemoglobin (Bld) [Mass/Vol] 13.1 g/dL Normal 12.0-15.0 [facility] Comment on above: Order Comment: Order Date: 04/19/25Order Info: 0184-1 - CBCD Performed By: #### L 501.96529, L501.9520, L506.0400, L500.4050, L100.0100 ####[facility] [address] [place], [address] IG% 0.300 Normal 0.0-0.9 [facility] Comment on above: Order Comment: Order Date: 04/19/25Order Info: 0184-1 - CBCD Result Comment: IG% - Immature Granulocytes (promyelocytes, myelocytes andmetamyelocytes) > 1% indicates that a LEFT SHIFT is Present. Performed By: #### L 501.56567, L501.9520, L506.0400, L500.4050, L100.0100 ####[facility] [address] [place], [address] Lymphocytes/100 WBC (Bld) 20.6 % Normal 19-41 [facility] Comment on above: Order Comment: Order Date: 04/19/25Order Info: 0184-1 - CBCD Performed By: #### L 501.13415, L501.9520, L506.0400, L500.4050, L100.0100 ####[facility] [address] [place], [address] MCH (RBC) [Entitic mass] 33.0 pg High 27.0-32.0 [facility] Comment on above: Order Comment: Order Date: 04/19/25Order Info: 0184-1 - CBCD Performed By: #### L 501.67429, L501.9520, L506.0400, L500.4050, L100.0100 ####[facility] [address] [place], [address] MCHC (RBC) [Mass/Vol] 32.2 g/dL Normal 32-36 [facility] Comment on above: Order Comment: Order Date: 04/19/25Order Info: 0184-1 - CBCD Performed By: #### L 501.30155, L501.9520, L506.0400, L500.4050, L100.0100 ####[facility] [address] [place], [address] MCV (RBC) [Entitic vol] 102.5 fL High 81-99 [facility] Comment on above: Order Comment: Order Date: 04/19/25Order Info: 018- - CBCD Performed By: #### L 501.02527, L501.9520, L506.0400, L500.4050, L100.0100 ####[facility] [address] [place], [address] Monocytes/100 WBC (Bld) 11.6 % High 0-10 [facility] Comment on above: Order Comment: Order Date: 04/19/25Order Info: 0184- - CBCD Performed By: #### L 501.75184, L501.9520, L506.0400, L500.4050, L100.0100 ####[facility] [address] [place], [address] Neutrophils/100 WBC (Bld) 63.8 % Normal 47-70 [facility] Comment on above: Order Comment: Order Date: 04/19/25Order Info: 0184-1 - CBCD Performed By: #### L 501.45624, L501.9520, L506.0400, L500.4050, L100.0100 ####[facility] [address] [place], [address] Nucleated RBC (Bld) [#/Vol] 0 10*3/uL Normal 0-5 [facility] Comment on above: Order Comment: Order Date: 04/19/25Order Info: 0184-1 - CBCD Performed By: #### L 501.18470, L501.9520, L506.0400, L500.4050, L100.0100 ####[facility] [address] [place], [address] Platelet mean volume (Bld) [Entitic vol] 9.4 fL Normal 6.2-12.0 [facility] Comment on above: Order Comment: Order Date: 04/19/25Order Info: 0184-1 - CBCD Performed By: #### L 501.47349, L501.9520, L506.0400, L500.4050, L100.0100 ####[facility] [address] [place], [address] Platelets (Bld) [#/Vol] 261 10*3/uL Normal 150-450 [facility] Comment on above: Order Comment: Order Date: 04/19/25Order Info: 0184-1 - CBCD Performed By: #### L 501.22534, L501.9520, L506.0400, L500.4050, L100.0100 ####[facility] [address] [place], [address] RBC (Bld) [#/Vol] 3.97 10*6/uL Low 4.2-5.4 [facility] Comment on above: Order Comment: Order Date: 04/19/25Order Info: 0184-1 - CBCD Performed By: #### L 501.19058, L501.9520, L506.0400, L500.4050, L100.0100 ####[facility] [address] [place], [address] RDW SD 49.1 fl High 35.1-43.9 [facility] Comment on above: Order Comment: Order Date: 04/19/25Order Info: 0184- - CBCD Performed By: #### L 501.86016, L501.9520, L506.0400, L500.4050, L100.0100 ####[facility] [address] [place], [address] WBC (Bld) [#/Vol] 5.8 10*3/uL Normal 4.4-11.0 [facility] Comment on above: Order Comment: Order Date: 04/19/25Order Info: 0184- - CBCD Performed By: #### L 501.82439, L501.9520, L506.0400, L500.4050, L100.0100 ####[facility] [address] [place], [place], [address] Carbon dioxide, total [Moles /volume] in Central venous bloodOrdered By: Aria Sanchez on 04-19-2025 CO2 [Moles/Vol] 25.9 mmol/L 21.0-32.0 [facility] Chloride assayOrdered By: Jaylon Sanchez on 04-19-2025 Chloride [Moles/Vol] 106 mmol/L 98-108 [facility] Comprehensive Metabolic Prof ilon 04-19-2025 Albumin [Mass/Vol] 4.0 g/dL Normal 3.4-4.8 [facility] Comment on above: Order Comment: Order Date: 04/19/25Order Info: [id number] - CMPOrder Info: 3051-0 - D0XDvdnt Info: 3016-3 - TSHOrder Info: 3024-7 - T4F Performed By: #### L 501.28171, L501.9520, L506.0400, L500.4050, L100.0100 ####[facility] [address] [place], [address] Albumin/Globulin [Mass ratio] 1.6 {ratio} Normal 0.9-2.4 [facility] Comment on above: Order Comment: Order Date: 04/19/25Order Info: 86-1 - CMPOrder Info: 3051-0 - X6QLypxa Info: 3016-3 - TSHOrder Info: 3024-7 - T4F Performed By: #### L 501.70476, L501.9520, L506.0400, L500.4050, L100.0100 ####[facility] [address] [place], [address] ALK PHOS 86 U/L Normal 35-104 [facility] Comment on above: Order Comment: Order Date: 04/19/25Order Info: 785-1 - CMPOrder Info: 3051-0 - H8GXpdql Info: 3016-3 - TSHOrder Info: 3024-7 - T4F Performed By: #### L 501.15822, L501.9520, L506.0400, L500.4050, L100.0100 ####[facility] [address] [place], [address] ALT [Catalytic activity/Vol] 18 U/L Normal <=34 [facility] Comment on above: Order Comment: Order Date: 04/19/25Order Info: 07-1 - CMPOrder Info: 3051-0 - C7RIbygf Info: 3016-3 - TSHOrder Info: 3024-7 - T4F Performed By: #### L 501.28658, L501.9520, L506.0400, L500.4050, L100.0100 ####[facility] [address] [place], [address] AST [Catalytic activity/Vol] 26 U/L Normal <=31 [facility] Comment on above: Order Comment: Order Date: 04/19/25Order Info: 0786-1 - CMPOrder Info: 3051-0 - Z6ZEfgvg Info: 3016-3 - TSHOrder Info: 3024-7 - T4F Performed By: #### L 501.58903, L501.9520, L506.0400, L500.4050, L100.0100 ####[facility] [address] [place], [address] Bilirubin [Mass/Vol] 0.51 mg/dL Normal 0.00-1.30 [facility] Comment on above: Order Comment: Order Date: 04/19/25Order Info: 0786-1 - CMPOrder Info: 3051-0 - J1CXrhqf Info: 3016-3 - TSHOrder Info: 3024-7 - T4F Performed By: #### L 501.64255, L501.9520, L506.0400, L500.4050, L100.0100 ####[facility] [address] [place], [address] BUN/CRE 15.3 RATIO Normal 10-20 [facility] Comment on above: Order Comment: Order Date: 04/19/25Order Info: 0786-1 - CMPOrder Info: 3051-0 - A2ATusqd Info: 3016-3 - TSHOrder Info: 3024-7 - T4F Performed By: #### L 501.85783, L501.9520, L506.0400, L500.4050, L100.0100 ####[facility] [address] [place], [address] Calcium [Mass/Vol] 9.1 mg/dL Normal 7.6-11.0 [facility] Comment on above: Order Comment: Order Date: 04/19/25Order Info: 0786-1 - CMPOrder Info: 3051-0 - O9XLgdtz Info: 3016-3 - TSHOrder Info: 3024-7 - T4F Performed By: #### L 501.73577, L501.9520, L506.0400, L500.4050, L100.0100 ####[facility] [address] [place], [address] Chloride [Moles/Vol] 106 mmol/L Normal 98-108 [facility] Comment on above: Order Comment: Order Date: 04/19/25Order Info: 86-1 - CMPOrder Info: 3051-0 - L3XLxdfs Info: 3016-3 - TSHOrder Info: 3024-7 - T4F Performed By: #### L 501.58992, L501.9520, L506.0400, L500.4050, L100.0100 ####[facility] [address] [place], [address] CO2 [Moles/Vol] 25.9 mmol/L Normal 21.0-32.0 [facility] Comment on above: Order Comment: Order Date: 04/19/25Order Info: 785-1 - CMPOrder Info: 3051-0 - W6KHpose Info: 3016-3 - TSHOrder Info: 3024-7 - T4F Performed By: #### L 501.66495, L501.9520, L506.0400, L500.4050, L100.0100 ####[facility] [address] [place], [place], [address] Creatinine [Mass/Vol] 1.09 mg/dL Normal 0.70-1.20 [facility] Comment on above: Order Comment: Order Date: 04/19/25Order Info: 785-1 - CMPOrder Info: 3051-0 - S3VHltzf Info: 3016-3 - TSHOrder Info: 3024-7 - T4F Performed By: #### L 501.96930, L501.9520, L506.0400, L500.4050, L100.0100 ####[facility] [address] [place], [address] GAP 10 Normal 5-15 [facility] Comment on above: Order Comment: Order Date: 04/19/25Order Info: 785-1 - CMPOrder Info: 3051-0 - D0SQkhyb Info: 3016-3 - TSHOrder Info: 3024-7 - T4F Performed By: #### L 501.38379, L501.9520, L506.0400, L500.4050, L100.0100 ####[facility] [address] [place], [address] GFR/1.73 sq M.predicted among non-blacks MDRD (S/P/Bld) [Vol rate/Area] 52 mL/min/{1.73_m2} Low >60 [facility] Comment on above: Order Comment: Order Date: 04/19/25Order Info: 86-1 - CMPOrder Info: 305-0 - Q8EWotzh Info: 6-3 - TSHOrder Info: 3024-7 - T4F Result Comment: mL/m in/1.73m2 CKD-EPI Creatinine Equation (2020) Performed By: #### L 501.90211, L501.9520, L506.0400, L500.4050, L100.0100 ####[facility] [address] [place], [address] Globulin (S) [Mass/Vol] 2.5 g/dL Normal 2.2-4.2 [facility] Comment on above: Order Comment: Order Date: 04/19/25Order Info: 785-09 - CMPOrder Info: 0 - I9OTvmqc Info: 3 - TSHOrder Info: 3024-7 - T4F Performed By: #### L 501.72548, L501.9520, L506.0400, L500.4050, L100.0100 ####[facility] [address] [place], [address] Glucose [Mass/Vol] 99 mg/dL Normal 70-99 [facility] Comment on above: Order Comment: Order Date: 04/19/25Order Info: 785-1 - CMPOrder Info: 0 - L8EFnmct Info: 3 - TSHOrder Info: 3024-7 - T4F Performed By: #### L 501.67911, L501.9520, L506.0400, L500.4050, L100.0100 ####[facility] [address] [place], [address] Potassium [Moles/Vol] 4.5 mmol/L Normal 3.3-5.1 [facility] Comment on above: Order Comment: Order Date: 04/19/25Order Info: 0786-1 - CMPOrder Info: 3051-0 - M1VRuvuk Info: 3016-3 - TSHOrder Info: 3024-7 - T4F Performed By: #### L 501.43297, L501.9520, L506.0400, L500.4050, L100.0100 ####[facility] [address] [place], [address] Sodium [Moles/Vol] 142 mmol/L Normal 133-145 [facility] Comment on above: Order Comment: Order Date: 04/19/25Order Info: 07-1 - CMPOrder Info: 3051-0 - T7JUlkjg Info: 3016-3 - TSHOrder Info: 3024-7 - T4F Performed By: #### L 501.37921, L501.9520, L506.0400, L500.4050, L100.0100 ####[facility] [address] [place], [address] T PROT 6.5 g/dL Normal 5.9-8.4 [facility] Comment on above: Order Comment: Order Date: 04/19/25Order Info: 0786-1 - CMPOrder Info: 3050-0 - Q1IMikvw Info: 3016-3 - TSHOrder Info: 3024-7 - T4F Performed By: #### L 501.38305, L501.9520, L506.0400, L500.4050, L100.0100 ####[facility] [address] [place], [address] Urea nitrogen [Mass/Vol] 17 mg/dL Normal 4-19 [facility] Comment on above: Order Comment: Order Date: 04/19/25Order Info: 0786-1 - CMPOrder Info: 3051-0 - I8KJtkee Info: 3016-3 - TSHOrder Info: 3024-7 - T4F Performed By: #### L 501.09013, L501.9520, L506.0400, L500.4050, L100.0100 ####[facility] [address] [place], [place], [address] Eosinophil percentageOrdered By: Aria Sanchez on 04-19-2025 Eosinophils/100 WBC (Bld) 2.8 % 0-5 [facility] Erythrocyte distribution wid th ratioOrdered By: Aria Sanchez on 04-19-2025 Erythrocyte distribution width (RBC) [Ratio] 12.9 % 11.6-14.6 [facility] Erythrocyte distribution wid th standard deviationOrdered By: Aria Sanchez on 04-19-2025 Erythrocyte distribution width (RBC) [Ratio] 49.1 fl High 35.1-43.9 [facility] Free T3on 04-19-2025 Free T3 [Mass/Vol] 2.3 pg/mL Normal 2.18-3.98 [facility] Comment on above: Order Comment: Order Date: 04/19/25Order Info: 0786-1 - CMPOrder Info: 3051-0 - C3PCcvqn Info: 3016-3 - TSHOrder Info: 3024-7 - T4F Performed By: #### L 501.86674, L501.9520, L506.0400, L500.4050, L100.0100 ####[facility] [address] [place], [place], [id number] Free N9Gvrpkkr By: Aria carr on 04-19-2025 Free T3 [Mass/Vol] 2.3 pg/mL 2.18-3.98 [facility] Glomerular filtration rate ( GFR) estimation/1.73 sq m using serum, plasma, or whole bOrdered By: Aria Sanchez on 04-19-2025 GFR/1.73 sq M.predicted among non-blacks MDRD (S/P/Bld) [Vol rate/Area] 52 mL/min/{1.73_m2} Low >60 [facility] Comment on above: mL/min/1.73m2 CKD-EP I Creatinine Equation (2020) Hematocrit Auto (Bld) [Volum e fraction]Ordered By: Aria Sanchez on 04-19-2025 Hematocrit (Bld) [Volume fraction] 40.7 % 37-47 [facility] Hemoglobin measurementOrdere d By: Aria Sanchez on 04-19-2025 Hemoglobin (Bld) [Mass/Vol] 13.1 g/dL 12.0-15.0 [facility] Immature granulocytes/100 WB C Auto (Bld)Ordered By: Aria Sanchez on 04-19-2025 Immature granulocytes/100 WBC (Bld) 0.300 % 0.0-0.9 [facility] Comment on above: IG% - Immature Granu locytes (promyelocytes, myelocytes and metamyelocytes) > 1% indicates that a LEFT SHIFT is Present. Laboratory - Chemistry and C hemistry - challengeOrdered By: Aria Sanchez on 04-19-2025 AST [Catalytic activity/Vol] 26 U/L <32 [facility] MCV (mean corpuscular volume ) determinationOrdered By: Aria Sanchez on 04-19-2025 MCV (RBC) [Entitic vol] 102.5 fL High 81-99 [facility] Mean corpuscular hemoglobin (MCH) determinationOrdered By: Aria Sanchez on 04-19-2025 MCH (RBC) [Entitic mass] 33.0 pg High 27.0-32.0 [facility] Mean corpuscular hemoglobin concentration (MCHC) determinationOrdered By: Aria Sanchez on 04-19-2025 MCHC (RBC) [Mass/Vol] 32.2 g/dL 32-36 [facility] Mean platelet volume determi nationOrdered By: Aria Sanchez on 04-19-2025 Platelet mean volume (Bld) [Entitic vol] 9.4 fL 6.2-12.0 [facility] Monocyte percentageOrdered B y: Aria Sanchez on 04-19-2025 Monocytes/100 WBC (Bld) 11.6 % High 0-10 [facility] Neutrophil percentageOrdered By: Aria Sanchez on 04-19-2025 Neutrophils/100 WBC (Bld) 63.8 % 47-70 [facility] Nucleated red blood cell per centageOrdered By: Aria Sanchez on 04-19-2025 Nucleated RBC/100 WBC (Bld) [Ratio] 0 % 0-5 [facility] Platelet countOrdered By: Jaylon Sanchez on 04-19-2025 Platelets (Bld) [#/Vol] 261 10*3/uL 150-450 [facility] Potassium measurement (mass/ volume)Ordered By: Aria Sanchez on 04-19-2025 Potassium (Unsp spec) [Mass/Vol] 4.5 mmol/L 3.3-5.1 [facility] RBC Auto (Bld) [#/Vol]Ordere d By: Aria Sanchez on 04-19-2025 RBC (Bld) [#/Vol] 3.97 10*6/uL Low 4.2-5.4 [facility] Serum creatinine measurement (mass/volume)Ordered By: Aria Sanchez on 04-19-2025 Creatinine [Mass/Vol] 1.09 mg/dL 0.70-1.20 [facility] Serum globulin measurementOr dered By: Aria Sanchez on 04-19-2025 Globulin (S) [Mass/Vol] 2.5 g/dL 2.2-4.2 [facility] Serum glucose measurement (m ass/volume)Ordered By: Aria Sanchez on 04-19-2025 Glucose [Mass/Vol] 99 mg/dL 70-99 [facility] Serum or plasma alanine kirby otransferase (ALT) measurementOrdered By: Aria Sanchez on 04-19-2025 ALT [Catalytic activity/Vol] 18 U/L <35 [facility] Serum or plasma albumin moncho urement (mass/volume)Ordered By: Aria Sanchez on 04-19-2025 Albumin [Mass/Vol] 4.0 g/dL 3.4-4.8 [facility] Serum or plasma albumin/glob ulin mass ratioOrdered By: Aria Sanchez on 04-19-2025 Albumin/Globulin [Mass ratio] 1.6 {ratio} 0.9-2.4 [facility] Serum or plasma alkaline sandie sphatase measurementOrdered By: Aria Sanchez on 04-19-2025 ALP [Catalytic activity/Vol] 86 U/L 35-104 [facility] Serum or plasma calcium moncho urement (mass/volume)Ordered By: Aria Sanchez on 04-19-2025 Calcium [Mass/Vol] 9.1 mg/dL 7.6-11.0 [facility] Serum or plasma urea nitroge n measurement (mass/volume)Ordered By: Ariaaba Sanchez on 04-19-2025 Urea nitrogen [Mass/Vol] 17 mg/dL 4-19 [facility] Sodium levelOrdered By: Ariaaba Sanchez on 04-19-2025 Sodium [Moles/Vol] 142 mmol/L 133-145 [facility] T4 Free Directon 04-19-2025 T4 FREE DIRECT 1.50 ng/dL High 0.76-1.46 [facility] Comment on above: Order Comment: Order Date: 04/19/25Order Info: 0786-1 - CMPOrder Info: 3051-0 - Y6GEdklw Info: 3016-3 - TSHOrder Info: 3027 - T4F Performed By: #### L 501.98526, L501.9520, L506.0400, L500.4050, L100.0100 ####[facility] [address] [facility]. [place], [place], [address] T4 freeOrdered By: Aria carr on 04-19-2025 Free T4 [Mass/Vol] 1.50 ng/dL High 0.76-1.46 [facility] TSH DL <= 0.005 mIU/L QnOrde red By: Aria Sanchez on 04-19-2025 TSH Qn 1.450 uIU/mL 0.300-4.200 [facility] Thyroid Stim Hormone (TSH)on 04-19-2025 TSH 1.450 uIU/mL Normal 0.300-4.200 [facility] Comment on above: Order Comment: Order Date: 04/19/25Order Info: 0786-1 - CMPOrder Info: 3051-0 - N3KPkhzw Info: 63 - TSHOrder Info: 7 - T4F Performed By: #### L 501.71777, L501.9520, L506.0400, L500.4050, L100.0100 ####[facility] [address] [place], [address] Total proteinOrdered By: Maria T Sanchez on 04-19-2025 Protein [Mass/Vol] 6.5 g/dL 5.9-8.4 [facility] White blood cell (WBC) count Ordered By: Aria Sanchez on 04-19-2025 WBC (Bld) [#/Vol] 5.8 10*3/uL 4.4-11.0 [facility] Plastic Surgery Visit Report on 04-18-2025 Plastic Surgery Visit Report Normal [facility] Absolute lymphocyte countOrd ered By: Rufinadionne Godinez on 04-11-2025 Lymphocytes Auto (Unsp spec) [#/Vol] 1.33 10*3/uL 0.83-4.51 [facility] Absolute neutrophil countOrd ered By: Rufinadionne Godinez on 04-11-2025 Neutrophils (Bld) [#/Vol] 5.4 10*3/uL 2.0-7.7 [facility] Automated lymphocyte count a s percentage of total leukocytesOrdered By: Rufina Godinez on 04-11-2025 Lymphocytes/100 WBC Auto (Unsp spec) 18.0 % Low 19-41 [facility] Basophil percentageOrdered B y: Rufina Godinez on 04-11-2025 Basophils/100 WBC (Bld) 0.3 % 0-1 [facility] CBC W/Diff, Automatedon 03-26 Absolute Lymph 1.33 X10 3/uL Normal 0.83-4.51 [facility] Comment on above: Performed By: #### L 100.0100 ####[facility] [address] [place], [address] Absolute Neut 5.4 X10 3/uL Normal 2.0-7.7 [facility] Comment on above: Performed By: #### L 100.0100 ####[facility] [address] [place], [address] Basophils/100 WBC (Bld) 0.3 % Normal 0-1 [facility] Comment on above: Performed By: #### L 100.0100 ####[facility] [address] [place], [address] Eosinophils/100 WBC (Bld) 0.8 % Normal 0-5 [facility] Comment on above: Performed By: #### L 100.0100 ####[facility] [address] [place], [address] Erythrocyte distribution width (RBC) [Ratio] 13.0 % Normal 11.6-14.6 [facility] Comment on above: Performed By: #### L 100.0100 ####[facility] [address] [place], [address] Hematocrit (Bld) [Volume fraction] 37.8 % Normal 37-47 [facility] Comment on above: Performed By: #### L 100.0100 ####[facility] [address] [place], [address] Hemoglobin (Bld) [Mass/Vol] 12.4 g/dL Normal 12.0-15.0 [facility] Comment on above: Performed By: #### L 100.0100 ####[facility] [address] [place], [address] IG% 0.300 Normal 0.0-0.9 [facility] Comment on above: Result Comment: IG% - Immature Granulocytes (promyelocytes, myelocytes andmetamyelocytes) > 1% indicates that a LEFT SHIFT is Present. Performed By: #### L 100.0100 ####[facility] [address] [place], [address] Lymphocytes/100 WBC (Bld) 18.0 % Low 19-41 [facility] Comment on above: Performed By: #### L 100.0100 ####[facility] [address] [place], [address] MCH (RBC) [Entitic mass] 32.6 pg High 27.0-32.0 [facility] Comment on above: Performed By: #### L 100.0100 ####[facility] [address] [place], [address] MCHC (RBC) [Mass/Vol] 32.8 g/dL Normal 32-36 [facility] Comment on above: Performed By: #### L 100.0100 ####[facility] [address] [place], [address] MCV (RBC) [Entitic vol] 99.5 fL High 81-99 [facility] Comment on above: Performed By: #### L 100.0100 ####[facility] [address] [place], [address] Monocytes/100 WBC (Bld) 7.3 % Normal 0-10 [facility] Comment on above: Performed By: #### L 100.0100 ####[facility] [address] [place], [address] Neutrophils/100 WBC (Bld) 73.3 % High 47-70 [facility] Comment on above: Performed By: #### L 100.0100 ####[facility] [address] [place], [address] Nucleated RBC (Bld) [#/Vol] 0 10*3/uL Normal 0-5 [facility] Comment on above: Performed By: #### L 100.0100 ####[facility] [address] [place], [address] Platelet mean volume (Bld) [Entitic vol] 9.5 fL Normal 6.2-12.0 [facility] Comment on above: Performed By: #### L 100.0100 ####[facility] [address] [place], [address] Platelets (Bld) [#/Vol] 199 10*3/uL Normal 150-450 [facility] Comment on above: Performed By: #### L 100.0100 ####[facility] [address] [place], [address] RBC (Bld) [#/Vol] 3.80 10*6/uL Low 4.2-5.4 [facility] Comment on above: Performed By: #### L 100.0100 ####[facility] [address] [place], [address] RDW SD 46.8 fl High 35.1-43.9 [facility] Comment on above: Performed By: #### L 100.0100 ####[facility] [address] [place], [address] WBC (Bld) [#/Vol] 7.4 10*3/uL Normal 4.4-11.0 [facility] Comment on above: Performed By: #### L 100.0100 ####[facility] [address] [place], [place], [id number](769) Discharge Instructionon 03-26 Discharge Instruction Normal [facility] Eosinophil percentageOrdered By: Rufina Godinez on 04-11-2025 Eosinophils/100 WBC (Bld) 0.8 % 0-5 [facility] Erythrocyte distribution wid th ratioOrdered By: Rufinadionne Godinez on 04-11-2025 Erythrocyte distribution width (RBC) [Ratio] 13.0 % 11.6-14.6 [facility] Erythrocyte distribution wid th standard deviationOrdered By: Rufina Godinez on 04-11-2025 Erythrocyte distribution width (RBC) [Ratio] 46.8 fl High 35.1-43.9 [facility] Hematocrit Auto (Bld) [Volum e fraction]Ordered By: Rufina Godinez on 04-11-2025 Hematocrit (Bld) [Volume fraction] 37.8 % 37-47 [facility] Hemoglobin measurementOrdere d By: Rufina Godinez on 04-11-2025 Hemoglobin (Bld) [Mass/Vol] 12.4 g/dL 12.0-15.0 [facility] Immature granulocytes/100 WB C Auto (Bld)Ordered By: Rufina Godinez on 04-11-2025 Immature granulocytes/100 WBC (Bld) 0.300 % 0.0-0.9 [facility] Comment on above: IG% - Immature Granu locytes (promyelocytes, myelocytes and metamyelocytes) > 1% indicates that a LEFT SHIFT is Present. MCV (mean corpuscular volume ) determinationOrdered By: Rufina Godinez on 04-11-2025 MCV (RBC) [Entitic vol] 99.5 fL High 81-99 [facility] Mean corpuscular hemoglobin (MCH) determinationOrdered By: Rufinadionne Godinez on 04-11-2025 MCH (RBC) [Entitic mass] 32.6 pg High 27.0-32.0 [facility] Mean corpuscular hemoglobin concentration (MCHC) determinationOrdered By: Rufinadionne Godinez on 04-11-2025 MCHC (RBC) [Mass/Vol] 32.8 g/dL 32-36 [facility] Mean platelet volume determi nationOrdered By: Rufina Godinez on 04-11-2025 Platelet mean volume (Bld) [Entitic vol] 9.5 fL 6.2-12.0 [facility] Monocyte percentageOrdered B y: Rufina Godinez on 04-11-2025 Monocytes/100 WBC (Bld) 7.3 % 0-10 [facility] Neutrophil percentageOrdered By: Rufinadionne Godinez on 04-11-2025 Neutrophils/100 WBC (Bld) 73.3 % High 47-70 [facility] Nucleated red blood cell per centageOrdered By: Rufina Godinez on 04-11-2025 Nucleated RBC/100 WBC (Bld) [Ratio] 0 % 0-5 [facility] Platelet countOrdered By: Gurinder Godinez on 04-11-2025 Platelets (Bld) [#/Vol] 199 10*3/uL 150-450 [facility] RBC Auto (Bld) [#/Vol]Ordere d By: Rufina Godinez on 04-11-2025 RBC (Bld) [#/Vol] 3.80 10*6/uL Low 4.2-5.4 [facility] White blood cell (WBC) count Ordered By: Rufina Godinez on 04-11-2025 WBC (Bld) [#/Vol] 7.4 10*3/uL 4.4-11.0 [facility] Frozen Section (charge)on Frozen Section (charge) Normal [facility] Comment on above: Performed By: #### P FSC ####[facility] [address] [facility] [place], [address] H AND P Exam - Surgicalon H&P Exam - Surgical Normal [facility] Lymph Node Injection Onlyon 04-10-2025 Lymph Node Injection Only Normal [facility] MR/POSTOP.ANEon 04-10-2025 MR/POSTOP.ANE Normal [facility] MR/RHVRIZUR2bp 04-10-2025 MR/POSTOPAN2 Normal [facility] Operative Reporton Operative Report Normal [facility] Operative Report Normal [facility] Electrocardiogram reportOrde red By: Kameron Gamez on 04-03-2025 [address] [facility] [address] [place] [address] 12 Lead EKG 04/02/25920 MR#: [id number] Acct: [id number] Name: BERRY ABAD JOVANA Rep #:[id number] : 1945 79 From: Kmaeron Gamez MD Attending Dr: Dr. Rufina Godinez MD Status: PRE [facility] Ordering Dr: Rufina Godinez MD Date: 04/02/25 Location: [facility] Sex: F C Admitted: Test Reason : [...] ECG Confirmed by KAMERON GAMEZ MD ([id number]), multimedia editor MEMO ROSE ([id number]) on 04/03/2025 7:12:04 AM Referred By: Rufina Godinez Confirmed By: KAMERON GAMEZ MD 04/03/25 0712 Date _ Kameron Gamez MD CC: Dr. Aria Sanchez MD; Dr. Rufina Godinez MD ~ Signed [facility] Work Phone: 12 Lead EKGon 04-02-2025 12 Lead EKG Normal [facility] MR/PAT.ANEon 04-02-2025 MR/PAT.ANE Normal [facility] Plastic Surgery Visit Report on 03-28-2025 Plastic Surgery Visit Report Normal [facility] Surgery Visit Reporton 03-22 Surgery Visit Report Normal [facility] SURG PATH REQUESTon 03-18-20 Case Report [facility] Comment on above: Result Comment: Surg ical Pathology Report Case: [id number] Authorizing Provider: Bertha Bo MD Collected: 03/18/2025 03:02 PM Ordering Location[facility] Received: 03/18/2025 03:03 PM [facility] Pathologist: Apolinar Jack MD, PhD Specimen: SURG PATH, Outside Unstained Slides; HER2, FISH testing; Breast, Left, 1 O'clocks, 6 CMFN, Core Biopsy Performed By: #### S URGP #### [facility] (DEFAULT) [address] [place], [place] [address] Gross Description [facility] Comment on above: Result Comment: The following material(s) are received from [facility], [address] [place] [address], with an identifying surgical pathology report: 1 H&E slide(s) and 2 unstained slides marked A1, labeled [id number]. Material with be returned upon completion of review. Grosser for this case was: Guadalupe Nick Performed By: #### S URGP #### [facility] (DEFAULT) [address] [place] [address] Microscopic Description Tissue was asses sed by a molecular pathologist to select areas for analysis and to correlate immunostaining with histology. No morphologic assessment was requested. Normal [facility] Comment on above: Performed By: #### S URGP #### [facility] (DEFAULT) [address] [address] Pathologic Diagnosis Normal [facility] Comment on above: Result Comment: Outs shaila Slides: [id number] (03/06/2025) A. Breast, Left, 1 o'clock, 6CMFN, Core Biopsy: HER2 FISH: Negative (see FISH report for details) at 0859 EDT Performed By: #### S URGP #### [facility] (DEFAULT) [address] [address] Professional Interpretation Performed at: Normal [facility] Comment on above: Result Comment: [facility] For Immediate Release to [facility] Yes [address] [facility] [address] [place], [place] [address] Performed By: #### S URGP #### [facility] (DEFAULT) [address] [place] [address] Microalb:Creat Ratio,Random URon 03-15-2025 MALB:CREAT 32.0 mg/g CRE Normal [facility] Comment on above: Result Comment: AMENDED REPORT 03/15/25 0950 MALB:CREAT previously reported as: 320.0 mg/g CRE Performed By: #### L 502.0250 ####[facility] [address] [place], [place], [id number] Plastic Surgery Visit Report on 03-13-2025 Plastic Surgery Visit Report Normal [facility] Plastic Surgery Visit Report on 03-07-2025 Plastic Surgery Visit Report Normal [facility] Surgery Visit Reporton 03-06 Surgery Visit Report Normal [facility] Breast Complete Unilateralon 02-20-2025 Breast Complete Unilateral Normal [facility] Breast imaging reportOrdered By: Allison Wilson on 02-15-2025 Study report [facility] Imaging Services [address] [place], [place] [address] SCRN MAMM (CAD)W/WALESKA BILAT MR#: [id number] Acct: [id number] Name: BERRY ABAD Rep #: [id number] : 1945 F 79 From: Kirsten Wilson MD PCP: Dr. Aria Sanchez MD Status: REG CLI Study:SCRN MAMM (CAD)W/WALESKA BILAT Date of Exa m: 02/15/25 Exam# [id number] Ordering Dr: Jaylon Sanchez MD EXAM: SCRN [...] be mailed to the patient. Reading Location: [facility] CC: Dr. Aria Sanchez MD ~ 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Signed [facility] SCRN MAMM (CAD)W/WALESKA BILATo n 02-15-2025 SCRN MAMM (CAD)W/WALESKA BILAT Normal [facility] Urine Cultureon 02-07-2025 URC Normal [facility] Comment on above: Performed By: #### L 400.0001, M100.2200, L500.4100, L500.4050, L501.9520 ####[facility] [address] [place], [place], [id number] Anion gap in Serum or Plasma Ordered By: Aria Sanchez on 02-05-2025 Anion gap [Moles/Vol] 11 mmol/L 5-15 [facility] BUN/creatinine ratioOrdered By: Aria Sanchez on 02-05-2025 Urea nitrogen/Creatinine [Mass ratio] 15.8 mg/mg 10-20 [facility] Bilirubin Test strip Ql (U)O rdered By: Aria Sanchez on 02-05-2025 Bilirubin Ql (U) Negative Negative [facility] Bilirubin, totalOrdered By: Aria Sanchez on 02-05-2025 Bilirubin [Mass/Vol] 0.72 mg/dL 0.00-1.30 [facility] Calculated very low density lipoprotein (VLDL) cholesterol measurementOrdered By: Aria Sanchez on 02-05-2025 Calculated very low density lipoprotein (VLDL) cholesterol measurement 24 mg/dL 5-40 [facility] Carbon dioxide, total [Moles /volume] in Central venous bloodOrdered By: Aria Sanchez on 02-05-2025 CO2 [Moles/Vol] 23.9 mmol/L 21.0-32.0 [facility] Chloride assayOrdered By: Jaylon Sanchez on 02-05-2025 Chloride [Moles/Vol] 106 mmol/L 98-108 [facility] Comprehensive Metabolic Prof ilon 02-05-2025 Albumin [Mass/Vol] 4.2 g/dL Normal 3.4-4.8 [facility] Comment on above: Order Comment: Order Date: 02/04/25Order Info: [id number] - CMPOrder Info: [id number] - LIPIDOrder Info: [id number] - TSH Performed By: #### L 400.0001, M100.2200, L500.4100, L500.4050, L501.9520 ####[facility] [address] [place], [address] Albumin/Globulin [Mass ratio] 1.8 {ratio} Normal 0.9-2.4 [facility] Comment on above: Order Comment: Order Date: 02/04/25Order Info: [id number] - CMPOrder Info: [id number] - LIPIDOrder Info: [id number] - TSH Performed By: #### L 400.0001, M100.2200, L500.4100, L500.4050, L501.9520 ####[facility] [address] [place], [address] ALK PHOS 80 U/L Normal 35-104 [facility] Comment on above: Order Comment: Order Date: 02/04/25Order Info: [id number] - CMPOrder Info: [id number] - LIPIDOrder Info: [id number] - TSH Performed By: #### L 400.0001, M100.2200, L500.4100, L500.4050, L501.9520 ####[facility] [address] [place], [address] ALT [Catalytic activity/Vol] 23 U/L Normal <=34 [facility] Comment on above: Order Comment: Order Date: 02/04/25Order Info: [id number] - CMPOrder Info: [id number] - LIPIDOrder Info: [id number] - TSH Performed By: #### L 400.0001, M100.2200, L500.4100, L500.4050, L501.9520 ####[facility] [address] [place], [address] AST [Catalytic activity/Vol] 27 U/L Normal <=31 [facility] Comment on above: Order Comment: Order Date: 02/04/25Order Info: [id number]- - CMPOrder Info: [id number] - LIPIDOrder Info: [id number] - TSH Performed By: #### L 400.0001, M100.2200, L500.4100, L500.4050, L501.9520 ####[facility] [address] [place], [address] Bilirubin [Mass/Vol] 0.72 mg/dL Normal 0.00-1.30 [facility] Comment on above: Order Comment: Order Date: 02/04/25Order Info: [id number] - CMPOrder Info: [id number] - LIPIDOrder Info: [id number] - TSH Performed By: #### L 400.0001, M100.2200, L500.4100, L500.4050, L501.9520 ####[facility] [address] [place], [address] BUN/CRE 15.8 RATIO Normal 10-20 [facility] Comment on above: Order Comment: Order Date: 02/04/25Order Info: [id number] - CMPOrder Info: [id number] - LIPIDOrder Info: [id number] - TSH Performed By: #### L 400.0001, M100.2200, L500.4100, L500.4050, L501.9520 ####[facility] [address] [place], [address] Calcium [Mass/Vol] 9.2 mg/dL Normal 7.6-11.0 [facility] Comment on above: Order Comment: Order Date: 02/04/25Order Info: 07-1 - CMPOrder Info: [id number] - LIPIDOrder Info: 3 - TSH Performed By: #### L 400.0001, M100.2200, L500.4100, L500.4050, L501.9520 ####[facility] [address] [place], [address] Chloride [Moles/Vol] 106 mmol/L Normal 98-108 [facility] Comment on above: Order Comment: Order Date: 02/04/25Order Info: [id number] - CMPOrder Info: [id number] - LIPIDOrder Info: [id number] - TSH Performed By: #### L 400.0001, M100.2200, L500.4100, L500.4050, L501.9520 ####[facility] [address] [place], [address] CO2 [Moles/Vol] 23.9 mmol/L Normal 21.0-32.0 [facility] Comment on above: Order Comment: Order Date: 02/04/25Order Info: 07-1 - CMPOrder Info: [id number] - LIPIDOrder Info: [id number] - TSH Performed By: #### L 400.0001, M100.2200, L500.4100, L500.4050, L501.9520 ####[facility] [address] [place], [address] Creatinine [Mass/Vol] 1.06 mg/dL Normal 0.70-1.20 [facility] Comment on above: Order Comment: Order Date: 02/04/25Order Info: 07- - CMPOrder Info: [id number] - LIPIDOrder Info: 3 - TSH Performed By: #### L 400.0001, M100.2200, L500.4100, L500.4050, L501.9520 ####[facility] [address] [place], [address] GAP 11 Normal 5-15 [facility] Comment on above: Order Comment: Order Date: 02/04/25Order Info: 07 - CMPOrder Info: - LIPIDOrder Info: [id number] - TSH Performed By: #### L 400.0001, M100.2200, L500.4100, L500.4050, L501.9520 ####[facility] [address] [place], [address] GFR/1.73 sq M.predicted among non-blacks MDRD (S/P/Bld) [Vol rate/Area] 53 mL/min/{1.73_m2} Low >60 [facility] Comment on above: Order Comment: Order Date: 02/04/25Order Info: [id number] - CMPOrder Info: [id number] - LIPIDOrder Info: 63 - TSH Result Comment: mL/m in/1.73m2 CKD-EPI Creatinine Equation (2020) Performed By: #### L 400.0001, M100.2200, L500.4100, L500.4050, L501.9520 ####[facility] [address] [place], [address] Globulin (S) [Mass/Vol] 2.4 g/dL Normal 2.2-4.2 [facility] Comment on above: Order Comment: Order Date: 02/04/25Order Info: [id number] - CMPOrder Info: [id number] - LIPIDOrder Info: 3 - TSH Performed By: #### L 400.0001, M100.2200, L500.4100, L500.4050, L501.9520 ####[facility] [address] [place], [address] Glucose [Mass/Vol] 96 mg/dL Normal 70-99 [facility] Comment on above: Order Comment: Order Date: 02/04/25Order Info: [id number]- - CMPOrder Info: [id number] - LIPIDOrder Info: 3 - TSH Performed By: #### L 400.0001, M100.2200, L500.4100, L500.4050, L501.9520 ####[facility] [address] [place], [address] Potassium [Moles/Vol] 4.2 mmol/L Normal 3.3-5.1 [facility] Comment on above: Order Comment: Order Date: 02/04/25Order Info: 07- - CMPOrder Info: [id number] - LIPIDOrder Info: 3 - TSH Performed By: #### L 400.0001, M100.2200, L500.4100, L500.4050, L501.9520 ####[facility] [address] [place], [address] Sodium [Moles/Vol] 141 mmol/L Normal 133-145 [facility] Comment on above: Order Comment: Order Date: 02/04/25Order Info: 07-1 - CMPOrder Info: [id number] - LIPIDOrder Info: 3 - TSH Performed By: #### L 400.0001, M100.2200, L500.4100, L500.4050, L501.9520 ####[facility] [address] [place], [address] T PROT 6.6 g/dL Normal 5.9-8.4 [facility] Comment on above: Order Comment: Order Date: 02/04/25Order Info: [id number] - CMPOrder Info: [id number] - LIPIDOrder Info: [id number] - TSH Performed By: #### L 400.0001, M100.2200, L500.4100, L500.4050, L501.9520 ####[facility] [address] [place], [address] Urea nitrogen [Mass/Vol] 17 mg/dL Normal 4-19 [facility] Comment on above: Order Comment: Order Date: 02/04/25Order Info: [id number] - CMPOrder Info: [id number] - LIPIDOrder Info: [id number] - TSH Performed By: #### L 400.0001, M100.2200, L500.4100, L500.4050, L501.9520 ####[facility] [address] [place], [address] Glomerular filtration rate ( GFR) estimation/1.73 sq m using serum, plasma, or whole bOrdered By: Aria Sanchez on 02-05-2025 GFR/1.73 sq M.predicted among non-blacks MDRD (S/P/Bld) [Vol rate/Area] 53 mL/min/{1.73_m2} Low >60 [facility] Comment on above: mL/min/1.73m2 CKD-EP I Creatinine Equation (2020) Ketones Test strip Ql (U)Ord ered By: Aria Sanchez on 02-05-2025 Ketones Ql (U) Negative Negative [facility] LDL calc ser/plasOrdered By: Aria Sanchez on 02-05-2025 Cholesterol in LDL [Mass/Vol] 156 mg/dL [facility] Comment on above: Owjogtpqnf=802-656 m g/dL & Higher Xhvj=496 mg/dL or greater Laboratory - Chemistry and C hemistry - challengeOrdered By: Aria Sanchez on 02-05-2025 AST [Catalytic activity/Vol] 27 U/L <32 [facility] Lipid Profileon 02-05-2025 CHOL:HDL 3.76 Normal [facility] Comment on above: Order Comment: Order Date: 02/04/25Order Info: [id number] - CMPOrder Info: [id number] - LIPIDOrder Info: [id number] - TSH Performed By: #### L 400.0001, M100.2200, L500.4100, L500.4050, L501.9520 ####[facility] [address] [place], [address] Cholesterol [Mass/Vol] 246 mg/dL High <=200 [facility] Comment on above: Order Comment: Order Date: 02/04/25Order Info: [id number] - CMPOrder Info: [id number] - LIPIDOrder Info: 6-3 - TSH Result Comment: Chol esterol level, Desirable <200 mg/dLBorderline high cholesterol 200-239 mg/dLHigh cholesterol >=240 mg/dLRecommendations of the NCEP Adult Treatment Panel for thefollowing risk-cutoff thresholds for the [place] Americanpulation. Performed By: #### L 400.0001, M100.2200, L500.4100, L500.4050, L501.9520 ####[facility] [address] [place], [place], [address] Cholesterol in HDL [Mass/Vol] 65 mg/dL Normal [facility] Comment on above: Order Comment: Order Date: 02/04/25Order Info: [id number] - CMPOrder Info: [id number] - LIPIDOrder Info: [id number] - TSH Result Comment: Sandra onal Cholesterol Education Program (NCEP) guidelines:<40 mg/dL: Low HDL-cholesterol (major risk factor for CHD)>= 60 mg/dL: High HDL-cholesterol (negative risk factor forCHD)HDL-cholesterol is affected by a number of factors, e.g.smoking, exercise, hormones, sex and age. Performed By: #### L 400.0001, M100.2200, L500.4100, L500.4050, L501.9520 ####[facility] [address] [place], [address] Cholesterol in LDL [Mass/Vol] 156 mg/dL Normal [facility] Comment on above: Order Comment: Order Date: 02/04/25Order Info: [id number] - CMPOrder Info: [id number] - LIPIDOrder Info: [id number] - TSH Result Comment: Bord uvjszp=991-964 mg/dL Higher Bqjm=158 mg/dL or greater Performed By: #### L 400.0001, M100.2200, L500.4100, L500.4050, L501.9520 ####[facility] [address] [facility] [place], [address] Cholesterol in VLDL [Mass/Vol] 24 mg/dL Normal 5-40 [facility] Comment on above: Order Comment: Order Date: 02/04/25Order Info: [id number] - CMPOrder Info: [id number] - LIPIDOrder Info: [id number] - TSH Performed By: #### L 400.0001, M100.2200, L500.4100, L500.4050, L501.9520 ####[facility] [address] [facility] [place], [address] Triglyceride [Mass/Vol] 121 mg/dL Normal [facility] Comment on above: Order Comment: Order Date: 02/04/25Order Info: [id number] - CMPOrder Info: [id number] - LIPIDOrder Info: [id number] - TSH Result Comment: The drugs N-Acetylcysteine and Metamizole may falselydepress this assay.Normal range: <150 mg/dLBorderline High: 150-199 mg/dLHigh: 200-499 mg/dLVery High: >500 mg/dL Performed By: #### L 400.0001, M100.2200, L500.4100, L500.4050, L501.9520 ####[facility] [address] [place], [address] Microscopic analysis of urin e for red blood cells (RBC)Ordered By: Aria Sanchez on 02-05-2025 Microscopic analysis of urine for red blood cells (RBC) 0-5 SEEN /hpf 0-5 [facility] Mucus LM Ql (Urine sed)Order ed By: Aria Sanchez on 02-05-2025 Mucus Ql (Urine sed) 0 SEEN /hpf [facility] Nitrite Test strip Ql (U)Ord ered By: Aria Sanchez on 02-05-2025 Nitrite Ql (U) Positive High Negative [facility] Potassium measurement (mass/ volume)Ordered By: Aria Sanchez on 02-05-2025 Potassium (Unsp spec) [Mass/Vol] 4.2 mmol/L 3.3-5.1 [facility] Protein Test strip Ql (U)Ord ered By: Aria Sanchez on 02-05-2025 Protein Ql (U) 30 mg/dl High Negative [facility] Random urine creatinine moncho urement (mass/volume)Ordered By: Aria Sanchez on 02-05-2025 Creatinine Unsp time (U) [Mass/Vol] 70.00 mg/dL 28.00-217.00 [facility] Screening total cholesterol/ high density lipoprotein (HDL) cholesterol ratioOrdered By: Aria Sanchez on 02-05-2025 Cholesterol.total/Choles terol in HDL [Mass ratio] 3.76 {ratio} [facility] Serum creatinine measurement (mass/volume)Ordered By: Aria Sanchez on 02-05-2025 Creatinine [Mass/Vol] 1.06 mg/dL 0.70-1.20 [facility] Serum globulin measurementOr dered By: Aria Sanchez on 02-05-2025 Globulin (S) [Mass/Vol] 2.4 g/dL 2.2-4.2 [facility] Serum glucose measurement (m ass/volume)Ordered By: Aria Sanchez on 02-05-2025 Glucose [Mass/Vol] 96 mg/dL 70-99 [facility] Serum or plasma alanine kirby otransferase (ALT) measurementOrdered By: rAia Sanchez on 02-05-2025 ALT [Catalytic activity/Vol] 23 U/L <35 [facility] Serum or plasma albumin moncho urement (mass/volume)Ordered By: Aria Sanchez on 02-05-2025 Albumin [Mass/Vol] 4.2 g/dL 3.4-4.8 [facility] Serum or plasma albumin/glob ulin mass ratioOrdered By: Aria Sanchez on 02-05-2025 Albumin/Globulin [Mass ratio] 1.8 {ratio} 0.9-2.4 [facility] Serum or plasma alkaline sandie sphatase measurementOrdered By: Aria Sanchez on 02-05-2025 ALP [Catalytic activity/Vol] 80 U/L 35-104 [facility] Serum or plasma calcium moncho urement (mass/volume)Ordered By: Aria Sanchez on 02-05-2025 Calcium [Mass/Vol] 9.2 mg/dL 7.6-11.0 [facility] Serum or plasma cholesterol in HDL measurement (mass/volume)Ordered By: Aria Sanchez on 02-05-2025 Cholesterol in HDL [Mass/Vol] 65 mg/dL >40 [facility] Comment on above: National Cholesterol Education Program (NCEP) guidelines:<40 mg/dL: Low HDL-cholesterol (major risk factor for CHD)>= 60 mg/dL: High HDL-cholesterol (negative risk factor for CHD)HDL-cholesterol is affected by a number of factors, e.g. smoking, exercise, hormones, sex and age. Serum or plasma cholesterol measurement (mass/volume)Ordered By: Aria Sanchez on 02-05-2025 Cholesterol [Mass/Vol] 246 mg/dL High <201 [facility] Comment on above: Cholesterol level, D esirable <200 mg/dLBorderline high cholesterol 200-239 mg/dLHigh cholesterol >=240 mg/dLRecommendations of the NCEP Adult Treatment Panel for the following risk-cutoff thresholds for the [place] population. Serum or plasma urea nitroge n measurement (mass/volume)Ordered By: Aria Sanchez on 02-05-2025 Urea nitrogen [Mass/Vol] 17 mg/dL 4-19 [facility] Sodium levelOrdered By: Aria Sanchez on 02-05-2025 Sodium [Moles/Vol] 141 mmol/L 133-145 [facility] Squamous epithelial cells de tection in urine sediment by light microscopyOrdered By: Aria Sanchez on 02-05-2025 Epithelial cells.squamous LM Ql (Urine sed) 0-5 SEEN /hpf 5-10 [facility] TSH DL <= 0.005 mIU/L QnOrde red By: Aria Sanchez on 02-05-2025 TSH Qn 0.902 uIU/mL 0.300-4.200 [facility] Thyroid Stim Hormone (TSH)on 02-05-2025 TSH 0.902 uIU/mL Normal 0.300-4.200 [facility] Comment on above: Order Comment: Order Date: 02/04/25Order Info: [id number] - CMPOrder Info: [id number] - LIPIDOrder Info: [id number] - TSH Performed By: #### L 400.0001, M100.2200, L500.4100, L500.4050, L501.9520 ####[facility] [address] [place], [place], [id number] Total proteinOrdered By: Maria T Sanchez on 02-05-2025 Protein [Mass/Vol] 6.6 g/dL 5.9-8.4 [facility] Triglycerides measurementOrd ered By: Aria Sanchez on 02-05-2025 Triglyceride [Mass/Vol] 121 mg/dL <199 [facility] Comment on above: The drugs N-Acetylcy steine and Metamizole may falsely depress this assay. Normal range: <150 mg/dLBorderline High: 150-199 mg/dLHigh: 200-499 mg/dLVery High: >500 mg/dL Urinalysis, Completeon 02-05 BACTERIA 3+ /hpf Normal None Seen [facility] Comment on above: Order Comment: Order Date: 02/04/25Order Info: [id number] - UACCOLLECTOR TO SPECIFY Performed By: #### L 400.0001, M100.2200, L500.4100, L500.4050, L501.9520 ####[facility] [address] [place], [place], [id number] EPI,SQUAMOUS 0-5 SEEN Normal 5-10 [facility] Comment on above: Order Comment: Order Date: 02/04/25Order Info: [id number] - UACCOLLECTOR TO SPECIFY Performed By: #### L 400.0001, M100.2200, L500.4100, L500.4050, L501.9520 ####[facility] [address] [place], [address] RBC 0-5 SEEN Normal 0-5 [facility] Comment on above: Order Comment: Order Date: 02/04/25Order Info: [id number] - UACCOLLECTOR TO SPECIFY Performed By: #### L 400.0001, M100.2200, L500.4100, L500.4050, L501.9520 ####[facility] [address] [place], [address] WBC 50-100 SEEN Normal 0-5 [facility] Comment on above: Order Comment: Order Date: 02/04/25Order Info: [id number] - UACCOLLECTOR TO SPECIFY Performed By: #### L 400.0001, M100.2200, L500.4100, L500.4050, L501.9520 ####[facility] [address] [place], [address] Mucus Ql (Urine sed) 0 SEEN Normal [facility] Comment on above: Order Comment: Order Date: 02/04/25Order Info: [id number] - UACCOLLECTOR TO SPECIFY Performed By: #### L 400.0001, M100.2200, L500.4100, L500.4050, L501.9520 ####[facility] [address] [place], [address] Urine albumin measurement wi detection limit of 20 mg/L or less (mass/volume)Ordered By: Aria Sanchez on 02-05-2025 Albumin DL <= 20 mg/L (U) [Mass/Vol] 22.4 mg/L NO RANGE EST. [facility] Urine clarityOrdered By: Maria T Sanchez on 02-05-2025 Clarity (U) Cloudy Clear [facility] Urine color determinationOrd ered By: Aria Sanchez on 02-05-2025 Color (U) Yellow Yellow [facility] Urine cultureOrdered By: Maria T Sanchez on 02-05-2025 Bacteria identified Cx Nom (U) Escherichia coli Abnormal [facility] Urine glucose detectionOrder ed By: Aria Sanchez on 02-05-2025 Glucose Ql (U) Normal mg/dl Normal [facility] Urine leukocyte esterase det ection by dipstickOrdered By: Aria Sanchez on 02-05-2025 Leukocyte esterase Test strip Ql (U) 500 /ul High Negative [facility] Urine pHOrdered By: Aria rodriguez on 02-05-2025 pH (U) 6.5 [pH] 5.0 - 8.0 [facility] Urine sediment bacteria coun t by microscopy (number/high power field)Ordered By: Aria Sanchez on 02-05-2025 Bacteria LM.HPF (Urine sed) [#/Area] 3 /[HPF] None Seen [facility] Urine specific gravity measu rementOrdered By: Aria Sanchez on 02-05-2025 Specific gravity (U) [Rel density] 1.010 1.002-1.030 [facility] Urine urobilinogen measureme ntOrdered By: Aria Sanchez on 02-05-2025 Urobilinogen Ql (U) Normal mg/dl Normal [facility] White blood cell countOrdere d By: Aria Sanchez on 02-05-2025 White blood cell count 50-100 SEEN /hpf 0-5 [facility] CBC W/Diff, Automatedon 11- Absolute Lymph 1.24 X10 3/uL Normal 0.83-4.51 [facility] Comment on above: Performed By: #### L 501.9520, L500.4050, L506.0400, L100.0100 ####[facility] [address] [place], [address] Absolute Neut 3.4 X10 3/uL Normal 2.0-7.7 [facility] Comment on above: Performed By: #### L 501.9520, L500.4050, L506.0400, L100.0100 ####[facility] [address] [place], [address] Basophils/100 WBC (Bld) 0.9 % Normal 0-1 [facility] Comment on above: Performed By: #### L 501.9520, L500.4050, L506.0400, L100.0100 ####[facility] [address] [place], [address] Eosinophils/100 WBC (Bld) 3.3 % Normal 0-5 [facility] Comment on above: Performed By: #### L 501.9520, L500.4050, L506.0400, L100.0100 ####[facility] [address] [place], [address] Erythrocyte distribution width (RBC) [Ratio] 12.8 % Normal 11.6-14.6 [facility] Comment on above: Performed By: #### L 501.9520, L500.4050, L506.0400, L100.0100 ####[facility] [address] [place], [address] Hematocrit (Bld) [Volume fraction] 44.6 % Normal 37-47 [facility] Comment on above: Performed By: #### L 501.9520, L500.4050, L506.0400, L100.0100 ####[facility] [address] [place], [address] Hemoglobin (Bld) [Mass/Vol] 14.0 g/dL Normal 12.0-15.0 [facility] Comment on above: Performed By: #### L 501.9520, L500.4050, L506.0400, L100.0100 ####[facility] [address] [place], [address] IG% 0.600 Normal 0.0-0.9 [facility] Comment on above: Result Comment: IG% - Immature Granulocytes (promyelocytes, myelocytes andmetamyelocytes) > 1% indicates that a LEFT SHIFT is Present. Performed By: #### L 501.9520, L500.4050, L506.0400, L100.0100 ####[facility] [address] [place], [address] Lymphocytes/100 WBC (Bld) 22.9 % Normal 19-41 [facility] Comment on above: Performed By: #### L 501.9520, L500.4050, L506.0400, L100.0100 ####[facility] [address] [place], [address] MCH (RBC) [Entitic mass] 31.3 pg Normal 27.0-32.0 [facility] Comment on above: Performed By: #### L 501.9520, L500.4050, L506.0400, L100.0100 ####[facility] [address] [place], [address] MCHC (RBC) [Mass/Vol] 31.4 g/dL Low 32-36 [facility] Comment on above: Performed By: #### L 501.9520, L500.4050, L506.0400, L100.0100 ####[facility] [address] [place], [address] MCV (RBC) [Entitic vol] 99.8 fL High 81-99 [facility] Comment on above: Performed By: #### L 501.9520, L500.4050, L506.0400, L100.0100 ####[facility] [address] [place], [address] Monocytes/100 WBC (Bld) 10.4 % High 0-10 [facility] Comment on above: Performed By: #### L 501.9520, L500.4050, L506.0400, L100.0100 ####[facility] [address] [place], [address] Neutrophils/100 WBC (Bld) 61.9 % Normal 47-70 [facility] Comment on above: Performed By: #### L 501.9520, L500.4050, L506.0400, L100.0100 ####[facility] [address] [place], [address] Nucleated RBC (Bld) [#/Vol] 0 10*3/uL Normal 0-5 [facility] Comment on above: Performed By: #### L 501.9520, L500.4050, L506.0400, L100.0100 ####[facility] [address] [place], [address] Platelet mean volume (Bld) [Entitic vol] 9.8 fL Normal 6.2-12.0 [facility] Comment on above: Performed By: #### L 501.9520, L500.4050, L506.0400, L100.0100 ####[facility] [address] [place], [address] Platelets (Bld) [#/Vol] 243 10*3/uL Normal 150-450 [facility] Comment on above: Performed By: #### L 501.9520, L500.4050, L506.0400, L100.0100 ####[facility] [address] [place], [address] RBC (Bld) [#/Vol] 4.47 10*6/uL Normal 4.2-5.4 [facility] Comment on above: Performed By: #### L 501.9520, L500.4050, L506.0400, L100.0100 ####[facility] [address] [place], [address] RDW SD 47.2 fl High 35.1-43.9 [facility] Comment on above: Performed By: #### L 501.9520, L500.4050, L506.0400, L100.0100 ####[facility] [address] [place], [address] WBC (Bld) [#/Vol] 5.4 10*3/uL Normal 4.4-11.0 [facility] Comment on above: Performed By: #### L 501.9520, L500.4050, L506.0400, L100.0100 ####[facility] [address] [place], [address] Comprehensive [facility] 08-06-2024 Albumin [Mass/Vol] 3.7 g/dL Normal 3.2-5.0 [facility] Comment on above: Performed By: #### L 501.9520, L500.4050, L506.0400, L100.0100 ####[facility] [address] [place], [address] Albumin/Globulin [Mass ratio] 1.1 {ratio} Normal 0.9-2.4 [facility] Comment on above: Performed By: #### L 501.9520, L500.4050, L506.0400, L100.0100 ####[facility] [address] [place], [address] ALK P 91 U/L Normal 45-117 [facility] Comment on above: Performed By: #### L 501.9520, L500.4050, L506.0400, L100.0100 ####[facility] [address] [place], [address] ALT [Catalytic activity/Vol] 41 U/L Normal 13-56 [facility] Comment on above: Performed By: #### L 501.9520, L500.4050, L506.0400, L100.0100 ####[facility] [address] [place], [address] AST [Catalytic activity/Vol] 31 U/L Normal 15-37 [facility] Comment on above: Performed By: #### L 501.9520, L500.4050, L506.0400, L100.0100 ####[facility] [address] [place], [address] Bilirubin [Mass/Vol] 1.00 mg/dL Normal 0.20-1.00 [facility] Comment on above: Result Comment: For patients on eltrombopag therapy, use of Dimension [place] TBIL is not recommended. Performed By: #### L 501.9520, L500.4050, L506.0400, L100.0100 ####[facility] [address] [place], [address] BUN/CRE 15.2 RATIO Normal 10-20 [facility] Comment on above: Performed By: #### L 501.9520, L500.4050, L506.0400, L100.0100 ####[facility] [address] [place], [address] CA,Total 9.2 mg/dL Normal 8.5-10.1 [facility] Comment on above: Performed By: #### L 501.9520, L500.4050, L506.0400, L100.0100 ####[facility] [address] [place], [address] Chloride [Moles/Vol] 105 mmol/L Normal 98-107 [facility] Comment on above: Performed By: #### L 501.9520, L500.4050, L506.0400, L100.0100 ####[facility] [address] [place], [address] CO2 [Moles/Vol] 26.0 mmol/L Normal 21.0-32.0 [facility] Comment on above: Performed By: #### L 501.9520, L500.4050, L506.0400, L100.0100 ####[facility] [address] [place], [address] Creatinine [Mass/Vol] 1.05 mg/dL High 0.55-1.02 [facility] Comment on above: Result Comment: The validity of the calculated GFR GFRAA in patients over70 years has not been determined. Clinical correlation isessential. Performed By: #### L 501.9520, L500.4050, L506.0400, L100.0100 ####[facility] [address] [place], [address] EST GFR - AA 65 mL/min Normal >60 [facility] Comment on above: Result Comment: Afri can [place] GFR Calc Performed By: #### L 501.9520, L500.4050, L506.0400, L100.0100 ####[facility] [address] [place], [address] GAP 8 Normal 5-15 [facility] Comment on above: Performed By: #### L 501.9520, L500.4050, L506.0400, L100.0100 ####[facility] [address] [place], [address] GFR/1.73 sq M.predicted among non-blacks MDRD (S/P/Bld) [Vol rate/Area] 54 mL/min/{1.73_m2} Low >60 [facility] Comment on above: Result Comment: Non- GFR Calc Performed By: #### L 501.9520, L500.4050, L506.0400, L100.0100 ####[facility] [address] [place], [address] Globulin (S) [Mass/Vol] 3.3 g/dL Normal 2.2-4.2 [facility] Comment on above: Performed By: #### L 501.9520, L500.4050, L506.0400, L100.0100 ####[facility] [address] [place], [address] Glucose [Mass/Vol] 99 mg/dL Normal 74-106 [facility] Comment on above: Performed By: #### L 501.9520, L500.4050, L506.0400, L100.0100 ####[facility] [address] [place], [address] Potassium [Moles/Vol] 4.1 mmol/L Normal 3.5-5.1 [facility] Comment on above: Performed By: #### L 501.9520, L500.4050, L506.0400, L100.0100 ####[facility] [address] [place], [address] Sodium [Moles/Vol] 139 mmol/L Normal 136-145 [facility] Comment on above: Performed By: #### L 501.9520, L500.4050, L506.0400, L100.0100 ####[facility] [address] [place], [address] T PROT 7.0 g/dL Normal 6.4-8.2 [facility] Comment on above: Performed By: #### L 501.9520, L500.4050, L506.0400, L100.0100 ####[facility] [address] [place], [address] Urea nitrogen [Mass/Vol] 16 mg/dL Normal 7-18 [facility] Comment on above: Performed By: #### L 501.9520, L500.4050, L506.0400, L100.0100 ####[facility] [address] [place], [address] T4 Free Directon 08-06-2024 T4 FREE DIRECT 0.96 ng/dL Normal 0.76-1.46 [facility] Comment on above: Performed By: #### L 501.9520, L500.4050, L506.0400, L100.0100 ####[facility] [address] [place], [address] Thyroid Stim Hormone (TSH)on 08-06-2024 TSH 1.840 uIU/mL Normal 0.358-3.740 [facility] Comment on above: Performed By: #### L 501.9520, L500.4050, L506.0400, L100.0100 ####[facility] [address] [place], [address] CT BRAIN WO IVCONon 05-07-[address] BRAIN WO IVCON * * *Final Report* * * DATE OF EXAM: May 07 2024 11:22AM [facility] 0504 - CT BRAIN WO IVCON [...] mass effect. No new acute intracranial hemorrhage. 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[facility] Transcribe Date/Time: May 07 2024 11:46A Dictated by : KIRSTEN LUGO MD This examination was interpreted and the report reviewed and electronically signed by: KIRSTEN LUOG MD on May 07 2024 11:50AM EST [id number] N Normal [facility] CT Head WO contraston 2023 IMPRESSION: Almost complete interval resolution of the right convexity subdural hematoma with minimal residual as described. No significant mass effect. No new acute intracranial hemorrhage. 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[facility] Transcribe Date/Time: May 07 2024 11:46A Dictated by : KIRSTEN LUGO MD This examination was interpreted and the report reviewed and electronically signed by: KIRSTEN LUGO MD on May 07 2024 11:50AM [facility] DIVISION OF RADIOLOGY * * *Final Report* * * DATE OF EXAM: May 07 2024 11:22AM [facility] 0504 - CT BRAIN WO IVCON [...] noted and unchanged. DIVISION OF RADIOLOGY Provider, [facility] - 05/07/2024 * * *Final Report* * * DATE OF EXAM: May 07 2024 11:22AM [facility] 0504 - CT BRAIN WO IVCON [...] mass effect. No new acute intracranial hemorrhage. 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[facility] Transcribe Date/Time: May 07 2024 11:46A Dictated by : KIRSTEN LUGO MD This examination was interpreted and the report reviewed and electronically signed by: KIRSTEN LUGO MD on May 07 2024 11:50AM EST [facility] Study observation (narrative) [facility] CT Head WO contrastOrdered B y: [facility] Provider on 05-07-2024 [facility] CNOVon 04-12-2024 CNOV Office Visit (NEAGCLM) BERRY ABAD ([id number]) 1945 F Date Time Provider Department 04/12/24 11:30 AM RADHA MOSLEY NERAPHAEL During your visit today, we recorded the following information about you: Pulse Respiration Blood pressure Weight 67/minute 16/minute 130/81 66.5 kg Height 1.651 m Radha Mosley APRN.CNP 04/12/2024 12:34 PM Signed NEUROSURGERY FOLLOW UP OFFICE NOTE Radha Mosley APRN.CNP Date of visit: April 12, 2024 Patient Name: Ms.Patricia Abad Date of : 1945 Current Age: [age] year old Sex: female MRN/E# [id number] Last Office Visit: Hospital follow-up CHIEF COMPLAINT: Patient presents with: Established Patient HPI: The patient presents for a hospital follow up with imaging (CT B) for evaluation. This is a 78-year-old female with a PMHx of HTN and breast CA who was seen for consult at [facility] on 03/09/[address] Bagley. She [...] Negative for (more content not included)... Normal [facility] CT BRAIN WO IVCONon 04-09-20 CT BRAIN WO IVCON * * *Final Report* * * DATE OF EXAM: Apr 09 2024 10:19AM [facility] 0504 - CT BRAIN WO IVCON [...] on the underlying parenchyma as outlined above. 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ANGEL Transcribe Date/Time: Apr 09 2024 11:57A Dictated by : ANIBAL ROGEL MD This examination was interpreted and the report reviewed and electronically signed by: ANIBAL ROGEL MD on Apr 09 2024 12:04PM EST [id number] N Normal [facility] CT Head WO contraston 2023 IMPRESSION: Interval evolution and reduction in size and extent of the acute subdural hemorrhage overlying the right cerebral convexity since 03/11/2024 with small residual chronic component overlying the right frontal convexity causing only mild mass effect on the underlying parenchyma as outlined above. 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ANGEL Transcribe Date/Time: Apr 09 2024 11:57A Dictated by : ANIBAL ROGEL MD This examination was interpreted and the report reviewed and electronically signed by: ANIBAL ROGEL MD on Apr 09 2024 12:04PM EST DIVISION OF RADIOLOGY * * *Final Report* * * DATE OF EXAM: Apr 09 2024 10:19AM [facility] 0504 - CT BRAIN WO IVCON [...] skull base fracture. DIVISION OF RADIOLOGY Provider, [facility] - 04/09/2024 * * *Final Report* * * DATE OF EXAM: Apr 09 2024 10:19AM [facility] 0504 - CT BRAIN WO IVCON [...] on the underlying parenchyma as outlined above. 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[facility] Transcribe Date/Time: Apr 09 2024 11:57A Dictated by : ANIBAL ROGEL MD This examination was interpreted and the report reviewed and electronically signed by: ANIBAL ROGEL MD on Apr 09 2024 12:04PM EST [facility] Study observation (narrative) [facility] ocasio [facility] CT Head WO contrastOrdered B y: [facility]cf Provider on 04-09-2024 [facility] Basic metabolic 2000 panelon 03-12-2024 Anion gap [Moles/Vol] 10 mmol/L Normal 8-15 [facility] Comment on above: Order Comment: Speci men Type: BLOOD SPECIMEN Ordering Facility: [facility] Address: [address] [place] [address] Performed By: #### 2 4321-2 #### [facility] CLIA [id number] [address] [place] [address] [place] Calcium [Mass/Vol] 8.7 mg/dL Normal 8.5-10.2 [facility] Comment on above: Order Comment: Speci men Type: BLOOD SPECIMEN Ordering Facility: [facility] Address: [address] [place] [address] Performed By: #### 2 4321-2 #### [facility] CLIA [id number] [address] [place] [address] [place] Chloride [Moles/Vol] 105 mmol/L Normal 98-107 [facility] Comment on above: Order Comment: Speci men Type: BLOOD SPECIMEN Ordering Facility: [facility] Address: [address] [place] [address] Performed By: #### 2 4321-2 #### [facility] CLIA [id number] [address] [place] [address] [place] CO2 [Moles/Vol] 25 mmol/L Normal 22-30 [facility] Comment on above: Order Comment: Speci men Type: BLOOD SPECIMEN Ordering Facility: [facility] Address: [address] [place] [address] Performed By: #### 2 4321-2 #### [facility] CLIA [id number] [address] [place] [address] [place] Creatinine [Mass/Vol] 0.85 mg/dL Normal 0.58-0.96 [facility] Comment on above: Order Comment: Speci men Type: BLOOD SPECIMEN Ordering Facility: [facility] Address: [address] [place] [address] Performed By: #### 2 4321-2 #### [facility] CLIA [id number] [address] [place] [address] [place] Creatinine and Glomerular filtration rate.predicted panel (S/P/Bld) 70 mL/min/1.73m??? Normal >=60 [facility] Comment on above: Order Comment: Bob pitt Type: BLOOD SPECIMEN Ordering Facility: [facility] Address: [address] [place] [address] Result Comment: Nelia mated Glomerular Filtration Rate [...] GFR. Performed By: #### 2 4321-2 #### [facility] CLIA [id number] [address] [place] [address] [place] Glucose [Mass/Vol] 136 mg/dL High 74-99 [facility] Comment on above: Order Comment: Bob pitt Type: BLOOD SPECIMEN Ordering Facility: [facility] Address: [address] [place] [address] Result Comment: The [place] Diabetes Association (ADA) provides guidance for cutoff [...] Standards of Medical Care in Diabetes 2016, [place] Diabetes Association. Diabetes Care. 2016.39(Suppl 1). Performed By: #### 2 4321-2 #### [facility] CLIA [id number] [address] [place] [address] [place] Potassium [Moles/Vol] 4.1 mmol/L Normal 3.7-5.1 [facility] Comment on above: Order Comment: Speci men Type: BLOOD SPECIMEN Ordering Facility: [facility] Address: [address] [place] [address] Performed By: #### 2 4321-2 #### [facility] CLIA [id number] [address] Sodium [Moles/Vol] 140 mmol/L Normal 136-144 [facility] Comment on above: Order Comment: Speci men Type: BLOOD SPECIMEN Ordering Facility: [facility] Address: [address] [place] [address] Performed By: #### 2 4321-2 #### [facility] CLIA [id number] [address] Urea nitrogen [Mass/Vol] 10 mg/dL Normal 7-21 [facility] Comment on above: Order Comment: Speci men Type: BLOOD SPECIMEN Ordering Facility: [facility] Address: [address] [place] [address] Performed By: #### 2 4321-2 #### [facility] CLIA [id number] [address] [facility] CASE MANAGEMon 03-12-2024 CASE MANAGEM HNO ID: [id number] Author: ANNE TAYLOR LSW Service: ? Author Type: Tone Cabinet Assembler Type: Care Mgt Progress Note Filed: 03/12/2024 12:25 Note Text: CARE MANAGEMENT PROGRESS NOTE SERVICE DATE: 03/12/2024 SERVICE TIME: 12:25 PM LOS: 2 days IMM Follow Up Copy Given: Yes Copy given to:: Patient Method: In Person Verbal confirmation SIGNATURE: NAINA Pagan PATIENT NAME: Berry Abad DATE: March 12, 2024 TIME: 12:25 PM PAGER/CONTACT #: [phone] Normal [facility] CASE MGT INIT ASSESon 2023 CASE MGT INIT ASSES HNO ID: [id number] Author: ANNE TAYLOR LSW Service: ? Author Type: Tone Cabinet Assembler Type: Care Mgt Initial Assessment Filed: 03/12/2024 12:25 Note Text: CARE MANAGEMENT: ASSESSMENT AND DISCHARGE PLAN SERVICE DATE: March 12, 2024 SERVICE TIME: 12:16 PM PCP: Aria Sanchez MD Primary Contact: Extended Emergency Contact Information Primary Emergency Contact: DAVIAN ABAD Address: [place] [address] Relation: Spouse Admission Status: Inpatient Insurance Provider: MEDICARE A AND B Discharge Planning requested by: Per Department Practice Potential Transition Plans Home Advance Directives Current Advance Directive: Health Care Power of Thermo Cementing 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 Operator In Chart: No Current Living Arrangements and Support Lives with: Spouse/significant other Type of Residence: Private Residence (House) Support: Family members, Spouse/significant other How do you manage to accomplish the following: Independent: Ambulation;Bathe/Show er;Dress;Meals/Meal Prep;Going to the bathroom;Medication Management;Transporta tion to appointments/communit y Current Services/Equipment Current Post-Acute Service(s): None Discharge Planning Patient Goal(s): Be able to go home, General wellness, Less pain [place] [facility] Explained: [place] [facility] [place] Given: No Reason Not Given: [...] 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 No 6. CAGE Screening? Yes 7. If [...] home. SIGNATURE: NAINA Pagan PATIENT NAME: Berry Abad DATE: March 12, 2024 TIME: 12:16 PM CONTACT #: [phone] [facility] panel Auto (Bld)on 03-12 Erythrocyte distribution width (RBC) [Ratio] 12.9 % Normal 11.5-15.0 [facility] Comment on above: Order Comment: Speci men Type: BLOOD SPECIMEN Ordering Facility: [facility] Address: [address] [place] [address] Performed By: #### 2 4321-2 #### [facility] CLIA [id number] [address] [facility] Hematocrit (Bld) [Volume fraction] 36.3 % Normal 36.0-46.0 [facility] Comment on above: Order Comment: Speci men Type: BLOOD SPECIMEN Ordering Facility: [facility] Address: [address] [place] [address] Performed By: #### 2 4321-2 #### [facility] CLIA [id number] [address] OF [facility] Hemoglobin (Bld) [Mass/Vol] 11.4 g/dL Low 11.5-15.5 [facility] Comment on above: Order Comment: Speci men Type: BLOOD SPECIMEN Ordering Facility: [facility] Address: [address] [place] [address] Performed By: #### 2 4321-2 #### [facility] CLIA [id number] [address] STATES OF [facility] MCH (RBC) [Entitic mass] 32.9 pg Normal 26.0-34.0 [facility] Comment on above: Order Comment: Speci men Type: BLOOD SPECIMEN Ordering Facility: [facility] Address: [address] [place] [address] Performed By: #### 2 4321-2 #### [facility] CLIA [id number] [address] [place] MCHC (RBC) [Mass/Vol] 31.4 g/dL Normal 30.5-36.0 [facility] Comment on above: Order Comment: Speci men Type: BLOOD SPECIMEN Ordering Facility: [facility] Address: [address] [place] [address] Performed By: #### 2 4321-2 #### [facility] CLIA [id number] [address] OF [facility] MCV (RBC) [Entitic vol] 104.9 fL High 80.0-100.0 [facility] Comment on above: Order Comment: Speci men Type: BLOOD SPECIMEN Ordering Facility: [facility] [facility] Address: [address] [place] [address] Performed By: #### 2 4321-2 #### [facility] CLIA [id number] [address] Nucleated RBC (Bld) [#/Vol] 10*3/uL Normal <0.01 [facility] Comment on above: Order Comment: Speci men Type: BLOOD SPECIMEN Ordering Facility: [facility] Address: [address] [place] [address] Performed By: #### 2 4321-2 #### [facility] CLIA [id number] [address] Platelet mean volume (Bld) [Entitic vol] 9.6 fL Normal 9.0-12.7 [facility] Comment on above: Order Comment: Speci men Type: BLOOD SPECIMEN Ordering Facility: [facility] Address: [address] [place] [address] Performed By: #### 2 4321-2 #### [facility] CLIA [id number] [address] [place] Platelets (Bld) [#/Vol] 188 10*3/uL Normal 150-400 [facility] Comment on above: Order Comment: Speci men Type: BLOOD SPECIMEN Ordering Facility: [facility] Address: [address] [place] [address] Performed By: #### 2 4321-2 #### [facility] CLIA [id number] [address] [place] RBC (Bld) [#/Vol] 3.46 10*6/uL Low 3.90-5.20 [facility] Comment on above: Order Comment: Bob pitt Type: BLOOD SPECIMEN Ordering Facility: [facility] Address: [address] [place] [address] Performed By: #### 2 4321-2 #### [facility] CLIA [id number] [address] WBC (Bld) [#/Vol] 7.37 10*3/uL Normal 3.70-11.00 [facility] Comment on above: Order Comment: Bob yoandy Type: BLOOD SPECIMEN Ordering Facility: [facility] Address: [address] [place] [address] Performed By: #### 2 4321-2 #### [facility] CLIA [id number] [address] CNDSon 03-12-2024 CNDS HNO ID: [id number] Author: CORINNE MENDOZA MD Service: General Surgery [...] a 78-year old female who presented to [facility] ED following a ground level fall on 03/09/24. Patient reported felling dizzy and lightheaded before the incident. +Head strike, +loss of consciousness. Imaging obtained and showed: 1. Right parietal subdural hematoma 3 mm in thickness with minimal localized mass effect 2. Right parietal superficial scalp hematoma 3. Left frontotemporal small scalp laceration and hematoma Given the above findings, patient was transferred to [facility] for further trauma evaluation and admitted [...] to call for appointment?: Scheduled Radha Mosley APRN.[facility] [phone] [facility] [address] PCP Requested Referral Follow-Up Appointment When: In 2 weeks Patient/Parents to call for appointment?: Yes Aria Sanchez MD [phone] [facility]. [facility]. [address] [facility] [address] PCP Req (more content not included)... Normal [facility] Mikaela 03-12-2024 [facility] Telephone (NTBIBA) BERRY ABAD ([id number]) 1945 F Date Time Provider Department 03/12/24 LINDY GRAYSON During your visit today, we recorded the following information about you: Anibal Marin Hany 03/12/2024 2:53 PM Signed Called patient, left detailed message regarding possibly scheduling an eval with our [facility]. Awaiting callback. Anibal Marin Hany 03/13/2024 11:06 AM Signed Patient called back. [...] 05/25/2005 Date Reviewed: 03/10/2024 Reviewed by: Martha Harmon RN - Fully Assessed Reason for Visit: [...] Benign [I10] Routine general medical examination at [facility]*06/10/2009 06/19/2012 Class: Chronic Routine gynecological examination [Z01.419] 06/10/2009 06/19/2012 Class: Chronic Insomnia [G47.00] 06/10/2009 Impaired Fasting Glucose [R73.01] 06/10/2009 Breathing Sounds, Abnormal [R06.9] 06/14/2009 Subdural hematoma (HCC) [S06.5XAA] 03/09/2024 Fall [W19.XXXA] 03/11/2024 Acute cystitis without hematuria [N30.00] 03/11/2024 Encounter Status:Closed by ANIBAL MARIN on 03/12/24 Normal [facility] THERAPY NTon 03-12-2024 THERAPY NT HNO ID: [id number] Author: JOHN BRUNER, PT Service: Physical Therapy Author Type: Physical Therapist Type: Therapy (PT/OT/Speech/Resp) Filed: 03/12/2024 11:55 Note Text: Physical Therapy Evaluation Summary SERVICE DATE: 03/12/2024 SERVICE TIME: 1102 to 1117 ROOM: [place] [address] PT 6 Clicks Score: 22 DISCHARGE RECOMMENDATIONS Home Recommended Discharge Disposition Comments: No ongoing PT needs. Recommend home ASSESSMENT Response to Therapy Interventions: Good Participation in Activities Patient mobilizing safely. No impairments that require ongoing PT. PRECAUTIONS Fall Risk CURRENT HOSPITAL COURSE 78 y/o female presented to hospital on 03/09/2024 post fall at home. Transfer from [facility] with R parietal subdural hematoma, R parietal [...] Skilled Treatment Time (minutes): 15 $ Evaluation-Low (28118) Billed Units: 1 unit TRAINING AND EDUCATION [...] March 12, 2024 TIME: 11:55 AM Normal [facility] THERAPY NT HNO ID: [id number] Author: FARIHA SANTIAGO OTR/L Service: Occupational Therapy Author Type: Occupational Therapist Type: Therapy (PT/OT/Speech/Resp) Filed: 03/12/2024 11:59 Note Text: Occupational Therapy Evaluation Summary SERVICE DATE: 03/12/2024 SERVICE TIME: 1000 to 1033 ROOM: [id number] OT 6 Clicks Score: 19 DISCHARGE RECOMMENDATIONS [...] 03/09/2024 post fall at home. Transfer from [facility] with R parietal subdural hematoma, R parietal [...] Functions and Awareness TREATMENT INTERVENTIONS Evaluation, Self Retirement Management (23316) Timed Code Treatment (minutes): 18 Skilled Treatment Time (minutes): 33 $ Evaluation - Moderate (64215) Billed Units: 1 unit Self Retirement Management (30554) Treatment Minutes: 18 $ Self Retirement Management (76376) Billed Units: 1 unit TRAINING AND EDUCATION PROVIDED Activity Adaptation/Compensato ry Strategies, Assistive Device Use, Bed Mobility, Command Following, Energy Conservation, Functional Mobility Involving ADLs, Grooming Tasks, Insight into Deficits, Life Roles/Routines/Habits , Lower Extremity Dressing, Role of Occupational Therapy, Sitting Balance to Improve [place] with ADLs/Self-Care, Standing Balance to Improve [place] with ADLs/Self-Care, Transfer - Sit to Stand, [...] and prev (more content not included)... Normal [facility] ALLIED HEALTHon 03-11-2024 ALLIED HEALTH HNO ID: [id number] Author: LIEN RAMIRES RT(R) Service: Radiology Author [...] PATIENT PRESENTS WITH AN IMPLANTABLE OR ATTACHED LITIGATION COUNSEL: No RADIOLOGY DEPARTMENT: CT; Exam(s) Completed: Brain PERIPHERAL IV DATA: Not applicable SIGNED BY: RT Kaelyn(R) March 11, 2024 7:28 AM Normal [facility] Basic metabolic 2000 panelon 03-11-2024 Anion gap [Moles/Vol] 9 mmol/L Normal 8-15 [facility] Comment on above: Order Comment: Speci men Type: BLOOD SPECIMEN Ordering Facility: [facility] Address: [address] [place] [address] Performed By: #### 2 4321-2 #### [facility] CLIA [id number] [address] [place] [address] [place] Calcium [Mass/Vol] 8.7 mg/dL Normal 8.5-10.2 [facility] Comment on above: Order Comment: Speci men Type: BLOOD SPECIMEN Ordering Facility: [facility] Address: [address] [place] [address] Performed By: #### 2 4321-2 #### [facility] CLIA [id number] [address] [place] [address] [place] Chloride [Moles/Vol] 106 mmol/L Normal 98-107 [facility] Comment on above: Order Comment: Speci men Type: BLOOD SPECIMEN Ordering Facility: [facility] Address: [address] [place] [address] Performed By: #### 2 4321-2 #### [facility] CLIA [id number] [address] [place] [address] [place] CO2 [Moles/Vol] 25 mmol/L Normal 22-30 [facility] Comment on above: Order Comment: Speci men Type: BLOOD SPECIMEN Ordering Facility: [facility] Address: [address] [place] [address] Performed By: #### 2 4321-2 #### [facility] CLIA [id number] [address] [place] [address] [place] Creatinine [Mass/Vol] 0.98 mg/dL High 0.58-0.96 [facility] Comment on above: Order Comment: Bob pitt Type: BLOOD SPECIMEN Ordering Facility: [facility] Address: [address] [place] [address] Performed By: #### 2 4321-2 #### [facility] CLIA [id number] [address] Creatinine and Glomerular filtration rate.predicted panel (S/P/Bld) 59 mL/min/1.73m??? Low >=60 [facility] Comment on above: Order Comment: Bob pitt Type: BLOOD SPECIMEN Ordering Facility: [facility] Address: [address] [place] [address] Result Comment: Nelia mated Glomerular Filtration Rate [...] GFR. Performed By: #### 2 4321-2 #### [facility] CLIA [id number] [address] STATES OF [facility] Glucose [Mass/Vol] 116 mg/dL High 74-99 [facility] Comment on above: Order Comment: Bob pitt Type: BLOOD SPECIMEN Ordering Facility: [facility] Address: [address] [place] [address] Result Comment: The [place] Diabetes Association (ADA) provides guidance for cutoff [...] Standards of Medical Care in Diabetes 2016, [place] Diabetes Association. Diabetes Care. 2016.39(Suppl 1). Performed By: #### 2 4321-2 #### [facility] CLIA [id number] [address] STATES OF [facility] Potassium [Moles/Vol] 3.9 mmol/L Normal 3.7-5.1 [facility] Comment on above: Order Comment: Speci men Type: BLOOD SPECIMEN Ordering Facility: [facility] Address: [address] [place] [address] Performed By: #### 2 4321-2 #### [facility] CLIA [id number] [address] STATES [facility] Sodium [Moles/Vol] 140 mmol/L Normal 136-144 [facility] Comment on above: Order Comment: Speci men Type: BLOOD SPECIMEN Ordering Facility: [facility] Address: [address] [place] [address] Performed By: #### 2 4321-2 #### [facility] CLIA [id number] [address] STATES [facility] Urea nitrogen [Mass/Vol] 11 mg/dL Normal 7-21 [facility] Comment on above: Order Comment: Speci men Type: BLOOD SPECIMEN Ordering Facility: [facility] Address: [address] [place] [address] Performed By: #### 2 4321-2 #### [facility] CLIA [id number] [address] CBC panel Auto (Bld)on 03-11 Erythrocyte distribution width (RBC) [Ratio] 12.7 % Normal 11.5-15.0 [facility] Comment on above: Order Comment: Speci men Type: BLOOD SPECIMEN Ordering Facility: [facility] Address: [address] [place] [address] Performed By: #### 2 4321-2 #### [facility] CLIA [id number] [address] Hematocrit (Bld) [Volume fraction] 36.1 % Normal 36.0-46.0 [facility] Comment on above: Order Comment: Speci men Type: BLOOD SPECIMEN Ordering Facility: [facility] Address: [address] [place] [address] Performed By: #### 2 4321-2 #### [facility] CLIA [id number] [address] OF [facility] Hemoglobin (Bld) [Mass/Vol] 11.8 g/dL Normal 11.5-15.5 [facility] Comment on above: Order Comment: Speci men Type: BLOOD SPECIMEN Ordering Facility: [facility] Address: [address] [place] [address] Performed By: #### 2 4321-2 #### [facility] CLIA [id number] [address] OF [facility] MCH (RBC) [Entitic mass] 33.8 pg Normal 26.0-34.0 [facility] Comment on above: Order Comment: Speci men Type: BLOOD SPECIMEN Ordering Facility: [facility] Address: [address] [place] [address] Performed By: #### 2 4321-2 #### [facility] CLIA [id number] [address] OF [facility] MCHC (RBC) [Mass/Vol] 32.7 g/dL Normal 30.5-36.0 [facility] Comment on above: Order Comment: Speci men Type: BLOOD SPECIMEN Ordering Facility: [facility] Address: [address] [place] [address] Performed By: #### 2 4321-2 #### [facility] CLIA [id number] [address] [place] MCV (RBC) [Entitic vol] 103.4 fL High 80.0-100.0 [facility] Comment on above: Order Comment: Speci men Type: BLOOD SPECIMEN Ordering Facility: [facility] Address: [address] [place] [address] Performed By: #### 2 4321-2 #### [facility] CLIA [id number] [address] [place] Nucleated RBC (Bld) [#/Vol] 10*3/uL Normal <0.01 [facility] Comment on above: Order Comment: Speci men Type: BLOOD SPECIMEN Ordering Facility: [facility] Address: [address] [place] [address] Performed By: #### 2 4321-2 #### [facility] CLIA [id number] [address] [place] Platelet mean volume (Bld) [Entitic vol] 9.4 fL Normal 9.0-12.7 [facility] Comment on above: Order Comment: Speci men Type: BLOOD SPECIMEN Ordering Facility: [facility] Address: [address] [place] [address] Performed By: #### 2 4321-2 #### [facility] CLIA [id number] [address] [place] Platelets (Bld) [#/Vol] 170 10*3/uL Normal 150-400 [facility] Comment on above: Order Comment: Speci men Type: BLOOD SPECIMEN Ordering Facility: [facility] Address: [address] [place] [address] Performed By: #### 2 4321-2 #### [facility] CLIA [id number] [address] [place] RBC (Bld) [#/Vol] 3.49 10*6/uL Low 3.90-5.20 [facility] Comment on above: Order Comment: Speci men Type: BLOOD SPECIMEN Ordering Facility: [facility] Address: [address] [place] [address] Performed By: #### 2 4321-2 #### [facility] CLIA [id number] [address] [place] WBC (Bld) [#/Vol] 6.03 10*3/uL Normal 3.70-11.00 [facility] Comment on above: Order Comment: Speci men Type: BLOOD SPECIMEN Ordering Facility: [facility] Address: [address] [place], [place] [address] [address] Performed By: #### 2 4321-2 #### [facility] CLIA [id number] [address] [place] [address] [place] CT BRAIN WO IVCONon 03-11-[address] BRAIN WO IVCON * * *Final Report* * * DATE OF EXAM: Mar 11 2024 7:27AM [facility] 0504 - CT BRAIN WO IVCON / [...] without midline shift. No new acute findings. 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PSCB Transcribe Date/Time: Mar 11 2024 7:31A Dictated by : ABELINO CHAN MD This examination was interpreted and the report reviewed and electronically signed by: ABELINO CHAN MD on Mar 11 2024 7:38AM EST [id number] Normal [facility] NURSING PROGon 03-11-2024 NURSING PROG HNO ID: [id number] Author: MERRY SUTHERLAND RN Service: Nursing Author Type: Registered Nurse Type: Nursing Progress Note Filed: 03/11/2024 09:56 Note Text: This RN spot checked Pt's O2 and Pt was sitting at 86-87% on RA. Pt denied SOB and is comfortably resting. This RN placed Pt on 2L and Pt quickly recovered to 93%. Care plan continues. Normal [facility] THERAPY NTon 03-11-2024 THERAPY NT HNO ID: [id number] Author: MABEL BARR CCC-SOLE ROUNDING MACHINE OPERATOR Service: Speech/Swallow Author Type: Speech Language Pathologist Type: Therapy (PT/OT/Speech/Resp) Filed: 03/11/2024 15:18 Note Text: Speech Therapy Speech Evaluation SERVICE DATE: 03/11/2024 SERVICE TIME: 1440 to 1500 ROOM: [id number] IMPRESSION: Functional communication without limitations in: Speech, [...] or unable to respond Stimulus Response/Score Date 10/29 Time 11/26 Name of Hospital 11/26 Repeat Address 11/26 20-1 11/26 Months Reversed 11/26 30 Seconds 11/26 Mlal-Uwoj-Xlbh 11/26 Go/No-Go 11/26 Address Recall 11/26 Total [...] Skilled Need Interventions Provided: Speech Language Eval (30963) $ Speech Language Eval (95626) Billed Units: 1 unit Training and Education [...] for this therapy evaluation/treatment. SIGNATURE: Mabel Barr CCC-SOLE ROUNDING MACHINE OPERATOR PATIENT NAME: Berry Abad DATE: March 11, 2024 TIME: 3:09 PM Normal [facility] 25(OH)D3 SerPl-ncon 2023 25-hydroxyvitamin D3 [Mass/Vol] 43.9 ng/mL Normal >=30.0 [facility] Comment on above: Order Comment: Speci men Type: BLOOD SPECIMENOrdering Facility: [facility] Address: [address] [place] [address] Result Comment: Clas sification of 25 OH Vitamin D status: Deficiency: <= 20.0 ng/ml. Insufficiency: 21.0-29.0 ng/ml. Sufficiency: >= 30.0 ng/ml. Performed By: #### 1 989-3 ####[facility] [id number] [place], [place] [id number] [place] [address] [place] ALLIED HEALTHon 03-10-2024 ALLIED HEALTH HNO ID: [id number] Author: EMMY SAM RT(R) Service: Radiology Author [...] PATIENT PRESENTS WITH AN IMPLANTABLE OR ATTACHED LITIGATION COUNSEL: No RADIOLOGY DEPARTMENT: CT; Exam(s) Completed: Brain PERIPHERAL IV DATA: Not applicable SIGNED BY: RT Eva(R) March 10, 2024 12:05 AM Normal [facility] Basic metabolic 2000 panelon 03-10-2024 Anion gap [Moles/Vol] 10 mmol/L Normal 8-15 [facility] Comment on above: Order Comment: Speci men Type: BLOOD SPECIMENOrdering Facility: [facility] Address: [address] [place] [address] Performed By: #### 2 4321-2, , 2776-09 ####[facility] [id number] [place] [address] [place] Calcium [Mass/Vol] 8.5 mg/dL Normal 8.5-10.2 [facility] Comment on above: Order Comment: Speci men Type: BLOOD SPECIMENOrdering Facility: [facility] Address: [address] [place] [address] Performed By: #### 2 4321-2, , 2776-09 ####[facility]IA [id number] [place] [address] [place] Chloride [Moles/Vol] 106 mmol/L Normal 98-107 [facility] Comment on above: Order Comment: Speci men Type: BLOOD SPECIMENOrdering Facility: [facility] Address: [address] [place] [address] Performed By: #### 2 4321-2, , 2776-09 ####[facility]IA [id number] [place] [address] [place] CO2 [Moles/Vol] 24 mmol/L Normal 22-30 [facility] Comment on above: Order Comment: Speci men Type: BLOOD SPECIMENOrdering Facility: [facility] Address: [address] [place], [place] [address] Performed By: #### 2 4321-2, , 2776-09 ####[facility] [id number] [place] [id number] [place] OF [facility] Creatinine [Mass/Vol] 0.91 mg/dL Normal 0.58-0.96 [facility] Comment on above: Order Comment: Speci men Type: BLOOD SPECIMENOrdering Facility: [facility] Address: [address] [place] [address] Performed By: #### 2 4321-2, , 2776-09 ####[facility] [id number] [address] STATES OF [facility] Creatinine and Glomerular filtration rate.predicted panel (S/P/Bld) 65 mL/min/1.73m??? Normal >=60 [facility] Comment on above: Order Comment: Speci men Type: BLOOD SPECIMENOrdering Facility: [facility] Address: [address] [place] [address] Result Comment: Nelia mated Glomerular Filtration Rate [...] actual GFR. Performed By: #### 2 4321-2, 02250-4, 2776-09 ####[facility]ORY[facility]IA [id number] [place] [address] [place] Glucose [Mass/Vol] 113 mg/dL High 74-99 [facility] Comment on above: Order Comment: Speci men Type: BLOOD SPECIMENOrdering Facility: [facility] Address: [address] [place] [address] Result Comment: The [place] Diabetes Association (ADA) provides guidance for cutoff [...] Standards of Medical Care in Diabetes 2016, [place] Diabetes Association. Diabetes Care. 2016.39(Suppl 1). Performed By: #### 2 4321-2, , 2776-09 ####[facility]ORYCLIA [id number] [place] [address] [place] Potassium [Moles/Vol] 4.4 mmol/L Normal 3.7-5.1 [facility] Comment on above: Order Comment: Speci men Type: BLOOD SPECIMENOrdering Facility: [facility] Address: [address] [place] [address] Performed By: #### 2 4321-2, , 2776-09 ####[facility]ORYCLIA [id number] [place] [address] [place] Sodium [Moles/Vol] 140 mmol/L Normal 136-144 [facility] Comment on above: Order Comment: Speci men Type: BLOOD SPECIMENOrdering Facility: [facility] Address: [address] [place] [address] Performed By: #### 2 4321-2, , 2776-09 ####[facility]ORYCLIA [id number] [place] [address] [place] Urea nitrogen [Mass/Vol] 12 mg/dL Normal 7-21 [facility] Comment on above: Order Comment: Speci men Type: BLOOD SPECIMENOrdering Facility: [facility] Address: [address] [place] [address] Performed By: #### 2 4321-2, 59702-9, 2777-1 ####[facility]ORYCLIA [id number] [address] STATES [place] [facility] CBC panel Auto (Bld)on 03-10 Erythrocyte distribution width (RBC) [Ratio] 12.9 % Normal 11.5-15.0 [facility] Comment on above: Order Comment: Speci men Type: BLOOD SPECIMEN Ordering Facility: [facility] Address: [address] [place] [address] Performed By: #### 2 4321-2 #### [facility] CLIA [id number] [address] [place] [address] [place] [facility] Hematocrit (Bld) [Volume fraction] 38.4 % Normal 36.0-46.0 [facility] Comment on above: Order Comment: Speci men Type: BLOOD SPECIMEN Ordering Facility: [facility] Address: [address] [place] [address] Performed By: #### 2 4321-2 #### [facility] CLIA [id number] [address] [place] [address] [place] [facility] Hemoglobin (Bld) [Mass/Vol] 12.6 g/dL Normal 11.5-15.5 [facility] Comment on above: Order Comment: Speci men Type: BLOOD SPECIMEN Ordering Facility: [facility] Address: [address] [place] [address] Performed By: #### 2 4321-2 #### [facility] CLIA [id number] [address] [place] MCH (RBC) [Entitic mass] 33.2 pg Normal 26.0-34.0 [facility] Comment on above: Order Comment: Speci men Type: BLOOD SPECIMEN Ordering Facility: [facility] Address: [address] [place] [address] Performed By: #### 2 4321-2 #### [facility] CLIA [id number] [address] MCHC (RBC) [Mass/Vol] 32.8 g/dL Normal 30.5-36.0 [facility] Comment on above: Order Comment: Speci men Type: BLOOD SPECIMEN Ordering Facility: [facility] Address: [address] [place] [address] Performed By: #### 2 4321-2 #### [facility] CLIA [id number] [address] MCV (RBC) [Entitic vol] 101.1 fL High 80.0-100.0 [facility] Comment on above: Order Comment: Speci men Type: BLOOD SPECIMEN Ordering Facility: [facility] Address: [address] [place] [address] Performed By: #### 2 4321-2 #### [facility] CLIA [id number] [address] Nucleated RBC (Bld) [#/Vol] 10*3/uL Normal <0.01 [facility] Comment on above: Order Comment: Speci men Type: BLOOD SPECIMEN Ordering Facility: [facility] Address: [address] [place] [address] Performed By: #### 2 4321-2 #### [facility] CLIA [id number] [address] Platelet mean volume (Bld) [Entitic vol] 9.3 fL Normal 9.0-12.7 [facility] Comment on above: Order Comment: Speci men Type: BLOOD SPECIMEN Ordering Facility: [facility] Address: [address] [place] [address] Performed By: #### 2 4321-2 #### [facility] CLIA [id number] [address] [place] Platelets (Bld) [#/Vol] 198 10*3/uL Normal 150-400 [facility] Comment on above: Order Comment: Speci men Type: BLOOD SPECIMEN Ordering Facility: [facility] Address: [address] [place] [address] Performed By: #### 2 4321-2 #### [facility] CLIA [id number] [address] RBC (Bld) [#/Vol] 3.80 10*6/uL Low 3.90-5.20 [facility] Comment on above: Order Comment: Speci men Type: BLOOD SPECIMEN Ordering Facility: [facility] Address: [address] [place] [address] Performed By: #### 2 4321-2 #### [facility] CLIA [id number] [address] WBC (Bld) [#/Vol] 6.56 10*3/uL Normal 3.70-11.00 [facility] Comment on above: Order Comment: Speci men Type: BLOOD SPECIMEN Ordering Facility: [facility] Address: [address] [place] [address] Performed By: #### 2 4321-2 #### [facility] CLIA [id number] [address] CONSULTon 03-10-2024 CONSULT HNO ID: [id number] Author: JOHN BAILEY MD Service: General Surgery [...] on rounds with patient and or patient liability claims representative. This included discussion relating to any of the following: code status, desire for life-sustaining treatments, palliative care, or any changes to medical proxy. John Bailey MD Departments of General Surgery Section of Trauma, Surgery Critical Care, and Acute Care Surgery Pager: [phone] March 10, 2024 Surgical Intensive Care Unit Consult Note SERVICE DATE: 03/10/2024 SERVICE TIME: 1:23 AM REASON FOR CONSULT: Subdural hematoma REQUESTING PHYSICIAN: Trauma team Subjective 78 year old female with past medical history of hypertension presented as a trauma transfer from [facility] following a ground-level fall. Patient states [...] is not on any blood thinners. At [facility], patient underwent a CT scan of her [...] mL INTR (more content not included)... Normal [facility] CT BRAIN WO IVCONon 03-10-20 CT BRAIN WO IVCON * * *Final Report* * * DATE OF EXAM: Mar 10 2024 6:04AM [facility] 0504 - CT BRAIN WO IVCON / [...] and negligible midline shift is also unchanged. 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ANGEL Transcribe Date/Time: Mar 10 2024 6:09A Dictated by : BRIGID WHITTEN MD This examination was interpreted and the report reviewed and electronically signed by: BRIGID WHITTEN MD on Mar 10 2024 6:14AM EST [id number] Normal [facility] CT BRAIN WO IVCON * * *Final Report* * * DATE OF EXAM: Mar 10 2024 12:07AM [facility] 0504 - CT BRAIN WO IVCON / [...] AM via verbal communication. --END OF FINDING-- 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ANGEL Transcribe Date/Time: Mar 10 2024 12:44A Dictated by : HO CHONG MD This examination was interpreted and the report reviewed and electronically signed by: HO CHONG MD on Mar 10 2024 12:51AM EST [id number] N Normal [facility] Calcium.ionized [Moles/Vol]o n 03-10-2024 Calcium.ionized (BldV) [Mass/Vol] 1.12 mmol/L Normal 1.08-1.30 [facility] Comment on above: Order Comment: Bob pitt Type: BLOOD SPECIMEN Ordering Facility: [facility] Address: [address] [place] [address] Performed By: #### 2 4321-2 #### [facility] CLIA [id number] 1 [place] [address] [place] Calcium.ionized adjusted to pH 7.4 (Bld) [Moles/Vol] 1.09 mmol/L Normal 1.08-1.30 [facility] Comment on above: Order Comment: Speci men Type: BLOOD SPECIMEN Ordering Facility: [facility] Address: [facility] [address] Performed By: #### 2 4321-2 #### [facility] CLIA [id number] 1 [place] [id number] [facility] ED NOTEon 03-10-2024 ED NOTE HNO ID: [id number] Author: JOVANA MENDEZ RN Service: ? Author Type: Registered Nurse Type: ED Notes Filed: 03/10/2024 17:09 Note Text: Report called to RN. [facility] ED NOTE HNO ID: [id number] Author: JOVANA MENDEZ RN Service: ? Author Type: Registered Nurse Type: ED Notes Filed: 03/10/2024 17:09 Note Text: [facility] ED NOTE HNO ID: [id number] Author: RUFINA MARTINEZ Tech Service: Abstract Author Type: Inspector Eyeglass Type: ED Notes Filed: 03/10/2024 16:30 Note Text: Pt assisted off the bedpan. Fresh linens applied to the bed. Call-light within reach. [facility] ED NOTE HNO ID: [id number] Author: RUFINA MARTINEZ Tech Service: Abstract Author Type: Inspector Eyeglass Type: ED Notes Filed: 03/10/2024 16:13 Note Text: Pt assisted on bedpan. Pt states she will use the call-light when finished. [facility] ED NOTE HNO ID: [id number] Author: JOVANA MENDEZ RN Service: ? Author Type: Registered Nurse Type: ED Notes Filed: 03/10/2024 16:00 Note Text: Attempt x1, no answer from RN after 3 minutes on hold. [facility] ED NOTE HNO ID: [id number] Author: JOVANA MENDEZ RN Service: ? Author [...] throat. Dr. Spence at bedside and notified. [facility] ED NOTE HNO ID: [id number] Author: ZOILA MCKENNA RN Service: Emergency Medicine Author Type: Registered Nurse Type: ED Notes Filed: 03/10/2024 09:18 Note Text: Neuro surgery Longenecker at bedside at this time. Pt BP 95/36 (55). Discussed with neuro that this RN will be holding the metoprolol. [facility] ED NOTE HNO ID: [id number] Author: ZOILA MCKENNA RN Service: Emergency Medicine Author Type: Registered Nurse Type: ED Notes Filed: 03/10/2024 09:12 Note Text: Dr. Caputo messaged at this time concerning order for metoprolol, pt BP 106/46 (63). Awaiting response at this time. [facility] ED NOTE HNO ID: [id number] Author: ZOILA MCKENNA RN Service: Emergency Medicine Author Type: Registered Nurse Type: ED Notes Filed: 03/10/2024 07:27 Note Text: Dr. Caputo responded at this time that MAP of 66 is acceptable. This RN will continue to monitor pt. [facility] ED NOTE HNO ID: [id number] Author: ZOILA MCKENNA RN Service: Emergency Medicine Author Type: Registered Nurse Type: ED Notes Filed: 03/10/2024 07:15 Note Text: Dr. Caputo messaged at this time concerning pt drop in BP. Awaiting response at this time. [facility] ED NOTE HNO ID: [id number] Author: AUDELIA HEBERT RN Service: Emergency Medicine Author Type: Registered Nurse Type: ED Notes Filed: 03/10/2024 06:32 Note Text: Neuro surg notified about pt nausea that is new this morning. No new orders at this time. [facility] ED NOTE HNO ID: [id number] Author: AUDELIA HEBERT RN Service: Emergency Medicine Author Type: Registered Nurse Type: ED Notes Filed: 03/10/2024 06:19 Note Text: On return to room pt crying stating she feels like she can not urinate and it hurts. Bladder scan 200cc. Pt vomited on CT table as well. No other neuro deficits noted. NICU paged Normal [facility] ED NOTE HNO ID: [id number] Author: AUDELIA HEBERT, RN Service: Emergency Medicine Author Type: Registered Nurse Type: ED Notes Filed: 03/10/2024 02:32 Note Text: Per ICU pt okay to drink sips of water with pills Normal [facility] HISTORY PHYSICALon HISTORY PHYSICAL HNO ID: [id number] Author: RIKI SPENCE MD Service: General Surgery [...] Spence MD Delayed entry TRAUMA SURGERY [facility] ARRIVAL DATE: 03/09/2024 ARRIVAL TIME: Evening CATEGORY: Level 3 consult INJURY DATE: 03/09/2024 INJURY TIME: Afternoon Subjective 78 year old female with past medical history of hypertension presented as a trauma transfer from [facility] following a ground-level fall. Patient states [...] is not on any blood thinners. At [facility], patient underwent a CT scan of her [...] vaccine, full dose, monovalent (MODERNA) 11/19/2020 12/17/2020 08/02/202112/2812/28/2021 COVID-19 vaccine, age 12+ yr, 2022- season [...] use: Yes (more content not included)... Normal [facility] Magnesium SerPl-mCncon 03-10 Magnesium [Mass/Vol] 2.1 mg/dL Normal 1.7-2.3 [facility] Comment on above: Order Comment: Bob pitt Type: BLOOD SPECIMENOrdering Facility: [facility] Address: [address] [place] [address] Performed By: #### 2 4321-2, 08141-7, 2777-1 ####[facility] [id number] [place] [id number] [place] Phosphate SerPl-mCncon 03-10 Phosphate [Mass/Vol] 3.4 mg/dL Normal 2.7-4.8 [facility] Comment on above: Order Comment: Bob pitt Type: BLOOD SPECIMENOrdering Facility: [facility] Address: [address] [place] [address] Performed By: #### 2 4321-2, 98125-5, 2777-1 ####[facility] [id number] [address] [place] STAPHYLOCOCCUS AUREUS AND MR SA SCREEN, PCR, NASALon 03-10-2024 S. aureus and MRSA panel KARLI+probe (Nose) Not detected Normal Not Detected [facility] Comment on above: Order Comment: Speci men Type: SWABOrdering Facility: [facility] Address: [address] [place] [address] Performed By: #### S APCR ####[facility]IA [id number] [address] TOXICOLOGY SCREEN, ROUTINE U RINEon 03-10-2024 Amphetamines Confirm (U) [Mass/Vol] Negative Normal Negative [facility] Comment on above: Order Comment: Speci men Type: URINE SPECIMENOrdering Facility: [facility] Address: [address] [place] [address] Result Comment: Cuto ff threshold at 1000 ng/mL. Performed By: #### U TOX2 ####[facility]ORYCLIA [id number] [place] [address] [place] BARBITURATES, URINE Negative Normal Negative [facility] Comment on above: Order Comment: Speci men Type: URINE SPECIMENOrdering Facility: [facility] Address: [address] [place] [address] Result Comment: Cuto ff threshold at 200 ng/mL. Performed By: #### U TOX2 ####[facility]ORYCLIA [id number] [place] [address] [place] BENZODIAZEPINES, UR Negative Normal Negative [facility] Comment on above: Order Comment: Speci men Type: URINE SPECIMENOrdering Facility: [facility] Address: [address] [place] [address] Result Comment: Cuto ff threshold at 200 ng/mL. Performed By: #### U TOX2 ####[facility]ORYCLIA [id number] [address] [place] Cannabinoids Screen Ql (U) Negative Normal Negative [facility] Comment on above: Order Comment: Speci men Type: URINE SPECIMENOrdering Facility: [facility] Address: [address] [place] [address] Result Comment: Cuto ff threshold at 50 ng/mL. Performed By: #### U TOX2 ####[facility] [id number] [place] [address] [place] Cocaine Ql (U) Negative Normal Negative [facility] Comment on above: Order Comment: Speci men Type: URINE SPECIMENOrdering Facility: [facility] Address: [address] [place] [address] Result Comment: Cuto ff threshold at 300 ng/mL. Performed By: #### U TOX2 ####[facility] [id number] [address] [place] Ethanol (U) [Mass/Vol] 77 mg/dL High <11 [facility] Comment on above: Order Comment: Speci men Type: URINE SPECIMENOrdering Facility: [facility] Address: [address] [place] [address] Performed By: #### U TOX2 ####[facility] [id number] [address] Opiates Screen Ql (U) Negative Normal Negative [facility] Comment on above: Order Comment: Speci men Type: URINE SPECIMENOrdering Facility: [facility] Address: [address] [place] [address] Result Comment: Cuto ff threshold at 300 ng/mL. Performed By: #### U TOX2 ####[facility] [id number] [address] [place] oxyCODONE cutoff Screen (U) [Mass/Vol] Negative Normal Negative [facility] Comment on above: Order Comment: Speci men Type: URINE SPECIMENOrdering Facility: [facility] Address: [address] [place] [address] Result Comment: Cuto ff threshold at 100 ng/mL. Performed By: #### U TOX2 ####[facility]ORYCLIA [id number] [address] Phencyclidine Ql (U) Negative Normal Negative [facility] Comment on above: Order Comment: Speci men Type: URINE SPECIMENOrdering Facility: [facility] Address: [address] [place] [address] Result Comment: Cuto ff threshold at 25 ng/mL. Performed By: #### U TOX2 ####[facility]ORYCLIA [id number] [address] ALLIED HEALTHon 03-09-2024 ALLIED HEALTH HNO ID: [id number] Author: LAMONT CURTIS Tech Service: Radiology Author Type: Inspector Eyeglass Type: Allied Health Filed: 03/09/2024 22:07 Note [...] PATIENT PRESENTS WITH AN IMPLANTABLE OR ATTACHED LITIGATION COUNSEL: No RADIOLOGY DEPARTMENT: CT; Exam(s) Completed: Brain PERIPHERAL IV DATA: Not applicable SIGNED BY: Melissa Ramirez March 09, 2024 10:07 PM Normal [facility] CBC panel Auto (Bld)on 03-09 Erythrocyte distribution width (RBC) [Ratio] 12.6 % Normal 11.5-15.0 [facility] Comment on above: Order Comment: Speci men Type: BLOOD SPECIMEN Ordering Facility: [facility] Address: [address] [place] [address] Performed By: #### 2 4321-2 #### [facility] CLIA [id number] [address] Hematocrit (Bld) [Volume fraction] 42.3 % Normal 36.0-46.0 [facility] Comment on above: Order Comment: Speci men Type: BLOOD SPECIMEN Ordering Facility: [facility] Address: [address] [place] [address] Performed By: #### 2 4321-2 #### [facility] CLIA [id number] [address] OF [facility] Hemoglobin (Bld) [Mass/Vol] 14.1 g/dL Normal 11.5-15.5 [facility] Comment on above: Order Comment: Speci men Type: BLOOD SPECIMEN Ordering Facility: [facility] Address: [address] [place] [address] Performed By: #### 2 4321-2 #### [facility] CLIA [id number] [address] MCH (RBC) [Entitic mass] 33.7 pg Normal 26.0-34.0 [facility] Comment on above: Order Comment: Speci men Type: BLOOD SPECIMEN Ordering Facility: [facility] Address: [address] [place] [address] Performed By: #### 2 4321-2 #### [facility] CLIA [id number] [address] STATES OF [facility] MCHC (RBC) [Mass/Vol] 33.3 g/dL Normal 30.5-36.0 [facility] Comment on above: Order Comment: Speci men Type: BLOOD SPECIMEN Ordering Facility: [facility] Address: [address] [place] [address] Performed By: #### 2 4321-2 #### [facility] CLIA [id number] [address] MCV (RBC) [Entitic vol] 101.0 fL High 80.0-100.0 [facility] Comment on above: Order Comment: Speci men Type: BLOOD SPECIMEN Ordering Facility: [facility] Address: [address] [place] [address] Performed By: #### 2 4321-2 #### [facility] CLIA [id number] [address] [place] Nucleated RBC (Bld) [#/Vol] 10*3/uL Normal <0.01 [facility] Comment on above: Order Comment: Speci men Type: BLOOD SPECIMEN Ordering Facility: [facility] Address: [address] [place] [address] Performed By: #### 2 4321-2 #### [facility] CLIA [id number] [address] [place] Platelet mean volume (Bld) [Entitic vol] 9.9 fL Normal 9.0-12.7 [facility] Comment on above: Order Comment: Speci men Type: BLOOD SPECIMEN Ordering Facility: [facility] Address: [address] [place] [address] Performed By: #### 2 4321-2 #### [facility] CLIA [id number] [address] Platelets (Bld) [#/Vol] 245 10*3/uL Normal 150-400 [facility] Comment on above: Order Comment: Speci men Type: BLOOD SPECIMEN Ordering Facility: [facility] Address: [address] [place] [address] Performed By: #### 2 4321-2 #### [facility] CLIA [id number] [address] [place] RBC (Bld) [#/Vol] 4.19 10*6/uL Normal 3.90-5.20 [facility] Comment on above: Order Comment: Speci men Type: BLOOD SPECIMEN Ordering Facility: [facility] Address: [address] [place] [address] Performed By: #### 2 4321-2 #### [facility] CLIA [id number] [address] [place] WBC (Bld) [#/Vol] 10.54 10*3/uL Normal 3.70-11.00 [facility] Comment on above: Order Comment: Bob men Type: BLOOD SPECIMEN Ordering Facility: [facility] Address: [address] [place] [address] Performed By: #### 2 4321-2 #### [facility] CLIA [id number] [address] CONFIRM BLOOD TYPEon 024 ABO O Normal [facility] Comment on above: Order Comment: Speci men Type: BLOOD SPECIMEN Ordering Facility: [facility] Address: [address] [place] [address] Performed By: #### C ONABO #### [facility] CLIA [id number] [address] Rh Nom (Bld) Positive Normal [facility] Comment on above: Order Comment: Bob yoandy Type: BLOOD SPECIMEN Ordering Facility: [facility] Address: [address] [place] [address] Performed By: #### C ONABO #### [facility] CLIA [id number] [address] CONSULTon 03-09-2024 CONSULT HNO ID: [id number] Author: NANNETTE DE LEON PA-C Service: Neurosurgery Author Type: Physician Rating Clerk Type: Consults Filed: 03/09/2024 20:50 Note Text: [...] HTN, who presents for trauma transfer from [facility] after GLF, found to have right [...] breast - at [facility] - Dr. Henry aGndhi TONSILLECTOMY PRIMARY/SECONDARY Family History: FAMILY HISTORY Problem [...] irregular he (more content not included)... Normal [facility] Comprehensive metabolic 2000 panelon 03-09-2024 Albumin [Mass/Vol] 4.3 g/dL Normal 3.9-4.9 [facility] Comment on above: Order Comment: Speci men Type: BLOOD SPECIMENOrdering Facility: [facility] Address: [address] [place] [address] Performed By: #### 2 4323-8, 3040-3 ####[facility] [id number] [place], [place] [id number] [place] [address] [place] [facility] ALP [Catalytic activity/Vol] 86 U/L Normal 34-123 [facility] Comment on above: Order Comment: Speci men Type: BLOOD SPECIMENOrdering Facility: [facility] Address: [address] [place] [address] Performed By: #### 2 4323-8, 0-3 ####[facility]ORYCLIA [id number] [address] [place] [facility] ALT With P-5'-P [Catalytic activity/Vol] 28 U/L Normal 7-38 [facility] Comment on above: Order Comment: Speci men Type: BLOOD SPECIMENOrdering Facility: [facility] Address: [address] [place] [address] Performed By: #### 2 4323-8, 0-3 ####[facility]ORYCLIA [id number] [address] STATES OF [facility] Anion gap [Moles/Vol] 11 mmol/L Normal 8-15 [facility] Comment on above: Order Comment: Speci men Type: BLOOD SPECIMENOrdering Facility: [facility] Address: [address] [place] [address] Performed By: #### 2 4323-8, 0-3 ####[facility]ORYCLIA [id number] [place], [place] [id number] [place] [address] [place] AST With P-5'-P [Catalytic activity/Vol] 33 U/L Normal 13-35 [facility] Comment on above: Order Comment: Speci men Type: BLOOD SPECIMENOrdering Facility: [facility] Address: [address] [place] [address] Performed By: #### 2 4323-8, 0-3 ####[facility]ORYCLIA [id number] [place] [address] [place] Bilirubin [Mass/Vol] 0.4 mg/dL Normal 0.2-1.3 [facility] Comment on above: Order Comment: Speci men Type: BLOOD SPECIMENOrdering Facility: [facility] Address: [address] [place] [address] Performed By: #### 2 4323-8, 3040-3 ####[facility]ATORYCLIA [id number] [place] [address] [place] Calcium [Mass/Vol] 9.1 mg/dL Normal 8.5-10.2 [facility] Comment on above: Order Comment: Speci men Type: BLOOD SPECIMENOrdering Facility: [facility] [facility] Address: [address] [place] [address] Performed By: #### 2 4323-8, 0-3 ####[facility] LABORATORYCLIA [id number] [place] [address] [place] Chloride [Moles/Vol] 104 mmol/L Normal 98-107 [facility] Comment on above: Order Comment: Speci men Type: BLOOD SPECIMENOrdering Facility: [facility] Address: [address] [place] [address] Performed By: #### 2 4323-8, 0-3 ####[facility] LABORATORYCLIA [id number] [place] [address] [place] CO2 [Moles/Vol] 24 mmol/L Normal 22-30 [facility] Comment on above: Order Comment: Speci men Type: BLOOD SPECIMENOrdering Facility: [facility] Address: [address] [place] [address] Performed By: #### 2 4323-8, 3040-3 ####[facility] LABORATORYCLIA [id number] [place] [address] [place] Creatinine [Mass/Vol] 0.94 mg/dL Normal 0.58-0.96 [facility] Comment on above: Order Comment: Speci men Type: BLOOD SPECIMENOrdering Facility: [facility] Address: [address] [place] [address] Performed By: #### 2 4323-8, 3039-3 ####[facility] SERVICESIA [id number] [address] Creatinine and Glomerular filtration rate.predicted panel (S/P/Bld) 62 mL/min/1.73m??? Normal >=60 [facility] Comment on above: Order Comment: Bob men Type: BLOOD SPECIMENOrdering Facility: [facility] Address: [address] [place] [address] Result Comment: Nelia mated Glomerular Filtration Rate [...] actual GFR. Performed By: #### 2 4323-8, 3 ####[facility] SERVICESIA [id number] [place] [address] [place] Glucose [Mass/Vol] 99 mg/dL Normal 74-99 [facility] Comment on above: Order Comment: Bob pitt Type: BLOOD SPECIMENOrdering Facility: [facility] Address: [address] [place] [address] Result Comment: The [place] Diabetes Association (ADA) provides guidance for cutoff [...] Standards of Medical Care in Diabetes 2016, [place] Diabetes Association. Diabetes Care. 2016.39(Suppl 1). Performed By: #### 2 4323-8, 3040-3 ####[facility] LABORATORYCLIA [id number] [place] [address] [place] Potassium [Moles/Vol] 4.2 mmol/L Normal 3.7-5.1 [facility] Comment on above: Order Comment: Speci men Type: BLOOD SPECIMENOrdering Facility: [facility] Address: [address] [place] [address] Performed By: #### 2 4323-8, 3040-3 ####[facility] LABORATORYCLIA [id number] [place] [address] [place] Protein [Mass/Vol] 6.5 g/dL Normal 6.3-8.0 [facility] Comment on above: Order Comment: Speci men Type: BLOOD SPECIMENOrdering Facility: [facility] Address: [address] [place] [address] Performed By: #### 2 4323-8, 0-3 ####[facility] LABORATORYCLIA [id number] [address] [place] Sodium [Moles/Vol] 139 mmol/L Normal 136-144 [facility] Comment on above: Order Comment: Speci men Type: BLOOD SPECIMENOrdering Facility: [facility] Address: [address] [place] [address] Performed By: #### 2 4323-8, 0-3 ####[facility] LABORATORYCLIA [id number] [place] [address] [place] Urea nitrogen [Mass/Vol] 11 mg/dL Normal 7-21 [facility] Comment on above: Order Comment: Speci men Type: BLOOD SPECIMENOrdering Facility: [facility] Address: [address] [place] [address] Performed By: #### 2 4323-8, 3040-3 ####[facility] LABORATORYCLIA [id number] [place] [address] [place] ECG COMPLETEon 03-09-2024 ECG COMPLETE Ventricular Rate : 6 4 BPM Atrial Rate : 64 BPM P-R Interval : 212 ms QRS Duration : 114 ms Q-T Interval : 452 ms QTC Calculation(Bazett) : 466 ms Calculated P [place] : 41 degrees Calculated R [place] : 40 degrees Calculated T [place] : 25 degrees SINUS RHYTHM WITH 1ST DEGREE A-V BLOCK LOW VOLTAGE QRS INCOMPLETE RIGHT BUNDLE BRANCH BLOCK SEPTAL INFARCT , AGE UNDETERMINED ST & T WAVE ABNORMALITY, CONSIDER ANTERIOR ISCHEMIA ABNORMAL ECG NO PREVIOUS ECGS AVAILABLE Confirmed by MD LAUREN ERICK ([id number]) on 10/28/2024 5:29:35 AM NAME : BERRY ABAD PID : [id number] : 1945 Gender : Female Race : ORD : [id number] Procedure Date : Mar 09 2024 21:32:39 Edit Date : Oct 28 2024 05:29:36 Diagnosis: SINUS RHYTHM WITH 1ST DEGREE A-V BLOCK LOW VOLTAGE QRS INCOMPLETE RIGHT BUNDLE BRANCH BLOCK SEPTAL INFARCT , AGE UNDETERMINED ST & T WAVE ABNORMALITY, CONSIDER ANTERIOR ISCHEMIA ABNORMAL ECG NO PREVIOUS ECGS AVAILABLE Confirmed by MD LAUREN ERICK ([id number]) on 10/28/2024 5:29:35 AM Test Reason : Chest Pain Location : 4 : AKED EM Overread By : MD LAUREN ERICK Edited By : MD LAUREN ERICK Referred By : , Acquired by : SHIN TORRES Normal [facility] ED NOTEon 03-09-2024 ED NOTE HNO ID: [id number] Author: AUDELIA HEBERT RN Service: Emergency Medicine Author Type: Registered Nurse Type: ED Notes Filed: 03/09/2024 21:26 Note Text: CT notified patient is ready for scans. Normal [facility] ED NOTE HNO ID: [id number] Author: AUDELIA HEBERT RN Service: Emergency Medicine Author Type: Registered Nurse Type: ED Notes Filed: 03/09/2024 21:24 Note Text: Pt 88% on RA. Pt placed on 2LNC. ER Resident made aware Normal [facility] ED NOTE HNO ID: [id number] Author: AUDELIA HEBERT RN Service: Emergency Medicine Author Type: Registered Nurse Type: ED Notes Filed: 03/09/2024 21:21 Note Text: Pt asking for pain medication. ER Resident made aware Normal [facility] ED NOTE HNO ID: [id number] Author: AUDELIA HEBERT RN Service: Emergency Medicine Author Type: Registered Nurse Type: ED Notes Filed: 03/09/2024 21:01 Note Text: Guaze and kerlex dressing placed on pt head Normal [facility] ED NOTE HNO ID: [id number] Author: AUDELIA HEBERT RN Service: Emergency Medicine Author Type: Registered Nurse Type: ED Notes Filed: 03/09/2024 20:24 Note Text: Neuro surg at bedside Normal [facility] ED PROV NOTEon 03-09-2024 ED PROV NOTE HNO ID: [id number] Author: ZOILA SILVA DO Service: Emergency Medicine Author Type: Physician Type: ED Provider Notes Filed: 03/09/2024 20:37 Note Text: TEACHING ATTESTATION: I personally saw and examined the patient. I reviewed the resident?s note. I agree with the resident?s assessment and plan unless otherwise noted. A 78-year-old female transferred from [facility] secondary to a fall after having a syncopal episode at home and fell back and struck her head. Patient was transferred to [facility] secondary to a subdural hemorrhage. Patient is [...] EKG if these were not done at [facility]. Both trauma and neurosurgery will evaluate. Patient seen with Dr. Barber, physician, please see her note for full history and physical exam. I agree with the above without significant change. ZOILA SHEIKH 03/09/242036 Normal [facility] ED PROV NOTE HNO ID: [id number] Author: ZOILA SILVA DO Service: Emergency Medicine Author Type: Physician Type: ED Provider Notes Filed: 03/27/2024 07:36 Note Text: ED Provider Note Patient Name: Berry Abad : 1945 SERVICE DATE: 03/09/24 History Patient presents with: Fall: Transfer from [place] for subdural hematoma after a witnessed fall by her . Pt stood and then fell and hit head with +LOC. No blood thinners. Lac on back of head. C spine cleared at [place]. Pt does not remember incident but is A/Ox4 on arrival. 78-year-old female presents to the emergency department via EMS as transfer from [facility] for evaluation of subdural hematoma. Patient [...] her head. Her C-spine was cleared at [facility]. Upon arrival, patient complains of a [...] / Dis (more content not included)... Normal [facility] Ethanol SerPl-mCncon 024 Ethanol [Mass/Vol] 61 mg/dL High <11 [facility] Comment on above: Order Comment: Speci men Type: BLOOD SPECIMEN Ordering Facility: [facility] Address: [address] [place] [address] Performed By: #### 2 4321-2 #### [facility] CLIA [id number] [address] HIGH SENSITIVITY TROPONIN T (INITIAL)on 03-09-2024 Troponin T.cardiac High sensitivity method [Mass/Vol] 7 ng/L Normal <12 [facility] Comment on above: Order Comment: Bob yoandy Type: BLOOD SPECIMEN [facility]ing Facility: [facility] Address: [address] [place] [address] Result Comment: When assessing risk for acute [...] MACE. Performed By: #### 2 4321-2 #### [facility] CLIA [id number] [address] HIGH SENSITIVITY TROPONIN T (SECOND)on 03-09-2024 Troponin T.cardiac High sensitivity method [Mass/Vol] 8 ng/L Normal <12 [facility] Comment on above: Order Comment: Bob yoandy Type: BLOOD SPECIMEN [facility]ing Facility: [facility] Address: [address] [place] [address] Result Comment: When assessing risk for acute [...] MACE. Performed By: #### 2 4321-2 #### [facility] CLIA [id number] [address] [place] Lipase SerPl-cCncon 03-09-20 24 Lipase [Catalytic activity/Vol] 43 U/L Normal 16-61 [facility] Comment on above: Order Comment: Speceric yoandy Type: BLOOD SPECIMENOrdering Facility: [facility] Address: [address] [place] [address] Performed By: #### 2 4323-8, 3040-3 ####[facility] LABORATORYCLIA [id number] [place] [id number] [place] PT panel Coag (PPP)on 2023 INR Coag (PPP) [Relative time] 1.0 {INR} Normal 0.9-1.3 [facility] Comment on above: Order Comment: Bob yoandy Type: BLOOD SPECIMENOrdering Facility: [facility] Address: [address] [place] [address] Result Comment: Brandy min K Antagonist (VKA) Therapeutic Range: INR 2 to 3 (Target INR of 2.5) Note: For patients treated with VKA drugs, such as warfarin, the [place] [employer] 2012 Guideline recommends [...] to 3.5 (target INR of 3). Sarai GH, et al. Chest 2012, 141:7S-47S Lizy RA et al. [facility] 2017, 70: 252-289 Performed By: #### 3 4528-0, 00693-9 ####[facility] LABORATORYCLIA [id number] [place] [id number] [place] PT Coag (PPP) [Time] 10.3 s Normal 9.7-13.0 [facility] Comment on above: Order Comment: Bob yoandy Type: BLOOD SPECIMENOrdering Facility: [facility] Address: [address] [place] [address] Performed By: #### 3 4528-0, 32080-0 ####[facility] LABORATORYCLIA [id number] [address] [place] TYPE + SCREENon 03-09-2024 ABO O Normal [facility] Comment on above: Order Comment: Speci men Type: BLOOD SPECIMEN [facility]ing Facility: [facility] Address: [address] [place] [address] Performed By: #### T SCR #### [facility] CLIA [id number] [address] HISTORICAL AB SCR STATUS Negative [facility] Comment on above: Order Comment: Speci men Type: BLOOD SPECIMEN Ordering Facility: [facility] Address: [address] [place] [address] Performed By: #### T SCR #### [facility] CLIA [id number] [address] Rh Nom (Bld) Positive Normal [facility] Comment on above: Order Comment: Speci men Type: BLOOD SPECIMEN [facility]ing Facility: [facility] Address: [address] [place] [address] Performed By: #### T SCR #### [facility] CLIA [id number] [address] TYPE AND SCREEN EXPIRATION 03/12/2024 23:59 Normal [facility] Comment on above: Order Comment: Speci men Type: BLOOD SPECIMEN [facility]ing Facility: [facility] Address: [address] [place] [address] Performed By: #### T SCR #### [facility] CLIA [id number] [address] [place] Urinalysis complete pnl Uron 03-09-2024 [...] , Intermediate >32 , Resistant >64 Abnormal [facility] Comment on above: Order Comment: Speci men Type: URINE SPECIMENOrdering Facility: [facility] Address: [address] [place] [id number] Performed By: #### 2 4356-8 ####[facility] LABORATORYCLIA [id number] [place] [address] [place] [facility] XR CHEST 1V FRONTALon 2023 XR CHEST [...] displaced fracture. IMPRESSION: No acute radiographic abnormality. 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 IMPRESSION: No acute abnormality. 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[employer] Transcribe Date/Time: Mar 09 2024 9:48P Dictated by : PEMA TRACEY MD This examination was interpreted and the report reviewed and electronically signed by: PEMA TRACEY MD on Mar 09 2024 9:49PM EST [id number] Normal [facility] aPTT PPPon 03-09-2024 aPTT Coag (PPP) [Time] 26.0 s Normal 23.0-32.4 [facility] Comment on above: Order Comment: Speci men Type: BLOOD SPECIMEN Ordering Facility: [facility] Address: [facility] [address] Performed By: #### 2 4321-2 #### [facility] CLIA [id number] [address] [place] [address] [facility] Absolute lymphocyte countOrd ered By: Aria Sanchez on 06-27-2023 Lymphocytes Auto (Unsp spec) [#/Vol] 1.06 10*3/uL 0.83-4.51 [facility] Basophil percentageOrdered B y: Aria Sanchez on 06-27-2023 Basophils/100 WBC (Bld) 0.5 % 0-1 [facility] Bilirubin [Mass/Vol] 0.70 mg/dL 0.20-1.00 [facility] Comment on above: For patients on eltr ombopag therapy, use of Dimension [place] TBIL is not recommended. Chloride [Moles/Vol] 109 mmol/L 98-107 [facility] Eosinophils/100 WBC (Bld) 4.6 % 0-5 [facility] Glucose [Mass/Vol] 102 mg/dL 74-106 [facility] Comment on above: Fasting Glucose resu lt from 100 to 125 mg/dL suggests IMPAIRED HOMEOSTASIS per A.D.A. criteria. Neutrophils (Bld) [#/Vol] 3.7 10*3/uL 2.0-7.7 [facility] Neutrophils/100 WBC (Bld) 66.7 % 47-70 [facility] Potassium [Moles/Vol] 3.7 mmol/L 3.5-5.1 [facility] Protein [Mass/Vol] 6.5 g/dL 6.4-8.2 [facility] Sodium [Moles/Vol] 141 mmol/L 136-145 [facility] WBC (Bld) [#/Vol] 5.6 10*3/uL 4.4-11.0 [facility] Blood erythrocytes count (nu mber/volume)Ordered By: Aria Sanchez on 06-27-2023 RBC (Bld) [#/Vol] 4.15 10*6/uL 4.2-5.4 [facility] Blood hemoglobin measurement (mass/volume)Ordered By: Aria Sanchez on 06-27-2023 Hemoglobin (Bld) [Mass/Vol] 13.6 g/dL 12.0-15.0 [facility] Blood lymphocytes/100 leukoc ytesOrdered By: Aria Sanchez on 06-27-2023 Lymphocytes/100 WBC (Bld) 18.9 % 19-41 [facility] Blood monocytes/100 leukocyt esOrdered By: Aria Sanchez on 06-27-2023 Monocytes/100 WBC (Bld) 9.1 % 0-10 [facility] Blood platelet mean volumeOr dered By: Aria Sanchez on 06-27-2023 Platelet mean volume (Bld) [Entitic vol] 9.4 fL 6.2-12.0 [facility] Determination of erythrocyte mean corpuscular volume (MCV)Ordered By: Aria Sanchez on 06-27-2023 MCV (RBC) [Entitic vol] 102.2 fL 81-99 [facility] Hematocrit Auto (Bld) [Volum e fraction]Ordered By: Aria Sanchez on 06-27-2023 Hematocrit (Bld) [Volume fraction] 42.4 % 37-47 [facility] Laboratory - Chemistry and C hemistry - challengeOrdered By: Aria Sanchez on 06-27-2023 ALP [Catalytic activity/Vol] 90 U/L 45-117 [facility] ALT [Catalytic activity/Vol] 37 U/L 13-56 [facility] CO2 [Moles/Vol] 26.0 mmol/L 21.0-32.0 [facility] Globulin (S) [Mass/Vol] 2.8 g/dL 2.2-4.2 [facility] Urea nitrogen/Creatinine [Mass ratio] 15.8 mg/mg 10-20 [facility] Laboratory - Hematology and Cell countsOrdered By: Aria Sanchez on 06-27-2023 Erythrocyte distribution width (RBC) [Entitic vol] 46.5 fL 35.1-43.9 [facility] Erythrocyte distribution width (RBC) [Ratio] 12.3 % 11.6-14.6 [facility] Immature granulocytes/100 WBC (Bld) 0.200 % 0.0-0.9 [facility] Comment on above: IG% - Immature Granu locytes (promyelocytes, myelocytes and metamyelocytes) > 1% indicates that a LEFT SHIFT is Present. MCH (RBC) [Entitic mass] 32.8 pg 27.0-32.0 [facility] Nucleated RBC/100 WBC (Bld) [Ratio] 0 % 0-5 [facility] MCHC Auto (RBC) [Mass/Vol]Or dered By: Aria Sanchez on 06-27-2023 MCHC (RBC) [Mass/Vol] 32.1 g/dL 32-36 [facility] No Panel InformationOrdered By: Aria Sanchez on 06-27-2023 Estimated GFR (MDRD) Amer 68 mL/min >60 [facility] Comment on above: GFR Calc Estimated GFR (MDRD) Non-Af Amer 56 mL/min >60 [facility] Comment on above: Non- GFR Calc Thyroid Stimulating Hormone (TSH) 4.01 uIU/mL 0.358-3.74 [facility] Urine Microalbumin/Creatinine Ratio 193.3 mg/g CRE <30 [facility] Platelets bldOrdered By: Maria T Sanchez on 06-27-2023 Platelets (Bld) [#/Vol] 222 10*3/uL 150-450 [facility] Serum or plasma albumin moncho urement (mass/volume)Ordered By: Aria Sanchez on 06-27-2023 Albumin [Mass/Vol] 3.7 g/dL 3.2-5.0 [facility] Serum or plasma albumin/glob ulin mass ratioOrdered By: Aria Sanchez on 06-27-2023 Albumin/Globulin [Mass ratio] 1.3 {ratio} 0.9-2.4 [facility] Serum or plasma calcium moncho urement (mass/volume)Ordered By: Aria Sanchez on 06-27-2023 Calcium [Mass/Vol] 8.3 mg/dL 8.5-10.1 [facility] Serum or plasma creatinine m easurement (mass/volume)Ordered By: Aria Sanchez on 06-27-2023 Creatinine [Mass/Vol] 1.01 mg/dL 0.55-1.02 [facility] Comment on above: The validity of the calculated GFR & GFRAA in patients over 70 years has not been determined. Clinical correlation is essential. Serum or plasma urea nitroge n measurement (mass/volume)Ordered By: Aria Sanchez on 06-27-2023 Urea nitrogen [Mass/Vol] 16 mg/dL 7-18 [facility] Thin prep Papanicolaou smear with manual screeningOrdered By: Aria Sanchez on 06-27-2023 Thin prep Papanicolaou smear with manual screening 27 U/L 15-37 [facility] Thin prep Papanicolaou smear with manual screening 6 5-15 [facility] Thin prep Papanicolaou smear with manual screening 150.0 mg/L NO RANGE EST. [facility] Urine creatinine measurement (mass/volume)Ordered By: Aria Sanchez on 06-27-2023 Creatinine (U) [Mass/Vol] 77.60 mg/dL NO RANGE EST. [facility] Basophil percentageon 2021 Basophil percentage 50-100 SEEN /hpf 0-5 [facility] Work Phone: Bilirubin [Mass/Vol] 0.60 mg/dL 0.20-1.00 [facility] Work Phone: Comment on above: For patients on eltr ombopag therapy, use of Dimension [place] TBIL is not recommended. Chloride [Moles/Vol] 106 mmol/L 98-107 [facility] Work Phone: Cholesterol [Mass/Vol] 256 mg/dL <200 [facility] Work Phone: Comment on above: <200 mg/dL Desirable 200-240 mg/dL Borderline >240 mg/dL High Risk Glucose [Mass/Vol] 94 mg/dL 74-106 [facility] Work Phone: Potassium [Moles/Vol] 4.4 mmol/L 3.5-5.1 [facility] Work Phone: Protein [Mass/Vol] 7.2 g/dL 6.4-8.2 [facility] Work Phone: Sodium [Moles/Vol] 141 mmol/L 136-145 [facility] Work Phone: Triglyceride [Mass/Vol] 99 mg/dL <199 [facility] Work Phone: Comment on above: The drugs N-Acetylcy steine and Metamizole may falsely depress this assay.Serum Triglycerides Reference Interval Normal <150 mg/dL Borderline high 150 - 199 mg/dL High 200 - 499 mg/dL Very High > or = 500 mg/dL Bilirubin Test strip Ql (U)o n 05-24-2022 Bilirubin Ql (U) Negative Negative [facility] Work Phone: Ketones Test strip Ql (U)on 05-24-2022 Ketones Ql (U) Negative Negative [facility] Work Phone: Laboratory - Chemistry and C hemistry - challengeon 05-24-2022 ALP [Catalytic activity/Vol] 99 U/L 45-117 [facility] Work Phone: ALT [Catalytic activity/Vol] 30 U/L 13-56 [facility] Work Phone: CO2 [Moles/Vol] 29.0 mmol/L 21.0-32.0 [facility] Work Phone: Free T4 [Mass/Vol] 1.19 ng/dL 0.76-1.46 [facility] Work Phone: Globulin (S) [Mass/Vol] 3.4 g/dL 2.2-4.2 [facility] Work Phone: Urea nitrogen/Creatinine [Mass ratio] 18.1 mg/mg 10-20 [facility] Work Phone: Mucus LM Ql (Urine sed)on Mucus Ql (Urine sed) 0 SEEN /hpf [facility] Work Phone: Nitrite Test strip Ql (U)on 05-24-2022 Nitrite Ql (U) Negative Negative [facility] Work Phone: No Panel Informationon 05-24 Estimated GFR (MDRD) Amer 75 mL/min >60 [facility] Work Phone: Comment on above: GFR Calc Estimated GFR (MDRD) Non-Af Amer 62 mL/min >60 [facility] Work Phone: Comment on above: Non- GFR Calc Thyroid Stimulating Hormone (TSH) 1.50 uIU/mL 0.358-3.74 [facility] Work Phone: Urine Microalbumin/Creatinine Ratio 107.8 mg/g CRE <30 [facility] Work Phone: Vitamin D 25-Hydroxy 108.4 ng/mL [facility] Work Phone: Comment on above: Vitamin D [...] elevated values when tested with the [employer] Centaur Vitamin D assay. With fluorescein interference, observed Vitamin D values can be as high as >150 ng/mL (>375 nmol/L). Samples should be resubmitted post fluorescein clearance to ensure there is no interference with Vitamin D test results. Protein Test strip Ql (U)on 05-24-2022 Protein Ql (U) Negative Negative [facility] Work Phone: Serum or plasma albumin moncho urement (mass/volume)on 05-24-2022 Albumin [Mass/Vol] 3.8 g/dL 3.2-5.0 [facility] Work Phone: Serum or plasma albumin/glob ulin mass ratioon 05-24-2022 Albumin/Globulin [Mass ratio] 1.1 {ratio} 0.9-2.4 [facility] Work Phone: Serum or plasma calcium moncho urement (mass/volume)on 05-24-2022 Calcium [Mass/Vol] 9.3 mg/dL 8.5-10.1 [facility] Work Phone: Serum or plasma cholesterol in HDL measurement (mass/volume)on 05-24-2022 Cholesterol in HDL [Mass/Vol] 74 mg/dL >40 [facility] Work Phone: Comment on above: The drugs N-Acetylcy steine and Metamizole may falsely depress this assay. Reference Range HDL <40 mg/dL Low HDL Cholesterol HDL >or= 60 mg/dL High HDL Cholesterol Serum or plasma cholesterol in VLDL measurement (mass/volume)on 05-24-2022 Cholesterol in VLDL [Mass/Vol] 20 mg/dL 5-40 [facility] Work Phone: Serum or plasma creatinine m easurement (mass/volume)on 05-24-2022 Creatinine [Mass/Vol] 0.94 mg/dL 0.55-1.02 [facility] Work Phone: Comment on above: The validity of the calculated GFR & GFRAA in patients over 70 years has not been determined. Clinical correlation is essential. Serum or plasma low density lipoprotein (LDL) cholesterol measurement (mass/volume)on 05-24-2022 Cholesterol in LDL [Mass/Vol] 162 mg/dL 0-130 [facility] Work Phone: Serum or plasma urea nitroge n measurement (mass/volume)on 05-24-2022 Urea nitrogen [Mass/Vol] 17 mg/dL 7-18 [facility] Work Phone: Squamous epithelial cells de tection in urine sediment by light microscopyon 05-24-2022 Epithelial cells.squamous LM Ql (Urine sed) 0 SEEN /hpf 5-10 [facility] Work Phone: Thin prep Papanicolaou smear with manual screeningon 05-24-2022 Thin prep Papanicolaou smear with manual screening 29 U/L 15-37 [facility] Work Phone: Thin prep Papanicolaou smear with manual screening 6 5-15 [facility] Work Phone: Thin prep Papanicolaou smear with manual screening 16.5 mg/L NO RANGE EST. [facility] Work Phone: Urine blood detectionon 04-27 RBC Ql (U) Negative Negative [facility] Work Phone: RBC Ql (U) 0 SEEN /hpf 0-5 [facility] Work Phone: Urine clarityon 05-24-2022 Clarity (U) Clear Clear [facility] Work Phone: Urine color determinationon 05-24-2022 Color (U) Yellow Yellow [facility] Work Phone: Urine creatinine measurement (mass/volume)on 05-24-2022 Creatinine (U) [Mass/Vol] 15.30 mg/dL NO RANGE EST. [facility] Work Phone: Urine glucose detectionon Glucose Ql (U) Normal mg/dl Normal [facility] Work Phone: Urine leukocyte esterase det ection by dipstickon 05-24-2022 Leukocyte esterase Test strip Ql (U) 500 /ul Negative [facility] Work Phone: Urine pHon 05-24-2022 pH (U) 6.0 [pH] 5.0 - 8.0 [facility] Work Phone: Urine sediment bacteria coun t by microscopy (number/high power field)on 05-24-2022 Bacteria LM.HPF (Urine sed) [#/Area] 1 /[HPF] None Seen [facility] Work Phone: Urine specific gravity measu rementon 05-24-2022 Specific gravity (U) [Rel density] 1.010 1.002-1.030 [facility] Work Phone: Urobilinogen Auto test strip Ql (U)on 05-24-2022 Urobilinogen Ql (U) Normal mg/dl Normal [facility] Work Phone: Culture, urine Bacteria identified Cx Nom (U) Escherichia coli [facility] Work Phone: Vital Signs Date Time Vital Sign Value Performing Clinician Faci lity 06-20-2025 08:10-0400 Diastolic blood pressure 80 mm[Hg] Dr. Aria Sanchez MD Work Phone: [facility] 06-20-2025 08:10-0400 Heart rate 61 /min Dr. Aria Sanchez MD Work Phone: [facility] 06-20-2025 08:10-0400 Respiratory rate 18 /min Dr. Aria Sanchez MD Work Phone: [facility] 06-20-2025 08:10-0400 SaO2% (BldA) [Mass fraction] 95 % Dr. Aria Sanchez MD Work Phone: [facility] 06-20-2025 08:10-0400 Systolic blood pressure 111 mm[Hg] Dr. Aria Sanchez MD Work Phone: [facility] 05-28-2025 14:01-0400 Body height 162.[address] Aria Sanchez MD Work Phone: [facility] 05-28-2025 14:01-0400 Body mass index (BMI) [Ratio] 25.7 kg/m2 Dr. Aria Sanchez MD Work Phone: [facility] 05-28-2025 14:01-0400 Body temperature 98.1 [degF] Dr. Aria Sanchez MD Work Phone: [facility] 05-28-2025 14:01-0400 Body weight 67.[address] Aria Sanchez MD Work Phone: [facility] 05-28-2025 14:01-0400 Diastolic blood pressure 75 mm[Hg] Dr. Aria Sanchez MD Work Phone: [facility] 05-28-2025 14:01-0400 Heart rate 58 /min Dr. Aria Sanchez MD Work Phone: 0(587)693-750826 [place] [address] 05-28-2025 14:01-0400 Respiratory rate 16 /min Dr. Aria Sanchez MD Work Phone: 0(822)099-302926 [place] [address] 05-28-2025 14:01-0400 SaO2% (BldA) [Mass fraction] 94 % Dr. Aria Sanchez MD Work Phone: 2(241)442-524326 [place] [address] 05-28-2025 14:01-0400 Systolic blood pressure 115 mm[Hg] Dr. Aria Sanchez MD Work Phone: 1(855)855-616426 [place] [address] 05-28-2025 10:33-0400 Diastolic blood pressure 73 mm[Hg] Dr. Aria Sanchez MD Work Phone: 3(984)981-506926 [place] [address] 05-28-2025 10:33-0400 Heart rate 56 /min Dr. Aria Sanchez MD Work Phone: 9(985)751-488126 [place] [address] 05-28-2025 10:33-0400 Respiratory rate 18 /min Dr. Aria Sanchez MD Work Phone: 9(301)928-565226 [place] [address] 05-28-2025 10:33-0400 SaO2% (BldA) [Mass fraction] 91 % Dr. Aria Sanchez MD Work Phone: 4(379)535-596726 [place] [address] 05-28-2025 10:33-0400 Systolic blood pressure 130 mm[Hg] Dr. Aria Sanchez MD Work Phone: 8(557)322-052526 [place] [address] 05-24-2025 11:38-0400 Diastolic blood pressure 68 mm[Hg] Dr. Aria Sanchez MD Work Phone: 5(751)554-315726 [place] [address] 05-24-2025 11:38-0400 Heart rate 61 /min Dr. Aria Sanchez MD Work Phone: 5(700)949-364728 [place] [address] 05-24-2025 11:38-0400 Respiratory rate 18 /min Dr. Aria Sanchez MD Work Phone: 1(195)371-620628 [place] [address] 05-24-2025 11:38-0400 SaO2% (BldA) [Mass fraction] 95 % Dr. Aria Sanchez MD Work Phone: 5(225)062-227943 [address] 05-24-2025 11:38-0400 Systolic blood pressure 106 mm[Hg] Dr. Aria Sanchez MD Work Phone: 0(066)264-936026 [place] [address] 05-21-2025 13:14-0400 Body height 162.[address] Aria Sanchez MD Work Phone: 1(882)333-362626 [place] [address] 05-16-2025 09:32-0400 Body height 162.[address] Aria Sanchez MD Work Phone: 8(135)454-407126 [place] [address] 05-16-2025 09:32-0400 Body mass index (BMI) [Ratio] 24.9 kg/m2 Dr. Aria Sanchez MD Work Phone: 2(810)204-286926 [place] [address] 05-16-2025 09:32-0400 Body temperature 96.9 [degF] Dr. Aria Sanchez MD Work Phone: 6(048)957-630826 [place] [address] 05-16-2025 09:32-0400 Body weight 65.[address] Aria Sanchez MD Work Phone: 7(199)970-348726 [place] [address] 05-16-2025 09:32-0400 Diastolic blood pressure 79 mm[Hg] Dr. Aria Sanchez MD Work Phone: 2(871)455-933026 [place] [address] 05-16-2025 09:32-0400 Heart rate 58 /min Dr. Aria Sanchez MD Work Phone: 9(958)554-566926 [place] [address] 05-16-2025 09:32-0400 Respiratory rate 18 /min Dr. Aria Sanchez MD Work Phone: 7(594)149-991326 [place] [address] 05-16-2025 09:32-0400 SaO2% (BldA) [Mass fraction] 94 % Dr. Aria Sanchez MD Work Phone: 6(864)163-508126 [place] [address] 05-16-2025 09:32-0400 Systolic blood pressure 127 mm[Hg] Dr. Aria Sanchez MD Work Phone: 1(345)182-106226 [place] [address] 05-16-2025 08:29-0400 Body height 162.[address] Aria Sanchez MD Work Phone: 6(665)562-510928 [place] [address] 05-16-2025 08:29-0400 Body temperature 98.3 [degF] Dr. Aria Sanchez MD Work Phone: 6(817)818-858026 [place] [address] 05-16-2025 08:29-0400 Diastolic blood pressure 71 mm[Hg] Dr. Aria Sanchez MD Work Phone: 5(272)637-232826 [place] [address] 05-16-2025 08:29-0400 Heart rate 64 /min Dr. Aria Sanchez MD Work Phone: 8(149)992-153526 [place] [address] 05-16-2025 08:29-0400 Respiratory rate 16 /min Dr. Aria Sanchez MD Work Phone: 9(213)374-538026 [place] [address] 05-16-2025 08:29-0400 SaO2% (BldA) [Mass fraction] 94 % Dr. Aria Sanchez MD Work Phone: 9(339)757-167426 [place] [address] 05-16-2025 08:29-0400 Systolic blood pressure 107 mm[Hg] Dr. Aria Sanchez MD Work Phone: 4(631)739-022626 [place] [address] 05-08-2025 16:00-0400 Diastolic blood pressure 65 mm[Hg] Dr. Aria Sanchez MD Work Phone: 4(230)693-468126 [place] [address] 05-08-2025 16:00-0400 Heart rate 65 /min Dr. Aria Sanchez MD Work Phone: 7(487)208-427226 [place] [address] 05-08-2025 16:00-0400 Respiratory rate 18 /min Dr. Aria Sanchez MD Work Phone: 7(581)588-324226 [place] [address] 05-08-2025 16:00-0400 SaO2% (BldA) [Mass fraction] 92 % Dr. Aria Sanchez MD Work Phone: 5(320)977-918426 [place] [address] 05-08-2025 16:00-0400 Systolic blood pressure 100 mm[Hg] Dr. Aria Sanchez MD Work Phone: 7(895)723-157626 [place] [address] 05-02-2025 09:00-0400 Body height 162.[address] Aria Sanchez MD Work Phone: [facility] 05-02-2025 09:00-0400 Body temperature 97.5 [degF] Dr. Aria Sanchez MD Work Phone: 0(411)105-097243 [address] 05-02-2025 09:00-0400 Diastolic blood pressure 83 mm[Hg] Dr. Aria Sanchez MD Work Phone: 6(396)889-487526 [place] [address] 05-02-2025 09:00-0400 Heart rate 71 /min Dr. Aria Sanchez MD Work Phone: 4(972)968-476943 [address] 05-02-2025 09:00-0400 Respiratory rate 18 /min Dr. Aria Sanchez MD Work Phone: 0(784)488-619526 [place] [address] 05-02-2025 09:00-0400 SaO2% (BldA) [Mass fraction] 92 % Dr. Aria Sanchez MD Work Phone: 5(141)183-260526 [place] [address] 05-02-2025 09:00-0400 Systolic blood pressure 128 mm[Hg] Dr. Aria Sanchez MD Work Phone: 8(011)078-051326 [place] [address] 04-26-2025 10:47-0400 Diastolic blood pressure 72 mm[Hg] Dr. Aria Sanchez MD Work Phone: 4(413)959-082626 [place] [address] 04-26-2025 10:47-0400 Heart rate 56 /min Dr. Aria Sanchez MD Work Phone: 5(885)095-693426 [place] [address] 04-26-2025 10:47-0400 Respiratory rate 18 /min Dr. Aria Sanchez MD Work Phone: 5(876)788-988843 [address] 04-26-2025 10:47-0400 SaO2% (BldA) [Mass fraction] 95 % Dr. Aria Sanchez MD Work Phone: 8(940)099-063026 [place] [address] 04-26-2025 10:47-0400 Systolic blood pressure 121 mm[Hg] Dr. Aria Sanchez MD Work Phone: 8(937)839-450726 [place] [address] 04-18-2025 10:51-0400 Body height 162.[address] Aria Sanchez MD Work Phone: 7(744)536-212026 [place] [address] 04-11-2025 14:53-0400 Body temperature 98.2 [degF] Dr. Aria Sanchez MD Work Phone: 1(202)484-452626 [place] [address] 04-11-2025 14:53-0400 Diastolic blood pressure 85 mm[Hg] Dr. Aria Sanchez MD Work Phone: 1(434)183-443626 [place] [address] 04-11-2025 14:53-0400 Heart rate 82 /min Dr. Aria Sanchez MD Work Phone: 4(847)001-743226 [place] [address] 04-11-2025 14:53-0400 Inhaled oxygen flow rate 2 L/min Dr. Aria Sanchez MD Work Phone: 3(732)176-598626 [place] [address] 04-11-2025 14:53-0400 Respiratory rate 19 /min Dr. Aria Sanchez MD Work Phone: 0(418)547-752826 [place] [address] 04-11-2025 14:53-0400 SaO2% (BldA) [Mass fraction] 91 % Dr. Aria Sanchez MD Work Phone: 8(154)798-839726 [place] [address] 04-11-2025 14:53-0400 Systolic blood pressure 157 mm[Hg] Dr. Aria Sanchez MD Work Phone: 4(175)030-961926 [place] [address] 04-10-2025 16:39-0400 Body height 162.[address] Aria Sanchez MD Work Phone: 7(027)631-098326 [place] [address] 04-10-2025 16:39-0400 Body mass index (BMI) [Ratio] 26 kg/m2 Dr. Aria Sanchez MD Work Phone: 4(802)065-693426 [place] [address] 04-10-2025 16:39-0400 Body weight 68.[address] Aria Sanchez MD Work Phone: 5(700)014-451126 [place] [address] 03-28-2025 09:53-0400 Diastolic blood pressure 79 mm[Hg] Dr. Aria Sanchez MD Work Phone: 5(393)838-090626 [place] [address] 03-28-2025 09:53-0400 Heart rate 86 /min Dr. Aria Sanchez MD Work Phone: 6(001)443-794628 [place] [address] 03-28-2025 09:53-0400 Respiratory rate 18 /min Dr. Aria Sanchez MD Work Phone: 3(974)279-822328 [place] [address] 03-28-2025 09:53-0400 SaO2% (BldA) [Mass fraction] 90 % Dr. Aria Sanchez MD Work Phone: 4(688)019-900426 [place] [address] 03-28-2025 09:53-0400 Systolic blood pressure 123 mm[Hg] Dr. Aria Sanchez MD Work Phone: 9(404)305-351926 [place] [address] 03-22-2025 08:11-0400 Body height 162.[address] Aria Sanchez MD Work Phone: 9(133)028-894226 [place] [address] 03-22-2025 08:11-0400 Body mass index (BMI) [Ratio] 24.9 kg/m2 Dr. Aria Sanchez MD Work Phone: 8(275)469-893026 [place] [address] 03-22-2025 08:11-0400 Body temperature 97.6 [degF] Dr. Aria Sanchez MD Work Phone: 3(313)451-761426 [place] [address] 03-22-2025 08:11-0400 Body weight 65.[address] Aria Sanchez MD Work Phone: 0(230)532-276126 [place] [address] 03-22-2025 08:11-0400 Diastolic blood pressure 85 mm[Hg] Dr. Aria Sanchez MD Work Phone: 2(852)486-624826 [place] [address] 03-22-2025 08:11-0400 Heart rate 52 /min Dr. Aria Sanchez MD Work Phone: 1(618)788-924426 [place] [address] 03-22-2025 08:11-0400 Respiratory rate 18 /min Dr. Aria Sanchez MD Work Phone: 9(945)618-727826 [place] [address] 03-22-2025 08:11-0400 SaO2% (BldA) [Mass fraction] 98 % Dr. Aria Sanchez MD Work Phone: 9(882)756-522526 [place] [address] 03-22-2025 08:11-0400 Systolic blood pressure 147 mm[Hg] Dr. Aria Sanchez MD Work Phone: 9(049)702-300126 [place] [address] 03-18-2025 11:00-0400 Body height 162.[address] Aria Sanchez MD Work Phone: [facility] 03-18-2025 11:00-0400 Body weight 66.[address] Aria Sanchez MD Work Phone: [facility] 03-15-2025 09:14-0400 Body mass index (BMI) [Ratio] 25 kg/m2 Dr. Aria Sanchez MD Work Phone: 4(480)670-030226 [place] [address] 03-13-2025 14:32-0400 Diastolic blood pressure 78 mm[Hg] Dr. Aria Sanchez MD Work Phone: 0(620)232-879426 [place] [address] 03-13-2025 14:32-0400 Heart rate 68 /min Dr. Aria Sanchez MD Work Phone: 1(277)702-388826 [place] [address] 03-13-2025 14:32-0400 Respiratory rate 18 /min Dr. Aria Sanchez MD Work Phone: 9(544)213-195626 [place] [address] 03-13-2025 14:32-0400 SaO2% (BldA) [Mass fraction] 97 % Dr. Aria Sanchez MD Work Phone: 7(682)871-444926 [place] [address] 03-13-2025 14:32-0400 Systolic blood pressure 130 mm[Hg] Dr. Aria Sanchez MD Work Phone: 0(761)862-534228 [place] [address] 03-06-2025 14:56-0400 Body height 162.[address] Aria Sanchez MD Work Phone: 1(623)825-948628 [place] [address] 03-06-2025 14:56-0400 Body mass index (BMI) [Ratio] 25.4 kg/m2 Dr. Aria Sanchez MD Work Phone: 6(386)504-161843 [address] 03-06-2025 14:56-0400 Body weight 67.[address] Aria Sanchez MD Work Phone: 1(751)267-145626 [place] [address] 03-06-2025 14:56-0400 Diastolic blood pressure 89 mm[Hg] Dr. Aria Sanchez MD Work Phone: 6(337)049-584528 [place] [address] 03-06-2025 14:56-0400 Respiratory rate 16 /min Dr. Aria Sanchez MD Work Phone: [facility] 03-06-2025 14:56-0400 Systolic blood pressure 162 mm[Hg] Dr. Aria Sanchez MD Work Phone: [facility] 04-12-2024 11:52-0400 Body height 165.1 cm Radha Fegatelli HEALTH AND SAFETY REPRESENTATIVE.NURSING CARE ATTENDANT Work Phone: [facility] 04-12-2024 11:52-0400 Body mass index (BMI) [Ratio] 24.4 kg/m2 Radha Fegatelli HEALTH AND SAFETY REPRESENTATIVE.NURSING CARE ATTENDANT Work Phone: [facility] 04-12-2024 11:52-0400 Body weight 66.5 kg Radha Fegatelli HEALTH AND SAFETY REPRESENTATIVE.NURSING CARE ATTENDANT Work Phone: [facility] 04-12-2024 11:52-0400 Diastolic blood pressure 81 mm[Hg] Radha Fegatelli HEALTH AND SAFETY REPRESENTATIVE.NURSING CARE ATTENDANT Work Phone: [facility] 04-12-2024 11:52-0400 Heart rate 67 /min Radha Fegatelli HEALTH AND SAFETY REPRESENTATIVE.NURSING CARE ATTENDANT Work Phone: [facility] 04-12-2024 11:52-0400 Respiratory rate 16 /min Radha Fegatelli HEALTH AND SAFETY REPRESENTATIVE.NURSING CARE ATTENDANT Work Phone: [facility] 04-12-2024 11:52-0400 SaO2% (BldA) [Mass fraction] 96 % Radha Fegatelli HEALTH AND SAFETY REPRESENTATIVE.NURSING CARE ATTENDANT Work Phone: [facility] 04-12-2024 11:52-0400 Systolic blood pressure 130 mm[Hg] Radha Fegatelli HEALTH AND SAFETY REPRESENTATIVE.NURSING CARE ATTENDANT Work Phone: [facility] Encounters Encounter Date Encounter Type Care Provider Facility Start: 07-26-2025 [facility] Start: 07-23-2025 End: 07-23-2025 ambulatory Aria Sanchez Facility:[facility] Start: 07-18-2025 End: 07-18-2025 ambulatory Giacomo Philip Facility:[facility] Start: 07-01-2025 End: 07-01-2025 ambulatory Aria Sanchez Facility:[facility] Start: 06-20-2025 End: 06-20-[address] Giacomo Philip MD -[facility] Work Phone: Start: 06-20-2025 End: 06-20-[address] Aria Sanchez MD Work Phone: -[facility] Start: 05-28-2025 End: 05-28-2025 Patient encounter procedure Ayla Mega BRITTON-Hany -[facility] Work Phone: Start: 05-28-2025 End: 05-28-[address] Aria Sanchez MD Work Phone: -[facility] Start: 05-28-2025 End: 05-28-[address] Giacomo Philip MD -[facility] Work Phone: Start: 05-28-2025 End: 05-28-[address] Aria Sanchez MD Work Phone: -[facility] Start: 05-24-2025 End: 05-24-[address] Giacomo Philip MD -[facility] Work Phone: Start: 05-24-2025 End: 05-24-[address] Aria Sanchez MD Work Phone: -[facility] Start: 05-21-2025 End: 05-21-[address] Aria Sanchez MD Work Phone: -[facility] Start: 05-21-2025 End: 05-21-[address] Godwin Lawrence MD -[facility] Work Phone: Start: 05-21-2025 End: 05-21-2025 ambulatory Godwin Lawrence Facility:[facility] Start: 05-16-[address] Angelica Lawrence MD -[facility] Start: 05-16-2025 ambulatory Godwin Lawrence Facili ty:[facility] Start: 05-16-2025 End: 05-16-[address] Giacomo Philip MD -[facility] Work Phone: Start: 05-16-2025 End: 05-16-[address] Aria Sanchez MD Work Phone: -[facility] Start: 05-08-2025 End: 05-08-[address] Giacomo Philip MD -[facility] Work Phone: Start: 05-08-2025 End: 05-08-[address] Aria Sanchez MD Work Phone: -[facility] Start: 05-02-2025 End: 05-02-[address] Giacomo Philip MD -[facility] Work Phone: Start: 05-02-2025 End: 05-02-[address] Aria Sanchez MD Work Phone: -[facility] Start: 05-01-2025 Encounter for genera l adult medical examination without abnormal findings Aria Sanchez [facility] Start: 04-26-2025 End: 04-26-[address] Giacomo Philip MD -[facility] Work Phone: Start: 04-26-2025 End: 04-26-[address] Aria Sanchez MD Work Phone: -[facility] Start: 04-24-2025 End: 04-24-[address] Rufina Godinez MD -[facility] Work Phone: Start: 04-24-2025 End: 04-24-[address] Aria aSnchez MD Work Phone: -[facility] Start: 04-23-2025 End: 04-23-[address] Aria Sanchez MD Work Phone: -[facility] Start: 04-23-2025 End: 04-23-[address] Aria Sanchez MD -[facility] Start: 04-23-2025 End: 04-23-2025 ambulatory Aria Sanchez Facility:[facility] Start: 04-19-2025 End: 04-19-[address] Aria Sanchez MD Work Phone: -[facility] Start: 04-19-2025 End: 04-19-[address] Aria Sanchez MD -[facility] Start: 04-18-2025 End: 04-18-[address] Giacomo Philip MD -[facility] Work Phone: Start: 04-18-2025 End: 04-19-[address] Aria Sanchez MD Work Phone: -[facility] Start: 04-11-2025 Non-patient / Non-visit Dr. Giacomo landry MD -[facility] Start: 04-10-2025 ambulatory Giacomo Philip Facility:[facility] Start: 04-10-2025 ambulatory Rufina Decker y:[facility] Start: 04-10-2025 Non-patient / Non-visit Dr. Gurinder Godinez MD -[facility] Start: 04-10-2025 Non-patient / Non-visit Dr. Giacomo landry MD -[facility] Start: 04-10-2025 End: 04-11-2025 Admission to same day surgery center Dr. Rufina Godinez MD [facility] Start: 04-10-2025 End: 04-11-[address] Aria Sanchez MD Work Phone: [facility] Start: 04-02-2025 End: 04-02-2025 ambulatory [facility] [place] Start: 04-02-2025 End: 04-02-2025 Non-patient / Non-visit Dr. Kameron Gamez MD -[facility] Work Phone: Start: 03-28-2025 End: 03-28-[address] Giacomo Philip MD -[facility] Work Phone: Start: 03-28-2025 End: 03-28-[address] Aria Sanchez MD Work Phone: -[facility] Start: 03-26-2025 Non-patient / Non-visit Dr. Shelli young MD -[facility] Work Phone: Start: 03-22-2025 End: 03-22-[address] Rufina Godinez MD -[facility] Work Phone: Start: 03-22-2025 End: 03-22-[address] Aria Snachez MD Work Phone: [facility] Work Phone: Start: 03-18-2025 End: 03-18-2025 Admission to same day surgery center Dr. Kameron Gamez MD -Performance [facility]/Special Procedures Work Phone: Start: 03-18-2025 End: 03-18-[address] Aria Sanchez MD Work Phone: [facility] Work Phone: Start: 03-13-2025 End: 03-13-[address] Aria Sanchez MD Work Phone: [facility] Work Phone: Start: 03-13-2025 End: 03-13-[address] Giacomo Philip MD -[facility] Work Phone: Start: 03-07-2025 End: 03-07-[address] Giacomo Philip MD -[facility] Work Phone: Start: 03-07-2025 End: 03-07-[address] Aria Sanchez MD Work Phone: [facility] Work Phone: Start: 03-06-2025 End: 03-06-[address] Aria Sanchez MD Work Phone: [facility] Work Phone: Start: 03-06-2025 End: 03-06-[address] Rufina Godinez MD -Laboratory Specimen Work Phone: Start: 03-06-2025 End: 03-06-[address] Rufina Godinez MD -[facility] Work Phone: Start: 03-06-2025 End: 03-06-[address] Aria Sanchez MD Work Phone: [facility] Work Phone: Start: 03-06-2025 End: 03-06-2025 ambulatory Rufina Godinez Facility:[facility] Start: 03-01-2025 End: 03-01-[address] Aria Sanchez MD Work Phone: -[facility] Start: 03-01-2025 End: 03-01-[address] Kameron Gamez MD -[facility] [facility] Work Phone: Start: 02-28-2025 ambulatory Kamilah Barrow [place] [facility] Start: 02-28-2025 Non-patient / Non-visit Dr. Kell GARVEY -[facility] Start: 02-20-2025 End: 02-20-[address] Aira Sanchez MD Work Phone: [facility] Work Phone: Start: 02-20-2025 End: 02-20-[address] Aria Sanchez MD -[facility] Work Phone: Start: 02-20-2025 End: 02-20-2025 ambulatory Aria Sanchez Facility:[facility] Start: 02-15-2025 End: 02-15-[address] Aria Sanchez MD Work Phone: [facility] Work Phone: Start: 02-15-2025 End: 02-15-[address] Aria Sanchez MD -Outpatient Breast Imaging Work Phone: Start: 02-15-2025 End: 02-15-2025 ambulatory Aria Sanchez Facility:[facility] Start: 02-05-2025 End: 02-05-[address] Aria Sanchez MD Work Phone: [facility] Work Phone: Start: 02-05-2025 End: 02-05-[address] Aria Sanchez MD -Laboratory Work Phone: Start: 02-05-2025 End: 02-05-2025 ambulatory Aria Sanchez Facility:[facility] Start: 12-19-2024 End: 12-19-2024 ambulatory Kameron Gamez [place] Start: 12-19-2024 End: 12-19-[address] Kameron Gamez MD -[facility] Work Phone: Start: 09-20-2024 End: 09-20-2024 ambulatory Kameron Gamez [place] Start: 08-06-2024 End: 08-06-2024 ambulatory Aria Sanchez Facility:[facility] Start: 05-10-2024 End: 05-10-2024 ambulatory RADHA MOSLEY Facility:[facility] Start: 05-10-2024 End: 05-10-2024 Patient encounter procedure Radha Mosley APRN.NURSING CARE ATTENDANT Work Phone: [facility] Comment on above: Subdural hematoma (H CC) (Primary Dx) Start: 05-10-2024 End: 05-10-2024 Telemedicine consultation with patient Radha Dimitri HADDADNURSING CARE ATTENDANT Work Phone: [facility] Start: 05-07-2024 End: 05-07-2024 ambulatory RADHA MOSLEY Facility:[facility] Start: 05-07-2024 End: 05-07-2024 Subsequent hospital visit by physician Kamila [facility] (I-Stat) Work Phone: Cat Scan Comment on above: Subdural hematoma (H CC) [S06.5XAA] Start: 04-12-2024 End: 04-12-2024 Patient encounter procedure Radha Mosley APRN.NURSING CARE ATTENDANT Work Phone: [facility] Comment on above: Subdural hematoma (H CC) (Primary Dx) Start: 04-12-2024 End: 04-12-2024 [facility] Start: 04-09-2024 End: 04-09-2024 ambulatory ARIA SANCHEZ Facility:[facility] Start: 04-09-2024 End: 04-09-2024 Subsequent hospital visit by physician [facility] (I-Stat) Work Phone: Cat Scan Comment on above: SDH (subdural hemato ma) ([facility]) [S06.5XAA] Start: 03-12-2024 Telephone encounter Lindy bauer PhD Work Phone: Neurology Comment on above: Appointment Start: 03-09-2024 [facility] Start: 07-13-2023 Non-patient / Non-visit Dr. Jaylon Sanchez Work Phone: [facility] Start: 07-13-2023 End: 07-13-[address] Aria Sanchez Work Phone: [facility] Work Phone: Start: 07-13-2023 End: 07-13-[address] Aria Sanchez Work Phone: [facility]-Cardiovascular Services Work Phone: Start: 06-27-2023 End: 06-27-[address] Aria Sanchez Work Phone: [facility]-Laboratory Work Phone: Start: 11-15-2022 End: 11-15-2022 ambulatory [facility] Work Phone: Start: 11-15-2022 End: 11-15-2022 Patient encounter procedure [facility]-Outpatient Breast Imaging Start: 05-24-2022 End: 05-24-2022 ambulatory [facility] Work Phone: Start: 05-24-2022 End: 05-24-2022 Patient encounter procedure [facility] Start: 06-10-2009 End: 06-19-2012 Patient encounter status Lindy Grayson PhD Work Phone: [facility] Procedures Date Procedure Procedure Detail Performing Clinician Start: 05-21-2025 Dual energy X-ray absorptiometry Dr. Aria Sanchez MD Work Phone: Start: 05-16-[address] Aria mares MD Work Phone: Start: 04-10-2025 Insertion of prosthe sis for breast Dr. Aria Sanchez MD Work Phone: Start: 04-10-[address] Aria Sanchez MD Work Phone: Start: 04-10-2025 Radionuclide sentine l lymph node study Dr. Aria Sanchez MD Work Phone: Start: 02-15-2025 Screening mammography Jed Sanchez MD Work Phone: Start: 02-05-2025 Urine [...] Work Phone: Start: 05-07-2024 Ct head/brain w/o contrast material Radha Mosley HEALTH AND SAFETY REPRESENTATIVE.NURSING CARE ATTENDANT Work Phone: Start: 04-09-2024 Ct head/brain w/o contrast material Aris Marin HEALTH AND SAFETY REPRESENTATIVE.NURSING CARE ATTENDANT Work Phone: Start: 03-09-2024 Antibody screen RADHA KWONG Comment on above: Order Comment: Speci men Type: BLOOD SPECIMEN Ordering Facility: [facility] Address: [facility] [address] Performed By: #### T SCR #### [facility] CLIA [id number] [address] [place] [id number] [place] Start: 11-15-2022 Screening mammograph y of left breast History of mastectomy Status pos t mastectomy Dr. Aria Sanchez MD Work Phone: Comment on above: TE placement left br east History of mastectomy Status pos t mastectomy Dr. Giacomo Philip MD History of mastectomy Status pos t mastectomy Dr. Rufina Godinez MD History of mastectomy Status pos t mastectomy Dr. Giacomo Philip MD History of mastectomy Status pos t mastectomy Dr. Giacomo Philip MD History of mastectomy Status pos t mastectomy Dr. Giacomo Philip MD History of mastectomy Status pos t mastectomy Dr. Giacomo Philip MD History of mastectomy Status pos t mastectomy Dr. Giacomo Philip MD History of mastectomy Status pos t mastectomy Dr. Giacomo Philip MD History of mastectomy Status pos t mastectomy Dr. Giacomo Philip MD Urine culture Plan of Treatment Date Care Activity Detail Author Start: 10-28-2032 Urine microalbumin profile DTaP,Tdap,Td Vaccine (2 - Td or Tdap) [facility] Start: 03-12-2027 Diabetes Screening Diabetes Screening [facility] Start: 07-30-2025 ambulatory Facility:[facility] Start: 05-16-2025 CBC W Auto Differential panel - Blood [facility] Start: 05-16-2025 Comprehensive metabolic 2000 panel - Serum or Plasma [facility] Start: 05-16-2025 Procedure [facility] Start: 05-16-2025 [facility] Start: 04-11-2025 Patient discharge [facility] Start: 04-11-2025 Referral to service [facility] Start: 04-10-2025 End: 04-10-2025 Following clinical pathway protocol [facility] Start: 04-10-2025 Oxygen therapy [facility] Start: 04-10-2025 Catheterization of vein [facility] Start: 04-10-2025 Consultation [facility] Start: 04-10-2025 Incentive spirometry [facility] Start: 04-10-2025 Maintenance of drainage tube [facility] Start: 04-10-2025 Measuring intake and output [facility] Start: 04-10-2025 Notification of physician [facility] Start: 04-10-2025 Vital signs measurements [facility] Start: 04-10-2025 [facility] Start: 04-10-2025 Anes integ extremities ant trunk & perineum nos ANESTH SKIN EXT/PER/ATRUNK [facility] Start: 04-10-2025 Biopsy of axillary lymph node BIOPSY/REMOVAL LYMPH NODES [facility] Start: 04-10-2025 Brst rcnstj immt/dlyd w/tiss structural metal fabricator apprentice sbsq xpnsj TISS XPNDR PLMT BRST RCNSTJ [facility] Start: 04-10-2025 Bx/exc lymph node open deep axillary node BIOPSY/REMOVAL LYMPH NODES [facility] Start: 04-10-2025 Implnt bio implnt for soft tissue reinforcement ACELLULAR DERM MATRIX IMPLT [facility] Start: 04-10-2025 Iv injection test vascular flow flap/graft TEST FOR BLOOD FLOW IN GRAFT [facility] Start: 04-10-2025 Mastectomy simple complete MAST SIMPLE COMPLETE [facility] Start: 04-10-2025 Prophylactic mastectomy MAST SIMPLE COMPLETE [facility] Start: 04-10-2025 Ambulation without limitation [facility] Start: 04-10-2025 Admission procedure [facility] Start: 04-02-2025 Electrocardiographic procedure [facility] Start: 03-19-2025 Patient discharge [facility] Start: 05-27-2024 Influenza vaccination Influenza Vaccine (#1) [facility] Start: 05-10-2024 End: 05-10-2024 Patient encounter procedure 05/10/2024 3:[address] [facility] [address] [place] [id number] Radha Mosley, HEALTH AND SAFETY REPRESENTATIVE.NURSING CARE ATTENDANT [address] [place] [address] phone visit call [phone] CT 05/07 [facility] Comment on above: phone visit call [phone] CT 05/07 Start: 05-07-2024 End: 05-07-2024 Patient encounter procedure 05/07/2024 11:00 AM EDT Appointment [facility] [address] [place] [address] CT BRAIN WO IVCON Cat Scan Comment on above: CT BRAIN WO IVCON Start: 04-12-2024 End: 04-12-2024 Patient encounter procedure [facility] Comment on above: 4 week hosp f/u SDH - 4 week hosp f/ u Start: 04-09-2024 End: 04-09-2024 Patient encounter procedure 04/09/2024 10:00 AM EDT Appointment [facility] [address] [place] [address] SDH (subdural hematoma) (HCC) [S06.5XAA] [facility] Comment on above: SDH (subdural hematoma) (HCC) [S06.5XAA] Start: 01-07-2024 Covid-19 Vaccine () Covid-19 Vaccine () [facility] Start: 09-26-2023 Advance Directive Discussion Advance Directive Discussion [facility] Start: 09-26-2023 Behavioral Health Screening Behavioral Health Screening [facility] Start: 1963 Annual PCP Team Chronic Disease Visit Annual PCP Team Chronic Disease Visit [facility] Start: 1963 BP Controlled (<130/80) BP Controlled (<130/80) [facility] Start: 1963 Depression Screening Depression Screening [facility] Alanine aminotransfe rase [Enzymatic activity/volume] in Serum or Plasma [facility] Albumin [Mass/volume ] in Serum or Plasma [facility] Alkaline phosphatase [Enzymatic activity/volume] in Serum or Plasma [facility] Anion gap in Serum or Plasma [facility] Bilirubin, total measurement [facility] BUN/Creatinine ratio [facility] Calcium [Mass/volume ] in Serum or Plasma [facility] Carbon dioxide, tota l [Moles/volume] in Central venous blood [facility] Creatinine [Mass/vol ume] in Serum or Plasma [facility] End: 05-12-2025 CT Head WO contrast CT BRAIN WO [facility] Radiology Routine Subdural hematoma (HCC) 1 Occurrences starting 04/12/2024 until 05/12/2025 [facility] Work Phone: Comment on above: 1 Occurrences starting 04/12/2024 until 05/12/2025 DXA Bone [Mass/Area] Bone density [facility] Erythrocyte mean cor puscular volume determination [facility] Glucose [Mass/volume ] in Serum or Plasma [facility] Hematocrit [Volume F raction] of Blood [facility] Hemoglobin [Mass/vol ume] in Blood [facility] Leukocytes [#/volume ] in Blood [facility] Mean corpuscular hem oglobin concentration determination [facility] Mean corpuscular hem oglobin determination [facility] Measurement of renal function [facility] Neutrophil count [facility] Neutrophil percent differential count [facility] Patient referral [facility] Work Phone: Platelets [#/volume] in Blood [facility] Potassium measurement [facility] Red blood cell count [facility] Red cell distributio n width determination [facility] Serum chloride measurement [facility] Sodium measurement [facility] Total protein measurement [facility] Urea nitrogen [Mass/ volume] in Serum or Plasma [facility] US Breast limited [facility] Immunizations Immunization Date Immunization Notes Care Provider Fa deepa 06-11-2023 influenza virus vaccine, unspecified formulation Ct (I-Stat) Work Phone: [facility] 12-17-2020 Covid (Moderna) [facility] 11-19-2020 Covid (Moderna) [facility] 07-27-2007 influenza virus vaccine, unspecified formulation Lindy Grayson PhD Work Phone: [facility] Work Phone: 06-30-2007 tetanus and diphther ia toxoids, adsorbed, preservative free, for adult use (2 Lf of tetanus toxoid and 2 Lf of diphtheria toxoid) Lindy Grayson PhD Work Phone: [facility] Work Phone: Payers Date Payer Category Payer Self-pay [id number] 2021 Unknown MMO MMO MEDICARE SUPPLEMENT [id number] 2021-Present [phone] [address] [place] [address] Indemnity [id number] 2021 Unknown [id number] 2019 Medicare [id number] 2015 Private Health Insurance [id number] 2010 Medicare MEDICARE MEDICAR E A AND B [id number] 2010-Present [phone] [address] [address] [place] [address] Medicare [id number] 2010 Medicare [id number] Unknown [id number] 2.16840.1.432716.3.579.2. 462 Unknown [id number] 2.16840.1.521380.3.579.2. 462 Unknown [id number] 2.16840.1.430644.3.579.2. 462 Unknown [id number] 2.16.840.1.565582.3.579.2. 462 Unknown [id number] 2.16840.1.388231.3.579.2. 462 Unknown [id number] 2.16840.1.581113.3.579.2. 462 Unknown [id number] 2.16.840.1.880175.3.579.2. 462 Unknown [id number] 2.16.840.1.609369.3.579.2. 462 Unknown [id number] 2.16.840.1.480916.3.579.2. 462 Unknown [id number] 2.16.840.1.736755.3.579.2. 462 Unknown [id number] 2.16840.1.604020.3.579.2. 462 Unknown [id number] 2.16840.1.272581.3.579.2. 462 Unknown [id number] 2.840.1.617941.3.579.2. 462 Unknown [id number] 2.840.1.991876.3.579.2. 462 Unknown [id number] 2.840.1.045856.3.579.2. 462 Unknown [id number] 2.840.1.508009.3.579.2. 462 Unknown [id number] 2.840.1.574506.3.579.2. 462 Unknown [id number] 2.840.1.220529.3.579.2. 462 Unknown [id number] 2.16840.1.498342.3.579.2. 462 Unknown [id number] 2.16840.1.426639.3.579.2. 462 Unknown [id number] 2.16840.1.806414.3.579.2. 462 Unknown [id number] 2.16840.1.195228.3.579.2. 462 Unknown [id number] 2.16840.1.302524.3.579.2. 462 Unknown [id number] 2.16840.1.196576.3.579.2. 462 Unknown [id number] 2.16840.1.313171.3.579.2. 462 Unknown [id number] 2.16.840.1.893374.3.579.2. 462 Unknown [id number] 2.16.840.1.209144.3.579.2. 462 Unknown [id number] 2.16.840.1.668069.3.579.2. 462 Unknown [id number] 2.16840.1.897118.3.579.2. 462 Unknown [id number] 2.16840.1.130006.3.579.2. 462 Unknown [id number] 2.840.1.839677.3.579.2. 462 Unknown [id number] 2.840.1.730359.3.579.2. 462 Unknown [id number] 2.840.1.183486.3.579.2. 462 Unknown [id number] 2.840.1.580607.3.579.2. 462 Unknown [id number] 2.840.1.878338.3.579.2. 462 Unknown [id number] 2.840.1.907305.3.579.2. 462 Unknown [id number] 2.840.1.081986.3.579.2. 462 Unknown [id number] 2.840.1.804625.3.579.2. 462 Unknown [id number] 2.840.1.969691.3.579.2. 462 Unknown [id number] .840.1.790759.3.579.2. 462 Unknown [id number] 2.840.1.116961.3.579.2. 462 Unknown [id number] 2.840.1.853895.3.579.2. 462 Social History Date Type Detail Facility Start: 06-10-2021 End: 06-10-2021 Tobacco smoking status TXIS Unknown if ever smoked [facility] Start: 1945 Sex Assigned At Female [facility] Start: 06-19-2012 End: 04-18-2025 Tobacco smoking status NHIS Ex-smoker [facility] Work Phone: End: 09-26-2001 History of tobacco use Current smoker [facility] End: 09-26-2001 History of tobacco use Cigarette Smoker [facility] Start: 06-19-2012 End: 03-10-2024 Cigarettes smoked current (pack per day) - Reported 0.5 [facility] Start: 06-19-2012 End: 04-12-2024 Tobacco use and exposure Smokeless tobacco non-user [facility] Start: 05-10-2022 End: 05-10-2024 Alcohol intake Current drinker of alcohol (finding) [facility] Start: 03-10-2024 End: 03-12-2024 [facility] Has the [employer], [employer], oil, or water company threatened to shut off services in your home in past 12Mo No [facility] (I/We) worried wheth er (my/our) food would run out before (I/we) got money to buy more. Never true [facility] In the past 12 month s, has lack of transportation kept you from medical appointments or from getting medications? No [facility] Start: 1945 Sex Assigned At Not on file [facility] NEGATED: Highlighted row Not [facility] Medical Equipment Procedure Code Equipment Code [...] SUTURE,LIGA CLIP SM LT-100 FDA Start: 04-10-2025 ([id number]) Implantable card iac monitor [id number] FDA Start: 03-20-2024 550cc tisue expa nder ([id number]) FDA Start: 04-10-2025 flex hd (Q4128) FDA Start: 04-10-2025 550cc tisue expa nder ([id number]) FDA Start: 04-10-2025 flex hd (Q4128) FDA Start: 04-10-2025 550cc tisue expa nder ([id number]) FDA Start: 04-10-2025 flex hd ([id number]) FDA Start: 04-10-2025 550cc tisue expa nder ([id number]) FDA Start: 04-10-2025 flex hd ([id number]) FDA Start: 04-10-2025 550cc tisue expa nder ([id number]) FDA Start: 04-10-2025 flex hd ([id number]) FDA Start: 04-10-2025 550cc tisue expa nder ([id number]) FDA Start: 04-10-2025 flex hd ([id number]) FDA Start: 04-10-2025 550cc tisue expa nder ([id number]) FDA Start: 04-10-2025 flex hd ([id number]) FDA Start: 04-10-2025 550cc tisue expa nder ([id number]) FDA Start: 04-10-2025 flex hd ([id number]) FDA Start: 04-10-2025 550cc tisue expa nder ([id number]) FDA Start: 04-10-2025 flex hd ([id number]) FDA Start: 04-10-2025 550cc tisue expa nder ([id number]) FDA Start: 04-10-2025 flex hd ([id number]) FDA Start: 04-10-2025 550cc tisue expa nder ([id number]) FDA Start: 04-10-2025 flex hd ([id number]) FDA Start: 04-10-2025 550cc tisue expa nder ([id number]) FDA Start: 04-10-2025 flex hd ([id number]) FDA Start: 04-10-2025 550cc tisue expa nder ([id number]) FDA Start: 04-10-2025 flex hd ([id number]) FDA Start: 04-10-2025 550cc tisue expa nder ([id number]) FDA Start: 04-10-2025 flex hd ([id number]) FDA Start: 04-10-2025 Goals Date Patient Goal Desired Activity /State Functional Status Date Assessment Result Facility 04-11-2025 Functional status Chair [facility] Work Phone: Mental Status Date Assessment Result Facility 04-11-2025 Cognitive function Level Of Cons ciousness Awake;Alert;Appropriate;Follow s Commands [facility] Work Phone: 04-10-2025 Cognitive function Voice/Name [facility] Work Phone: Clinical Notes 03-10-2024 to 06-20-2025 Note Date & Type Note Facility 06-20-2025 Progress note [facility] 05-28-2025 Progress note [facility] 05-28-2025 Progress note Note Date/Time May 28, 2025 3:14pm [facility] H ealt System [facility] [address] [place] [address] OFFICE VISIT Date of Service: 05/28/25 1355 MR#: [id number] Acct: [id number] Name: BERRY ABAD JOVANA Rep #: [id number] : 1945 From: Ayla Corrales ch CONTROL AREA OPERATOR CONTROL AREA OPERATOR-C Age/Sex: 79/F [place] [facility] Status: Signed HPI Subjective Date of Service 05/28/25 Chief Complaint Education visit- AI History of Present Illness 79-year-old female past history of right breast cancer status postmastectomy no adjuvant treatment received (as per patient giving history, no records available). She presented in January 2025 following an abnormal screening mammogram and ultrasound and a biopsy proven invasive lobular carcinoma on March 06, 2025. April 10, 2025 left mastectomy with sentinel lymph node biopsy: MICROSCOPIC DIAGNOSIS A. Lymph nodes, sentinel, left, [...] - ER: positive (100%, strong intensity) - MT: negative - [id number]: negative (score 0) - Biopsy site changes, focal organizing fat necrosis. SYNOPTIC REPORT FOR INVASIVE BREAST CARCINOMA Specimen (P=partial, M=mastectomy): M Laterality (R=right, L=left): L Focality (U=unifocal, M=multifocal): U Tumor size (cm): 0.9 cm Histologic type: invasive lobular Histologic grade: 2 Tubule score (1-3): 3 Nuclear score (1-3): 2 Mitotic score (1-3): 1 Skin, nipple epidermis, skeletal muscle (I=involved, N=negative, NA=not applicable): N Lymphovascular invasion (E=extensive, F=focal, N=not identified): N Margins of main specimen (P=positive, N=negative): N Distance to closest margin of main specimen (mm): 2.5 mm Designation of closest margin of main specimen: superior Designation of other margins of main specimen </=1 mm: NA Re-resection margin status (P=positive, N=negative, NA=not applicable): NA DCIS (P=present, N=not identified): P Nuclear grade: low Comedo necrosis (P=present, N=not identified): N Extensive intraductal component (P=present, N=not identified): N Margins of main specimen (P=positive, N=negative): N Distance to closest margin of main specimen (mm): 4 mm Designation of closest margin of main specimen: superior Designation of other margins of main specimen </=2 mm: NA Longest span </= 2 mm to margin of main specimen (mm): NA Re-resection margin status (P=positive, N=negative, NA=not applicable): NA Regional lymph nodes: Total number of lymph nodes: 3 Number of sentinel lymph nodes: 3 Number with macrometastases: 0 Number with micrometastases: 0 Number with isolated tumor cells: 0 Size of largest lakshmi metastasis (mm): NA Size of extranodal extension (mm) (N=not identified): NA Estrogen receptor: positive (100%, strong intensity) Progesterone receptor: negative HER2 IHC: negative HER2 FISH: NA Specimen in which ER/MT/HER2 performed: [id number] pTNM[facility] test: No known pathogenic or likely pathogenic variants were detected. Treatment Summary: Interval History The patient is presenting to clinic for an education visit to discuss endocrine therapy. Verbalizes she has concerns about taking anastrozole citing side effects she read about online including effects on cholesterol. [facility] Medical History (Updated 05/28/25 @ 14:02 by Ayla Ayoub CONTROL AREA OPERATOR, CONTROL AREA OPERATOR-C) Encounter for education Wears hearing aid Wears glasses Post-menopausal Cancer [...] Essential (primary) hypertension Surgical History History of left mastectomy Hx of neck surgery History of breast reconstruction H/O section History of appendectomy History of mastectomy Family History Brother , age 49 Cancer lung Father Heart disease Mother Dementia Social History Smoking Status: Former smoker quit date: 09/26/04 pack-years: 40 Tobacco: How many years used: 40 how long ago did patient quit smokin years ago second hand exposure: Yes alcohol intake: current alcohol intake frequency: 0-2 drinks per day Alcohol type: wine ROS ROS Narrative Negative except as documented in the interval HPI Intake Vital Signs 05/16/25 09:32 05/21/25 13:14 05/28/25 13:56 05/28/25 14:01 Height 5 ft 4 in 5 ft 4 in 5 ft 4 in 5 ft 4 in Weight: 149 lb 9 oz BMI 25.7 BP 115/75 Blood Pressure Location Lt brachial Position Sitting Respiration 16 Pulse 58 L Pulse Source Monitor Temp 98.1 F Temperature Source Temporal Artery Pulse Oximetry (%) 94 Oxygen Delivery Method room air Intake Is patient in pain?: No Allergies bupropion HCl (From Zyban) Allergy (Severe, Verified 05/28/25 14:00) Hives red dye Allergy (Mild, Verified 05/28/25 14:00) Itching bupropion (From Zyban) Allergy (Verified 05/28/25 14:00) Hives hydrocodone (From Vicodin) Adverse Reaction (Verified 05/28/25 14:00) N/V hydromorphone Adverse Reaction (Verified 05/28/25 14:00) constipation Medications ?Medication ?Instructions ?Recorded ?Confirmed ?Type [id number]-[id number] 8 mg-folic 400 1 ea PO DAILY SUPPLE MENT 05/27/16 05/28/25 History mcg-K 50 mcg-lutein 300 mcg tablet atorvastatin 40 mg tablet 40 mg PO QHS CHOLESTEROL #90 tabs 07/12/24 05/28/25 Rx famotidine-Ca carb-mag hydrox 10 1 tab PO DAILY PRN in digestion 07/12/24 05/28/25 History mg-800 mg-165 mg chewable tablet (Pepcid Complete) metoprolol succinate 25 mg 25 mg PO DAILY BP #90 tabs 07/12/24 05/28/25 Rx tablet,extended release 24 hr (Toprol XL) levothyroxine 75 mcg tablet 75 mcg PO DAILY THYROID 05/28/25 History acetaminophen 325 mg tablet 650 mg (2 x 325 mg) PO Q6H PRN PRN 04/11/25 05/28/25 Rx Pain Score 1-10 #0 tabs docusate sodium 100 mg capsule 100 mg PO BID #10 caps 04/11/25 05/28/25 Rx (Colace) lactobacillus combination no.9 4 4,000 mmu cells PO QD AY 05/16/25 05/28/25 History billion cell capsule (Adult 50 Plus Probiotic) Have you fallen in the past year?: No Central Venous Access Central Venous Access: No Exam Physical Exam Narrative ECOG 0 Const alert, oriented x3 and no apparent distress General Appearance: comfortable and well kempt HEENT Face and Sinus: normal facial exam General Ear: hearing grossly impaired Psych mental status grossly normal Attitude: calm and engaged Coding Level of Care Code Off vis,est,level 5 Exam Problem Focused Diagnoses Invasive lobular carcinoma of breast in female C50.919 Encounter for education Z71.9 Assessment and Plan Assessment and Plan (1) Invasive lobular carcinoma of breast in female: Status: Acute Comment: Left (2) Encounter for education: Status: Acute Medications: Discontinued benzonatate Discontinued Reason: Pt no longer taking 200 mg PO TID PRN 20 caps 0RF cough melatonin Discontinued Reason: Pt no longer taking 20 mg PO HS PRN insomnia Plan 79-year-old female with invasive lobular cancer of the left breast stage I (T1, N0, M0) ER positive (100% strong) MT negative and HER2 equivocal 2+ by IHC negative by FISH, overall grade 2. Patient is status post left mastectomy with sentinel lymph node biopsy March 2025. Past medical history notable for right breast cancer status postmastectomy no adjuvant treatment in her 30s. No other first-degree relatives with breast cancer. Genetic testing negative for pathogenic variants. Chronic comorbid conditions dyslipidemia, hypertension, hearing loss. Recommendations: Based on NCCN guidelines and up-to-date review of treatment of early-stage invasive breast cancer with a curative intent: 1. Adjuvant hormonal therapy with an aromatase inhibitor for 5 years. The patient has been thoroughly educated to risks/benefits associated with anastrozole. Specifically, she has been educated to potential side effects, recommendations for symptom management, and circumstances in which she should contact provider prior to planned follow up, such as myalgias, hot flashes causing interference with ADLs. She has been provided written educational information regarding aromatase inhibitor therapy and lists of estrogenic herbs/supplements to avoid. I reviewed recommendations for calcium and vitamin Dsupplementation and the importance of weight bearing activity. A significant amount of time was allotted for questions. All the patient's concerns were addressed to her satisfaction and she is agreeable to proceed. 2. Bone density exam obtained 05/21/25 shows normal bone density- these results were reviewed with the patient. Advise she continue vitamin D calcium supplementand weight bearing exercise. I spent 55 minutes today reviewing labs, records and history. Time includes coordination of care and interpretation of tests. This also includes time that I spent with the patient for education, as well as documenting clinical information. Clinical Quality Measures Falls Risk Screening/Assistive Devices Have you fallen in the past year?: No 05/28/25 1514 <Electronically signed by Ayla carr NP CONTROL AREA OPERATOR-C> Date _ Ayla Ayoub NP, NP-C Cosigner Signature: Date (if applicable) CC: Dr. Aria Sanchez MD ~ [place] [facility] Work Phone: [phone]) 957-666608-21-2025 Progress [facility] [place] [address] OFFICE VISIT Date of Service: 05/16/25918 MR#: [id number] Acct: [id number] Name: BERRY ABAD Rep #: [id number] : 1945 From: Godwin maurice MD Age/Sex: 79/F Location: [facility] Status: Signed HPI Subjective Date of Service 05/16/25 Chief Complaint Left breast cancer History of Present Illness 79-year-old female past history of right breast cancer status postmastectomy no adjuvant treatment received (as per patient giving history, no records available). She presented in January 2025 following an abnormal screening mammogram and ultrasound and a biopsy proven invasive lobular carcinoma on March 06, 2025. April 10, 2025 left mastectomy with sentinel lymph node biopsy: MICROSCOPIC DIAGNOSIS A. Lymph nodes, sentinel, left, [...] - ER: positive (100%, strong intensity) - MT: negative - CCC8HCK: negative (score 0) - Biopsy site changes, focal organizing fat necrosis. SYNOPTIC REPORT FOR INVASIVE BREAST CARCINOMA Specimen (P=partial, M=mastectomy): M Laterality (R=right, L=left): L Focality (U=unifocal, M=multifocal): U Tumor size (cm): 0.9 cm Histologic type: invasive lobular Histologic grade: 2 Tubule score (1-3): 3 Nuclear score (1-3): 2 Mitotic score (1-3): 1 Skin, nipple epidermis, skeletal muscle (I=involved, N=negative, NA=not applicable): N Lymphovascular invasion (E=extensive, F=focal, N=not identified): N Margins of main specimen (P=positive, N=negative): N Distance to closest margin of main specimen (mm): 2.5 mm Designation of closest margin of main specimen: superior Designation of other margins of main specimen Re-resection margin status (P=positive, N=negative, NA=not applicable): NA DCIS (P=present, N=not identified): P Nuclear grade: low Comedo necrosis (P=present, N=not identified): N Extensive intraductal component (P=present, N=not identified): N Margins of main specimen (P=positive, N=negative): N Distance to closest margin of main specimen (mm): 4 mm Designation of closest margin of main specimen: superior Designation of other margins of main specimen Longest span Re-resection margin status (P=positive, N=negative, NA=not applicable): NA Regional lymph nodes: Total number of lymph nodes: 3 Number of sentinel lymph nodes: 3 Number with macrometastases: 0 Number with micrometastases: 0 Number with isolated tumor cells: 0 Size of largest lakshmi metastasis (mm): NA Size of extranodal extension (mm) (N=not identified): NA Estrogen receptor: positive (100%, strong intensity) Progesterone receptor: negative HER2 IHC: negative HER2 FISH: NA Specimen in which ER/MT/HER2 performed: [id number] pTNM: pT1b pN0 [facility] Medical History Wears hearing aid Wears [...] Hyperlipidemia Arthritis Essential (primary) hypertension Surgical History (Updated 05/16/25 @ 09:31 by Marla Glass) History of left mastectomy Hx of neck surgery History of breast reconstruction H/O section History of appendectomy History of mastectomy Family History (Updated 05/16/25 @ 09:29 by Marla Glass) Brother , age 49 Cancer lung Father Heart disease Mother Dementia Social History Smoking Status: Former smoker quit date: 09/26/04 pack-years: 40 Tobacco: How many years used: 40 how long ago did patient quit smokin years ago second hand exposure: Yes alcohol intake: current alcohol intake frequency: 0-2 drinks per day Alcohol type: wine ROS Constitutional Constitutional: Reports systems reviewed and no addt'l complaints, except as documented; Denies fatigue or weight loss Eyes Eyes: Reports systems reviewed and no addt'l complaints, except as documented ENT HEENT: Reports systems reviewed and no addt'l complaints, except as documented and hearing loss; Denies mouth lesions Cardiovascular Cardiovascular: Reports systems reviewed and no addt'l complaints, except as documented; Denies chest pain with activity or edema Respiratory/Chest Respiratory/Chest: Reports systems reviewed and no addt'l complaints, except as documented; Denies cough or dyspnea on exertion Gastrointestinal Gastrointestinal: Reports systems reviewed and no addt'l complaints, except as documented; Denies change in bowel habits Genitourinary Genitourinary: Reports systems reviewed and no addt'l complaints, except as documented Musculoskeletal Musculoskeletal: Reports systems reviewed and no addt'l complaints, except as documented; Denies back pain or joint pain Integumentary Integumentary: Reports systems reviewed and no addt'l complaints, except as documented; Denies new lesions Neurologic Neurologic: Reports systems reviewed and no addt'l complaints, except as documented; Denies focal weakness, headache(s) or paresthesias Psychiatric Psychiatric: Reports systems reviewed and no addt'l complaints, except as documented Endocrine Endocrinology: Reports systems reviewed and no addt'l complaints, except as documented Hematologic/Lymphatic Hematologic/Lymphatic: Reports systems reviewed and no addt'l complaints, exceptas documented Allergic/Immunologic Allergic/Immunologic: Reports systems reviewed and no addt'l complaints, except as documented Intake Vital Signs 04/18/25 10:51 05/16/25 08:29 05/16/25 09:21 05/16/25 09:32 Height 5 ft 4 in 5 ft 4 in 5 ft 4 in 5 ft 4 in Weight: 65.771 kg BMI 24.9 BP 127/79 H Blood Pressure Location Lt brachial Position Sitting Respiration 18 Pulse 58 L Pulse Source Monitor Temp 96.9 F L Temperature Source Temporal Artery Pulse Oximetry (%) 94 Oxygen Delivery Method room air Intake Is patient in pain?: No Allergies bupropion HCl (From Zyban) Allergy (Severe, Verified 05/16/25 09:25) Hives red dye Allergy (Mild, Verified 05/16/25 09:25) Itching bupropion (From Zyban) Allergy (Verified 05/16/25 09:25) Hives hydrocodone (From Vicodin) Adverse Reaction (Verified 05/16/25 09:25) N/V hydromorphone Adverse Reaction (Verified 05/16/25 09:25) constipation Medications ?Medication ?Instructions ?Recorded ?Confirmed ?Type yeaplijy-vues-kgti 8 mg-folic 400 1 ea PO DAILY SUPPLE MENT 05/27/16 05/16/25 History mcg-K 50 mcg-lutein 300 mcg tablet benzonatate 200 mg capsule 200 mg PO TID PRN cough #20 caps 03/16/18 05/16/25 Rx atorvastatin 40 mg tablet 40 mg PO QHS CHOLESTEROL #90 tabs 07/12/24 05/16/25 Rx famotidine-Ca carb-mag hydrox 10 1 tab PO DAILY PRN in digestion 07/12/24 05/16/25 History mg-800 mg-165 mg chewable tablet (Pepcid Complete) metoprolol succinate 25 mg 25 mg PO DAILY BP #90 tabs 07/12/24 05/16/25 Rx tablet,extended release 24 hr (Toprol XL) melatonin 10 mg capsule 20 mg PO HS PRN insomnia 08/2005/16/25 History levothyroxine 75 mcg tablet 75 mcg PO DAILY THYROID 05/16/25 History acetaminophen 325 mg tablet 650 mg (2 x 325 mg) PO Q6H PRN PRN 04/11/25 05/16/25 Rx Pain Score 1-10 #0 tabs docusate sodium 100 mg capsule 100 mg PO BID #10 caps 04/11/25 05/16/25 Rx (Colace) lactobacillus combination no.9 4 4,000 mmu cells PO QD AY 05/16/25 05/16/25 History billion cell capsule (Adult 50 Plus Probiotic) Have you fallen in the past year?: No Central Venous Access Central Venous Access: No Exam Physical Exam Narrative ECOG 0 Const alert, oriented x3 and no apparent distress General Appearance: cooperative, comfortable and well kempt HEENT Face and Sinus: normal facial exam General Ear: hearing grossly impaired Neck no lymphadenopathy and no JVD Resp clear to auscultation bilaterally Cardio regular rate and regular rhythm Jugular Venous Distention: Negative for JVD GI soft to palpation, non-tender and non-distended Back/Spine no thoracic nor lumbar tenderness Extremity no clubbing, cyanosis or edema Skin no rashes or lesions noted Neuro oriented x3, CN's II-XII intact bilaterally, moves all extremities, no focal motor deficits and no sensory deficits noted Coordination / Balance: noqzkc-bl-efkx test normal Speech: speech normal Gait (Neuro): normal gait Psych mental status grossly normal Coding Level of Care Code Off vis,new,level 5 Exam Problem Focused Diagnoses Invasive lobular carcinoma of breast in female C50.919 Assessment and Plan Assessment and Plan (1) Invasive lobular carcinoma of breast in female: Status: Acute Comment: Left Orders: Orders CBC W/Diff, Automated Today C50.911 - Malignant neoplasm of unspecified site ofright female breast,C50.919 - Malignant neoplasm of unspecified site of unspecified female breast Comprehensive Metabolic Profil Today C50.911 - Malignant neoplasm of unspecified site of right female breast, C50.919 - Malignant neoplasm of unspecified site of unspecified female breast DAVID Today C50.911 - Malignant neoplasm of unspecified site of right female breast, C50.919 - Malignant neoplasm of unspecified site of unspecified female breast Plan 79-year-old female with invasive lobular cancer of the left breast stage I (T1, N0, M0) ER positive(100% strong) MT negative and HER2 equivocal 2+ by IHC negative by FISH, overall grade 2. Patient is status post left mastectomy with sentinel lymph node biopsy March 2025. Past medical history notable for right breast cancer status postmastectomy no adjuvant treatment inher 30s. No other first-degree relatives with breast cancer. Chronic comorbid conditions dyslipidemia, hypertension, hearing loss. Recommendations: Based on NCCN guidelines and up-to-date review of treatment of early-stage invasive breast cancer with a curative intent: 1. Adjuvant hormonal therapy with an aromatase inhibitor for 5 years. 2. Schedule anticancer treatment teaching session. Main side effects (menopausal symptoms, musculoskeletal pains, dyslipidemia with consequent cardiovascular risks) discussed. 3. Request bone density, continue vitamin D calcium supplement, further bone supportive therapy depends on findings on bone density. 4. Genetic testing discussed, especially with bilateral breast cancer despite the negative family history. Patient consented for test Patient was seen with her , impression and recommendations discussed follow-up in 3 months. Godwin Lawrence MD Loading Machine Adjuster, [facility] Divisions of Medical Oncology & Hematology Department of Internal Medicine [place] [address] This note was generated using a voice recognition system software. Although itwas reviewed by the author prior to finalization, it may still contain incorrectwords, spelling, and punctuation that were not noted when reviewing prior to saving. If a clinically significant typo or inaccurately typed phrase is noted, please notify the author. Clinical Quality Measures Falls Risk Screening/Assistive Devices Have you fallen in the past year?: No 05/16/25 1027 rosa GARVEY> Date _ Godwin Lawrence [facility] Signature: Date (if applicable) CC: Dr. Aria Sanchez MD; Dr. Rufina Godinez MD ~ [facility] [id number] [facility] [address] [place] [address], [address] [place] [id number] OFFICE VISIT Date of Service: 05/16/25 MR#: [id number] Acct: [id number] Name: BERRY ABAD JOVANA Rep #: [id number] : 1945 Provider: Dr. Daniel Philip MD Age/Sex: 79/F [place] [facility] Status: Signed Intake Vital Signs 05/02/25 09:00 05/16/25 08:29 Height 5 ft 4 in 5 ft 4 in BP 128/83 H 107/71 Blood Pressure Location Rt brachial Lt brachial Position Sitting Sitting Respiration 18 16 Pulse 71 64 Temp 97.5 F L 98.3 F Temp Source Oral Temporal Pulse Oximetry (%) 92 94 Oxygen Delivery Method room air room air Intake Visit Reasons: 1 W FU Chief Complaint: post op mastectomy- fill Accompanied by: Is patient in pain?: No Allergies bupropion HCl (From Zyban) Allergy (Severe, Verified 05/16/25 08:30) Hives red dye Allergy (Mild, Verified 05/16/25 08:30) Itching bupropion (From Zyban) Allergy (Verified 05/16/25 08:30) Hives hydrocodone (From Vicodin) Adverse Reaction (Verified 05/16/25 08:30) N/V hydromorphone Adverse Reaction (Verified 05/16/25 08:30) constipation Medications ?Medication ?Instructions ?Recorded ?Confirmed ?Type kbncevcr-mrsk-tugg 8 mg-folic 400 1 ea PO DAILY SUPPLE MENT 05/27/16 05/16/25 History mcg-K 50 mcg-lutein 300 mcg tablet benzonatate 200 mg capsule 200 mg PO TID PRN cough #20 caps 03/16/18 05/16/25 Rx atorvastatin 40 mg tablet 40 mg PO QHS CHOLESTEROL #90 tabs 07/12/24 05/16/25 Rx famotidine-Ca carb-mag hydrox 10 1 tab PO DAILY PRN in digestion 07/12/24 05/16/25 History mg-800 mg-165 mg chewable tablet (Pepcid Complete) metoprolol succinate 25 mg 25 mg PO DAILY BP #90 tabs 07/12/24 05/16/25 Rx tablet,extended release 24 hr (Toprol XL) melatonin 10 mg capsule 20 mg PO HS PRN insomnia 08/2005/16/25 History levothyroxine 75 mcg tablet 75 mcg PO DAILY THYROID 05/16/25 History acetaminophen 325 mg tablet 650 mg (2 x 325 mg) PO Q6H PRN PRN 04/11/25 05/16/25 Rx Pain Score 1-10 #0 tabs docusate sodium 100 mg capsule 100 mg PO BID #10 caps 04/11/25 05/16/25 Rx (Colace) tramadol 50 mg tablet 50 mg PO Q8H PRN pain 3 days #10 04/11/25 05/16/25 Rx tabs Have you fallen in the past year?: No Subjective Details: No pain. Tolerating expansion Objective Details: Left breast incision c/d/i. No drainage or concerns of infection at this time. No redness or induration. 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 Coding Level of Care Code Global Post Op Diagnoses Status post mastectomy Z90.10 [facility] Medical History Wears hearing aid Wears [...] Plan (1) Status post mastectomy: Status: Acute Comment: TE placement left breast Plan: Left breast prepped with Chlorhexidine wash followed by alcohol swab. 100 cc of injectable saline injected into the structural metal fabricator apprentice (used magnet to localize). Band aid applied. 200 cc total. Patient tolerated well. Plan for expansion again next week 05/16/25 0804 > Date _ Giacomo Philip MD Cosigner Signature: Date (if applicable) CC: ~ [facility]08-21-2025 Progress note Author Godwin Lawrence [facility] Note Date/Time May 16, 2025 10 :27am [facility] [place] [address] OFFICE VISIT Date of Service: 05/16/25 0919 MR#: [id number] Acct: [id number] Name: BERRY ABAD JOVANA Rep #: [id number] : 1945 From: Godwin maurice MD Age/Sex: 79/F [place] [facility] Status: Signed HPI Subjective Date of Service 05/16/25 Chief Complaint Left breast cancer History of Present Illness 79-year-old female past history of right breast cancer status postmastectomy no adjuvant treatment received (as per patient giving history, no records available). She presented in January 2025 following an abnormal screening mammogram and ultrasound and a biopsy proven invasive lobular carcinoma on March 06, 2025. April 10, 2025 left mastectomy with sentinel lymph node biopsy: MICROSCOPIC DIAGNOSIS A. Lymph nodes, sentinel, left, [...] - ER: positive (100%, strong intensity) - MT: negative - WDC4MCM: negative (score 0) - Biopsy site changes, focal organizing fat necrosis. SYNOPTIC REPORT FOR INVASIVE BREAST CARCINOMA Specimen (P=partial, M=mastectomy): M Laterality (R=right, L=left): L Focality (U=unifocal, M=multifocal): U Tumor size (cm): 0.9 cm Histologic type: invasive lobular Histologic grade: 2 Tubule score (1-3): 3 Nuclear score (1-3): 2 Mitotic score (1-3): 1 Skin, nipple epidermis, skeletal muscle (I=involved, N=negative, NA=not applicable): N Lymphovascular invasion (E=extensive, F=focal, N=not identified): N Margins of main specimen (P=positive, N=negative): N Distance to closest margin of main specimen (mm): 2.5 mm Designation of closest margin of main specimen: superior Designation of other margins of main specimen </=1 mm: NA Re-resection margin status (P=positive, N=negative, NA=not applicable): NA DCIS (P=present, N=not identified): P Nuclear grade: low Comedo necrosis (P=present, N=not identified): N Extensive intraductal component (P=present, N=not identified): N Margins of main specimen (P=positive, N=negative): N Distance to closest margin of main specimen (mm): 4 mm Designation of closest margin of main specimen: superior Designation of other margins of main specimen </=2 mm: NA Longest span </= 2 mm to margin of main specimen (mm): NA Re-resection margin status (P=positive, N=negative, NA=not applicable): NA Regional lymph nodes: Total number of lymph nodes: 3 Number of sentinel lymph nodes: 3 Number with macrometastases: 0 Number with micrometastases: 0 Number with isolated tumor cells: 0 Size of largest lakshmi metastasis (mm): NA Size of extranodal extension (mm) (N=not identified): NA Estrogen receptor: positive (100%, strong intensity) Progesterone receptor: negative HER2 IHC: negative HER2 FISH: NA Specimen in which ER/MT/HER2 performed: [id number] pTNM: pT1b pN0 [facility] Medical History Wears hearing aid Wears [...] Hyperlipidemia Arthritis Essential (primary) hypertension Surgical History (Updated 05/16/25 @ 09:31 by Marla Glass) History of left mastectomy Hx of neck surgery History of breast reconstruction H/O section History of appendectomy History of mastectomy Family History (Updated 05/16/25 @ 09:29 by Marla Glass) Brother , age 49 Cancer lung Father Heart disease Mother Dementia Social History Smoking Status: Former smoker quit date: 09/26/04 pack-years: 40 Tobacco: How many years used: 40 how long ago did patient quit smokin years ago second hand exposure: Yes alcohol intake: current alcohol intake frequency: 0-2 drinks per day Alcohol type: wine ROS Constitutional Constitutional: Reports systems reviewed and no addt'l complaints, except as documented; Denies fatigue or weight loss Eyes Eyes: Reports systems reviewed and no addt'l complaints, except as documented ENT HEENT: Reports systems reviewed and no addt'l complaints, except as documented and hearing loss; Denies mouth lesions Cardiovascular Cardiovascular: Reports systems reviewed and no addt'l complaints, except as documented; Denies chest pain with activity or edema Respiratory/Chest Respiratory/Chest: Reports systems reviewed and no addt'l complaints, except as documented; Denies cough or dyspnea on exertion Gastrointestinal Gastrointestinal: Reports systems reviewed and no addt'l complaints, except as documented; Denies change in bowel habits Genitourinary Genitourinary: Reports systems reviewed and no addt'l complaints, except as documented Musculoskeletal Musculoskeletal: Reports systems reviewed and no addt'l complaints, except as documented; Denies back pain or joint pain Integumentary Integumentary: Reports systems reviewed and no addt'l complaints, except as documented; Denies new lesions Neurologic Neurologic: Reports systems reviewed and no addt'l complaints, except as documented; Denies focal weakness, headache(s) or paresthesias Psychiatric Psychiatric: Reports systems reviewed and no addt'l complaints, except as documented Endocrine Endocrinology: Reports systems reviewed and no addt'l complaints, except as documented Hematologic/Lymphatic Hematologic/Lymphatic: Reports systems reviewed and no addt'l complaints, exceptas documented Allergic/Immunologic Allergic/Immunologic: Reports systems reviewed and no addt'l complaints, except as documented Intake Vital Signs 04/18/25 10:51 05/16/25 08:29 05/16/25 09:21 05/16/25 09:32 Height 5 ft 4 in 5 ft 4 in 5 ft 4 in 5 ft 4 in Weight: 65.771 kg BMI 24.9 BP 127/79 H Blood Pressure Location Lt brachial Position Sitting Respiration 18 Pulse 58 L Pulse Source Monitor Temp 96.9 F L Temperature Source Temporal Artery Pulse Oximetry (%) 94 Oxygen Delivery Method room air Intake Is patient in pain?: No Allergies bupropion HCl (From Zyban) Allergy (Severe, Verified 05/16/25 09:25) Hives red dye Allergy (Mild, Verified 05/16/25 09:25) Itching bupropion (From Zyban) Allergy (Verified 05/16/25 09:25) Hives hydrocodone (From Vicodin) Adverse Reaction (Verified 05/16/25 09:25) N/V hydromorphone Adverse Reaction (Verified 05/16/25 09:25) constipation Medications ?Medication ?Instructions ?Recorded ?Confirmed ?Type ymijkirg-gqcz-ryhb 8 mg-folic 400 1 ea PO DAILY SUPPLE MENT 05/27/16 05/16/25 History mcg-K 50 mcg-lutein 300 mcg tablet benzonatate 200 mg capsule 200 mg PO TID PRN cough #20 caps 03/16/18 05/16/25 Rx atorvastatin 40 mg tablet 40 mg PO QHS CHOLESTEROL #90 tabs 07/12/24 05/16/25 Rx famotidine-Ca carb-mag hydrox 10 1 tab PO DAILY PRN in digestion 07/12/24 05/16/25 History mg-800 mg-165 mg chewable tablet (Pepcid Complete) metoprolol succinate 25 mg 25 mg PO DAILY BP #90 tabs 07/12/24 05/16/25 Rx tablet,extended release 24 hr (Toprol XL) melatonin 10 mg capsule 20 mg PO HS PRN insomnia 08/2005/16/25 History levothyroxine 75 mcg tablet 75 mcg PO DAILY THYROID 05/16/25 History acetaminophen 325 mg tablet 650 mg (2 x 325 mg) PO Q6H PRN PRN 04/11/25 05/16/25 Rx Pain Score 1-10 #0 tabs docusate sodium 100 mg capsule 100 mg PO BID #10 caps 04/11/25 05/16/25 Rx (Colace) lactobacillus combination no.9 4 4,000 mmu cells PO QD AY 05/16/25 05/16/25 History billion cell capsule (Adult 50 Plus Probiotic) Have you fallen in the past year?: No Central Venous Access Central Venous Access: No Exam Physical Exam Narrative ECOG 0 Const alert, oriented x3 and no apparent distress General Appearance: cooperative, comfortable and well kempt HEENT Face and Sinus: normal facial exam General Ear: hearing grossly impaired Neck no lymphadenopathy and no JVD Resp clear to auscultation bilaterally Cardio regular rate and regular rhythm Jugular Venous Distention: Negative for JVD GI soft to palpation, non-tender and non-distended Back/Spine no thoracic nor lumbar tenderness Extremity no clubbing, cyanosis or edema Skin no rashes or lesions noted Neuro oriented x3, CN's II-XII intact bilaterally, moves all extremities, no focal motor deficits and no sensory deficits noted Coordination / Balance: tyxqpl-hp-lonj test normal Speech: speech normal Gait (Neuro): normal gait Psych mental status grossly normal Coding Level of Care Code Off vis,new,level 5 Exam Problem Focused Diagnoses Invasive lobular carcinoma of breast in female C50.919 Assessment and Plan Assessment and Plan (1) Invasive lobular carcinoma of breast in female: Status: Acute Comment: Left Orders: Orders CBC W/Diff, Automated Today C50.911 - Malignant neoplasm of unspecified site ofright female breast, C50.919 - Malignant neoplasm of unspecified site of unspecified female breast Comprehensive Metabolic Profil Today C50.911 - Malignant neoplasm of unspecified site of right female breast, C50.919 - Malignant neoplasm of unspecified site of unspecified female breast DAVID Today C50.911 - Malignant neoplasm of unspecified site of right female breast, C50.919 - Malignant neoplasm of unspecified site of unspecified female breast Plan 79-year-old female with invasive lobular cancer of the left breast stage I (T1, N0, M0) ER positive (100% strong) MT negative and HER2 equivocal 2+ by IHC negative by FISH, overall grade 2. Patient is status post left mastectomy with sentinel lymph node biopsy March 2025. Past medical history notable for right breast cancer status postmastectomy no adjuvant treatment in her 30s. No other first-degree relatives with breast cancer. Chronic comorbid conditions dyslipidemia, hypertension, hearing loss. Recommendations: Based on NCCN guidelines and up-to-date review of treatment of early-stage invasive breast cancer with a curative intent: 1. Adjuvant hormonal therapy with an aromatase inhibitor for 5 years. 2. Schedule anticancer treatment teaching session. Main side effects (menopausal symptoms, musculoskeletal pains, dyslipidemia with consequent cardiovascular risks) discussed. 3. Request bone density, continue vitamin D calcium supplement, further bone supportive therapy depends on findings on bone density. 4. Genetic testing discussed, especially with bilateral breast cancer despite the negative family history. Patient consented for test Patient was seen with her , impression and recommendations discussed follow-up in 3 months. Godwin Lawrence MD Loading Machine Adjuster, [facility] Divisions of Medical Oncology & Hematology Department of Internal Medicine [place] [address] This note was generated using a voice recognition system software. Although itwas reviewed by the author prior to finalization, it may still contain incorrectwords, spelling, and punctuation that were not noted when reviewing prior to saving. If a clinically significant typo or inaccurately typed phrase is noted, please notify the author. Clinical Quality Measures Falls Risk Screening/Assistive Devices Have you fallen in the past year?: No 05/16/25 1027 <Electronically signed by Godwin lee MD> Date _ Godwin Lawrence MD Cosigner Signature: Date (if applicable) CC: Dr. Aria Sanchez MD; Dr. Rufina Godinez MD ~ [facility] Work Phone: 1(601) 684-881708-21-2025 Progress note Author Giacomo Philip [facility] Services Note Date/Time May 16, 2025 8: 50am [facility] [address] [place] [address], [address] [place] [address] OFFICE VISIT Date of Service: 05/16/25 MR#: [id number] Acct: [id number] Name: BERRY ABAD Rep #: [id number] : 1945 Provider: Dr. Daniel Philip MD Age/Sex: 79/F Location[facility] Status: Signed Intake Vital Signs 05/02/25 09:00 05/16/25 08:29 Height 5 ft 4 in 5 ft 4 in BP 128/83 H 107/71 Blood Pressure Location Rt brachial Lt brachial Position Sitting Sitting Respiration 18 16 Pulse 71 64 Temp 97.5 F L 98.3 F Temp Source Oral Temporal Pulse Oximetry (%) 92 94 Oxygen Delivery Method room air room air Intake Visit Reasons: 1 W FU Chief Complaint: post op mastectomy- fill Accompanied by: Is patient in pain?: No Allergies bupropion HCl (From Zyban) Allergy (Severe, Verified 05/16/25 08:30) Hives red dye Allergy (Mild, Verified 05/16/25 08:30) Itching bupropion (From Zyban) Allergy (Verified 05/16/25 08:30) Hives hydrocodone (From Vicodin) Adverse Reaction (Verified 05/16/25 08:30) N/V hydromorphone Adverse Reaction (Verified 05/16/25 08:30) constipation Medications ?Medication ?Instructions ?Recorded ?Confirmed ?Type bsbvdahe-kbrq-cvbu 8 mg-folic 400 1 ea PO DAILY SUPPLE MENT 05/27/16 05/16/25 History mcg-K 50 mcg-lutein 300 mcg tablet benzonatate 200 mg capsule 200 mg PO TID PRN cough #20 caps 03/16/18 05/16/25 Rx atorvastatin 40 mg tablet 40 mg PO QHS CHOLESTEROL #90 tabs 07/12/24 05/16/25 Rx famotidine-Ca carb-mag hydrox 10 1 tab PO DAILY PRN in digestion 07/12/24 05/16/25 History mg-800 mg-165 mg chewable tablet (Pepcid Complete) metoprolol succinate 25 mg 25 mg PO DAILY BP #90 tabs 07/12/24 05/16/25 Rx tablet,extended release 24 hr (Toprol XL) melatonin 10 mg capsule 20 mg PO HS PRN insomnia 08/2005/16/25 History levothyroxine 75 mcg tablet 75 mcg PO DAILY THYROID 05/16/25 History acetaminophen 325 mg tablet 650 mg (2 x 325 mg) PO Q6H PRN PRN 04/11/25 05/16/25 Rx Pain Score 1-10 #0 tabs docusate sodium 100 mg capsule 100 mg PO BID #10 caps 04/11/25 05/16/25 Rx (Colace) tramadol 50 mg tablet 50 mg PO Q8H PRN pain 3 days #10 04/11/25 05/16/25 Rx tabs Have you fallen in the past year?: No Subjective Details: No pain. Tolerating expansion Objective Details: Left breast incision c/d/i. No drainage or concerns of infection at this time. No redness or induration. 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 Coding Level of Care Code Global Post Op Diagnoses Status post mastectomy Z90.10 [facility] Medical History Wears hearing aid Wears [...] Plan (1) Status post mastectomy: Status: Acute Comment: TE placement left breast Plan: Left breast prepped with Chlorhexidine wash followed by alcohol swab. 100 cc of injectable saline injected into the structural metal fabricator apprentice (used magnet to localize). Band aid applied. 200 cc total. Patient tolerated well. Plan for expansion again next week 05/16/25 0850 <Electronically signed by Giacomo Philip MD> Date _ Giacomo Philip MD Cosigner Signature: Date (if applicable) CC: ~ [facility] Work Phone: 1(653) 488-356607-17-2025 Discharge summary Author Yajaira Landrum [facility] Note Date/Time April 11, 2025 2:56 pm [facility] System Medical Records Department [address] [place] [address] Instructions for Home/Discharge Instructions 04/11/25 0721 MR#: [id number] Acct: [id number] Name: BERRY ABAD JOVANA Rep #:[id number] : 1945 79 From: Yajaira COOK PA-C PCP: Dr. Aria Sanchez MD Status:REG IAC Discharge Instructions DC O2, CPAP, BIPAP needs [...] at 2:30 pm. Contact our office at [phone], option #4 for a nurse Test Results: [...] Instructions Additional Instructions / Restrictions: Breast tissue structural metal fabricator apprentice placement Instructions for My Care at Home [...] document)? At your earliest convenience, please call [phone] to confirm/schedule a follow-up appointment with me [...] or if you have any questions, call [phone] Drain Care:? A drain has been placed [...] when the drainage fills the bulb almost residential. Please keep daily amounts of drainage separate [...] 20 mg PO HS PRN (Reason: insomnia) nfsfusjf-myj-gflb-FA-vit K-lut 1 EACH tablet 1 ea PO [...] Order can be placed): Home, Self Care 04/11/25722<Electronically signed by Yajaira COOK PA-C>Yajaira COOK PA-C [...] change the date. Our office number is [phone], option #2 to schedule/change an appointment or [...] prior to discontinuation of her oxygen. 04/11/25 1455<Electronically signed by Yajaira COOK PA-C>Yajaira Landrum PA-C cc: Dr. Aria Sanchez MD; Dr. Giacomo Philip MD ~* Signed [facility] Work Phone: 1(896) 839-529207-17-2025 Progress note Author Yajaira Landrum [facility] Note Date/Time April 11, 2025 2:55 pm [facility] Medical Records Department [address] [place] [address] Progress Note - Surgery 04/11/25 0642 MR#: [id number] Acct: [id number] Name: BERRY ABAD Rep #:[id number] : 1945 79 From: Yajaira COOK PAAvniC PCP: Dr. Aria Sanchez MD Status:REG [facility] Location: PA3 [id number] Subjective Subjective Patient evaluated resting comfortably in [...] 73.3 H, Lymph % (Auto) 18.0 L, [place] % (Auto) 7.3, Eos % (Auto) 0.8, Baso % (Auto) 0.3, Absolute Neuts (auto) 5.4, Absolute Lymphs (auto) 1.33, Nucleated RBC % 0 Radiography Diagnostic Testing: Radiology Impression [place] Node 04/10/25 08:05 IMPRESSION: Successful injection of 555 uCi of Tilmanocept injected subdermally for sentinelnode imaging. Reading Location: [facility] Physical Exam Chest Chest Narrative: Left [...] later today Charges/Coding Visit Charges Inpatient E&M: 54793 Subs Hosp L1 (post-op; no charge) 04/11/25 0717 <Electronically signed by Yajaira COOK PA-C> Cosigner [...] Cosigner Signature (if applicable): cc: ~* Signed [facility] Work Phone: 1(711) 792-451107-17-2025 Discharge summary [facility] System Medical Records Department [address] [place] [address] Instructions for Home/Discharge Instructions 04/11/25 0721 MR#: [id number] Acct: [id number] Name: BERRY ABAD Rep #:[id number] : [...] at 2:30 pm. Contact our office at [phone], option #4 for a nurse Test Results: [...] Instructions Additional Instructions / Restrictions: Breast tissue structural metal fabricator apprentice placement Instructions for My Care at Home [...] document)? At your earliest convenience, please call [phone] to confirm/schedule a follow-up appointment with me [...] or if you have any questions, call [phone] Drain Care:? A drain has been placed [...] when the drainage fills the bulb almost residential. Please keep daily amounts of drainage separate for each drain for l60-zjgi period (for example drain #1 put out [...] 20 mg PO HS PRN (Reason: insomnia) jxtrgele-igh-owae-FA-vit K-lut 1 EACH tablet 1 ea PO [...] can be placed): Home, Self Care 04/11/25 0723Amanda Diallo COOK PA-C CC: Dr. Aria Sanchez MD; Dr. Giacomo Philip MD ~ Signed ADDENDUM by BERTIN Landrum on 04/11/[address] Godinez's appointment changed to follow-up in 2 weeks on April 24 at 1:30 pm. Please contact our office to reschedule if you are unable to attend this appointment or need to change the date. Our office number is [phone], option #2 to schedule/change an appointment or [...] MD; Dr. Giacomo Philip MD ~* Signed [facility]07-17-2025 Progress note [facility] Medical Records Department [address] [place] [address] Progress Note - Surgery 04/11/25 0642 MR#: [id number] Acct: [id number] Name: BERRY ABAD JOVANA Rep #:[id number] : 1945 79 From: Yajaira COOK PA-C PCP: Dr. Aria Sanchez MD Status:[facility] Location: PA3 [id number] Subjective Subjective Patient evaluated resting comfortably in [...] 73.3 H, Lymph % (Auto) 18.0 L, [place] % (Auto) 7.3, Eos % (Auto) 0.8, Baso % (Auto) 0.3, Absolute Neuts (auto) 5.4, Absolute Lymphs (auto) 1.33, Nucleated RBC % 0 Radiography Diagnostic Testing: Radiology Impression Burgaw Node 04/10/25 08:05 IMPRESSION: Successful injection of 555 uCi of Tilmanocept injected subdermally for sentinelnode imaging. Reading Location: [facility] Physical Exam Chest Chest Narrative: Left [...] later today Charges/Coding Visit Charges Inpatient E&M: 06165 Subs Hosp L1 (post-op; no charge) 04/11/25716 Cosigner Signature (if applicable): CC: ~ Signed [...] evaluated prior to discontinuation of her oxygen. 04/11/251453 Cosigner Signature (if applicable): cc: ~* Signed [facility]07-17-2025 Progress note [facility] Note Date/Time April 11, 2025 6:50 am [facility] System Medical Records Department [address] [place] [address] Progress Note - Surgery 04/11/25 0647 MR#: [id number] Acct: [id number] Name: BERRY ABAD JOVANA Rep #:[id number] : 1945 79 From: Giacomo Philip MD PCP: Dr. Aria Sanchez MD Status:ADM GORDY Location: [place] [address] Subjective Subjective Pain controlled. Desaturation overnight while [...] 73.3 H, Lymph % (Auto) 18.0 L, [place] % (Auto) 7.3, Eos % (Auto) 0.8, Baso % (Auto) 0.3, Absolute Neuts (auto) 5.4, Absolute Lymphs (auto) 1.33, Nucleated RBC % 0 Radiography Diagnostic Testing: Radiology Impression Burgaw Node 04/10/25 08:05 IMPRESSION: Successful injection of 555 uCi of Tilmanocept injected subdermally for sentinelnode imaging. Reading Location: [facility] Physical Exam Narrative CHEST: LEFT: No bleeding, [...] weeks of Keflex) Charges/Coding Procedures Integumentary 111xxx-113xx: 41005 Global Visit 04/11/25 0650 <Electronically signed by Giacomo Philip MD> Cosigner Signature (if applicable): CC: ~ Signed [facility] Work Phone: 1(231) 739-312907-17-2025 Progress note [facility] Medical Records Department [address] [place] [address] Progress Note - Surgery 04/11/25 0647 MR#: [id number] Acct: [id number] Name: BERRY ABAD Rep #:[id number] : 1945 79 From: Giacomo Philip MD PCP: Dr. Aria Sanchez MD Status:ADM GORDY Location: MS3 [id number] Subjective Subjective Pain controlled. Desaturation overnight while [...] 73.3 H, Lymph % (Auto) 18.0 L, [place] % (Auto) 7.3, Eos % (Auto) 0.8, Baso % (Auto) 0.3, Absolute Neuts (auto) 5.4, Absolute Lymphs (auto) 1.33, Nucleated RBC % 0 Radiography Diagnostic Testing: Radiology Impression Burgaw Node 04/10/25 08:05 IMPRESSION: Successful injection of 555 uCi of Tilmanocept injected subdermally for sentinelnode imaging. Reading Location: [facility] Physical Exam Narrative CHEST: LEFT: No bleeding, [...] weeks of Keflex) Charges/Coding Procedures Integumentary 111xxx-113xx: 43810 Global Visit 04/11/25 0650 Cosigner Signature (if applicable): CC: ~ Signed [facility]07-16-2025 Consult note Author Rafitadonis Rios [facility] Note Date/Time April 10, 2025 4:[address] [facility] Medical Records Department [address] [place] [address] Anesthesia Postop Eval II 04/10/25 1604 MR#: [id number] Acct: [id number] Name: BERRY ABAD JOVANA Rep #:[id number] : 1945 79 From: Rafita Rios MD PCP: Dr. Aria Sanchez MD Status:ADM GORDY Y Race: C Location: [facility] [id number] -1 Anesthesia Postop Eval I Sum Postop Eval Completion status Anesthesia document: Postop Eval 1 completed: Yes Anesthesia Postop Eval I Summary Anesthesia Postop Eval I Summary: Anesthesia Postop Eval I: Assessment Summary Airway patent Yes 04/10/25 13:59 PROPERTY CONSULTANT.JDEF Spontaneous unlabored Yes 04/10/25 13:59 PROPERTY CONSULTANT.JDEF respirations Mental status Awake,Calm 04/10/25 13:59 PROPERTY CONSULTANT.JDEF nausea No 04/10/25 13:59 PROPERTY CONSULTANT.JDEF Vomiting No 04/10/25 13:59 PROPERTY CONSULTANT.JDEF Anesthesia Postop Eval I: Fluid Summary Crystalloid volume administer 1,200 04/10/25 13:59 PROPERTY CONSULTANT.JDEF (ml) Colloids volume administered ( ml) Blood Product volume administered (ml) Total IV fluid infused 1,200 04/10/25 13:59 PROPERTY CONSULTANT.JDEF Anesthesia Postop Eval I: Summary Notes Anesthesia Complication No 04/10/25 13:59 PROPERTY CONSULTANT.JDEF Anesthesia Complication Comment: Post-operative progress note Anesthesia: Postop Eval II Evaluation Mental status: Awake and Calm Pain Level: 3 nausea: No Vomiting: No Complications Anesthesia Complication: No 04/10/25 1604 <Electronically signed by Rafita Orourke D> Date _ Rafita Rios MD Cosigner Signature: Date CC: ~ Signed [facility] Work Phone: 1(381) 475-518907-16-2025 Procedure note [facility] Medical Records Department [address] [place] [address] Operative Report 04/10/25 1627 MR#: [id number] Acct: [id number] Name: BERRY ABAD JOVANA Rep #:[id number] : 1945 79 From: Giacomo Philip MD PCP: Dr. Aria Sanchez MD Status:ADM GORDY Location: [place] [address] Operative Report (Standard) Operative Information Date of Procedure: 04/10/25 Pre-Operative Diagnosis: Left breast cancer Post-Operative Diagnosis: Same Surgery/Procedure Performed: 1) Intraoperative assessment of mastectomy flaps with SPY (CPT: 97660) 2) Prepectoral placement of left breast tissue structural metal fabricator apprentice with acellular dermal matrix (CPT: 50932) 3) Use of acellular dermal matrix (Flex HD) to reinforce/stabilize tissue structural metal fabricator apprentice in the breast pocket (CPT: 65851) hall tender: Yes Marine Steamfitter: Damion Soler Tasks completed by certified first assistant: Retracting Type of Anesthesia: General RN [...] Drains (2 drains) Drain details: one 19 Israeli and one 15 Israeli Miguel A drain tunneled out medially and laterally , Tissue (Acellular dermal matrix) Tissue details: Flex HD pliable PRE-L-21 x 24 cm, expiration 01/01/2028, serial #[id number], products code [id number] and Implanted device (Tissue structural metal fabricator apprentice) Implanted device details: [place] CPX 4+ smooth medium height, 13.5 cm base width, 550 cc (inflated with 150 cc of air). Lot [id number], serial #[id number], expirationdate June. Estimated Blood Loss: 20 cc Specimen collected: No Description of surgery: Indications: Patient is a delightful 79-year-old female with left breast cancer here for skinsparing mastectomy.Discussed risks, benefits, and alternatives, to reconstruction and she elected to proceed with reconstruction using ADM and tissue structural metal fabricator apprentice. Procedure details: Patient was correctly identified in [...] then turned to reconstruction with a tissue structural metal fabricator apprentice. The tissue structural metal fabricator apprentice was wrappedwith the above-noted ADM circumferentially (edges of the ADM were sutured together with 3-0 Vicryl suture) and washed with Irrisept. The breast cavity was then irrigated again and washed with Irrisept. With new gloves the tissue structural metal fabricator apprentice and ADM were placed in the left breast pocket in the prepectoral plane. The medial 9:00 and inferior 6:00 suture tabs were then sutured to the chest wall with 2-0 PDS. We are happy with the placement at thispoint. The tissue structural metal fabricator apprentice was further reinforced withsuturing the ADM medially to the chest with interrupted PDS sutures in a 12:00 suture with an interrupted PDS suture to stabilize the tissue structural metal fabricator apprentice and ADM in place. Two drains were then placed, one 15 Israeli drain medially and one 19 Israeli drain laterally. 3-0 Vicryl deep sutures were [...] VTE Documentation VTE Mechan Device Prophylaxis: SCD's 04/10/25 4713 Cosigner Signature (if applicable): CC: Dr. Aria Sanchez MD; Dr. Giacomo Philip MD; Dr. Rufina Godinez MD~ Signed [facility]07-16-2025 Consult note [facility] Medical Records Department [address] [place] [address] Anesthesia Postop Eval II 04/10/25 1604 MR#: [id number] Acct: [id number] Name: BERRY ABAD JOVANA Rep #:[id number] : 1945 79 From: Rafita Rios MD PCP: Dr. Aria Sanchez MD Status:ADM GORDY Y Race: C Location: [facility] MS319 -1 Anesthesia Postop Eval I Sum Postop Eval Completion status Anesthesia document: Postop Eval 1 completed: Yes Anesthesia Postop Eval I Summary Anesthesia Postop Eval I Summary: Anesthesia Postop Eval I: Assessment Summary Airway patent Yes 04/10/25 13:59 PROPERTY CONSULTANT.JDEF Spontaneous unlabored Yes 04/10/25 13:59 PROPERTY CONSULTANT.JDEF respirations Mental status Awake,Calm 04/10/25 13:59 PROPERTY CONSULTANT.JDEF nausea No 04/10/25 13:59 PROPERTY CONSULTANT.JDEF Vomiting No 04/10/25 13:59 PROPERTY CONSULTANT.JDEF Anesthesia Postop Eval I: Fluid Summary Crystalloid volume administer 1,200 04/10/25 13:59 PROPERTY CONSULTANT.JDEF (ml) Colloids volume administered ( ml) Blood Product volume administered (ml) Total IV fluid infused 1,200 04/10/25 13:59 PROPERTY CONSULTANT.JDEF Anesthesia Postop Eval I: Summary Notes Anesthesia Complication No 04/10/25 13:59 PROPERTY CONSULTANT.JDEF Anesthesia Complication Comment: Post-operative progress note Anesthesia: Postop Eval II Evaluation Mental status: Awake and Calm Pain Level: 3 nausea: No Vomiting: No Complications Anesthesia Complication: No 04/10/25 1604 D> Date _ Rafita Rios MD Cosigner Signature: Date CC: ~ Signed [facility]07-16-2025 Consult note Author Aranza Cabrera [facility] Note Date/Time April 10, 2025 1:[address] [facility] Medical Records Department [address] [place] [address] Anesthesia Postop Eval I 04/10/25 1358 MR#: [id number] Acct: [id number] Name: BERRY ABAD Rep #:[id number] : 1945 79 From: Aranza Cabrera CRNA PCP: Dr. Aria Sanchez MD Status:ADM GORDY Y Race: C Location: [place] [address]259 -1 Anesthesia: Postop Eval I Current Vital Signs [...] Aranza weinstein CRNA> Date _ Aranza Cabrera CRNA Cosigner Signature: Date CC: ~ Signed [facility] Work Phone: 1(813) 435-281207-16-2025 Procedure note [facility] Medical Records Department [address] [place] [address] Operative Report 04/10/25 1142 MR#: [id number] Acct: [id number] Name: BERRY ABAD Rep #:[id number] : 1945 79 From: Rufina Godinez MD PCP: Dr. Aria Sanchez MD Status:ADM GORDY [facility] On[facility]: Sorin Requirements . Oncology surgical intervention performed: [place] Node Biopsy for Breast Cancerperformed Burgaw Node Bx - Breast Cancer: Synoptic Portion: [...] lymph node biopsy Lymphoseek and methylene blue hall tender: Yes Marine Steamfitter: Damion Soler Tasks completed by certified first assistant: Opening & closing and Retracting Type [...] the reminder of the procedure. Surgical Findings: Burgaw lymph node frozen showed some atypical cells unable to delineate further on frozen Complications Complications: No 04/10/25 8476 Cosigner Signature (if applicable): CC: Dr. Aria Sanchez MD; Dr. Giacomo Philip MD; Dr. Rufina Godinez MD~ Signed [facility]07-16-2025 Consult note [facility] Medical Records Department [address] [place] [address] Anesthesia Postop Eval I 04/10/25 1358 MR#: [id number] Acct: [id number] Name: BERRY ABAD JOVANA Rep #:[id number] : 1945 79 From: Aranza Cabrera PROPERTY CONSULTANT PCP: Dr. Aria Sanchez MD Status:ADM GORDY Y Race: C Location: [place] [address] Anesthesia: Postop Eval I Current Vital Signs [...] Eval 1 completed: Yes 04/10/[address] PROPERTY CONSULTANT> Date _ Aranza Cabrera PROPERTY CONSULTANT Cosigner Signature: Date CC: ~ Signed [facility]07-16-2025 Consult note Author Rafitadonis Rios [facility] Note Date/Time April 10, 2025 8:[address] [facility] Medical Records Department [address] [place] [address] Pre-Anesthesia Evaluation 04/10/25 0847 MR#: [id number] Acct: [id number] Name: BERRY ABAD JOVANA Rep #:[id number] : 1945 79 From: Rafita Rios MD PCP: Dr. 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 Anesthesia History Anesthesia History - director channel: Anesthesia History - director channel Hx Hospitalization Yes: 02/2024 FALL 03/27/25 14:44 [...] take am of surgery PONV PONV - director channel: PONV - director channel Female Yes 03/27/25 14:44 HX of Motion [...] 04/10/25 07:33 Respiratory Assessment Respiratory Assessment - director channel: Respiratory Tract Infection Hx - director channel Hx Respiratory Tract Infection No 03/27/25 14:44 STOP Sleep Apnea STOP Sleep Apnea - director channel: STOP Sleep Apnea - director channel Hx Hypertension Yes: CONTROLLED ON MED 03/27/25 [...] Tobacco Use History Tobacco Use History - director channel: Tobacco Use History - director channel Tobacco Use Smoking Status Former smoker 03/27/25 14:44 Hx Tobacco Use No 03/27/25 14:44 Years Smoking Packs Smoked per Day Smoking Cessation Date was No - quit smoking greater 03/27/25 14:44 within the last 15 years than 15 years ago Hx Smoking Cessation Date Hx Smoking Cessation No 03/27/25 14:44 Counseling Hematologic Medial History Hematologic Hx - director channel: 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 Hx of Blood Transfusion No 03/27/25 14:44 [...] confused, unrespo /Reproduction History /Reproductive History - director channel: /Reproductive Hx- director channel Hx Now No 03/27/25 14:44 Gestational Age [...] Medications ?Medication ?Instructions ?Recorded ?Last Taken ?Type gpggwltl-lmsv-zhwe 8 mg-folic 400 1 ea PO DAILY [...] Status Date / Time bupropion HCl (From [employer]) Allergy Severe Hives Verified 04/10/25 07:26 red [...] MD Cosigner Signature: Date CC: ~ Signed [facility] Work Phone: 1(909) 929-324207-16-2025 History and physical note Author Rufina Godinez [facility] Note Date/Time April 10, 2025 8:41 am [facility] Medical Records Department [facility] [place] [address] History & Physical Exam 04/10/25 0841 MR#: [id number] Acct: [id number] Name: BERRY ABAD JOVANA Rep #:[id number] : 1945 79 From: Rufina Godinez MD PCP: Dr. Aria Sanchez MD Status:[facility] Location: [place] [address] History and Physical Date of Admission: 04/10/25 Date of Service: 03/22/25 MR#: [id number] Acct: [id number] Name: BERRY ABAD JOVANA Rep #: [id number] : 1945 Provider: Dr. Rufina Godinez MD Age/Sex: 79/F Location: [facility] Status: Signed Intake Vital Signs 03/15/2509:19 03/18/2511:00 [...] constipation Medications ?Medication ?Instructions ?Recorded ?Confirmed ?Type ktihdrxe-lthl-efrj 8 mg-folic 400 1 ea PO DAILY [...] reconstruction. Patient and markers were ER positive MT negative, HER2 equivocal FISH pending. Patient is [...] cooperative, healthy appearing and no acute distress [facility] Head: normal to inspection Chest Other: Breast [...] no further questions. Rufina Godinez M.D. Pager: [phone] [facility] [address] [place] [address], [address] [place] [address] Office: [phone] Coding Level of Care Code Off vis,est,level [...] MD; Dr. Rufina Godinez MD ~* Signed [facility] Work Phone: 1(179) 138-858607-16-2025 History and physical note Author [facility] Note Date/Time April 10, 2025 7:26 am [facility] Medical Records Department [address] [place] [address] H&P Exam - Surgical 04/10/2517 MR#: [id number] Acct: [id number] Name: BERRY ABAD JOVANA Rep #:[id number] : 1945 79 From: Giacomo Philip MD PCP: Dr. Aria Sanchez MD Status:[facility] Location: [place] [address] HPI - General HPI Narrative HPI from [...] Patient would like to have the tissue structural metal fabricator apprentice placed above the muscle after ourdiscussion. The surgical plan includes the possibility of using a tissue structural metal fabricator apprentice initially,with the option to delay implant placement if the surgical site does not appear optimal post-mastectomy. The patient is informed about the potential need for multiple procedures, including the use of FlexHD to stabilize the implant and the process of expanding the tissue structural metal fabricator apprentice with air initially, followed by fluid Current Encounter (DATE OF SURGERY H&P UPDATE): I saw and examined the patient this morning in pre-operative holding. We discussed risks and benefits of today's surgery and they would like to proceed. NO CHANGE in health history since last seen and evaluated. Ready to proceed with surgery. [facility] Medical History Wears hearing aid Wears [...] Medications ?Medication ?Instructions ?Recorded ?Last Taken ?Type jjabomng-cvdp-ueer 8 mg-folic 400 1 ea PO DAILY [...] candidate for implant-based breast reconstruction with tissue structural metal fabricator apprentice followed by exchange for silicone implant (patient desires silicone asshe has a silicone on the other side) and possible use of acellular dermal matrix, use of acellular dermal matrix (ADM) is used as an off-label device and can potentially increase postoperative complications (discussed infection, seroma, failure to incorporate, and other ADM complications). Furthermore we discussed subpectoral placement of the tissue structural metal fabricator apprentice to match the contralateral breast, but patient wants above muscle for pain considerations. Will plan for prepectoral. I talked her about multistage surgery with exchange of the tissue structural metal fabricator apprentice once it is at the appropriate size [...] the insurance company as necessary. The tissue structural metal fabricator apprentice will initially be filled with air, followed [...] reconstruction (skin sparing mastectomy followed by tissue structural metal fabricator apprentice placement, but PREPECTORAL with ADM wrap) 04/10/25 1217 <Electronically signed by Giacomo Philip MD> Cosigner Signature (if applicable): CC: Dr. Aria Sanchez MD; Dr. Giacomo Philip MD~ Signed [facility] Work Phone: 1(207) 993-576707-16-2025 Nuclear medicine Diagnostic study note [facility] Imaging Services [address] [place] [address] Lymph Node Injection Only MR#: [id number] Acct: [id number] Name: BERRY ABAD JOVANA Rep #: [id number] : 1945 F 79 From: Beltran Durand MD PCP: Dr. Aria Sanchez MD Status: [facility] Study:Lymph Node Injection Only Date of Exam: 04/10/25 Exam# [id number] Ordering Dr: Yajaira Landrum PA-C PROCEDURE: LYMPH [...] injected subdermally for sentinelnode imaging. Reading Location: [place] [address] CC: BERTIN Landrum; Dr. Aria Sanchez MD; Dr. Rufina Godinez MD ~ 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Signed [facility]07-16-2025 Consult note [facility] Medical Records Department [address] [place] [address] Pre-Anesthesia Evaluation 04/10/25 0847 MR#: [id number] Acct: [id number] Name: BERRY ABAD JOVANA Rep #:[id number] : 1945 79 From: Rafita Rios MD PCP: Dr. 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 Anesthesia History Anesthesia History - director channel: Anesthesia History - director channel Hx Hospitalization Yes: 02/2024 FALL 03/27/25 14:44 [...] take am of surgery PONV PONV - director channel: PONV - director channel Female Yes 03/27/25 14:44 HX of Motion [...] 04/10/25 07:33 Respiratory Assessment Respiratory Assessment - director channel: Respiratory Tract Infection Hx - director channel Hx Respiratory Tract Infection No 03/27/25 14:44 STOP Sleep Apnea STOP Sleep Apnea - director channel: STOP Sleep Apnea - director channel Hx Hypertension Yes: CONTROLLED ON MED 03/27/25 [...] Tobacco Use History Tobacco Use History - director channel: Tobacco Use History - director channel Tobacco Use Smoking Status Former smoker 03/27/25 14:44 Hx Tobacco Use No 03/27/25 14:44 Years Smoking Packs Smoked per Day Smoking Cessation Date was No - quit smoking greater 03/27/25 14:44 within the last 15 years than 15 years ago Hx Smoking Cessation Date Hx Smoking Cessation No 03/27/25 14:44 Counseling Hematologic Medial History Hematologic Hx - director channel: 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 Hx of Blood Transfusion No 03/27/25 14:44 [...] confused, unrespo /Reproduction History /Reproductive History - director channel: /Reproductive Hx- director channel Hx Now No 03/27/25 14:44 Gestational Age [...] Medications ?Medication ?Instructions ?Recorded ?Last Taken ?Type rzcyiwey-gjvb-edvh 8 mg-folic 400 1 ea PO DAILY [...] MD Cosigner Signature: Date CC: ~ Signed [facility]07-16-2025 History and physical note [facility] Medical Records Department [address] [place] [address] History & Physical Exam 04/10/25 0841 MR#: [id number] Acct: [id number] Name: BERRY ABAD JOVANA Rep #:[id number] : 1945 79 From: Rufina Godinez MD PCP: Dr. Aria Sanchez MD Status:[facility] Location: [place] [address] History and Physical Date of Admission: 04/10/25 Date of Service: 03/22/25 MR#: [id number] Acct: [id number] Name: BERRY ABAD JOVANA Rep #: [id number] : 1945 Provider: Dr. Rufina Godinez MD Age/Sex: 79/F Location: [facility] Status: Signed Intake Vital Signs 03/15/2509:19 03/18/2511:00 [...] constipation Medications ?Medication ?Instructions ?Recorded ?Confirmed ?Type lfxsxzwl-xtsv-ricq 8 mg-folic 400 1 ea PO DAILY [...] reconstruction. Patient and markers were ER positive MT negative, HER2 equivocal FISH pending. Patient is [...] cooperative, healthy appearing and no acute distress [facility] Head: normal to inspection Chest Other: Breast [...] no further questions. Rufina Godinez M.D. Pager: [phone] [facility] [address] [place] [address], [address] [place] [address] Office: [phone] Coding Level of Care Code Off vis,est,level 4 Diagnoses Invasive lobular carcinoma of breast in female C50.919 Clinical Quality Measures Falls Risk Screening/Assistive Devices Have you fallen in the past year?: No 03/25/25 0845 Date Rufina Godinez MD 04/10/25 0841 Cosigner [...] MD; Dr. Rufina Godinez MD ~* Signed [facility]07-16-2025 [facility] History and physical note [facility] Medical Records Department [address] [place] [address] H&P Exam - Surgical 04/10/25 0717 MR#: [id number] Acct: [id number] Name: BERRY ABAD Rep #:[id number] : 1945 79 From: Giacomo Philip MD PCP: Dr. Aria Sanchez MD Status:[facility] Location: [place] [address] HPI - General HPI Narrative HPI from [...] Patient would like to have the tissue structural metal fabricator apprentice placed above the muscle after ourdiscussion. The surgical plan includes the possibility of using a tissue structural metal fabricator apprentice initially,with the option to delay implant placement if the surgical site does not appear optimal post-mastectomy. The patient isinformed about the potential need for multiple procedures, including the use of FlexHD to stabilizethe implant and the process of expanding the tissue structural metal fabricator apprentice with air initially, followed by fluid Current Encounter (DATE OF SURGERY H&P UPDATE): I saw and examined the patient this morning in pre-operative holding. We discussed risks and benefits of today's surgery and they would like to proceed. NO CHANGE in health history since last seen and evaluated. Ready to proceed with surgery. [facility] Medical History Wears hearing aid Wears [...] Medications ?Medication ?Instructions ?Recorded ?Last Taken ?Type fwniemoq-asfu-ddyl 8 mg-folic 400 1 ea PO DAILY [...] candidate for implant-based breast reconstruction with tissue structural metal fabricator apprentice followed byexchange for silicone implant (patient desires silicone asshe has a silicone on the other side) andpossible use of acellular dermal matrix, use of acellular dermal matrix (ADM) is used as an off-label device and can potentially increase postoperative complications (discussed infection, seroma, failure to incorporate, and other ADM complications). Furthermore we discussed subpectoral placement of the tissue structural metal fabricator apprentice to match the contralateral breast, but patient wants above muscle for pain considerations. Will plan for prepectoral. I talked her about multistage surgery with exchange of the tissue structural metal fabricator apprentice once it is at the appropriate size [...] the insurance company as necessary. The tissue structural metal fabricator apprentice will initially be filled with air, followed [...] for reconstruction (skin sparing mastectomy followed bytissue structural metal fabricator apprentice placement, but PREPECTORAL with ADM wrap) 04/10/25 0726 Cosigner Signature (if applicable): CC: Dr. Aria Sanchez MD; Dr. Giacomo Philip MD~ Signed [facility]07-08-2025 Hospital Discharge instructionsAmbulatory Orders* 12 Lead EKG [[facility]] Time Frame: 04/02/25, Location: None Selected Additional Instructions Breast tissue structural metal fabricator apprentice placement Instructions for My Care at Home [...] document) At your earliest convenience, please call [phone] to confirm/schedule a follow-up appointment with me [...] or if you have any questions, call [phone] Drain Care: A drain has been placed [...] when the drainage fills the bulb almost residential. Please keep daily amounts of drainage separate [...] PM AM Noon PM Date: Total (daily) [facility] Work Phone: 1(335) 695-132406-23-2025 NoteRequest received from Bertha Bo MD of [facility], [facility] for HER2, FISH testing on the unstained slides received from [facility]. Pre-Op Diagnosis: left breast biopsy, BIRAD5.[facility] LimaComment on above:Performed By: #### SURGP #### [facility] (DEFAULT) [address] [id number] Evaluation note* Diagnosis Onset Date Resolution Status Admit Date Left breast mass acute February 2:35pm Status post placement of implantable loop recorder chronic February 242024 2:35pm [facility] Work Phone: 1(243) 838-491306-11-2025 Evaluation note* Diagnosis Onset Date Resolution Status Admit Date Left breast mass acute February 2:35pm Status post placement of implantable loop recorder chronic February 242024 2:35pm Left breast mass acute February 2:10pm [facility] Work Phone: 1(986) 732-831206-11-2025 Evaluation note* Diagnosis Onset Date Resolution Status Admit Date Left breast mass acute February 2:35pm Status post placement of implantable loop recorder chronic February 242024 2:35pm Left breast mass acute February 2:10pm Left breast mass acute February 2:11pm [facility] Work Phone: 1(906) 346-100306-11-2025 Evaluation note* Diagnosis Onset Date Resolution Status Admit Date Left breast mass acute February 2:35pm Status post placement of implantable loop recorder chronic February 242024 2:35pm Left breast mass acute February 2:10pm Left breast mass acute February 2:11pm Invasive lobular carcinoma o f breast in female acute March 22, 2025 8:07am [place] [facility] Work Phone: 1(277) 132-975706-11-2025 Evaluation note* Diagnosis Onset Date Resolution Status [...] 6:59am Left breast mass acute March 6:59am [facility] Work Phone: 1(241) 290-911006-11-2025 Evaluation note* Diagnosis Onset Date Resolution Status Admit Date Status post placement of implantable loop recorder chronic February 242024 2:35pm Left breast mass resolved February 2:35pm Left breast mass resolved February 2:10pm Left breast mass resolved February 2:11pm Invasive lobular carcinoma o f breast in female acute March 22, 2025 8:07am Invasive lobular carcinoma o f breast in female acute March 28, 2025 9:22am Left breast mass resolved March 9:22am Invasive lobular carcinoma o f breast in female acute April 10, 2025 6:59am Left breast mass resolved March 6:59am Status post mastectomy acute 2024 10:14am [facility] Work Phone: [phone] Evaluation note* Diagnosis Onset Date Resolution Status Admit Date Status post placement of implantable loop recorder chronic February 242024 2:35pm Left breast mass resolved February 2:35pm Left breast mass resolved February 2:10pm Left breast mass resolved February 2:11pm Invasive lobular carcinoma o f breast in female acute March 22, 2025 8:07am Invasive lobular carcinoma o f breast in female acute March 28, 2025 9:22am Left breast mass resolved March 9:22am Invasive lobular carcinoma o f breast in female acute April 10, 2025 6:59am Left breast mass resolved March 6:59am Status post mastectomy acute Ju [place] 2024 10:14am Invasive lobular carcinoma o f breast in female acute April 24, 2025 1:14pm Status post mastectomy acute Ju [place] 2024 1:14pm [facility] Work Phone: 1(785) 390-832306-11-2025 Evaluation note* Diagnosis Onset Date Resolution Status Admit Date Status post placement of implantable loop recorder chronic February 242024 2:35pm Left breast mass resolved February 2:35pm Left breast mass resolved February 2:10pm Left breast mass resolved February 2:11pm Invasive lobular carcinoma o f breast in female acute March 22, 2025 8:07am Invasive lobular carcinoma o f breast in female acute March 28, 2025 9:22am Left breast mass resolved March 9:22am Invasive lobular carcinoma o f breast in female acute April 10, 2025 6:59am Left breast mass resolved March 6:59am Status post mastectomy acute Ju [place] 2024 10:14am Invasive lobular carcinoma o f breast in female acute April 24, 2025 1:14pm Status post mastectomy acute Ju ly 2024 1:14pm Status post mastectomy acute [place] 2024 9:54am [facility] Work Phone: 1(827) 850-149006-11-2025 Evaluation note* Diagnosis Onset Date Resolution Status Admit Date Status post placement of implantable loop recorder chronic February 242024 2:35pm Left breast mass resolved February 2:35pm Left breast mass resolved February 2:10pm Left breast mass resolved February 2:11pm Invasive lobular carcinoma o f breast in female acute March 22, 2025 8:07am Invasive lobular carcinoma o f breast in female acute March 28, 2025 9:22am Left breast mass resolved March 9:22am Invasive lobular carcinoma o f breast in female acute April 10, 2025 6:59am Left breast mass resolved March 6:59am Status post mastectomy acute Ju [place] 2024 10:14am Invasive lobular carcinoma o f breast in female acute April 24, 2025 1:14pm Status post mastectomy acute Ju [place] 2024 1:14pm Status post mastectomy acute [place] 2024 9:54am Status post mastectomy acute [place] 2024 8:54am [place] [facility] Work Phone: 1(634) 780-266706-11-2025 Evaluation note* Diagnosis Onset Date Resolution Status Admit Date Status post placement of implantable loop recorder chronic February 242024 2:35pm Left breast mass resolved February 2:35pm Left breast mass resolved February 2:10pm Left breast mass resolved February 2:11pm Invasive lobular carcinoma o f breast in female acute March 22, 2025 8:07am Invasive lobular carcinoma o f breast in female acute March 28, 2025 9:22am Left breast mass resolved March 9:22am Invasive lobular carcinoma o f breast in female acute April 10, 2025 6:59am Left breast mass resolved March 6:59am Status post mastectomy acute Ju [place] 2024 10:14am Invasive lobular carcinoma o f breast in female acute April 24, 2025 1:14pm Status post mastectomy acute [place] 2024 1:14pm Status post mastectomy acute [place] 2024 9:54am Status post mastectomy acute [place] 2024 8:54am Status post mastectomy acute [place] 2024 3:51pm [facility] Work Phone: 1(559) 461-629806-11-2025 Evaluation note* Diagnosis Onset Date Resolution Status Admit Date Status post placement of implantable loop recorder chronic February 242024 2:35pm Left breast mass resolved February 2:35pm Left breast mass resolved February 2:10pm Left breast mass resolved February 2:11pm Invasive lobular carcinoma o f breast in female acute March 22, 2025 8:07am Invasive lobular carcinoma o f breast in female acute March 28, 2025 9:22am Left breast mass resolved March 9:22am Invasive lobular carcinoma o f breast in female acute April 10, 2025 6:59am Left breast mass resolved March 6:59am Status post mastectomy acute [place] 2024 10:14am Invasive lobular carcinoma o f breast in female acute April 24, 2025 1:14pm Status post mastectomy acute Ju [place] 2024 1:14pm Status post mastectomy acute [place] 2024 9:54am Status post mastectomy acute [place] 2024 8:54am Status post mastectomy acute [place] 2024 3:51pm Status post mastectomy acute [place] 2024 8:25am Invasive lobular carcinoma o f breast in female acute May 16 8:55am [place] [facility] Work Phone: 1(692) 684-847806-11-2025 Evaluation note* Diagnosis Onset Date Resolution Status Admit Date Status post placement of implantable loop recorder chronic February 242024 2:35pm Left breast mass resolved February 2:35pm Left breast mass resolved February 2:10pm Left breast mass resolved February 2:11pm Invasive lobular carcinoma o f breast in female acute March 22, 2025 8:07am Invasive lobular carcinoma o f breast in female acute March 28, 2025 9:22am Left breast mass resolved March 9:22am Invasive lobular carcinoma o f breast in female acute April 10, 2025 6:59am Left breast mass resolved March 6:59am Status post mastectomy acute Ju ly 2024 10:14am Invasive lobular carcinoma o f breast in female acute April 24, 2025 1:14pm Status post mastectomy acute Ju ly 2024 1:14pm Status post mastectomy acute [place] 2024 9:54am Status post mastectomy acute [place] 2024 8:54am Status post mastectomy acute [place] 2024 3:51pm Status post mastectomy acute [place] 2024 8:25am Invasive lobular carcinoma o f breast in female acute May 16 8:55am Status post mastectomy acute [place] 2024 11:16am [place] [employer] Work Phone: 1(862) 632-629306-11-2025 Evaluation note* Diagnosis Onset Date Resolution Status Admit Date Status post placement of implantable loop recorder chronic February 242024 2:35pm Left breast mass resolved February 2:35pm Left breast mass resolved February 2:10pm Left breast mass resolved February 2:11pm Invasive lobular carcinoma of breast in female acute March 22, 2 025 8:07am Invasive lobular carcinoma of breast in female acute March 28 9:22am Left breast mass resolved March 9:22am Invasive lobular carcinoma of breast in female acute April 10, 2 025 6:59am Left breast mass resolved March 6:59am Status post mastectomy acute Ju ly 2024 10:14am Invasive lobular carcinoma of breast in female acute April 24, 025 1:14pm Status post mastectomy acute Ju ly 2024 1:14pm Status post mastectomy acute [place] 2024 9:54am Status post mastectomy acute [place] 2024 8:54am Status post mastectomy acute [place] 2024 3:51pm Status post mastectomy acute [place] 2024 8:25am Invasive lobular carcinoma of breast in female acute May 16, 2025 8:55am Status post mastectomy acute [place] 2024 11:16am Status post mastectomy acute Se ptember 2024 10:04am Encounter for education acute S eptember 2024 1:45pm Invasive lobular carcinoma of breast in female acute May 1:45pm [facility] Work Phone: 1(127) 839-448506-11-2025 Evaluation note* Diagnosis Onset Date Resolution Status Admit Date Status post placement of implantable loop recorder chronic February 242024 2:35pm Left breast mass resolved February 2:35pm Left breast mass resolved February 2:10pm Left breast mass resolved February 2:11pm Invasive lobular carcinoma of breast in female acute March 22, 2 025 8:07am Invasive lobular carcinoma of breast in female acute March 28 9:22am Left breast mass resolved March 9:22am Invasive lobular carcinoma of breast in female acute April 10, 2 025 6:59am Left breast mass resolved March 6:59am Status post mastectomy acute Ju ly 2024 10:14am Invasive lobular carcinoma of breast in female acute April 24, 2 025 1:14pm Status post mastectomy acute Ju ly 2024 1:14pm Status post mastectomy acute [place] 2024 9:54am Status post mastectomy acute [place] 2024 8:54am Status post mastectomy acute [place] 2024 3:51pm Status post mastectomy acute [place] 2024 8:25am Invasive lobular carcinoma of breast in female acute May 16, 2025 8:55am Status post mastectomy acute [place] 2024 11:16am Status post mastectomy acute Se ptember 2024 10:04am Encounter for education acute S eptember 2024 1:45pm Invasive lobular carcinoma of breast in female acute May 1:45pm Status post mastectomy acute Se ptember 2024 8:00am [place] [facility] [employer] Work Phone: 1(934) 978-966406-08-2025 History and physical note Author Kameron Gamez [facility] Note Date/Time March 03, 2025 6:23a m [facility] Medical Records Department [address] [place] [address] History & Physical Exam 02/28/25 1333 MR#: [id number] Acct: [id number] Name: BERRY ABAD Rep #:[id number] : 1945 79 From: Kameron Gamez MD PCP: Dr. Aria Sanchez MD Status:PRE [facility] Location: [facility] History and Physical Date of Admission: 03/18/25 This is a pleasant 79-year-old lady who presents to the cardiac powerhouse laborer for a loop recorder explant. She was previously seen for concerns of falling. This is the third episode of a significant fall with a head injury that she has had in ayear. She was sitting down and got up [...] EMR Allergies See EMR Medications See EMR [facility] Medical History Laceration of left middle [...] recorder: Status: Acute Comment: Pfeiffer ILR implanted [facility] on 03/20/24 Plan: Patient was recently diagnosed with breast cancer, and will be undergoing a mastectomy. She would like to have her loop recorder explanted prior to this. 03/03/25 0623 <Electronically signed by Kameron Gamez MD> Cosigner Signature (if applicable): 02/28/25 1337 <Electronically signed by Alka THORPE> CC: ILA Kaur; Dr. Kameron Gamez MD; Dr. Aria Sanchez MD~ Signed [facility] Work Phone: 1([phone]) 363-241806-08-2025 History and physical note [facility] Medical Records Department [address] [place] [address] History & Physical Exam 02/28/25 1333 MR#: [id number] Acct: [id number] Name: BERRY ABAD JOVANA Rep #:[id number] : 1945 79 From: Kameron Gamez MD PCP: Dr. Aria Sanchez MD Status:PRE [facility] Location: [facility] History and Physical Date of Admission: 03/18/25 This is a pleasant 79-year-old lady who presents to the cardiac powerhouse laborer for a loop recorder explant. She was previously seen for concerns of falling. This is the third episode of a significant fall with a head injury that she has had in [place]. She was sitting down and got up [...] EMR Allergies See EMR Medications See EMR [facility] Medical History Laceration of left middle [...] implantable loop recorder: Status: Acute Comment: Margarette ILR implanted [facility] on 03/20/24 Plan: Patient was recently diagnosed with breast cancer, and will be undergoing a mastectomy. She would like to have her loop recorder explanted prior to this. 03/03/25 06 Cosigner Signature (if applicable): 02/28/25 1337 CC: ILA Kaur; Dr. Kameron Gamez MD; Dr. Aria Sanchez MD~ Signed [facility]06-05-2025 [facility]05-28-2025 Radiology Diagnostic study note [facility] Imaging Services [address] [place] [address] Breast Complete Unilateral MR#: [id number] Acct: [id number] Name: BERRY ABAD JOVANA Rep #: [id number] : 1945 F 79 From: Kirsten Wilson MD PCP: Dr. Aria Sanchez MD Status: REG CLI Study:Breast Complete Unilateral Date of Exam : 02/20/25 Exam# [id number] Ordering Dr: Jaylon Sanchez MD PROCEDURE: BREAST [...] 5: HIGHLY SUGGESTIVE OF MALIGNANCY. Reading Location: [id number] CC: Dr. Aria Sanchez MD ~ 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Signed [facility]08-15-2024 History of Present illness Narrative* Radha [...] 1945 Current Age: [age] year old MRN/E# [id number] Last Office Visit: 04/12/2024 Ms.Patricia Abad has consented to this telephone encounter. PERSONS PRESENT: patient CHIEF COMPLAINT: Patient presents with: Follow Up HPI: The patient presents via telephone for a follow up with imaging (CT B) for evaluation. This is a 78-year-old female with a PMHx of HTN and breast CA who was seen for consult at [facility] on 03/09/[address] Bagley. She [...] 3-month follow-up AZEEM Tan Neurosurgery Nurse Practitioner [facility] FOLLOW UP: Return in about 3 months (around 08/10/2024) for Routine visit. I have communicated my name and active licensure. The patient's identity and physical location wereverified at the time of this visit. Either the patient or their legal liability claims representative has been informed of the risks and benefits of -- and alternatives to -- treatment through a remote evaluation andconsents to proceed with the evaluation remotely. Time spent: 5-10 minutes Please Note: This note has been partially generated using MyPublisher, a speech recognition software program, and may contain errors including punctuation, grammar, spelling, gender, and inappropriate words or phrases that pertain to the system. documented in this [facility]Prem[facility]08-15-2024 NoteHNO ID: [id number] Author: RADHA MOSLEY APRN.CNP Service: ? Author [...] 1945 Current Age: [age] year old MRN/E# [id number] Last Office Visit: 04/12/2024 Ms.Patricia Abad has consented to this telephone encounter. PERSONS PRESENT: patient CHIEF COMPLAINT: Patient presents with: Follow Up HPI: The patient presents via telephone for a follow up with imaging (CT B) for evaluation. This is a 78-year-old female with a PMHx of HTN and breast CA who was seen for consult at [facility] on 03/09/[address] Bagley. She [...] (HCC) (primary encounter diagnosis) (more content not included)...[facility]08-12-2024 History of Present illness Narrative* Alyse [...] PATIENT PRESENTS WITH AN IMPLANTABLE OR ATTACHED LITIGATION COUNSEL: No RADIOLOGY DEPARTMENT: CT; Exam(s) Completed: Brain PERIPHERAL IV DATA: Not applicable SIGNED BY: RT Nick(Elisa) May 07, 2024 2:00 PM documented in this encounterPremier Health08-12-2024 NoteHNO ID: [id number] Author: ALYSE DENNY RT(R) Service: ? Author Type: Inspector Eyeglass Type: Progress Notes Filed: 05/07/2024 14:00 Note [...] PATIENT PRESENTS WITH AN IMPLANTABLE OR ATTACHED LITIGATION COUNSEL: No RADIOLOGY DEPARTMENT: CT; Exam(s) Completed: Brain PERIPHERAL IV DATA: Not applicable SIGNED BY: RT Nick(R) May 07, 2024 2:00 [facility]07-18-2024 History of Present illness Narrative* Radha Mosley APRN.CNP - 04/12/2024 11:30 AM EDT NEUROSURGERY FOLLOW UP OFFICE NOTE Radha Mosley APRN.CNP Date of visit: April 12, 2024 Patient Name: Ms.Patricia Abad Date of : 1945 Current Age: [age] year old Sex: female MRN/E# [id number] Last Office Visit: Hospital follow-up CHIEF COMPLAINT: Patient presents with: Established Patient HPI: The patient presents for a hospital follow up with imaging (CT B) for evaluation. This is a 78-year-old female with a PMHx of HTN and breast CA who was seen for consult at [facility] on 03/09/[address] Bagley. She [...] AGE 16 BREAST RECONSTRUCTION DELIVERY ONLY 1965, 1965, 1966 , low cervical COLONOSCOPY FLX [...] WO IVCON AZEEM Tan Neurosurgery Nurse Practitioner [facility] FOLLOW UP: Return in about 3 weeks (around 05/03/2024) for review of imaging and plan of care. Please Note: This note has been partially generated using MyPublisher, a speech recognition software program, and may contain errors including punctuation, grammar, spelling, gender, and inappropriate words or phrases that pertain to the system. documented in this encounterPremier Health07-18-2024 NoteHNO ID: [id number] Author: RADHA MOSLEY APRN.CNP Service: ? Author Type: Nurse Practitioner Type: Progress Notes Filed: 04/12/2024 12:34 Note Text: NEUROSURGERY FOLLOW UP OFFICE NOTE Radha Mosley APRN.CNP Date of visit: April 12, 2024 Patient Name: Ms.Patricia Abad Date of : 1945 Current Age: [age] year old Sex: female MRN/E# [id number] Last Office Visit: Hospital follow-up CHIEF COMPLAINT: Patient presents with: Established Patient HPI: The patient presents for a hospital follow up with imaging (CT B) for evaluation. This is a 78-year-old female with a PMHx of HTN and breast CA who was seen for consult at [facility] on 03/09/[address] Bagley. She [...] depression. OBJECTIVE: BP 130/ (more content not included)...[facility]07-15-2024 History of Present illness Narrative* Alyse [...] PATIENT PRESENTS WITH AN IMPLANTABLE OR ATTACHED LITIGATION COUNSEL: No RADIOLOGY DEPARTMENT: CT; Exam(s) Completed: Brain PERIPHERAL IV DATA: Not applicable SIGNED BY: SAULO Romero) April 09, 2024 4:05 PM documented in this encounterPremier Health07-15-2024 NoteHNO ID: [id number] Author: ALYSE DENNY RT(R) Service: ? Author Type: Inspector Eyeglass Type: Progress Notes Filed: 04/09/2024 16:05 Note [...] PATIENT PRESENTS WITH AN IMPLANTABLE OR ATTACHED LITIGATION COUNSEL: No RADIOLOGY DEPARTMENT: CT; Exam(s) Completed: Brain PERIPHERAL IV DATA: Not applicable SIGNED BY: MARGIE RomeroR) April 09, 2024 4:05 [facility]06-17-2024 Miscellaneous Notes* Telephone Encounter - Anibal Marin - 03/12/2024 2:53 PM EDT Called patient, left detailed message regarding possibly scheduling an eval with our tbi clinic. Awaiting callback. documented in this encounterPremier Health06-17-2024 Telephone encounter Note * Telephone Encounter - Anibal Marin - 03/12/2024 2:53 PM EDT Called patient, left detailed message regarding possibly scheduling an eval with our tbi clinic. Awaiting callback. [facility] Work Phone: 1(840) 530-799106-17-2024 NoteHNO ID: [id number] Author: YANDEL CRUZ, Research Coordinator Service: ? Author Type: Research Type: Progress Notes Filed: 03/12/2024 14:48 Note Text: Summary: IRB#[id number]: Traumatic Brain Injury Patient Registry - Consent Discussion Study #[id number]: Traumatic Brain Injury Patient Registry PI: John Raman MD Visit: Consent Visit Date: March 12, 2024 Patient Name: Berry Abad Date of : 1945 MRN/E #: [id number] Patient approached for consideration for #[id number]: Traumatic Brain Injury Patient Registry. Eligibility confirmed [...] time. Yandel Cruz, Research Coordinator Pager # [phone] NoteHNO ID: [id number] Author: ARIS MARIN APRN.CNP Service: Neurosurgery Author Type: Nurse Practitioner Type: Progress Notes Filed: 03/11/2024 11:14 Note Text: Neurosurgery Progress Note SERVICE DATE: 03/11/2024 SUBJECTIVE: NAECHANELL. Naeemies BRUNO/n/v OBJECTIVE: Vitals: Temp (24hrs), Av.7 ?C (98 ?F), Min:36.5 ?C (97.7 ?F), Max:36.8 ?C (98.3 ?F) BP 125/72 Pulse 84 Temp 36.5 ?C (97.7 ?F) (Oral) Resp 18 Ht 165.1 cm (5' 5) Wt 60.3 kg (132 lb 15 oz) SpO2 88% BMI 22.12 kg/m? O2 Therapy: Room Air IANDO: Date 03/10/24699 - 03/11/2465803/11/24699 - 03/12/24 0659 Shift 8876-8949 9451-4232 8409-9900 24 Hour Total 6031-8263 1025-7306 8287-9754 24 Hour Total INTAKE PO 240 240 [...] March 11, 2024 TIME: 9:11 AM Pager: [phone]06-[facility]-2024 NoteHNO ID: [id number] Author: BC ANN APRN.CNP Service: General Surgery Author Type: Nurse Practitioner Type: Progress Notes Filed: 03/11/2024 15:47 Note Text: Trauma Surgery Progress Note SERVICE DATE: 03/11/2024 Trauma Service Pager: For questions or concerns Mon-Fri 6a-5p please page [phone]. After 5pm and on Weekends and Holidays, please page [phone] if in ICU or [phone] if on RNF. SUBJECTIVE: NAEON. 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 Case management following. Incidentals: None Follow Up Needs: KAVON - Dr. Bagley in 2 weeks Staff Trauma Surgeon: Dr. Spence SIGNATURE: Bc Ann APRN.CNP PATIENT NAME: Berry Abad DATE: 03/11/2024 TIME: 3:46 PM Pager: see below Trauma Service Pager: For questions or concerns Mon-Fri 6a-5p please page [phone]. After 5pm and on Weekends and Holidays, please page [phone] if in ICU or [phone] if on RNF.[facility]06-15-2024 NoteHNO ID: [id number] Author: MONTY BAGLEY MD Service: Neurosurgery Author [...] no plans for neurosurgical intervention Monty Bagley MDAWill[facility]06-15-2024 NoteHNO ID: [id number] Author: NANNETTE DE LEON PA-C Service: Neurosurgery Author Type: Physician Rating Clerk Type: Plan of Care Filed: 03/10/2024 00:19 Note Text: Neurosurgery Plan of Care Note: CTH demonstrates interval worsening of right convexity SDH, still without MLS. Final read pending Still no acute intervention indicated. Will order repeat 6 hour scan. Nannette De Leon PA-C Department of Neurosurgery Pager: [phone] [facility] [employer] Pager: [phone] March 10, 2024 12:17 [facility] noteNo assessment information availableWMartins Ferry Hospital Work Phone: Evaluation note* Diagnosis SDH (subdural hematoma) (HCC) Subdural hemorrhage documented in this encounter [facility]* Diagnosis Subdural hematoma (HCC)- Primary Subdural hemorrhage [facility] Diagnosis Subdural hematoma (HCC) Subdural hemorrhage documented in this encounter [facility]* Diagnosis Subdural hematoma (HCC)- Primary Subdural hemorrhage documented in this encounter [facility] note Author Giacomo Philip [facility] Note Date/Time June 20, 2025 8:40am [facility] [address], [address] [place] [address] OFFICE VISIT Date of Service: 06/20/25 MR#: [id number] Acct: [id number] Name: BERRY ABAD Rep #: [id number] : 1945 Provider: Dr. Sanchez rt MD Cedrick Age/Sex: 79/F Location: [facility] Status: Signed Intake Vital Signs 05/21/25 13:14 05/28/25 14:01 06/20/25 08:10 Height 5 ft 4 in 5 ft 4 in Weight: 149 lb 9 oz BMI 25.7 BP 115/75 111/80 Blood Pressure Location Lt brachial Rt brachial Position Sitting Sitting Respiration 16 18 Pulse 58 L 61 Pulse Source Monitor Monitor Temp 98.1 F Pulse Oximetry (%) 94 95 Oxygen Delivery Method room air room air Intake Visit Reasons: FOLLOW UP Chief Complaint: Follow up Is patient in pain?: No Allergies bupropion HCl (From Zyban) Allergy (Severe, Verified 06/20/25 08:09) Hives red dye Allergy (Mild, Verified 06/20/25 08:09) Itching bupropion (From Zyban) Allergy (Verified 06/20/25 08:09) Hives hydrocodone (From Vicodin) Adverse Reaction (Verified 06/20/25 08:09) N/V hydromorphone Adverse Reaction (Verified 06/20/25 08:09) constipation Medications ?Medication ?Instructions ?Recorded ?Confirmed ?Type jksyeucj-blfl-dudm 8 mg-folic 400 1 ea PO DAILY SUPPLE MENT 05/27/16 06/20/25 History mcg-K 50 mcg-lutein 300 mcg tablet atorvastatin 40 mg tablet 40 mg PO QHS CHOLESTEROL #90 tabs 07/12/24 06/20/25 Rx famotidine-Ca carb-mag hydrox 10 1 tab PO DAILY PRN in digestion 07/12/24 06/20/25 History mg-800 mg-165 mg chewable tablet (Pepcid Complete) metoprolol succinate 25 mg 25 mg PO DAILY BP #90 tabs 07/12/24 06/20/25 Rx tablet,extended release 24 hr (Toprol XL) levothyroxine 75 mcg tablet 75 mcg PO DAILY THYROID 06/20/25 History acetaminophen 325 mg tablet 650 mg (2 x 325 mg) PO Q6H PRN PRN 04/11/25 06/20/25 Rx Pain Score 1-10 #0 tabs docusate sodium 100 mg capsule 100 mg PO BID #10 caps 04/11/25 06/20/25 Rx (Colace) lactobacillus combination no.9 4 4,000 mmu cells PO QD AY 05/16/25 06/20/25 History billion cell capsule (Adult 50 Plus Probiotic) Have you fallen in the past year?: No Subjective Details: Patient doing well overall. No fevers chills or drainage. Tolerated expansion and is happy with the size of the left breast. 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 No drainage or concerns of infection at this time. No redness. 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 Left side slightly larger than the right Coding Level of Care Code Global Post Op Diagnoses Status post mastectomy Z90.10 [facility] Medical History Encounter for education Wears hearing aid Wears glasses Post-menopausal Cancer [...] Essential (primary) hypertension Surgical History History of left mastectomy Hx of neck surgery History of breast reconstruction H/O section History of appendectomy History of mastectomy Family History Brother , age 49 Cancer lung Father Heart disease Mother Dementia Social History Smoking Status: Former smoker quit date: 09/26/04 pack-years: 40 Tobacco: How many years used: 40 how long ago did patient quit smokin years ago second hand exposure: Yes alcohol intake: current alcohol intake frequency: 0-2 drinks per day Alcohol type: wine Assessment and Plan (No Qualifiers) Assessment and Plan (1) Status post mastectomy: Status: Acute Comment: TE placement left breast Plan: Patient happy so far with process. I spoke with her about the right breast implant, which was placed in 2008. She has not had any surveillance imaging. The right breast implant is soft and in reasonable position and the patient is happy with it. She is not interested in any revision surgery to the right breast unless the implant would be ruptured. I recommended that we get a surveillance ultrasound or MRI, and she agreed to a surveillance ultrasound for the right breast implant to check for rupture and check the integrity of the implant. I talked her about the risks, benefits, andalternatives to any further breast surgery, which include the risk of infection and need for explantation. Plan will be for tissue structural metal fabricator apprentice exchange in 6 weeks on the left side for permanent implant. After thorough discussion with the patient, she would like the right implant exchanged only if it appears to be ruptured on the ultrasound. Otherwise she just desires to have surgery on the left side for tissue expanderexchange. Plan follow-up in 1 month before surgery 06/20/25 1766 <Electronically signed by Giacomo Philip MD> Date _ Giacomo Philip MD Cosigner Signature: Date (if applicable) CC: ~ [facility] Work Phone: Reason for referral (narrative)No reason for referral information availableWMartins Ferry Hospital Work Phone: Advance Directives No Advanced Directives Records Found Advance Directive Response Recorded Date/ Time Advance Directives Yes May 5:40pm Living Will Yes May 27 016 5:40pm Power of Thermo Cementing Folder Operator Yes May 27, 2016 5:40pm Advance Directive Response Recorded Date/ Time Advance Directives Yes May 4:40pm Living Will Yes May 27 016 4:40pm Power of Thermo Cementing Folder Operator Yes May 27, 2016 4:40pm Date Activated [...] Do you have a Healthcare Power of Thermo Cementing Folder Operator? Yes March 18, 2025 11:00am Name of Medical Power of Thermo Cementing Folder Operator Davian Pollo March 18, 2025 11:00am Advance Directives Yes March 18 11:00am Advance Directive Response Recorded Date/ Time Advance Directives on File Yes March 18, 2025 11:00am Living Will Yes March 18, 2025 11:00am Do you have a Healthcare Power of Thermo Cementing Folder Operator? Yes March 18, 2025 11:00am Name of Medical Power of Thermo Cementing Folder Operator Davian Pollo March 18, 2025 11:00am Advance Directives Yes March 18 11:00am Do you have a Healthcare Power of Thermo Cementing Folder Operator? Yes April 10, 2025 4:38pm Advance Directive Response Recorded Date/ Time Advance Directives on File Yes March 18, 2025 11:00am Living Will Yes March 18, 2025 11:00am Do you have a Healthcare Power of Thermo Cementing Folder Operator? Yes March 18, 2025 11:00am Name of Medical Power of Thermo Cementing Folder Operator Davian Abad March 18, 2025 11:00am Do you have a Healthcare Power of Thermo Cementing Folder Operator? Yes April 10, 2025 4:38pm Advance Directives Yes April 18 10:51am Advance Directive Response Recorded Date/ Time Advance Directives Yes April 18 10:51am Advance Directives on File Yes March 18, 2025 11:00am Living Will Yes March 18, 2025 11:00am Do you have a Healthcare Power of Thermo Cementing Folder Operator? Yes March 18, 2025 11:00am Name of Medical Power of Thermo Cementing Folder Operator Davian Pollo March 18, 2025 11:00am Do you have a [facility] Power of Thermo Cementing Folder Operator? Yes April 10, 2025 4:38pm Chief Complaint [...] 10:2 6am DISCUSS MASECTOMY COMBO WITH DR CEDRICK Ray ne 2024 8:07am Chief Complaint Admit [...] 10:2 6am DISCUSS MASECTOMY COMBO WITH DR CEDRICK cummings 2024 8:07am FOLLOW UP March 28, 2025 [...] 10:2 6am DISCUSS MASECTOMY COMBO WITH DR CEDRICK cummings 2024 8:07am FOLLOW UP March 28, 2025 [...] 10:2 6am DISCUSS MASECTOMY COMBO WITH DR CEDRICK cummings 2024 8:07am FOLLOW UP March 28, 2025 [...] POST OP April 18, 2025 10:1 4am Chief Complaint Admit Date SCREENING February 15, 2025 8:15a m R92.8 [...] 10:2 6am DISCUSS MASECTOMY COMBO WITH DR CEDRICK cummings 2024 8:07am FOLLOW UP March 28, 2025 [...] POST OP April 18, 2025 10:1 4am s/p masectomy April 24, 2025 1:14 pm Reason for Visit Admit Date Status post placement of implantable loo p recorder March 06, 2025 2:35pm Left breast mass March 06, 2025 2:35 pm Left breast mass March 07, 2025 2:10 [...] breast mass April 10, 2025 6:59 am Status post mastectomy April 18, 2025 1 0:14am Chief Complaint Admit Date SCREENING February 15, 2025 8:15a m R92.8 [...] 10:2 6am DISCUSS MASECTOMY COMBO WITH DR CEDRICK Ray ne 2024 8:07am FOLLOW UP March [...] POST OP April 18, 2025 10:1 4am s/p masectomy April 24, 2025 1:14 pm 1 W FU April 26, 2025 9:5 4am Reason for Visit Admit Date Status post placement of implantable loo p recorder March 06, 2025 2:35pm Left breast mass March 06, 2025 2:35 pm Left breast mass March 07, 2025 2:10 [...] breast mass April 10, 2025 6:59 am Status post mastectomy April 18, 2025 1 0:14am Invasive lobular carcinoma of breast in female April 24, 2025 1:14pm Status post mastectomy April 24, 2025 1 :14pm Reason for Visit Admit Date Status post placement of implantable loo p recorder March 06, 2025 2:35pm Left breast mass March 06, 2025 2:35 pm Left breast mass March 07, 2025 2:10 [...] breast mass April 10, 2025 6:59 am Status post mastectomy April 18, 2025 1 0:14am Invasive lobular carcinoma of breast in female April 24, 2025 1:14pm Status post mastectomy April 24, 2025 1 :14pm Status post mastectomy April 26, 2025 9:54am Chief Complaint Admit Date SCREENING February 15, 2025 8:15a m R92.8 ABN MAMM February 20, 2025 1:45p m ILR REMOVAL February 28, 2025 1:33p m Pacer Check Remote March 01, 2025 1:50p m BIRADS March 06, 2025 2:35 pm L BREAST BIOPSY March 06, 2025 4:05 pm L BREAST MASS March 07, 2025 2:10 pm FOLLOW UP March 13, 2025 2:11 pm ILR REMOVAL March 18, 2025 10:2 6am DISCUSS MASECTOMY COMBO WITH DR CEDRICK Ray ne 2024 8:07am FOLLOW UP March [...] POST OP April 18, 2025 10:1 4am s/p masectomy April 24, 2025 1:14 pm 1 W FU April 26, 2025 9:5 4am 1 W FU May 02, 2025 8:5 4am Chief Complaint Admit Date SCREENING February 15, 2025 8:15a m R92.8 [...] 10:2 6am DISCUSS MASECTOMY COMBO WITH DR CEDRICK Ray ne 2024 8:07am FOLLOW UP March [...] POST OP April 18, 2025 10:1 4am s/p masectomy April 24, 2025 1:14 pm 1 W FU April 26, 2025 9:5 4am 1 W FU May 02, 2025 8:5 4am 1 w fu May 08, 2025 3: 51pm Reason for Visit Admit Date Status post placement of implantable loo p recorder March 06, 2025 2:35pm Left breast mass March 06, 2025 2:35 pm Left breast mass March 07, 2025 2:10 [...] breast mass April 10, 2025 6:59 am Status post mastectomy April 18, 2025 1 0:14am Invasive lobular carcinoma of breast in female April 24, 2025 1:14pm Status post mastectomy April 24, 2025 1 :14pm Status post mastectomy April 26, 2025 9:54am Status post mastectomy May 02, 2025 8:54am Chief Complaint Admit Date SCREENING February 15, 2025 8:15a m R92.8 [...] 10:2 6am DISCUSS MASECTOMY COMBO WITH DR CEDRICK Ray ne 2024 8:07am FOLLOW UP March [...] POST OP April 18, 2025 10:1 4am s/p masectomy April 24, 2025 1:14 pm 1 W FU April 26, 2025 9:5 4am 1 W FU May 02, 2025 8:5 4am 1 w fu May 08, 2025 3: 51pm 1 W FU May 16, 2025 8: 25am Reason for Visit Admit Date Status post placement of implantable loo p recorder March 06, 2025 2:35pm Left breast mass March 06, 2025 2:35 pm Left breast mass March 07, 2025 2:10 [...] breast mass April 10, 2025 6:59 am Status post mastectomy April 18, 2025 1 0:14am Invasive lobular carcinoma of breast in female April 24, 2025 1:14pm Status post mastectomy April 24, 2025 1 :14pm Status post mastectomy April 26, 2025 9:54am Status post mastectomy May 02, 2025 8:54am Status post mastectomy May 08, 2025 3:51pm Chief Complaint Admit Date SCREENING February 15, 2025 8:15a m R92.8 [...] 10:2 6am DISCUSS MASECTOMY COMBO WITH DR CEDRICK Ray ne 2024 8:07am FOLLOW UP March [...] POST OP April 18, 2025 10:1 4am s/p masectomy April 24, 2025 1:14 pm 1 W FU April 26, 2025 9:5 4am 1 W FU May 02, 2025 8:5 4am 1 w fu May 08, 2025 3: 51pm 1 W FU May 16, 2025 8: 25am BREAST CA May 16, 2025 8: 55am Reason for Visit Admit Date Status post placement of implantable loo p recorder March 06, 2025 2:35pm Left breast mass March 06, 2025 2:35 pm Left breast mass March 07, 2025 2:10 [...] breast mass April 10, 2025 6:59 am Status post mastectomy April 18, 2025 1 0:14am Invasive lobular carcinoma of breast in female April 24, 2025 1:14pm Status post mastectomy April 24, 2025 1 :14pm Status post mastectomy April 26, 2025 9:54am Status post mastectomy May 02, 2025 8:54am Status post mastectomy May 08, 2025 3:51pm Status post mastectomy May 16, 2025 8:25am Invasive lobular carcinoma of breast in female May 16, 2025 8:55am Chief Complaint Admit Date SCREENING February 15, 2025 8:15a m R92.8 [...] 10:2 6am DISCUSS MASECTOMY COMBO WITH DR CEDRICK Ray ne 2024 8:07am FOLLOW UP March [...] POST OP April 18, 2025 10:1 4am s/p masectomy April 24, 2025 1:14 pm 1 W FU April 26, 2025 9:5 4am 1 W FU May 02, 2025 8:5 4am 1 w fu May 08, 2025 3: 51pm 1 W FU May 16, 2025 8: 25am BREAST CA May 16, 2025 8: 55am POST JENNY May 21, 2025 1: 07pm FOLLOW UP May 24, 2025 11 :16am Chief Complaint Admit Date SCREENING February 15, 2025 8:15a m R92.8 [...] 10:2 6am DISCUSS MASECTOMY COMBO WITH DR CEDRICK Ray ne 2024 8:07am FOLLOW UP March [...] POST OP April 18, 2025 10:1 4am s/p masectomy April 24, 2025 1:14 pm 1 W FU April 26, 2025 9:5 4am 1 W FU May 02, 2025 8:5 4am 1 w fu May 08, 2025 3: 51pm 1 W FU May 16, 2025 8: 25am BREAST CA May 16, 2025 8: 55am POST JENNY May 21, 2025 1: 07pm FOLLOW UP May 24, 2025 11 :16am FOLLOW UP May 28, 2025 10:04am Reason for Visit Admit Date Status post placement of implantable loo p recorder March 06, 2025 2:35pm Left breast mass March 06, 2025 2:35 pm Left breast mass March 07, 2025 2:10 [...] breast mass April 10, 2025 6:59 am Status post mastectomy April 18, 2025 1 0:14am Invasive lobular carcinoma of breast in female April 24, 2025 1:14pm Status post mastectomy April 24, 2025 1 :14pm Status post mastectomy April 26, 2025 9:54am Status post mastectomy May 02, 2025 8:54am Status post mastectomy May 08, 2025 3:51pm Status post mastectomy May 16, 2025 8:25am Invasive lobular carcinoma of breast in female May 16, 2025 8:55am Status post mastectomy May 24, 2025 11:16am Chief Complaint Admit Date SCREENING February 15, 2025 8:15a m R92.8 [...] 10:2 6am DISCUSS MASECTOMY COMBO WITH DR CEDRICK Ray ne 2024 8:07am FOLLOW UP March [...] POST OP April 18, 2025 10:1 4am s/p masectomy April 24, 2025 1:14 pm 1 W FU April 26, 2025 9:5 4am 1 W FU May 02, 2025 8:5 4am 1 w fu May 08, 2025 3: 51pm 1 W FU May 16, 2025 8: 25am BREAST CA May 16, 2025 8: 55am POST JENNY May 21, 2025 1: 07pm FOLLOW UP May 24, 2025 11 :16am FOLLOW UP May 28, 2025 10:04am CHEMO ED May 28, 2025 1:45pm Reason for Visit Admit Date Status post placement of implantable loo p recorder March 06, 2025 2:35pm Left breast mass March 06, 2025 2:35 pm Left breast mass March 07, 2025 2:10 [...] breast mass April 10, 2025 6:59 am Status post mastectomy April 18, 2025 1 0:14am Invasive lobular carcinoma of breast in female April 24, 2025 1:14pm Status post mastectomy April 24, 2025 1 :14pm Status post mastectomy April 26, 2025 9:54am Status post mastectomy May 02, 2025 8:54am Status post mastectomy May 08, 2025 3:51pm Status post mastectomy May 16, 2025 8:25am Invasive lobular carcinoma of breast in female May 16, 2025 8:55am Status post mastectomy May 24, 2025 11:16am Status post mastectomy May 28 10:04am Encounter for education May 28 1:45pm Invasive lobular carcinoma of breast in female May 28, 2025 1:45pm Chief Complaint Admit Date ILR REMOVAL February 28, 2025 1:33p m Pacer Check Remote March 01, 2025 1:50p m BIRADS 5 March 06, 2025 2:35 pm L BREAST BIOPSY March 06, 2025 4:05 pm L BREAST MASS March 07, 2025 2:10 pm FOLLOW UP March 13, 2025 2:11 pm ILR REMOVAL March 18, 2025 10:2 6am DISCUSS MASECTOMY COMBO WITH DR CEDRICK cummings 2024 8:07am FOLLOW UP March 28, 2025 [...] POST OP April 18, 2025 10:1 4am s/p masectomy April 24, 2025 1:14 pm 1 W FU April 26, 2025 9:5 4am 1 W FU May 02, 2025 8:5 4am 1 w fu May 08, 2025 3: 51pm 1 W FU May 16, 2025 8: 25am BREAST CA May 16, 2025 8: 55am POST JENNY May 21, 2025 1: 07pm FOLLOW UP May 24, 2025 11 :16am FOLLOW UP May 28, 2025 10:04am CHEMO ED May 28, 2025 1:45pm FOLLOW UP June 20, 2025 8:00am Reason for Visit Admit Date Status post placement of implantable loo p recorder March 06, 2025 2:35pm Left breast mass March 06, 2025 2:35 pm Left breast mass March 07, 2025 2:10 [...] breast mass April 10, 2025 6:59 am Status post mastectomy April 18, 2025 1 0:14am Invasive lobular carcinoma of breast in female April 24, 2025 1:14pm Status post mastectomy April 24, 2025 1 :14pm Status post mastectomy April 26, 2025 9:54am Status post mastectomy May 02, 2025 8:54am Status post mastectomy May 08, 2025 3:51pm Status post mastectomy May 16, 2025 8:25am Invasive lobular carcinoma of breast in female May 16, 2025 8:55am Status post mastectomy May 24, 2025 11:16am Status post mastectomy May 28 10:04am Encounter for education May 28 1:45pm Invasive lobular carcinoma of breast in female May 28, 2025 1:45pm Status post mastectomy June 20 025 8:00am Reason for Referral Specialty Diagnoses / Procedures Referred By Contac t Referred To Contact CT IMAGING Diagnoses SDH (subdural hematoma) (HCC) Procedures CT BRAIN WO IVCON CT HEAD/BRAIN W/O CONTRAST MATERIAL Aris Marin, HEALTH AND SAFETY REPRESENTATIVE.NURSING CARE ATTENDANT [address] [place] [address] [place] [address] Referral ID Status Reason Start Date Expiration Date V isits Requested Visits Authorized [id number] Closed Auto-Generate d Referral 03/10/2024 04/09/2025 1 1 Specialty Diagnoses / Procedures Referred By Contac t Referred To Contact CT IMAGING Diagnoses Subdural hematoma (HCC) Procedures CT BRAIN WO IVCON CT HEAD/BRAIN W/O CONTRAST MATERIAL Radha Mosley, HEALTH AND SAFETY REPRESENTATIVE.NURSING CARE ATTENDANT [address] [place] [address] [place] [address] Referral ID Status Reason Start Date Expiration Date Visits Requested Visits Authorized [id number] Authorized Auto-Generat ed Referral 04/12/2024 05/12/2025 1 1 Referral ID Status Reason Start Date Expiration Date V isits Requested Visits Authorized [id number] Closed Auto-Generate d Referral 04/12/2024 05/12/2025 1 1 Summary Purpose Family History Relationship Condition Age at Onset Recorded Date/T mo brother Malignant neoplasm Unknown father Cardiac disease Unknown mother Dementia Unknown No Family History Records Found Additional Source [...] Dr. Kameron Gamez MD Attending Provider Active Radar Signal Processing Engineer Relationship Specialty Start Date End Date Aria Sanchez MD [address] [place] [address] PCP - General Family Medicine 03/12/24 Radar Signal Processing Engineer Relationship Specialty Start Date End Date Aria Sanchez MD [address] [place] [address] PCP - General Family Medicine 03/12/24 Radar Signal Processing Engineer Relationship Specialty Start Date End Date Aria Sanchez MD [address] [place] [address] PCP - General Family Medicine 03/12/24 Radar Signal Processing Engineer Relationship Specialty Start Date End Date Aria Sanchez MD [address] [place] [address] PCP - General Family Medicine 03/12/24 Radar Signal Processing Engineer Relationship Specialty Start Date End Date Aria Sanchez MD [address] [place] [address] PCP - General Family Medicine 03/12/24 Team Status: Active Member Role [...] Active S tart: April 11, 2025 Dr. uRfina Godinez MD Referring Provider Active Start: April [...] Active S tart: April 11, 2025 Dr. uRfina Godinez MD Referring Provider Active Start: April 11, 2025 Dr. Rufina Godinez MD Other Provider Active S tart: April 11, 2025 Dr. Giacomo Philip MD Other Provider Active Star t: April 11, 2025 Yajaira COOK PAAvniC Attending Provider Active Start: April 11, 2025 [...] April 18, 2025 End: April 18, 2025 Team Status: Inactive Member Role/Relationship [...] February 28, 2025 Team Status: Inactive Member Role/Relationship [...] Active Start: March 26, 2025 Team Status: Active Member Role/Relationship Status [...] Active Member Role/Relationship Status Dates Dr. Aria Sanchze MD Primary Care Provider Active Start: April [...] Active S tart: April 11, 2025 Dr. Rufnia Godinez MD Referring Provider Active Start: April [...] S tart: April 11, 2025 Dr. Rufina Godniez MD Referring Provider Active Start: April 11, [...] April 18, 2025 End: April 18, 2025 Team Status: Active Member Role/Relationship Status Dates Dr. Aria Sanchez MD Primary Care Provider Active Start: April 19, 2025 Dr. Aria Sanchez MD Attending Provider Active St art: April 19, 2025 Dr. Aria Sanchez MD Referring Provider Active St art: April 19, 2025 Team Status: Active Member Role/Relationship Status Dates Dr. Aria Sanchez MD Primary Care Provider Active Start: April 23, 2025 Dr. Aria Sanchez MD Attending Provider Active St art: April 23, 2025 Dr. Aria Sanchez MD Referring Provider Active St art: April 23, 2025 Team Status: Inactive Member Role/Relationship Status Dates Dr. Aria Sanchez MD Primary Care Provider Active Start: April 24, 2025 End: April 24, 2025 Dr. Aria Sanchez MD Referring Provider Active St art: April 24, 2025 End: April 24, 2025 Dr. Rufina Godinez MD Attending Provider Active Start: April 24, 2025 End: April 24, 2025 Team Status: Inactive Member Role/Relationship Status Dates Dr. Aria Sanchez MD Primary Care Provider Active Start: April 19, 2025 End: April 19, 2025 Dr. Aria Sanchez MD Attending Provider Active St art: April 19, 2025 End: April 19, 2025 Dr. Aria Sanchez MD Referring Provider Active St art: April 19, 2025 End: April 19, 2025 Team Status: Inactive Member Role/Relationship Status Dates Dr. Aria Sanchez MD Primary Care Provider Active Start: April 26, 2025 End: April 26, 2025 Dr. Aria Sanchez MD Referring Provider Active St art: April 26, 2025 End: April 26, 2025 Dr. Giacomo Philip MD Attending Provider Active Start: April 26, 2025 End: April 26, 2025 Team Status: Inactive Member Role/Relationship [...] February 28, 2025 Team Status: Inactive Member Role/Relationship [...] April 18, 2025 End: April 18, 2025 Team Status: Inactive Member Role/Relationship Status Dates Dr. Aria Sanchez MD Primary Care Provider Active Start: April 19, 2025 End: April 19, 2025 Dr. Aria Sanchez MD Attending Provider Active St art: April 19, 2025 End: April 19, 2025 Dr. Aria Sanchez MD Referring Provider Active St art: April 19, 2025 End: April 19, 2025 Team Status: Inactive Member Role/Relationship Status Dates Dr. Aria Sanchez MD Primary Care Provider Active Start: April 23, 2025 End: April 23, 2025 Dr. Aria Sanchez MD Attending Provider Active St art: April 23, 2025 End: April 23, 2025 Dr. Aria Sanchez MD Referring Provider Active St art: April 23, 2025 End: April 23, 2025 Team Status: Inactive Member Role/Relationship Status Dates Dr. Aria Sanchez MD Primary Care Provider Active Start: April 24, 2025 End: April 24, 2025 Dr. Aria Sanchez MD Referring Provider Active St art: April 24, 2025 End: April 24, 2025 Dr. Rufina Godinez MD Attending Provider Active Start: April 24, 2025 End: April 24, 2025 Team Status: Inactive Member Role/Relationship Status Dates Dr. Aria Sanchez MD Primary Care Provider Active Start: April 26, 2025 End: April 26, 2025 Dr. Aria Sanchez MD Referring Provider Active St art: April 26, 2025 End: April 26, 2025 Dr. Giacomo Philip MD Attending Provider Active Start: April 26, 2025 End: April 26, 2025 Team Status: Inactive Member Role/Relationship Status Dates Dr. Aria Sanchez MD Referring Provider Active St art: May 02, 2025 End: May 02, 2025 Dr. Giacomo Philip MD Attending Provider Active Start: May 02, 2025 End: May 02, 2025 Team Status: Inactive Member Role/Relationship Status Dates Dr. Giacomo Philip MD Attending Provider Active Start: May 08, 2025 End: May 08, 2025 Team Status: Inactive Member Role/Relationship Status Dates Dr. Giacomo Philip MD Attending Provider Active Start: May 16, 2025 End: May 16, 2025 Team Status: Active Member Role/Relationship Status Dates Dr. Aria LACEY MD Primary Care Provider Active Team Status: Inactive Member Role/Relationship Status Dates Dr. Aria Sanchez MD Primary Care Provider Active Start: April 23, 2025 End: April 23, 2025 Dr. Aria Sanchez MD Attending Provider Active St art: April 23, 2025 End: April 23, 2025 Dr. Aria Sanchez MD Referring Provider Active St art: April 23, 2025 End: April 23, 2025 Team Status: Inactive Member Role/Relationship Status Dates Dr. Aria Sanchez MD Referring Provider Active St art: May 02, 2025 End: May 02, 2025 Dr. Giacomo Philip MD Attending Provider Active Start: May 02, 2025 End: May 02, 2025 Team Status: Inactive Member Role/Relationship Status Dates Dr. Giacomo Philip MD Attending Provider Active Start: May 08, 2025 End: May 08, 2025 Team Status: Inactive Member Role/Relationship Status Dates Dr. Giacomo Philip MD Attending Provider Active Start: May 16, 2025 End: May 16, 2025 Team Status: Inactive Member Role/Relationship Status Dates Dr. Godwin Lawrence MD Attending Provider Active Start: May 16, 2025 End: May 16, 2025 Dr. Rufina Godinez MD Referring Provider Active Start: May 16, 2025 End: May 16, 2025 Team Status: Active Member Role/Relationship Status Dates Dr. Godwin Lawrence MD Attending Provider Active Start: May 16, 2025 Dr. Godwin Lawrence MD Referring Provider Active Start: May 16, 2025 Dr. Aria LACEY MD Primary Care Provider Active Start: May 16, 2025 Team Status: Active Member Role/Relationship Status Dates Dr. Godwin Lawrence MD Attending Provider Active Start: May 21, 2025 Dr. Godwin Lawrence MD Referring Provider Active Start: May 21, 2025 Dr. Aria Sanchez MD Primary Care Provider Active Start: May 21, 2025 Team Status: Inactive Member Role/Relationship Status Dates Dr. Giacomo Philip MD Attending Provider Active Start: May 24, 2025 End: May 24, 2025 Dr. Aria Sanchez MD Primary Care Provider Active Start: May 24, 2025 End: May 24, 2025 Dr. Aria Sanchez MD Referring Provider Active St art: May 24, 2025 End: May 24, 2025 Team Status: Inactive Member Role/Relationship Status Dates Dr. Aria Sanchez MD Primary Care Provider Active Start: May 28, 2025 End: May 28, 2025 Dr. Aria Sanchez MD Referring Provider Active St art: May 28, 2025 End: May 28, 2025 Dr. Giacomo Philip MD Attending Provider Active Start: May 28, 2025 End: May 28, 2025 Team Status: Inactive Member Role/Relationship Status Dates Ayla Ayoub CONTROL AREA OPERATOR, CONTROL AREA OPERATOR-C Attending Provider Active Start: May 28, 2025 End: May 28, 2025 Dr. Aria Sanchez MD Primary Care Provider Active Start: May 28, 2025 End: May 28, 2025 Dr. Aria Sanchez MD Referring Provider Active St art: May 28, 2025 End: May 28, 2025 Team Status: Inactive Member Role/Relationship Status Dates Dr. Godwin Lawrence MD Attending Provider Active Start: May 21, 2025 End: May 21, 2025 Dr. Godwin Lawrence MD Referring Provider Active Start: May 21, 2025 End: May 21, 2025 Dr. Aria Sanchez MD Primary Care Provider Active Start: May 21, 2025 End: May 21, 2025 Team Status: Active Member Role/Relationship Status Dates Dr. Aria Sanchez MD Primary care physician Active Team Status: Active Member Role/Relationship Status Dates Dr. Aria Sanchez MD Primary care physician Active Start: February 28, 2025 Kamilah Barrow Referring Provider Active Start: 2024 Kamilah Barrow Nurse Practitioner Active Start: 2024 Dr. Kameron Gamez MD Attending physician Active Start: February 28, 2025 Team Status: Inactive Member Role/Relationship Status Dates Dr. Aria Sanchez MD Primary care physician Active Start: March 01, 2025 End: March 01, 2025 Dr. Kameron Gamez MD Attending physician Active Start: March 01, 2025 End: March 01, 2025 Team Status: Inactive Member Role/Relationship Status Dates Dr. Aria Sanchez MD Primary care physician Active Start: March 06, 2025 End: March 06, 2025 Dr. Aria Sanchez MD Referring Provider Active St art: March 06, 2025 End: March 06, 2025 Dr. Rufina Godinez MD Attending physician Active Start: March 06, 2025 End: March 06, 2025 Team Status: Inactive Member Role/Relationship Status Dates Dr. Aria Sanchez MD Primary care physician Active Start: March 06, 2025 End: March 06, 2025 Dr. Rufina Godinez MD Attending physician Active Start: March 06, 2025 End: March 06, 2025 Dr. Rufina Godinez MD Referring Provider Active Start: March 06, 2025 End: March 06, 2025 Team Status: Inactive Member Role/Relationship Status Dates Dr. Aria Sanchez MD Primary care physician Active Start: March 07, 2025 End: March 07, 2025 Dr. Aria Sanchez MD Referring Provider Active St art: March 07, 2025 End: March 07, 2025 Dr. Giacomo Philip MD Attending physician Active Start: March 07, 2025 End: March 07, 2025 Team Status: Inactive Member Role/Relationship Status Dates Dr. Aria Sanchez MD Primary care physician Active Start: March 13, 2025 End: March 13, 2025 Dr. Aria Sanchez MD Referring Provider Active St art: March 13, 2025 End: March 13, 2025 Dr. Giacomo Philip MD Attending physician Active Start: March 13, 2025 End: March 13, 2025 Team Status: Inactive Member Role/Relationship Status Dates Dr. Aria Sanchez MD Primary care physician Active Start: March 18, 2025 End: March 18, 2025 Dr. Kameron Gamez MD Attending physician Active Start: March 18, 2025 End: March 18, 2025 Dr. Kameron Gamez MD Referring Provider Active S tart: March 18, 2025 End: March 18, 2025 Team Status: Inactive Member Role/Relationship Status Dates Dr. Aria Sanchez MD Primary care physician Active Start: March 22, 2025 End: March 22, 2025 Dr. Aria Sanchez MD Referring Provider Active St art: March 22, 2025 End: March 22, 2025 Dr. Rufina Godinez MD Attending physician Active Start: March 22, 2025 End: March 22, 2025 Team Status: Inactive Member Role/Relationship Status Dates Dr. Aria Sanchez MD Primary care physician Active Start: March 26, 2025 Dr. Shelli Piper MD Attending physician Active Start: March 26, 2025 Team Status: Inactive Member Role/Relationship Status Dates Dr. Aria Sanchez MD Primary care physician Active Start: March 28, 2025 End: March 28, 2025 Dr. Aria Sanchez MD Referring Provider Active St art: March 28, 2025 End: March 28, 2025 Dr. Giacomo Philip MD Attending physician Active Start: March 28, 2025 End: March 28, 2025 Team Status: Active Member Role/Relationship Status Dates Dr. Aria Sanchez MD Primary care physician Active Start: April 02, 2025 End: April 02, 2025 Dr. Kameron Gamez MD Attending physician Active Start: April 02, 2025 End: April 02, 2025 Dr. Tato Venegas MD Referring Provider Active Start: April 02, 2025 End: April 02, 2025 Team Status: Inactive Member Role/Relationship Status Dates Dr. Aria Sanchez MD Primary care physician Active Start: April 10, 2025 End: April 11, 2025 Dr. Rufina Godinez MD Attending physician Active Start: April 10, 2025 End: April 11, 2025 Dr. Rufina Godinez MD Referring Provider Active Start: April 10, 2025 End: April 11, 2025 Dr. Giacomo Philip MD Nurse Practitioner Active Start: April 10, 2025 End: April 11, 2025 Team Status: Active Member Role/Relationship Status Dates Dr. Aria Sanchez MD Primary care physician Active Start: April 10, 2025 Dr. Rufina Godinez MD Referring Provider Active Start: April 10, 2025 Dr. Rufian Godinez MD Nurse Practitioner Active Start: April 10, 2025 Dr. Giacomo Philip MD Attending physician Active Start: April 10, 2025 Team Status: Active Member Role/Relationship Status Dates Dr. Aria Sanchez MD Primary care physician Active Start: April 10, 2025 Dr. Rufina Godinez MD Attending physician Active Start: April 10, 2025 Dr. Rufina Godinez MD Referring Provider Active Start: April 10, 2025 Dr. Rufina Godinez MD Nurse Practitioner Active Start: April 10, 2025 Team Status: Active Member Role/Relationship Status Dates Dr. Aria Sanchez MD Primary care physician Active Start: April 11, 2025 Dr. Rufina Godinez MD Admitting physician Active Start: April 11, 2025 Dr. Rufina Godinez MD Referring Provider Active Start: April 11, 2025 Dr. Rufina Godinez MD Nurse Practitioner Active Start: April 11, 2025 Dr. Giacomo Philip MD Nurse Practitioner Active Start: April 11, 2025 Yajaira COOK PA-C Attending physician Active Start: April 11, 2025 Team Status: Active Member Role/Relationship Status Dates Dr. Aria Sanchez MD Primary care physician Active Start: April 11, 2025 Dr. Rufina Godinez MD Admitting physician Active Start: April 11, 2025 Dr. Rufina Godinez MD Referring Provider Active Start: April 11, 2025 Dr. Rufina Godinez MD Nurse Practitioner Active Start: April 11, 2025 Dr. Giacomo Philip MD Attending physician Active Start: April 11, 2025 Dr. Giacomo Philip MD Nurse Practitioner Active Start: April 11, 2025 Team Status: Inactive Member Role/Relationship Status Dates Dr. Aria Sanchez MD Primary care physician Active Start: April 18, 2025 End: April 18, 2025 Dr. Aria Sanchez MD Referring Provider Active St art: April 18, 2025 End: April 18, 2025 Dr. Giacomo Philip MD Attending physician Active Start: April 18, 2025 End: April 18, 2025 Team Status: Inactive Member Role/Relationship Status Dates Dr. Aria Sanchez MD Primary care physician Active Start: April 19, 2025 End: April 19, 2025 Dr. Aria Sanchez MD Attending physician Active S tart: April 19, 2025 End: April 19, 2025 Dr. Aria Sanchez MD Referring Provider Active St art: April 19, 2025 End: April 19, 2025 Team Status: Inactive Member Role/Relationship Status Dates Dr. Aria Sanchez MD Primary care physician Active Start: April 23, 2025 End: April 23, 2025 Dr. Aria Sanchez MD Attending physician Active S tart: April 23, 2025 End: April 23, 2025 Dr. Aria Sanchez MD Referring Provider Active St art: April 23, 2025 End: April 23, 2025 Team Status: Inactive Member Role/Relationship Status Dates Dr. Aria Sanchez MD Primary care physician Active Start: April 24, 2025 End: April 24, 2025 Dr. Aria Sanchez MD Referring Provider Active St art: April 24, 2025 End: April 24, 2025 Dr. Rufina Godinez MD Attending physician Active Start: April 24, 2025 End: April 24, 2025 Team Status: Inactive Member Role/Relationship Status Dates Dr. Aria Sanchez MD Primary care physician Active Start: April 26, 2025 End: April 26, 2025 Dr. Aria Sanchez MD Referring Provider Active St art: April 26, 2025 End: April 26, 2025 Dr. Giacomo Philip MD Attending physician Active Start: April 26, 2025 End: April 26, 2025 Team Status: Inactive Member Role/Relationship Status Dates Dr. Aria Sanchez MD Referring Provider Active St art: May 02, 2025 End: May 02, 2025 Dr. Giacomo Philip MD Attending physician Active Start: May 02, 2025 End: May 02, 2025 Team Status: Inactive Member Role/Relationship Status Dates Dr. Giacomo Philip MD Attending physician Active Start: May 08, 2025 End: May 08, 2025 Team Status: Inactive Member Role/Relationship Status Dates Dr. Giacomo Philip MD Attending physician Active Start: May 16, 2025 End: May 16, 2025 Team Status: Inactive Member Role/Relationship Status Dates Dr. Godwin Lawrence MD Attending physician Active Start: May 16, 2025 End: May 16, 2025 Dr. Rufina Godinez MD Referring Provider Active Start: May 16, 2025 End: May 16, 2025 Team Status: Active Member Role/Relationship Status Dates Dr. Godwin Lawrence MD Attending physician Active Start: May 16, 2025 Dr. Godwin Lawrence MD Referring Provider Active Start: May 16, 2025 Dr. Aria LACEY MD Primary care physician Active Start: May 16, 2025 Team Status: Inactive Member Role/Relationship Status Dates Dr. Godwin Lawrence MD Attending physician Active Start: May 21, 2025 End: May 21, 2025 Dr. Godwin Lawrence MD Referring Provider Active Start: May 21, 2025 End: May 21, 2025 Dr. Aria Sanchez MD Primary care physician Active Start: May 21, 2025 End: May 21, 2025 Team Status: Inactive Member Role/Relationship Status Dates Dr. Giacomo Philip MD Attending physician Active Start: May 24, 2025 End: May 24, 2025 Dr. Aria Sanchez MD Primary care physician Active Start: May 24, 2025 End: May 24, 2025 Dr. Aria Sanchez MD Referring Provider Active St art: May 24, 2025 End: May 24, 2025 Team Status: Inactive Member Role/Relationship Status Dates Dr. Aria Sanchez MD Primary care physician Active Start: May 28, 2025 End: May 28, 2025 Dr. Aria Sanchez MD Referring Provider Active St art: May 28, 2025 End: May 28, 2025 Dr. Giacomo Philip MD Attending physician Active Start: May 28, 2025 End: May 28, 2025 Team Status: Inactive Member Role/Relationship Status Dates Ayla Ayoub CONTROL AREA OPERATOR, CONTROL AREA OPERATOR-C Attending physician Active Start: May 28, 2025 End: May 28, 2025 Dr. Aria Sanchez MD Primary care physician Active Start: May 28, 2025 End: May 28, 2025 Dr. Aria Sanchez MD Referring Provider Active St art: May 28, 2025 End: May 28, 2025 Team Status: Inactive Member Role/Relationship Status Dates Dr. Aria Sanchez MD Primary care physician Active Start: June 20, 2025 End: June 20, 2025 Dr. Aria Sanchez MD Referring Provider Active St art: June 20, 2025 End: June 20, 2025 Dr. Giacomo Philip MD Attending physician Active Start: June 20, 2025 End: June 20, 2025 Source Comments (unrecognize d section and content) In the event this informatio n is protected by the Federal Confidentiality of Alcohol and Drug Abuse Patient Records regulations: The Federal rules restrict any use of the information to criminally investigate or prosecute any alcohol or drug abuse patient.[facility] HealthIn the event this information is protected by the Federal Confidentiality of Alcohol and Drug Abuse Patient Records regulations: The Federal rules restrict any use of the information to criminally investigate or prosecute any alcohol or drug abuse patient.Prem[facility] HealthIn the event this information is protected by the Federal Confidentiality of Alcohol and Drug Abuse Patient Records regulations: The Federal rules restrict any use of the information to criminally investigate or prosecute any alcohol or drug abuse patient.[facility] HealthIn the event this information is protected by the Federal Confidentiality of Alcohol and Drug Abuse Patient Records regulations: The Federal rules restrict any use of the information to criminally investigate or prosecute any alcohol or drug abuse patient.Prem[facility] HealthIn the event this information is protected by the Federal Confidentiality of Alcohol and Drug Abuse Patient Records regulations: The Federal rules restrict any use of the information to criminally investigate or prosecute any alcohol or drug abuse patient.[facility] Reason for Visit (unrecogniz ed section and content) Reason Comments Appointment Reason Comments Radiology CT Specialty Diagnoses / Procedures Referred By Contac t Referred To Contact CT IMAGING Diagnoses SDH (subdural hematoma) (HCC) Procedures CT BRAIN WO IVCON CT HEAD/BRAIN W/O CONTRAST MATERIAL Aris Marin APRN.NURSING CARE ATTENDANT [address] [place] [address] Ct Imaging [facility]95 Referral ID Status Reason Start Date Expiration Date V isits Requested Visits Authorized [id number] Closed Auto-Generate d Referral 03/10/2024 04/09/2025 1 1 Reason Comments Established Patient Specialty Diagnoses / Procedures Referred By Contac t Referred To Contact CT IMAGING Diagnoses Subdural hematoma (HCC) Procedures CT BRAIN WO IVCON CT HEAD/BRAIN W/O CONTRAST MATERIAL Radha Mosley APRN.NURSING CARE ATTENDANT [address] [place] [address] Ct Imaging [facility]95 Referral ID Status Reason Start Date Expiration Date V isits Requested Visits Authorized [id number] Closed Auto-Generate d Referral 04/12/2024 05/12/2025 1 1 Reason Comments Follow Up INFORMATION SOURCE (unrecogn ized section and content) DATE CREATED AUTHOR 05/08/2024 [facility] DATE CREATED AUTHOR AUTHOR'S ORGANIZ ATION 10/29/2024 [facility] DATE CREATED AUTHOR AUTHOR'S ORGANIZ ATION 03/29/2025 [facility] DATE CREATED AUTHOR AUTHOR'S ORGANIZ ATION 07/28/[address] [facility] FOR RECORDS PERTAINING TO PATIENTS WHO [...] BE BASED ON THE PRIMARY CLINICAL RECORDS. [facility] [employer], [facility]. provides no warranty or guarantee of the accuracy or completeness of information in this document.
[2025-07-30] MEDS: Lactated Ringers 1,000 ML 15 ML IV (06:15)
--- NOTE | 2025-07-30 06:44 | PRE.ANES_ITS ---
ASA Classification* ASA Classification ASA Classification: 3 Assessment & Plan Anesthesia* Anesthesia Assessment Anesthesia Assessment: Discussed sedation and/or anesthesia options, risks, benefits, and alternatives with patient/parents/legal guardian/POA. Questions invited. The patient/parents/legal guardian/POA seems to understand and agrees to proceed with anesthesia plan. Reviewed the physical assessment, medical history, allergy history and patient home medications list prior to surgery/procedure/anesthetic and documented any changes. Performed airway and anesthesia risk assessments. Anesthesia Type Anesthesia Type: General (Patient has mild aortic stenosis. Avoid increased heart rate and decrease blood pressure. Phenylephrine is drug of choice.) History Source History Obtained from:: Patient and Chart Anesthesia Focused Assessment* Temperature: 97.5 F Pulse Rate: 69 Blood Pressure: 138/76 Respiratory Rate: 16 Pulse Ox: 98 Oxygen Delivery Method: Room Air Airway Assessment Mouth opens: >3 cm Mallampati Score: I Teeth Condition: Intact Neck Range of motion (ROM): Full ROM Labs Anesthesia Preop lab: CBC WBC, (4.4-11.0) 4.8 K/mm3 05/16/25, 10:34 RBC, (4.2-5.4) 4.31 M/mm3 05/16/25, 10:34 Hgb, (12.0-15.0) 14.3 g/dL 05/16/25, 10:34 Hct, (37-47) 42.8 % 05/16/25, 10:34 Plt Count, (150-450) 237 K/mm3 05/16/25, 10:34 CHEMISTRY Potassium, (3.3-5.1) 4.5 mmol/L 05/16/25, 10:34 Sodium, (133-145) 137 mmol/L 05/16/25, 10:34 BUN, (4-19) 11 mg/dL 05/16/25, 10:34 Creatinine, (0.70-1.20) 1.06 mg/dL 05/16/25, 10:34 Glucose, (70-99) 110 mg/dL H 05/16/25, 10:34 TSH, (0.300-4.200) 1.750 uIU/mL 07/18/25, 09:22 COAG PT, (11.7-14.9) 14.2 SECONDS 03/09/24, 16:36 Pre-Assessment Diagnosis/Proposed Procedure Planned Operative Procedure(s): BILATERAL EXCHANGE OF TEST DESIGNER FOR PERMANET BREAST IMPLANT Anesthesia History 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 When Was Last Pacemaker Check QUESTION #4 FULL TEXT: You/Your Family Experience fever (hyperthermia) with Anesthesia Last Oral Intake Last Oral intake: Last Oral Intake NPO since 04:00 07/30/25 06:28 Meds taken in AM with sips of Yes 07/30/25 06:28 water? Meds patient instructed to see mar 07/30/25 06:28 take am of surgery Any additional information?: Yes Meds taken in AM with sips of water?: Yes PONV PONV - geothermal operations manager: PONV - geothermal operations manager Female Yes 07/16/25 09:19 HX of Motion Sickness No 07/16/25 09:19 HX of N/V After Surgery Yes 07/16/25 09:19 Non-Smoker Yes 07/16/25 09:19 Duration of Surgery greater Yes 07/16/25 09:19 than 60 minutes Number of Risk Factors 4 07/16/25 09:19 PONV Score Severe Risk 07/16/25 09:19 Height & Weight Height & Weight: Anesthesia: Height & Weight Height 5 ft 4 in 07/30/25 06:28 Weight: 65.771 kg 07/30/25 06:28 Body Mass Index (BMI) 24.9 07/30/25 06:28 Respiratory Assessment Respiratory Assessment - geothermal operations manager: Respiratory Tract Infection Hx - geothermal operations manager Hx Respiratory Tract Infection No 07/22/25 16:53 STOP Sleep Apnea STOP Sleep Apnea - geothermal operations manager: STOP Sleep Apnea - geothermal operations manager Hx Hypertension Yes: CONTROLLED ON MED 07/22/25 16:53 Hx Sleep Apnea No 07/22/25 16:53 CPAP No 07/22/25 16:53 BIPAP Do you snore loudly (louder No 07/16/25 09:19 than talking or can be heard Do you often feel tired/ No 07/16/25 09:19 fatigued/ sleepy during daytime? Has anyone observed you stop No 07/16/25 09:19 breathing during sleep? STOP Results Negative 07/16/25 09:19 QUESTION #5 FULL TEXT : Do you snore loudly (louder than talking or can be heard through closed doors)? 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 Specify any problems Hx of Preganancy in last 3 No 07/16/25 09:19 Months Nurse Filling Out Transfusion [id number] 07/16/25 09:19 & Questions: Date: 07/16/25 07/16/25 09:19 Time: 09:07/16/25 09:19 Patient unable to answer at this time (ie. confused, unrespo /Reproduction History /Reproductive History - geothermal operations manager: /Reproductive Hx- geothermal operations manager Hx Now No 07/16/25 09:19 Gestational Age (in weeks): EDC: Hx Hx Para Hx Section SAB No 07/22/25 16:53 Active Medications Active Medications: Current Medications Generic Name Dose Route Start Last Admin Trade Name Freq PRN Reason Stop Dose Admin Cefazolin Sodium 2 gm/ Sodium 110 mls @ 200 mls/hr 07/30/25 07:30 Chloride IV 07/30/25 08:02 INTRAOP ONE Lactated Ringer's 1,000 mls @ 15 mls/hr 07/30/25 06:15 07/30/25 06:15 IV 15 mls/hr .Q48H JOYCELYN Administration PFSH Medical History Encounter for education Wears hearing aid Wears glasses Post-menopausal Cancer Alcohol use Thyroid disease High cholesterol Injury of back Injury of head and neck Syncope Gastric reflux Former smoker History of echocardiogram History of stress test Cardiology follow-up encounter Laceration of left middle finger Status post placement of implantable loop recorder Syncope and collapse Syncope Fall Hematoma of scalp Subdural hemorrhage Non-rheumatic aortic stenosis Chest tightness Right bundle branch block (RBBB) GERD (gastroesophageal reflux disease) Cancer of right breast Hyperlipidemia Arthritis Essential (primary) hypertension Home Medications ?Medication ?Instructions ?Recorded ?Last Taken ?Type [id number] 8 mg-folic 400 1 ea PO DAILY SUPPLE MENT 05/27/16 07/29/25 History mcg-K 50 mcg-lutein 300 mcg tablet atorvastatin 40 mg tablet 40 mg PO QHS CHOLESTEROL #90 tabs 07/12/24 07/29/25 Rx famotidine-Ca carb-mag hydrox 10 1 tab PO DAILY PRN in digestion 07/12/24 07/29/25 History mg-800 mg-165 mg chewable tablet (Pepcid Complete) metoprolol succinate 25 mg 25 mg PO DAILY BP #90 tabs 07/12/24 07/30/25 04:00 Rx tablet,extended release 24 hr (Toprol XL) levothyroxine 75 mcg tablet 75 mcg PO DAILY THYROID 07/30/25 History lactobacillus combination no.9 4 4,000 mmu cells PO QD AY 05/16/25 07/29/25 History billion cell capsule (Adult 50 Plus Probiotic) Allergy/AdvReac Type Severity Reaction Status Date / Time bupropion HCl (From Zyban) Allergy Severe Hives Verified 07/30/25 06:26 red dye Allergy Mild Itching Verified 07/30/25 06:26 bupropion (From Zyban) Allergy Hives Verified 07/30/25 06:26 hydrocodone (From Vicodin) AdvReac N/V Verified 07/30/25 06:26 hydromorphone AdvReac constipatio Verified 07/30/25 06:26 n Family History Brother , age 49 Cancer lung Father Heart disease Mother Dementia Surgical History History of left mastectomy Hx of neck surgery History of breast reconstruction H/O section History of appendectomy History of mastectomy Social History Smoking Status: Former smoker quit date: 09/26/04 pack-years: 40 Tobacco: How many years used: 40 how long ago did patient quit smokin years ago second hand exposure: Yes alcohol intake: current alcohol intake frequency: 0-2 drinks per day Alcohol type: wine Review of Systems (Anesthesia) ROS Narrative System reviewed and no additional complaints, except as documented.
--- NOTE | 2025-07-30 07:08 | PCM.HP.STD ---
HPI - General HPI Narrative BERRY BLUM, is a 79 F who presents today for permanent silicone implant for the left breast with Dr. Philip. PMH significant for left breast cancer s/p skin sparing mastectomy. Caprini score of 6. Right breast ultrasound showed partial implant rupture. She does not wish for right breast intervention at this time. Date of Procedure: 04/10/25 Pre-Operative Diagnosis: Left breast cancer Post-Operative Diagnosis: Same Surgery/Procedure Performed: 1) Intraoperative assessment of mastectomy flaps with SPY (CPT: 58768) 2) Prepectoral placement of left breast tissue supervisor of officials with acellular dermal matrix (CPT: 70774) 3) Use of acellular dermal matrix (Flex HD) to reinforce/stabilize tissue supervisor of officials in the breast pocket She denies changes to medical health since last visit. Denies fever, chills, URI, dental infection, rashes. [facility] Medical History Encounter for education Wears hearing aid Wears glasses Post-menopausal Cancer Alcohol use Thyroid disease High cholesterol Injury of back Injury of head and neck Syncope Gastric reflux Former smoker History of echocardiogram History of stress test Cardiology follow-up encounter Laceration of left middle finger Status post placement of implantable loop recorder Syncope and collapse Syncope Fall Hematoma of scalp Subdural hemorrhage Non-rheumatic aortic stenosis Chest tightness Right bundle branch block (RBBB) GERD (gastroesophageal reflux disease) Cancer of right breast Hyperlipidemia Arthritis Essential (primary) hypertension Home Medications ?Medication ?Instructions ?Recorded ?Last Taken ?Type [id number]-nzbp-gnnf 8 mg-folic 400 1 ea PO DAILY SUPPLEMENT 05/27/16 07/29/25 History mcg-K 50 mcg-lutein 300 mcg tablet atorvastatin 40 mg tablet 40 mg PO QHS CHOLESTEROL #90 tabs 07/12/24 07/29/25 Rx famotidine-Ca carb-mag hydrox 10 1 tab PO DAILY PRN indigestion 07/12/24 07/29/25 History mg-800 mg-165 mg chewable tablet (Pepcid Complete) metoprolol succinate 25 mg 25 mg PO DAILY BP #90 tabs 07/12/24 07/30/25 04:00 Rx tablet,extended release 24 hr (Toprol XL) levothyroxine 75 mcg tablet 75 mcg PO DAILY THYROID 03/27/25 07/30/25 History lactobacillus combination no.9 4 4,000 mmu cells PO QDAY 05/16/25 07/29/25 History billion cell capsule (Adult 50 Plus Probiotic) Allergy/AdvReac Type Severity Reaction Status Date / Time bupropion HCl (From Zyban) Allergy Severe Hives Verified 07/30/25 06:26 red dye Allergy Mild Itching Verified 07/30/25 06:26 bupropion (From Zyban) Allergy Hives Verified 07/30/25 06:26 hydrocodone (From Vicodin) AdvReac N/V Verified 07/30/25 06:26 hydromorphone AdvReac constipatio Verified 07/30/25 06:26 n Family History Brother , age 49 Cancer lung Father Heart disease Mother Dementia Surgical History History of left mastectomy Hx of neck surgery History of breast reconstruction H/O section History of appendectomy History of mastectomy Social History Smoking Status: Former smoker quit date: 09/26/04 pack-years: 40 Tobacco: How many years used: 40 how long ago did patient quit smokin years ago second hand exposure: Yes alcohol intake: current alcohol intake frequency: 0-2 drinks per day Alcohol type: wine ROS ROS Narrative General: Denies fever, chills HEENT: Denies headaches, vision changes, sore throat Cardio: Denies chest pain, leg edema Pulmonary: Denies shortness of pain, cough, wheezing GI: Denies nausea, vomiting, diarrhea Vital Signs Vital Signs Vital Signs: 07/30/25 06:28 07/30/25 06:28 07/30/25 06:52 Temperature 97.5 F L 97.5 F L Temperature Source Temporal Pulse Rate 69 69 Respiratory Rate 16 16 Respiratory Pattern Normal Blood Pressure 138/76 H 138/76 H Blood Pressure Mean 96 Blood Pressure Source Monitor Blood Pressure Position Semi-Fowlers Blood Pressure Location Right Arm Pulse Ox 98 98 Oxygen Delivery Method Room Air Room Air Weight Weight: 145 lb Body Mass Index (BMI) 24.9 Physical Exam Narrative Afebrile/VSS. left breast incision has healed from the skin sparing mastectomy. No drainage or concerns of infection at this time. No redness. Nontender to palpation. 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 No abdominal distention Speaks in full sentences without respiratory distress. No new rashes. 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 Chemical DVT ppx postoperatively Ancef for surgical prophylaxis.
[2025-07-30] MEDS: Cefazolin 1 GM/5 ML Vial 2 GM IV (07:53)
[2025-07-30] MEDS: Lactated Ringers 1,000 ML 1000 ML IV (07:59)
[2025-07-30] MEDS: Lidocaine 1% (5 ml sdv) 5 ML Vial IV (08:00)
[2025-07-30] MEDS: Heparin Injection (Vial) 5,000 UNIT/ML VIAL 5000 UNIT IV (08:10)
[2025-07-30] MEDS: Bupiv/Epi 0.25% 30 ML Vial (08:30)
[2025-07-30] MEDS: fentaNYL 100 MCG/2 ML Ampul IV (08:54)
--- NOTE | 2025-07-30 09:37 | PCM.OPRPT ---
Operative Report (Standard) Operative Information Date of Procedure: 07/30/25 Pre-Operative Diagnosis: Status post left breast mastectomy and tissue mobile paint specialist placement/subsequent expansion Post-Operative Diagnosis: Same Surgery/Procedure Performed: 1) Removal left breast tissue mobile paint specialist with placement of permanent silicone implant, 400 cc left side 2) Capsulorrhaphy left side fleet maintenance manager: Yes Hydraulic Lift Driver: Magaly Keith Tasks completed by human resources executive assistant: Closing Type of Anesthesia: General/Supplemental (15 cc of quarter percent Marcaine with 1-200,000 epinephrine) RN Documented Start/Stop Times: Operation Date: 07/30/25 07:30 Case Time Into Pre-Op 07/30/25 06:00 Out of Pre-Op 07/30/25 07:46 Anesthesia Start 07/30/25 07:53 Into Room 07/30/25 07:53 Procedure Start 07/30/25 08:25 Procedure Start Time: 07:53 Procedure Stop Time: 09:45 Select all DRAINS/GRAFTS/IMPLANTS that apply: Implanted device (Left breast smooth round silicone implant 400 cc ([place]) ) Implanted device details: [place] memory gel breast implant smooth round moderate plus profile, reference number [id number] , serial number [id number] Estimated Blood Loss: 10 cc Specimen collected: Yes Description of specimen(s) removed: Tissue mobile paint specialist sent for gross identification Description of surgery: Indications: Nat Abad is a delightful 79-year-old female who underwent stage I of implant-based reconstruction with a tissue mobile paint specialist placement and subsequent expansion on the left side. She presents today for possible capsulorrhaphy and removal of the left breast tissue mobile paint specialist and exchange for a permanent silicone implant. She understands the risks, benefits, and alternatives of the procedure. The patient did not want any procedures done on the right breast. Procedure details: Patient was correctly identified in preoperative holding and marked. She was taken back to the operating room where she was administered general anesthesia and prepped and draped in sterile fashion. A timeout was performed. A 10 blade scalpel was used to make a inframammary fold incision and dissection was carefully taken in an oblique angle superiorly with Bovie electrocautery down to the implant capsule. The tissue mobile paint specialist was removed, and was noted to be intact. The pocket looked clean and healthy, with most of the acellular dermal matrix incorporated, except for the lateral portion which was unincorporated and excised with Bovie electrocautery. Hemostasis was obtained with the Bovie. The breast implant sizers were placed and the patient was sat up. It was deemed that the unincorporated acellular dermal matrix in the lateral aspect of the breast capsule requiring excision indicated a lateral capsulorrhaphy, which was performed by tightening the capsule with 2-0 PDS sutures from the capsule to the chest wall. The patient was sat up and the implant position was better and delgadillo on the medial aspect of the left breast following the capsulorrhaphy. Irrisept was used to irrigate the pocket and copious months normal saline. A 400 cc silicone smooth round implant was then opened and inserted with minimal touch technique (new gloves and Irrisept irrigation over the implant and in the pocket, along with clean instruments). The capsule was then closed with 3-0 PDS suture with a malleable used to protect the implant, and the skin was then closed with 3-0 Monocryl deep dermal sutures followed by 3-0 Monocryl running subcuticular sutures and Prineo tape. Patient tolerated procedure well. All counts were correct at the end of the case. The patient was awakened and taken the PACU in stable condition. Postoperative plan: Patient will be admitted overnight for pain control and out of her preference for observation. We will continue chemical and mechanical DVT prophylaxis. Plan for 1 week of antibiotics. Surgical Findings: Unincorporated lateral acellular dermal matrix requiring excision and then capsulorrhaphy Complications Complications: No
--- NOTE | 2025-07-30 10:01 | PCM.POST.ANE ---
Anesthesia: Postop Eval I Current Vital Signs Temperature: 97 F Pulse Rate: 74 Blood Pressure: 124/74 Respiratory Rate: 16 Pulse Ox: 98 Oxygen Delivery Method: Room Air Assessment Airway patent: Yes Spontaneous unlabored respirations: Yes Mental status: Awake and Calm nausea: No Vomiting: No Anesthesia Complication: No Fluid Hydration Crystalloid volume administer (ml): 1,000 Total IV fluid infused: 1,000 Progress Note Anesthesia document: Postop Eval 1 completed: Yes
--- NOTE | 2025-07-30 12:29 | POSTOPAN2_ITS ---
Anesthesia Postop Eval I Sum Postop Eval Completion status Anesthesia document: Postop Eval 1 completed: Yes Anesthesia Postop Eval I Summary Anesthesia Postop Eval I Summary: Anesthesia Postop Eval I: Assessment Summary Airway patent Yes 07/30/25 10:02 TRAINING REPRESENTATIVE.[email or web address] Spontaneous unlabored Yes 07/30/25 10:02 TRAINING REPRESENTATIVE.FATOUMATA respirations Mental status Awake,Calm 07/30/25 10:02 TRAINING REPRESENTATIVE.JEFFERSONOBJacqueyln nausea No 07/30/25 10:02 TRAINING REPRESENTATIVE.FATOUMATA Vomiting No 07/30/25 10:02 TRAINING REPRESENTATIVE.JEFFERSONOBJacquelyn Anesthesia Postop Eval I: Fluid Summary Crystalloid volume administer 1,000 07/30/25 10:02 TRAINING REPRESENTATIVE.SKOBY (ml) Colloids volume administered ( ml) Blood Product volume administered (ml) Total IV fluid infused 1,000 07/30/25 10:02 TRAINING REPRESENTATIVE.FATOUMATA Anesthesia Postop Eval I: Summary Notes Anesthesia Complication No 07/30/25 10:02 TRAINING REPRESENTATIVE.FATOUMATA Anesthesia Complication Comment: Post-operative progress note Anesthesia: Postop Eval II Evaluation Mental status: Awake and Calm Pain Level: 2 nausea: No Vomiting: No Complications Anesthesia Complication: No
--- NOTE | 2025-07-30 12:29 | PCM.POSTANE2 ---
Anesthesia Postop Eval I Sum Postop Eval Completion status Anesthesia document: Postop Eval 1 completed: Yes Anesthesia Postop Eval I Summary Anesthesia Postop Eval I Summary: Anesthesia Postop Eval I: Assessment Summary Airway patent Yes 07/30/25 10:02 METAL PRODUCTS VIEWER.[email or web address] Spontaneous unlabored Yes 07/30/25 10:02 METAL PRODUCTS VIEWER.FATOUMATA respirations Mental status Awake,Calm 07/30/25 10:02 METAL PRODUCTS VIEWER.JEFFERSONOBJacquelyn nausea No 07/30/25 10:02 METAL PRODUCTS VIEWER.FATOUMATA Vomiting No 07/30/25 10:02 METAL PRODUCTS VIEWER.JEFFERSONOBJacquelyn Anesthesia Postop Eval I: Fluid Summary Crystalloid volume administer 1,000 07/30/25 10:02 METAL PRODUCTS VIEWER.SKOBY (ml) Colloids volume administered ( ml) Blood Product volume administered (ml) Total IV fluid infused 1,000 07/30/25 10:02 METAL PRODUCTS VIEWER.FATOUMATA Anesthesia Postop Eval I: Summary Notes Anesthesia Complication No 07/30/25 10:02 METAL PRODUCTS VIEWER.FATOUMATA Anesthesia Complication Comment: Post-operative progress note Anesthesia: Postop Eval II Evaluation Mental status: Awake and Calm Pain Level: 2 nausea: No Vomiting: No Complications Anesthesia Complication: No
[2025-07-30] MEDS: 0.9% Normal Saline (1000mL) 1,000 ML 75 ML IV (15:54)
[2025-07-30] MEDS: Cefazolin 1 GM/50 ML BAG IV ×2 (17:18→22:45)
[2025-07-31] VITALS (7 sets, daily range): BP systolic 92–112; BP diastolic 46–57; PULSE 84–95; RESP 15–18; TEMP 36.7–37.5; O2SAT 92–95
[2025-07-31] MEDS: Cefazolin 1 GM/50 ML BAG IV (05:34)
[2025-07-31] MEDS: 0.9% Normal Saline (1000mL) 1,000 ML 75 ML IV (05:36)
--- NOTE | 2025-07-31 07:50 | DS.PCM_ITS ---
Providers Date of Admission: 07/30/25 Primary Care Physician: Dr. 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 Chemical DVT ppx postoperatively Ancef for surgical prophylaxis. Medications at Discharge Home Medications [id number] 8 mg-folic 400 mcg-K 50 mcg-lutein 300 mcg tablet 1 ea PO DAILY SUPPLEMENT 05/27/16 atorvastatin 40 mg tablet 40 mg PO QHS CHOLESTEROL #90 tabs 07/12/24 famotidine-Ca carb-mag hydrox 10 mg-800 mg-165 mg chewable tablet (Pepcid Complete) 1 tab PO DAILY PRN indigestion 07/12/24 metoprolol succinate 25 mg tablet,extended release 24 hr (Toprol XL) 25 mg PO D AILY BP #90 tabs 07/12/24 levothyroxine 75 mcg tablet 75 mcg PO DAILY THYROID 03/27/25 lactobacillus combination no.9 4 billion cell capsule (Adult 50 Plus Probiotic) 4,000 mmu cells PO QDAY 05/16/25 cephalexin 500 mg capsule 500 mg PO TID 7 days #21 caps 07/31/25 tramadol 50 mg tablet 50 mg PO BID PRN pain 5 days #10 tabs 07/31/25 Hospital Course Operations - (Left breast tissue wafer production worker removal and placement of permanent breast implant) Summary of Care Provided Hospital Course: On 07/31/2025 patient underwent above-mentioned surgery with Dr. Philip without apparent intraoperative complications. Patient awoke in PACU and awoke woke from anesthesia without issues she was watched overnight and then medical surgical floor. Patient was started on subcutaneous heparin intraoperatively and was started on mechanical DVT prophylaxis. There were no concerns overnight. She does not endorse any pain. she is ambulating well, tolerating oral intake, urinating and passing gas. She states there feels like a cut that brooks when she pees with scant spots of blood. She notes she has had UTIs before and this feels different. Likely from traumatic catheter insertion advised to monitor it. Patient meets discharge criteria today and will be discharged home with as needed pain medications with close follow-up. Physical Exam Narrative Afebrile/BP 96/55. Seen with Analisa black RN. Left breast with expected postoperative swelling without signs of fluid collection, no fluctuance, tenderness. Incision is clean dry and intact. No strikethrough bleeding on gauze. No ecchymosis. No leg edema. SCDs in place. Weight / BMI Weight Weight: 144 lb 15.968 oz Body Mass Index (BMI) 24.5 D/C Instructions DC O2, CPAP, BIPAP Needs Home O2 Discharge instructions: No Meaningful Use Info Meaningful Use Meaningful Use Diagnoses (Choose all that apply): None applicable Discharge Plan Admission Admit Date/Time: 07/30/25 09:48 Primary Reason for Your Visit: Left breast tissue wafer production worker removal and placement of permanent breast impla Attending Provider: Giacomo Philip Primary Care Provider: Cesar Sanchez Consulting Providers: Tato Venegas Instructions Additional Instructions / Restrictions: Operations Performed: Left breast tissue wafer production worker removal and placement of permanent breast implant Instructions for My Care at Home or Healthcare Facility The following instructions will help you know what to expect in the days following surgery. These are general instructions. Your surgeon and therapist may give you special instructions, which vary to some degree based on your specific procedure -- follow those as directed. Do not, however, hesitate to call if you have any questions or concerns. Dressing Care/Wound Care * Place gauze along incision and change daily. Okay to shower starting Tuesday with no soaking, scrubbing, submerging the incision. Let soap and water run over the incision and pat dry gently. Wear bra at all times. [ ] ? Activities * No strenuous activity, no heavy lifting. Take frequent walks. * For the first 4 weeks after surgery, try to balance your activity, allowing time for rest. * Avoid lifting, pushing, or pulling anything over 5 pounds. * Do not drive or operate heavy machinery within 24 hrs of surgery or while taking narcotic pain medication.? Pain Control/Medications * You are prescribed tramadol as needed for pain unrelieved by Tylenol or ibuprofen. Start taking aspirin 81 mg twice daily starting tomorrow 08/01/2025. You are also prescribed 7 days of oral Keflex. * Contact us with any concerns with increasing pain, new drainage, or other concerns. * If you received an anesthetic block, your hand or arm may be numb for several hours. You will be discharged to home with medications, including an oral pain medication (analgesic). Rest and elevation are still one of the most important factors for pain control. Take your pain medication as needed, but do not wait for the pain to become out of control. * For severe pain, you may take prescription pain medication as directed, but please note that this may also contain Tylenol (e.g. Percocet). Do not take more than 4000mg of Tylenol (acetaminophen) from all sources daily.? * Pain medication may cause some lethargy, nausea, and or constipation. You should not drive/operate dangerous machinery while taking these medications. If these or other symptoms become significantly problematic, please your surgeon's office. * If prescribed oral antibiotics (Keflex, Clindamycin, or others), please take prescription for full duration as instructed. You should not have any pills remaining once completed (refills are written for your convenience should the course need to be extended, but generally they are not required). Diet (what I can eat): Resume normal diet Follow up * We will follow-up with you Tuesday08/05/2025 our office will contact you with the time. Follow-up appointment reminders:? (A list of any scheduled appointments is at the end of this document)? At your earliest convenience, please call [phone] to confirm/schedule a follow-up appointment with [ ] in clinic. When to call your surgeon: * If any signs of surgical site infection develop: redness, pus, pain, increased swelling or foul odor at the incision site, fever, cold and clammy skin, or confusion. * Consistent temperature above 101?F (38.3?C). * The affected area gets swollen or much more painful. * You have excessive bleeding from surgical site (soaking through). If you experience difficulty breathing and/or shortness of breath, seek immediate medical attention. If experiencing any of the above complications or if you have any questions, call [phone] Discharge Orders/Prescriptions Prescriptions: New tramadol 50 mg tablet 50 mg PO BID PRN (Reason: pain) 5 Days Qty: 10 0RF Rx Instructions: For acute postoperative pain. Take as directed cephalexin 500 mg capsule 500 mg PO TID 7 Days Qty: 21 0RF No Action Pepcid Complete 10-800-165 mg tablet,chewable 1 tab PO DAILY PRN (Reason: indigestion) metoprolol succinate [Toprol XL] 25 mg tablet extended release 24 hr 25 mg PO DAILY Qty: 90 3RF atorvastatin 40 mg tablet 40 mg PO QHS Qty: 90 3RF Adult 50 Plus Probiotic 4 billion cell capsule 4,000 mmu cells PO QDAY Rx Instructions: administer with a meal [id number]-[id number]-vit K-lut 1 EACH tablet 1 ea PO DAILY levothyroxine 75 mcg tablet 75 mcg PO DAILY Referrals / Follow Up: Cesar Sanchez MD [Primary Care Provider, Family Practice] Disposition Disposition (needs filled in before D/C Order can be placed): Home, Self Care Charges/Coding Procedures Integumentary [id number]: [id number] Global Visit
[2025-07-31] MEDS: Lactobacillis Acidophilus 1 CAP PO (08:50)
[2025-07-31] MEDS: Metoprolol(XL)Succ 25 MG Tablet PO (08:51)
--- NOTE | 2025-07-31 10:44 | PHA.DC.COU.R ---
Pharmacy [facility] has performed discharge medication counseling for this patient. The patient was counseled on the following discharge medications and changes in medications for homegoing review. - Cephalexin 500 mg capsule, Tramadol 50 mg tablet The Reason for Use, instructions for use, and potential side effects were reviewed for all new medications. The patient's questions regarding all of their medications were answered. The patient was able to verbally demonstrate an understanding of their discharge medications. Medications at Discharge Home Medications [id number]-qfwg-wliv 8 mg-folic 400 mcg-K 50 mcg-lutein 300 mcg tablet 1 ea PO DAILY SUPPLEMENT 05/27/16 atorvastatin 40 mg tablet 40 mg PO QHS CHOLESTEROL #90 tabs 07/12/24 famotidine-Ca carb-mag hydrox 10 mg-800 mg-165 mg chewable tablet (Pepcid Complete) 1 tab PO DAILY PRN indigestion 07/12/24 metoprolol succinate 25 mg tablet,extended release 24 hr (Toprol XL) 25 mg PO DAILY BP #90 tabs 07/12/24 levothyroxine 75 mcg tablet 75 mcg PO DAILY THYROID 03/27/25 lactobacillus combination no.9 4 billion cell capsule (Adult 50 Plus Probiotic) 4,000 mmu cells PO QDAY 05/16/25 cephalexin 500 mg capsule 500 mg PO TID 7 days #21 caps 07/31/25 tramadol 50 mg tablet 50 mg PO BID PRN pain 5 days #10 tabs 07/31/25
--- NOTE | 2025-07-31 11:08 | CASEMGMT ---
DC order noted. RN CM into pt room, pt lying in bed in no distress. Pt denies any homegoing needs. Pt present in room and states he can assist pt as needed.
== END 2025-07-31 12:16 | disposition home or self-care (01) ==
LOC: SDC 15:48 → MS3 15:48
PROVIDERS: Anesthesiology; Admitting Provider Surgery Plastic and Reconstructive Surgery; PCP Family Medicine; Referring Provider Surgery Plastic and Reconstructive Surgery; Visit Provider Surgery Plastic and Reconstructive Surgery
PROC: (CPT 19357; principal; 2025-07-30 07:15)
DX: C50.919 Malignant neoplasm of unspecified site of unspecified female breast (principal); I10 Essential (primary) hypertension; K21.9 Gastro-esophageal reflux disease without esophagitis; Z87.891 Personal history of nicotine dependence; Z98.82 Breast implant status; E78.00 Pure hypercholesterolemia, unspecified; Z87.440 Personal history of urinary (tract) infections; Z90.12 Acquired absence of left breast and nipple
CPT/HCPCS: 11970; 19370; 00300; 36415; 84443; 94668; 96361; 96365; 96366; 96372; 99221; G0378; J2405

== ENCOUNTER → 2025-08-19 | Outpatient (CLI) | payer MEDICARE, OTHER, SELFPAY ==
[2025-08-19 09:47] LABS: Mucous, Urine 0 SEEN /hpf (<or=2+); Red Blood Cells-Urine 0 SEEN /hpf (0-5); Squamous Epithelial Cells - UA 0 SEEN /hpf (5-10)
[2025-08-19 12:18] LABS: Color, Urine Yellow (Yellow); Glucose, Dipstick Normal (Normal); Ketone-Dipstick Negative (Negative); Leukocyte Esterase-Dipstick 500 /ul (Negative); Nitrite-Dipstick Positive (Negative); Occult Blood-Urine 25 /ul (Negative); Protein-Dipstick 30 mg/dl (Negative); Specific Gravity, Urine 1.010 (1.002-1.030); Urine Bilirubin Dipstick Negative (Negative)
[2025-08-19 13:03] LABS: Microalbumin,Random Urine 27.1 mg/L (<20 mg/L)
== END | disposition home or self-care (01) ==
PROVIDERS: PCP Family Medicine; Referring Provider Family Medicine; Visit Provider Family Medicine
DX: R30.0 Dysuria (principal)
CPT/HCPCS: 81001; 82043; 87077; 87086; 87088; 87186